=== PATIENT | female | born 1960 | race Caucasian/White ===

== ENCOUNTER 2025-02-04 07:51 | Emergency (ER) | payer MEDICARE, SELFPAY ==
[2025-02-04] VITALS (20 sets, daily range): BP systolic 82–173; BP diastolic 49–81; PULSE 70–73; TEMP 37.3; O2SAT 72–98; BMI 26.9
--- NOTE | 2025-02-04 08:18 | XR_ITS ---
The [address] [address] Patient Name: JESSE FAJARDO MRN: [id number] date: 1960 Sex: F Assigned Patient Location: ED.MAIN Current Patient Location: ER Accession/Order Number: [id number] Exam Date: 02/04/2025 08:48 Report Date: 02/04/2025 08:51 At the request of: RISA ONEILL MD Procedure: XR chest 1V XR chest 1V 02/04/2025 8:34 AM SIGNS AND SYMPTOMS: ^confusion , unresponsive PROTOCOL: Frontal radiograph of the chest COMPARISON: None FINDINGS: The trachea is midline. There is an ET tube present in satisfactory position. There is a dual lead pacer device. The heart and mediastinal structures are within normal limits. Patchy airspace opacities are noted, greatest at the right lung base with a suspected small right pleural effusion. The bony thorax is intact. XR/XR chest 1V IMPRESSION: Patchy airspace opacities are noted, greatest at the right lung base with a suspected small right pleural effusion. This may represent sequelae of volume overload. Impression dictated by: Maykel Macdonald M.D. 02/04/2025 8:51 AM Dictation Location: [place] [address] Electronically authenticated by: [id number] Y Date: 02/04/2025 08:51
--- NOTE | 2025-02-04 08:18 | CT_ITS ---
The [address] [address] Patient Name: JESSE FAJARDO MRN: [id number] date: 1960 Sex: F Assigned Patient Location: ED.MAIN Current Patient Location: Accession/Order Number: [id number] Exam Date: 02/04/2025 08:43 Report Date: 02/04/2025 08:48 At the request of: RISA ONEILL MD Procedure: CT head/brain wo con CT head/brain wo con 02/04/2025 8:36 AM SIGNS AND SYMPTOMS: ^change mental status, unresponsive TECHNIQUE:Multi-detector CT axial slices of the brain were obtained without IV contrast. CT was performed with one or more of the following dose reduction techniques: Automated exposure control, adjustment of the mA and/or kV according to patient size, or use of iterative reconstruction technique. COMPARISON: None. FINDINGS: There is no shift of the midline structures, acute intracranial bleeding, mass effects, or evidence of acute ischemia. Atherosclerotic noted in the intracranial segments of the internal carotid arteries and V4 segments of the vertebral arteries. The ventricular system is normal in size. The brainstem and the cerebellum are unremarkable. The visualized intraorbital contents, the visualized paranasal sinuses, and the infratemporal soft tissues show no acute abnormality. The osseous structures in the skull base and the calvarium show no abnormality. CT/CT head/brain wo con IMPRESSION: No acute intracranial pathology. Impression dictated by: Maykel Macdonald M.D. 02/04/2025 8:48 AM Dictation Location: [place] [address] Electronically authenticated by: [id number] Y Date: 02/04/2025 08:48
--- NOTE | 2025-02-04 08:20 | CT_ITS ---
The [address] [address] Patient Name: JESSE FAJARDO MRN: [id number] date: 1960 Sex: F Assigned Patient Location: ED.MAIN Current Patient Location: ED.MAIN Accession/Order Number: [id number] Exam Date: 02/04/2025 08:52 Report Date: 02/04/2025 09:04 At the request of: RISA ONEILL MD Procedure: CT abdomen pelvis w con CT chest w con, CT abdomen pelvis w con 02/04/2025 8:40 AM SIGN AND SYMPTOMS: Altered bowel status, unresponsive CONTRAST: 100 mL of intravenous Omnipaque 300 TECHNIQUE: Multidetector CT axial slices of the chest, abdomen and pelvis were obtainedwith IV contrast. Multiplanar reformats were performed and viewed on a separate workstation and reviewed to further define anatomy and possible pathology. CT was performed with one or more of the following dose reduction techniques: Automated exposure control, adjustment of the mA and/or kV according to patient size, or use of iterative reconstruction technique. COMPARISON: None. FINDINGS: Lower neck: Thyroid gland within normal limits, no supraclavicle adenopathy. Vessels: Atherosclerotic changes are noted thoracic aorta, origins of the great vessels, and coronary arteries there is no evidence of pulmonary embolism. Mediastinum and Khadijah: Within normal limits. ET tube extends through the esophagus into the gastric lumen. Heart: Normal size. No pericardial effusion. Airways: An ET tube is present in satisfactory position Lungs: Emphysematous changes are noted in the lung parenchyma. There is dependent atelectasis at the right lung base. There is scarring in the left upper lobe which is pleural-based. Pleura: Small bilateral pleural effusions are present right greater than left. Chest Wall: There is a pacer device on the left chest wall. Abdomen: Liver: within normal limits. Bile Ducts: Normal caliber. Gallbladder: No calcified gallstones. Normal caliber wall. Pancreas: within normal limits. Spleen: within normal limits. Adrenals: within normal limits. Kidneys: Simple cysts are noted in the left renal cortex requiring no further follow-up Pelvis: Reproductive Organs: No pelvic masses. Ureters: within normal limits. Bladder: There is a Burr catheter in the bladder. Bowel: Normal caliber. An enteric tube is in satisfactory position with the tip in the gastric lumen. Mesenteric Lymph Nodes: No enlarged mesenteric lymph nodes. Peritoneum: There is a small amount of free fluid pelvis. Vessels: Atherosclerotic changes are noted in the abdominal aorta.. Retroperitoneum: within normal limits. Abdominal Wall: There is diffuse anasarca. Bones: Degenerative changes are noted in the thoracolumbar spine, hips, and sacroiliac joints. Spinal cord stimulator. There is a levoconvex curvature of the thoracolumbar spine. CT/CT abdomen pelvis w con IMPRESSION: Emphysematous changes are noted throughout the lung parenchyma. Small bilateral pleural effusions are present right greater than left. There is a small amount of free fluid in the pelvis. This is nonspecific. There is diffuse anasarca. ET tube and enteric tube are in satisfactory position. No acute intra-abdominal pathology. Impression dictated by: Maykel Macdnoald M.D. 02/04/2025 9:04 AM Dictation Location: [employer] Electronically authenticated by: [id number] Y Date: 02/04/2025 09:04
--- NOTE | 2025-02-04 08:20 | CT_ITS ---
The [address] [address] Patient Name: JESSE FAJARDO MRN: [id number] date: 1960 Sex: F Assigned Patient Location: ED.MAIN Current Patient Location: ED.MAIN Accession/Order Number: [id number] Exam Date: 02/04/2025 08:52 Report Date: 02/04/2025 09:04 At the request of: RISA ONEILL MD Procedure: CT abdomen pelvis w con CT chest w con, CT abdomen pelvis w con 02/04/2025 8:40 AM SIGN AND SYMPTOMS: Altered bowel status, unresponsive CONTRAST: 100 mL of intravenous Omnipaque 300 TECHNIQUE: Multidetector CT axial slices of the chest, abdomen and pelvis were obtainedwith IV contrast. Multiplanar reformats were performed and viewed on a separate workstation and reviewed to further define anatomy and possible pathology. CT was performed with one or more of the following dose reduction techniques: Automated exposure control, adjustment of the mA and/or kV according to patient size, or use of iterative reconstruction technique. COMPARISON: None. FINDINGS: Lower neck: Thyroid gland within normal limits, no supraclavicle adenopathy. Vessels: Atherosclerotic changes are noted thoracic aorta, origins of the great vessels, and coronary arteries there is no evidence of pulmonary embolism. Mediastinum and Khadijah: Within normal limits. ET tube extends through the esophagus into the gastric lumen. Heart: Normal size. No pericardial effusion. Airways: An ET tube is present in satisfactory position Lungs: Emphysematous changes are noted in the lung parenchyma. There is dependent atelectasis at the right lung base. There is scarring in the left upper lobe which is pleural-based. Pleura: Small bilateral pleural effusions are present right greater than left. Chest Wall: There is a pacer device on the left chest wall. Abdomen: Liver: within normal limits. Bile Ducts: Normal caliber. Gallbladder: No calcified gallstones. Normal caliber wall. Pancreas: within normal limits. Spleen: within normal limits. Adrenals: within normal limits. Kidneys: Simple cysts are noted in the left renal cortex requiring no further follow-up Pelvis: Reproductive Organs: No pelvic masses. Ureters: within normal limits. Bladder: There is a Burr catheter in the bladder. Bowel: Normal caliber. An enteric tube is in satisfactory position with the tip in the gastric lumen. Mesenteric Lymph Nodes: No enlarged mesenteric lymph nodes. Peritoneum: There is a small amount of free fluid pelvis. Vessels: Atherosclerotic changes are noted in the abdominal aorta.. Retroperitoneum: within normal limits. Abdominal Wall: There is diffuse anasarca. Bones: Degenerative changes are noted in the thoracolumbar spine, hips, and sacroiliac joints. Spinal cord stimulator. There is a levoconvex curvature of the thoracolumbar spine. CT/CT chest w con IMPRESSION: Emphysematous changes are noted throughout the lung parenchyma. Small bilateral pleural effusions are present right greater than left. There is a small amount of free fluid in the pelvis. This is nonspecific. There is diffuse anasarca. ET tube and enteric tube are in satisfactory position. No acute intra-abdominal pathology. Impression dictated by: Maykel Macdonald M.D. 02/04/2025 9:04 AM Dictation Location: [employer] Electronically authenticated by: [id number] Y Date: 02/04/2025 09:04
[2025-02-04 08:26] LABS: pH VBG 7.432 (7.330-7.430)
[2025-02-04 08:27] LABS: PCO2 VBG 77.2 mmHg (40.0-52.0)
[2025-02-04 08:32] LABS: Bilirubin Urine NEGATIVE (NEGATIVE); Blood Urine SMALL (NEGATIVE); Clarity Urine CLEAR (CLEAR); Color Urine YELLOW (YELLOW); Glucose Urine UA NEGATIVE (NEGATIVE); Ketones Urine NEGATIVE (NEGATIVE); Leukocyte Esterase Urine NEGATIVE (NEGATIVE); Nitrite Urine NEGATIVE (NEGATIVE); Protein Urine 30 mg/dL (NEG/TRACE); Specific Gravity Urine 1.025 (1.005-1.025); Urobilinogen Urine 0.2 EU/dL (0.2-1.0)
[2025-02-04 08:34] LABS: Basophils Percent Auto 0.2 % (0.2-2.0); Eosinophils Absolute Auto 0.1 10^3/uL (0.0-0.7); Eosinophils Percent Auto 0.9 % (0.9-7.0); Hematocrit 32.8 % (36.0-48.0); Hemoglobin 9.3 g/dL (12.0-16.0); Immature Granulocytes Abs Auto 0.06 10^3/uL (0.00-0.03); Immature Granulocytes Pct Auto 0.5 % (0.0-0.5); Lymphocytes Absolute Auto 1.7 10^3/uL (1.2-3.8); Lymphocytes Percent Auto 13.1 % (20.5-60.0); Mean Corpuscular HGB Conc 28.4 g/dL (29.9-35.2); Mean Corpuscular Volume 102.2 fL (81.0-99.0); Mean Platelet Volume 10.7 fL (9.5-13.5); Monocytes Absolute Auto 1.1 10^3/uL (0.3-0.8); Monocytes Percent Auto 8.4 % (1.7-12.0); Neutrophils Absolute Auto 9.8 10^3/uL (1.4-6.5); Neutrophils Percent Auto 76.9 % (43.0-75.0); Platelet Count 299 10^3/uL (150-450); Red Cell Distribution Width 20.5 % (11.0-15.0); White Blood Count 12.8 10^3/uL (4.0-11.0)
[2025-02-04 08:39] LABS: Bacteria Urine NONE SEEN #/HPF (NONE SEEN); Mucus Urine MODERATE (NONE SEEN)
[2025-02-04 08:40] LABS: Cast Seen? SEEN #/LPF (NONE SEEN); Crystals Seen? None Seen #/HPF (None Seen); Hyaline Casts Urine FEW; Squamous Epithelial Cell Urine RARE #/LPF (NONE/RARE)
--- NOTE | 2025-02-04 08:44 | ED.GENADUL1 ---
HPI HPI - General Adult General Chief complaint: Cardiac Arrest/CPR Stated complaint: UNRESPONSIVE SOB Time Seen by Provider: 02/04/25 08:18 Mode of arrival: ambulance History of Present Illness HPI narrative: Patient is a 64-year-old female who is presenting to the ER with chief complaint of confusion, change in mental status, unresponsiveness. Patient is presenting from the [facility] facility. Patient was just discharged on Friday from the [facility] [place]. Patient report was very limited by EMS staff and nurse that was taking care of the patient this morning. Nurse have reported to Marisol ISAAC that she had only been taking care of the patient for a few days and have limited information on the patient. Patient is a full code. We do not know patient's medical history, what medications she is on. Unknown if patient is on blood thinners. EMS staff reported that patient blood sugar was above 200, they also reported that patient had a GCS of 10. When patient arrived, she had a GCS of 6, 4 for eyes, 1 for verbal, 1 for responsiveness and motor. Patient will actively be intubated secondary to GCS of 6. Patient is a full code. Patient is on albuterol nebulizers, statin, metoprolol, diabetic medication, warfarin. [id number], paperwork from [facility]. Patient has non-STEMI, chronic respiratory failure with hypoxia and hypercapnia, obstructive sleep apnea with BiPAP, hyperlipidemia, myoclonus. Patient was just recently in the hospital for 17 days. Patient was discharged on January 30. Patient has history of A-fib with ablation. Patient has history of COPD with chronic respiratory failure and wears home oxygen. Patient was last at [facility] for A-fib with RVR on a Cardizem drip, also on a lidocaine drip for wide-complex tachycardia. Patient did have a CTA on January 25 that showed no PE, right-sided pleural effusion, advanced emphysema, All systems are negative except as noted/marked. All systems reviewed and otherwise negative. Nurses note and vital signs reviewed and patient is not hypoxic. General: The patient appears in severe respiratory distress, guppy breathing, increased respiratory rate. Patient is alert and orient x 0, GCS of 6; 4 4 eyes open, 1 for verbal, 1 for motor. Skin: Warm, dry, no pallor noted. There is no rash noted. No petechiae, purpura. Patient has diffuse ecchymosis to the left breast, left side of her chest, left abdomen. states this is from previous ablations and procedures that were done at the [facility]. No new bruising that sees at bedside. She does have a pacemaker/defibrillator in the left upper chest. The area around this is clean, dry, intact. This is old ecchymosis, not new per . Head: Normocephalic, atraumatic; no new scalp hematoma. Eye: Normal conjunctiva, no drainage, EOMI. PERRL, pupils are 4 mm equal, bilateral, sluggish. Ears, Nose, Mouth, and Throat: oral mucosa is dry, patient has her own teeth. No signs of emesis. Nares patent. Mouth without vesicles. Cardiovascular: Regular Rate and Rhythm, no murmur, gallop, rub Respiratory: Patient is in severe distress secondary to short shallow guppy breathing, increased respiratory rate, equal breath sounds bilateral, slightly coarse breath sounds bilateral, right greater than left. GI: no tenderness to palpation, not distended, not rigid, no tympany, no pulsatile mass, no masses appreciated. No rigidity noted. No distention Musculoskeletal: Patient has no movement to bilateral upper or lower extremities. Neurological: A&O x0, GCS of 6. 4 for eyes open,1 for motor, 1 for verbal Psychiatric: Cooperative Related Data Allergies Allergy/AdvReac Type Severity Reaction Status Date / Time nickel Allergy Severe Unknown Verified 02/04/25 09:16 pregabalin (From Lyrica) Allergy Severe Unknown Verified 02/04/25 09:16 zonisamide Allergy Severe Unknown Verified 02/04/25 09:16 Exam Constitutional Vital Signs, click to edit/add: Last Vital Signs Temp 99.2 F 02/04/25 09:15 Pulse 70 02/04/25 09:51 Resp 18 02/04/25 09:51 BP 93/49 02/04/25 09:51 Pulse Ox 92 L 02/04/25 09:50 Course Vital Signs Vital signs: Vital Signs Pulse Rate 70 02/04/25 08:45 Respiratory Rate 21 H 02/04/25 08:45 Pulse Oximetry 95 02/04/25 08:45 Temperature 99.2 F 02/04/25 09:15 Pulse Rate 70 02/04/25 09:51 Respiratory Rate 18 02/04/25 09:51 Blood Pressure 93/49 02/04/25 09:51 Pulse Oximetry 92 L 02/04/25 09:50 Medical Decision Making MDM Narrative Medical decision making narrative: Patient seen and examined: Patient arrived in no acute respiratory distress, guppy breathing, rapid breathing, GCS of 6. Patient was electively intubated. Limited information from nurse from the [facility] [place], EMS staff, no paperwork was provided initially. Sepsis protocol has been initiated. Differential diagnosis includes but is not limited to: Respiratory failure, intracranial hemorrhage, sepsis, dehydration, AMI, ACS, Diagnostics and management: Patient will have laboratory studies Relevant laboratory interpretation: Patient has a troponin of 104, BNP of 1722, lactate 2.7. Patient pH is 7.43, CO2 77, this was a venous blood gas initially. White blood cell count of 12.8. Ammonia 43 Radiological studies: Please see the formal radiological report. Patient Name: JESSE FAJARDO MRN: [id number]:[id number] date: 1960 Sex: F Assigned Patient Location: ED.MAIN Current Patient Location: ED.MAIN Accession/Order Number: [id number] Exam Date: 02/04/2025 08:52 Report Date: 02/04/2025 09:04 At the request of: RISA ONEILL MD Procedure: CT abdomen pelvis w con CT chest w con, CT abdomen pelvis w con 02/04/2025 8:40 AM SIGN AND SYMPTOMS: Altered bowel status, unresponsive CONTRAST: 100 mL of intravenous Omnipaque 300 TECHNIQUE: Multidetector CT axial slices of the chest, abdomen and pelvis were obtainedwith IV contrast. Multiplanar reformats were performed and viewed on a separate workstation and reviewed to further define anatomy and possible pathology. CT was performed with one or more of the following dose reduction techniques: Automated exposure control, adjustment of the mA and/or kV according to patient size, or use of iterative reconstruction technique. COMPARISON: None. FINDINGS: Lower neck: Thyroid gland within normal limits, no supraclavicle adenopathy. Vessels: Atherosclerotic changes are noted thoracic aorta, origins of the great vessels, and coronary arteries there is no evidence of pulmonary embolism. Mediastinum and Khadijah: Within normal limits. ET tube extends through the esophagus into the gastric lumen. Heart: Normal size. No pericardial effusion. Airways: An ET tube is present in satisfactory position Lungs: Emphysematous changes are noted in the lung parenchyma. There is dependent atelectasis at the right lung base. There is scarring in the left upper lobe which is pleural-based. Pleura: Small bilateral pleural effusions are present right greater than left. Chest Wall: There is a pacer device on the left chest wall. Abdomen: Liver: within normal limits. Bile Ducts: Normal caliber. Gallbladder: No calcified gallstones. Normal caliber wall. Pancreas: within normal limits. Spleen: within normal limits. Adrenals: within normal limits. Kidneys: Simple cysts are noted in the left renal cortex requiring no further follow-up Pelvis: Reproductive Organs: No pelvic masses. Ureters: within normal limits. Bladder: There is a Burr catheter in the bladder. Bowel: Normal caliber. An enteric tube is in satisfactory position with the tip in the gastric lumen. Mesenteric Lymph Nodes: No enlarged mesenteric lymph nodes. Peritoneum: There is a small amount of free fluid pelvis. Vessels: Atherosclerotic changes are noted in the abdominal aorta.. Retroperitoneum: within normal limits. Abdominal Wall: There is diffuse anasarca. Bones: Degenerative changes are noted in the thoracolumbar spine, hips, and sacroiliac joints. Spinal cord stimulator. There is a levoconvex curvature of the thoracolumbar spine. CT/CT chest w con IMPRESSION: Emphysematous changes are noted throughout the lung parenchyma. Small bilateral pleural effusions are present right greater than left. There is a small amount of free fluid in the pelvis. This is nonspecific. There is diffuse anasarca. ET tube and enteric tube are in satisfactory position. No acute intra-abdominal pathology. Impression dictated by: Maykel Macdonald M.D. 02/04/2025 9:04 AM Reevaluation: Shared decision making: I discussed with the patient the necessary laboratory findings and radiological findings. Social barriers to healthcare: There are no food insecurities, there is no issue with transportation, there are no insurance barriers. Disposition: I discussed with the patient COMPARISON: None. FINDINGS: There is no shift of the midline structures, acute intracranial bleeding, mass effects, or evidence of acute ischemia. Atherosclerotic noted in the intracranial segments of the internal carotid arteries and V4 segments of the vertebral arteries. The ventricular system is normal in size. The brainstem and the cerebellum are unremarkable. The visualized intraorbital contents, the visualized paranasal sinuses, and the infratemporal soft tissues show no acute abnormality. The osseous structures in the skull base and the calvarium show no abnormality. CT/CT head/brain wo con IMPRESSION: No acute intracranial pathology. Impression dictated by: Maykel Macdonald M.D. 02/04/2025 8:48 AM COMPARISON: None FINDINGS: The trachea is midline. There is an ET tube present in satisfactory position. There is a dual lead pacer device. The heart and mediastinal structures are within normal limits. Patchy airspace opacities are noted, greatest at the right lung base with a suspected small right pleural effusion. The bony thorax is intact. XR/XR chest 1V IMPRESSION: Patchy airspace opacities are noted, greatest at the right lung base with a suspected small right pleural effusion. This may represent sequelae of volume overload. Impression dictated by: Maykel Macdonald M.D. 02/04/2025 8:51 AM GCS of 6. Procedure note, intubation, Procedure note. Procedure done by . intubation. patient was preoxygenated with [id number], patient maintain occupation in the high 90s% saturation. A 4-0 Mac blade was used initially. The vocal cords were somewhat visualized. ET tube was placed, however there was belly rise with [id number], the ET tube was removed. Patient continue with [id number] maintaining oxygen in the mid to high 90s. I then used a 3-0 glide scope. Good visualization of the cords. ET tube was seen passing the cords. Initially the ET tube was placed at 25 cm at the teeth. Patient had increased breath sounds on the right compared to left. This was pulled back to 23 at the teeth. Patient equal chest rise bilateral, good condensation, good yellow exchange on the capnometer, equal breath sounds bilateral.. Patient's dentition are intact. A 7.5 ET tube was used. The balloon was checked with 10 cc of air prior to used. There is no holes in the balloon. Vocal cords were visualized well with the glide scope. The ET tube was visualized passing through the vocal cords. Patient had good color change on capnometer. Patient had equal breath sounds bilateral, good condensation in the ET tube. The ET tube was secured at 25cm at the teeth initially and then 23 cm at the teeth. Patient tolerated the procedure well without difficulty, no trauma was induced. dentition remained intact. Postintubation chest x-ray was done, patient's ET tube is sitting above the diane. no emesis occurred. MDM: Patient initially arrived, she had a GCS of 6. Patient was electively intubated. OG was placed, Burr was placed, 2 IVs were established. Patient's extremities were cold, patient was started on the first liter of warmed fluids. We were then able to get a rectal temperature that measured 99.2. Patient's heart rate and blood pressure have been normal. Patient had chest x-ray that showed proper placement of ET tube and OG tube. Patient focal to the extremities, the first liter of IV fluids was warmed. Rectal temperature was 99. Second liter of IV fluids was normal temperature. Patient then started 100 cc after that, patient was given a 30 cc/kg bolus for possible sepsis. 0840 initial page is placed to [facility] the [facility], Dr Gunter 0900 I have spoken to Randell Bianchi back at the [facility]. Patient will be admitted to the scale assembly set up worker, Dr. Villalobos. Initial vent settings was tidal volume 400, PEEP 8, initially respiratory rate was 25 until we saw the VBG, then we decreased respiratory rate to 20. 100% oxygen. Patient started fighting the ventilator slightly, patient was given a 40 cc propofol bolus and started on a propofol drip. 0942 ABG pH 7.49, CO12 60, O2 100% ABG . Patient oxygen will be turned down to 70%, decreased rate to 18, maintain PEEP. 0945 Patient was still maintaining a MAP of greater than 65-70. Pressure was dropping slightly however she was maintaining a MAP. Levophed will be started at a low dose to help maintain MAP greater than 65 but also so that propofol may be increased if needed with sedation. Patient has 2 good working IVs of a 22 in the right hand and 820 in the left AC. CT of the head, chest abdomen pelvis showed no acute findings. CT of chest abdomen pelvis shows bilateral pleural effusions, small, right greater than left. Anasarca noted, COPD changes noted. I initially thought patient may have had a right middle lobe with some right lower lobe congestion, vancomycin and Zosyn were started prophylactically. Patient had white blood cell count of 12.8, lactic acid was 2.7. Troponin 104, BNP 1722. Patient has been given IV fluids. Patient was given vancomycin and Zosyn prophylactically. Patient is on Coumadin. INR 2.63 I have spoken to the multiple times, greater than 20 minutes total, updating him multiple times. He gave permission to go back to the [facility] [place], and this is just where patient's care was as well. 0950 [facility] by myself. The report was given, no questions at this time. They are currently speaking to nursing staff and getting ready to load the patient. Patient has had one-on-one care for most of the time that patient had arrived in the ER. She has been here for approximately 2 hours. Critical care time 85 minutes exclusive from separate billable procedures that were performed. The following was considered in the determination of critical care but not limited to the level of medical decision making, intensive cardiac and/or respiratory monitoring, frequent vital sign monitoring, evaluation of laboratory studies, evaluation of radiographic studies, oxygen monitoring, and constant monitoring and speaking to family at bedside Lab Data Lab results reviewed: Yes I reviewed the patient's lab results Labs: Lab Results 02/04/25 02/04/25 02/04/25 Range/Units 08:10 08:18 08:52 WBC 12.8 H (4.0-11.0) 10^3/uL RBC 3.21 L (4.20-5.40) 10^6/uL Hgb 9.3 L (12.0-16.0) g/dL Hct 32.8 L (36.0-48.0) % MCV 102.2 H (81.0-99.0) fL MCH 29.0 (26.7-34.0) pg MCHC 28.4 L (29.9-35.2) g/dL RDW 20.5 H (11.0-15.0) % Plt Count 299 (150-450) 10^3/uL MPV 10.7 (9.5-13.5) fL Neut % (Auto) 76.9 H (43.0-75.0) % Lymph % (Auto) 13.1 L (20.5-60.0) % Sequoyah % (Auto) 8.4 (1.7-12.0) % Eos % (Auto) 0.9 (0.9-7.0) % Baso % (Auto) 0.2 (0.2-2.0) % Neut # (Auto) 9.8 H (1.4-6.5) 10^3/uL Lymph # (Auto) 1.7 (1.2-3.8) 10^3/uL Sequoyah # (Auto) 1.1 H (0.3-0.8) 10^3/uL Eos # (Auto) 0.1 (0.0-0.7) 10^3/uL Baso # (Auto) 0.0 (0.0-0.1) 10^3/uL Abs Immat Gran (auto) 0.06 H (0.00-0.03) 10^3/uL Imm/Tot Granulo (auto) 0.5 (0.0-0.5) % PT 25.3 H (9.0-11.6) sec INR 2.63 APTT 23.6 (22.3-36.2) sec Puncture Site ABG pH (7.350-7.450) ABG pCO2 (35.0-45.0) mmHg ABG pO2 (80.0-100.0) mmHg ABG HCO3 (22.0-26.0) mmol/L ABG O2 Saturation % ABG Base Excess (-2.0-2.0) mmol/L Diego Test (POSITIVE) VBG pH 7.432 H (7.330-7.430) VBG pCO2 77.2 H* (40.0-52.0) mmHg Vent Mode FiO2 % Tidal Volume Sodium 145 (136-145) mmol/L Potassium 4.1 (3.5-5.1) mmol/L Chloride 97 L (98-107) mmol/L Carbon Dioxide 47.3 H (21.0-32.0) mmol/L Anion Gap 4.8 BUN 10.0 (7.0-18.0) mg/dL Creatinine 0.22 L (0.55-1.02) mg/dL Est GFR ( Amer) >60 (>=60 mL/min/1.73m^2) Est GFR (Non-Af Amer) >60 (>=60 mL/min/1.73m^2) BUN/Creatinine Ratio 45.5 Glucose 132 H (74-106) mg/dL Lactate 2.7 H* (0.4-2.0) mmol/L Calcium 8.7 (8.5-10.1) mg/dL Magnesium 1.9 (1.8-2.4) mg/dL Total Bilirubin 0.4 (0.2-1.0) mg/dL AST 45 H (15-37) U/L ALT 36 (14-59) U/L Alkaline Phosphatase 78 (46-116) U/L Ammonia 43 H* (11-32) umol/L Troponin I High Sens 104.8 H* (4.0-51.3) pg/mL NT-Pro-B Natriuret Pep 1722.0 H* (<=900.0) pg/mL Total Protein 5.8 L (6.4-8.2) g/dL Albumin 2.6 L (3.4-5.0) g/dL Globulin 3.2 g/dL Albumin/Globulin Ratio 0.8 Free T4 0.78 (0.76-1.46) ng/dL TSH & Free T4 Interp 0.164 L (0.358-3.740) uIU/mL Urine Color Yellow (YELLOW) Urine Clarity Clear (CLEAR) Urine pH 6.0 (5.0-9.0) Ur Specific Granite 1.025 (1.005-1.025) Urine Protein 30 A (NEG/TRACE) mg/dL Urine Glucose (UA) Negative (NEGATIVE) mg/dL Urine Ketones Negative (NEGATIVE) mg/dL Urine Occult Blood Small A (NEGATIVE) Urine Nitrite Negative (NEGATIVE) Urine Bilirubin Negative (NEGATIVE) Urine Urobilinogen 0.2 (0.2-1.0) EU/dL Ur Leukocyte Esterase Negative (NEGATIVE) Urine RBC 10-20 A (0-2) #/HPF Urine WBC 2-5 A (NONE SEEN) #/HPF Ur Squamous Epith Cells Rare (NONE/RARE) #/LPF Urine Crystals None seen (None Seen) #/HPF Urine Bacteria None seen (NONE SEEN) #/HPF Urine Casts Seen A (NONE SEEN) #/LPF Hyaline Casts Few Urine Mucus Moderate A (NONE SEEN) Urine Yeast Seen A (NONE SEEN) Blood Type A Positive Antibody Screen Negative 02/04/25 Range/Units 09:34 WBC (4.0-11.0) 10^3/uL RBC (4.20-5.40) 10^6/uL Hgb (12.0-16.0) g/dL Hct (36.0-48.0) % MCV (81.0-99.0) fL MCH (26.7-34.0) pg MCHC (29.9-35.2) g/dL RDW (11.0-15.0) % Plt Count (150-450) 10^3/uL MPV (9.5-13.5) fL Neut % (Auto) (43.0-75.0) % Lymph % (Auto) (20.5-60.0) % Sequoyah % (Auto) (1.7-12.0) % Eos % (Auto) (0.9-7.0) % Baso % (Auto) (0.2-2.0) % Neut # (Auto) (1.4-6.5) 10^3/uL Lymph # (Auto) (1.2-3.8) 10^3/uL Sequoyah # (Auto) (0.3-0.8) 10^3/uL Eos # (Auto) (0.0-0.7) 10^3/uL Baso # (Auto) (0.0-0.1) 10^3/uL Abs Immat Gran (auto) (0.00-0.03) 10^3/uL Imm/Tot Granulo (auto) (0.0-0.5) % PT (9.0-11.6) sec INR APTT (22.3-36.2) sec Puncture Site Lr ABG pH 7.499 H (7.350-7.450) ABG pCO2 60.2 H* (35.0-45.0) mmHg ABG pO2 260.0 H (80.0-100.0) mmHg ABG HCO3 46.8 H (22.0-26.0) mmol/L ABG O2 Saturation >100.0 % ABG Base Excess 23.6 H (-2.0-2.0) mmol/L Diego Test Positive (POSITIVE) VBG pH (7.330-7.430) VBG pCO2 (40.0-52.0) mmHg Vent Mode Ac FiO2 100 % Tidal Volume 400 Sodium (136-145) mmol/L Potassium (3.5-5.1) mmol/L Chloride (98-107) mmol/L Carbon Dioxide (21.0-32.0) mmol/L Anion Gap BUN (7.0-18.0) mg/dL Creatinine (0.55-1.02) mg/dL Est GFR ( Amer) (>=60 mL/min/1.73m^2) Est GFR (Non-Af Amer) (>=60 mL/min/1.73m^2) BUN/Creatinine Ratio Glucose (74-106) mg/dL Lactate (0.4-2.0) mmol/L Calcium (8.5-10.1) mg/dL Magnesium (1.8-2.4) mg/dL Total Bilirubin (0.2-1.0) mg/dL AST (15-37) U/L ALT (14-59) U/L Alkaline Phosphatase (46-116) U/L Ammonia (11-32) umol/L Troponin I High Sens (4.0-51.3) pg/mL NT-Pro-B Natriuret Pep (<=900.0) pg/mL Total Protein (6.4-8.2) g/dL Albumin (3.4-5.0) g/dL Globulin g/dL Albumin/Globulin Ratio Free T4 (0.76-1.46) ng/dL TSH & Free T4 Interp (0.358-3.740) uIU/mL Urine Color (YELLOW) Urine Clarity (CLEAR) Urine pH (5.0-9.0) Ur Specific Granite (1.005-1.025) Urine Protein (NEG/TRACE) mg/dL Urine Glucose (UA) (NEGATIVE) mg/dL Urine Ketones (NEGATIVE) mg/dL Urine Occult Blood (NEGATIVE) Urine Nitrite (NEGATIVE) Urine Bilirubin (NEGATIVE) Urine Urobilinogen (0.2-1.0) EU/dL Ur Leukocyte Esterase (NEGATIVE) Urine RBC (0-2) #/HPF Urine WBC (NONE SEEN) #/HPF Ur Squamous Epith Cells (NONE/RARE) #/LPF Urine Crystals (None Seen) #/HPF Urine Bacteria (NONE SEEN) #/HPF Urine Casts (NONE SEEN) #/LPF Hyaline Casts Urine Mucus (NONE SEEN) Urine Yeast (NONE SEEN) Blood Type Antibody Screen ECG Data Attestation: I personally reviewed and interpreted this ECG as follows: (EKG interpretation. Ventricular paced rhythm at 69 beats a minute. QTc of 508. A-flutter noted) Discharge Plan Discharge Chief Complaint: Cardiac Arrest/CPR Clinical Impression: Change in mental status, Acute respiratory failure with hypoxia and hypercarbia, Elevated troponin, Bilateral pleural effusion Patient Disposition: [facility] Time of Disposition Decision: 08:37 [facility] Condition: Critical
--- NOTE | 2025-02-04 08:44 | SWNOTE1 ---
SW called down to ED to provide support for pt's . SW met with , he provided SW with some history. Doctor spoke with pt's . Plan is likely transfer to higher level of care as pt is on ventilator. SW offered to call any other family. Pt's voiced he will do this. VALENTIN took pt's to pt's room.
[2025-02-04 08:46] LABS: Alanine Aminotransferase 36 U/L (14-59); Albumin Globulin Ratio 0.8; Albumin Level 2.6 g/dL (3.4-5.0); Alkaline Phosphatase 78 U/L (46-116); Anion Gap 4.8; Aspartate Amino Transferase 45 U/L (15-37); BUN Creatinine Ratio 45.5; Bilirubin Total 0.4 mg/dL (0.2-1.0); Calcium 8.7 mg/dL (8.5-10.1); Carbon Dioxide 47.3 mmol/L (21.0-32.0); Chloride 97 mmol/L (98-107); Estimated GFR (African America >60 (>=60 mL/min/1.73m^2); Estimated GFR (Non-African Ame >60 (>=60 mL/min/1.73m^2); Globulin 3.2 g/dL; Glucose 132 mg/dL (74-106); Potassium 4.1 mmol/L (3.5-5.1); Sodium 145 mmol/L (136-145); Total Protein 5.8 g/dL (6.4-8.2)
[2025-02-04 08:49] LABS: Red Blood Count 3.21 10^6/uL (4.20-5.40)
[2025-02-04 08:53] LABS: Magnesium 1.9 mg/dL (1.8-2.4); TSH W/ REFLEX FT4 0.164 uIU/mL (0.358-3.740)
[2025-02-04 09:00] LABS: Lactate/Lactic Acid 2.7 mmol/L (0.4-2.0); Troponin I High Sensitivity 104.8 pg/mL (4.0-51.3)
[2025-02-04] MEDS: 0.9 % SODIUM CHLORIDE 1,000 ML 999 ML IV (09:09)
[2025-02-04] MEDS: VANCOMYCIN HCL 1,000 MG in 0.9 % SODIUM CHLORIDE 250 ML 250 MG IV (09:10)
[2025-02-04] MEDS: PIPERACILLIN SODIUM/TAZOBACTAM 3.375 GM in 0.9 % SODIUM CHLORIDE 50 ML IV (09:10)
[2025-02-04] MEDS: 0.9 % SODIUM CHLORIDE 1,000 ML 1000 ML IV (09:11)
[2025-02-04 09:21] LABS: Free T4 0.78 ng/dL (0.76-1.46)
[2025-02-04 09:21] LABS: INR 2.63; Partial Thromboplastin Time 23.6 sec (22.3-36.2); Prothrombin Time 25.3 sec (9.0-11.6)
--- NOTE | 2025-02-04 09:32 | PC.NURSE ---
0920- pt is moving head side to side and slighlty responding to the pain -propofol 40mg ivp given as ordered per dr bowser verbally- zosyn completed at this time - propofolol drip initiated at5 mcg to rt hand after zosyn completed - ptbp 82/60 dr bowser notifgied 3rd bag of ns initiated to rt ac at 100ml/hr as verbally ordered pt bp cycling every 5 min bp at this time is 88/50 70/min pt begins to have jerking motiomnn so propofol increased to 7.5mcg/min at 70kg
[2025-02-04 09:40] LABS: Allen Test POSITIVE (POSITIVE); Base Excess ABG 23.6 mmol/L (-2.0-2.0); Fractionated Inspired Oxygen 100 %; HCO3 ABG 46.8 mmol/L (22.0-26.0); O2 Mode VENT; Oxygen Saturation ABG >100.0 %; Puncture Site LR; pH ABG 7.499 (7.350-7.450)
[2025-02-04 09:41] LABS: Rate 20; Tidal Volume 400; Vent Mode AC
[2025-02-04 09:42] LABS: ABG PCO2 60.2 mmHg (35.0-45.0)
--- NOTE | 2025-02-04 09:45 | PC.NURSE ---
0940- propofolol increased to 15mcg/min 20g to rt ac initiated due bp was 90/[address] bowser notified and resp at bedside at this time - [facility] arrives at this time dr bowser giving report to [facility] team
[2025-02-04 09:46] LABS: Ammonia 43 umol/L (11-32)
--- NOTE | 2025-02-04 09:52 | PC.NURSE ---
[facility] team arrives and dr bowser gives report to team
--- NOTE | 2025-02-04 10:01 | PC.NURSE ---
nurse intake 2500 out 650 ml of dark urine noted - [facility] initiated levophend and propoflol
[2025-02-04 12:53] LABS: Glucometer 181 mg/dL (74-106)
== END 2025-02-04 10:15 | disposition short-term general hospital (02) ==
PROVIDERS: Emergency Provider Emergency Medicine
DX: J96.21 Acute and chronic respiratory failure with hypoxia (principal); J96.22 Acute and chronic respiratory failure with hypercapnia; I25.2 Old myocardial infarction; Z99.81 Dependence on supplemental oxygen; G47.33 Obstructive sleep apnea (adult) (pediatric); E78.5 Hyperlipidemia, unspecified; G25.3 Myoclonus; I48.91 Unspecified atrial fibrillation; J43.9 Emphysema, unspecified; Z95.810 Presence of automatic (implantable) cardiac defibrillator; Z79.01 Long term (current) use of anticoagulants; R79.89 Other specified abnormal findings of blood chemistry; J90 Pleural effusion, not elsewhere classified; R41.82 Altered mental status, unspecified
CPT/HCPCS: 31500; 31720; 36415; 36600; 70450; 71045; 71260; 74177; 80053; 81001; 82140; 82800; 82805; 82948; 83605; 83735; 83880; 84439; 84443; 84484; 85025; 85610; 85730; 86850; 86900; 86901; 87040; 87086; 93005; 94002; 96365; 96368; 99291; 99292; J2543; J2704; J3370; Q9967

== ENCOUNTER 2025-02-15 10:12 | Emergency (ER) | payer MEDICARE, SELFPAY ==
--- OUTSIDE RECORDS SUMMARY | 2025-02-04 08:00 | XMS_ITS | Encounter Summary ---
Author Organization [employer] [facility] [employer] Address [id number] [address] [place] [address] Care Team Providers Care Electrical Sign Servicer Name Role Phone Char Luu MD Primary Care Provider + Encounter Details Date Type Department Care Team (Late st Contact Info) Description 02/04/2025 8:00 AM EDT Ancillary Procedure [facility] [address] [place] [phone] Pain Social History Tobacco Use Types Packs/Day Years Used Date Smoking Tobacco: Former Smokeless Tobacco: Never Alcohol Use Standard Drinks/Week Comments Not Currently 0 (1 standard drink = 0.6 oz pur e alcohol) [facility] Utilities Answer Date Recorded In the past 12 months has [employer] electric, gas, oil, or water company threatened to shut off services in your home? No 02/04/2025 Social Connection and Isolation Panel [NHANES] A nswer Date Recorded In a typical week, how many times do you talk on the phone with family, friends, or neighbors? Three times a week 06/25/2022 How often do you get togethe r with friends or relatives? Never 06/25/2022 How often do you attend chur ch or yazidism services? Never 06/25/2022 Do you belong to any clubs o r organizations such as buddhism groups, unions, fraternal or athletic groups, or school groups? No 06/25/2022 How often do you attend meet ings of the clubs or organizations you belong to? Never 06/25/2022 Are you , , di vorced, , never , or living with a partner? 06/25/2022 AUDIT-C Answer Date Recorded Q1: How often do you have a drink containing alcohol? Never 01/15/2025 Q2: How many drinks containi ng alcohol do you have on a typical day when you are drinking? Patient does not drink Q3: How often do you have si x or more drinks on one occasion? Never 01/15/2025 Overall Financial Resource Strain (CARDIA) Answe r Date Recorded How hard is it for you to pa y for the very basics like food, housing, medical care, and heating? Very hard 06/25/2022 PHQ-2 Answer Date Recorded Total Score 18 01/15/2025 [facility] - Occupational Stress Questionnaire Answer Date Recorded Do you feel stress - tense, restless, nervous, or anxious, or unable to sleep at night because your mind is troubled all the time - these days? To some extent 06/25/2022 Exercise Vital Sign Answer Date Recorde d On average, how many days pe r week do you engage in moderate to strenuous exercise (like a brisk walk)? 0 days 06/25/2022 On average, how many minutes do you engage in exercise at this level? 0 min 06/25/2022 PRAPARE - Transportation Answer Date Re corded In the past 12 months, has l ack of transportation kept you from medical appointments or from getting medications? No 01/14 In the past 12 months, has l ack of transportation kept you from meetings, work, or from getting things needed for daily living? No 02/04/2025 Housing Instability Answer Date Recorde d Are you worried or concerned that in the next two months you may not have stable housing that you own, rent or stay in as a part of a household? No 02/04/2025 Childcare Answer Date Recorded Do problems getting child ca re make it difficult for you to work or study? No 06/25/2022 Employment Answer Date Recorded Do you need help finding a [facility] career center and/or a training program? No 06/25/2022 Hunger Screening Answer Date Recorded Within the past 12 months we worried whether our food would run out before we got money to buy more. Never True 02/04/2025 Within the past 12 months th e food we bought just didn't last and we didn't have money to get more. Never True 02/04/2025 Purpose - Life Answer Date Recorded I have a purpose and direction in my life. Somew hat Disagree 06/25/2022 Comments No Sex and Gender Information Value Date Recorded Sex Assigned at Not on file Legal Sex Female 11:29 AM EDT Gender Identity Not on file Sexual Orientation Not on file documented as of this encounter Functional Status * Intimate Partner Violence Question Answer Date of Assessment Author Within the last year, have you been humiliated or emotionally abused in other ways by your partner or ex-partner? Patient unable to answer 02/04/2025 2:15 PM EDT Annalisa Celis RN Within the last year, have you been afraid of your partner or ex-partner? Patient unable to answer 02/04/2025 2:15 PM EDT Annalisa Celis RN Within the last year, have you been raped or forced to have any kind of sexual activity by your partner or ex-partner? Patient unable to answer 02/04/2025 2:15 PM EDT Annalisa Celis RN Within the last year, have you been kicked, hit, slapped, or otherwise physically hurt by your partner or ex-partner? Patient unable to answer 02/04/2025 2:15 PM EDT Annalisa Celis RN * Question Answer Date of Assessment Author Functional Status Minimum assistance 02/04/2025 2:19 P M EDT Annalisa Celis RN documented as of this encounter Plan of Treatment Upcoming Encounters Date Type Department Care Team (Late st Contact Info) Description 03/01/2025 2:00 PM EDT Clinical Support [facility] [address] [place] [phone] documented as of this encounter Procedures Procedure Name Priority Date/Time Associated Diagnosis Comments XR CHEST 1 VW Routine 02/04/2025 8:00 AM EDT Pain documented in this encounter Results * X-ray chest 1 view (02/04/2025 8:00 AM EDT) us Scanning Provider External IMG DIAGNOSTIC IMAGIN G ORDERABLES Final Result documented in this encounter Visit Diagnoses Diagnosis Pain Generalized pain documented in this encounter Additional Health Concerns Assessment Noted Time PHQ-9 Depression Total Score: 18 025 11:23 AM EDT documented as of this encounter Care Teams Electrical Sign Servicer Relationship Specialty Start Date End Date Char Luu MD [address] [place] [phone] PCP - General Pediatrics 12/02/24 documented as of this encounter
--- OUTSIDE RECORDS SUMMARY | 2025-02-04 08:35 | XMS_ITS | Encounter Summary ---
Author Organization [employer] Address [id number] [address] [place] [address] Care Team Providers Care Graduate Advisor Name Role Phone Char uLu MD Primary Care Provider + Encounter Details Date Type Department Care Team (Late st Contact Info) Description 02/04/2025 8:35 AM EDT Ancillary Procedure [facility] [address] [place] [phone] Pain Social History Tobacco Use Types Packs/Day Years Used Date Smoking Tobacco: Former Smokeless Tobacco: Never Alcohol Use Standard Drinks/Week Comments Not Currently 0 (1 standard drink = 0.6 oz pur e alcohol) [facility] Utilities Answer Date Recorded In the past 12 months has [employer] electric, gas, oil, or water company threatened [...] often do you attend chur ch or protestant services? Never 06/25/2022 Do you belong to any clubs o r organizations such as hinduism groups, unions, fraternal or athletic groups, or [...] Answer Date Recorded Total Score 18 01/15/2025 [facility] - Occupational Stress [...] Recorded Do you need help finding a [facility] career center and/or a training program? [...] [facility] [address] [place] [phone] documented as of this encounter Procedures Procedure Name Priority Date/Time Associated Diagnosis Comments CT BRAIN WO CONT Routine 02/04/2025 8:35 AM EDT Pain documented in this encounter Results * CT brain without contrast (02/04/2025 8:35 AM EDT) us Scanning Provider External IMG CT ORDERABLES Fin al Result documented in this encounter Visit Diagnoses Diagnosis Pain Generalized pain documented in this encounter Additional Health Concerns Assessment Noted Time PHQ-9 Depression Total Score: 18 025 11:23 AM EDT documented as of this encounter Care Teams Graduate Advisor Relationship Specialty Start Date End Date Char Luu MD [address] [place] [phone] PCP - General Pediatrics 12/02/24 documented as of this encounter
--- OUTSIDE RECORDS SUMMARY | 2025-02-04 08:40 | XMS_ITS | Encounter Summary ---
Author Organization [email or web address] [facility] [employer] Address [id number] [address] [place] [address] Care Team Providers Care Wash Plant Operator Name Role Phone Char Luu MD Primary Care Provider + Encounter Details Date Type Department Care Team (Late st Contact Info) Description 02/04/2025 8:40 AM EDT Ancillary Procedure [facility] [address] [place] [place] [phone] Pain Social History Tobacco Use Types Packs/Day Years Used Date Smoking Tobacco: Former Smokeless Tobacco: Never Alcohol Use Standard Drinks/Week Comments Not Currently 0 (1 standard drink = 0.6 oz pur e alcohol) [facility] Utilities Answer Date Recorded In the past 12 months has [employer] electric, gas, oil, or water company threatened [...] often do you attend chur ch or pentecostalism services? Never 06/25/2022 Do you belong to any clubs o r organizations such as christianity groups, unions, fraternal or athletic groups, or [...] Answer Date Recorded Total Score 18 01/15/2025 [facility]at ional Health - Occupational Stress [...] Recorded Do you need help finding a [facility] career center and/or a training program? [...] [facility] [address] [place] [phone] documented as of this encounter Procedures Procedure Name Priority Date/Time Associated Diagnosis Comments CT CHEST W CONT Routine 02/04/2025 8:40 AM EDT Pain documented in this encounter Results * CT chest with contrast (02/04/2025 8:40 AM EDT) us Scanning Provider External IMG CT ORDERABLES Fin al Result documented in this encounter Visit Diagnoses Diagnosis Pain Generalized pain documented in this encounter Additional Health Concerns Assessment Noted Time PHQ-9 Depression Total Score: 18 025 11:23 AM EDT documented as of this encounter Care Teams Wash Plant Operator Relationship Specialty Start Date End Date Char Luu MD [address] [place] [phone] PCP - General Pediatrics 12/02/24 documented as of this encounter
--- OUTSIDE RECORDS SUMMARY | 2025-02-04 08:45 | XMS_ITS | Encounter Summary ---
Author Organization [employer] [employer] [facility] Address [id number] [address] [place] [address] Care Team Providers Care Editor Magazine Name Role Phone Char Luu MD Primary Care Provider + Encounter Details Date Type Department Care Team (Late st Contact Info) Description 02/04/2025 8:45 AM EDT Ancillary Procedure [facility] [address] [place] [id number] Pain Social History Tobacco Use Types Packs/Day Years Used Date Smoking Tobacco: Former Smokeless Tobacco: Never Alcohol Use Standard Drinks/Week Comments Not Currently 0 (1 standard drink = 0.6 oz pur e alcohol) [facility] Utilities Answer Date Recorded In the past 12 months has [employer], gas, oil, or water company threatened [...] often do you attend chur ch or scientologist services? Never 06/25/2022 Do you belong to any clubs o r organizations such as rastafarian groups, unions, fraternal or athletic groups, or [...] Answer Date Recorded Total Score 18 01/15/2025 [facility] - Occupational Stress [...] Recorded Do you need help finding a [facility] career center and/or a training program? [...] Support [facility] [address] [place] [id number] documented as of this encounter Procedures Procedure Name Priority Date/Time Associated Diagnosis Comments CT ABDOMEN AND PELVIS W CONT Routine 02/04/2025 8:45 AM EDT Pain documented in this encounter Results * CT abdomen and pelvis with contrast (02/04/2025 8:45 AM EDT) us Scanning Provider External IMG CT ORDERABLES Fin al Result documented in this encounter Visit Diagnoses Diagnosis Pain Generalized pain documented in this encounter Additional Health Concerns Assessment Noted Time PHQ-9 Depression Total Score: 18 025 11:23 AM EDT documented as of this encounter Care Teams Editor Magazine Relationship Specialty Start Date End Date Char Luu MD [address] [place] [phone] PCP - General Pediatrics 12/02/24 documented as of this encounter
--- OUTSIDE RECORDS SUMMARY | 2025-02-04 10:58 | XMS_ITS | Encounter Summary ---
Author Organization [facility] centerKustomNote tem Address [id number] [address] [place] [address] Care Team Providers Care Creping Machine Operator Name Role Phone Houston Brown MD Primary Care Provider + Reason for Referral * Consultation (Routine) - Pending Review Specialty Diagnoses / Procedures Referred By Contac t Referred To Contact Medication Management Diagnoses senior living (current) use of anticoagulants Typical atrial flutter ([facility]) Khang Moreland MD [address] [place] [address], [address] [place] [id number] Phone: tel: fax: [facility] - Pharmacy Medication Management [address] [address] Phone: tel:[phone] fax: Referral ID Status Reason Start Date Expiration Date Visits Requested Visits Authorized [id number] Pending Review Specialty Services Required 02/12/2025 02/12/2026 1 1 * Misc (Routine) - Pending Review Specialty Diagnoses / Procedures Referred By Contac t Referred To Contact Procedures Discharge Follow-Up Khang Moreland MD [address] [facility], [address] [place] [id number] Phone: tel: fax: Referral ID Status Reason Start Date Expiration Date V isits Requested Visits Authorized [id number] Pending Review 02/12/2025 02/12/2026 1 1 * Misc (Routine) - Pending Review Specialty Diagnoses / Procedures Referred By Contac t Referred To Contact Diagnoses Coagulase negative Staphylococcus bacteremia manager terminal (current) use of anticoagulants Typical atrial flutter ([facility]) COPD, severe ([facility]) Chronic respiratory failure with hypoxia and hypercapnia ([facility]) WILIAN treated with BiPAP Procedures Follow-up with primary care provider Khang Moreland MD [address] [place] [address] Phone: tel: fax: Referral ID Status Reason Start Date Expiration Date V isits Requested Visits Authorized [id number] Pending Review 02/12/2025 02/12/2026 1 1 * Misc (Routine) - Pending Review Specialty Diagnoses / Procedures Referred By Contac t Referred To Contact Procedures Adult diet Khang Moreland MD [address] [place] [address], [address] [place] [address] Phone: tel: fax: Referral ID Status Reason Start Date Expiration Date V isits Requested Visits Authorized [id number] Pending Review 02/12/2025 02/12/2026 1 1 Reason for Visit * Auth/Cert Specialty Diagnoses / Procedures Referred By Contac t Referred To Contact Diagnoses Acute on Chronic Respiratory Failure [address] [address] Referral ID Status Reason Start Date Expiration Date Visits Re quested Visits Authorized [id number] 1 1 Encounter Details Date Type Department Care Team (Latest Contact Info) Description 02/04/2025 10:58 AM EDT - 02/12/2025 4:14 PM EDT Hospital Encounter [facility] - GEN 5 Acute [address] [place] [phone] Alejo Villalobos MD [address] [facility] [address] [facility] [place] [phone] Sha Garcia MD [address] [facility] [place] [address] Coagulase negative Staphylococcus bacteremia (Primary Dx); Chronic low back pain, unspecified back pain laterality, unspecified whether sciatica present; senior living (current) use of anticoagulants; Typical atrial flutter (CMS-HCC); COPD, severe (CMS-HCC); Chronic respiratory failure with hypoxia and hypercapnia (CMS-HCC); WILIAN treated with BiPAP Discharge Disposition: Alf Facility-Medicare Cert Social History Tobacco Use Types Packs/Day Years Used Date Smoking Tobacco: Former Smokeless Tobacco: Never Alcohol Use Standard Drinks/Week Comments Not Currently 0 (1 standard drink = 0.6 oz pur e alcohol) [facility] Utilities Answer Date Recorded In the past 12 months has [employer]), gas, oil, or water [employer] threatened to shut off services in your home? No 02/04/2025 Social Connection and Isolation Panel [NHANES] A nswer Date Recorded In a typical week, how many times do you talk on the phone with family, friends, or neighbors? Three times a week 06/25/2022 How often do you get togethe r with friends or relatives? Never 06/25/2022 How often do you attend [facility] or roman catholic services? Never 06/25/2022 Do you belong to any clubs o r organizations such as voodoo groups, unions, fraternal or athletic groups, or [...] Answer Date Recorded Total Score 18 01/15/2025 [facility] - Occupational [...] Recorded Do you need help finding a l al career center and/or a training program? No 06/25/2022 Hunger Screening Answer Date Recorded Within the past 12 months we worried whether our food would run out before we got money to buy more. Never True 02/07/2025 Within the past 12 months th e food we bought just didn't last and we didn't have money to get more. Never True 02/07/2025 Purpose - Life Answer Date Recorded I have a purpose and direction in my life. Somew hat Disagree 06/25/2022 Comments No Sex and Gender Information Value Date Recorded Sex Assigned at Not on file Legal Sex Female 11:29 AM EDT Gender Identity Not on file Sexual Orientation Not on file documented as of this encounter Last Filed Vital Signs Vital Sign Reading Time Taken Comments Blood Pressure 116/78 02/12/2025 12:03 PM EDT Pulse 70 02/12/2025 2:25 PM EDT Temperature 36.9 C (98.5 F) 02/12/2025 12:03 PM EDT Respiratory Rate 24 02/12/2025 2:25 PM EDT Oxygen Saturation 100% 02/12/2025 2:25 PM EDT Inhaled Oxygen Concentration - - Weight 60.4 kg (133 lb 2.5 oz) 02/12/2025 4:04 A M EDT Height 157.5 cm (5' 2.01 ) 02/06/2025 11:51 PM E DT Body Mass Index 24.35 02/06/2025 11:51 PM EDT documented in this encounter Functional Status * Question Answer Date of Assessment Author Functional Status Assistive device 02/07/2025 10:43 AM EDT Rajesh Paris RN * Intimate Partner Violence Question Answer Date [...] 02/04/2025 2:15 PM EDT Annalisa Celis RN documented as of this encounter Mental Status * Question Answer Entry Date Author Overall Cognitive Status X 02/12/2025 8:55 AM EDT Ethan Servin PTA documented in this encounter Discharge Summaries * Khang Moreland MD - 02/12/2025 11:30 AM EDT Images from the original note were not included. 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 Continue coumadin. COPD on 3L NC on Azithromycin 3 times weekly WILIAN on BiPAP nightly Iron-deficiency anemia on iron tablets every other day Hypothyroidism - unable to resume levothyroxine in due to duloxetine drug interaction Hyperlipidemia on Lipitor Chronic tremors - worked up by Neurology in previous admission. Likely drug- induced tremors (gabapentin, Cymbalta, beta agonist) and likely exacerbated by acute on chronic hypercapnia from COPD. Reduced gabapentin to 100 mg TID. Outpatient follow up in [facility], per PREVIOUS admission recommendation. Chronic back on on chronic opiate use Anxiety disorder, unspecified - on home Cymbalta, BuSpar, duloxetine, trazodone Discharge Disposition: Alf Facility-Medicare Cert Code Status: Full Code Active Issues Requiring Follow-up: Follow up with Primary Care Provider within 1-2 weeks (follow up on sepsis, bacteremia, pneumonia, pain control, weekly labs while on antibiotics, and repeat blood cultures results). Follow up with Pulmonology within 1-2 weeks (follow up on acute hypoxic respiratory failure likely in setting of sepsis, pneumonia, and COPD exacerbation) Follow up with Infectious disease within 1-2 weeks (follow up on staph bacteremia on IV vancomycin and repeat labs in IV vanco level, and repeat blood cultures at specific dates on the order requisition) Follow up with palliative care within 1-2 weeks (follow up on code status discussion and constipation on Dulcolax) Outpatient Follow-up: Future Appointments Date Time Provider Department Center 03/01/2025 2:00 PM [facility] Referrals and Follow-ups to Schedule Ambulatory referral to Anticoagulation Monitoring Home health agency or extended care facility: No Comment - SNF Bridging preference for procedure/surgery: No bridging is necessary Date warfarin started: 02/06/2025 Comment - Home med Warfarin tablet strength: 3 mg Current dosing instructions: Dose Coumadin based on INR and should be adjusted by anticoagulation clinic/PCP Basic Metabolic Panel (Once a week) Release to patient via MyChart?: Immediate Blood culture (2) Obtain repeat blood cultures on 03/04/2025 and 03/18/2025. Send the results to 1. HOUSTON BROWN MD, PHD [address] [facility] [phone] Isiah Felix [facility] [address] [facility] [address] [facility] Infectious Disease [facility] [phone] Release to patient via MyChart?: Immediate CBC auto differential (Once a week) Release to patient via MyChart?: Immediate Vancomycin, trough (Once a week) Release to patient via MyChart?: Immediate Test Results Pending at Discharge: DETAILS OF HOSPITAL STAY Presenting Problem: Tachycardia [R00.0] Acute on chronic respiratory failure ([facility]) [J96.20] Non-sustained ventricular tachycardia ([facility]) [I47.29] Consulting Services: Consults: Cardiology, Infectious Disease, Pulmonology, and Palliative Care Hospital Course: Minnie Cortez is a 64 y.o. female with a past medical history of chronic hypercarbic respiratory failure secondary to COPD on 3L O2 (baseline CO2: 60), WILIAN, and paroxysmal A-Fib on Warfarin s/p prior DCCV, CTI RFA ablation with dual-chamber pacemaker placement on previous admission one week ago. Patient was recently hospitalized at [facility] from 02/03 01/30 due to Afib with RVR, and situation was C/B intubation sedation in the ICU due to altered mentation and removing BiPAP machine from progressive unit. Patient was extubated after a couple of days, and had AV node RFA with dual chamber pacemaker placement by electrophysiology and recommended to continue flecainide and metoprolol if converted back to AFib with RVR. Patient was discharged on therapeutic range Coumadin INR 2.8, and was sent [place]S near [place]. Patient was found unresponsive at SNF, brought to the hospital, intubated, admitted to ICU for acute on chronic hypoxic hypercapnic respiratory failure. Patient was treated for COPD exacerbation with5 day course of prednisone along with DuoNeb and Breo Ellipta. Device interrogation of dual-chamberpacemaker resulted with no events in the past 24 hours (02/05/2025). Electrophysiology consulted and discontinued flecainide and metoprolol. EP recommended continuing anticoagulation with warfarin for thromboembolic prophylaxis. Patient was found to have staph hominis bacteremia likely source ppm. Id has evaluated the site of PPM There was some hematoma around the pacer site but no erythema or signs of cellulitis. It was minimally tender to palpation in no obvious pocket infection. Repeat bloodcultures are negative. Per ID, repeat CT chest from 02/04 and 3 do not appear significantly different. TTE negative for endocarditis. Id recommended IV Vanco x2 weeks of therapy (EOT 02/18/2025) followed by surveillance blood cultures at 2 and 4 weeks post antibiotic completion (03/04/2025 and 03/18/2025 respectively). Monitor CBC, BMP, and vanco levels weekly. Patient has a history of hypothyroidism but unable to resume home levothyroxine due to duloxetine drug interaction. Patient has chronic tremors in bilateral upper extremities which are notable this admission. It has been worked up by Neurology in previous admission. Likely drug induced tremors (gabapentin, Cymbalta, and beta agonist) in likely exacerbated by acute on chronic hypercapnia from COPD. Upper extremity tremors did slowly improve with improvement in her clinical status and respiratorystatus. Patient is supposed to follow up with Neurology as outpatient and [facility], per previous admission recommendation. On the day of discharge, patient appears comfortable on 3 L NC, her baseline. Patient is anxious togo to SNF. Patient denied fever, chills, nausea, and vomiting. Patient states her upper extremity tremor comes and goes. Patient is agreeable to discharge today. Today, 02/12/2025 , patient is AAOx3, in NAD, tolerating diet well, with no acute concerns or complaints. Aware and agreeable to plan for discharge to SNF. Patient is medically ready and cleared for discharge with appropriate follow ups in place. Physical Exam at Discharge: DISCHARGE CONDITION: Stable Pulse: 70 Resp: 22 BP: 116/78 Temp: 36.9 ??C (98.5 ??F) Weight: Weight: 60.4 kg (133 lb 2.5 oz) Physical Exam Vitals reviewed. Constitutional: General: She is not in acute distress. Appearance: She is ill-appearing. Eyes: General: No scleral icterus. Right eye: No discharge. Left eye: No discharge. Cardiovascular: Rate and Rhythm: Normal rate. Pulmonary: Effort: No respiratory distress. Breath sounds: No wheezing or rales. Comments: On 3L NC Abdominal: General: There is no distension. Tenderness: There is no abdominal tenderness. There is no guarding or rebound. Musculoskeletal: General: No swelling or tenderness. Skin: General: Skin is warm. Coloration: Skin is not jaundiced. Neurological: Mental Status: She is oriented to person, place, and time. Mental status is at baseline. Comments: Slight tremors in upper extremities (mild improvement from her baseline) Psychiatric: Mood and Affect: Mood normal. LABS Results from last 7 days Lab Units 02/12/2543702/11/2551802/10/25 0518 WBC x10E9/L 6.1 6.6 5.1 HEMOGLOBIN g/dL 9.5* 10.2* 9.6* HEMATOCRIT % 29.9* 31.9* 30.5* PLATELETS X10E9/L 179 159 129* Results from last 7 days Lab Units 02/12/25 0438 02/11/25 0519 02/10/25 0518 02/07/25 0217 02/06/25 0201 APTT sec -- -- -- -- 26 INR 2.0* 2.1* 1.8* < > 1.8* < > = values in this interval not displayed. Results from last 7 days Lab Units 02/12/25 0438 02/11/25 1503 02/11/2519 02/10/25 0518 SODIUM mmol/L 147* -- 146 145 POTASSIUM mmol/L 4.1 4.0 3.8 4.3 CHLORIDE mmol/L 94* -- 97* 98 CO2 mmol/L >45* -- >45* 45* BUN mg/dL 10 -- 12 10 CREATININE mg/dL 0.25* -- 0.28* 0.28* CALCIUM mg/dL 8.4* -- 8.3* 8.3* PHOSPHORUS mg/dL 2.7 -- 2.6 2.5 MAGNESIUM mg/dL 2.0 2.1 1.8 1.9 Results from last 7 days Lab Units 02/12/25 0438 02/11/25 0519 02/10/25 0518 ALBUMIN g/dL 3.2 3.4 3.2 PROTEIN TOTAL g/dL 4.8* 5.1* 4.9* ALT U/L 12 12 13 AST U/L 12 9 9 ALK PHOS U/L 48 49 46 Results from last 7 days Lab Units 02/12/25 0438 02/11/25 0519 02/10/25 0518 GLUCOSE mg/dL 91 194* 87 Lab Results Component Value Date HGBA1C 4.8 02/04/2025 Lab Results Component Value Date SPECIFICGRA 1.032 02/04/2025 LEUKOCYTE Negative 02/04/2025 UROBILINOGEN <1.1 eu/dL 02/04/2025 IMAGING X-ray chest 1 view Result Date: 02/05/2025 CLINICAL INFORMATION: Shortness of breath, difficulty breathing. TECHNIQUE: Chest radiograph, single AP view. COMPARISON: 02/04/2025. FINDINGS Endotracheal tube and right IJ catheter in similar position. Enteric tube sidehole projects over the stomach. Cardiomediastinal silhouette is unchanged. No pneumothorax. Small bilateral pleural effusions. Mild central pulmonary vascular congestion, similar to prior. IMPRESSION: * No significant interval change. Approved by Resident Mathieu Jones DO on 02/05/2025 7:12 AM Manuel Mclean have personally reviewed the image(s) and agree with and/or edited the report Finalized by Manuel Milligan on 02/05/2025 8:00 AM X-ray chest 1 view Result Date: 02/04/2025 Chest radiograph dated: 02/04/2025. Reason for study: new line cvc. Comparison studies: Chest x-ray from 01/28/2025. Technique: Portable upright chest view AP. Findings/impression: 1. Endotracheal tubedistal tip is approximately 3.5 cm from the diane. Right central venous catheter with the distal tip at the central right brachiocephalic vein. Enteric tube is seen coursing below the level of the diaphragm with the distal tip not seen. 2. Nonenlarged cardiomediastinal silhouette. Possible trace interstitial edema more pronounced on the right. 3. Small bilateral pleural effusions. Scant bibasilar airspace opacities which may relate to subsegmental atelectatic change versus developing pneumoniain the appropriate clinical setting. Minimally improved aeration of right lung base. 4. No definitive pneumothorax. Finalized by Aden Ellsworth MD on 02/04/2025 1:21 PM LAST ECHO Echo complete W/O contrast Result Date: 02/08/2025 Left Ventricle: Left ventricle appears normal in size. There is mild increased wall thickness/hypertrophy. Systolic function is normal with an ejection fraction of 65-70%. Unable to assess diastolic function due to atrial fibrillation/flutter. Tricuspid Valve: There is moderate regurgitation. RVSP c alculated at 50 mmHg. RVSP is based on RA pressure of 8 mmHg. Right Ventricle: Systolic function isnormal. Normal tricuspid annular plane systolic excursion. A pacer wire is present in the right ventricle. Aorta: The aortic root is normal in size. Pericardium: There is no pericardial effusion. Echo limited W/O contrast Result Date: 01/25/2025 Left Ventricle: Left ventricle is small. There is moderate increased wall thickness/hypertrophy. Systolic function is normal with an ejection fraction of 60-65%. Echo complete W/O contrast Result Date: 01/15/2025 Left Ventricle: Left ventricle appears normal in size. Systolic function is normal with an ejectionfraction of 55-60%. CULTURES Microbiology Results No results found for the last 168 hours. MEDICATION LIST Medication List START taking these medications Instructions Last Dose Given Next Dose Due ferrous sulfate 325 (65 FE) MG tablet Take 1 tablet (325 mg total) by mouth every other day for 60 days. * heparin lock flush (porcine) 10 unit/mL injection Infuse 1-5 mL (10-50 Units total) into a venous catheter as needed (line care per nursing agency protocol.). * heparin lock flush (porcine) injection 100 unit/mL solution Infuse 1-5 mL (100-500 Units total) into a venous catheter as needed (line care per nursing agency protocol.). HYDROcodone-acetaminophen 5-325 mg per tablet Commonly known as: NORCO Take 1 tablet by mouth every 6 (six) hours as needed for pain for up to 3 days. Max Daily Amount: 4tablets sodium chloride injection Infuse 10-20 mL into a venous catheter as needed for line care (line care per nursing agency protocol.). vancomycin 1,000 mg in sodium chloride 0.9 % 250 mL IVPB W/ADAPTER Infuse 1,000 mg into a venous catheter every 12 (twelve) hours for 8 days. End of therapy 02/18/2025 Weekly CBC, BMP and vanco trough while on vancomycin , fax results to [phone] * This list has 2 medication(s) that are the same as other medications prescribed for you. Read thedirections carefully, and ask your doctor or other care provider to review them with you. CHANGE how you take these medications Instructions Last Dose Given Next Dose Due warfarin 1 mg tablet Commonly known as: COUMADIN Start taking on: February 13, 2025 What changed: how much to take how to take this when to take this additional instructions Take 3 tablets (3 mg total) by mouth in the evening. CONTINUE taking these medications Instructions Last Dose Given Next Dose Due acetaminophen 325 mg tablet Commonly known as: TYLENOL Take 2 tablets (650 mg total) by mouth every 6 (six) hours as needed for pain. * albuterol 90 mcg/actuation inhaler Commonly known as: PROVENTIL HFA;VENTOLIN HFA Inhale 2 puffs every 6 (six) hours as needed for wheezing. * albuterol 0.63 mg/3 mL nebulizer solution Commonly known as: ACCUNEB Inhale 3 mL (0.63 mg total) by nebulization every 4 (four) hours as needed for wheezing or shortness of breath. atorvastatin 10 mg tablet Commonly known as: LIPITOR Take 1 tablet (10 mg total) by mouth in the morning. azithromycin 250 mg tablet Commonly known as: ZITHROMAX Take 1 tablet (250 mg total) by mouth 3 (three) times a week. Friday, , Friday busPIRone 5 mg tablet Commonly known as: BUSPAR Take 2 tablets (10 mg total) by mouth nightly. DULOXETINE ORAL Take 80 mg by mouth in the morning. rjyggtvgijj-sdcrpvcbq-brdecdux 100-62.5-25 mcg blister with device Commonly known as: TRELEGY ELLIPTA Inhale 1 puff in the morning. Lot Number: [id number] Expiration Date: 01/2026 Lot Number: [id number] Expiration Date: 02/2026. furosemide 20 mg tablet Commonly known as: LASIX Take 1 tablet (20 mg total) by mouth daily. gabapentin 300 mg capsule Commonly known as: NEURONTIN Take 1 capsule (300 mg total) by mouth 3 (three) times a day. hydrOXYzine 25 mg tablet Commonly known as: ATARAX Take 1 tablet (25 mg total) by mouth as needed in the morning and 1 tablet (25 mg total) as needed at noon and 1 tablet (25 mg total) as needed in the evening and 1 tablet (25 mg total) as needed before bedtime. ipratropium-albuteroL 0.5 mg-3 mg(2.5 mg base)/3 mL nebulizer Commonly known as: DUONEB Inhale 3 mL by nebulization in the morning and 3 mL at noon and 3 mL in the evening. liothyronine 25 MCG tablet Commonly known as: CYTOMEL Take 1 tablet (25 mcg total) by mouth in the morning. loratadine 10 mg tablet Commonly known as: CLARITIN Take 1 tablet (10 mg total) by mouth in the morning. MUCINEX 600 mg tablet extended release 12hr Generic drug: guaiFENesin Take 1 tablet (600 mg total) by mouth every 12 (twelve) hours. oxygen Inhale continuously. traZODone 50 mg tablet Commonly known as: DESYREL Take 0.5 tablets (25 mg total) by mouth nightly. * This list has 2 medication(s) that are the same as other medications prescribed for you. Read thedirections carefully, and ask your doctor or other care provider to review them with you. STOP taking these medications metoprolol succinate XL 50 mg 24 hr tablet Commonly known as: TOPROL XL Where to Get Your Medications These medications were sent to [address] [place] [address] [address] ferrous sulfate 325 (65 FE) MG tablet You can get these medications from any pharmacy Bring a paper prescription for each of these medications HYDROcodone-acetaminophen 5-325 mg per tablet vancomycin 1,000 mg in sodium chloride 0.9 % 250 mL IVPB W/ADAPTER Information about where to get these medications is not yet available Ask your nurse or doctor about these medications heparin lock flush (porcine) 10 unit/mL injection heparin lock flush (porcine) injection 100 unit/mL solution sodium chloride injection warfarin 1 mg tablet The patient is stable for discharge to SNF. Return precautions were discussed. We discussed the need for follow up with primary care, pulmonology cardiology/electrophysiology, Infectious Disease, andpalliative Care. The patient stated their understanding and has no further questions at this time. Khang Moreland MD Internal Medicine Resident 02/12/25 12:37 PM Cosigned by Sha Garcia MD at 02/12/2025 5:16 PM EDT Associated attestation - Sha Garcia MD - 02/12/2025 5:16 PM EDT I have seen and discussed the patient during rounds. I performed and participated in the critical/gamez portions of the service. I was directly involved in the management and treatment plan of the patient. I reviewed the resident's note and agree with the findings and plan. I have spent 40 minutes preparing this discharge Sha Garcia MD [facility] Clinical assistant professor of chemistry in the Department of Internal Medicine , [facility] documented in this encounter Discharge Instructions * Discharge Instructions* Khang Moreland MD - 02/12/2025 10:54 AM EDT INTERNAL MEDICINE DISCHARGE INSTRUCTIONS: - Meds - Start taking: Oral ferrous sulfate. IV vancomycin as prescribed. Stop taking: Metoprolol and flecainide, per electrophysiology Please continue taking your medications as prescribed - Diet & Activity - We recommend your diet be regular diet as tolerated Avoid intense physical activity until evaluated by your primary care provider. - Follow Ups - Please follow up with the following specialists when you leave: Follow up with Primary Care Provider within 1-2 weeks (follow up on sepsis, bacteremia, pneumonia, pain control, weekly labs while on antibiotics, and repeat blood cultures results). Follow up with Pulmonology within 1-2 weeks (follow up on acute hypoxic respiratory failure likely in setting of sepsis, pneumonia, and COPD exacerbation) Follow up with Infectious disease within 1-2 weeks (follow up on staph bacteremia on IV vancomycin and repeat labs in IV vanco level, and repeat blood cultures at specific dates on the order requisition) Follow up with palliative care within 1-2 weeks (follow up on code status discussion and constipation on Dulcolax) - Emergencies - If you experience new or worsening symptoms, including chest pain or shortness of breath, please call 911 or return to the emergency department immediately. documented in this encounter Medications at Time of Discharge acetaminophen (TYLENOL) 325 mg tablet Take 2 tablets (650 mg total) by mouth every 6 (six) hours as needed for pain. 30 tablet 01/25/2025 albuterol (ACCUNEB) 0.63 mg/3 mL nebulizer solution Inhale 3 mL (0.63 mg total) by nebulization every 4 (four) hours as needed for wheezing or shortness of breath. albuterol (PROVENTIL HFA;VENTOLIN HFA) 90 mcg/actuation inhaler Inhale 2 puffs every 6 (six) hours as needed for wheezing. atorvastatin (LIPITOR) 10 mg tablet Take 1 tablet (10 mg total) by mouth in the morning. azithromycin (ZITHROMAX) 250 mg tabletIndications :COPD, severe (CMS-HCC) Take 1 tablet (250 mg total) by mouth 3 (three) times a week. Friday, , Friday02/02/2025 6 busPIRone (BUSPAR) 5 mg tablet Take 2 tablets (10 mg total) by mouth nightly. duloxetine HCl (DULOXETINE ORAL) Take 80 mg by mouth in the morning. ferrous sulfate 325 (65 FE) MG tablet Take 1 tablet (325 mg total) by mouth every other day for 60 days. 30 tablet 02/12/2025 5 fluticasone-umecl idin-vilanter (TRELEGY ELLIPTA) 100-62.5-25 mcg blister with deviceIndications :COPD, severe ([facility]) Inhale 1 puff in the morning. Lot Number: [id number] Expiration Date: 01/2026 Lot Number: [id number] Expiration Date: 02/2026. 2 each 11/15/2024 furosemide (LASIX) 20 mg tablet Take 1 tablet (20 mg total) by mouth daily. 01/30/2025 gabapentin (NEURONTIN) 300 mg capsuleIndication s:Myoclonus Take 1 capsule (300 mg total) by mouth 3 (three) times a day. 01/30/2025 guaiFENesin (MUCINEX) 600 mg tablet extended release 12hr Take 1 tablet (600 mg total) by mouth every 12 (twelve) hours. heparin lock flush, porcine, 10 unit/mL injection Infuse 1-5 mL (10-50 Units total) into a venous catheter as needed (line care per nursing agency protocol.). 02/09/2025 heparin lock flush, porcine, injection 100 unit/mL solution Infuse 1-5 mL (100-500 Units total) into a venous catheter as needed (line care per nursing agency protocol.). 02/09/2025 HYDROcodone-aceta minophen (NORCO) 5-325 mg per tabletIndications :Chronic low back pain, unspecified back pain laterality, unspecified whether sciatica present Take 1 tablet by mouth every 6 (six) hours as needed for pain for up to 3 days. Max Daily Amount: 4 tablets 12 tablet 02/12/2025 5 hydrOXYzine (ATARAX) 25 mg tablet Take 1 tablet (25 mg total) by mouth as needed in the morning and 1 tablet (25 mg total) as needed at noon and 1 tablet (25 mg total) as needed in the evening and 1 tablet (25 mg total) as needed before bedtime. ipratropium-albut Fredy (DUONEB) 0.5 mg-3 mg(2.5 mg base)/3 mL nebulizerIndicati ons:COPD, severe ([facility]) Inhale 3 mL by nebulization in the morning and 3 mL at noon and 3 mL in the evening. 01/30/2025 liothyronine (CYTOMEL) 25 MCG tablet Take 1 tablet (25 mcg total) by mouth in the morning. 01/30/2025 loratadine (CLARITIN) 10 mg tablet Take 1 tablet (10 mg total) by mouth in the morning. oxygen Inhale continuously. sodium chloride injection Infuse 10-20 mL into a venous catheter as needed for line care (line care per nursing agency protocol.). 02/09/2025 traZODone (DESYREL) 50 mg tablet Take 0.5 tablets (25 mg total) by mouth nightly. vancomycin 1,000 mg in sodium chloride 0.9 % 250 mL IVPB W/ADAPTER Infuse 1,000 mg into a venous catheter every 12 (twelve) hours for 8 days. End of therapy 02/18/2025 Weekly CBC, BMP and vanco trough while on vancomycin , fax results to [phone] 1 each 02/10/2025 warfarin (COUMADIN) 1 mg tablet Take 3 tablets (3 mg total) by mouth in the evening. 02/13/2025 documented as of this encounter Progress Notes * Harish Grewal MD - 02/12/2025 2:34 PM EDT Images from the original note were not included. Academic Pulmonology Progress Note Patient - Minnie Cortez Age - 64 y.o. - 1960 Date of Admission - 02/04/2025 10:58 AM ICU Length of Stay: 5d 2h History of present illness: Minnie Cortez is a 64 y.o. female with a past medical history of chronic hypoxic, hypercapnic respiratory failure secondary to COPD on 3L O2 (baseline CO2: 60), WILIAN, and paroxysmal A-Fib on Warfarins/p prior DCCV, CTI RFA ablation with dual-chamber pacemaker placement. Patient was recently hospitalized at [facility] from 02/03 01/30 due to Afib with RVR, and situation was complicated by intubation in the ICU due to altered mentation. Patient was extubated after a couple ofdays, and had AV node RFA with dual chamber pacemaker placement by electrophysiology and recommended to continue flecainide and metoprolol if converted back to AFib with RVR. Patient was discharged on therapeutic range Coumadin INR 2.8, and was sent to [facility] near [place]. Patient was readmitted from [facility], after being found unresponsive at [facility] and had a GCS score of [address] to [address] hospital and decreased to 6 which required intubation for protection of airway. Patient was then transferred back to [facility] ICU. CT brain without contrast and CT chest abdomen and pelvis with contrast were done at [place], and only remarkable finding was pleural effusio n b/l with jdjpv-[id number]-smll-left, and some anasarca in the abdomen. Oliveros interrogation of AICD showed no event occurred any time during this morning or afternoon. Electrophysiology was consulted for evaluation as patient is telemetry showed concerns for NSVT. No further information was known, and patient was intubated and sedated upon arrival. Patient was extubated on 02/05. Subjective No new events overnight. Patient tolerated BiPAP overnight and was weaned to her baseline 3 L nasalcannula in the morning. Discharge planning for today is in progress. Objective Vitals Temp: [36.8 ??C (98.3 ??F)-37 ??C (98.6 ??F)] 36.9 ??C (98.5 ??F) Pulse: [70] 70 Resp: [14-24] 22 BP: (116-137)/(67-109) 116/78 SpO2: [95 %-100 %] 100 % O2 Device: Nasal cannula O2 Flow Rate (L/min): [3 L/min-4 L/min] 3 L/min Weight: Admission weight: 57.2 kg (126 lb 1.7 oz) Wt Readings from Last 3 Encounters: 02/12/25 60.4 kg (133 lb 2.5 oz) 01/30/25 57.2 kg (126 lb 1.7 oz) 01/14/25 59 kg (130 lb 1.1 oz) Input/Output: Intake/Output Summary (Last 24 hours) at 02/12/2025 1435 Last data filed at 02/12/2025 1207 Gross per 24 hour Intake 1010 ml Output 3200 ml Net -2190 ml Ventilator: Settings Vent Mode: S/T FiO2 (%): 40 % Resp Rate (Set): 8 Vt (Set, mL): 450 mL Avea Vt (Set, L): 0.45 Liter PEEP/CPAP (cm H2O): 8 cm H20 MAP: 7.7 I:E Ratio: 1:3:9 Insp Time (sec): 1 sec Insp Rise Time (%): 3 % Trigger Sensitivity Pressure (cm H2O): 1 cm H2O IPAP: 18 EPAP: 6 Humidification: Heat and moisture exchanger Physical Exam Constitutional: General: She is awake. She is not in acute distress. Appearance: Normal appearance. Interventions: Face mask in place. HENT: Head: Normocephalic and atraumatic. Eyes: General: No scleral icterus. Conjunctiva/sclera: Conjunctivae normal. Pupils: Pupils are equal, round, and reactive to light. Cardiovascular: Rate and Rhythm: Normal rate and regular rhythm. Pulses: Normal pulses. Heart sounds: Normal heart sounds. Pulmonary: Effort: Prolonged expiration present. No respiratory distress. Comments: Globally decreased breath sounds bilaterally. On nasal cannula Abdominal: General: Bowel sounds are normal. There is no distension. Tenderness: There is no abdominal tenderness. There is no guarding or rebound. Musculoskeletal: General: No swelling or tenderness. Cervical back: Normal range of motion and neck supple. Right lower leg: No edema. Left lower leg: No edema. Skin: Coloration: Skin is not jaundiced or pale. Neurological: General: No focal deficit present. Mental Status: She is alert. Mental status is at baseline. Cranial Nerves: No cranial nerve deficit. Motor: Tremor present. Psychiatric: Mood and Affect: Mood normal. Behavior: Behavior normal. Behavior is cooperative. Lab Results Results from last 7 days Lab Units 02/12/25 0438 02/11/25 0519 02/10/25 0518 WBC x10E9/L 6.1 6.6 5.1 HEMOGLOBIN g/dL 9.5* 10.2* 9.6* HEMATOCRIT % 29.9* 31.9* 30.5* PLATELETS X10E9/L 179 159 129* Results from last 7 days Lab Units 02/12/25 0438 02/11/25 0519 02/10/25 0518 02/07/25 0217 02/06/25 0201 APTT sec -- -- -- -- 26 INR 2.0* 2.1* 1.8* < > 1.8* < > = values in this interval not displayed. Results from last 7 days Lab Units 02/12/25 0438 02/11/25 1503 02/11/25 0519 02/10/25 0518 SODIUM mmol/L 147* -- 146 145 POTASSIUM mmol/L 4.1 4.0 3.8 4.3 CHLORIDE mmol/L 94* -- 97* 98 CO2 mmol/L >45* -- >45* 45* BUN mg/dL 10 -- 12 10 CREATININE mg/dL 0.25* -- 0.28* 0.28* CALCIUM mg/dL 8.4* -- 8.3* 8.3* PHOSPHORUS mg/dL 2.7 -- 2.6 2.5 MAGNESIUM mg/dL 2.0 2.1 1.8 1.9 Results from last 7 days Lab Units 02/12/2543702/11/25 0502/10/25 0518 ALBUMIN g/dL 3.2 3.4 3.2 PROTEIN TOTAL g/dL 4.8* 5.1* 4.9* ALT U/L 12 12 13 AST U/L 12 9 9 ALK PHOS U/L 48 49 46 Results from last 7 days Lab Units 02/12/25 04302/11/2551802/10/25 0518 GLUCOSE mg/dL 91 194* 87 Lab Results Component Value Date HGBA1C 4.8 02/04/2025 Lab Results Component Value Date SPECIFICGRA 1.032 02/04/2025 LEUKOCYTE Negative 02/04/2025 UROBILINOGEN <1.1 eu/dL 02/04/2025 Radiology Fluoroscopy swallow motility function Result Date: 02/11/2025 FL SWALLOW MOTILITY FUNCTION HISTORY: Oropharyngeal dysphagia COMPARISON: 02/07/2025 TECHNIQUE: Video fluoroscopic swallow study was performed in conjunction with speech pathologist. Barium contrast materials of varying consistencies administered. FINDINGS: Fluoroscopy time: 1.2 minutes Reference air kerma: 1.8 mGy Runs: 11 Thin: Intermittent penetration with both straw and cup, more significant with straw. Applesauce: No penetration or aspiration. Fruit: No penetration or aspiration. Cracker: No penetration or aspiration. IMPRESSION: 1. Intermittent penetration of thin liquids as detailed. 2.Please correlate with dedicated speech pathology report for additional details and recommendations.Approved by Jody Bradford MD on 02/11/2025 10:45 AM IFede MD have personally reviewedthe image(s) and agree with and/or edited the report Finalized by Fede Pepper MD on 02/11/2025 10:59 AM X-ray chest 1 view Result Date: 02/10/2025 XR CHEST 1 VW HISTORY: Hypoxia COMPARISON: 02/09/2025. CT chest 02/04/2025 FINDINGS: AP portable upright radiograph obtained. Right-sided PICC line terminates in the SVC. Stable appearance of cardiac pacing device and spinal cord stimulator leads. Emphysematous changes. Small right pleural effusion is mildly improved. Similar appearance of mildly prominent interstitial markings compatible with mildpulmonary edema or chronic interstitial lung disease. IMPRESSION: * Mildly improved small right pleural effusion. * Otherwise no significant interval change. Approved by Jody Mohamud DO on 02/10/2025 9:26 AM Manuel Mclean MD have personally reviewed the image(s) and agree with and/or edited the report Finalized by Manuel Fung MD on 02/10/2025 11:23 AM X-ray chest 1 view Result Date: 02/09/2025 PROCEDURE: Single AP view of the chest. INDICATION: PICC ADJUSTED, CONFIRM NEW PLACEMENT . COMPARISON: Serial chest radiographs most recently dated earlier today at 1:02 PM. FINDINGS: Support lines,tubes, devices, surgical hardware, material: Left chest wall AICD/pacemaker with leads overlying the right atrium and right ventricle. Spinal nerve stimulator. Interval repositioning of right- sided PICC with tip overlying the cavoatrial junction. Lungs and Pleura: See Impression. No pneumothorax. Small layering right pleural effusion. Trace left pleural effusion. Cardiovascular and Mediastinum: The cardiomediastinal silhouette appears grossly stable noting a calcified tortuous aorta. IMPRESSION: 1. Interval repositioning of right-sided PICC with tip overlying the cavoatrial junction. 2. Similar mild interstitial edema and small right pleural effusion. 3. Trace left pleural effusion. 4. Emphysema.. Finalized by Kaci Rodriguez MD on 02/09/2025 3:31 PM Cultures Microbiology Results No results found for the last 168 hours. Medications Scheduled: atorvastatin, 10 mg, oral, Daily azithromycin, 250 mg, oral, Once per day on Friday busPIRone, 10 mg, oral, Nightly DULoxetine, 80 mg, oral, Daily ferrous sulfate, 325 mg, oral, Q48H fluticasone furoate-vilanteroL, 1 puff, inhalation, Daily furosemide, 40 mg, oral, Daily gabapentin, 300 mg, oral, TID ipratropium-albuteroL, 3 mL, nebulization, TID liothyronine, 25 mcg, oral, Daily sennosides-docusate sodium, 2 tablet, oral, BID [COMPLETED] Consult PICC nurse - PICC, , , Once AND sodium chloride, 10 mL, intravenous, Q12H AND sodium chloride, 10 mL, intravenous, PRN AND sodium chloride, 20 mL, intravenous, PRN traZODone, 25 mg, oral, Nightly vancomycin, 1,000 mg, intravenous, Q12H warfarin, 3 mg, oral, Daily Infusions: sodium chloride 0.9 %, 20 mL/hr As Needed: acetaminophen albuterol bisacodyL calcium gluconate OR calcium gluconate OR calcium gluconate dextrose dextrose 50 % in water (D50W) glucagon (human recombinant) guaiFENesin hydrALAZINE HYDROcodone-acetaminophen hydrOXYzine ipratropium-albuteroL magnesium sulfate OR magnesium sulfate potassium chloride OR potassium chloride potassium chloride in water OR potassium chloride in water sodium phosphate IV OR sodium phosphate IV - central line OR sod phos di, mono-K phos mono [COMPLETED] Consult PICC nurse - PICC AND sodium chloride AND sodium chloride AND sodium chloride sodium chloride 0.9 % Assessment MDRO Staphylococcus Hominis Sepsis, likely dual-chamber pacemaker placement source BCx 2/ showed Staphylococcus hominis with multiple resistance genes collected on 02/04 Repeat BCx x2 collected 02/05 NGTD x2 days Acute on chronic hypoxic hypercarbic respiratory failure s/p Intubation and extubation 02/04-02/05 Baseline pCO2 approx 60-[address] chest w/ contrast (02/04) showed right greater than left b/l pleural effusions Paroxysmal atrial fibrillation/flutter with RVR s/p CTI RFA ablation 2021, AV node ablation and dual-chamber pacemaker placement 01/28/25 Oliveros interrogation of dual-chamber pacemaker resulted with no events in the past 24 hours - 02/05/25 EP consultation 02/04/25: discontinue flecanide, metoprolol, recommend anticoagulation with warfarin. COPD on 3L O2, on Azithromycin 3 times weekly Normocytic anemia Hypothyroidism WILIAN Plan Continue nasal cannula 3L NIV nightly and during the day while asleep Continue Lasix Continue Breo Ellipta Continue DuoNebs p.r.n. Continue azithromycin thrice weekly No objection to discharge from pulmonary standpoint. Recommend outpatient follow-up with primary poster Dr. Gunter Cosigned by Wolf Avina MD at 02/12/2025 9:30 PM EDT Associated attestation - Wolf Avina MD - 02/12/2025 9:30 PM EDT Wolf Avina MD [facility] Pulmonary/Critical Care Team Patient examined, chart reviewed, case discussed wit [facility] team, agree with Dr. Carmina Callejas and P. Agree that patient is ready for discharge from Pulmonary perspective. Will need repeat cultures per ID and primary service to ensure clearance in the setting of recentlyplaced pacemaker. 45 minutes spent * Shireen Del Cid APRN-RUBIN - 02/12/2025 1:35 PM EDT Images from the original note were not included. Infectious Diseases Academic Team - Progress Note - Please contact us via [employer]. After hours, call [phone] Patient name: Minnie Cortez Patient Today's Date and Time: 02/12/2025, 1:35 PM Admission Date: 02/04/2025 Primary Care Physician: HOUSTON BROWN MD Impression and Recommendations: CoNS Bacteremia, Staph hominis PAF with RVR, s/p PPM (01/28/2025) Pt recently had a dual chamber pacemaker placed 01/28/2025 for PAF with RVR Blood cultures 02/04/2025 with CoNS, identified as Staph hominis in 2/2 bottles TTE was negative for valve vegetations Blood cultures cleared rapidly as of 02/05/2025 We are recommending IV Vanco x2 weeks of therapy (EOT 02/18/2025) followed by surveillance blood cultures at 2 and 4 weeks post antibiotic completion (03/04/2025 and 03/18/2025 respectively) Follow up a week after discharge Monitor CBC, BMP, and vanco levels weekly - OPAT done and orders placed Prescription put in chart for Vancomycin. Pharmacy note reviewed, keep vanco dose the same at 1000 mg every 12 hours. Follow up in a week. Note she is also on warfarin. No drug interactions with vanco and warfarin. Acute/Chronic Hypoxic Respiratory Failure COPD, on 3L per NC at baseline Pt's O2 needs are near baseline On Azithromycin 3x weekly Subjective Interval History: Pt was seen and examined at bedside, chart/labs/diagnostics reviewed. Follow up for bacteremia on vancomycin. She says the vanco administration hurts a bit sometimes. She has new right forearem bruising. Objective Physical Examination : BP 116/78 Pulse 70 Temp 36.9 ??C (98.5 ??F) (Oral) Resp 22 Ht 157.5 cm (5' 2.01 ) Wt 60.4kg (133 lb 2.5 oz) SpO2 100% BMI 24.35 kg/m?? Temperature Range: Temp: 36.9 ??C (98.5 ??F) Temp Av.9 ??C (98.5 ??F) Min: 36.8 ??C (98.3 ??F)Max: 37 ??C (98.6 ??F) General Appearance: Awake, alert, and in no apparent distress. On NC oxygen at her baseline of 3-4LNC Pulmonary/Chest: Clear to auscultation, without wheezes, rales, or rhonchi Cardiovascular: Regular rate and rhythm without murmurs, rubs, or gallops. Abdomen: Soft, nontender, nondistended. Extremities: Upper extremity swelling. Right arm erythema/bruise ESPERANZA PICC Neurologic: Bulk and tone are normal. No atrophy is noted. Skin: No rash or lesions. Laboratory data: I have independently reviewed the following labs: Results from last 7 days Lab Units 02/12/25 0438 02/11/25 0519 02/10/25 0518 WBC x10E9/L 6.1 6.6 5.1 HEMOGLOBIN g/dL 9.5* 10.2* 9.6* HEMATOCRIT % 29.9* 31.9* 30.5* MCV fL 92 92 91 PLATELETS X10E9/L 179 159 129* NEUTROS ABS MAN 10*3/uL 4.8 5.5 3.6 EOS ABS MAN 10*3/uL -- -- 0.1 Results from last 7 days Lab Units 02/12/25 0438 02/11/25 1503 02/11/25 0519 02/10/25 0518 SODIUM mmol/L 147* -- 146 145 POTASSIUM mmol/L 4.1 4.0 3.8 4.3 CHLORIDE mmol/L 94* -- 97* 98 CO2 mmol/L >45* -- >45* 45* BUN mg/dL 10 -- 12 10 CREATININE mg/dL 0.25* -- 0.28* 0.28* CALCIUM mg/dL 8.4* -- 8.3* 8.3* ALBUMIN g/dL 3.2 -- 3.4 3.2 ALK PHOS U/L 48 -- 49 46 ALT U/L 12 -- 12 13 AST U/L 12 -- 9 9 Invalid input(s): BILIRUBINU , BILIRUBINNU Imaging Studies: Cultures: Microbiology Results No results found for the last 168 hours. Medications: atorvastatin, 10 mg, oral, Daily azithromycin, 250 mg, oral, Once per day on Friday busPIRone, 10 mg, oral, Nightly DULoxetine, 80 mg, oral, Daily ferrous sulfate, 325 mg, oral, Q48H fluticasone furoate-vilanteroL, 1 puff, inhalation, Daily furosemide, 40 mg, oral, Daily gabapentin, 300 mg, oral, TID ipratropium-albuteroL, 3 mL, nebulization, TID liothyronine, 25 mcg, oral, Daily sennosides-docusate sodium, 2 tablet, oral, BID [COMPLETED] Consult PICC nurse - PICC, , , Once AND sodium chloride, 10 mL, intravenous, Q12H AND sodium chloride, 10 mL, intravenous, PRN AND sodium chloride, 20 mL, intravenous, PRN traZODone, 25 mg, oral, Nightly vancomycin, 1,000 mg, intravenous, Q12H warfarin, 3 mg, oral, Daily Thank you for allowing us to participate in the care of this patient. Please call with questions. ANGELICA Dill CNP 02/12/25 1338 * Nilay Amador PharmD - 02/12/2025 11:18 AM EDT Pharmacokinetic Consult - Follow Up Warfarin Dosing Minnie Cortez is a 64 y.o. female for whom pharmacy has been consulted for warfarin dosing and monitoring. Subjective Indication for treatment: Anticoag Therapy Indication: Cardiac dysrhythmia Goal INR: Target INR: 2 - 3 Current inpatient warfarin regimen: See below Current Hematologic Labs Results from last 7 days Lab Units 02/12/25 0438 02/11/25 0519 02/10/25 0518 02/09/25 0117 02/08/25 0202 02/07/25 0217 02/06/25 0201 INR 2.0* 2.1* 1.8* 2.3* 2.3* 2.2* 1.8* Warfarin Administrations (last 168 hours) Date/Time Action Medication Dose 02/11/25 1642 Given warfarin (COUMADIN) tablet 3 mg 3 mg 02/10/25 1546 Given warfarin (COUMADIN) tablet 3 mg 3 mg 02/09/25 1804 Given warfarin (COUMADIN) tablet 2.5 mg 2.5 mg 02/08/25 1503 Given warfarin (COUMADIN) tablet 2.5 mg 2.5 mg 02/07/25 1631 Given warfarin (COUMADIN) tablet 2.5 mg 2.5 mg Assessment INR currently: therapeutic Drug-drug interactions: azithromycin, duloxetine, liothyronine Drug-disease state interactions: n/a Other pertinent information: discharge at ~12 pm today Plan RX Anticoag Warfarin dose plan: would recommend continuing current warfarin regimen of 3 mg daily at SNF. Nilay Amador PharmD * Ramya Paige, SHEAR GRINDER OPERATOR-MASTER PILOT - 02/11/2025 5:22 PM EDT Images from the original note were not included. [facility] PALLIATIVE CARE PROGRESS NOTE Date of Service: 02/11/2025 Patient Name: Minnie Cortez : 1960 Subjective SUBJECTIVE CC: Assistance w/ complex medical decision making; Constipation HPI: 64 y.o. female admitted with pneumonia, bacteremia, and acute on chronic resp failure in the setting of end stage COPD/emphysema. Follow up today at the advisement of my attending to reassess sxburden and revisitation of code status. Discussed with nursing. Pt was resting in bed comfortably watching TV. She admits to intermittent panic attacks associated with dyspnea. This is aborted with atarax. Pt states that her chronic pain is well controlled on her home norco regimen. SOB is controlled. Denies NVD. No BM in 7 days. Senna-s 2 tabs BID was started yesterday. Good appetite/intake. Pt voices no concerns. No family at bedside. Social History: Healthcare surrogate is DPOA-HC Jason. Code status remains a full code. ROS: See HPI Allergies: Lyrica [pregabalin], Zonisamide, and Nickel Inpatient Medications: Current Facility-Administered Medications: acetaminophen (TYLENOL EXTRA STRENGTH) tablet 1,000 mg, 1,000 mg, oral, Q6H PRN, Moath H Elhady, DO, 1,000 mg at 02/08/25 0915 albuterol (PROVENTIL HFA;VENTOLIN HFA) inhaler 2 puff, 2 puff, inhalation, Q4H PRN, Sandro Peters MD atorvastatin (LIPITOR) tablet 10 mg, 10 mg, oral, Daily, Uli Orlando MD, 10 mg at 02/11/25 0832 azithromycin (ZITHROMAX) tablet 250 mg, 250 mg, oral, Once per day on Friday, Eliud Ledesma MD, 250 mg at 02/10/25 1246 busPIRone (BUSPAR) tablet 10 mg, 10 mg, oral, Nightly, Vanessa Mccarthy MD, 10 mg at 02/10/25 2154 calcium gluconate IVPB 1000 mg/50 mL (20 mg/mL premix), 1,000 mg, intravenous, PRN OR calcium gluconate IVPB 2000 mg/100 mL (20 mg/mL premix), 2,000 mg, intravenous, PRN OR calcium gluconate 3,000 mg in sodium chloride 0.9 % 100 mL IVPB, 3,000 mg, intravenous, PRN, Vanessa Mccarthy MD dextrose (GLUTOSE) 40 % gel 15 g, 15 g, oral, PRN, Vanessa Mccarthy MD dextrose 50 % in water (D50W) 50% solution 25 mL, 25 mL, intravenous, PRN, Vanessa Mccarthy MD DULoxetine (CYMBALTA) DR capsule 80 mg, 80 mg, oral, Daily, Uli Orlando MD, 80 mg at 02/11/25 0832 ferrous sulfate tablet 325 mg, 325 mg, oral, Q48H, Khang Moreland MD, 325 mg at 02/10/25 1355 fluticasone furoate-vilanteroL (BREO ELLIPTA) 200-25 mcg/dose inhaler 1 puff, 1 puff, inhalation, Daily, Yumiko Childers MD, 1 puff at 02/11/25 0846 gabapentin (NEURONTIN) capsule 300 mg, 300 mg, oral, TID, Uli Orlando MD, 300 mg at 02/11/25 1323 glucagon HCL injection 1 mg, 1 mg, intramuscular, PRN, Vanessa Mccarthy MD guaiFENesin (MUCINEX) tablet 600 mg, 600 mg, oral, Q12H PRN, Khang Moreland MD hydrALAZINE (APRESOLINE) injection 10 mg, 10 mg, intravenous, Q6H PRN, Claus Felix MD, 10 mg at 02/06/25 0350 HYDROcodone-acetaminophen (NORCO) 5-325 mg per tablet 1 tablet, 1 tablet, oral, Q6H PRN, Moath H Elalexdy, DO, 1 tablet at 02/11/25 1648 hydrOXYzine (ATARAX) tablet 25 mg, 25 mg, oral, 4x Daily PRN, Vanessa Mccarthy MD, 25 mg at 02/11/25 1443 ipratropium-albuteroL (DUONEB) 0.5 mg-3 mg(2.5 mg base)/3 mL nebulizer solution 3 mL, 3 mL, nebulization, TID, Sandro Peters MD, 3 mL at 02/11/25 1445 ipratropium-albuteroL (DUONEB) 0.5 mg-3 mg(2.5 mg base)/3 mL nebulizer solution 3 mL, 3 mL, nebulization, Q4H PRN, Sandro Peters MD liothyronine (CYTOMEL) tablet 25 mcg, 25 mcg, oral, Daily, Uli Orlando MD, 25 mcg at 02/11/25 0831 magnesium sulfate IVPB 2000 mg/50 mL in iso-osmotic water (40 mg/mL premix), 2,000 mg, intravenous,PRN, Stopped at 02/11/25 1040 OR magnesium sulfate IVPB 4000 mg/100 mL in iso-osmotic water (40mg/mL premix), 4,000 mg, intravenous, PRN, Vanessa Mccarthy MD potassium chloride (K-TAB,KLOR-CON) CR tablet 20-50 mEq, 20-50 mEq, oral, PRN, 30 mEq at 02/11/25 1115 OR potassium chloride (KAYCIEL) 20 mEq/15 mL solution 20-50 mEq, 20-50 mEq, oral, PRN, Vanessa Mccarthy MD, 30 mEq at 02/05/25 0348 potassium chloride IVPB 10 mEq/50 mL in water (0.2 mEq/mL premix), 10 mEq, intravenous, PRN, Stopped at 02/08/25 1007 OR potassium chloride IVPB 10 mEq/100 mL in water (0.1 mEq/mL premix), 10 mEq, intravenous, PRN, Vanessa Mccarthy MD sennosides-docusate sodium (SENOKOT-S) 8.6-50 mg 2 tablet, 2 tablet, oral, BID, Alejo Villalobos MD, 2 tablet at 02/11/25 0832 sodium phosphate 20 mmol in sodium chloride 0.9 % 250 mL IVPB, 20 mmol, intravenous, PRN OR sodium phosphate 20 mmol in sodium chloride 0.9 % 100 mL IVPB, 20 mmol, intravenous, PRN OR sod phos di, mono-K phos mono (K-PHOS NEUTRAL) 250 mg tablet 2 tablet, 2 tablet, oral, PRN, Vanessa Mccarthy MD, 2 tablet at 02/04/25 2253 [COMPLETED] Consult PICC nurse - PICC, , , Once AND sodium chloride 0.9 % flush 10 mL, 10 mL, intravenous, Q12H, 10 mL at 02/11/25 0832 AND sodium chloride 0.9 % flush 10 mL, 10 mL, intravenous, PRN AND sodium chloride 0.9 % flush 20 mL, 20 mL, intravenous, PRN, Moath H Vishal, sodium chloride 0.9 % infusion, 20 mL/hr, intravenous, Continuous PRN, Claus Felix MD traZODone (DESYREL) tablet 25 mg, 25 mg, oral, Nightly, Vanessa Mccarthy MD, 25 mg at 02/10/25 2155 vancomycin (VANCOCIN) 1,000 mg in sodium chloride 0.9 % 250 mL IVPB W/ADAPTER, 1,000 mg, intravenous, Q12H, Moath H Elkaty, DO, Stopped at 02/11/25 0648 warfarin (COUMADIN) tablet 3 mg, 3 mg, oral, Daily, Alejo Villalobos MD, 3 mg at 02/11/25 1642 Objective OBJECTIVE BP (!) 130/94 Pulse 70 Temp 37 ??C (98.6 ??F) (Oral) Resp 22 Ht 157.5 cm (5' 2.01 ) Wt 60.5 kg (133 lb 6.1 oz) SpO2 96% BMI 24.39 kg/m?? Intake/Output Summary (Last 24 hours) at 02/11/2025 1722 Last data filed at 02/11/2025 1633 Gross per 24 hour Intake 1945 ml Output 3150 ml Net -1205 ml Constitutional: Mildly anxious lying in mechanical bed. Appearing chronically ill and older than stated age. Frail appearing. PPS: 50% EOL Score: 9 Eyes: Anicteric sclera, normal lids, no discharge ENMT: Mucous membranes pink and dry CV: RRR, generalized edema Respiratory: No increased work of breathing. NC 3L. No retractions. MS: Mild sarcopenia Skin: No rashes on visible skin. Discoloration of toes Neuro: Grossly non focal, moving all extremities Psych: Mildly anxious affect, AOx4, not responding to internal stimuli In preparation for, or response to, today's visit I Reviewed today's CBC/BMP, Reviewed recent CXR, Reviewed recent progress notes, Reviewed consult notes, Discussed and coordinated care with nursing,and Obtained independent hx from nurse PALLIATIVE CARE DISCUSSION Sx burden on fair control. Recommend continuing the senna-s as ordered for another day before escalating. Did add prn dulcolax supp in the event pt becomes uncomfortable. Anxiety seems to respond to her current regimen. Did follow up on code status as advised by my attending. Pt has not spoken to her DPOA-HC Jason regarding the matter. She indicates that the decision is very difficult and for now she wishes to remain a full code. She will continue to review with her when she feels appropriate. Noted ongoing discharge planning. Will sign off for now. ASSESSMENT Severe COPD Encounter for palliative care Septic shock Bacteremia Pneumonia Paroxysmal afib Acute on chronic resp failure WILIAN Chronic back pain Anxiety disorder Dyspnea Constipation PLAN Code status to remain a full code per pt. Continue current bowel and sx management regimen. Added prn ducolax supp in the event she becomes uncomfortable. We will sign off for now. Thank you for the opportunity to participate in the care of this patient. The palliative care team will continue to follow. Please contact us if we can be of additional assistance [phone]. Electronically signed by: ANGELICA ALMAZAN Plan Level of MDM Diagnosis (1 of the following) Data Risk Straightfwd []Self-limited or minor problem []Minimal or none []Minimal risk from test/treatment Low []2+ self-limited or minor problems []1 stable chronic illness []1 acute, uncomplicated illness or injury []1 stable acute illness []1 acute uncomplicated illness or injury requiring hospitalization 1 of the following []Tests and documents [] Review of external notes []Review of results of each unique test []Ordering of each unique test [x]Assessment requiring independent historian []Low risk of morbidity from additional diagnostic testing or tx Moderate [x]1+ chronic illnesses w/ exacerbation, progression, or treatment SE []2 or more stable chronic illnesses []1 undiagnosed new problem []1 acute illness w/ systemic sx []1 acute illness w/ complicated injury 1 of the following []Tests, documents, independent historian (Any 3) [] Review of external notes []Review of results of each unique test []Ordering of each unique test []Assessment requiring independent historian []Discussion of management or test interpretation w/ external physician/QHP [x]Moderate risk of morbidity from additional diagnostic testing or tx [x]Rx drug management []Decision regarding minor surgery []Decision regarding elective major surgery []Dx or tx significantly limited by social determinants of health High []1+ chronic illnesses w/ severe exacerbation, progression, or treatment SE []1 acute or chronic illness or injury that poses a threat to life or bodily function 2 of the following []Tests, documents, independent historian (Any 3) [] Review of external notes []Review of results of each unique test []Ordering of each unique test []Assessment requiring independent historian []Discussion of management or test interpretation w/ external physician/QHP []High risk of morbidity from additional diagnostic testing or tx []Drug therapy requiring intensive monitoring of toxicity []Decision regarding elective major surgery or emergency major surgery []Decision regarding hospitalization or escalation of hospital level of care []Decision not to resuscitate or to de-escalate care because of poor prognosis, []Parenteral controlled substances [id number] ANGELICA Almazan 02/11/25 4386 * ANGELICA Lucas - 02/11/2025 12:58 PM EDT Images from the original note were not included. Infectious Diseases Academic Team - Progress Note - Please contact us via [employer] chat. After hours, call [phone] Patient name: Minnie Cortez Patient Today's Date and Time: 02/11/2025, 12:58 PM Admission Date: 02/04/2025 Primary Care Physician: HOUSTON BROWN MD Impression and Recommendations: CoNS Bacteremia, Staph hominis PAF with RVR, s/p PPM (01/28/2025) Pt recently had a dual chamber pacemaker placed 01/28/2025 for PAF with RVR Blood cultures 02/04/2025 with CoNS, identified as Staph hominis in 2/2 bottles TTE was negative for valve vegetations Blood cultures cleared rapidly as of 02/05/2025 We are recommending IV Vanco x2 weeks of therapy (EOT 02/18/2025) followed by surveillance blood cultures at 2 and 4 weeks post antibiotic completion (03/04/2025 and 03/18/2025 respectively) Follow up a week after discharge Monitor CBC, BMP, and vanco levels weekly - OPAT done and orders placed Prescription put in chart for Vancomycin. Pharmacy note reviewed, keep vanco dose the same at 1000 mg every 12 hours. Acute/Chronic Hypoxic Respiratory Failure COPD, on 3L per NC at baseline Pt's O2 needs are near baseline On Azithromycin 3x weekly Subjective Interval History: Pt was seen and examined at bedside, chart/labs/diagnostics reviewed. Follow up for bacteremia on vancomycin. She had no issues overnight. Tolerating oral intake. Right IJ TLC removed. No vancomycin side effects. She is stable on vancomyicn 1000mg every 12 hours. Reviewed pharamcy note and need to change dosing. Objective Physical Examination : BP 134/90 Pulse 70 Temp 36.8 ??C (98.3 ??F) (Oral) Resp 22 Ht 157.5 cm (5' 2.01 ) Wt 60.5kg (133 lb 6.1 oz) SpO2 96% BMI 24.39 kg/m?? Temperature Range: Temp: 36.8 ??C (98.3 ??F) Temp Av.8 ??C (98.2 ??F) Min: 36.6 ??C (97.9 ??F)Max: 37.1 ??C (98.8 ??F) General Appearance: Awake, alert, and in no apparent distress. On NC oxygen at her baseline of 3-4LNC Pulmonary/Chest: Clear to auscultation, without wheezes, rales, or rhonchi Cardiovascular: Regular rate and rhythm without murmurs, rubs, or gallops. Abdomen: Soft, nontender, nondistended. Extremities: Upper extremity swelling. ESPERANZA PICC Neurologic: Bulk and tone are normal. No atrophy is noted. Skin: No rash or lesions. Laboratory data: I have independently reviewed the following labs: Results from last 7 days Lab Units 02/11/25 0502/10/25 0518 02/09/25 0117 WBC x10E9/L 6.6 5.1 5.1 HEMOGLOBIN g/dL 10.2* 9.6* 9.5* HEMATOCRIT % 31.9* 30.5* 29.8* MCV fL 92 91 90 PLATELETS X10E9/L 159 129* 129* NEUTROS ABS MAN 10*3/uL 5.5 3.6 4.4 EOS ABS MAN 10*3/uL -- 0.1 -- Results from last 7 days Lab Units 02/11/25 0519 02/10/25 0518 02/09/25 0117 SODIUM mmol/L 146 145 145 POTASSIUM mmol/L 3.8 4.3 4.3 CHLORIDE mmol/L 97* 98 100 CO2 mmol/L >45* 45* 42* BUN mg/dL 12 10 13 CREATININE mg/dL 0.28* 0.28* 0.39* CALCIUM mg/dL 8.3* 8.3* 8.3* ALBUMIN g/dL 3.4 3.2 3.5 ALK PHOS U/L 49 46 46 ALT U/L 12 13 14 AST U/L 9 9 12 Invalid input(s): BILIRUBINU , BILIRUBINNU Echo complete W/O contrast Result Date: 02/08/2025 Left Ventricle: Left ventricle appears normal in size. There is mild increased wall thickness/hypertrophy. Systolic function is normal with an ejection fraction of 65-70%. Unable to assess diastolic function due to atrial fibrillation/flutter. Tricuspid Valve: There is moderate regurgitation. RVSP c alculated at 50 mmHg. RVSP is based on RA pressure of 8 mmHg. Right Ventricle: Systolic function isnormal. Normal tricuspid annular plane systolic excursion. A pacer wire is present in the right ventricle. Aorta: The aortic root is normal in size. Pericardium: There is no pericardial effusion. Echo limited W/O contrast Result Date: 01/25/2025 Left Ventricle: Left ventricle is small. There is moderate increased wall thickness/hypertrophy. Systolic function is normal with an ejection fraction of 60-65%. Imaging Studies: Cultures: Microbiology Results Procedure Component Value Units Date/Time Blood culture #1 [[id number]] Collected: 02/05/25 1231 Specimen: Blood, Venous Updated: 02/10/25 1401 CULTURE RESULTS NO GROWTH 5 DAYS Blood culture #2 [[id number]] Collected: 02/05/25 1231 Specimen: Blood, Venous Updated: 02/10/25 1401 CULTURE RESULTS NO GROWTH 5 DAYS Blood culture #1 [[id number]] (Abnormal) (Susceptibility) Collected: 02/04/25 1335 Specimen: Blood, Venous Updated: 02/07/25 0749 CULTURE RESULTS Staphylococcus hominis GRAM STAIN Gram positive cocci in clusters Narrative: Suboptimal volume of blood collected, Results may be affected. Susceptibility Staphylococcus hominis Not Specified Cefazolin Resistant (deduced) Clindamycin >=4.0 Resistant Doxycycline 4.0 Susceptible Oxacillin >=4.0 Resistant Trimethoprim + Sulfamethoxazole 4.0 Resistant Vancomycin 2.0 Susceptible Blood culture #2 [[id number]] (Abnormal) (Susceptibility) Collected: 02/04/25 1335 Specimen: Blood, Venous Updated: 02/07/25 0750 CULTURE RESULTS Staphylococcus hominis GRAM STAIN Gram positive cocci in clusters Narrative: Suboptimal volume of blood collected, Results may be affected. Susceptibility Staphylococcus hominis Not Specified Cefazolin Resistant (deduced) Clindamycin >=4.0 Resistant Doxycycline 4.0 Susceptible Oxacillin >=4.0 Resistant Trimethoprim + Sulfamethoxazole 4.0 Resistant Vancomycin 2.0 Susceptible BLOOD CULTURE IDENTIFICATION PANEL [[id number]] (Abnormal) Collected: 02/04/25 1335 Specimen: Blood, Venous Updated: 02/05/25 1049 Staphylococcus species PCR Detected Medications: atorvastatin, 10 mg, oral, Daily azithromycin, 250 mg, oral, Once per day on Friday busPIRone, 10 mg, oral, Nightly DULoxetine, 80 mg, oral, Daily ferrous sulfate, 325 mg, oral, Q48H fluticasone furoate-vilanteroL, 1 puff, inhalation, Daily gabapentin, 300 mg, oral, TID ipratropium-albuteroL, 3 mL, nebulization, TID liothyronine, 25 mcg, oral, Daily sennosides-docusate sodium, 2 tablet, oral, BID [COMPLETED] Consult PICC nurse - PICC, , , Once AND sodium chloride, 10 mL, intravenous, Q12H AND sodium chloride, 10 mL, intravenous, PRN AND sodium chloride, 20 mL, intravenous, PRN traZODone, 25 mg, oral, Nightly vancomycin, 1,000 mg, intravenous, Q12H warfarin, 3 mg, oral, Daily Thank you for allowing us to participate in the care of this patient. Please call with questions. ANGELICA Dill CNP 02/11/25 1302 * Khang Moreland MD - 02/11/2025 10:53 AM EDT Images from the original note were not included. DAILY PROGRESS NOTE IMS-3 This is a progress note for Minnie Cortez, a 64 y.o. who has been admitted for 7 midnights DATE OF ADMISSION 02/04/2025 10:58 AM HPI/HOSPITAL COURSE: Subjective Minnie Cortez is a 64 y.o. female with a PMH significant for chronic hypercarbic respiratory failure secondary to COPD on 3L O2 (baseline CO2: 60), WILIAN, and paroxysmal A-Fib on Warfarin s/p prior DCCV, CTI RFA ablation with dual-chamber pacemaker placement on previous admission one week ago. Patient was recently hospitalized at [facility] from 02/03 01/30 due to Afib with RVR, and situation was C/B intubation sedation in the ICU due to altered mentation and removing BiPAP machine from progressive unit. Patient was extubated after a couple of days, and had AV node RFA with dual chamber pacemaker placement by electrophysiology and recommended to continue flecainide and metoprolol if converted back to AFib with RVR. Patient was discharged on therapeutic range Coumadin INR 2.8, and was sent toSNF near [place]. Very little information was received from handoff from [facility], however patient was found unresponsive at SNF and had a GCS score of [address] to [address] hospital and decreased to 6 which required intubation for protection of airway. Patient was then transferred back to [facility] ICU for concern of decompensation. CT brain without contrast and CT chest abdomen and pelvis with contrast weredone at [place], and only remarkable finding was pleural effusion b/l With [id number]-left, and some anasarca in the abdomen. [employer] interrogation of AICD showed no event occurred any time during this morning or afternoon. Electrophysiology was consulted for evaluation as patient is telemet ry showed concerns for NSVT. No further information was known, and patient was intubated and sedated upon arrival. Moving all 4 extremities spontaneously. 02/05/2025: Patient was extubated. Failed swallow bedside swallow test. Warfarin subtherapeutic; initiated on heparin. 02/07: BCx x2 Staphylococcus hominis, continue vancomycin and can discontinue Zosyn per ID. Weaning off Precedex and restarted all anti anxiolytic medications trazodone, Atarax, BuSpar. Started warfarin in the afternoon. 02/09: PICC line order placed, antibiotics for vancomycin IV 2 weeks per ID, we will require BCx x2 2 and 4 weeks after completion of antibiotic course. INTERVAL HISTORY: The patient was examined at bedside. Patient is at 3 L NC, her baseline. Patient denies shortness of breath, difficulty breathing, chest pain, and heart palpitation. Patient endorses improvement in upper extremity tremors and stated that it comes and goes. Patient is aware of discharge to SNF. Objective Vital Signs: Patient Vitals for the past 24 hrs: BP Temp Temp src Pulse Resp SpO2 Weight 02/11/25 0903 -- -- -- 70 22 100 % -- 02/11/25 0725 141/77 37.1 ??C (98.8 ??F) Oral 70 22 100 % -- 02/11/25 0548 (!) 140/91 36.6 ??C (97.9 ??F) Oral 70 20 98 % 60.5 kg (133 lb 6.1 oz) 02/10/25 2331 130/63 36.9 ??C (98.5 ??F) Oral 70 20 100 % -- 02/10/252123 -- -- -- 70 -- -- -- 02/10/252113 -- -- -- 70 -- 97 % -- 02/10/252104 -- -- -- 70 -- 97 % -- 02/10/25 1958 125/65 36.7 ??C (98.1 ??F) Oral 70 20 97 % -- 02/10/25 1833 -- -- -- 70 -- 97 % -- 02/10/25 1608 125/70 36.6 ??C (97.9 ??F) Oral 69 20 96 % -- 02/10/25 1427 -- -- -- 70 24 97 % -- 02/10/25 1418 -- -- -- 69 24 93 % -- 02/10/25 1320 110/86 -- -- -- -- -- -- 02/10/25 1300 (!) 132/101 36.7 ??C (98.1 ??F) Oral 70 18 96 % -- Weight: Admission weight: 57.2 kg (126 lb 1.7 oz) Wt Readings from Last 3 Encounters: 02/11/25 60.5 kg (133 lb 6.1 oz) 01/30/25 57.2 kg (126 lb 1.7 oz) 01/14/25 59 kg (130 lb 1.1 oz) Input/Output: Intake/Output Summary (Last 24 hours) at 02/11/2025 1053 Last data filed at 02/11/2025 1000 Gross per 24 hour Intake 1823.01 ml Output 2550 ml Net -726.99 ml Labs: Results from last 7 days Lab Units 02/11/25 0519 02/10/25 0518 02/09/25 0117 WBC x10E9/L 6.6 5.1 5.1 HEMOGLOBIN g/dL 10.2* 9.6* 9.5* HEMATOCRIT % 31.9* 30.5* 29.8* PLATELETS X10E9/L 159 129* 129* Results from last 7 days Lab Units 02/11/25 0502/10/25 0518 02/09/25 0117 02/07/25 0217 02/06/25 0201 APTT sec -- -- -- -- 26 INR 2.1* 1.8* 2.3* < > 1.8* < > = values in this interval not displayed. Results from last 7 days Lab Units 02/11/2551802/10/2551702/09/25 0117 SODIUM mmol/L 146 145 145 POTASSIUM mmol/L 3.8 4.3 4.3 CHLORIDE mmol/L 97* 98 100 CO2 mmol/L >45* 45* 42* BUN mg/dL 12 10 13 CREATININE mg/dL 0.28* 0.28* 0.39* CALCIUM mg/dL 8.3* 8.3* 8.3* PHOSPHORUS mg/dL 2.6 2.5 2.8 MAGNESIUM mg/dL 1.8 1.9 2.0 Results from last 7 days Lab Units 02/11/2551802/10/25 0518 02/09/25 0117 ALBUMIN g/dL 3.4 3.2 3.5 PROTEIN TOTAL g/dL 5.1* 4.9* 5.3* ALT U/L 12 13 14 AST U/L 9 9 12 ALK PHOS U/L 49 46 46 Results from last 7 days Lab Units 02/11/2551802/10/25 0518 02/09/25 0117 GLUCOSE mg/dL 194* 87 148* Lab Results Component Value Date HGBA1C 4.8 02/04/2025 Results from last 7 days Lab Units 02/05/25 1011 02/04/25 1755 02/04/25 1208 TROPONIN I HS ng/L -- 81* 96* BNP pg/mL 169* -- 302* Invalid input(s): ABGOXYGENSOUE Results from last 7 days Lab Units 02/04/25 1208 VITAMIN B 12 pg/mL 200 FOLATE ng/mL 12.0 FERRITIN ng/mL 90 IRON ug/dL 34* IRON BINDING CAPACITY ug/dL 301 IRON SATURATION % SATURATION 11* Lab Results Component Value Date SPECIFICGRA 1.032 02/04/2025 LEUKOCYTE Negative 02/04/2025 UROBILINOGEN <1.1 eu/dL 02/04/2025 Imaging: X-ray chest 1 view Result Date: 02/10/2025 XR CHEST 1 VW HISTORY: Hypoxia COMPARISON: 02/09/2025. CT chest 02/04/2025 FINDINGS: AP portable upright radiograph obtained. Right-sided PICC line terminates in the SVC. Stable appearance of cardiac pacing device and spinal cord stimulator leads. Emphysematous changes. Small right pleural effusion is mildly improved. Similar appearance of mildly prominent interstitial markings compatible with mildpulmonary edema or chronic interstitial lung disease. IMPRESSION: * Mildly improved small right pleural effusion. * Otherwise no significant interval change. Approved by Jody Mohamud DO on 02/10/2025 9:26 AM I, Manuel Fung MD have personally reviewed the image(s) and agree with and/or edited the report Finalized by Manuel Fung MD on 02/10/2025 11:23 AM X-ray chest 1 view Result Date: 02/09/2025 PROCEDURE: Single AP view of the chest. INDICATION: PICC ADJUSTED, CONFIRM NEW PLACEMENT . COMPARISON: Serial chest radiographs most recently dated earlier today at 1:02 PM. FINDINGS: Support lines,tubes, devices, surgical hardware, material: Left chest wall AICD/pacemaker with leads overlying the right atrium and right ventricle. Spinal nerve stimulator. Interval repositioning of right- sided PICC with tip overlying the cavoatrial junction. Lungs and Pleura: See Impression. No pneumothorax. Small layering right pleural effusion. Trace left pleural effusion. Cardiovascular and Mediastinum: The cardiomediastinal silhouette appears grossly stable noting a calcified tortuous aorta. IMPRESSION: 1. Interval repositioning of right-sided PICC with tip overlying the cavoatrial junction. 2. Similar mild interstitial edema and small right pleural effusion. 3. Trace left pleural effusion. 4. Emphysema.. Finalized by Kaci Rodriguez MD on 02/09/2025 3:31 PM X-ray chest 1 view Result Date: 02/09/2025 EXAM: XR CHEST 1 VW CLINICAL INFORMATION: picc placement. COMPARISON: 02/05/2025 FINDINGS: There is a right approach PICC. The tip terminates over the right apex in the right brachiocephalic vein. Stable mild interstitial edema with trace pleural effusions. There is mild right basilar atelectasis. Stable cardiomediastinal silhouette. The endotracheal tube, gastric tube, and right IJ central venouscatheter has been removed in the interval. Stable left chest wall pacemaker and leads. IMPRESSION: 1. Right approach PICC with the tip terminating over the right apex in the brachiocephalic vein. 2. Interval removal of the endotracheal tube, gastric tube, and right IJ central venous catheter. Thereis no evidence for a pneumothorax or shift of the mediastinal structures. 3. Mild interstitial edema with trace pleural effusions and mild right basilar atelectasis. Finalized byDaniel Moreland MD on 02/09/2025 1:21 PM Ultrasound chest left Result Date: 02/08/2025 CLINICAL INFORMATION: Pain and swelling. COMPARISON: None. Findings: Ultrasound scanning in the left chest performed. There is a complex fluid collection measuring 6.6 x 6.2 x 2.0 cm. No internal Doppler flow. The proximity of this abnormality to the patient's pacemaker is difficult to assess may be adjacent to this region. IMPRESSION: Complex fluid collection likely involuting hematoma, other etiologies could include abscess. Follow-up recommended to document resolution. Finalized by Jace Glover MD on 02/08/2025 2:39 PM Echo complete W/O contrast Result Date: 02/08/2025 Left Ventricle: Left ventricle appears normal in size. There is mild increased wall thickness/hypertrophy. Systolic function is normal with an ejection fraction of 65-70%. Unable to assess diastolic function due to atrial fibrillation/flutter. Tricuspid Valve: There is moderate regurgitation. RVSP c alculated at 50 mmHg. RVSP is based on RA pressure of 8 mmHg. Right Ventricle: Systolic function isnormal. Normal tricuspid annular plane systolic excursion. A pacer wire is present in the right ventricle. Aorta: The aortic root is normal in size. Pericardium: There is no pericardial effusion. Cultures: Microbiology Results Procedure Component Value Units Date/Time Blood culture #1 [[id number]] Collected: 02/05/25 1231 Specimen: Blood, Venous Updated: 02/10/25 1401 CULTURE RESULTS NO GROWTH 5 DAYS Blood culture #2 [[id number]] Collected: 02/05/25 1231 Specimen: Blood, Venous Updated: 02/10/25 1401 CULTURE RESULTS NO GROWTH 5 DAYS Blood culture #1 [[id number]] (Abnormal) (Susceptibility) Collected: 02/04/25 1335 Specimen: Blood, Venous Updated: 02/07/25 0749 CULTURE RESULTS Staphylococcus hominis GRAM STAIN Gram positive cocci in clusters Narrative: Suboptimal volume of blood collected, Results may be affected. Susceptibility Staphylococcus hominis Not Specified Cefazolin Resistant (deduced) Clindamycin >=4.0 Resistant Doxycycline 4.0 Susceptible Oxacillin >=4.0 Resistant Trimethoprim + Sulfamethoxazole 4.0 Resistant Vancomycin 2.0 Susceptible Blood culture #2 [[id number]] (Abnormal) (Susceptibility) Collected: 02/04/25 1335 Specimen: Blood, Venous Updated: 02/07/25 0750 CULTURE RESULTS Staphylococcus hominis GRAM STAIN Gram positive cocci in clusters Narrative: Suboptimal volume of blood collected, Results may be affected. Susceptibility Staphylococcus hominis Not Specified Cefazolin Resistant (deduced) Clindamycin >=4.0 Resistant Doxycycline 4.0 Susceptible Oxacillin >=4.0 Resistant Trimethoprim + Sulfamethoxazole 4.0 Resistant Vancomycin 2.0 Susceptible BLOOD CULTURE IDENTIFICATION PANEL [[id number]] (Abnormal) Collected: 02/04/25 1335 Specimen: Blood, Venous Updated: 02/05/25 1049 Staphylococcus species PCR Detected Lower resp/sputum culture inc gram stain: Patient acquired [[id number]] (Abnormal) Collected: 02/04/25 1147 Specimen: Aspirate from Bronchus Updated: 02/06/25 1355 CULTURE RESULTS Few Mackenzie albicans Rare Non-lactose fermenting gram negative bacilli GRAM STAIN >25 White Blood Cells/LPF 1 to 9 Squamous Epithelial Cells/LPF 0 Ciliated Epithelial Cells/LPF Moderate Gram positive cocci in pairs, chains and clusters Few Gram negative bacilli Few Yeast Narrative: Along with Many Normal Respiratory Teresita. Mrsa Pcr nasal swab [[id number]] (Normal) Collected: 02/04/25 1147 Specimen: Swab from Nostril Updated: 02/04/25 1318 MRSA PCR NASAL Negative Resp Pathogens Panel/SARS CoV-2 [[id number]] (Normal) Collected: 02/04/25 1147 Specimen: Swab from Nasopharynx Updated: 02/04/25 1256 SARS COV 2 BY PCR Not Detected ADENOVIRUS Not Detected CORONAVIRUS 229E Not Detected CORONAVIRUS HKU1 Not Detected CORONAVIRUS NL63 Not Detected CORONAVIRUS OC43 Not Detected HUMAN METAPNEUVIRUS Not Detected RHINO/ENTEROVIRUS Not Detected INFLUENZA A Not Detected INFLUENZA B Not Detected PARAINFLUENZA 1 Not Detected PARAINFLUENZA 2 Not Detected PARAINFLUENZA 3 Not Detected PARAINFLUENZA 4 Not Detected RESP SYNCYTIAL VIRUS Not Detected BORD PARAPERTUSSIS Not Detected BORDETELLA PERTUSSIS Not Detected CHLAM.PNEUMONIAE Not Detected MYCOPLASMA PNEUMONIAE Not Detected Narrative: The [employer] Respiratory Panel 2.1 (RP2.1) is a multiplexed nucleic acid test intended for the simultaneous qualitative detection and differentiation of nucleic acid from multiple viral and bacterial respiratory organisms, including nucleic acid from Severe Acute Respiratory Syndrome Coronavirus 2 (SARS-CoV-2), in nasopharyngeal swabs obtained from individuals suspected of COVID-19 by their healthcare provider. Testing is limited to laboratories certified under the Clinical Laboratory Improvement Amendments of 1988 (CLIA), to perform high complexity or moderate complexity tests. SARS-CoV-2 RNA and nucleic acids from the other respiratory viral and bacterial organisms identified by this test are generally detectable in nasopharyngeal swabs during the acute phase of infection.The detection and identification of specific viral and bacterial nucleic acids from individuals exhibiting signs and/or symptoms of respiratory infection is indicative of the presence of the identified microorganism and aids in the diagnosis of respiratory infection if used in conjunction with other clinical and epidemiological information. Positive results are indicative of the presence of the identified organism, but do not rule out co-infection with other pathogens. The agent(s) detected by the [employer] RP2.1 may not be the definite cause of disease and clinical correlation with patient history and other diagnostic information is necessary to determine patient infection status. Negative results in the setting of a respiratory illness may be due to infection with pathogens notdetected by this test, or lower respiratory tract infection that may not be detected by a nasopharyngeal specimen. Negative results do not preclude SARS-CoV-2 infection and should not be used as the sole basis for patient management decisions. Negative RADHA-CoV-2 results must be combined with clinical observations, patient history and epidemiological information. Negative results for other organisms identified by the test may require additional laboratory testing when evaluating a patient with possible respiratory tract infection. Urine Culture Urine, Indwelling Catheter [[id number]] (Abnormal) Collected: 02/04/25 1143 Specimen: Urine, Indwelling Catheter Updated: 02/06/25 1152 CULTURE RESULTS 10,000-50,000 CFU/mL Mackenzie albicans Hospital Medications: Scheduled: atorvastatin, 10 mg, oral, Daily azithromycin, 250 mg, oral, Once per day on Friday busPIRone, 10 mg, oral, Nightly DULoxetine, 80 mg, oral, Daily ferrous sulfate, 325 mg, oral, Q48H fluticasone furoate-vilanteroL, 1 puff, inhalation, Daily furosemide, 40 mg, intravenous, Once gabapentin, 300 mg, oral, TID ipratropium-albuteroL, 3 mL, nebulization, TID liothyronine, 25 mcg, oral, Daily sennosides-docusate sodium, 2 tablet, oral, BID [COMPLETED] Consult PICC nurse - PICC, , , Once AND sodium chloride, 10 mL, intravenous, Q12H AND sodium chloride, 10 mL, intravenous, PRN AND sodium chloride, 20 mL, intravenous, PRN traZODone, 25 mg, oral, Nightly vancomycin, 1,000 mg, intravenous, Q12H warfarin, 3 mg, oral, Daily Infusions: sodium chloride 0.9 %, 20 mL/hr As Needed: acetaminophen albuterol calcium gluconate OR calcium gluconate OR calcium gluconate dextrose dextrose 50 % in water (D50W) glucagon (human recombinant) guaiFENesin hydrALAZINE HYDROcodone-acetaminophen hydrOXYzine ipratropium-albuteroL magnesium sulfate OR magnesium sulfate potassium chloride OR potassium chloride potassium chloride in water OR potassium chloride in water sodium phosphate IV OR sodium phosphate IV - central line OR sod phos di, mono-K phos mono [COMPLETED] Consult PICC nurse - PICC AND sodium chloride AND sodium chloride AND sodium chloride sodium chloride 0.9 % Allergies: Allergies Allergen Reactions Lyrica [Pregabalin] Zonisamide Swelling Trouble breathing, tongue swells Nickel Rash Physical Exam Constitutional: General: She is not in acute distress. Appearance: She is ill-appearing. Eyes: General: Right eye: No discharge. Left eye: No discharge. Cardiovascular: Rate and Rhythm: Normal rate. Pulmonary: Effort: No respiratory distress. Breath sounds: No wheezing. Comments: On 3 L NC at baseline Abdominal: General: There is no distension. Tenderness: There is no abdominal tenderness. There is no guarding or rebound. Musculoskeletal: General: No tenderness. Right lower leg: No edema. Left lower leg: No edema. Skin: General: Skin is warm. Coloration: Skin is not jaundiced. Findings: Bruising (Around pacemaker site on left upper chest) present. Neurological: General: No focal deficit present. Mental Status: She is alert. Comments: Tremors in upper extremities, improving ASSESSMENT & PLAN: Minnie Cortez is a 64 y.o. female who presents with unresponsive at the SNF. 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 Repeat blood cultures NGTD. Continue IV vancomycin. EOT 02/18/2025. Discontinued Toprol and flecainide per EP. Resumed Coumadin with INR goal 2-3 DC plan: Id OP one-week upon DC. Weekly CBC, BNP, and vanco levels. Plan: Give additional IV Lasix and monitor electrolytes and oxygen requirement. Swallow studies and speech therapy recommendation Continue IV vancomycin EOT 02/18/2025 Continue BiPAP nightly Plan for DC to SNF once authorization approves Acute on chronic hypoxic respiratory failure, intubated, improved to 3 L NC at baseline Severe COPD on 3 L NC at baseline - in acute exacerbation, improved WILIAN on BiPAP nightly Continue home azithromycin 3 times weekly Completed 5 day course of steroids for COPD exacerbation Continue DuoNeb and Breo Ellipta Continue Lasix home dose 20 mg oral Give additional IV Lasix 40 mg. Continue BMP. Pulmonology consulted; appreciate recommendations Normocytic anemia, likely KRISTAN Continue ferrous sulfate tablets every other day Chronic Issues: Hypothyroidism - unable to resume levothyroxine in due to duloxetine drug interaction. Hyperlipidemia on Lipitor Chronic Tremors - worked up by Neurology in previous admission. Likely drug- induced tremors (gabapentin, Cymbalta, beta agonist) and likely exacerbated by acute on chronic hypercapnia from COPD. Gabapentin was reduced to 100 mg t.i.d. Recommended outpatient [facility] up in [facility]. Chronic back pain on chronic opiate use Anxiety disorder, unspecified - Continue home Cymbalta, BuSpar, duloxetine, trazodone, gabapentin DVT prophylaxis: Coumadin for atrial fibrillation Diet: Adult diet Regular Texture; Level 2 Mildly Thick Fluids: PO, prn Disposition: SNF Code Status: Full Code The patient was seen and discussed with attending Dr. Sha Garcia MD. See attending attestation for additional details. This note was created with the assistance of a speech-recognition program. Every effort was made toensure accuracy; however, inadvertent computerized dub room engineer errors may be present. Khang Moreland MD Internal Medicine Resident, [facility] 02/11/25 10:53 AM Cosigned by Sha Garcia MD at 02/11/2025 5:39 PM EDT Associated attestation - Sha Garcia MD - 02/11/2025 5:39 PM EDT I have seen and discussed the patient during rounds. I performed and participated in the critical/gamez portions of the service. I was directly involved in the management and treatment plan of the patient. I reviewed the resident's note and agree with the findings and plan. Sha Garcia MD [employer] Hospitalist Clinical assistant professor of chemistry in the Department of Internal Medicine , [facility] * Yessi Tripp, [facility] - 02/11/2025 9:01 AM EDT Images from the original note were not included. Pharmacokinetic Consult - Vancomycin Dosing Minnie Cortez is a 64 y.o. female for whom pharmacy has been consulted for vancomycin dosing for bacteremia. Today is day 8 of vancomycin therapy. Relevant clinical data and objective history reviewed: Allergies: Lyrica [pregabalin], Zonisamide, and Nickel Results from last 3 days Lab Units 02/11/25 0519 02/10/25 0518 02/09/25 0117 CREATININE mg/dL 0.28* 0.28* 0.39* BUN mg/dL 12 10 13 WBC x10E9/L 6.6 5.1 5.1 HEMOGLOBIN g/dL 10.2* 9.6* 9.5* HEMATOCRIT % 31.9* 30.5* 29.8* MCV fL 92 91 90 Temp Readings from Last 3 Encounters: 02/11/25 37.1 ??C (98.8 ??F) (Oral) 01/30/25 36.9 ??C (98.4 ??F) (Oral) 01/14/25 36.4 ??C (97.5 ??F) (Oral) Renal Parameters: I/O last 3 completed shifts: In: 1763 [P.O.:1265; IV Piggyback:498] Out: 3400 [Urine:3400] Calculated CrCl (TBW): 158.4 ml/min Culture Data: Microbiology Results Procedure Component Value Units Date/Time Blood culture #1 [[id number]] Collected: 02/05/25 1231 Specimen: Blood, Venous Updated: 02/10/25 1401 CULTURE RESULTS NO GROWTH 5 DAYS Blood culture #2 [[id number]] Collected: 02/05/25 1231 Specimen: Blood, Venous Updated: 02/10/25 1401 CULTURE RESULTS NO GROWTH 5 DAYS Blood culture #1 [[id number]] (Abnormal) (Susceptibility) Collected: 02/04/25 1335 Specimen: Blood, Venous Updated: 02/07/25 0749 CULTURE RESULTS Staphylococcus hominis GRAM STAIN Gram positive cocci in clusters Narrative: Suboptimal volume of blood collected, Results may be affected. Susceptibility Staphylococcus hominis Not Specified Cefazolin Resistant (deduced) Clindamycin >=4.0 Resistant Doxycycline 4.0 Susceptible Oxacillin >=4.0 Resistant Trimethoprim + Sulfamethoxazole 4.0 Resistant Vancomycin 2.0 Susceptible Blood culture #2 [[id number]] (Abnormal) (Susceptibility) Collected: 02/04/25 1335 Specimen: Blood, Venous Updated: 02/07/25 0750 CULTURE RESULTS Staphylococcus hominis GRAM STAIN Gram positive cocci in clusters Narrative: Suboptimal volume of blood collected, Results may be affected. Susceptibility Staphylococcus hominis Not Specified Cefazolin Resistant (deduced) Clindamycin >=4.0 Resistant Doxycycline 4.0 Susceptible Oxacillin >=4.0 Resistant Trimethoprim + Sulfamethoxazole 4.0 Resistant Vancomycin 2.0 Susceptible BLOOD CULTURE IDENTIFICATION PANEL [[id number]] (Abnormal) Collected: 02/04/25 1335 Specimen: Blood, Venous Updated: 02/05/25 1049 Staphylococcus species PCR Detected Lower resp/sputum culture inc gram stain: Patient acquired [[id number]] (Abnormal) Collected: 02/04/25 1147 Specimen: Aspirate from Bronchus Updated: 02/06/25 1355 CULTURE RESULTS Few Mackenzie albicans Rare Non-lactose fermenting gram negative bacilli GRAM STAIN >25 White Blood Cells/LPF 1 to 9 Squamous Epithelial Cells/LPF 0 Ciliated Epithelial Cells/LPF Moderate Gram positive cocci in pairs, chains and clusters Few Gram negative bacilli Few Yeast Narrative: Along with Many Normal Respiratory Teresita. Mrsa Pcr nasal swab [[id number]] (Normal) Collected: 02/04/25 1147 Specimen: Swab from Nostril Updated: 02/04/25 1318 MRSA PCR NASAL Negative Resp Pathogens Panel/SARS CoV-2 [[id number]] (Normal) Collected: 02/04/25 1147 Specimen: Swab from Nasopharynx Updated: 02/04/25 1256 SARS COV 2 BY PCR Not Detected ADENOVIRUS Not Detected CORONAVIRUS 229E Not Detected CORONAVIRUS HKU1 Not Detected CORONAVIRUS NL63 Not Detected CORONAVIRUS OC43 Not Detected HUMAN METAPNEUVIRUS Not Detected RHINO/ENTEROVIRUS Not Detected INFLUENZA A Not Detected INFLUENZA B Not Detected PARAINFLUENZA 1 Not Detected PARAINFLUENZA 2 Not Detected PARAINFLUENZA 3 Not Detected PARAINFLUENZA 4 Not Detected RESP SYNCYTIAL VIRUS Not Detected BORD PARAPERTUSSIS Not Detected BORDETELLA PERTUSSIS Not Detected CHLAM.PNEUMONIAE Not Detected MYCOPLASMA PNEUMONIAE Not Detected Narrative: The [employer] Respiratory Panel 2.1 (RP2.1) is a multiplexed nucleic acid test intended for the simultaneous qualitative detection and differentiation of nucleic acid from multiple viral and bacterial respiratory organisms, including nucleic acid from Severe Acute Respiratory Syndrome Coronavirus 2 (SARS-CoV-2), in nasopharyngeal swabs obtained from individuals suspected of COVID-19 by their healthcare provider. Testing is limited to laboratories certified under the Clinical Laboratory Improvement Amendments of 1988 (CLIA), to perform high complexity or moderate complexity tests. SARS-CoV-2 RNA and nucleic acids from the other respiratory viral and bacterial organisms identified by this test are generally detectable in nasopharyngeal swabs during the acute phase of infection.The detection and identification of specific viral and bacterial nucleic acids from individuals exhibiting signs and/or symptoms of respiratory infection is indicative of the presence of the identified microorganism and aids in the diagnosis of respiratory infection if used in conjunction with other clinical and epidemiological information. Positive results are indicative of the presence of the identified organism, but do not rule out co-infection with other pathogens. The agent(s) detected by the [employer] RP2.1 may not be the definite cause of disease and clinical correlation with patient history and other diagnostic information is necessary to determine patient infection status. Negative results in the setting of a respiratory illness may be due to infection with pathogens notdetected by this test, or lower respiratory tract infection that may not be detected by a nasopharyngeal specimen. Negative results do not preclude SARS-CoV-2 infection and should not be used as the sole basis for patient management decisions. Negative RADHA-CoV-2 results must be combined with clinical observations, patient history and epidemiological information. Negative results for other organisms identified by the test may require additional laboratory testing when evaluating a patient with possible respiratory tract infection. Urine Culture Urine, Indwelling Catheter [[id number]] (Abnormal) Collected: 02/04/25 1143 Specimen: Urine, Indwelling Catheter Updated: 02/06/25 1152 CULTURE RESULTS 10,000-50,000 CFU/mL Mackenzie albicans Concurrent Antibiotics: Anti-infectives (From admission, onward) Start Dose/Rate Route Frequency Ordered Stop 02/10/25 1105 azithromycin (ZITHROMAX) tablet 250 mg 250 mg oral Once per day on Friday02/10/25 1106 02/10/25 0000 vancomycin 1,000 mg in sodium chloride 0.9 % 250 mL IVPB W/ADAPTER 1,000 mg intravenous Every 12 hours 02/10/25 1036 02/18/25 2359 02/09/25 1400 vancomycin (VANCOCIN) 1,000 mg in sodium chloride 0.9 % 250 mL IVPB W/ADAPTER 1,000 mg 250 mL/hr over 60 Minutes intravenous Every 12 hours 02/09/25 0725 Recent Vancomycin Serum Concentrations: Results from last 7 days Lab Units 02/11/25 0758 02/11/25 0519 02/09/25 0505 02/09/25 0117 02/07/25 1633 02/07/25 1142 VANCOMYCIN PEAK ug/mL 24.3* -- 20.3* -- 17.8* -- VANCOMYCIN TROUGH ug/mL -- 10.8 -- 9.8 -- 5.4 Indication: bacteremia Goal Vancomycin Range: AUC 400-600 mcg*hr/mL Assessment . Patient is currently ordered vancomycin 1000 mg IV with a dosing interval of every 12 hours. Today is day 8 of therapy. ?? Renal function assessment: Stable ?? The calculated vancomycin AUC for this dosing regimen is 419.6 mcg*hr/mL. This is a Therapeutic AUC. ?? Patient-specific risk-factors for nephrotoxicity include: concomitant nephrotoxic medications and advanced age. Plan ?? Continue current vancomycin regimen ?? The next vancomycin trough and peak for AUC monitoring will be ordered for 02/15, unless clinically indicated sooner ?? Please see electronic record for orders Pharmacy Dosing Service to follow serum concentrations and adjust as needed based on the patient's clinical status. Thank you for consulting. Yessi Almaguer RPH * Yessi Almaguer RPH - 02/11/2025 7:19 AM EDT Pharmacokinetic Consult - Follow Up Warfarin Dosing Minnie Cortez is a 64 y.o. female for whom pharmacy has been consulted for warfarin dosing and monitoring. Subjective Anticoag Therapy Indication: Cardiac dysrhythmia Target INR: 2 - 3 Current inpatient warfarin regimen: see admin Current Hematologic Labs Results from last 7 days Lab Units 02/11/25 0519 02/10/25 0518 02/09/25 0117 02/08/25 0202 02/07/25 0217 02/06/25 0201 02/05/25 0252 02/04/25 1208 INR 2.1* 1.8* 2.3* 2.3* 2.2* 1.8* 2.8* 3.2* Warfarin Administrations (last 168 hours) Date/Time Action Medication Dose 02/10/25 1546 Given warfarin (COUMADIN) tablet 3 mg 3 mg 02/09/25 1804 Given warfarin (COUMADIN) tablet 2.5 mg 2.5 mg 02/08/25 1503 Given warfarin (COUMADIN) tablet 2.5 mg 2.5 mg 02/07/25 1631 Given warfarin (COUMADIN) tablet 2.5 mg 2.5 mg Assessment INR currently: therapeutic Drug-drug interactions: duloxetine, liothyronine Drug-disease state interactions: CHF, bacteremia Plan RX Anticoag Warfarin IP dose plan: Continue current warfarin regimen of 3 mg daily. Pharmacist will continue to follow patient's clinical progress daily. Yessi Almagure RPH Ext [phone] * Kaylin Payne RN - 02/10/2025 10:16 PM EDT Images from the original note were not included. FOLLOW-UP: Post-Intensive Care Rounding Note Patient: Minnie Cortez DOB: 1960 Age: 64 y.o. Length of Stay: 6 days Admission Diagnosis: Tachycardia [R00.0] Acute on chronic respiratory failure (CMS-HCC) [J96.20] Non-sustained ventricular tachycardia (CMS-HCC) [I47.29] Reviewing patient due to her recent transfer out from Intensive Care. Recorded vital signs are stable and the patient is not noted to be in any apparent distress. Telemetry and monitoring noted. Staff may call with any issues or concerns regarding her clinical presentation or stability. Thank you, Kaylin Payne RN Rapid Response: [facility] * Lena Martinez RN - 02/10/2025 3:05 PM EDT Images from the original note were not included. FOLLOW-UP: Post-Intensive Care Rounding Note Patient: Minnie Cortez DOB: 1960 Age: 64 y.o. Length of Stay: 6 days Admission Diagnosis: Tachycardia [R00.0] Acute on chronic respiratory failure (CMS-HCC) [J96.20] Non-sustained ventricular tachycardia (CMS-HCC) [I47.29] Reviewing patient due to her recent transfer out from Intensive Care. Recorded vital signs are stable and the patient is not noted to be in any apparent distress. Telemetry and monitoring noted. Staff may call with any issues or concerns regarding her clinical presentation or stability. Thank you, LENA MARTINEZ RN Rapid Response: [facility] * Shireen DooleyDAMASO sullivan-MASTER PILOT - 02/10/2025 10:36 AM EDT Images from the original note were not included. Infectious Diseases Academic Team - Progress Note - Please contact us via [employer] chat. After hours, call [phone] Patient name: Minnie Cortez Patient Today's Date and Time: 02/10/2025, 10:36 AM Admission Date: 02/04/2025 Primary Care Physician: HOUSTON BROWN MD Impression and Recommendations: CoNS Bacteremia, Staph hominis PAF with RVR, s/p PPM (01/28/2025) Pt recently had a dual chamber pacemaker placed 01/28/2025 for PAF with RVR Blood cultures 02/04/2025 with CoNS, identified as Staph hominis in 2/2 bottles TTE was negative for valve vegetations Blood cultures cleared rapidly as of 02/05/2025 We are recommending IV Vanco x2 weeks of therapy (EOT 02/18/2025) followed by surveillance blood cultures at 2 and 4 weeks post antibiotic completion (03/04/2025 and 03/18/2025 respectively) Follow up a week after discharge Monitor CBC, BMP, and vanco levels weekly - OPAT done and orders placed Prescription put in chart for Vancomycin. Acute/Chronic Hypoxic Respiratory Failure COPD, on 3L per NC at baseline Pt's O2 needs are near baseline On Azithromycin 3x weekly Subjective Interval History: Pt was seen and examined at bedside, chart/labs/diagnostics reviewed. She had her PICC line placed.She is maintained on vancomycin and tolerating. Monitoring creatinine while on vancomycin Cr 0.28 Objective Physical Examination : BP 123/80 Pulse 70 Temp 36.8 ??C (98.2 ??F) (Oral) Resp 15 Ht 157.5 cm (5' 2.01 ) Wt 60 kg (132 lb 4.4 oz) SpO2 99% BMI 24.19 kg/m?? Temperature Range: Temp: 36.8 ??C (98.2 ??F) Temp Av.9 ??C (98.5 ??F) Min: 36.8 ??C (98.2 ??F)Max: 37.1 ??C (98.8 ??F) General Appearance: Awake, alert, and in no apparent distress. On NC oxygen at her baseline of 3-4LNC Pulmonary/Chest: Clear to auscultation, without wheezes, rales, or rhonchi Cardiovascular: Regular rate and rhythm without murmurs, rubs, or gallops. Abdomen: Soft, nontender, nondistended. Extremities: Upper extremity swelling. ESPERANZA PICC Neurologic: Bulk and tone are normal. No atrophy is noted. Skin: No rash or lesions. Laboratory data: I have independently reviewed the following labs: Results from last 7 days Lab Units 02/10/2551702/09/257 02/08/25 0202 WBC x10E9/L 5.1 5.1 6.0 HEMOGLOBIN g/dL 9.6* 9.5* 9.0* HEMATOCRIT % 30.5* 29.8* 27.7* MCV fL 91 90 89 PLATELETS X10E9/L 129* 129* 137* NEUTROS ABS MAN 10*3/uL 3.6 4.4 5.0 EOS ABS MAN 10*3/uL 0.1 -- -- Results from last 7 days Lab Units 02/10/2551702/09/25 0117 02/08/25 1229 02/08/25 0202 SODIUM mmol/L 145 145 -- 145 POTASSIUM mmol/L 4.3 4.3 4.8 3.8 CHLORIDE mmol/L 98 100 -- 100 CO2 mmol/L 45* 42* -- 41* BUN mg/dL 10 13 -- 17 CREATININE mg/dL 0.28* 0.39* -- 0.40 CALCIUM mg/dL 8.3* 8.3* -- 8.1* ALBUMIN g/dL 3.2 3.5 -- 3.3 ALK PHOS U/L 46 46 -- 42 ALT U/L 13 14 -- 14 AST U/L 9 12 -- 10 Results from last 7 days Lab Units 02/04/25 1208 HEMOGLOBIN A1C % 4.8 Results from last 7 days Lab Units 02/04/25 1143 COLOR UA Yellow TURBIDITY Clear SPECIFIC GRAVITY, URINE 1.032 NITRITE UA Negative PH URINE 8.0 LEUKOCYTE ESTERASE Negative PROTEIN Negative KETONES (URINE) Negative UROBILINOGEN <1.1 eu/dL BLOOD Negative Echo complete W/O contrast Result Date: 02/08/2025 Left Ventricle: Left ventricle appears normal in size. There is mild increased wall thickness/hypertrophy. Systolic function is normal with an ejection fraction of 65-70%. Unable to assess diastolic function due to atrial fibrillation/flutter. Tricuspid Valve: There is moderate regurgitation. RVSP c alculated at 50 mmHg. RVSP is based on RA pressure of 8 mmHg. Right Ventricle: Systolic function isnormal. Normal tricuspid annular plane systolic excursion. A pacer wire is present in the right ventricle. Aorta: The aortic root is normal in size. Pericardium: There is no pericardial effusion. Echo limited W/O contrast Result Date: 01/25/2025 Left Ventricle: Left ventricle is small. There is moderate increased wall thickness/hypertrophy. Systolic function is normal with an ejection fraction of 60-65%. Echo complete W/O contrast Result Date: 01/15/2025 Left Ventricle: Left ventricle appears normal in size. Systolic function is normal with an ejectionfraction of 55-60%. Imaging Studies: Cultures: Microbiology Results Procedure Component Value Units Date/Time Blood culture #1 [[id number]] Collected: 02/05/25 1231 Specimen: Blood, Venous Updated: 02/09/25 1402 CULTURE RESULTS NO GROWTH 4 DAYS Blood culture #2 [[id number]] Collected: 02/05/25 1231 Specimen: Blood, Venous Updated: 02/09/25 1402 CULTURE RESULTS NO GROWTH 4 DAYS Blood culture #1 [[id number]] (Abnormal) (Susceptibility) Collected: 02/04/25 1335 Specimen: Blood, Venous Updated: 02/07/25 0749 CULTURE RESULTS Staphylococcus hominis GRAM STAIN Gram positive cocci in clusters Narrative: Suboptimal volume of blood collected, Results may be affected. Susceptibility Staphylococcus hominis Not Specified Cefazolin Resistant (deduced) Clindamycin >=4.0 Resistant Doxycycline 4.0 Susceptible Oxacillin >=4.0 Resistant Trimethoprim + Sulfamethoxazole 4.0 Resistant Vancomycin 2.0 Susceptible Blood culture #2 [[id number]] (Abnormal) (Susceptibility) Collected: 02/04/25 1335 Specimen: Blood, Venous Updated: 02/07/25 0750 CULTURE RESULTS Staphylococcus hominis GRAM STAIN Gram positive cocci in clusters Narrative: Suboptimal volume of blood collected, Results may be affected. Susceptibility Staphylococcus hominis Not Specified Cefazolin Resistant (deduced) Clindamycin >=4.0 Resistant Doxycycline 4.0 Susceptible Oxacillin >=4.0 Resistant Trimethoprim + Sulfamethoxazole 4.0 Resistant Vancomycin 2.0 Susceptible BLOOD CULTURE IDENTIFICATION PANEL [[id number]] (Abnormal) Collected: 02/04/25 1335 Specimen: Blood, Venous Updated: 02/05/25 1049 Staphylococcus species PCR Detected Lower resp/sputum culture inc gram stain: Patient acquired [[id number]] (Abnormal) Collected: 02/04/25 1147 Specimen: Aspirate from Bronchus Updated: 02/06/25 1355 CULTURE RESULTS Few Mackenzie albicans Rare Non-lactose fermenting gram negative bacilli GRAM STAIN >25 White Blood Cells/LPF 1 to 9 Squamous Epithelial Cells/LPF 0 Ciliated Epithelial Cells/LPF Moderate Gram positive cocci in pairs, chains and clusters Few Gram negative bacilli Few Yeast Narrative: Along with Many Normal Respiratory Teresita. Mrsa Pcr nasal swab [[id number]] (Normal) Collected: 02/04/25 1147 Specimen: Swab from Nostril Updated: 02/04/25 1318 MRSA PCR NASAL Negative Resp Pathogens Panel/SARS CoV-2 [[id number]] (Normal) Collected: 02/04/25 1147 Specimen: Swab from Nasopharynx Updated: 02/04/25 1256 SARS COV 2 BY PCR Not Detected ADENOVIRUS Not Detected CORONAVIRUS 229E Not Detected CORONAVIRUS HKU1 Not Detected CORONAVIRUS NL63 Not Detected CORONAVIRUS OC43 Not Detected HUMAN METAPNEUVIRUS Not Detected RHINO/ENTEROVIRUS Not Detected INFLUENZA A Not Detected INFLUENZA B Not Detected PARAINFLUENZA 1 Not Detected PARAINFLUENZA 2 Not Detected PARAINFLUENZA 3 Not Detected PARAINFLUENZA 4 Not Detected RESP SYNCYTIAL VIRUS Not Detected BORD PARAPERTUSSIS Not Detected BORDETELLA PERTUSSIS Not Detected CHLAM.PNEUMONIAE Not Detected MYCOPLASMA PNEUMONIAE Not Detected Narrative: The [employer] Respiratory Panel 2.1 (RP2.1) is a multiplexed nucleic acid test intended for the simultaneous qualitative detection and differentiation of nucleic acid from multiple viral and bacterial respiratory organisms, including nucleic acid from Severe Acute Respiratory Syndrome Coronavirus 2 (SARS-CoV-2), in nasopharyngeal swabs obtained from individuals suspected of COVID-19 by their healthcare provider. Testing is limited to laboratories certified under the Clinical Laboratory Improvement Amendments of 1988 (CLIA), to perform high complexity or moderate complexity tests. SARS-CoV-2 RNA and nucleic acids from the other respiratory viral and bacterial organisms identified by this test are generally detectable in nasopharyngeal swabs during the acute phase of infection.The detection and identification of specific viral and bacterial nucleic acids from individuals exhibiting signs and/or symptoms of respiratory infection is indicative of the presence of the identified microorganism and aids in the diagnosis of respiratory infection if used in conjunction with other clinical and epidemiological information. Positive results are indicative of the presence of the identified organism, but do not rule out co-infection with other pathogens. The agent(s) detected by the [employer] RP2.1 may not be the definite cause of disease and clinical correlation with patient history and other diagnostic information is necessary to determine patient infection status. Negative results in the setting of a respiratory illness may be due to infection with pathogens notdetected by this test, or lower respiratory tract infection that may not be detected by a nasopharyngeal specimen. Negative results do not preclude SARS-CoV-2 infection and should not be used as the sole basis for patient management decisions. Negative RADHA-CoV-2 results must be combined with clinical observations, patient history and epidemiological information. Negative results for other organisms identified by the test may require additional laboratory testing when evaluating a patient with possible respiratory tract infection. Urine Culture Urine, Indwelling Catheter [[id number]] (Abnormal) Collected: 02/04/25 1143 Specimen: Urine, Indwelling Catheter Updated: 02/06/25 1152 CULTURE RESULTS 10,000-50,000 CFU/mL Mackenzie albicans Medications: atorvastatin, 10 mg, oral, Daily busPIRone, 10 mg, oral, Nightly DULoxetine, 80 mg, oral, Daily fluticasone furoate-vilanteroL, 1 puff, inhalation, Daily furosemide, 20 mg, oral, Daily gabapentin, 300 mg, oral, TID ipratropium-albuteroL, 3 mL, nebulization, Q6H liothyronine, 25 mcg, oral, Daily predniSONE, 40 mg, oral, Daily with breakfast [COMPLETED] Consult PICC nurse - PICC, , , Once AND sodium chloride, 10 mL, intravenous, Q12H AND sodium chloride, 10 mL, intravenous, PRN AND sodium chloride, 20 mL, intravenous, PRN sodium chloride, 30 mL, intravenous, Q8H AND sodium chloride, 30 mL, intravenous, PRN AND sodium chloride, 60 mL, intravenous, PRN traZODone, 25 mg, oral, Nightly vancomycin, 1,000 mg, intravenous, Q12H warfarin, 3 mg, oral, Daily Thank you for allowing us to participate in the care of this patient. Please call with questions. ANGELICA Dill CNP 02/10/25 1040 * Yusef Morales MD - 02/10/2025 10:18 AM EDT Images from the original note were not included. Adult ICU Progress Note [facility] - [facility] 64 [facility] 1960 [id number] Date of Admission - 02/04/2025 10:58 AM ICU Length of Stay: 5d 2h Interval History Minnie Cortez is a 64 y.o. female with a past medical history of chronic hypercarbic respiratory failure secondary to COPD on 3L O2 (baseline CO2: 60), WILIAN, and paroxysmal A-Fib on Warfarin s/p prior DCCV, CTI RFA ablation with dual-chamber pacemaker placement on previous admission one week ago. Patient was recently hospitalized at [facility] from 02/03 01/30 due to Afib with RVR, and situation was C/B intubation sedation in the ICU due to altered mentation and removing BiPAP machine from progressive unit. Patient was extubated after a couple of days, and had AV node RFA with dual chamber pacemaker placement by electrophysiology and recommended to continue flecainide and metoprolol if converted back to AFib with RVR. Patient was discharged on therapeutic range Coumadin INR 2.8, and was sent toS near [place]. Very little information was received from handoff from [facility], however patient was found unresponsive at [facility] and had a GCS score of [address] to the hospital and decreased to 6 which required intubation for protection of airway. Patient was then transferred back to [facility] ICU for concern of decompensation. CT brain without contrast and CT chest abdomen and pelvis with contrast weredone at [place], and only remarkable finding was pleural effusion b/l With [id number], and some anasarca in the abdomen. Oliveros interrogation of AICD showed no event occurred any time during this morning or afternoon. Electrophysiology was consulted for evaluation as patient is telemet ry showed concerns for NSVT. No further information was known, and patient was intubated and sedated upon arrival. Moving all 4 extremities spontaneously. 02/05/2025: Patient was extubated. Failed swallow bedside swallow test. Warfarin subtherapeutic; initiated on heparin. 02/07: BCx x2 Staphylococcus hominis, continue vancomycin and can discontinue Zosyn per ID. Weaningoff Precedex and restarted all anti anxiolytic medications trazodone, Atarax, BuSpar. Subjective Patient seen and evaluated at bedside, overnight patient's Burr was removed, and PVR showed retention of 390 cc, so patient was straight cathed. We will assess if patient requires Burr throughout the day, and start planning for transfer/discharge at this time. Patient doing well this encounter, and states that she feels much better after PT evaluation yesterday. We will require 2 weeks of vancomycin IV treatment for coagulase-negative Staph hominis bacterial culture with EOT 02/18/2025. TTE negative for vegetation, however ID recommending 2 weeks and 4 weeksafter antibiotics course is complete to recheck blood cultures. PICC line ordered Patient will require prior authorization to [facility] prior to discharge. Interval history 02/10/2025 Patient was transferred out of the ICU yesterday and has been doing well on the floor. We will continue to wear overnight BiPAP. Objective Vitals Temp: [36.8 ??C (98.2 ??F)-37.1 ??C (98.8 ??F)] 36.8 ??C (98.2 ??F) Pulse: [70-81] 70 Resp: [14-21] 15 BP: (112-156)/(49-85) 123/80 FiO2 (%): [40 %] 40 % SpO2: [90 %-100 %] 99 % O2 Device: Nasal cannula O2 Flow Rate (L/min): [4 L/min-5 L/min] 4 L/min Weight: Admission weight: 57.2 kg (126 lb 1.7 oz) Wt Readings from Last 3 Encounters: 02/10/25 60 kg (132 lb 4.4 oz) 01/30/25 57.2 kg (126 lb 1.7 oz) 01/14/25 59 kg (130 lb 1.1 oz) Input/Output: Intake/Output Summary (Last 24 hours) at 02/10/2025 1019 Last data filed at 02/10/2025 0452 Gross per 24 hour Intake 360 ml Output 900 ml Net -540 ml Ventilator: Settings Vent Mode: S/T FiO2 (%): 40 % Resp Rate (Set): 8 Vt (Set, mL): 450 mL Avea Vt (Set, L): 0.45 Liter PEEP/CPAP (cm H2O): 8 cm H20 MAP: 7.7 I:E Ratio: 1:3:9 Insp Time (sec): 1 sec Insp Rise Time (%): 3 % Trigger Sensitivity Pressure (cm H2O): 1 cm H2O IPAP: 18 EPAP: 6 Humidification: Heat and moisture exchanger Physical Exam Constitutional: General: She is awake. She is not in acute distress. Appearance: Normal appearance. Interventions: Face mask in place. HENT: Head: Normocephalic and atraumatic. Eyes: General: No scleral icterus. Conjunctiva/sclera: Conjunctivae normal. Pupils: Pupils are equal, round, and reactive to light. Cardiovascular: Rate and Rhythm: Normal rate and regular rhythm. Pulses: Normal pulses. Heart sounds: Normal heart sounds. Pulmonary: Effort: Prolonged expiration present. No respiratory distress. Comments: Globally decreased breath sounds bilaterally. On BiPAP Abdominal: General: Bowel sounds are normal. There is no distension. Tenderness: There is no abdominal tenderness. There is no guarding or rebound. Musculoskeletal: General: No swelling or tenderness. Cervical back: Normal range of motion and neck supple. Right lower leg: No edema. Left lower leg: No edema. Skin: Coloration: Skin is not jaundiced or pale. Neurological: General: No focal deficit present. Mental Status: She is alert. Mental status is at baseline. She is disoriented. Cranial Nerves: No cranial nerve deficit. Motor: Tremor present. Comments: Precedex on. Following commands. Psychiatric: Mood and Affect: Mood normal. Behavior: Behavior normal. Behavior is cooperative. Lab Results Results from last 7 days Lab Units 02/10/2551702/09/2511602/08/25 020 WBC x10E9/L 5.1 5.1 6.0 HEMOGLOBIN g/dL 9.6* 9.5* 9.0* HEMATOCRIT % 30.5* 29.8* 27.7* PLATELETS X10E9/L 129* 129* 137* Results from last 7 days Lab Units 02/10/2551702/09/25 01102/08/25 0202 02/07/25 0217 02/06/25 0201 APTT sec -- -- -- -- 26 INR 1.8* 2.3* 2.3* < > 1.8* < > = values in this interval not displayed. Results from last 7 days Lab Units 02/10/2551702/09/2511602/08/25 1229 02/08/25 0202 SODIUM mmol/L 145 145 -- 145 POTASSIUM mmol/L 4.3 4.3 4.8 3.8 CHLORIDE mmol/L 98 100 -- 100 CO2 mmol/L 45* 42* -- 41* BUN mg/dL 10 13 -- 17 CREATININE mg/dL 0.28* 0.39* -- 0.40 CALCIUM mg/dL 8.3* 8.3* -- 8.1* PHOSPHORUS mg/dL 2.5 2.8 -- 3.2 MAGNESIUM mg/dL 1.9 2.0 -- 1.9 Results from last 7 days Lab Units 02/10/2551702/09/2511602/08/25 020 ALBUMIN g/dL 3.2 3.5 3.3 PROTEIN TOTAL g/dL 4.9* 5.3* 5.0* ALT U/L 13 14 14 AST U/L 9 12 10 ALK PHOS U/L 46 46 42 Results from last 7 days Lab Units 02/10/2551702/09/25 01102/08/25 020 GLUCOSE mg/dL 87 148* 88 Lab Results Component Value Date HGBA1C 4.8 02/04/2025 Results from last 7 days Lab Units 02/05/25 1011 02/04/25 1755 02/04/25 1208 TROPONIN I HS ng/L -- 81* 96* BNP pg/mL 169* -- 302* Results from last 7 days Lab Units 02/04/25 1208 VITAMIN B 12 pg/mL 200 FOLATE ng/mL 12.0 FERRITIN ng/mL 90 IRON ug/dL 34* IRON BINDING CAPACITY ug/dL 301 IRON SATURATION % SATURATION 11* Lab Results Component Value Date SPECIFICGRA 1.032 02/04/2025 LEUKOCYTE Negative 02/04/2025 UROBILINOGEN <1.1 eu/dL 02/04/2025 Radiology X-ray chest 1 view Result Date: 02/09/2025 PROCEDURE: Single AP view of the chest. INDICATION: PICC ADJUSTED, CONFIRM NEW PLACEMENT . COMPARISON: Serial chest radiographs most recently dated earlier today at 1:02 PM. FINDINGS: Support lines,tubes, devices, surgical hardware, material: Left chest wall AICD/pacemaker with leads overlying the right atrium and right ventricle. Spinal nerve stimulator. Interval repositioning of right- sided PICC with tip overlying the cavoatrial junction. Lungs and Pleura: See Impression. No pneumothorax. Small layering right pleural effusion. Trace left pleural effusion. Cardiovascular and Mediastinum: The cardiomediastinal silhouette appears grossly stable noting a calcified tortuous aorta. IMPRESSION: 1. Interval repositioning of right-sided PICC with tip overlying the cavoatrial junction. 2. Similar mild interstitial edema and small right pleural effusion. 3. Trace left pleural effusion. 4. Emphysema.. Finalized by Kaci Rodriguez MD on 02/09/2025 3:31 PM X-ray chest 1 view Result Date: 02/09/2025 EXAM: XR CHEST 1 VW CLINICAL INFORMATION: picc placement. COMPARISON: 02/05/2025 FINDINGS: There is a right approach PICC. The tip terminates over the right apex in the right brachiocephalic vein. Stable mild interstitial edema with trace pleural effusions. There is mild right basilar atelectasis. Stable cardiomediastinal silhouette. The endotracheal tube, gastric tube, and right IJ central venouscatheter has been removed in the interval. Stable left chest wall pacemaker and leads. IMPRESSION: 1. Right approach PICC with the tip terminating over the right apex in the brachiocephalic vein. 2. Interval removal of the endotracheal tube, gastric tube, and right IJ central venous catheter. Thereis no evidence for a pneumothorax or shift of the mediastinal structures. 3. Mild interstitial edema with trace pleural effusions and mild right basilar atelectasis. Finalized byDaniel Moreland MD on 02/09/2025 1:21 PM Ultrasound chest left Result Date: 02/08/2025 CLINICAL INFORMATION: Pain and swelling. COMPARISON: None. Findings: Ultrasound scanning in the left chest performed. There is a complex fluid collection measuring 6.6 x 6.2 x 2.0 cm. No internal Doppler flow. The proximity of this abnormality to the patient's pacemaker is difficult to assess may be adjacent to this region. IMPRESSION: Complex fluid collection likely involuting hematoma, other etiologies could include abscess. Follow-up recommended to document resolution. Finalized by Jace Glover MD on 02/08/2025 2:39 PM Echo complete W/O contrast Result Date: 02/08/2025 Left Ventricle: Left ventricle appears normal in size. There is mild increased wall thickness/hypertrophy. Systolic function is normal with an ejection fraction of 65-70%. Unable to assess diastolic function due to atrial fibrillation/flutter. Tricuspid Valve: There is moderate regurgitation. RVSP c alculated at 50 mmHg. RVSP is based on RA pressure of 8 mmHg. Right Ventricle: Systolic function isnormal. Normal tricuspid annular plane systolic excursion. A pacer wire is present in the right ventricle. Aorta: The aortic root is normal in size. Pericardium: There is no pericardial effusion. Cultures Microbiology Results Procedure Component Value Units Date/Time Blood culture #1 [[id number]] Collected: 02/05/25 1231 Specimen: Blood, Venous Updated: 02/09/25 1402 CULTURE RESULTS NO GROWTH 4 DAYS Blood culture #2 [[id number]] Collected: 02/05/25 1231 Specimen: Blood, Venous Updated: 02/09/25 1402 CULTURE RESULTS NO GROWTH 4 DAYS Blood culture #1 [[id number]] (Abnormal) (Susceptibility) Collected: 02/04/25 1335 Specimen: Blood, Venous Updated: 02/07/25 0749 CULTURE RESULTS Staphylococcus hominis GRAM STAIN Gram positive cocci in clusters Narrative: Suboptimal volume of blood collected, Results may be affected. Susceptibility Staphylococcus hominis Not Specified Cefazolin Resistant (deduced) Clindamycin >=4.0 Resistant Doxycycline 4.0 Susceptible Oxacillin >=4.0 Resistant Trimethoprim + Sulfamethoxazole 4.0 Resistant Vancomycin 2.0 Susceptible Blood culture #2 [[id number]] (Abnormal) (Susceptibility) Collected: 02/04/25 1335 Specimen: Blood, Venous Updated: 02/07/25 0750 CULTURE RESULTS Staphylococcus hominis GRAM STAIN Gram positive cocci in clusters Narrative: Suboptimal volume of blood collected, Results may be affected. Susceptibility Staphylococcus hominis Not Specified Cefazolin Resistant (deduced) Clindamycin >=4.0 Resistant Doxycycline 4.0 Susceptible Oxacillin >=4.0 Resistant Trimethoprim + Sulfamethoxazole 4.0 Resistant Vancomycin 2.0 Susceptible BLOOD CULTURE IDENTIFICATION PANEL [[id number]] (Abnormal) Collected: 02/04/25 1335 Specimen: Blood, Venous Updated: 02/05/25 1049 Staphylococcus species PCR Detected Lower resp/sputum culture inc gram stain: Patient acquired [[id number]] (Abnormal) Collected: 02/04/25 1147 Specimen: Aspirate from Bronchus Updated: 02/06/25 1355 CULTURE RESULTS Few Mackenzie albicans Rare Non-lactose fermenting gram negative bacilli GRAM STAIN >25 White Blood Cells/LPF 1 to 9 Squamous Epithelial Cells/LPF 0 Ciliated Epithelial Cells/LPF Moderate Gram positive cocci in pairs, chains and clusters Few Gram negative bacilli Few Yeast Narrative: Along with Many Normal Respiratory Teresita. Mrsa Pcr nasal swab [[id number]] (Normal) Collected: 02/04/25 1147 Specimen: Swab from Nostril Updated: 02/04/25 1318 MRSA PCR NASAL Negative Resp Pathogens Panel/SARS CoV-2 [[id number]] (Normal) Collected: 02/04/25 1147 Specimen: Swab from Nasopharynx Updated: 02/04/25 1256 SARS COV 2 BY PCR Not Detected ADENOVIRUS Not Detected CORONAVIRUS 229E Not Detected CORONAVIRUS HKU1 Not Detected CORONAVIRUS NL63 Not Detected CORONAVIRUS OC43 Not Detected HUMAN METAPNEUVIRUS Not Detected RHINO/ENTEROVIRUS Not Detected INFLUENZA A Not Detected INFLUENZA B Not Detected PARAINFLUENZA 1 Not Detected PARAINFLUENZA 2 Not Detected PARAINFLUENZA 3 Not Detected PARAINFLUENZA 4 Not Detected RESP SYNCYTIAL VIRUS Not Detected BORD PARAPERTUSSIS Not Detected BORDETELLA PERTUSSIS Not Detected CHLAM.PNEUMONIAE Not Detected MYCOPLASMA PNEUMONIAE Not Detected Narrative: The [employer] Respiratory Panel 2.1 (RP2.1) is a multiplexed nucleic acid test intended for the simultaneous qualitative detection and differentiation of nucleic acid from multiple viral and bacterial respiratory organisms, including nucleic acid from Severe Acute Respiratory Syndrome Coronavirus 2 (SARS-CoV-2), in nasopharyngeal swabs obtained from individuals suspected of COVID-19 by their healthcare provider. Testing is limited to laboratories certified under the Clinical Laboratory Improvement Amendments of 1988 (CLIA), to perform high complexity or moderate complexity tests. SARS-CoV-2 RNA and nucleic acids from the other respiratory viral and bacterial organisms identified by this test are generally detectable in nasopharyngeal swabs during the acute phase of infection.The detection and identification of specific viral and bacterial nucleic acids from individuals exhibiting signs and/or symptoms of respiratory infection is indicative of the presence of the identified microorganism and aids in the diagnosis of respiratory infection if used in conjunction with other clinical and epidemiological information. Positive results are indicative of the presence of the identified organism, but do not rule out co-infection with other pathogens. The agent(s) detected by the [employer] RP2.1 may not be the definite cause of disease and clinical correlation with patient history and other diagnostic information is necessary to determine patient infection status. Negative results in the setting of a respiratory illness may be due to infection with pathogens notdetected by this test, or lower respiratory tract infection that may not be detected by a nasopharyngeal specimen. Negative results do not preclude SARS-CoV-2 infection and should not be used as the sole basis for patient management decisions. Negative RADHA-CoV-2 results must be combined with clinical observations, patient history and epidemiological information. Negative results for other organisms identified by the test may require additional laboratory testing when evaluating a patient with possible respiratory tract infection. Urine Culture Urine, Indwelling Catheter [[id number]] (Abnormal) Collected: 02/04/25 1143 Specimen: Urine, Indwelling Catheter Updated: 02/06/25 1152 CULTURE RESULTS 10,000-50,000 CFU/mL Mackenzie albicans Medications Scheduled: atorvastatin, 10 mg, oral, Daily busPIRone, 10 mg, oral, Nightly DULoxetine, 80 mg, oral, Daily fluticasone furoate-vilanteroL, 1 puff, inhalation, Daily furosemide, 20 mg, oral, Daily gabapentin, 300 mg, oral, TID ipratropium-albuteroL, 3 mL, nebulization, Q6H liothyronine, 25 mcg, oral, Daily predniSONE, 40 mg, oral, Daily with breakfast [COMPLETED] Consult PICC nurse - PICC, , , Once AND sodium chloride, 10 mL, intravenous, Q12H AND sodium chloride, 10 mL, intravenous, PRN AND sodium chloride, 20 mL, intravenous, PRN sodium chloride, 30 mL, intravenous, Q8H AND sodium chloride, 30 mL, intravenous, PRN AND sodium chloride, 60 mL, intravenous, PRN traZODone, 25 mg, oral, Nightly vancomycin, 1,000 mg, intravenous, Q12H warfarin, 3 mg, oral, Daily Infusions: sodium chloride 0.9 %, 10 mL/hr sodium chloride 0.9 %, 10 mL/hr sodium chloride 0.9 %, 10 mL/hr sodium chloride 0.9 %, 20 mL/hr As Needed: acetaminophen albuterol calcium gluconate OR calcium gluconate OR calcium gluconate dextrose dextrose 50 % in water (D50W) glucagon (human recombinant) guaiFENesin hydrALAZINE HYDROcodone-acetaminophen hydrOXYzine magnesium sulfate OR magnesium sulfate potassium chloride OR potassium chloride potassium chloride in water OR potassium chloride in water sodium phosphate IV OR sodium phosphate IV - central line OR sod phos di, mono-K phos mono [COMPLETED] Consult PICC nurse - PICC AND sodium chloride AND sodium chloride AND sodium chloride sodium chloride AND sodium chloride AND sodium chloride sodium chloride 0.9 % sodium chloride 0.9 % sodium chloride 0.9 % sodium chloride 0.9 % Assessment MDRO Staphylococcus Hominis Sepsis, likely dual-chamber pacemaker placement source BCx 10/17 showing Staphylococcus hominis with multiple resistance genes collected on 02/04 Repeat BCx x2 collected 02/05 NGTD x2 days Acute on chronic hypoxic hypercarbic respiratory failure s/p Intubation 02/04- 02/05, improving Baseline pCO2 approx 60-[address] chest w/ contrast (02/04) showed right greater than left b/l pleural effusions Paroxysmal atrial fibrillation/flutter with RVR s/p CTI RFA ablation 2021, AV node ablation and dual-chamber pacemaker placement 01/28/25 Oliveros interrogation of dual-chamber pacemaker resulted with no events in the past 24 hours - 02/05/25 EP consultation 02/04/25: discontinue flecanide, metoprolol, recommend anticoagulation with warfarin. COPD on 3L O2, on Azithromycin 3 times weekly Normocytic anemia Hypothyroidism WILIAN Plan Pending echocardiogram, and likely JUAN FRANCISCO soon after Continue nasal cannula when appropriate NIV overnight and during the day while asleep Continue Lasix home dose 20 mg oral Continue DuoNebs Continue prednisone 40 mg daily EOT 02/11/2025 Continue heparin infusion and warfarin to maintain INR of 2-3 Consider infectious disease consultation pending blood culture speciation Continue Vancomycin for now Remove indwelling catheters Continue monitoring and replete electrolytes per ICU protocol Continue home medications as appropriate (BuSpar 10 mg nightly, gabapentin 300 mg TID, trazodone 25mg nightly, Cymbalta 80 mg daily) 10:19 AM 02/10/25 Cosigned by Alejo Villalobos MD at 02/11/2025 9:45 AM EDT Associated attestation - Alejo Villalobos MD - 02/11/2025 9:45 AM EDT I personally saw this patient on the day of the encounter, performed the gamez portion(s) of the service and participated in the management and confirm the resident/fellow???s documentation. Please note there may be additional personal documentation from me Events overnight, continue to require oxygen 4-5 liters/minute and BiPAP at night. IV vancomycin per ID until February 18, TTE came back negative Alejo Villalobos MD Pulmonary and critical care [facility] * Yessi Almaguer [facility] - 02/10/2025 10:14 AM EDT Pharmacokinetic Consult - Follow Up Warfarin Dosing Minnie Cortez is a 64 y.o. female for whom pharmacy has been consulted for warfarin dosing and monitoring. Subjective Anticoag Therapy Indication: Cardiac dysrhythmia Target INR: 2 - 3 Current inpatient warfarin regimen: 2.5 mg daily Current Hematologic Labs Results from last 7 days Lab Units 02/10/25 0518 02/09/25 0117 02/08/25 0202 02/07/25 0217 02/06/25 0201 02/05/25 0252 02/04/25 1208 INR 1.8* 2.3* 2.3* 2.2* 1.8* 2.8* 3.2* Warfarin Administrations (last 168 hours) Date/Time Action Medication Dose 02/09/25 1804 Given warfarin (COUMADIN) tablet 2.5 mg 2.5 mg 02/08/25 1503 Given warfarin (COUMADIN) tablet 2.5 mg 2.5 mg 02/07/25 1631 Given warfarin (COUMADIN) tablet 2.5 mg 2.5 mg Assessment INR currently: subtherapeutic Drug-drug interactions: duloxetine, liothyronine Drug-disease state interactions: CHF Other pertinent information: INR trending down on 2.5 mg daily, will increase dose to 3 mg daily Plan RX Anticoag Warfarin IP dose plan: Change warfarin dose to 3 mg daily. Pharmacist will continue to follow patient's clinical progress daily. Yessi Almaguer RPH Ext [phone] * Khang Moreland MD - 02/10/2025 8:48 AM EDT Images from the original note were not included. DAILY PROGRESS NOTE IMS-3 This is a progress note for Minnie Cortez, a 64 y.o. who has been admitted for 6 midnights DATE OF ADMISSION 02/04/2025 10:58 AM HPI/HOSPITAL COURSE: Subjective Minnie Cortez is a 64 y.o. female with a PMH significant for chronic hypercarbic respiratory failure secondary to COPD on 3L O2 (baseline CO2: 60), WILIAN, and paroxysmal A-Fib on Warfarin s/p prior DCCV, CTI RFA ablation with dual-chamber pacemaker placement on previous admission one week ago. Patient was recently hospitalized at [facility] from 02/03 01/30 due to Afib with RVR, and situation was C/B intubation sedation in the ICU due to altered mentation and removing BiPAP machine from progressive unit. Patient was extubated after a couple of days, and had AV node RFA with dual chamber pacemaker placement by electrophysiology and recommended to continue flecainide and metoprolol if converted back to AFib with RVR. Patient was discharged on therapeutic range Coumadin INR 2.8, and was sent toSNF near [place]. Very little information was received from handoff from [facility], however patient was found unresponsive at SNF and had a GCS score of [address] to the hospital and decreased to 6 which required intubation for protection of airway. Patient was then transferred back to [facility] ICU for concern of decompensation. CT brain without contrast and CT chest abdomen and pelvis with contrast weredone at [place], and only remarkable finding was pleural effusion b/l With [id number]-[id number]-left, and some anasarca in the abdomen. Oliveros interrogation of AICD showed no event occurred any time during this morning or afternoon. Electrophysiology was consulted for evaluation as patient is telemet ry showed concerns for NSVT. No further information was known, and patient was intubated and sedated upon arrival. Moving all 4 extremities spontaneously. 02/05/2025: Patient was extubated. Failed swallow bedside swallow test. Warfarin subtherapeutic; initiated on heparin. 02/07: BCx x2 Staphylococcus hominis, continue vancomycin and can discontinue Zosyn per ID. Weaning off Precedex and restarted all anti anxiolytic medications trazodone, Atarax, BuSpar. Started warfarin in the afternoon. 02/09: PICC line order placed, antibiotics for vancomycin IV 2 weeks per ID, we will require BCx x2 2 and 4 weeks after completion of antibiotic course. INTERVAL HISTORY: The patient was examined at bedside. Patient denied fever, chills, nausea and vomiting. Patient denied shortness of breath, chest pain, or difficulty breathing. Objective Vital Signs: Patient Vitals for the past 24 hrs: BP Temp Temp src Pulse Resp SpO2 Weight 02/10/25 0940 -- -- -- 70 -- 99 % -- 02/10/25 0739 123/80 36.8 ??C (98.2 ??F) Oral 70 15 96 % -- 02/10/25 0452 -- -- -- -- -- -- 60 kg (132 lb 4.4 oz) 02/10/25 0451 112/85 36.8 ??C (98.3 ??F) Oral 70 18 94 % -- 02/10/25206 -- -- -- -- 21 100 % -- 02/09/25 2332 133/74 36.8 ??C (98.2 ??F) Oral 70 16 100 % -- 02/09/252021 -- -- -- -- 16 95 % -- 02/09/25 1928 156/49 37.1 ??C (98.8 ??F) Oral 70 14 95 % -- 02/09/25 1508 132/77 36.9 ??C (98.4 ??F) Oral 78 16 100 % -- 02/09/25 1332 116/81 37.1 ??C (98.8 ??F) Oral 77 -- 100 % -- 02/09/25 1200 151/75 37.1 ??C (98.8 ??F) Oral 81 15 90 % -- Weight: Admission weight: 57.2 kg (126 lb 1.7 oz) Wt Readings from Last 3 Encounters: 02/10/25 60 kg (132 lb 4.4 oz) 01/30/25 57.2 kg (126 lb 1.7 oz) 01/14/25 59 kg (130 lb 1.1 oz) Input/Output: Intake/Output Summary (Last 24 hours) at 02/10/2025 1153 Last data filed at 02/10/2025 0452 Gross per 24 hour Intake 360 ml Output 900 ml Net -540 ml Labs: Results from last 7 days Lab Units 02/10/2551702/09/25 0117 02/08/25 0202 WBC x10E9/L 5.1 5.1 6.0 HEMOGLOBIN g/dL 9.6* 9.5* 9.0* HEMATOCRIT % 30.5* 29.8* 27.7* PLATELETS X10E9/L 129* 129* 137* Results from last 7 days Lab Units 02/10/2551702/09/25 0117 02/08/25 0202 02/07/25 0217 02/06/25 0201 APTT sec -- -- -- -- 26 INR 1.8* 2.3* 2.3* < > 1.8* < > = values in this interval not displayed. Results from last 7 days Lab Units 02/10/25 0502/09/25 0117 02/08/25 1229 02/08/25 0202 SODIUM mmol/L 145 145 -- 145 POTASSIUM mmol/L 4.3 4.3 4.8 3.8 CHLORIDE mmol/L 98 100 -- 100 CO2 mmol/L 45* 42* -- 41* BUN mg/dL 10 13 -- 17 CREATININE mg/dL 0.28* 0.39* -- 0.40 CALCIUM mg/dL 8.3* 8.3* -- 8.1* PHOSPHORUS mg/dL 2.5 2.8 -- 3.2 MAGNESIUM mg/dL 1.9 2.0 -- 1.9 Results from last 7 days Lab Units 02/10/25 0502/09/25 0117 02/08/25 0202 ALBUMIN g/dL 3.2 3.5 3.3 PROTEIN TOTAL g/dL 4.9* 5.3* 5.0* ALT U/L 13 14 14 AST U/L 9 12 10 ALK PHOS U/L 46 46 42 Results from last 7 days Lab Units 02/10/25 0502/09/25 0117 02/08/25 0202 GLUCOSE mg/dL 87 148* 88 Lab Results Component Value Date HGBA1C 4.8 02/04/2025 Results from last 7 days Lab Units 02/05/25 1011 02/04/25 1755 02/04/25 1208 TROPONIN I HS ng/L -- 81* 96* BNP pg/mL 169* -- 302* Invalid input(s): ABGOXYGENSOUE Results from last 7 days Lab Units 02/04/25 1208 VITAMIN B 12 pg/mL 200 FOLATE ng/mL 12.0 FERRITIN ng/mL 90 IRON ug/dL 34* IRON BINDING CAPACITY ug/dL 301 IRON SATURATION % SATURATION 11* Lab Results Component Value Date SPECIFICGRA 1.032 02/04/2025 LEUKOCYTE Negative 02/04/2025 UROBILINOGEN <1.1 eu/dL 02/04/2025 Imaging: X-ray chest 1 view Result Date: 02/10/2025 XR CHEST 1 VW HISTORY: Hypoxia COMPARISON: 02/09/2025. CT chest 02/04/2025 FINDINGS: AP portable upright radiograph obtained. Right-sided PICC line terminates in the SVC. Stable appearance of cardiac pacing device and spinal cord stimulator leads. Emphysematous changes. Small right pleural effusion is mildly improved. Similar appearance of mildly prominent interstitial markings compatible with mildpulmonary edema or chronic interstitial lung disease. IMPRESSION: * Mildly improved small right pleural effusion. * Otherwise no significant interval change. Approved by Jody Mohamud DO on 02/10/2025 9:26 AM I, Manuel Fung MD have personally reviewed the image(s) and agree with and/or edited the report Finalized by Manuel Fung MD on 02/10/2025 11:23 AM X-ray chest 1 view Result Date: 02/09/2025 PROCEDURE: Single AP view of the chest. INDICATION: PICC ADJUSTED, CONFIRM NEW PLACEMENT . COMPARISON: Serial chest radiographs most recently dated earlier today at 1:02 PM. FINDINGS: Support lines,tubes, devices, surgical hardware, material: Left chest wall AICD/pacemaker with leads overlying the right atrium and right ventricle. Spinal nerve stimulator. Interval repositioning of right- sided PICC with tip overlying the cavoatrial junction. Lungs and Pleura: See Impression. No pneumothorax. Small layering right pleural effusion. Trace left pleural effusion. Cardiovascular and Mediastinum: The cardiomediastinal silhouette appears grossly stable noting a calcified tortuous aorta. IMPRESSION: 1. Interval repositioning of right-sided PICC with tip overlying the cavoatrial junction. 2. Similar mild interstitial edema and small right pleural effusion. 3. Trace left pleural effusion. 4. Emphysema.. Finalized by Kaci Rodriguez MD on 02/09/2025 3:31 PM X-ray chest 1 view Result Date: 02/09/2025 EXAM: XR CHEST 1 VW CLINICAL INFORMATION: picc placement. COMPARISON: 02/05/2025 FINDINGS: There is a right approach PICC. The tip terminates over the right apex in the right brachiocephalic vein. Stable mild interstitial edema with trace pleural effusions. There is mild right basilar atelectasis. Stable cardiomediastinal silhouette. The endotracheal tube, gastric tube, and right IJ central venouscatheter has been removed in the interval. Stable left chest wall pacemaker and leads. IMPRESSION: 1. Right approach PICC with the tip terminating over the right apex in the brachiocephalic vein. 2. Interval removal of the endotracheal tube, gastric tube, and right IJ central venous catheter. Thereis no evidence for a pneumothorax or shift of the mediastinal structures. 3. Mild interstitial edema with trace pleural effusions and mild right basilar atelectasis. Finalized byDaniel Moreland MD on 02/09/2025 1:21 PM Ultrasound chest left Result Date: 02/08/2025 CLINICAL INFORMATION: Pain and swelling. COMPARISON: None. Findings: Ultrasound scanning in the left chest performed. There is a complex fluid collection measuring 6.6 x 6.2 x 2.0 cm. No internal Doppler flow. The proximity of this abnormality to the patient's pacemaker is difficult to assess may be adjacent to this region. IMPRESSION: Complex fluid collection likely involuting hematoma, other etiologies could include abscess. Follow-up recommended to document resolution. Finalized by Jace Glover MD on 02/08/2025 2:39 PM Echo complete W/O contrast Result Date: 02/08/2025 Left Ventricle: Left ventricle appears normal in size. There is mild increased wall thickness/hypertrophy. Systolic function is normal with an ejection fraction of 65-70%. Unable to assess diastolic function due to atrial fibrillation/flutter. Tricuspid Valve: There is moderate regurgitation. RVSP c alculated at 50 mmHg. RVSP is based on RA pressure of 8 mmHg. Right Ventricle: Systolic function isnormal. Normal tricuspid annular plane systolic excursion. A pacer wire is present in the right ventricle. Aorta: The aortic root is normal in size. Pericardium: There is no pericardial effusion. Cultures: Microbiology Results Procedure Component Value Units Date/Time Blood culture #1 [[id number]] Collected: 02/05/25 1231 Specimen: Blood, Venous Updated: 02/09/25 1402 CULTURE RESULTS NO GROWTH 4 DAYS Blood culture #2 [[id number]] Collected: 02/05/25 1231 Specimen: Blood, Venous Updated: 02/09/25 1402 CULTURE RESULTS NO GROWTH 4 DAYS Blood culture #1 [[id number]] (Abnormal) (Susceptibility) Collected: 02/04/25 1335 Specimen: Blood, Venous Updated: 02/07/25 0749 CULTURE RESULTS Staphylococcus hominis GRAM STAIN Gram positive cocci in clusters Narrative: Suboptimal volume of blood collected, Results may be affected. Susceptibility Staphylococcus hominis Not Specified Cefazolin Resistant (deduced) Clindamycin >=4.0 Resistant Doxycycline 4.0 Susceptible Oxacillin >=4.0 Resistant Trimethoprim + Sulfamethoxazole 4.0 Resistant Vancomycin 2.0 Susceptible Blood culture #2 [[id number]] (Abnormal) (Susceptibility) Collected: 02/04/25 1335 Specimen: Blood, Venous Updated: 02/07/25 0750 CULTURE RESULTS Staphylococcus hominis GRAM STAIN Gram positive cocci in clusters Narrative: Suboptimal volume of blood collected, Results may be affected. Susceptibility Staphylococcus hominis Not Specified Cefazolin Resistant (deduced) Clindamycin >=4.0 Resistant Doxycycline 4.0 Susceptible Oxacillin >=4.0 Resistant Trimethoprim + Sulfamethoxazole 4.0 Resistant Vancomycin 2.0 Susceptible BLOOD CULTURE IDENTIFICATION PANEL [[id number]] (Abnormal) Collected: 02/04/25 1335 Specimen: Blood, Venous Updated: 02/05/25 1049 Staphylococcus species PCR Detected Lower resp/sputum culture inc gram stain: Patient acquired [[id number]] (Abnormal) Collected: 02/04/25 1147 Specimen: Aspirate from Bronchus Updated: 02/06/25 1355 CULTURE RESULTS Few Mackenzie albicans Rare Non-lactose fermenting gram negative bacilli GRAM STAIN >25 White Blood Cells/LPF 1 to 9 Squamous Epithelial Cells/LPF 0 Ciliated Epithelial Cells/LPF Moderate Gram positive cocci in pairs, chains and clusters Few Gram negative bacilli Few Yeast Narrative: Along with Many Normal Respiratory Teresita. Mrsa Pcr nasal swab [[id number]] (Normal) Collected: 02/04/25 1147 Specimen: Swab from Nostril Updated: 02/04/25 1318 MRSA PCR NASAL Negative Resp Pathogens Panel/SARS CoV-2 [[id number]] (Normal) Collected: 02/04/25 1147 Specimen: Swab from Nasopharynx Updated: 02/04/25 1256 SARS COV 2 BY PCR Not Detected ADENOVIRUS Not Detected CORONAVIRUS 229E Not Detected CORONAVIRUS HKU1 Not Detected CORONAVIRUS NL63 Not Detected CORONAVIRUS OC43 Not Detected HUMAN METAPNEUVIRUS Not Detected RHINO/ENTEROVIRUS Not Detected INFLUENZA A Not Detected INFLUENZA B Not Detected PARAINFLUENZA 1 Not Detected PARAINFLUENZA 2 Not Detected PARAINFLUENZA 3 Not Detected PARAINFLUENZA 4 Not Detected RESP SYNCYTIAL VIRUS Not Detected BORD PARAPERTUSSIS Not Detected BORDETELLA PERTUSSIS Not Detected CHLAM.PNEUMONIAE Not Detected MYCOPLASMA PNEUMONIAE Not Detected Narrative: The [employer] Respiratory Panel 2.1 (RP2.1) is a multiplexed nucleic acid test intended for the simultaneous qualitative detection and differentiation of nucleic acid from multiple viral and bacterial respiratory organisms, including nucleic acid from Severe Acute Respiratory Syndrome Coronavirus 2 (SARS-CoV-2), in nasopharyngeal swabs obtained from individuals suspected of COVID-19 by their healthcare provider. Testing is limited to laboratories certified under the Clinical Laboratory Improvement Amendments of 1988 (CLIA), to perform high complexity or moderate complexity tests. SARS-CoV-2 RNA and nucleic acids from the other respiratory viral and bacterial organisms identified by this test are generally detectable in nasopharyngeal swabs during the acute phase of infection.The detection and identification of specific viral and bacterial nucleic acids from individuals exhibiting signs and/or symptoms of respiratory infection is indicative of the presence of the identified microorganism and aids in the diagnosis of respiratory infection if used in conjunction with other clinical and epidemiological information. Positive results are indicative of the presence of the identified organism, but do not rule out co-infection with other pathogens. The agent(s) detected by the [employer] RP2.1 may not be the definite cause of disease and clinical correlation with patient history and other diagnostic information is necessary to determine patient infection status. Negative results in the setting of a respiratory illness may be due to infection with pathogens notdetected by this test, or lower respiratory tract infection that may not be detected by a nasopharyngeal specimen. Negative results do not preclude SARS-CoV-2 infection and should not be used as the sole basis for patient management decisions. Negative RADHA-CoV-2 results must be combined with clinical observations, patient history and epidemiological information. Negative results for other organisms identified by the test may require additional laboratory testing when evaluating a patient with possible respiratory tract infection. Urine Culture Urine, Indwelling Catheter [[id number]] (Abnormal) Collected: 02/04/25 1143 Specimen: Urine, Indwelling Catheter Updated: 02/06/25 1152 CULTURE RESULTS 10,000-50,000 CFU/mL Mackenzie albicans Hospital Medications: Scheduled: atorvastatin, 10 mg, oral, Daily azithromycin, 250 mg, oral, Once per day on Friday busPIRone, 10 mg, oral, Nightly DULoxetine, 80 mg, oral, Daily ferrous sulfate, 325 mg, oral, Q48H fluticasone furoate-vilanteroL, 1 puff, inhalation, Daily furosemide, 20 mg, oral, Daily gabapentin, 300 mg, oral, TID ipratropium-albuteroL, 3 mL, nebulization, Q6H liothyronine, 25 mcg, oral, Daily predniSONE, 40 mg, oral, Daily with breakfast [COMPLETED] Consult PICC nurse - PICC, , , Once AND sodium chloride, 10 mL, intravenous, Q12H AND sodium chloride, 10 mL, intravenous, PRN AND sodium chloride, 20 mL, intravenous, PRN sodium chloride, 30 mL, intravenous, Q8H AND sodium chloride, 30 mL, intravenous, PRN AND sodium chloride, 60 mL, intravenous, PRN traZODone, 25 mg, oral, Nightly vancomycin, 1,000 mg, intravenous, Q12H warfarin, 3 mg, oral, Daily Infusions: sodium chloride 0.9 %, 10 mL/hr sodium chloride 0.9 %, 10 mL/hr sodium chloride 0.9 %, 10 mL/hr sodium chloride 0.9 %, 20 mL/hr As Needed: acetaminophen albuterol calcium gluconate OR calcium gluconate OR calcium gluconate dextrose dextrose 50 % in water (D50W) glucagon (human recombinant) guaiFENesin hydrALAZINE HYDROcodone-acetaminophen hydrOXYzine magnesium sulfate OR magnesium sulfate potassium chloride OR potassium chloride potassium chloride in water OR potassium chloride in water sodium phosphate IV OR sodium phosphate IV - central line OR sod phos di, mono-K phos mono [COMPLETED] Consult PICC nurse - PICC AND sodium chloride AND sodium chloride AND sodium chloride sodium chloride AND sodium chloride AND sodium chloride sodium chloride 0.9 % sodium chloride 0.9 % sodium chloride 0.9 % sodium chloride 0.9 % Allergies: Allergies Allergen Reactions Lyrica [Pregabalin] Zonisamide Swelling Trouble breathing, tongue swells Nickel Rash Physical Exam Constitutional: General: She is not in acute distress. Appearance: She is ill-appearing. Eyes: General: Right eye: No discharge. Left eye: No discharge. Cardiovascular: Rate and Rhythm: Normal rate. Pulmonary: Effort: No respiratory distress. Breath sounds: No wheezing. Comments: On 4 L NC Abdominal: General: There is no distension. Tenderness: There is no abdominal tenderness. There is no guarding or rebound. Musculoskeletal: General: No tenderness. Right lower leg: No edema. Left lower leg: No edema. Skin: General: Skin is warm. Coloration: Skin is not jaundiced. Findings: Bruising (Around pacemaker site on left upper chest) present. Neurological: General: No focal deficit present. Mental Status: She is alert. Comments: Tremors in upper extremities. ASSESSMENT & PLAN: Minnie Cortez is a 64 y.o. female who presents with unresponsive at the SNF. 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 Repeat blood cultures NGTD. Continue IV vancomycin. EOT 02/18/2025. Discontinued Toprol and flecainide per EP. Resumed Coumadin with INR goal 2-3 DC plan: Id OP one-week upon DC. Weekly CBC, BNP, and vanco levels. Acute on chronic hypoxic respiratory failure, intubated, now requiring 5 L NC Severe COPD on 3 L NC at baseline - in acute exacerbation WILIAN on BiPAP nightly Continue home azithromycin 3 times weekly Completed 5 day course of steroids for COPD exacerbation Continue DuoNeb and Breo Ellipta Continue Lasix home dose 20 mg oral Wean off oxygen as tolerated. Repeat CXR today Pulmonology consulted; appreciate recommendations Normocytic anemia, likely KRISTAN Folate and B12 WNL. Low iron and iron saturation. Start ferrous sulfate tablets every other day Chronic Issues: Hypothyroidism - unable to resume levothyroxine in due to duloxetine drug interaction. Hyperlipidemia on Lipitor Chronic Tremors - worked up by Neurology in previous admission. Likely drug- induced tremors (gabapentin, Cymbalta, beta agonist) and likely exacerbated by acute on chronic hypercapnia from COPD. Gabapentin was reduced to 100 mg t.i.d. Recommended outpatient follow up in [facility]. Chronic back pain on chronic opiate use Anxiety disorder, unspecified - Continue home Cymbalta, BuSpar, duloxetine, trazodone, gabapentin DVT prophylaxis: Coumadin for atrial fibrillation Diet: Adult diet Regular Texture; Level 2 Mildly Thick Fluids: PO, prn Disposition: SNF Code Status: Full Code The patient was seen and discussed with attending Dr. Alejo Villalobos MD. See attending attestation for additional details. This note was created with the assistance of a speech-recognition program. Every effort was made toensure accuracy; however, inadvertent computerized dub room engineer errors may be present. Khang Moreland MD Internal Medicine Resident, [facility] 02/10/25 11:53 AM Cosigned by Sha Garcia MD at 02/10/2025 1:26 PM EDT Associated attestation - Sha Garcia MD - 02/10/2025 1:26 PM EDT I have seen and discussed the patient during rounds. I performed and participated in the critical/gamez portions of the service. I was directly involved in the management and treatment plan of the patient. I reviewed the resident's note and agree with the findings and plan. Sha Garcia MD [employer] Clinical assistant professor of chemistry in the Department of Internal Medicine , [facility] * Kaleb Urrutia RN - 02/09/2025 11:34 PM EDT Images from the original note were not included. FOLLOW-UP: Post-Intensive Care Rounding Note Patient: Minnie Cortez : 1960 Age: 64 y.o. Length of Stay: 5 days Admission Diagnosis: Tachycardia [R00.0] Acute on chronic respiratory failure (CMS-HCC) [J96.20] Non-sustained ventricular tachycardia (CMS-HCC) [I47.29] Reviewing patient due to her recent transfer out from Intensive Care. Recorded vital signs are stable and the patient is not noted to be in any apparent distress. Telemetry and monitoring noted. Staff may call with any issues or concerns regarding her clinical presentation or stability. Thank you, Kaleb Urrutia RN Rapid Response: [facility] * Eve Uribe PharmD - 02/09/2025 11:10 AM EDT Pharmacokinetic Consult - Follow Up Warfarin Dosing Minnie Cortez is a 64 y.o. female for whom pharmacy has been consulted for warfarin dosing and monitoring. Subjective Anticoag Therapy Indication: Cardiac dysrhythmia Target INR: 2 - 3 Current inpatient warfarin regimen: 2.5 mg daily Current Hematologic Labs Results from last 7 days Lab Units 02/09/25 0117 02/08/25 0202 02/07/25 0217 02/06/25 0201 02/05/25 0252 02/04/25 1208 INR 2.3* 2.3* 2.2* 1.8* 2.8* 3.2* Warfarin Administrations (last 168 hours) Date/Time Action Medication Dose 02/08/25 1503 Given warfarin (COUMADIN) tablet 2.5 mg 2.5 mg 02/07/25 1631 Given warfarin (COUMADIN) tablet 2.5 mg 2.5 mg Assessment INR currently: therapeutic Drug-drug interactions: prednisone Drug-disease state interactions: none Plan RX Anticoag Warfarin IP dose plan: Continue current warfarin regimen of 2.5 mg daily. Pharmacist will continue to follow patient's clinical progress daily. Eve Uribe PharmD Ext [phone] * Heather Samuel APRN-MASTER PILOT - 02/09/2025 10:39 AM EDT Images from the original note were not included. Infectious Diseases Academic Team - Progress Note - Please contact us via [employer] chat. After hours, call [phone] Patient name: Minnie Cortez Patient Today's Date and Time: 02/09/2025, 7:53 AM Admission Date: 02/04/2025 Primary Care Physician: HOUSTON BROWN MD Impression and Recommendations: CoNS Bacteremia, Staph hominis PAF with RVR, s/p PPM (01/28/2025) Pt recently had a dual chamber pacemaker placed 01/28/2025 for PAF with RVR Blood cultures 02/04/2025 with CoNS, identified as Staph hominis in 2/2 bottles TTE was negative for valve vegetations Blood cultures cleared rapidly as of 02/05/2025 We are recommending IV Vanco x2 weeks of therapy (EOT 02/18/2025) followed by surveillance blood cultures at 2 and 4 weeks post antibiotic completion (03/04/2025 and 03/18/2025 respectively) Monitor CBC, BMP, and vanco levels weekly - OPAT done and orders placed No objection to PICC line placement at this time Acute/Chronic Hypoxic Respiratory Failure COPD, on 3L per NC at baseline Pt's O2 needs are near baseline On Azithromycin 3x weekly Subjective Interval History: Pt was seen and examined at bedside, chart/labs/diagnostics reviewed. No acute events overnight. Nofever. No leukocytosis and sCr is stable on IV Vanco. No new culture growth. Denies worsening SOB, cough, chest pain, abd pain, n/v/d. Objective Physical Examination : BP 145/87 Pulse 78 Temp 36.5 ??C (97.7 ??F) (Oral) Resp 16 Ht 157.5 cm (5' 2.01 ) Wt 55.5kg (122 lb 5.7 oz) SpO2 100% BMI 22.37 kg/m?? Temperature Range: Temp: 36.5 ??C (97.7 ??F) Temp Av.8 ??C (98.2 ??F) Min: 36.5 ??C (97.7 ??F)Max: 36.9 ??C (98.5 ??F) General Appearance: Awake, alert, and in no apparent distress Pulmonary/Chest: Clear to auscultation, without wheezes, rales, or rhonchi Cardiovascular: Regular rate and rhythm without murmurs, rubs, or gallops. Abdomen: Soft, nontender, nondistended. Extremities: No cyanosis, clubbing, edema, or effusions. Neurologic: Bulk and tone are normal. No atrophy is noted. Skin: No rash or lesions. Laboratory data: I have independently reviewed the following labs: Results from last 7 days Lab Units 02/09/25 0117 02/08/25 0202 02/07/25 0911 02/07/25 0217 WBC x10E9/L 5.1 6.0 -- 4.0 HEMOGLOBIN g/dL 9.5* 9.0* 8.5* 6.8* HEMATOCRIT % 29.8* 27.7* 26.5* 21.4* MCV fL 90 89 -- 92 PLATELETS X10E9/L 129* 137* -- 144* NEUTROS ABS MAN 10*3/uL 4.4 5.0 -- 3.3 Results from last 7 days Lab Units 02/09/25 0117 02/08/25 1229 02/08/25 0202 02/07/25 0902/07/25 0217 SODIUM mmol/L 145 -- 145 -- 147* POTASSIUM mmol/L 4.3 4.8 3.8 < > 3.6 CHLORIDE mmol/L 100 -- 100 -- 99 CO2 mmol/L 42* -- 41* -- 41* BUN mg/dL 13 -- 17 -- 23 CREATININE mg/dL 0.39* -- 0.40 -- 0.39* CALCIUM mg/dL 8.3* -- 8.1* -- 8.6 ALBUMIN g/dL 3.5 -- 3.3 -- 3.2 ALK PHOS U/L 46 -- 42 -- 46 ALT U/L 14 -- 14 -- 15 AST U/L 12 -- 10 -- 10 < > = values in this interval not displayed. Results from last 7 days Lab Units 02/04/25 1208 HEMOGLOBIN A1C % 4.8 Results from last 7 days Lab Units 02/04/25 1143 COLOR UA Yellow TURBIDITY Clear SPECIFIC GRAVITY, URINE 1.032 NITRITE UA Negative PH URINE 8.0 LEUKOCYTE ESTERASE Negative PROTEIN Negative KETONES (URINE) Negative UROBILINOGEN <1.1 eu/dL BLOOD Negative Echo complete W/O contrast Result Date: 02/08/2025 Left Ventricle: Left ventricle appears normal in size. There is mild increased wall thickness/hypertrophy. Systolic function is normal with an ejection fraction of 65-70%. Unable to assess diastolic function due to atrial fibrillation/flutter. Tricuspid Valve: There is moderate regurgitation. RVSP c alculated at 50 mmHg. RVSP is based on RA pressure of 8 mmHg. Right Ventricle: Systolic function isnormal. Normal tricuspid annular plane systolic excursion. A pacer wire is present in the right ventricle. Aorta: The aortic root is normal in size. Pericardium: There is no pericardial effusion. Echo limited W/O contrast Result Date: 01/25/2025 Left Ventricle: Left ventricle is small. There is moderate increased wall thickness/hypertrophy. Systolic function is normal with an ejection fraction of 60-65%. Echo complete W/O contrast Result Date: 01/15/2025 Left Ventricle: Left ventricle appears normal in size. Systolic function is normal with an ejectionfraction of 55-60%. Imaging Studies: I have personally reviewed the study. Cultures: Microbiology Results Procedure Component Value Units Date/Time Blood culture #1 [[id number]] Collected: 02/05/25 1231 Specimen: Blood, Venous Updated: 02/08/25 1401 CULTURE RESULTS NO GROWTH 3 DAYS Blood culture #2 [[id number]] Collected: 02/05/25 1231 Specimen: Blood, Venous Updated: 02/08/25 1401 CULTURE RESULTS NO GROWTH 3 DAYS Blood culture #1 [[id number]] (Abnormal) (Susceptibility) Collected: 02/04/25 1335 Specimen: Blood, Venous Updated: 02/07/25 0749 CULTURE RESULTS Staphylococcus hominis GRAM STAIN Gram positive cocci in clusters Narrative: Suboptimal volume of blood collected, Results may be affected. Susceptibility Staphylococcus hominis Not Specified Cefazolin Resistant (deduced) Clindamycin >=4.0 Resistant Doxycycline 4.0 Susceptible Oxacillin >=4.0 Resistant Trimethoprim + Sulfamethoxazole 4.0 Resistant Vancomycin 2.0 Susceptible Blood culture #2 [[id number]] (Abnormal) (Susceptibility) Collected: 02/04/25 1335 Specimen: Blood, Venous Updated: 02/07/25 0750 CULTURE RESULTS Staphylococcus hominis GRAM STAIN Gram positive cocci in clusters Narrative: Suboptimal volume of blood collected, Results may be affected. Susceptibility Staphylococcus hominis Not Specified Cefazolin Resistant (deduced) Clindamycin >=4.0 Resistant Doxycycline 4.0 Susceptible Oxacillin >=4.0 Resistant Trimethoprim + Sulfamethoxazole 4.0 Resistant Vancomycin 2.0 Susceptible BLOOD CULTURE IDENTIFICATION PANEL [[id number]] (Abnormal) Collected: 02/04/25 1335 Specimen: Blood, Venous Updated: 02/05/25 1049 Staphylococcus species PCR Detected Lower resp/sputum culture inc gram stain: Patient acquired [[id number]] (Abnormal) Collected: 02/04/25 1147 Specimen: Aspirate from Bronchus Updated: 02/06/25 1355 CULTURE RESULTS Few Mackenzie albicans Rare Non-lactose fermenting gram negative bacilli GRAM STAIN >25 White Blood Cells/LPF 1 to 9 Squamous Epithelial Cells/LPF 0 Ciliated Epithelial Cells/LPF Moderate Gram positive cocci in pairs, chains and clusters Few Gram negative bacilli Few Yeast Narrative: Along with Many Normal Respiratory Teresita. Mrsa Pcr nasal swab [[id number]] (Normal) Collected: 02/04/25 1147 Specimen: Swab from Nostril Updated: 02/04/25 1318 MRSA PCR NASAL Negative Resp Pathogens Panel/SARS CoV-2 [[id number]] (Normal) Collected: 02/04/25 1147 Specimen: Swab from Nasopharynx Updated: 02/04/25 1256 SARS COV 2 BY PCR Not Detected ADENOVIRUS Not Detected CORONAVIRUS 229E Not Detected CORONAVIRUS HKU1 Not Detected CORONAVIRUS NL63 Not Detected CORONAVIRUS OC43 Not Detected HUMAN METAPNEUVIRUS Not Detected RHINO/ENTEROVIRUS Not Detected INFLUENZA A Not Detected INFLUENZA B Not Detected PARAINFLUENZA 1 Not Detected PARAINFLUENZA 2 Not Detected PARAINFLUENZA 3 Not Detected PARAINFLUENZA 4 Not Detected RESP SYNCYTIAL VIRUS Not Detected BORD PARAPERTUSSIS Not Detected BORDETELLA PERTUSSIS Not Detected CHLAM.PNEUMONIAE Not Detected MYCOPLASMA PNEUMONIAE Not Detected Narrative: The [employer] Respiratory Panel 2.1 (RP2.1) is a multiplexed nucleic acid test intended for the simultaneous qualitative detection and differentiation of nucleic acid from multiple viral and bacterial respiratory organisms, including nucleic acid from Severe Acute Respiratory Syndrome Coronavirus 2 (SARS-CoV-2), in nasopharyngeal swabs obtained from individuals suspected of COVID-19 by their healthcare provider. Testing is limited to laboratories certified under the Clinical Laboratory Improvement Amendments of 1988 (CLIA), to perform high complexity or moderate complexity tests. SARS-CoV-2 RNA and nucleic acids from the other respiratory viral and bacterial organisms identified by this test are generally detectable in nasopharyngeal swabs during the acute phase of infection.The detection and identification of specific viral and bacterial nucleic acids from individuals exhibiting signs and/or symptoms of respiratory infection is indicative of the presence of the identified microorganism and aids in the diagnosis of respiratory infection if used in conjunction with other clinical and epidemiological information. Positive results are indicative of the presence of the identified organism, but do not rule out co-infection with other pathogens. The agent(s) detected by the [employer] RP2.1 may not be the definite cause of disease and clinical correlation with patient history and other diagnostic information is necessary to determine patient infection status. Negative results in the setting of a respiratory illness may be due to infection with pathogens notdetected by this test, or lower respiratory tract infection that may not be detected by a nasopharyngeal specimen. Negative results do not preclude SARS-CoV-2 infection and should not be used as the sole basis for patient management decisions. Negative RADHA-CoV-2 results must be combined with clinical observations, patient history and epidemiological information. Negative results for other organisms identified by the test may require additional laboratory testing when evaluating a patient with possible respiratory tract infection. Urine Culture Urine, Indwelling Catheter [[id number]] (Abnormal) Collected: 02/04/25 1143 Specimen: Urine, Indwelling Catheter Updated: 02/06/25 1152 CULTURE RESULTS 10,000-50,000 CFU/mL Mackenzie albicans Medications: atorvastatin, 10 mg, oral, Daily busPIRone, 10 mg, oral, Nightly DULoxetine, 80 mg, oral, Daily fluticasone furoate-vilanteroL, 1 puff, inhalation, Daily furosemide, 20 mg, oral, Daily gabapentin, 300 mg, oral, TID ipratropium-albuteroL, 3 mL, nebulization, Q6H liothyronine, 25 mcg, oral, Daily metoprolol succinate XL, 50 mg, oral, Daily predniSONE, 40 mg, oral, Daily with breakfast sodium chloride, 30 mL, intravenous, Q8H AND sodium chloride, 30 mL, intravenous, PRN AND sodium chloride, 60 mL, intravenous, PRN traZODone, 25 mg, oral, Nightly vancomycin, 1,000 mg, intravenous, Q12H warfarin, 2.5 mg, oral, Daily Thank you for allowing us to participate in the care of this patient. Please call with questions. ANGELICA Macias 02/09/25 7:53 AM ANGELICA Macias 02/09/25 1808 * Yazmin Rodgers DO - 02/09/2025 8:47 AM EDT Images from the original note were not included. Adult ICU Progress Note Patient - Minn[facility] Cortez [facility] 64 [facility] 1960 [id number] Date of Admission - 02/04/2025 10:58 AM ICU Length of Stay: 4d 21h Interval History Minnie Cortez is a 64 y.o. female with a past medical history of chronic hypercarbic respiratory failure secondary to COPD on 3L O2 (baseline CO2: 60), WILIAN, and paroxysmal A-Fib on Warfarin s/p prior DCCV, CTI RFA ablation with dual-chamber pacemaker placement on previous admission one week ago. Patient was recently hospitalized at [facility] from 02/03 01/30 due to Afib with RVR, and situation was C/B intubation sedation in the ICU due to altered mentation and removing BiPAP machine from progressive unit. Patient was extubated after a couple of days, and had AV node RFA with dual chamber pacemaker placement by electrophysiology and recommended to continue flecainide and metoprolol if converted back to AFib with RVR. Patient was discharged on therapeutic range Coumadin INR 2.8, and [place]. Very little information was received from handoff from [facility], however patient was found unresponsive at SNF and had a GCS score of [address] to [address] hospital and decreased to 6 which required intubation for protection of airway. Patient was then transferred back to [facility] ICU for concern of decompensation. CT brain without contrast and CT chest abdomen and pelvis with contrast weredone at [place], and only remarkable finding was pleural effusion b/l With [id number]-left, and some anasarca in the abdomen. Oliveros interrogation of AICD showed no event occurred any time during this morning or afternoon. Electrophysiology was consulted for evaluation as patient is telemet ry showed concerns for NSVT. No further information was known, and patient was intubated and sedated upon arrival. Moving all 4 extremities spontaneously. 02/05/2025: Patient was extubated. Failed swallow bedside swallow test. Warfarin subtherapeutic; initiated on heparin. 02/07: BCx x2 Staphylococcus hominis, continue vancomycin and can discontinue Zosyn per ID. Weaning off Precedex and restarted all anti anxiolytic medications trazodone, Atarax, BuSpar. Subjective Patient seen and evaluated at bedside, overnight patient's Burr was removed, and PVR showed retention of 390 cc, so patient was straight cathed. We will assess if patient requires Burr throughout the day, and start planning for transfer/discharge at this time. Patient doing well this encounter, and states that she feels much better after PT evaluation yesterday. We will require 2 weeks of vancomycin IV treatment for coagulase-negative Staph hominis bacterial culture with EOT 02/18/2025. TTE negative for vegetation, however ID recommending 2 weeks and 4 weeksafter antibiotics course is complete to recheck blood cultures. PICC line ordered Patient will require prior authorization to [facility] prior to discharge. Objective Vitals Temp: [36.5 ??C (97.7 ??F)-36.9 ??C (98.5 ??F)] 36.5 ??C (97.7 ??F) Pulse: [64-81] 78 Resp: [14-26] 16 BP: (94-169)/(57-121) 145/87 FiO2 (%): [36 %-40 %] 40 % SpO2: [95 %-100 %] 100 % O2 Device: Nasal cannula O2 Flow Rate (L/min): [4 L/min] 4 L/min Weight: Admission weight: 57.2 kg (126 lb 1.7 oz) Wt Readings from Last 3 Encounters: 02/09/25 55.5 kg (122 lb 5.7 oz) 01/30/25 57.2 kg (126 lb 1.7 oz) 01/14/25 59 kg (130 lb 1.1 oz) Input/Output: Intake/Output Summary (Last 24 hours) at 02/09/2025 0847 Last data filed at 02/09/2025 0600 Gross per 24 hour Intake 552.53 ml Output 1535 ml Net -982.47 ml Ventilator: Settings Vent Mode: S/T FiO2 (%): 40 % Resp Rate (Set): 8 Vt (Set, mL): 450 mL Avea Vt (Set, L): 0.45 Liter PEEP/CPAP (cm H2O): 8 cm H20 MAP: 7.7 I:E Ratio: 1:3:9 Insp Time (sec): 1 sec Insp Rise Time (%): 3 % Trigger Sensitivity Pressure (cm H2O): 1 cm H2O IPAP: 12 EPAP: 6 Humidification: Heat and moisture exchanger Physical Exam Constitutional: General: She is awake. She is not in acute distress. Appearance: Normal appearance. Interventions: Face mask in place. HENT: Head: Normocephalic and atraumatic. Eyes: General: No scleral icterus. Conjunctiva/sclera: Conjunctivae normal. Pupils: Pupils are equal, round, and reactive to light. Cardiovascular: Rate and Rhythm: Normal rate and regular rhythm. Pulses: Normal pulses. Heart sounds: Normal heart sounds. Pulmonary: Effort: Prolonged expiration present. No respiratory distress. Comments: Globally decreased breath sounds bilaterally. On BiPAP Abdominal: General: Bowel sounds are normal. There is no distension. Tenderness: There is no abdominal tenderness. There is no guarding or rebound. Musculoskeletal: General: No swelling or tenderness. Cervical back: Normal range of motion and neck supple. Right lower leg: No edema. Left lower leg: No edema. Skin: Coloration: Skin is not jaundiced or pale. Neurological: General: No focal deficit present. Mental Status: She is alert. Mental status is at baseline. She is disoriented. Cranial Nerves: No cranial nerve deficit. Motor: Tremor present. Comments: Precedex on. Following commands. Psychiatric: Mood and Affect: Mood normal. Behavior: Behavior normal. Behavior is cooperative. Lab Results Results from last 7 days Lab Units 02/09/25 0117 02/08/25 0202 02/07/25 0911 02/07/25 0217 WBC x10E9/L 5.1 6.0 -- 4.0 HEMOGLOBIN g/dL 9.5* 9.0* 8.5* 6.8* HEMATOCRIT % 29.8* 27.7* 26.5* 21.4* PLATELETS X10E9/L 129* 137* -- 144* Results from last 7 days Lab Units 02/09/25 0117 02/08/25 0202 02/07/25 0217 02/06/25 0201 APTT sec -- -- -- 26 INR 2.3* 2.3* 2.2* 1.8* Results from last 7 days Lab Units 02/09/25 0117 02/08/25 1229 02/08/25 0202 02/07/25 0911 02/07/25 0217 SODIUM mmol/L 145 -- 145 -- 147* POTASSIUM mmol/L 4.3 4.8 3.8 < > 3.6 CHLORIDE mmol/L 100 -- 100 -- 99 CO2 mmol/L 42* -- 41* -- 41* BUN mg/dL 13 -- 17 -- 23 CREATININE mg/dL 0.39* -- 0.40 -- 0.39* CALCIUM mg/dL 8.3* -- 8.1* -- 8.6 PHOSPHORUS mg/dL 2.8 -- 3.2 -- 3.3 MAGNESIUM mg/dL 2.0 -- 1.9 -- 2.0 < > = values in this interval not displayed. Results from last 7 days Lab Units 02/09/25 0117 02/08/25 0202 02/07/25 0217 ALBUMIN g/dL 3.5 3.3 3.2 PROTEIN TOTAL g/dL 5.3* 5.0* 4.9* ALT U/L 14 14 15 AST U/L 12 10 10 ALK PHOS U/L 46 42 46 Results from last 7 days Lab Units 02/09/25 0117 02/08/25 0202 02/07/25 0217 GLUCOSE mg/dL 148* 88 98 Lab Results Component Value Date HGBA1C 4.8 02/04/2025 Results from last 7 days Lab Units 02/05/25 1011 02/04/25 1755 02/04/25 1208 TROPONIN I HS ng/L -- 81* 96* BNP pg/mL 169* -- 302* Results from last 7 days Lab Units 02/04/25 1208 VITAMIN B 12 pg/mL 200 FOLATE ng/mL 12.0 FERRITIN ng/mL 90 IRON ug/dL 34* IRON BINDING CAPACITY ug/dL 301 IRON SATURATION % SATURATION 11* Lab Results Component Value Date SPECIFICGRA 1.032 02/04/2025 LEUKOCYTE Negative 02/04/2025 UROBILINOGEN <1.1 eu/dL 02/04/2025 Radiology Ultrasound chest left Result Date: 02/08/2025 CLINICAL INFORMATION: Pain and swelling. COMPARISON: None. Findings: Ultrasound scanning in the left chest performed. There is a complex fluid collection measuring 6.6 x 6.2 x 2.0 cm. No internal Doppler flow. The proximity of this abnormality to the patient's pacemaker is difficult to assess may be adjacent to this region. IMPRESSION: Complex fluid collection likely involuting hematoma, other etiologies could include abscess. Follow-up recommended to document resolution. Finalized by Jace Glover MD on 02/08/2025 2:39 PM Echo complete W/O contrast Result Date: 02/08/2025 Left Ventricle: Left ventricle appears normal in size. There is mild increased wall thickness/hypertrophy. Systolic function is normal with an ejection fraction of 65-70%. Unable to assess diastolic function due to atrial fibrillation/flutter. Tricuspid Valve: There is moderate regurgitation. RVSP c alculated at 50 mmHg. RVSP is based on RA pressure of 8 mmHg. Right Ventricle: Systolic function isnormal. Normal tricuspid annular plane systolic excursion. A pacer wire is present in the right ventricle. Aorta: The aortic root is normal in size. Pericardium: There is no pericardial effusion. Fluoroscopy swallow motility function Result Date: 02/07/2025 CLINICAL INFORMATION: Oropharyngeal dysphagia. TECHNIQUE: Lateral videofluoroscopy during oral administration of one or more radiopaque diet consistencies. Reference air kerma: 1.2 mGy. COMPARISON: 01/26/2025. FINDINGS: Drinks Thin: Penetration. Mildly thick: No aspiration or penetration. Food Applesauce: No aspiration or penetration. Fruit: No aspiration or penetration. Cracker: No aspiration or penetration. IMPRESSION: * Penetration of thin liquid consistency. * Exam completed in conjunction with speech pathology. See speech pathology report in [facility] progress notes for details and recommendations. Approved by Resident Mathieu Jones DO on 02/07/2025 8:58 AM Manuel Mclean MD have personallyreviewed the image(s) and agree with and/or edited the report Finalized by Manuel Fung MD on 02/07/2025 8:58 AM Cultures Microbiology Results Procedure Component Value Units Date/Time Blood culture #1 [[id number]] Collected: 02/05/25 1231 Specimen: Blood, Venous Updated: 02/08/25 1401 CULTURE RESULTS NO GROWTH 3 DAYS Blood culture #2 [[id number]] Collected: 02/05/25 1231 Specimen: Blood, Venous Updated: 02/08/25 1401 CULTURE RESULTS NO GROWTH 3 DAYS Blood culture #1 [[id number]] (Abnormal) (Susceptibility) Collected: 02/04/25 1335 Specimen: Blood, Venous Updated: 02/07/25 0749 CULTURE RESULTS Staphylococcus hominis GRAM STAIN Gram positive cocci in clusters Narrative: Suboptimal volume of blood collected, Results may be affected. Susceptibility Staphylococcus hominis Not Specified Cefazolin Resistant (deduced) Clindamycin >=4.0 Resistant Doxycycline 4.0 Susceptible Oxacillin >=4.0 Resistant Trimethoprim + Sulfamethoxazole 4.0 Resistant Vancomycin 2.0 Susceptible Blood culture #2 [[id number]] (Abnormal) (Susceptibility) Collected: 02/04/25 1335 Specimen: Blood, Venous Updated: 02/07/25 0750 CULTURE RESULTS Staphylococcus hominis GRAM STAIN Gram positive cocci in clusters Narrative: Suboptimal volume of blood collected, Results may be affected. Susceptibility Staphylococcus hominis Not Specified Cefazolin Resistant (deduced) Clindamycin >=4.0 Resistant Doxycycline 4.0 Susceptible Oxacillin >=4.0 Resistant Trimethoprim + Sulfamethoxazole 4.0 Resistant Vancomycin 2.0 Susceptible BLOOD CULTURE IDENTIFICATION PANEL [[id number]] (Abnormal) Collected: 02/04/25 1335 Specimen: Blood, Venous Updated: 02/05/25 1049 Staphylococcus species PCR Detected Lower resp/sputum culture inc gram stain: Patient acquired [[id number]] (Abnormal) Collected: 02/04/25 1147 Specimen: Aspirate from Bronchus Updated: 02/06/25 1355 CULTURE RESULTS Few Mackenzie albicans Rare Non-lactose fermenting gram negative bacilli GRAM STAIN >25 White Blood Cells/LPF 1 to 9 Squamous Epithelial Cells/LPF 0 Ciliated Epithelial Cells/LPF Moderate Gram positive cocci in pairs, chains and clusters Few Gram negative bacilli Few Yeast Narrative: Along with Many Normal Respiratory Teresita. Mrsa Pcr nasal swab [[id number]] (Normal) Collected: 02/04/25 1147 Specimen: Swab from Nostril Updated: 02/04/25 1318 MRSA PCR NASAL Negative Resp Pathogens Panel/SARS CoV-2 [[id number]] (Normal) Collected: 02/04/25 1147 Specimen: Swab from Nasopharynx Updated: 02/04/25 1256 SARS COV 2 BY PCR Not Detected ADENOVIRUS Not Detected CORONAVIRUS 229E Not Detected CORONAVIRUS HKU1 Not Detected CORONAVIRUS NL63 Not Detected CORONAVIRUS OC43 Not Detected HUMAN METAPNEUVIRUS Not Detected RHINO/ENTEROVIRUS Not Detected INFLUENZA A Not Detected INFLUENZA B Not Detected PARAINFLUENZA 1 Not Detected PARAINFLUENZA 2 Not Detected PARAINFLUENZA 3 Not Detected PARAINFLUENZA 4 Not Detected RESP SYNCYTIAL VIRUS Not Detected BORD PARAPERTUSSIS Not Detected BORDETELLA PERTUSSIS Not Detected CHLAM.PNEUMONIAE Not Detected MYCOPLASMA PNEUMONIAE Not Detected Narrative: The [employer] Respiratory Panel 2.1 (RP2.1) is a multiplexed nucleic acid test intended for the simultaneous qualitative detection and differentiation of nucleic acid from multiple viral and bacterial respiratory organisms, including nucleic acid from Severe Acute Respiratory Syndrome Coronavirus 2 (SARS-CoV-2), in nasopharyngeal swabs obtained from individuals suspected of COVID-19 by their healthcare provider. Testing is limited to laboratories certified under the Clinical Laboratory Improvement Amendments of 1988 (CLIA), to perform high complexity or moderate complexity tests. SARS-CoV-2 RNA and nucleic acids from the other respiratory viral and bacterial organisms identified by this test are generally detectable in nasopharyngeal swabs during the acute phase of infection.The detection and identification of specific viral and bacterial nucleic acids from individuals exhibiting signs and/or symptoms of respiratory infection is indicative of the presence of the identified microorganism and aids in the diagnosis of respiratory infection if used in conjunction with other clinical and epidemiological information. Positive results are indicative of the presence of the identified organism, but do not rule out co-infection with other pathogens. The agent(s) detected by the [employer] RP2.1 may not be the definite cause of disease and clinical correlation with patient history and other diagnostic information is necessary to determine patient infection status. Negative results in the setting of a respiratory illness may be due to infection with pathogens notdetected by this test, or lower respiratory tract infection that may not be detected by a nasopharyngeal specimen. Negative results do not preclude SARS-CoV-2 infection and should not be used as the sole basis for patient management decisions. Negative RADHA-CoV-2 results must be combined with clinical observations, patient history and epidemiological information. Negative results for other organisms identified by the test may require additional laboratory testing when evaluating a patient with possible respiratory tract infection. Urine Culture Urine, Indwelling Catheter [[id number]] (Abnormal) Collected: 02/04/25 1143 Specimen: Urine, Indwelling Catheter Updated: 02/06/25 1152 CULTURE RESULTS 10,000-50,000 CFU/mL Mackenzie albicans Medications Scheduled: atorvastatin, 10 mg, oral, Daily busPIRone, 10 mg, oral, Nightly DULoxetine, 80 mg, oral, Daily fluticasone furoate-vilanteroL, 1 puff, inhalation, Daily furosemide, 20 mg, oral, Daily gabapentin, 300 mg, oral, TID ipratropium-albuteroL, 3 mL, nebulization, Q6H liothyronine, 25 mcg, oral, Daily metoprolol succinate XL, 50 mg, oral, Daily predniSONE, 40 mg, oral, Daily with breakfast sodium chloride, 30 mL, intravenous, Q8H AND sodium chloride, 30 mL, intravenous, PRN AND sodium chloride, 60 mL, intravenous, PRN traZODone, 25 mg, oral, Nightly vancomycin, 1,000 mg, intravenous, Q12H warfarin, 2.5 mg, oral, Daily Infusions: sodium chloride 0.9 %, 10 mL/hr sodium chloride 0.9 %, 10 mL/hr sodium chloride 0.9 %, 10 mL/hr sodium chloride 0.9 %, 20 mL/hr As Needed: acetaminophen albuterol calcium gluconate OR calcium gluconate OR calcium gluconate dextrose dextrose 50 % in water (D50W) glucagon (human recombinant) guaiFENesin hydrALAZINE HYDROcodone-acetaminophen hydrOXYzine magnesium sulfate OR magnesium sulfate potassium chloride OR potassium chloride potassium chloride in water OR potassium chloride in water sodium phosphate IV OR sodium phosphate IV - central line OR sod phos di, mono-K phos mono sodium chloride AND sodium chloride AND sodium chloride sodium chloride 0.9 % sodium chloride 0.9 % sodium chloride 0.9 % sodium chloride 0.9 % Assessment MDRO Staphylococcus Hominis Sepsis, likely dual-chamber pacemaker placement source BCx 10/17 showing Staphylococcus hominis with multiple resistance genes collected on 02/04 Repeat BCx x2 collected 02/05 NGTD x2 days Acute septic encephalopathy, resolved GCS of 6 requiring intubation for airway protection Acute on chronic hypoxic hypercarbic respiratory failure s/p Intubation 02/04- 02/05, improving Baseline pCO2 approx 60-[address] chest w/ contrast (02/04) showed right greater than left b/l pleural effusions Paroxysmal atrial fibrillation/flutter with RVR s/p CTI RFA ablation 2021, AV node ablation and dual-chamber pacemaker placement 01/28/25 Oliveros interrogation of dual-chamber pacemaker resulted with no events in the past 24 hours - 02/05/25 EP consultation 02/04/25: discontinue flecanide, metoprolol, recommend anticoagulation with warfarin Shock, most likely septic in setting of pneumonia and bacteremia, resolved Vasopressors off as of 02/06/25 COPD on 3L O2, on Azithromycin 3 times weekly Normocytic anemia Hypothyroidism WILIAN Plan Pending echocardiogram, and likely JUAN FRANCISCO soon after Continue nasal cannula when appropriate Follow-up daily ABG Continue Lasix home dose 20 mg oral Continue DuoNebs Continue prednisone 40 mg daily Continue heparin infusion and warfarin to maintain INR of 2-3 Consider infectious disease consultation pending blood culture speciation Continue Vancomycin for now Remove indwelling catheters Continue monitoring and replete electrolytes per ICU protocol Continue home medications as appropriate (BuSpar 10 mg nightly, gabapentin 300 mg TID, trazodone 25mg nightly, Cymbalta 80 mg daily) Vent Settings: Settings Vent Mode: S/T FiO2 (%): 40 % Resp Rate (Set): 8 Vt (Set, mL): 450 mL Avea Vt (Set, L): 0.45 Liter PEEP/CPAP (cm H2O): 8 cm H20 MAP: 7.7 I:E Ratio: 1:3:9 Insp Time (sec): 1 sec Insp Rise Time (%): 3 % Trigger Sensitivity Pressure (cm H2O): 1 cm H2O IPAP: 12 EPAP: 6 Humidification: Heat and moisture exchanger Last AB.47/60.1/100/44.1 on 02/06 Fluids: None Pressor support: none Lines (location & placement): left pIV Burr/PEG/Drains: None DVT prophylaxis: On Coumadin 2.5 mg daily GI prophylaxis: Pantoprazole 40 mg IV daily Wounds: Left chest from dual-chamber pacemaker placement Diet: Limited diet Code Status: Full code This progress note was completed using a voice dub room engineer system. Every effort was made to ensure accuracy. However, inadvertent computerized dub room engineer errors may be present. -------- Yazmin Rodgers DO Internal Medicine Resident 8:47 AM 02/09/25 Cosigned by Alejo Villalobos MD at 02/09/2025 3:49 PM EDT Associated attestation - Alejo Villalobos MD - 02/09/2025 3:49 PM EDT I personally saw this patient on the day of the encounter, performed the gamez portion(s) of the service and participated in the management and confirm the resident/fellow???s documentation. Please note there may be additional personal documentation from me Patient was extubated to nasal cannula. Blood culture came back positive for Staphylococcus hominis. Continue vancomycin through February 18. PICC line was placed. Precedex weaned off. H&H has been stable, continue anticoagulation with Coumadin and monitor INR Alejo Villalobos MD Pulmonary and critical care [facility] * Nilay Amador, PharmD - 02/09/2025 7:24 AM EDT Images from the original note were not included. Pharmacokinetic Consult - Vancomycin Dosing Minnie Cortez is a 64 y.o. female for whom pharmacy has been consulted for vancomycin dosing for bacteremia. Today is day 6 of vancomycin therapy. Relevant clinical data and objective history reviewed: Allergies: Lyrica [pregabalin], Zonisamide, and Nickel Results from last 3 days Lab Units 02/09/25 0117 02/08/25 0202 02/07/25 0911 02/07/25 0217 CREATININE mg/dL 0.39* 0.40 -- 0.39* BUN mg/dL 13 17 -- 23 WBC x10E9/L 5.1 6.0 -- 4.0 HEMOGLOBIN g/dL 9.5* 9.0* 8.5* 6.8* HEMATOCRIT % 29.8* 27.7* 26.5* 21.4* MCV fL 90 89 -- 92 Temp Readings from Last 3 Encounters: 02/09/25 36.5 ??C (97.7 ??F) (Oral) 01/30/25 36.9 ??C (98.4 ??F) (Oral) 01/14/25 36.4 ??C (97.5 ??F) (Oral) Renal Parameters: I/O last 3 completed shifts: In: 1134.3 [I.V.:311.7; IV Piggyback:822.6] Out: 2410 [Urine:2410] Calculated CrCl (IBW): 114 mL/min Culture Data: Microbiology Results Procedure Component Value Units Date/Time Blood culture #1 [[id number]] Collected: 02/05/25 1231 Specimen: Blood, Venous Updated: 02/08/25 1401 CULTURE RESULTS NO GROWTH 3 DAYS Blood culture #2 [[id number]] Collected: 02/05/25 1231 Specimen: Blood, Venous Updated: 02/08/25 1401 CULTURE RESULTS NO GROWTH 3 DAYS Blood culture #1 [[id number]] (Abnormal) (Susceptibility) Collected: 02/04/25 1335 Specimen: Blood, Venous Updated: 02/07/25 0749 CULTURE RESULTS Staphylococcus hominis GRAM STAIN Gram positive cocci in clusters Narrative: Suboptimal volume of blood collected, Results may be affected. Susceptibility Staphylococcus hominis Not Specified Cefazolin Resistant (deduced) Clindamycin >=4.0 Resistant Doxycycline 4.0 Susceptible Oxacillin >=4.0 Resistant Trimethoprim + Sulfamethoxazole 4.0 Resistant Vancomycin 2.0 Susceptible Blood culture #2 [[id number]] (Abnormal) (Susceptibility) Collected: 02/04/25 1335 Specimen: Blood, Venous Updated: 02/07/25 0750 CULTURE RESULTS Staphylococcus hominis GRAM STAIN Gram positive cocci in clusters Narrative: Suboptimal volume of blood collected, Results may be affected. Susceptibility Staphylococcus hominis Not Specified Cefazolin Resistant (deduced) Clindamycin >=4.0 Resistant Doxycycline 4.0 Susceptible Oxacillin >=4.0 Resistant Trimethoprim + Sulfamethoxazole 4.0 Resistant Vancomycin 2.0 Susceptible BLOOD CULTURE IDENTIFICATION PANEL [[id number]] (Abnormal) Collected: 02/04/25 1335 Specimen: Blood, Venous Updated: 02/05/25 1049 Staphylococcus species PCR Detected Lower resp/sputum culture inc gram stain: Patient acquired [[id number]] (Abnormal) Collected: 02/04/25 1147 Specimen: Aspirate from Bronchus Updated: 02/06/25 1355 CULTURE RESULTS Few Mackenzie albicans Rare Non-lactose fermenting gram negative bacilli GRAM STAIN >25 White Blood Cells/LPF 1 to 9 Squamous Epithelial Cells/LPF 0 Ciliated Epithelial Cells/LPF Moderate Gram positive cocci in pairs, chains and clusters Few Gram negative bacilli Few Yeast Narrative: Along with Many Normal Respiratory Teresita. Mrsa Pcr nasal swab [[id number]] (Normal) Collected: 02/04/25 1147 Specimen: Swab from Nostril Updated: 02/04/25 1318 MRSA PCR NASAL Negative Resp Pathogens Panel/SARS CoV-2 [[id number]] (Normal) Collected: 02/04/25 1147 Specimen: Swab from Nasopharynx Updated: 02/04/25 1256 SARS COV 2 BY PCR Not Detected ADENOVIRUS Not Detected CORONAVIRUS 229E Not Detected CORONAVIRUS HKU1 Not Detected CORONAVIRUS NL63 Not Detected CORONAVIRUS OC43 Not Detected HUMAN METAPNEUVIRUS Not Detected RHINO/ENTEROVIRUS Not Detected INFLUENZA A Not Detected INFLUENZA B Not Detected PARAINFLUENZA 1 Not Detected PARAINFLUENZA 2 Not Detected PARAINFLUENZA 3 Not Detected PARAINFLUENZA 4 Not Detected RESP SYNCYTIAL VIRUS Not Detected BORD PARAPERTUSSIS Not Detected BORDETELLA PERTUSSIS Not Detected CHLAM.PNEUMONIAE Not Detected MYCOPLASMA PNEUMONIAE Not Detected Narrative: The [employer] Respiratory Panel 2.1 (RP2.1) is a multiplexed nucleic acid test intended for the simultaneous qualitative detection and differentiation of nucleic acid from multiple viral and bacterial respiratory organisms, including nucleic acid from Severe Acute Respiratory Syndrome Coronavirus 2 (SARS-CoV-2), in nasopharyngeal swabs obtained from individuals suspected of COVID-19 by their healthcare provider. Testing is limited to laboratories certified under the Clinical Laboratory Improvement Amendments of 1988 (CLIA), to perform high complexity or moderate complexity tests. SARS-CoV-2 RNA and nucleic acids from the other respiratory viral and bacterial organisms identified by this test are generally detectable in nasopharyngeal swabs during the acute phase of infection.The detection and identification of specific viral and bacterial nucleic acids from individuals exhibiting signs and/or symptoms of respiratory infection is indicative of the presence of the identified microorganism and aids in the diagnosis of respiratory infection if used in conjunction with other clinical and epidemiological information. Positive results are indicative of the presence of the identified organism, but do not rule out co-infection with other pathogens. The agent(s) detected by the BioFire RP2.1 may not be the definite cause of disease and clinical correlation with patient history and other diagnostic information is necessary to determine patient infection status. Negative results in the setting of a respiratory illness may be due to infection with pathogens notdetected by this test, or lower respiratory tract infection that may not be detected by a nasopharyngeal specimen. Negative results do not preclude SARS-CoV-2 infection and should not be used as the sole basis for patient management decisions. Negative RADHA-CoV-2 results must be combined with clinical observations, patient history and epidemiological information. Negative results for other organisms identified by the test may require additional laboratory testing when evaluating a patient with possible respiratory tract infection. Urine Culture Urine, Indwelling Catheter [[id number]] (Abnormal) Collected: 02/04/25 1143 Specimen: Urine, Indwelling Catheter Updated: 02/06/25 1152 CULTURE RESULTS 10,000-50,000 CFU/mL Mackenzie albicans Concurrent Antibiotics: Anti-infectives (From admission, onward) Start Dose/Rate Route Frequency Ordered Stop 02/08/25 0200 vancomycin (VANCOCIN) 750 mg in sodium chloride 0.9 % 250 mL IVPB W/ADAPTER 750 mg 250 mL/hr over 60 Minutes intravenous Every 12 hours 02/07/25 1740 Recent Vancomycin Serum Concentrations: Results from last 7 days Lab Units 02/09/25 0505 02/09/25 0117 02/07/25 1633 02/07/25 1142 VANCOMYCIN PEAK ug/mL 20.3* -- 17.8* -- VANCOMYCIN TROUGH ug/mL -- 9.8 -- 5.4 Indication: Bacteremia Goal Vancomycin Range: AUC 400-600 mcg*hr/mL Assessment Patient is currently ordered vancomycin 750 mg IV with a dosing interval of q12h. Today is day 6 oftherapy. Renal function assessment: Stable The most recent vancomycin trough was 9.8 mcg/mL collected at 0115 on 02/09. This is a 10.25 hour level on the 6 day of therapy. The most recent vancomycin peak was 20.3 mcg/mL collected at 0500 on 02/09, 3 hours following the end of the vancomycin infusion. The calculated vancomycin AUC for this dosing regimen is 364 mcg*hr/mL. This is a subtherapeutic AUC. Patient-specific risk-factors for nephrotoxicity include: pre-existing renal impairment and advanced age. Plan Will increase vancomycin to 1000 mg IV with a dosing interval of q12h. The next vancomycin trough and peak for AUC monitoring will be ordered for around the 4th total dose of the new regimen, unless clinically indicated sooner. Please see electronic record for orders. Pharmacy Dosing Service to follow serum concentrations and adjust as needed based on the patient's clinical status. Thank you for consulting. Nilay Amador PharmD * Isiah Felix DO - 02/08/2025 3:10 PM EDT Images from the original note were not included. Division of Infectious Diseases Progress note Academic Team Our team prefers to use [employer] for communication during business hours (8 AM - 5 PM). We make every effort to keep the Treatment Team in [employer] updated. If I do not respond within 30 minutes, please call the answering service. From 5 PM - 8 AM, please call our answering service at [phone] to speak to the on-call physician. Patient name: Minnie Cortez Patient Today's Date and Time: 02/08/2025, 3:10 PM Admission Date: 02/04/2025 Impression : Staph hominis bacteremia Acute encephalopathy-improving Acute on chronic hypoxic hypercarbic respiratory failure s/p intubation 02/04 Extubated 02/05, now on 4L NC Paroxysmal atrial fibrillation/flutter with RVR S/P dual-chamber pacemaker 01/28/2025 Hx of CTI RFA ablation 2021 COPD on 3L O2, On azithromycin 3 times weekly TTE grossly no vegetations noted. Study somewhat limited by inability to lay in the left lateral position. Rapid clearance of blood cultures. At this time would continue her on IV vancomycin for two weeks and have her follow up with surveillance blood cultures as an outpatient. Recommendations: Continue IV vancomycin, complete two weeks from negative culture Follow up blood cultures after completing course, would check at two weeks and 4 weeks after coursehas been completed. Ok to place PICC line Subjective Interval History: No overnight events, remains on 4L during the day Objective Physical Examination : BP 155/89 Pulse 67 Temp 36.7 ??C (98 ??F) (Oral) Resp 18 Ht 157.5 cm (5' 2.01 ) Wt 55.5 kg (122 lb 5.7 oz) SpO2 98% BMI 22.37 kg/m?? Temperature Range: Temp: 36.7 ??C (98 ??F) Temp Av.8 ??C (98.3 ??F) Min: 36.7 ??C (98 ??F) Max: 37 ??C (98.6 ??F) General Appearance: Awake, alert, and in no apparent distress Pulmonary/Chest: Clear to auscultation, without wheezes, rales, or rhonchi Cardiovascular: Regular rate and rhythm without murmurs Abdomen: soft, non-tender, without masses or organomegaly; normal bowel sounds Extremities: No cyanosis, clubbing, edema, or effusions. Neurologic: Alert and oriented x 3, Skin: No rash or lesions. No pallor Laboratory data: I have independently reviewed the following labs: Results from last 7 days Lab Units 02/08/25 0202 02/07/25 0911 02/07/25 0217 02/06/25 0201 WBC x10E9/L 6.0 -- 4.0 4.1 HEMOGLOBIN g/dL 9.0* 8.5* 6.8* 7.8* HEMATOCRIT % 27.7* 26.5* 21.4* 24.3* MCV fL 89 -- 92 91 PLATELETS X10E9/L 137* -- 144* 161 NEUTROS ABS MAN 10*3/uL 5.0 -- 3.3 3.8 Results from last 7 days Lab Units 02/08/25 1229 02/08/25 0202 02/07/25 0911 02/07/25 0217 02/06/25 0707 02/06/25 0201 SODIUM mmol/L -- 145 -- 147* -- 148* POTASSIUM mmol/L 4.8 3.8 3.8 3.6 < > 3.4* CHLORIDE mmol/L -- 100 -- 99 -- 96* CO2 mmol/L -- 41* -- 41* -- 44* BUN mg/dL -- 17 -- 23 -- 21 CREATININE mg/dL -- 0.40 -- 0.39* -- 0.50 CALCIUM mg/dL -- 8.1* -- 8.6 -- 8.5 ALK PHOS U/L -- 42 -- 46 -- 53 ALT U/L -- 14 -- 15 -- 19 AST U/L -- 10 -- 10 -- 12 < > = values in this interval not displayed. Results from last 7 days Lab Units 02/04/25 1208 HEMOGLOBIN A1C % 4.8 Results from last 7 days Lab Units 02/04/25 1143 COLOR UA Yellow TURBIDITY Clear SPECIFIC GRAVITY, URINE 1.032 NITRITE UA Negative PH URINE 8.0 LEUKOCYTE ESTERASE Negative PROTEIN Negative KETONES (URINE) Negative UROBILINOGEN <1.1 eu/dL BLOOD Negative Imaging Studies: TTE reviewed Cultures: Microbiology Results Procedure Component Value Units Date/Time Blood culture #1 [[id number]] Collected: 02/05/25 123 Specimen: Blood, Venous Updated: 02/08/251400 CULTURE RESULTS NO GROWTH 3 DAYS Blood culture #2 [[id number]] Collected: 02/05/25 123 Specimen: Blood, Venous Updated: 02/08/251400 CULTURE RESULTS NO GROWTH 3 DAYS Blood culture #1 [[id number]] (Abnormal) (Susceptibility) Collected: 02/04/25 1335 Specimen: Blood, Venous Updated: 02/07/25 0749 CULTURE RESULTS Staphylococcus hominis GRAM STAIN Gram positive cocci in clusters Narrative: Suboptimal volume of blood collected, Results may be affected. Susceptibility Staphylococcus hominis Not Specified Cefazolin Resistant (deduced) Clindamycin >=4.0 Resistant Doxycycline 4.0 Susceptible Oxacillin >=4.0 Resistant Trimethoprim + Sulfamethoxazole 4.0 Resistant Vancomycin 2.0 Susceptible Blood culture #2 [[id number]] (Abnormal) (Susceptibility) Collected: 02/04/25 1335 Specimen: Blood, Venous Updated: 02/07/25 0750 CULTURE RESULTS Staphylococcus hominis GRAM STAIN Gram positive cocci in clusters Narrative: Suboptimal volume of blood collected, Results may be affected. Susceptibility Staphylococcus hominis Not Specified Cefazolin Resistant (deduced) Clindamycin >=4.0 Resistant Doxycycline 4.0 Susceptible Oxacillin >=4.0 Resistant Trimethoprim + Sulfamethoxazole 4.0 Resistant Vancomycin 2.0 Susceptible BLOOD CULTURE IDENTIFICATION PANEL [[id number]] (Abnormal) Collected: 02/04/25 1335 Specimen: Blood, Venous Updated: 02/05/25 1049 Staphylococcus species PCR Detected Lower resp/sputum culture inc gram stain: Patient acquired [[id number]] (Abnormal) Collected: 02/04/25 1147 Specimen: Aspirate from Bronchus Updated: 02/06/25 1355 CULTURE RESULTS Few Mackenzie albicans Rare Non-lactose fermenting gram negative bacilli GRAM STAIN >25 White Blood Cells/LPF 1 to 9 Squamous Epithelial Cells/LPF 0 Ciliated Epithelial Cells/LPF Moderate Gram positive cocci in pairs, chains and clusters Few Gram negative bacilli Few Yeast Narrative: Along with Many Normal Respiratory Teresita. Mrsa Pcr nasal swab [[id number]] (Normal) Collected: 02/04/25 1147 Specimen: Swab from Nostril Updated: 02/04/25 1318 MRSA PCR NASAL Negative Resp Pathogens Panel/SARS CoV-2 [[id number]] (Normal) Collected: 02/04/25 1147 Specimen: Swab from Nasopharynx Updated: 02/04/25 1256 SARS COV 2 BY PCR Not Detected ADENOVIRUS Not Detected CORONAVIRUS 229E Not Detected CORONAVIRUS HKU1 Not Detected CORONAVIRUS NL63 Not Detected CORONAVIRUS OC43 Not Detected HUMAN METAPNEUVIRUS Not Detected RHINO/ENTEROVIRUS Not Detected INFLUENZA A Not Detected INFLUENZA B Not Detected PARAINFLUENZA 1 Not Detected PARAINFLUENZA 2 Not Detected PARAINFLUENZA 3 Not Detected PARAINFLUENZA 4 Not Detected RESP SYNCYTIAL VIRUS Not Detected BORD PARAPERTUSSIS Not Detected BORDETELLA PERTUSSIS Not Detected CHLAM.PNEUMONIAE Not Detected MYCOPLASMA PNEUMONIAE Not Detected Narrative: The [employer] Respiratory Panel 2.1 (RP2.1) is a multiplexed nucleic acid test intended for the simultaneous qualitative detection and differentiation of nucleic acid from multiple viral and bacterial respiratory organisms, including nucleic acid from Severe Acute Respiratory Syndrome Coronavirus 2 (SARS-CoV-2), in nasopharyngeal swabs obtained from individuals suspected of COVID-19 by their healthcare provider. Testing is limited to laboratories certified under the Clinical Laboratory Improvement Amendments of 1988 (CLIA), to perform high complexity or moderate complexity tests. SARS-CoV-2 RNA and nucleic acids from the other respiratory viral and bacterial organisms identified by this test are generally detectable in nasopharyngeal swabs during the acute phase of infection.The detection and identification of specific viral and bacterial nucleic acids from individuals exhibiting signs and/or symptoms of respiratory infection is indicative of the presence of the identified microorganism and aids in the diagnosis of respiratory infection if used in conjunction with other clinical and epidemiological information. Positive results are indicative of the presence of the identified organism, but do not rule out co-infection with other pathogens. The agent(s) detected by the [employer]Fire RP2.1 may not be the definite cause of disease and clinical correlation with patient history and other diagnostic information is necessary to determine patient infection status. Negative results in the setting of a respiratory illness may be due to infection with pathogens notdetected by this test, or lower respiratory tract infection that may not be detected by a nasopharyngeal specimen. Negative results do not preclude SARS-CoV-2 infection and should not be used as the sole basis for patient management decisions. Negative RADHA-CoV-2 results must be combined with clinical observations, patient history and epidemiological information. Negative results for other organisms identified by the test may require additional laboratory testing when evaluating a patient with possible respiratory tract infection. Urine Culture Urine, Indwelling Catheter [[id number]] (Abnormal) Collected: 02/04/25 1143 Specimen: Urine, Indwelling Catheter Updated: 02/06/25 1152 CULTURE RESULTS 10,000-50,000 CFU/mL Mackenzie albicans Medications: atorvastatin, 10 mg, oral, Daily busPIRone, 10 mg, oral, Nightly DULoxetine, 80 mg, oral, Daily fluticasone furoate-vilanteroL, 1 puff, inhalation, Daily furosemide, 20 mg, oral, Daily gabapentin, 300 mg, oral, TID ipratropium-albuteroL, 3 mL, nebulization, Q6H liothyronine, 25 mcg, oral, Daily metoprolol succinate XL, 50 mg, oral, Daily predniSONE, 40 mg, oral, Daily with breakfast sodium chloride, 30 mL, intravenous, Q8H AND sodium chloride, 30 mL, intravenous, PRN AND sodium chloride, 60 mL, intravenous, PRN traZODone, 25 mg, oral, Nightly vancomycin, 750 mg, intravenous, Q12H warfarin, 2.5 mg, oral, Daily This progress note was completed using a voice dub room engineer system. Every effort was made to ensure accuracy; however, inadvertent computerized dub room engineer errors may be present. Thank you for allowing us to participate in the care of this patient. Isiah Felix DO ID Infectious Diseases Pager: I prefer to be contacted via [employer] for non-urgent matters. After hours, please call [phone] to have the on-call physician contacted. * Eve Uribe PharmD - 02/08/2025 1:33 PM EDT Pharmacokinetic Consult - Follow Up Warfarin Dosing Minnie Cortez is a 64 y.o. female for whom pharmacy has been consulted for warfarin dosing and monitoring. Subjective Anticoag Therapy Indication: Cardiac dysrhythmia Target INR: 2 - 3 Current inpatient warfarin regimen: 2.5 mg daily Current Hematologic Labs Results from last 7 days Lab Units 02/08/25 0202 02/07/25 0217 02/06/25 0201 02/05/25 0252 02/04/25 1208 INR 2.3* 2.2* 1.8* 2.8* 3.2* Warfarin Administrations (last 168 hours) Date/Time Action Medication Dose 02/07/25 1631 Given warfarin (COUMADIN) tablet 2.5 mg 2.5 mg Assessment INR currently: therapeutic Drug-drug interactions: prednisone Drug-disease state interactions: none Plan RX Anticoag Warfarin IP dose plan: Continue current warfarin regimen of 2.5 mg daily. Pharmacist will continue to follow patient's clinical progress daily. Eve Uribe PharmD Ext [phone] * Yazmin Rodgers DO - 02/08/2025 7:37 AM EDT Images from the original note were not included. Adult ICU Progress Note [facility] - [facility] Cort[facility] 64 [facility] 1960 [id number] Date of Admission - 02/04/2025 10:58 AM ICU Length of Stay: 3d 20h Interval History Minnie Cortez is a 64 y.o. female with a past medical history of chronic hypercarbic respiratory failure secondary to COPD on 3L O2 (baseline CO2: 60), WILIAN, and paroxysmal A-Fib on Warfarin s/p prior DCCV, CTI RFA ablation with dual-chamber pacemaker placement on previous admission one week ago. Patient was recently hospitalized at [facility] from 02/03 01/30 due to Afib with RVR, and situation was C/B intubation sedation in the ICU due to altered mentation and removing BiPAP machine from progressive unit. Patient was extubated after a couple of days, and had AV node RFA with dual chamber pacemaker placement by electrophysiology and recommended to continue flecainide and metoprolol if converted back to AFib with RVR. Patient was discharged on therapeutic range Coumadin INR 2.8, and was sent toS near [place]. Very little information was received from handoff from [facility], however patient was found unresponsive at SNF and had a GCS score of [address] to the hospital and decreased to 6 which required intubation for protection of airway. Patient was then transferred back to [facility] ICU for concern of decompensation. CT brain without contrast and CT chest abdomen and pelvis with contrast weredone at [place], and only remarkable finding was pleural effusion b/l With ndugo-ogowpas-rnph-left, and some anasarca in the abdomen. Oliveros interrogation of AICD showed no event occurred any time during this morning or afternoon. Electrophysiology was consulted for evaluation as patient is telemet ry showed concerns for NSVT. No further information was known, and patient was intubated and sedated upon arrival. Moving all 4 extremities spontaneously. 02/05/2025: Patient was extubated. Failed swallow bedside swallow test. Warfarin subtherapeutic; initiated on heparin. 02/07: BCx x2 Staphylococcus hominis, continue vancomycin and can discontinue Zosyn per ID. Weaning off Precedex and restarted all anti anxiolytic medications trazodone, Atarax, BuSpar. Subjective Patient seen and evaluated at bedside, overnight patient required 1 unit of packed red blood cell transfusion, and vital signs are stable. Patient had 2/2 BCx Homans, recommendations for ID to get TTE followed by [facility], we will communicate with Cardiology. Concerning for endocarditis. Continue vancomycin Objective Vitals Temp: [36.7 ??C (98.1 ??F)-37 ??C (98.6 ??F)] 36.8 ??C (98.2 ??F) Pulse: [60-75] 60 Resp: [14-25] 15 BP: (110-184)/(66-98) 157/80 FiO2 (%): [36 %-40 %] 40 % SpO2: [98 %-100 %] 100 % O2 Device: Nasal cannula O2 Flow Rate (L/min): [4 L/min-6 L/min] 4 L/min Weight: Admission weight: 57.2 kg (126 lb 1.7 oz) Wt Readings from Last 3 Encounters: 02/08/25 55.5 kg (122 lb 5.7 oz) 01/30/25 57.2 kg (126 lb 1.7 oz) 01/14/25 59 kg (130 lb 1.1 oz) Input/Output: Intake/Output Summary (Last 24 hours) at 02/08/2025 0735 Last data filed at 02/08/2025 0631 Gross per 24 hour Intake 1332.49 ml Output 1310 ml Net 22.49 ml Ventilator: Settings Vent Mode: S/T FiO2 (%): 40 % Resp Rate (Set): 8 Vt (Set, mL): 450 mL Avea Vt (Set, L): 0.45 Liter PEEP/CPAP (cm H2O): 8 cm H20 MAP: 7.5 I:E Ratio: 1:3:9 Insp Time (sec): 1 sec Insp Rise Time (%): 3 % Trigger Sensitivity Pressure (cm H2O): 1 cm H2O IPAP: 12 EPAP: 6 Humidification: Heat and moisture exchanger Physical Exam Constitutional: General: She is awake. She is not in acute distress. Appearance: Normal appearance. Interventions: Face mask in place. HENT: Head: Normocephalic and atraumatic. Eyes: General: No scleral icterus. Conjunctiva/sclera: Conjunctivae normal. Pupils: Pupils are equal, round, and reactive to light. Cardiovascular: Rate and Rhythm: Normal rate and regular rhythm. Pulses: Normal pulses. Heart sounds: Normal heart sounds. Pulmonary: Effort: Prolonged expiration present. No respiratory distress. Comments: Globally decreased breath sounds bilaterally. On BiPAP Abdominal: General: Bowel sounds are normal. There is no distension. Tenderness: There is no abdominal tenderness. There is no guarding or rebound. Musculoskeletal: General: No swelling or tenderness. Cervical back: Normal range of motion and neck supple. Right lower leg: No edema. Left lower leg: No edema. Skin: Coloration: Skin is not jaundiced or pale. Neurological: General: No focal deficit present. Mental Status: She is alert. Mental status is at baseline. She is disoriented. Cranial Nerves: No cranial nerve deficit. Motor: Tremor present. Comments: Precedex on. Following commands. Psychiatric: Mood and Affect: Mood normal. Behavior: Behavior normal. Behavior is cooperative. Lab Results Results from last 7 days Lab Units 02/08/25 0202 02/07/25 0911 02/07/25 0217 02/06/25 0201 WBC x10E9/L 6.0 -- 4.0 4.1 HEMOGLOBIN g/dL 9.0* 8.5* 6.8* 7.8* HEMATOCRIT % 27.7* 26.5* 21.4* 24.3* PLATELETS X10E9/L 137* -- 144* 161 Results from last 7 days Lab Units 02/08/25 0202 02/07/25 0217 02/06/25 0201 APTT sec -- -- INR 2.3* 2.2* 1.8* Results from last 7 days Lab Units 02/08/25 0202 02/07/25 0911 02/07/25 0217 02/06/25 0707 02/06/25 0201 SODIUM mmol/L 145 -- 147* -- 148* POTASSIUM mmol/L 3.8 3.8 3.6 < > 3.4* CHLORIDE mmol/L 100 -- 99 -- 96* CO2 mmol/L 41* -- 41* -- 44* BUN mg/dL 17 -- 23 -- 21 CREATININE mg/dL 0.40 -- 0.39* -- 0.50 CALCIUM mg/dL 8.1* -- 8.6 -- 8.5 PHOSPHORUS mg/dL 3.2 -- 3.3 -- 4.6 MAGNESIUM mg/dL 1.9 -- 2.0 -- 2.0 < > = values in this interval not displayed. Results from last 7 days Lab Units 02/08/25 0202 02/07/25 0217 02/06/25 0201 ALBUMIN g/dL 3.3 3.2 3.3 PROTEIN TOTAL g/dL 5.0* 4.9* 5.4* ALT U/L 14 15 19 AST U/L 10 10 12 ALK PHOS U/L 42 46 53 Results from last 7 days Lab Units 02/08/25 0202 02/07/25 0217 02/06/25 0201 GLUCOSE mg/dL 88 98 152* Lab Results Component Value Date HGBA1C 4.8 02/04/2025 Results from last 7 days Lab Units 02/05/25 1011 02/04/25 1755 02/04/25 1208 TROPONIN I HS ng/L -- 81* 96* BNP pg/mL 169* -- 302* Results from last 7 days Lab Units 02/04/25 1208 VITAMIN B 12 pg/mL 200 FOLATE ng/mL 12.0 FERRITIN ng/mL 90 IRON ug/dL 34* IRON BINDING CAPACITY ug/dL 301 IRON SATURATION % SATURATION 11* Lab Results Component Value Date SPECIFICGRA 1.032 02/04/2025 LEUKOCYTE Negative 02/04/2025 UROBILINOGEN <1.1 eu/dL 02/04/2025 Radiology Fluoroscopy swallow motility function Result Date: 02/07/2025 CLINICAL INFORMATION: Oropharyngeal dysphagia. TECHNIQUE: Lateral videofluoroscopy during oral administration of one or more radiopaque diet consistencies. Reference air kerma: 1.2 mGy. COMPARISON: 01/26/2025. FINDINGS: Drinks Thin: Penetration. Mildly thick: No aspiration or penetration. Food Applesauce: No aspiration or penetration. Fruit: No aspiration or penetration. Cracker: No aspiration or penetration. IMPRESSION: * Penetration of thin liquid consistency. * Exam completed in conjunction with speech pathology. See speech pathology report in [facility] progress notes for details and recommendations. Approved by Resident Mathieu Jones DO on 02/07/2025 8:58 AM Manuel Mclean MD have personallyreviewed the image(s) and agree with and/or edited the report Finalized by Manuel Fung MD on 02/07/2025 8:58 AM Cultures Microbiology Results Procedure Component Value Units Date/Time Blood culture #1 [[id number]] Collected: 02/05/25 1231 Specimen: Blood, Venous Updated: 02/07/25 1401 CULTURE RESULTS NO GROWTH 2 DAYS Blood culture #2 [[id number]] Collected: 02/05/25 1231 Specimen: Blood, Venous Updated: 02/07/25 1401 CULTURE RESULTS NO GROWTH 2 DAYS Blood culture #1 [[id number]] (Abnormal) (Susceptibility) Collected: 02/04/25 1335 Specimen: Blood, Venous Updated: 02/07/25 0749 CULTURE RESULTS Staphylococcus hominis GRAM STAIN Gram positive cocci in clusters Narrative: Suboptimal volume of blood collected, Results may be affected. Susceptibility Staphylococcus hominis Not Specified Cefazolin Resistant (deduced) Clindamycin >=4.0 Resistant Doxycycline 4.0 Susceptible Oxacillin >=4.0 Resistant Trimethoprim + Sulfamethoxazole 4.0 Resistant Vancomycin 2.0 Susceptible Blood culture #2 [[id number]] (Abnormal) (Susceptibility) Collected: 02/04/25 1335 Specimen: Blood, Venous Updated: 02/07/25 0750 CULTURE RESULTS Staphylococcus hominis GRAM STAIN Gram positive cocci in clusters Narrative: Suboptimal volume of blood collected, Results may be affected. Susceptibility Staphylococcus hominis Not Specified Cefazolin Resistant (deduced) Clindamycin >=4.0 Resistant Doxycycline 4.0 Susceptible Oxacillin >=4.0 Resistant Trimethoprim + Sulfamethoxazole 4.0 Resistant Vancomycin 2.0 Susceptible BLOOD CULTURE IDENTIFICATION PANEL [[id number]] (Abnormal) Collected: 02/04/25 1335 Specimen: Blood, Venous Updated: 02/05/25 1049 Staphylococcus species PCR Detected Lower resp/sputum culture inc gram stain: Patient acquired [[id number]] (Abnormal) Collected: 02/04/25 1147 Specimen: Aspirate from Bronchus Updated: 02/06/25 1355 CULTURE RESULTS Few Mackenzie albicans Rare Non-lactose fermenting gram negative bacilli GRAM STAIN >25 White Blood Cells/LPF 1 to 9 Squamous Epithelial Cells/LPF 0 Ciliated Epithelial Cells/LPF Moderate Gram positive cocci in pairs, chains and clusters Few Gram negative bacilli Few Yeast Narrative: Along with Many Normal Respiratory Teresita. Mrsa Pcr nasal swab [[id number]] (Normal) Collected: 02/04/25 1147 Specimen: Swab from Nostril Updated: 02/04/25 1318 MRSA PCR NASAL Negative Resp Pathogens Panel/SARS CoV-2 [[id number]] (Normal) Collected: 02/04/25 1147 Specimen: Swab from Nasopharynx Updated: 02/04/25 1256 SARS COV 2 BY PCR Not Detected ADENOVIRUS Not Detected CORONAVIRUS 229E Not Detected CORONAVIRUS HKU1 Not Detected CORONAVIRUS NL63 Not Detected CORONAVIRUS OC43 Not Detected HUMAN METAPNEUVIRUS Not Detected RHINO/ENTEROVIRUS Not Detected INFLUENZA A Not Detected INFLUENZA B Not Detected PARAINFLUENZA 1 Not Detected PARAINFLUENZA 2 Not Detected PARAINFLUENZA 3 Not Detected PARAINFLUENZA 4 Not Detected RESP SYNCYTIAL VIRUS Not Detected BORD PARAPERTUSSIS Not Detected BORDETELLA PERTUSSIS Not Detected CHLAM.PNEUMONIAE Not Detected MYCOPLASMA PNEUMONIAE Not Detected Narrative: The [employer] Respiratory Panel 2.1 (RP2.1) is a multiplexed nucleic acid test intended for the simultaneous qualitative detection and differentiation of nucleic acid from multiple viral and bacterial respiratory organisms, including nucleic acid from Severe Acute Respiratory Syndrome Coronavirus 2 (SARS-CoV-2), in nasopharyngeal swabs obtained from individuals suspected of COVID-19 by their healthcare provider. Testing is limited to laboratories certified under the Clinical Laboratory Improvement Amendments of 1988 (CLIA), to perform high complexity or moderate complexity tests. SARS-CoV-2 RNA and nucleic acids from the other respiratory viral and bacterial organisms identified by this test are generally detectable in nasopharyngeal swabs during the acute phase of infection.The detection and identification of specific viral and bacterial nucleic acids from individuals exhibiting signs and/or symptoms of respiratory infection is indicative of the presence of the identified microorganism and aids in the diagnosis of respiratory infection if used in conjunction with other clinical and epidemiological information. Positive results are indicative of the presence of the identified organism, but do not rule out co-infection with other pathogens. The agent(s) detected by the [employer] RP2.1 may not be the definite cause of disease and clinical correlation with patient history and other diagnostic information is necessary to determine patient infection status. Negative results in the setting of a respiratory illness may be due to infection with pathogens notdetected by this test, or lower respiratory tract infection that may not be detected by a nasopharyngeal specimen. Negative results do not preclude SARS-CoV-2 infection and should not be used as the sole basis for patient management decisions. Negative RADHA-CoV-2 results must be combined with clinical observations, patient history and epidemiological information. Negative results for other organisms identified by the test may require additional laboratory testing when evaluating a patient with possible respiratory tract infection. Urine Culture Urine, Indwelling Catheter [[id number]] (Abnormal) Collected: 02/04/25 1143 Specimen: Urine, Indwelling Catheter Updated: 02/06/25 1152 CULTURE RESULTS 10,000-50,000 CFU/mL Mackenzie albicans Medications Scheduled: atorvastatin, 10 mg, oral, Daily busPIRone, 10 mg, oral, Nightly DULoxetine, 80 mg, oral, Daily furosemide, 20 mg, oral, Daily gabapentin, 300 mg, oral, TID ipratropium-albuteroL, 3 mL, nebulization, Q6H liothyronine, 25 mcg, oral, Daily metoprolol succinate XL, 50 mg, oral, Daily pantoprazole, 40 mg, intravenous, QAM AC predniSONE, 40 mg, oral, Daily with breakfast sodium chloride, 30 mL, intravenous, Q8H AND sodium chloride, 30 mL, intravenous, PRN AND sodium chloride, 60 mL, intravenous, PRN traZODone, 25 mg, oral, Nightly vancomycin, 750 mg, intravenous, Q12H warfarin, 2.5 mg, oral, Daily Infusions: dexmedeTOMIDine, 0.2-1 mcg/kg/hr, Last Rate: Stopped (02/07/25 1251) heparin, 300-3,500 Units/hr, Last Rate: 1,050 Units/hr (02/08/25 0631) sodium chloride 0.9 %, 10 mL/hr sodium chloride 0.9 %, 10 mL/hr sodium chloride 0.9 %, 10 mL/hr sodium chloride 0.9 %, 20 mL/hr As Needed: acetaminophen albuterol calcium gluconate OR calcium gluconate OR calcium gluconate dextrose dextrose 50 % in water (D50W) glucagon (human recombinant) guaiFENesin heparin (porcine) hydrALAZINE hydrOXYzine magnesium sulfate OR magnesium sulfate potassium chloride OR potassium chloride potassium chloride in water OR potassium chloride in water sodium phosphate IV OR sodium phosphate IV - central line OR sod phos di, mono-K phos mono sodium chloride AND sodium chloride AND sodium chloride sodium chloride 0.9 % sodium chloride 0.9 % sodium chloride 0.9 % sodium chloride 0.9 % Assessment MDRO Staphylococcus Hominis Sepsis, likely dual-chamber pacemaker placement source BCx 10/17 showing Staphylococcus hominis with multiple resistance genes collected on 02/04 Repeat BCx x2 collected 02/05 NGTD x2 days Acute septic encephalopathy, resolved GCS of 6 requiring intubation for airway protection Acute on chronic hypoxic hypercarbic respiratory failure s/p Intubation 02/04- 02/05, improving Baseline pCO2 approx 60-[address] chest w/ contrast (02/04) showed right greater than left b/l pleural effusions Paroxysmal atrial fibrillation/flutter with RVR s/p CTI RFA ablation 2021, AV node ablation and dual-chamber pacemaker placement 01/28/25 Oliveros interrogation of dual-chamber pacemaker resulted with no events in the past 24 hours - 02/05/25 EP consultation 02/04/25: discontinue flecanide, metoprolol, recommend anticoagulation with warfarin Shock, most likely septic in setting of pneumonia and bacteremia, resolved Vasopressors off as of 02/06/25 COPD on 3L O2, on Azithromycin 3 times weekly Normocytic anemia Hypothyroidism WILIAN Plan Pending echocardiogram, and likely [facility]CO soon after Continue nasal cannula when appropriate Follow-up daily ABG Continue Lasix home dose 20 mg oral Continue DuoNebs Continue prednisone 40 mg daily Continue heparin infusion and warfarin to maintain INR of 2-3 Consider infectious disease consultation pending blood culture speciation Continue Vancomycin for now Remove indwelling catheters Continue monitoring and replete electrolytes per ICU protocol Continue home medications as appropriate (BuSpar 10 mg nightly, gabapentin 300 mg TID, trazodone 25mg nightly, Cymbalta 80 mg daily) Vent Settings: Settings Vent Mode: S/T FiO2 (%): 40 % Resp Rate (Set): 8 Vt (Set, mL): 450 mL Avea Vt (Set, L): 0.45 Liter PEEP/CPAP (cm H2O): 8 cm H20 MAP: 7.5 I:E Ratio: 1:3:9 Insp Time (sec): 1 sec Insp Rise Time (%): 3 % Trigger Sensitivity Pressure (cm H2O): 1 cm H2O IPAP: 12 EPAP: 6 Humidification: Heat and moisture exchanger Last AB.47/60.1/100/44.1 on 02/06 Fluids: None Pressor support: none Lines (location & placement): Right brachial arterial line, right IJ CVC, left pIV Burr/PEG/Drains: urinary catheter DVT prophylaxis: Heparin infusion GI prophylaxis: Pantoprazole 40 mg IV daily Wounds: Left chest from dual-chamber pacemaker placement Diet: NPO Code Status: Full code This progress note was completed using a voice dub room engineer system. Every effort was made to ensure accuracy. However, inadvertent computerized dub room engineer errors may be present. -------- Yazmin Rodgers DO Internal Medicine Resident 7:37 AM 02/08/25 Cosigned by Alejo Villalobos MD at 02/09/2025 3:47 PM EDT Associated attestation - Alejo Villalobos MD - 02/09/2025 3:47 PM EDT I discussed the patient with the resident team on the day of the encounter and agree with documentation as above. Please note there may be additional personal documentation from me 64 year old female with past medical history of COPD, WILIAN and Afib on coumadin presented due to altered mental status. She required intubation and MV. CT chest showed bilateral pleural effusion. ABG showed metabolic alkalosis. Se was started on empiric antibiotics and steroids. Cardiology consultedfor concerns for Non sustained VT and device interrogation. Central line and A line were placed. Patient was not extubated nasal cannula. She was continued on Zosyn and vancomycin, Infectious Diseasewas consulted. IV methylprednisone was deescalated to oral prednisone. Alejo Villalobos MD Pulmonary and critical care [facility] * Arash Kelsey, [facility] - 02/07/2025 5:45 PM EDT Images from the original note were not included. Pharmacokinetic Consult - Vancomycin Dosing Minnie Cortez is a 64 y.o. female for whom pharmacy has been consulted for vancomycin dosing for bacteremia. Today is day 4 of vancomycin therapy. Relevant clinical data and objective history reviewed: Allergies: Lyrica [pregabalin], Zonisamide, and Nickel Results from last 3 days Lab Units 02/07/25 0911 02/07/25 0217 02/06/25 0201 02/05/25 0252 CREATININE mg/dL -- 0.39* 0.50 0.55 BUN mg/dL -- 23 21 17 WBC x10E9/L -- 4.0 4.1 11.3* HEMOGLOBIN g/dL 8.5* 6.8* 7.8* 7.6* HEMATOCRIT % 26.5* 21.4* 24.3* 24.0* MCV fL -- 92 91 91 Temp Readings from Last 3 Encounters: 02/07/25 36.7 ??C (98.1 ??F) (Oral) 01/30/25 36.9 ??C (98.4 ??F) (Oral) 01/14/25 36.4 ??C (97.5 ??F) (Oral) Renal Parameters: I/O last 3 completed shifts: In: 1922.8 [I.V.:920.8; IV Piggyback:1002] Out: 2345 [Urine:2345] Calculated CrCl (IBW): 114 mL/min Culture Data: Microbiology Results Procedure Component Value Units Date/Time Blood culture #1 [[id number]] Collected: 02/05/25 1231 Specimen: Blood, Venous Updated: 02/07/25 1401 CULTURE RESULTS NO GROWTH 2 DAYS Blood culture #2 [[id number]] Collected: 02/05/25 1231 Specimen: Blood, Venous Updated: 02/07/25 1401 CULTURE RESULTS NO GROWTH 2 DAYS Blood culture #1 [[id number]] (Abnormal) (Susceptibility) Collected: 02/04/25 1335 Specimen: Blood, Venous Updated: 02/07/25 0749 CULTURE RESULTS Staphylococcus hominis GRAM STAIN Gram positive cocci in clusters Narrative: Suboptimal volume of blood collected, Results may be affected. Susceptibility Staphylococcus hominis Not Specified Cefazolin Resistant (deduced) Clindamycin >=4.0 Resistant Doxycycline 4.0 Susceptible Oxacillin >=4.0 Resistant Trimethoprim + Sulfamethoxazole 4.0 Resistant Vancomycin 2.0 Susceptible Blood culture #2 [[id number]] (Abnormal) (Susceptibility) Collected: 02/04/25 1335 Specimen: Blood, Venous Updated: 02/07/25 0750 CULTURE RESULTS Staphylococcus hominis GRAM STAIN Gram positive cocci in clusters Narrative: Suboptimal volume of blood collected, Results may be affected. Susceptibility Staphylococcus hominis Not Specified Cefazolin Resistant (deduced) Clindamycin >=4.0 Resistant Doxycycline 4.0 Susceptible Oxacillin >=4.0 Resistant Trimethoprim + Sulfamethoxazole 4.0 Resistant Vancomycin 2.0 Susceptible BLOOD CULTURE IDENTIFICATION PANEL [[id number]] (Abnormal) Collected: 02/04/25 1335 Specimen: Blood, Venous Updated: 02/05/25 1049 Staphylococcus species PCR Detected Lower resp/sputum culture inc gram stain: Patient acquired [[id number]] (Abnormal) Collected: 02/04/25 1147 Specimen: Aspirate from Bronchus Updated: 02/06/25 1355 CULTURE RESULTS Few Mackenzie albicans Rare Non-lactose fermenting gram negative bacilli GRAM STAIN >25 White Blood Cells/LPF 1 to 9 Squamous Epithelial Cells/LPF 0 Ciliated Epithelial Cells/LPF Moderate Gram positive cocci in pairs, chains and clusters Few Gram negative bacilli Few Yeast Narrative: Along with Many Normal Respiratory Teresita. Mrsa Pcr nasal swab [[id number]] (Normal) Collected: 02/04/25 1147 Specimen: Swab from Nostril Updated: 02/04/25 1318 MRSA PCR NASAL Negative Resp Pathogens Panel/SARS CoV-2 [[id number]] (Normal) Collected: 02/04/25 1147 Specimen: Swab from Nasopharynx Updated: 02/04/25 1256 SARS COV 2 BY PCR Not Detected ADENOVIRUS Not Detected CORONAVIRUS 229E Not Detected CORONAVIRUS HKU1 Not Detected CORONAVIRUS NL63 Not Detected CORONAVIRUS OC43 Not Detected HUMAN METAPNEUVIRUS Not Detected RHINO/ENTEROVIRUS Not Detected INFLUENZA A Not Detected INFLUENZA B Not Detected PARAINFLUENZA 1 Not Detected PARAINFLUENZA 2 Not Detected PARAINFLUENZA 3 Not Detected PARAINFLUENZA 4 Not Detected RESP SYNCYTIAL VIRUS Not Detected BORD PARAPERTUSSIS Not Detected BORDETELLA PERTUSSIS Not Detected CHLAM.PNEUMONIAE Not Detected MYCOPLASMA PNEUMONIAE Not Detected Narrative: The [employer] Respiratory Panel 2.1 (RP2.1) is a multiplexed nucleic acid test intended for the simultaneous qualitative detection and differentiation of nucleic acid from multiple viral and bacterial respiratory organisms, including nucleic acid from Severe Acute Respiratory Syndrome Coronavirus 2 (SARS-CoV-2), in nasopharyngeal swabs obtained from individuals suspected of COVID-19 by their healthcare provider. Testing is limited to laboratories certified under the Clinical Laboratory Improvement Amendments of 1988 (CLIA), to perform high complexity or moderate complexity tests. SARS-CoV-2 RNA and nucleic acids from the other respiratory viral and bacterial organisms identified by this test are generally detectable in nasopharyngeal swabs during the acute phase of infection.The detection and identification of specific viral and bacterial nucleic acids from individuals exhibiting signs and/or symptoms of respiratory infection is indicative of the presence of the identified microorganism and aids in the diagnosis of respiratory infection if used in conjunction with other clinical and epidemiological information. Positive results are indicative of the presence of the identified organism, but do not rule out co-infection with other pathogens. The agent(s) detected by the BioFire RP2.1 may not be the definite cause of disease and clinical correlation with patient history and other diagnostic information is necessary to determine patient infection status. Negative results in the setting of a respiratory illness may be due to infection with pathogens notdetected by this test, or lower respiratory tract infection that may not be detected by a nasopharyngeal specimen. Negative results do not preclude SARS-CoV-2 infection and should not be used as the sole basis for patient management decisions. Negative RADHA-CoV-2 results must be combined with clinical observations, patient history and epidemiological information. Negative results for other organisms identified by the test may require additional laboratory testing when evaluating a patient with possible respiratory tract infection. Urine Culture Urine, Indwelling Catheter [[id number]] (Abnormal) Collected: 02/04/25 1143 Specimen: Urine, Indwelling Catheter Updated: 02/06/25 1152 CULTURE RESULTS 10,000-50,000 CFU/mL Mackenzie albicans Concurrent Antibiotics: Anti-infectives (From admission, onward) Start Dose/Rate Route Frequency Ordered Stop 02/08/25 0200 vancomycin (VANCOCIN) 750 mg in sodium chloride 0.9 % 250 mL IVPB W/ADAPTER 750 mg 250 mL/hr over 60 Minutes intravenous Every 12 hours 02/07/25 1740 Recent Vancomycin Serum Concentrations: Results from last 7 days Lab Units 02/07/25 1633 02/07/25 1142 VANCOMYCIN PEAK ug/mL 17.8* -- VANCOMYCIN TROUGH ug/mL -- 5.4 Indication: bacteremia Goal Vancomycin Range: AUC 400-600 mcg*hr/mL Assessment . Patient is currently ordered vancomycin 750 mg IV with a dosing interval of every 24 hours. Todayis day 4th of therapy. ?? Renal function assessment: Stable ?? The most recent vancomycin trough was 5.4 mcg/mL collected at 1142 . This is a 23 hour level on the 4th day of therapy. This represents a true trough, The most recent vancomycin peak was 17.8 mcg/mL collected at 1633 on 02/07, 2.5 hours following the end of the vancomycin infusion. Of note, the peak was collected appropriately, and The calculated vancomycin AUC for this dosing regimen is 258 mcg*hr/mL. This is a Subtherapeutic AUC. ?? Patient-specific risk-factors for nephrotoxicity include: advanced age. Plan ?? Will increase vancomycin to 750 mg IV with a dosing interval of every 12 hours ?? The next vancomycin trough and peak for AUC monitoring will be ordered for 02/09, unless clinically indicated sooner ?? Please see electronic record for orders Pharmacy Dosing Service to follow serum concentrations and adjust as needed based on the patient's clinical status. Thank you for consulting. Arash Kelsey PharmD, [facility] * Raj Wilkes PharmD - 02/07/2025 2:25 PM EDT Pharmacokinetic Consult - Follow Up Warfarin Dosing Minnie Cortez is a 64 y.o. female for whom pharmacy has been consulted for warfarin dosing and monitoring. Subjective Indication for treatment:afib Goal INR: 2-3 Current inpatient warfarin regimen: none, being held 2/2 NPO status. Current Hematologic Labs Results from last 7 days Lab Units 02/07/25 0217 02/06/25 0201 02/05/25 0252 02/04/25 1208 INR 2.2* 1.8* 2.8* 3.2* Warfarin Administrations (last 168 hours) None Assessment INR currently: therapeutic but has not been given any warfarin since admission. Heparin gtt startedyesterday for subtherapeutic INR. Drug-drug interactions: zosyn Other pertinent information: heparin bridge Plan Patient passed video swallow and was started on level 2 midly thick liquids + reg diet. Warfarin held yesterday. INR uptrending (unclear reason) today despite warfarin being held due to NPO status. Therefore, will start with smaller dose. Give warfarin 2.5 mg. Pharmacist will continue to follow patient's clinical progress daily. Raj Wilkes PharmD Ext [phone] * Yazmin Rodgers DO - 02/07/2025 8:28 AM EDT Images from the original note were not included. Adult ICU Progress Note Patient - Minnie Cortez Age - 64 y.o. - 1960 [facility] # - [id number] Date of Admission - 02/04/2025 10:58 AM ICU Length of Stay: 2d 21h Interval History Minnie Cortez is a 64 y.o. female with a past medical history of chronic hypercarbic respiratory failure secondary to COPD on 3L O2 (baseline CO2: 60), WILIAN, and paroxysmal A-Fib on Warfarin s/p prior DCCV, CTI RFA ablation with dual-chamber pacemaker placement on previous admission one week ago. Patient was recently hospitalized at [facility] from 02/03 01/30 due to Afib with RVR, and situation was C/B intubation sedation in the ICU due to altered mentation and removing BiPAP machine from progressive unit. Patient was extubated after a couple of days, and had AV node RFA with dual chamber pacemaker placement by electrophysiology and recommended to continue flecainide and metoprolol if converted back to AFib with RVR. Patient was discharged on therapeutic range Coumadin INR 2.8, and was sent toS near [place]. Very little information was received from handoff from [facility], however patient was found unresponsive at SNF and had a GCS score of [address] to the hospital and decreased to 6 which required intubation for protection of airway. Patient was then transferred back to [facility] ICU for concern of decompensation. CT brain without contrast and CT chest abdomen and pelvis with contrast weredone at [place], and only remarkable finding was pleural effusion b/l With [id number]-[id number]-left, and some anasarca in the abdomen. Oliveros interrogation of AICD showed no event occurred any time during this morning or afternoon. Electrophysiology was consulted for evaluation as patient is telemet ry showed concerns for NSVT. No further information was known, and patient was intubated and sedated upon arrival. Moving all 4 extremities spontaneously. 02/05/2025: Patient was extubated. Failed swallow bedside swallow test. Warfarin subtherapeutic; initiated on heparin. 02/07: BCx x2 Staphylococcus hominis, continue vancomycin and can discontinue Zosyn per ID. Weaning off Precedex and restarted all anti anxiolytic medications trazodone, Atarax, BuSpar. Subjective Patient seen and evaluated at bedside, overnight patient required 1 unit of packed red blood cell transfusion, and vital signs are stable. Patient had 2/2 BCx Homans, recommendations for ID to get TTE followed by JUAN FRANCISCO, we will communicate with Cardiology. Concerning for endocarditis. Continue vancomycin Objective Vitals Temp: [36.2 ??C (97.2 ??F)-37.1 ??C (98.7 ??F)] 36.7 ??C (98.1 ??F) Pulse: [70-93] 75 Resp: [12-] 22 BP: (121-162)/(47-97) 141/66 Arterial Line BP: (158-172)/(70-74) 172/74 FiO2 (%): [40 %] 40 % SpO2: [89 %-100 %] 100 % O2 Device: Nasal cannula O2 Flow Rate (L/min): [6 L/min] 6 L/min Weight: Admission weight: 57.2 kg (126 lb 1.7 oz) Wt Readings from Last 3 Encounters: 02/06/25 55 kg (121 lb 4.1 oz) 01/30/25 57.2 kg (126 lb 1.7 oz) 01/14/25 59 kg (130 lb 1.1 oz) Input/Output: Intake/Output Summary (Last 24 hours) at 02/07/2025 0829 Last data filed at 02/07/2025 0714 Gross per 24 hour Intake 1712.95 ml Output 688 ml Net 1024.95 ml Ventilator: Settings Vent Mode: S/T FiO2 (%): 40 % Resp Rate (Set): 8 Vt (Set, mL): 450 mL Avea Vt (Set, L): 0.45 Liter PEEP/CPAP (cm H2O): 8 cm H20 Insp Time (sec): 1 sec Insp Rise Time (%): 3 % Trigger Sensitivity Pressure (cm H2O): 1 cm H2O IPAP: 12 EPAP: 8 Humidification: Heat and moisture exchanger Physical Exam Constitutional: General: She is awake. She is not in acute distress. Appearance: Normal appearance. Interventions: Face mask in place. HENT: Head: Normocephalic and atraumatic. Eyes: General: No scleral icterus. Conjunctiva/sclera: Conjunctivae normal. Pupils: Pupils are equal, round, and reactive to light. Cardiovascular: Rate and Rhythm: Normal rate and regular rhythm. Pulses: Normal pulses. Heart sounds: Normal heart sounds. Pulmonary: Effort: Prolonged expiration present. No respiratory distress. Comments: Globally decreased breath sounds bilaterally. On BiPAP Abdominal: General: Bowel sounds are normal. There is no distension. Tenderness: There is no abdominal tenderness. There is no guarding or rebound. Musculoskeletal: General: No swelling or tenderness. Cervical back: Normal range of motion and neck supple. Right lower leg: No edema. Left lower leg: No edema. Skin: Coloration: Skin is not jaundiced or pale. Neurological: General: No focal deficit present. Mental Status: She is alert. Mental status is at baseline. She is disoriented. Cranial Nerves: No cranial nerve deficit. Motor: Tremor present. Comments: Precedex on. Following commands. Psychiatric: Mood and Affect: Mood normal. Behavior: Behavior normal. Behavior is cooperative. Lab Results Results from last 7 days Lab Units 02/07/25 02102/06/25 02002/05/25 0252 WBC x10E9/L 4.0 4.1 11.3* HEMOGLOBIN g/dL 6.8* 7.8* 7.6* HEMATOCRIT % 21.4* 24.3* 24.0* PLATELETS X10E9/L 144* 161 251 Results from last 7 days Lab Units 02/07/25 02102/06/25 0201 02/05/25 0252 APTT sec -- -- INR 2.2* 1.8* 2.8* Results from last 7 days Lab Units 02/07/25 0217 02/06/25 1115 02/06/25 0707 02/06/25 0201 02/05/25 0801 02/05/25 0252 SODIUM mmol/L 147* -- -- 148* -- 145 POTASSIUM mmol/L 3.6 4.0 3.6 3.4* < > 3.6 CHLORIDE mmol/L 99 -- -- 96* -- 94* CO2 mmol/L 41* -- -- 44* -- 43* BUN mg/dL 23 -- -- 21 -- 17 CREATININE mg/dL 0.39* -- -- 0.50 -- 0.55 CALCIUM mg/dL 8.6 -- -- 8.5 -- 8.6 PHOSPHORUS mg/dL 3.3 -- -- 4.6 -- 3.4 MAGNESIUM mg/dL 2.0 -- -- 2.0 -- 2.6 < > = values in this interval not displayed. Results from last 7 days Lab Units 02/07/25 0217 02/06/25 0201 02/05/25 0252 ALBUMIN g/dL 3.2 3.3 3.2 PROTEIN TOTAL g/dL 4.9* 5.4* 5.1* ALT U/L 15 19 23 AST U/L 10 12 15 ALK PHOS U/L 46 53 55 Results from last 7 days Lab Units 02/07/25 0217 02/06/25 0201 02/05/25 0252 GLUCOSE mg/dL 98 152* 135* Lab Results Component Value Date HGBA1C 4.8 02/04/2025 Results from last 7 days Lab Units 02/05/25 1011 02/04/25 1755 02/04/25 1208 TROPONIN I HS ng/L -- 81* 96* BNP pg/mL 169* -- 302* Results from last 7 days Lab Units 02/04/25 1208 VITAMIN B 12 pg/mL 200 FOLATE ng/mL 12.0 FERRITIN ng/mL 90 IRON ug/dL 34* IRON BINDING CAPACITY ug/dL 301 IRON SATURATION % SATURATION 11* Lab Results Component Value Date SPECIFICGRA 1.032 02/04/2025 LEUKOCYTE Negative 02/04/2025 UROBILINOGEN <1.1 eu/dL 02/04/2025 Radiology X-ray chest 1 view Result Date: 02/05/2025 CLINICAL INFORMATION: Shortness of breath, difficulty breathing. TECHNIQUE: Chest radiograph, single AP view. COMPARISON: 02/04/2025. FINDINGS Endotracheal tube and right IJ catheter in similar position. Enteric tube sidehole projects over the stomach. Cardiomediastinal silhouette is unchanged. No pneumothorax. Small bilateral pleural effusions. Mild central pulmonary vascular congestion, similar to prior. IMPRESSION: * No significant interval change. Approved by Resident Mathieu Jones DO on 02/05/2025 7:12 AM Manuel Mclean have personally reviewed the image(s) and agree with and/or edited the report Finalized by Manuel Milligan on 02/05/2025 8:00 AM X-ray chest 1 view Result Date: 02/04/2025 Chest radiograph dated: 02/04/2025. Reason for study: new line cvc. Comparison studies: Chest x-ray from 01/28/2025. Technique: Portable upright chest view AP. Findings/impression: 1. Endotracheal tubedistal tip is approximately 3.5 cm from the diane. Right central venous catheter with the distal tip at the central right brachiocephalic vein. Enteric tube is seen coursing below the level of the diaphragm with the distal tip not seen. 2. Nonenlarged cardiomediastinal silhouette. Possible trace interstitial edema more pronounced on the right. 3. Small bilateral pleural effusions. Scant bibasilar airspace opacities which may relate to subsegmental atelectatic change versus developing pneumoniain the appropriate clinical setting. Minimally improved aeration of right lung base. 4. No definitive pneumothorax. Finalized by Aden Ellsworth MD on 02/04/2025 1:21 PM Cultures Microbiology Results Procedure Component Value Units Date/Time Blood culture #1 [[id number]] Collected: 02/05/25 1231 Specimen: Blood, Venous Updated: 02/07/25 0201 CULTURE RESULTS NO GROWTH AT 36 HOURS Blood culture #2 [[id number]] Collected: 02/05/25 1231 Specimen: Blood, Venous Updated: 02/07/25 0201 CULTURE RESULTS NO GROWTH AT 36 HOURS Blood culture #1 [[id number]] (Abnormal) (Susceptibility) Collected: 02/04/25 1335 Specimen: Blood, Venous Updated: 02/07/25 0749 CULTURE RESULTS Staphylococcus hominis GRAM STAIN Gram positive cocci in clusters Narrative: Suboptimal volume of blood collected, Results may be affected. Susceptibility Staphylococcus hominis Not Specified Cefazolin Resistant (deduced) Clindamycin >=4.0 Resistant Doxycycline 4.0 Susceptible Oxacillin >=4.0 Resistant Trimethoprim + Sulfamethoxazole 4.0 Resistant Vancomycin 2.0 Susceptible Blood culture #2 [[id number]] (Abnormal) (Susceptibility) Collected: 02/04/25 1335 Specimen: Blood, Venous Updated: 02/07/25 0750 CULTURE RESULTS Staphylococcus hominis GRAM STAIN Gram positive cocci in clusters Narrative: Suboptimal volume of blood collected, Results may be affected. Susceptibility Staphylococcus hominis Not Specified Cefazolin Resistant (deduced) Clindamycin >=4.0 Resistant Doxycycline 4.0 Susceptible Oxacillin >=4.0 Resistant Trimethoprim + Sulfamethoxazole 4.0 Resistant Vancomycin 2.0 Susceptible BLOOD CULTURE IDENTIFICATION PANEL [[id number]] (Abnormal) Collected: 02/04/25 1335 Specimen: Blood, Venous Updated: 02/05/25 1049 Staphylococcus species PCR Detected Lower resp/sputum culture inc gram stain: Patient acquired [[id number]] (Abnormal) Collected: 02/04/25 1147 Specimen: Aspirate from Bronchus Updated: 02/06/25 1355 CULTURE RESULTS Few Mackenzie albicans Rare Non-lactose fermenting gram negative bacilli GRAM STAIN >25 White Blood Cells/LPF 1 to 9 Squamous Epithelial Cells/LPF 0 Ciliated Epithelial Cells/LPF Moderate Gram positive cocci in pairs, chains and clusters Few Gram negative bacilli Few Yeast Narrative: Along with Many Normal Respiratory Teresita. Mrsa Pcr nasal swab [[id number]] (Normal) Collected: 02/04/25 1147 Specimen: Swab from Nostril Updated: 02/04/25 1318 MRSA PCR NASAL Negative Resp Pathogens Panel/SARS CoV-2 [[id number]] (Normal) Collected: 02/04/25 1147 Specimen: Swab from Nasopharynx Updated: 02/04/25 1256 SARS COV 2 BY PCR Not Detected ADENOVIRUS Not Detected CORONAVIRUS 229E Not Detected CORONAVIRUS HKU1 Not Detected CORONAVIRUS NL63 Not Detected CORONAVIRUS OC43 Not Detected HUMAN METAPNEUVIRUS Not Detected RHINO/ENTEROVIRUS Not Detected INFLUENZA A Not Detected INFLUENZA B Not Detected PARAINFLUENZA 1 Not Detected PARAINFLUENZA 2 Not Detected PARAINFLUENZA 3 Not Detected PARAINFLUENZA 4 Not Detected RESP SYNCYTIAL VIRUS Not Detected BORD PARAPERTUSSIS Not Detected BORDETELLA PERTUSSIS Not Detected CHLAM.PNEUMONIAE Not Detected MYCOPLASMA PNEUMONIAE Not Detected Narrative: The BioFire Respiratory Panel 2.1 (RP2.1) is a multiplexed nucleic acid test intended for the simultaneous qualitative detection and differentiation of nucleic acid from multiple viral and bacterial respiratory organisms, including nucleic acid from Severe Acute Respiratory Syndrome Coronavirus 2 (SARS-CoV-2), in nasopharyngeal swabs obtained from individuals suspected of COVID-19 by their healthcare provider. Testing is limited to laboratories certified under the Clinical Laboratory Improvement Amendments of 1988 (CLIA), to perform high complexity or moderate complexity tests. SARS-CoV-2 RNA and nucleic acids from the other respiratory viral and bacterial organisms identified by this test are generally detectable in nasopharyngeal swabs during the acute phase of infection.The detection and identification of specific viral and bacterial nucleic acids from individuals exhibiting signs and/or symptoms of respiratory infection is indicative of the presence of the identified microorganism and aids in the diagnosis of respiratory infection if used in conjunction with other clinical and epidemiological information. Positive results are indicative of the presence of the identified organism, but do not rule out co-infection with other pathogens. The agent(s) detected by the [employer]iaFire RP2.1 may not be the definite cause of disease and clinical correlation with patient history and other diagnostic information is necessary to determine patient infection status. Negative results in the setting of a respiratory illness may be due to infection with pathogens notdetected by this test, or lower respiratory tract infection that may not be detected by a nasopharyngeal specimen. Negative results do not preclude SARS-CoV-2 infection and should not be used as the sole basis for patient management decisions. Negative RADHA-CoV-2 results must be combined with clinical observations, patient history and epidemiological information. Negative results for other organisms identified by the test may require additional laboratory testing when evaluating a patient with possible respiratory tract infection. Urine Culture Urine, Indwelling Catheter [[id number]] (Abnormal) Collected: 02/04/25 1143 Specimen: Urine, Indwelling Catheter Updated: 02/06/25 1152 CULTURE RESULTS 10,000-50,000 CFU/mL Mackenzie albicans Medications Scheduled: ipratropium-albuteroL, 3 mL, nebulization, TID iron sucrose, 100 mg, intravenous, Once [COMPLETED] methylPREDNISolone sodium succinate, 125 mg, intravenous, Once FOLLOWED BY methylPREDNISolone sodium succinate, 40 mg, intravenous, Q24H PRECIOUS pantoprazole, 40 mg, intravenous, QAM AC [COMPLETED] piperacillin-tazobactam (ZOSYN) IV, 4.5 g, intravenous, Once FOLLOWED BY piperacillin-tazobactam (ZOSYN) IV, 3.375 g, intravenous, Q8H sodium chloride, 30 mL, intravenous, Q8H AND sodium chloride, 30 mL, intravenous, PRN AND sodium chloride, 60 mL, intravenous, PRN vancomycin, 15 mg/kg, intravenous, Q24H warfarin, 4 mg, oral, Daily Infusions: dexmedeTOMIDine, 0.2-1 mcg/kg/hr, Last Rate: 0.8 mcg/kg/hr (02/07/25 07) dextrose 5 % in water, 100 mL/hr heparin, 300-3,500 Units/hr, Last Rate: 950 Units/hr (02/07/25 07) sodium chloride 0.9 %, 10 mL/hr sodium chloride 0.9 %, 10 mL/hr sodium chloride 0.9 %, 10 mL/hr sodium chloride 0.9 %, 20 mL/hr As Needed: calcium gluconate OR calcium gluconate OR calcium gluconate dextrose dextrose 50 % in water (D50W) glucagon (human recombinant) heparin (porcine) hydrALAZINE magnesium sulfate OR magnesium sulfate potassium chloride OR potassium chloride potassium chloride in water OR potassium chloride in water sodium phosphate IV OR sodium phosphate IV - central line OR sod phos di, mono-K phos mono sodium chloride AND sodium chloride AND sodium chloride sodium chloride 0.9 % sodium chloride 0.9 % sodium chloride 0.9 % sodium chloride 0.9 % Assessment Acute encephalopathy, improving GCS of 6 requiring intubation for airway protection Acute on chronic hypoxic hypercarbic respiratory failure s/p Intubation on 02/04 unknown etiology, improving Baseline pCO2 approx 60-80 CT chest w/ contrast (02/04) showed right greater than left b/l pleural effusions Healthcare acquired pneumonia BCx 10/17 showing Gram-positive cocci in clusters, pending susceptibility and speciation Due to HAP vs colonized indwelling lines vs contaminant Paroxysmal atrial fibrillation/flutter with RVR s/p CTI RFA ablation 2021, AV node ablation and dual-chamber pacemaker placement 01/28/25 Oliveros interrogation of AICD resulted with no events in the past 24 hours - 02/05/25 EP consultation 02/04/25: discontinue flecanide, metoprolol, recommend anticoagulation with warfarin Shock, most likely septic in setting of pneumonia and bacteremia Vasopressors off as of 02/06/25 COPD on 3L O2, on Azithromycin 3 times weekly Normocytic anemia Hypothyroidism WILIAN Plan Continue nasal cannula when appropriate Follow-up daily ABG Continue DuoNebs Continue IV methylprednisolone > de-escalate to once daily starting tomorrow Consider infectious disease consultation pending blood culture speciation Continue Vancomycin and Zosyn for now Remove indwelling catheters Obtain fluoroscopic swallow study Pending results, resume patient's home medications Continue monitoring and replete electrolytes per ICU protocol Continue home medications as appropriate Vent Settings: Settings Vent Mode: S/T FiO2 (%): 40 % Resp Rate (Set): 8 Vt (Set, mL): 450 mL Avea Vt (Set, L): 0.45 Liter PEEP/CPAP (cm H2O): 8 cm H20 Insp Time (sec): 1 sec Insp Rise Time (%): 3 % Trigger Sensitivity Pressure (cm H2O): 1 cm H2O IPAP: 12 EPAP: 8 Humidification: Heat and moisture exchanger Last AB.47/60.1/100/44.1 on 02/06 Fluids: None Pressor support: none Lines (location & placement): Right brachial arterial line, right IJ CVC, left pIV Burr/PEG/Drains: urinary catheter DVT prophylaxis: Heparin infusion GI prophylaxis: Pantoprazole 40 mg IV daily Wounds: Diet: NPO Code Status: Full code This progress note was completed using a voice dub room engineer system. Every effort was made to ensure accuracy. However, inadvertent computerized dub room engineer errors may be present. -------- Yazmin Rodgers DO Internal Medicine Resident 8:30 AM 02/07/25 Cosigned by Alejo Villalobos MD at 02/14/2025 12:01 PM EDT Associated attestation - Alejo Villalobos MD - 02/14/2025 12:01 PM EDT I personally saw this patient on the day of the encounter, performed the gamez portion(s) of the service and participated in the management and confirm the resident/fellow???s documentation. Please note there may be additional personal documentation from de Alejo Villalobos MD Pulmonary and critical care [facility] * Raj Wilkes PharmD - 02/06/2025 12:02 PM EDT Pharmacokinetic Consult - Follow Up Warfarin Dosing Minnie Cortez is a 64 y.o. female for whom pharmacy has been consulted for warfarin dosing and monitoring. Subjective Indication for treatment: afib Goal INR: 2-3 Current inpatient warfarin regimen: None Current Hematologic Labs Results from last 7 days Lab Units 02/06/25 0201 02/05/25 0252 02/04/25 1208 INR 1.8* 2.8* 3.2* Warfarin Administrations (last 168 hours) None Assessment INR currently: subtherapeutic Drug-drug interactions: zosyn Drug-disease state interactions: age, recent NSTEMI Other pertinent information: failed bedside swallow study yesterday. Did not received warfarin dose. Plan RX Anticoag Warfarin IP dose plan: Spoke with ICU resident, plan for video swallow study today. Will re-dose warfarin for tonight and if patient unable to receive due to enteral access barrier, nursewill hold. Patient remains on heparin infusion. Give warfarin 4 mg. Pt/INR daily. Pharmacist will continue to follow patient's clinical progress daily. Raj Wilkes PharmD Ext [phone] * Khang Andino MD - 02/06/2025 7:17 AM EDT Images from the original note were not included. Adult ICU Progress Note Patient - Minn[facility] Cortez [facility] 64 [facility] 1960 [id number] Date of Admission - 02/04/2025 10:58 AM ICU Length of Stay: 1d 20h Interval History Minnie Cortez is a 64 y.o. female with a past medical history of chronic hypercarbic respiratory failure secondary to COPD on 3L O2 (baseline CO2: 60), WILIAN, and paroxysmal A-Fib on Warfarin s/p prior DCCV, CTI RFA ablation with dual-chamber pacemaker placement on previous admission one week ago. Patient was recently hospitalized at [facility] from 02/03 01/30 due to Afib with RVR, and situation was C/B intubation sedation in the ICU due to altered mentation and removing BiPAP machine from progressive unit. Patient was extubated after a couple of days, and had AV node RFA with dual chamber pacemaker placement by electrophysiology and recommended to continue flecainide and metoprolol if converted back to AFib with RVR. Patient was discharged on therapeutic range Coumadin INR 2.8, and was sent toSNF near [place]. Very little information was received from handoff from [facility], however patient was found unresponsive at SNF and had a GCS score of [address] to the hospital and decreased to 6 which required intubation for protection of airway. Patient was then transferred back to [facility] ICU for concern of decompensation. CT brain without contrast and CT chest abdomen and pelvis with contrast weredone at [place], and only remarkable finding was pleural effusion b/l With urqih-sdvrnty-ynnx-left, and some anasarca in the abdomen. Oliveros interrogation of AICD showed no event occurred any time during this morning or afternoon. Electrophysiology was consulted for evaluation as patient is telemet ry showed concerns for NSVT. No further information was known, and patient was intubated and sedated upon arrival. Moving all 4 extremities spontaneously. 02/05/2025: Patient was extubated. Failed swallow bedside swallow test. Warfarin subtherapeutic; initiated on heparin. Subjective Patient seen and evaluated at bedside this morning. Vitals reviewed: Afebrile, heart rate 84, respiratory rate 15, blood pressure per artline 124/54, SpO2 98% on BiPAP. Upon my assessment, I find thepatient to be awake, alert, however not oriented. She is profoundly anxious and tremulous. Following commands. Underwent potassium repletion overnight. Patient remains on intravenous Zosyn, vanco, hep juanita, and steroids. 2/2 blood cultures positive for staph species growing in clusters. Plan for fluoroscopic swallow study today. Objective Vitals Temp: [36.7 ??C (98 ??F)-37.2 ??C (99 ??F)] 37 ??C (98.6 ??F) Pulse: [60-109] 84 Resp: [11-31] 15 BP: (188)/(80) 188/80 Arterial Line BP: (110-184)/(44-88) 124/54 FiO2 (%): [40 %] 40 % SpO2: [94 %-100 %] 98 % O2 Device: Nasal cannula O2 Flow Rate (L/min): [6 L/min] 6 L/min Weight: Admission weight: 57.2 kg (126 lb 1.7 oz) Wt Readings from Last 3 Encounters: 02/06/25 55 kg (121 lb 4.1 oz) 01/30/25 57.2 kg (126 lb 1.7 oz) 01/14/25 59 kg (130 lb 1.1 oz) Input/Output: Intake/Output Summary (Last 24 hours) at 02/06/2025 0717 Last data filed at 02/06/2025 0700 Gross per 24 hour Intake 1422.51 ml Output 2292 ml Net -869.49 ml Ventilator: Settings Vent Mode: S/T FiO2 (%): 40 % Resp Rate (Set): 8 Vt (Set, mL): 450 mL Avea Vt (Set, L): 0.45 Liter PEEP/CPAP (cm H2O): 8 cm H20 Insp Time (sec): 1 sec Insp Rise Time (%): 3 % Trigger Sensitivity Pressure (cm H2O): 1 cm H2O IPAP: 14 EPAP: 8 Humidification: Heat and moisture exchanger Physical Exam Constitutional: General: She is awake. She is not in acute distress. Appearance: Normal appearance. Interventions: Face mask in place. HENT: Head: Normocephalic and atraumatic. Eyes: General: No scleral icterus. Conjunctiva/sclera: Conjunctivae normal. Pupils: Pupils are equal, round, and reactive to light. Cardiovascular: Rate and Rhythm: Normal rate and regular rhythm. Pulses: Normal pulses. Heart sounds: Normal heart sounds. Pulmonary: Effort: Prolonged expiration present. No respiratory distress. Comments: Globally decreased breath sounds bilaterally. On BiPAP Abdominal: General: Bowel sounds are normal. There is no distension. Tenderness: There is no abdominal tenderness. There is no guarding or rebound. Musculoskeletal: General: No swelling or tenderness. Cervical back: Normal range of motion and neck supple. Right lower leg: No edema. Left lower leg: No edema. Skin: Coloration: Skin is not jaundiced or pale. Neurological: General: No focal deficit present. Mental Status: She is alert. Mental status is at baseline. She is disoriented. Cranial Nerves: No cranial nerve deficit. Motor: Tremor present. Comments: Precedex on. Following commands. Psychiatric: Mood and Affect: Mood normal. Behavior: Behavior normal. Behavior is cooperative. Lab Results Results from last 7 days Lab Units 02/06/25 0201 02/05/25 0252 02/04/25 1208 WBC x10E9/L 4.1 11.3* 11.9* HEMOGLOBIN g/dL 7.8* 7.6* 7.9* HEMATOCRIT % 24.3* 24.0* 25.6* PLATELETS X10E9/L 161 251 236 Results from last 7 days Lab Units 02/06/25 0201 02/05/25 0252 02/04/25 1208 APTT sec 26 -- -- INR 1.8* 2.8* 3.2* Results from last 7 days Lab Units 02/06/25 0201 02/05/25 1251 02/05/25 0801 02/05/25 0252 02/04/25 2002 02/04/25 1755 02/04/25 1208 SODIUM mmol/L 148* -- -- 145 -- -- 145 POTASSIUM mmol/L 3.4* 4.5 3.7 3.6 -- < > 3.7 CHLORIDE mmol/L 96* -- -- 94* -- -- 91* CO2 mmol/L 44* -- -- 43* -- -- >45* BUN mg/dL 21 -- -- 17 -- -- 12 CREATININE mg/dL 0.50 -- -- 0.55 -- -- 0.39* CALCIUM mg/dL 8.5 -- -- 8.6 -- -- 8.2* PHOSPHORUS mg/dL 4.6 -- -- 3.4 2.0* -- 2.1* MAGNESIUM mg/dL 2.0 -- -- 2.6 -- -- 1.6* < > = values in this interval not displayed. Results from last 7 days Lab Units 02/06/25 0201 02/05/25 0252 02/04/25 1208 ALBUMIN g/dL 3.3 3.2 3.2 PROTEIN TOTAL g/dL 5.4* 5.1* 5.1* ALT U/L 19 23 26 AST U/L 12 15 26 ALK PHOS U/L 53 55 65 Results from last 7 days Lab Units 02/06/25 0201 02/05/25 0252 02/04/25 1208 GLUCOSE mg/dL 152* 135* 108* Lab Results Component Value Date HGBA1C 4.8 02/04/2025 Results from last 7 days Lab Units 02/05/25 1011 02/04/25 1755 02/04/25 1208 TROPONIN I HS ng/L -- 81* 96* BNP pg/mL 169* -- 302* Results from last 7 days Lab Units 02/04/25 1208 VITAMIN B 12 pg/mL 200 FOLATE ng/mL 12.0 FERRITIN ng/mL 90 IRON ug/dL 34* IRON BINDING CAPACITY ug/dL 301 IRON SATURATION % SATURATION 11* Lab Results Component Value Date SPECIFICGRA 1.032 02/04/2025 LEUKOCYTE Negative 02/04/2025 UROBILINOGEN <1.1 eu/dL 02/04/2025 Radiology X-ray chest 1 view Result Date: 02/05/2025 CLINICAL INFORMATION: Shortness of breath, difficulty breathing. TECHNIQUE: Chest radiograph, single AP view. COMPARISON: 02/04/2025. FINDINGS Endotracheal tube and right IJ catheter in similar position. Enteric tube sidehole projects over the stomach. Cardiomediastinal silhouette is unchanged. No pneumothorax. Small bilateral pleural effusions. Mild central pulmonary vascular congestion, similar to prior. IMPRESSION: * No significant interval change. Approved by Resident Mathieu Jones DO on 02/05/2025 7:12 AM I, Manuel Milligan have personally reviewed the image(s) and agree with and/or edited the report Finalized by Manuel Milligan on 02/05/2025 8:00 AM X-ray chest 1 view Result Date: 02/04/2025 Chest radiograph dated: 02/04/2025. Reason for study: new line cvc. Comparison studies: Chest x-ray from 01/28/2025. Technique: Portable upright chest view AP. Findings/impression: 1. Endotracheal tubedistal tip is approximately 3.5 cm from the diane. Right central venous catheter with the distal tip at the central right brachiocephalic vein. Enteric tube is seen coursing below the level of the diaphragm with the distal tip not seen. 2. Nonenlarged cardiomediastinal silhouette. Possible trace interstitial edema more pronounced on the right. 3. Small bilateral pleural effusions. Scant bibasilar airspace opacities which may relate to subsegmental atelectatic change versus developing pneumoniain the appropriate clinical setting. Minimally improved aeration of right lung base. 4. No definitive pneumothorax. Finalized by Aden Ellsworth MD on 02/04/2025 1:21 PM Cultures Microbiology Results Procedure Component Value Units Date/Time Blood culture #1 [[id number]] Collected: 02/05/25 1231 Specimen: Blood, Venous Updated: 02/06/25 0202 CULTURE RESULTS NO GROWTH <24 HRS Blood culture #2 [[id number]] Collected: 02/05/25 1231 Specimen: Blood, Venous Updated: 02/06/25 0202 CULTURE RESULTS NO GROWTH <24 HRS Blood culture #1 [[id number]] (Abnormal) Collected: 02/04/25 1335 Specimen: Blood, Venous Updated: 02/05/25 1411 CULTURE RESULTS Culture in progress GRAM STAIN Gram positive cocci in clusters Narrative: Suboptimal volume of blood collected, Results may be affected. Blood culture #2 [[id number]] (Abnormal) Collected: 02/04/25 1335 Specimen: Blood, Venous Updated: 02/05/25 1117 CULTURE RESULTS Culture in progress GRAM STAIN Gram positive cocci in clusters Narrative: Suboptimal volume of blood collected, Results may be affected. BLOOD CULTURE IDENTIFICATION PANEL [[id number]] (Abnormal) Collected: 02/04/25 1335 Specimen: Blood, Venous Updated: 02/05/25 1049 Staphylococcus species PCR Detected Lower resp/sputum culture inc gram stain: Patient acquired [[id number]] (Abnormal) Collected: 02/04/25 1147 Specimen: Aspirate from Bronchus Updated: 02/05/25 1257 CULTURE RESULTS Culture in progress Few Mackenzie albicans GRAM STAIN >25 White Blood Cells/LPF 1 to 9 Squamous Epithelial Cells/LPF 0 Ciliated Epithelial Cells/LPF Moderate Gram positive cocci in pairs, chains and clusters Few Gram negative bacilli Few Yeast Mrsa Pcr nasal swab [[id number]] (Normal) Collected: 02/04/25 1147 Specimen: Swab from Nostril Updated: 02/04/25 1318 MRSA PCR NASAL Negative Resp Pathogens Panel/SARS CoV-2 [[id number]] (Normal) Collected: 02/04/25 1147 Specimen: Swab from Nasopharynx Updated: 02/04/25 1256 SARS COV 2 BY PCR Not Detected ADENOVIRUS Not Detected CORONAVIRUS 229E Not Detected CORONAVIRUS HKU1 Not Detected CORONAVIRUS NL63 Not Detected CORONAVIRUS OC43 Not Detected HUMAN METAPNEUVIRUS Not Detected RHINO/ENTEROVIRUS Not Detected INFLUENZA A Not Detected INFLUENZA B Not Detected PARAINFLUENZA 1 Not Detected PARAINFLUENZA 2 Not Detected PARAINFLUENZA 3 Not Detected PARAINFLUENZA 4 Not Detected RESP SYNCYTIAL VIRUS Not Detected BORD PARAPERTUSSIS Not Detected BORDETELLA PERTUSSIS Not Detected CHLAM.PNEUMONIAE Not Detected MYCOPLASMA PNEUMONIAE Not Detected Narrative: The [employer] Respiratory Panel 2.1 (RP2.1) is a multiplexed nucleic acid test intended for the simultaneous qualitative detection and differentiation of nucleic acid from multiple viral and bacterial respiratory organisms, including nucleic acid from Severe Acute Respiratory Syndrome Coronavirus 2 (SARS-CoV-2), in nasopharyngeal swabs obtained from individuals suspected of COVID-19 by their healthcare provider. Testing is limited to laboratories certified under the Clinical Laboratory Improvement Amendments of 1988 (CLIA), to perform high complexity or moderate complexity tests. SARS-CoV-2 RNA and nucleic acids from the other respiratory viral and bacterial organisms identified by this test are generally detectable in nasopharyngeal swabs during the acute phase of infection.The detection and identification of specific viral and bacterial nucleic acids from individuals exhibiting signs and/or symptoms of respiratory infection is indicative of the presence of the identified microorganism and aids in the diagnosis of respiratory infection if used in conjunction with other clinical and epidemiological information. Positive results are indicative of the presence of the identified organism, but do not rule out co-infection with other pathogens. The agent(s) detected by the [employer] RP2.1 may not be the definite cause of disease and clinical correlation with patient history and other diagnostic information is necessary to determine patient infection status. Negative results in the setting of a respiratory illness may be due to infection with pathogens notdetected by this test, or lower respiratory tract infection that may not be detected by a nasopharyngeal specimen. Negative results do not preclude SARS-CoV-2 infection and should not be used as the sole basis for patient management decisions. Negative RADHA-CoV-2 results must be combined with clinical observations, patient history and epidemiological information. Negative results for other organisms identified by the test may require additional laboratory testing when evaluating a patient with possible respiratory tract infection. Urine Culture Urine, Indwelling Catheter [[id number]] Collected: 02/04/25 1143 Specimen: Urine, Indwelling Catheter Updated: 02/04/254 Medications Scheduled: ipratropium-albuteroL, 3 mL, nebulization, TID [COMPLETED] methylPREDNISolone sodium succinate, 125 mg, intravenous, Once FOLLOWED BY methylPREDNISolone sodium succinate, 40 mg, intravenous, Q12H PRECIOUS pantoprazole, 40 mg, intravenous, QAM AC [COMPLETED] piperacillin-tazobactam (ZOSYN) IV, 4.5 g, intravenous, Once FOLLOWED BY piperacillin-tazobactam (ZOSYN) IV, 3.375 g, intravenous, Q8H sodium chloride, 30 mL, intravenous, Q8H AND sodium chloride, 30 mL, intravenous, PRN AND sodium chloride, 60 mL, intravenous, PRN vancomycin, 15 mg/kg, intravenous, Q24H warfarin, 2.5 mg, oral, Daily Infusions: dexmedeTOMIDine, 0.2-0.7 mcg/kg/hr, Last Rate: 0.7 mcg/kg/hr (02/06/25647) heparin, 300-3,500 Units/hr, Last Rate: 650 Units/hr (02/06/25647) sodium chloride 0.9 %, 3 mL/hr, Last Rate: 3 mL/hr (02/06/25 0648) sodium chloride 0.9 %, 10 mL/hr sodium chloride 0.9 %, 10 mL/hr sodium chloride 0.9 %, 10 mL/hr, Last Rate: 10 mL/hr (02/06/25 0648) As Needed: acetaminophen calcium gluconate OR calcium gluconate OR calcium gluconate dextrose dextrose 50 % in water (D50W) glucagon (human recombinant) heparin (porcine) hydrALAZINE magnesium sulfate OR magnesium sulfate potassium chloride OR potassium chloride potassium chloride in water OR potassium chloride in water sodium phosphate IV OR sodium phosphate IV - central line OR sod phos di, mono-K phos mono sodium chloride AND sodium chloride AND sodium chloride sodium chloride 0.9 % sodium chloride 0.9 % sodium chloride 0.9 % Assessment Acute encephalopathy, improving GCS of 6 requiring intubation for airway protection Acute on chronic hypoxic hypercarbic respiratory failure s/p Intubation on 02/04 unknown etiology, improving Baseline pCO2 approx 60-80 CT chest w/ contrast (02/04) showed right greater than left b/l pleural effusions Healthcare acquired pneumonia BCx 10/17 showing Gram-positive cocci in clusters, pending susceptibility and speciation Due to HAP vs colonized indwelling lines vs contaminant Paroxysmal atrial fibrillation/flutter with RVR s/p CTI RFA ablation 2021, AV node ablation and dual-chamber pacemaker placement 01/28/25 Oliveros interrogation of AICD resulted with no events in the past 24 hours - 02/05/25 EP consultation 02/04/25: discontinue flecanide, metoprolol, recommend anticoagulation with warfarin Shock, most likely septic in setting of pneumonia and bacteremia Vasopressors off as of 02/06/25 COPD on 3L O2, on Azithromycin 3 times weekly Normocytic anemia Hypothyroidism WILIAN Plan Continue BiPAP; weaned to nasal cannula when appropriate Follow-up ABG Continue DuoNebs Continue IV methylprednisolone > de-escalate to once daily starting tomorrow Consider infectious disease consultation pending blood culture speciation Continue Vancomycin and Zosyn for now Remove indwelling catheters Obtain fluoroscopic swallow study Pending results, resume patient's home medications Continue monitoring and replete electrolytes per ICU protocol Continue home medications as appropriate Vent Settings: Settings Vent Mode: S/T FiO2 (%): 40 % Resp Rate (Set): 8 Vt (Set, mL): 450 mL Avea Vt (Set, L): 0.45 Liter PEEP/CPAP (cm H2O): 8 cm H20 Insp Time (sec): 1 sec Insp Rise Time (%): 3 % Trigger Sensitivity Pressure (cm H2O): 1 cm H2O IPAP: 14 EPAP: 8 Humidification: Heat and moisture exchanger Last AB.47/60.1/100/44.1 on 02/06 Fluids: None Pressor support: none Lines (location & placement): Right brachial arterial line, right IJ CVC, left pIV Burr/PEG/Drains: urinary catheter DVT prophylaxis: Heparin infusion GI prophylaxis: Pantoprazole 40 mg IV daily Wounds: Diet: NPO Code Status: Full code This progress note was completed using a voice dub room engineer system. Every effort was made to ensure accuracy. However, inadvertent computerized dub room engineer errors may be present. -- Khang Andino MD residential designer, PGY-1 [facility] 7:17 AM 02/06/25 Cosigned by Alejo Villalobos MD at 02/07/2025 9:44 AM EDT Associated attestation - Alejo Villalobos MD - 02/07/2025 9:44 AM EDT I personally saw this patient on the day of the encounter, performed the gamez portion(s) of the service and participated in the management and confirm the resident/fellow???s documentation. Please note there may be additional personal documentation from me 64 year old female with past medical history of COPD, WILIAN and Afib on coumadin presented due to altered mental status. She required intubation and MV. CT chest showed bilateral pleural effusion. ABG showed metabolic alkalosis. Se was started on empiric antibiotics and steroids. Cardiology consultedfor concerns for Non sustained VT and device interrogation. Central line and A line were placed. CTchest was obtained and showed severe emphysema and right-sided pleural effusion. Patient was extubated to nasal cannula. She will need noninvasive ventilation HS and during naps. Continue antibioticsand steroids. We will consider thoracentesis if this mellitus status is worsening. Currently on Prec edex drip. Continue anticoagulation with warfarin. CCT 35 mins Alejo Villalobos MD Pulmonary and critical care [facility] * Oliva Smyth, [facility] - 02/05/2025 7:55 PM EDT Pharmacokinetic Consult - Anticoagulation Dosing Minnie Cortez is a 64 y.o. female for whom pharmacy has been consulted for warfarin dosing and monitoring. Indication for treatment: atrial fibrillation Current Hematologic Labs Lab Results Component Value Date Inr 2.8 (H) 12/02/2024 Inr 1.8 (H) 09/05/2022 Inr 1.6 (H) 09/04/2022 INR 2.8 (H) 02/05/2025 INR 3.2 (H) 02/04/2025 INR 2.8 (H) 01/30/2025 Lab Results Component Value Date ALT 23 02/05/2025 Warfarin Administrations (last 168 hours) None Subjective Anticoag Therapy Indication: Cardiac dysrhythmia Target INR: 2 - 3 Warfarin Prior to Admission?: Yes Most Recent Warfarin Regimen: 4 mg daily Assessment Bleeding Risks: Age > 65 y;Drug-drug interactions;Recent myocardial infarction Interacting Medication(s): zosyn, solu-medrol Plan Holding Warfarin Dose?: Not holding Bridging Agent in Conjunction With Warfarin? : No Follow-Up Labs: Daily INR per protocol Patient Education (with patient/family): On OFFICE SPEC - not needed Will begin warfarin 2.5 mg daily given supratherapeutic INR at admission and starting of steroids and antibiotics. Will continue to follow patient's clinical progress daily. Oliva Smyth PharmD, [facility] * Cirilo Garland RCP - 02/05/2025 1:20 PM EDT Extubation Time-Out Process Date of Time-Out Process: 02/05/2025 Time-Out Process Check List: Verified patient identification Time-Out Comments: Reason Reason: No perceived need for further ventilatory support Technical Description Pre-extubation status: meets required criteria Pre-extubation assessment Rapid breathing index: <85 Negative inspiratory force (NIF): 20-40 Gag reflex: Weak T-piece trial: Tolerated for >= 120 mins without problem Vital Capacity: 10-15ml/kg Cuff test: Able to breathe around deflated cuff Preparation:placed in sitting position and placed on supplemental oxygen Evaluation Air movement: satisfactory Oxygenation: satisfactory Hemodynamics: hemodynamically stable throughout Outcome: placed on supplemental oxygen Miscellaneous Information Procedure Information This procedure was performed independently of the time included in today's admission/progress note(s) * Yazmin Rodgers DO - 02/05/2025 7:56 AM EDT Images from the original note were not included. Adult ICU Progress Note Patient - Minnie Cortez Age - 64 y.o. - 1960 Date of Admission - 02/04/2025 10:58 AM ICU Length of Stay: 21h Interval History Minnie Cortez is a 64 y.o. female with a past medical history of chronic hypercarbic respiratory failure secondary to COPD on 3L O2 (baseline CO2: 60), WILIAN, and paroxysmal A-Fib on Warfarin s/p prior DCCV, CTI RFA ablation with dual-chamber pacemaker placement on previous admission one week ago. Patient was recently hospitalized at [facility] from 02/03 01/30 due to Afib with RVR, and situation was C/B intubation sedation in the ICU due to altered mentation and removing BiPAP machine from progressive unit. Patient was extubated after a couple of days, and had AV node RFA with dual chamber pacemaker placement by electrophysiology and recommended to continue flecainide and metoprolol if converted back to AFib with RVR. Patient was discharged on therapeutic range Coumadin INR 2.8, and was sent [place]NF near [place]. Very little information was received from handoff from [facility], however patient was found unresponsive at SNF and had a GSC score of [address] to the hospital and decreased to 6 which required intubation for protection of airway. Patient was then transferred back to [facility] ICU for concern of decompensation. CT brain without contrast and CT chest abdomen and pelvis with contrast weredone at [place], and only remarkable finding was pleural effusion b/l With ywwzu-swysotv-vyrl-left, and some anasarca in the abdomen. Oliveros interrogation of AICD showed no event occurred any time during this morning or afternoon. Electrophysiology was consulted for evaluation as patient is telemet ry showed concerns for NSVT. No further information was known, and patient was intubated and sedated upon arrival. Moving all 4 extremities spontaneously. Subjective Patient was seen and examined at bedside, no acute events overnight, vital signs are stable, patient is off of all pressors this morning and with appropriate BP 114/49, and we will attempt CPAP trialdue to patient being on PRVC peep of 8 and FiO2 of 40 satting appropriately. Weaning patient off ofpropofol entirely, and Precedex will be maintained until patient is extubated. Patient does have a chronic history of severe anxiety, and is doing well as of now. Objective Vitals Temp: [36.7 ??C (98 ??F)-37.3 ??C (99.2 ??F)] 37.3 ??C (99.1 ??F) Pulse: [69-187] 70 Resp: [14-25] 16 BP: (66-171)/(39-136) 102/54 Arterial Line BP: (92-134)/(39-57) 131/51 FiO2 (%): [40 %-50 %] 40 % SpO2: [87 %-99 %] 97 % O2 Device: Endotracheal tube Weight: Admission weight: 57.2 kg (126 lb 1.7 oz) Wt Readings from Last 3 Encounters: 02/05/25 57.5 kg (126 lb 12.2 oz) 01/30/25 57.2 kg (126 lb 1.7 oz) 01/14/25 59 kg (130 lb 1.1 oz) Input/Output: Intake/Output Summary (Last 24 hours) at 02/05/2025 0758 Last data filed at 02/05/2025 0651 Gross per 24 hour Intake 1601.59 ml Output 1015 ml Net 586.59 ml Ventilator: Settings Vent Mode: PRVC-AC FiO2 (%): 40 % Resp Rate (Set): 16 Avea Vt (Set, L): 0.45 Liter PEEP/CPAP (cm H2O): 8 cm H20 Insp Time (sec): 1 sec Trigger Sensitivity Pressure (cm H2O): 1 cm H2O Humidification: Heat and moisture exchanger Physical Exam Constitutional: General: She is not in acute distress. Appearance: Normal appearance. HENT: Head: Normocephalic and atraumatic. Mouth/Throat: Mouth: Mucous membranes are moist. Eyes: General: No scleral icterus. Conjunctiva/sclera: Conjunctivae normal. Cardiovascular: Rate and Rhythm: Normal rate and regular rhythm. Pulses: Normal pulses. Heart sounds: Normal heart sounds. Pulmonary: Effort: Pulmonary effort is normal. No respiratory distress. Breath sounds: Normal breath sounds. No rales. Abdominal: General: Bowel sounds are normal. There is no distension. Tenderness: There is no abdominal tenderness. There is no guarding or rebound. Musculoskeletal: General: No swelling or tenderness. Right lower leg: No edema. Left lower leg: No edema. Skin: Coloration: Skin is not jaundiced or pale. Neurological: General: No focal deficit present. Mental Status: She is alert. Mental status is at baseline. She is disoriented. Cranial Nerves: No cranial nerve deficit. Comments: Still on propofol and Precedex, however responsive and follows commands appropriately Psychiatric: Mood and Affect: Mood normal. Behavior: Behavior normal. Thought Content: Thought content normal. Judgment: Judgment normal. Lab Results Results from last 7 days Lab Units 02/05/2525102/04/25120701/30/25 0520 WBC x10E9/L 11.3* 11.9* 9.5 HEMOGLOBIN g/dL 7.6* 7.9* 8.8* HEMATOCRIT % 24.0* 25.6* 28.0* PLATELETS X10E9/L 251 236 233 Results from last 7 days Lab Units 02/05/2525102/04/25120701/30/25 0520 INR 2.8* 3.2* 2.8* Results from last 7 days Lab Units 02/05/2525102/04/25200102/04/25175402/04/25120701/30/25 0520 SODIUM mmol/L 145 -- -- 145 143 POTASSIUM mmol/L 3.6 -- 4.2 3.7 4.6 CHLORIDE mmol/L 94* -- -- 91* 92* CO2 mmol/L 43* -- -- >45* >45* BUN mg/dL 17 -- -- 12 15 CREATININE mg/dL 0.55 -- -- 0.39* 0.31* CALCIUM mg/dL 8.6 -- -- 8.2* 8.6 PHOSPHORUS mg/dL 3.4 2.0* -- 2.1* -- MAGNESIUM mg/dL 2.6 -- -- 1.6* 1.9 Results from last 7 days Lab Units 02/05/2525102/04/25120701/30/25 0520 ALBUMIN g/dL 3.2 3.2 3.3 PROTEIN TOTAL g/dL 5.1* 5.1* 5.1* ALT U/L 23 26 11 AST U/L 15 26 16 ALK PHOS U/L 55 65 37* Results from last 7 days Lab Units 02/05/2525102/04/25120702/04/25 1124 BEDSIDE GLUCOSE mg/dL -- -- 83 GLUCOSE mg/dL 135* 108* -- Lab Results Component Value Date HGBA1C 5.6 05/30/2022 Results from last 7 days Lab Units 02/04/25175402/04/25 120 TROPONIN I HS ng/L 81* 96* BNP pg/mL -- 302* Results from last 7 days Lab Units 02/04/25 1208 VITAMIN B 12 pg/mL 200 FOLATE ng/mL 12.0 FERRITIN ng/mL 90 IRON ug/dL 34* IRON BINDING CAPACITY ug/dL 301 IRON SATURATION % SATURATION 11* Lab Results Component Value Date SPECIFICGRA 1.032 02/04/2025 LEUKOCYTE Negative 02/04/2025 UROBILINOGEN <1.1 eu/dL 02/04/2025 Radiology X-ray chest 1 view Result Date: 02/05/2025 CLINICAL INFORMATION: Shortness of breath, difficulty breathing. TECHNIQUE: Chest radiograph, single AP view. COMPARISON: 02/04/2025. FINDINGS Endotracheal tube and right IJ catheter in similar position. Enteric tube sidehole projects over the stomach. Cardiomediastinal silhouette is unchanged. No pneumothorax. Small bilateral pleural effusions. Mild central pulmonary vascular congestion, similar to prior. IMPRESSION: * No significant interval change. Approved by Resident Mathieu Jones DO on 02/05/2025 7:12 AM X-ray chest 1 view Result Date: 02/04/2025 Chest radiograph dated: 02/04/2025. Reason for study: new line cvc. Comparison studies: Chest x-ray from 01/28/2025. Technique: Portable upright chest view AP. Findings/impression: 1. Endotracheal tubedistal tip is approximately 3.5 cm from the diane. Right central venous catheter with the distal tip at the central right brachiocephalic vein. Enteric tube is seen coursing below the level of the diaphragm with the distal tip not seen. 2. Nonenlarged cardiomediastinal silhouette. Possible trace interstitial edema more pronounced on the right. 3. Small bilateral pleural effusions. Scant bibasilar airspace opacities which may relate to subsegmental atelectatic change versus developing pneumoniain the appropriate clinical setting. Minimally improved aeration of right lung base. 4. No definitive pneumothorax. Finalized by Aden Ellsworth MD on 02/04/2025 1:21 PM Cultures Microbiology Results Procedure Component Value Units Date/Time Blood culture #1 [[id number]] Collected: 02/04/25 1335 Specimen: Blood, Venous Updated: 02/05/25 0501 CULTURE RESULTS NO GROWTH <24 HRS Narrative: Suboptimal volume of blood collected, Results may be affected. Blood culture #2 [[id number]] Collected: 02/04/25 1335 Specimen: Blood, Venous Updated: 02/05/25 0501 CULTURE RESULTS NO GROWTH <24 HRS Narrative: Suboptimal volume of blood collected, Results may be affected. Lower resp/sputum culture inc gram stain: Patient acquired [[id number]] (Abnormal) Collected: 02/04/25 1147 Specimen: Aspirate from Bronchus Updated: 02/04/25 2259 GRAM STAIN >25 White Blood Cells/LPF 1 to 9 Squamous Epithelial Cells/LPF 0 Ciliated Epithelial Cells/LPF Moderate Gram positive cocci in pairs, chains and clusters Few Gram negative bacilli Few Yeast Mrsa Pcr nasal swab [[id number]] (Normal) Collected: 02/04/25 1147 Specimen: Swab from Nostril Updated: 02/04/25 1318 MRSA PCR NASAL Negative Resp Pathogens Panel/SARS CoV-2 [[id number]] (Normal) Collected: 02/04/25 1147 Specimen: Swab from Nasopharynx Updated: 02/04/25 1256 SARS COV 2 BY PCR Not Detected ADENOVIRUS Not Detected CORONAVIRUS 229E Not Detected CORONAVIRUS HKU1 Not Detected CORONAVIRUS NL63 Not Detected CORONAVIRUS OC43 Not Detected HUMAN METAPNEUVIRUS Not Detected RHINO/ENTEROVIRUS Not Detected INFLUENZA A Not Detected INFLUENZA B Not Detected PARAINFLUENZA 1 Not Detected PARAINFLUENZA 2 Not Detected PARAINFLUENZA 3 Not Detected PARAINFLUENZA 4 Not Detected RESP SYNCYTIAL VIRUS Not Detected BORD PARAPERTUSSIS Not Detected BORDETELLA PERTUSSIS Not Detected CHLAM.PNEUMONIAE Not Detected MYCOPLASMA PNEUMONIAE Not Detected Narrative: The [employer] Respiratory Panel 2.1 (RP2.1) is a multiplexed nucleic acid test intended for the simultaneous qualitative detection and differentiation of nucleic acid from multiple viral and bacterial respiratory organisms, including nucleic acid from Severe Acute Respiratory Syndrome Coronavirus 2 (SARS-CoV-2), in nasopharyngeal swabs obtained from individuals suspected of COVID-19 by their healthcare provider. Testing is limited to laboratories certified under the Clinical Laboratory Improvement Amendments of 1988 (CLIA), to perform high complexity or moderate complexity tests. SARS-CoV-2 RNA and nucleic acids from the other respiratory viral and bacterial organisms identified by this test are generally detectable in nasopharyngeal swabs during the acute phase of infection.The detection and identification of specific viral and bacterial nucleic acids from individuals exhibiting signs and/or symptoms of respiratory infection is indicative of the presence of the identified microorganism and aids in the diagnosis of respiratory infection if used in conjunction with other clinical and epidemiological information. Positive results are indicative of the presence of the identified organism, but do not rule out co-infection with other pathogens. The agent(s) detected by the [employer] RP2.1 may not be the definite cause of disease and clinical correlation with patient history and other diagnostic information is necessary to determine patient infection status. Negative results in the setting of a respiratory illness may be due to infection with pathogens notdetected by this test, or lower respiratory tract infection that may not be detected by a nasopharyngeal specimen. Negative results do not preclude SARS-CoV-2 infection and should not be used as the sole basis for patient management decisions. Negative RADHA-CoV-2 results must be combined with clinical observations, patient history and epidemiological information. Negative results for other organisms identified by the test may require additional laboratory testing when evaluating a patient with possible respiratory tract infection. Urine Culture Urine, Indwelling Catheter [[id number]] Collected: 02/04/25 1143 Specimen: Urine, Indwelling Catheter Updated: 02/04/258 Medications Scheduled: chlorhexidine, 15 mL, mouth/throat, BID hydrocortisone sodium succinate, 50 mg, intravenous, Q6H ipratropium-albuteroL, 3 mL, nebulization, Q6H pantoprazole, 40 mg, intravenous, QAM AC [COMPLETED] piperacillin-tazobactam (ZOSYN) IV, 4.5 g, intravenous, Once FOLLOWED BY piperacillin-tazobactam (ZOSYN) IV, 3.375 g, intravenous, Q8H [COMPLETED] vancomycin, 20 mg/kg, intravenous, Once FOLLOWED BY vancomycin, 15 mg/kg, intravenous, Q24H Infusions: dextrose 5 % in water, 100 mL/hr phenylephrine, 0.5-2.5 mcg/kg/min, Last Rate: 0.3 mcg/kg/min (02/05/25650) propofoL, 5-50 mcg/kg/min, Last Rate: 35 mcg/kg/min (02/05/25650) sodium chloride 0.9 %, 10 mL/hr sodium chloride 0.9 %, 10 mL/hr, Last Rate: 10 mL/hr (02/05/25650) sodium chloride 0.9 %, 10 mL/hr, Last Rate: 10 mL/hr (02/05/25650) sodium chloride 0.9 %, 3 mL/hr, Last Rate: 3 mL/hr (02/05/25650) vasopressin (PITRESSIN) 40 Units in sodium chloride 0.9 % 40 mL (1 Units/mL) infusion, 0.04 Units/min As Needed: calcium gluconate OR calcium gluconate OR calcium gluconate dextrose dextrose 5 % in water dextrose 50 % in water (D50W) glucagon (human recombinant) magnesium sulfate OR magnesium sulfate potassium chloride OR potassium chloride potassium chloride in water OR potassium chloride in water sodium phosphate IV OR sodium phosphate IV - central line OR sod phos di, mono-K phos mono sodium chloride 0.9 % sodium chloride 0.9 % sodium chloride 0.9 % Assessment Acute encephalopathy, improving GCS of 6 requiring intubation for airway protection Acute on chronic hypoxic hypercarbic respiratory failure s/p Intubation on 02/04 unknown etiology, improving baseline pCO2 approx 60 CT chest w/ contrast (02/04) showed right greater than left b/l pleural effusions Healthcare acquired pneumonia Paroxysmal atrial fibrillation/flutter with RVR s/p CTI RFA ablation 2021, AV node ablation and dual-chamber pacemaker placement 01/28/25 COPD on 3L O2, on Azithromycin 3 times weekly Normocytic anemia Hypothyroidism WILIAN Plan Improving mentation, attempt CPAP trial and possible extubation today RPP negative DuoNebs ordered for wheezing Oliveros interrogation of AICD resulted with no events in the past 24 hours Pending radiology imaging push from [facility] to [facility] BCx 10/17 showing Gram-positive cocci in clusters, pending susceptibility and speciation Continue Vancomycin and Zosyn for now Discontinue metoprolol and flecainide for arrhythmia control Off of pressor support as of this morning Weaning off propofol, and starting Precedex for preparation of extubation today Electrophysiology consulted, recommendations appreciated Continue monitoring and replete electrolytes per ICU protocol Continue home medications as appropriate Vent Settings: Settings Vent Mode: PRVC-AC FiO2 (%): 40 % Resp Rate (Set): 16 Avea Vt (Set, L): 0.45 Liter PEEP/CPAP (cm H2O): 8 cm H20 Insp Time (sec): 1 sec Trigger Sensitivity Pressure (cm H2O): 1 cm H2O Humidification: Heat and moisture exchanger Last AB.516/54.1/84/43.8 on 02/05 Fluids: None Pressor support: none Lines (location & placement): Right brachial arterial line, right IJ CVC, left pIV, Burr/PEG/Drains: ETT, OG tube, urinary catheter DVT prophylaxis: None GI prophylaxis: Pantoprazole 40 mg IV daily Wounds: With greenish Diet: NPO Code Status: Full code The patient was seen and discussed with attending Dr. Ventura. This progress note was completed using a voice dub room engineer system. Every effort was made to ensure accuracy. However, inadvertent computerized dub room engineer errors may be present. Yazmin Rodgers DO Internal Medicine Resident 7:58 AM 02/05/25 Cosigned by Shari Ventura MD at 02/05/2025 1:30 PM EDT Associated attestation - Shari Ventura MD - 02/05/2025 1:30 PM EDT I have seen and examined the patient on rounds with the resident/fellow. I repeated the gamez components of the exam. I confirm the note and agree with the assessment and plan. Patient respiratory status improving. She has baseline hypercapnia. Decrease the respiratory rate. Will extubate as long as mental status allows. Shari Ventura MD [facility] Pulmonary interventional and Critical Care Medicine * Marisol Monk, [facility] - 02/04/2025 12:48 PM EDT Pharmacokinetic Consult - Vancomycin Dosing Minnie Cortez is a 64 y.o. female for whom pharmacy has been consulted for vancomycin dosing for pneumonia. Today is day 1 of vancomycin therapy. Relevant clinical data and objective history reviewed: Allergies: Lyrica [pregabalin], Zonisamide, and Nickel No data from last 3 days. Temp Readings from Last 3 Encounters: 02/04/25 36.7 ??C (98 ??F) (Oral) 01/30/25 36.9 ??C (98.4 ??F) (Oral) 01/14/25 36.4 ??C (97.5 ??F) (Oral) Renal Parameters: No intake/output data recorded. Calculated CrCl (IBW): 143.1 ml/min Culture Data: Microbiology Results Procedure Component Value Units Date/Time Mrsa Pcr nasal swab [[id number]] Collected: 02/04/25 1147 Specimen: Swab from Nostril Updated: 02/04/25 1159 Resp Pathogens Panel/SARS CoV-2 [[id number]] Collected: 02/04/25 1147 Specimen: Swab from Nasopharynx Updated: 02/04/25 1159 Concurrent Antibiotics: Anti-infectives (From admission, onward) Start Dose/Rate Route Frequency Ordered Stop 02/05/25 1300 vancomycin (VANCOCIN) 750 mg in sodium chloride 0.9 % 250 mL IVPB W/ADAPTER Placed in Followed by Linked Group 15 mg/kg ?? 56.9 kg 250 mL/hr over 60 Minutes intravenous Every 24 hours 02/04/25 1245 02/04/25 1700 piperacillin-tazobactam (ZOSYN) 3.375 g in sodium chloride 0.9 % 50 mL IVPB W/ADAPTER Placed in Followed by Linked Group 3.375 g 12.5 mL/hr over 4 Hours intravenous Every 8 hours 02/04/25 1208 02/04/25 1300 piperacillin-tazobactam (ZOSYN) 4.5 g in sodium chloride 0.9 % 50 mL IVPB W/ADAPTER Placed in Followed by Linked Group 4.5 g 100 mL/hr over 30 Minutes intravenous Once 02/04/25 1208 02/04/25 1300 vancomycin (VANCOCIN) 1,250 mg in sodium chloride 0.9 % 250 mL IVPB W/ADAPTER Placed in Followed by Linked Group 20 mg/kg ?? 56.9 kg 167 mL/hr over 90 Minutes intravenous Once 02/04/25 1245 Recent Vancomycin Serum Concentrations: Indication: pneumonia Goal Vancomycin Range: AUC 400-600 mcg*hr/mL Assessment . Patient is being initiated on vancomycin therapy ?? Renal function assessment: Stable ?? No vancomycin level as been collected for this patient ?? Patient-specific risk-factors for nephrotoxicity include: concomitant nephrotoxic medications. Plan ?? Will initiate vancomycin loading dose of 1250 mg IV x 1 dose, followed by a maintenance dose of vancomycin 750 mg IV with a dosing interval of every 24 hours ?? Will obtain peak and trough at steady state ?? Please see electronic record for orders Pharmacy Dosing Service to follow serum concentrations and adjust as needed based on the patient's clinical status. Thank you for consulting. Marisol Monk RPH * Babita Estrella PharmD - 02/04/2025 12:09 PM EDT [facility] Department of Pharmacy Pharmacist to Physician Communication The dose of piperacillin/tazobactam for pneumonia (facility acquired) has been changed to 4.5 gramsas a loading dose to be given over 30 minutes followed by 3.375 grams every 8 hours to be given over 4 hours per the [facility] approved extended-infusion beta-lactam policy, based on an estimated creatinine clearance is 143.1 mL/min (A) (by C-G formula based on SCr of 0.31 mg/dL (L)). Thank you, Babita Estrella PharmD documented in this encounter H&P Notes * Yazmin Rodgers, DO - 02/04/2025 2:01 PM EDT Images from the original note were not included. Adult ICU History & Physical Patient - Minnie Cortez Age - 64 y.o. - 1960 Date of Admission - 02/04/2025 10:58 AM Chief Complaint Altered mental status, GCS 6 requiring intubation History of Present Illness Minnie Cortez is a 64 y.o. female with a past medical history of chronic hypercarbic respiratory failure secondary to COPD on 3L O2 (baseline CO2: 60), WILIAN, and paroxysmal A-Fib on Warfarin s/p prior DCCV, CTI RFA ablation with dual-chamber pacemaker placement on previous admission one week ago. Patient was recently hospitalized at [facility] from 02/03 01/30 due to Afib with RVR, and situation was C/B intubation sedation in the ICU due to altered mentation and removing BiPAP machine from progressive unit. Patient was extubated after a couple of days, and had AV node RFA with dual chamber pacemaker placement by electrophysiology and recommended to continue flecainide and metoprolol if converted back to AFib with RVR. Patient was discharged on therapeutic range Coumadin INR 2.8, and was sent toS near [place]. Very little information was received from handoff from [facility], however patient was found unresponsive at SNF and had a GSC score of [address] to the hospital and decreased to 6 which required intubation for protection of airway. Patient was then transferred back to [facility] ICU for concern of decompensation. CT brain without contrast and CT chest abdomen and pelvis with contrast weredone at [place], and only remarkable finding was pleural effusion b/l With beifl-vveqcyh-zlct-left, and some anasarca in the abdomen. Oliveros interrogation of AICD showed no event occurred any time during this morning or afternoon. Electrophysiology was consulted for evaluation as patient is telemet ry showed concerns for NSVT. No further information was known, and patient was intubated and sedated upon arrival. Moving all 4 extremities spontaneously. Past Medical History: Past Medical History: Diagnosis Date Acute respiratory failure ([facility]) 09/02/2022 ARF (acute respiratory failure) ([facility]) 09/02/2022 Chronic pain Emphysema ([facility]) Hypertension Sleep apnea Past Surgical History: Past Surgical History: Procedure Laterality Date CENTRAL LINE 01/25/2025 EP - Ablation. flutter carto N/A 06/19/2022 Performed by Ivonne Manzanares MD at [facility] (EP) EP Invasive Oliveros single-chamber pacemaker/AV node ablation N/A 01/28/2025 Performed by Ivonne Manzanares MD at [facility] (EP) Home Medications: Prior to Admission medications Medication Sig Start Date End Date Taking? Authorizing Provider acetaminophen (TYLENOL) 325 mg tablet Take 2 tablets (650 mg total) by mouth every 6 (six) hours asneeded for pain. 01/25/25 Steve Manzanares MD albuterol (ACCUNEB) 0.63 mg/3 mL nebulizer solution USE 1 VIAL IN NEBULIZER MACHINE EVERY 4 HOURS NEEDED FOR WHEEZING FOR UP TO 30 DAYS. 06/27/22 Tammy Baca MD albuterol (PROVENTIL HFA;VENTOLIN HFA) 90 mcg/actuation inhaler Inhale 2 puffs every 6 (six) hours as needed for wheezing. Patient prefers Ventolin 09/26/22 Viki Gunter DO albuterol (PROVENTIL,VENTOLIN) 2.5 mg /3 mL (0.083 %) nebulizer solution Inhale 3 mL (2.5 mg total)by nebulization 4 (four) times a day as needed for wheezing. 09/30/24 Viki Gunter DO azithromycin (ZITHROMAX) 250 mg tablet Take 1 tablet (250 mg total) by mouth 3 (three) times a week. Friday, , Friday02/02/25 02/02/26 Noehlia Edwards APRN-RUBIN busPIRone (BUSPAR) 5 mg tablet Take 2 tablets (10 mg total) by mouth nightly. Not In System Ref Prov duloxetine HCl (DULOXETINE ORAL) Take 80 mg by mouth in the morning. Not In System Ref Prov flecainide (TAMBOCOR) 50 mg tablet Take 1 tablet (50 mg total) by mouth every 12 (twelve) hours. 01/30/25 ANGELICA Jasso zwzwznhwxvu-bkxdrcwce-nycimowj (TRELEGY ELLIPTA) 100-62.5-25 mcg blister with device Inhale 1 puff in the morning. Lot Number: [id number] Expiration Date: 01/2026 Lot Number: [id number] Expiration Date: 02/2026. 11/15/24 Viki Gunter DO furosemide (LASIX) 20 mg tablet Take 1 tablet (20 mg total) by mouth daily. 01/30/25 ANGELICA Jasso gabapentin (NEURONTIN) 300 mg capsule Take 1 capsule (300 mg total) by mouth 3 (three) times a day.01/30/25 ANGELICA Jasso guaiFENesin (MUCINEX) 600 mg tablet extended release 12hr Take 1 tablet (600 mg total) by mouth every 12 (twelve) hours. Not In System Ref Prov hydrOXYzine (ATARAX) 25 mg tablet Take 1 tablet (25 mg total) by mouth as needed in the morning and1 tablet (25 mg total) as needed at noon and 1 tablet (25 mg total) as needed in the evening and 1 tablet (25 mg total) as needed before bedtime. Not In System Ref Prov ipratropium-albuteroL (DUONEB) 0.5 mg-3 mg(2.5 mg base)/3 mL nebulizer Inhale 3 mL by nebulization in the morning and 3 mL at noon and 3 mL in the evening. 01/30/25 ANGELICA Jasso liothyronine (CYTOMEL) 25 MCG tablet Take 1 tablet (25 mcg total) by mouth in the morning. 01/30/25 ANGELICA Jasso loratadine (CLARITIN) 10 mg tablet Take 1 tablet (10 mg total) by mouth in the morning. Not In System Ref Prov metoprolol succinate XL (TOPROL XL) 50 mg 24 hr tablet Take 1 tablet (50 mg total) by mouth in the morning. 01/30/25 ANGELICA Jasso oxygen Inhale continuously. Not In System Ref Prov pravastatin (PRAVACHOL) 10 mg tablet TAKE 1 TABLET BY MOUTH IN THE EVENING. Must complete fasting labs for further fills 12/07/24 Iva ANGELICA Walker traZODone (DESYREL) 50 mg tablet Take 0.5 tablets (25 mg total) by mouth nightly. Not In System RefProv warfarin (COUMADIN) 1 mg tablet 1mg on 01/30 then 2.5mg qd starting 01/31/2025 01/30/25 ANGELICA Jasso Allergies: Lyrica [pregabalin], Zonisamide, and Nickel Social History: reports that she has quit smoking. She has never used smokeless tobacco. She reports that she does not currently use alcohol. She reports that she does not use drugs. Family History: Family History Problem Relation Age of Onset Cancer Mother throat Cancer Father Parkinsonism Sister Alcohol abuse Brother Alcohol abuse Brother Review of Systems: Review of Systems Unable to perform ROS Physical Exam BP 117/63 Pulse 70 Temp 36.7 ??C (98 ??F) (Oral) Resp 17 Ht 157.5 cm (5' 2 ) Wt 56.9 kg (125 lb 7.1 oz) SpO2 91% BMI 22.94 kg/m?? Intake/Output Summary (Last 24 hours) at 02/04/2025 1401 Last data filed at 02/04/2025 1110 Gross per 24 hour Intake -- Output 200 ml Net -200 ml Respiratory Source: O2 Device: Endotracheal tube Admission weight: 57.2 kg (126 lb 1.7 oz) Physical Exam Constitutional: Appearance: She is ill-appearing. HENT: Mouth/Throat: Mouth: Mucous membranes are dry. Cardiovascular: Rate and Rhythm: Normal rate. Rhythm irregular. Pulmonary: Breath sounds: Wheezing present. No rhonchi or rales. Comments: Intubated and sedated Abdominal: Tenderness: There is no abdominal tenderness. There is no guarding or rebound. Neurological: Mental Status: She is disoriented. Comments: sedated Labs/Imaging Recent Results (from the past 24 hours) Mrsa Pcr nasal swab Collection Time: 02/04/25 11:47 AM Specimen: Nostril; Swab Result Value Ref Range MRSA PCR NASAL Negative Negative Resp Pathogens Panel/SARS CoV-2 Collection Time: 02/04/25 11:47 AM Result Value Ref Range SARS COV 2 BY PCR Not Detected Not Detected ADENOVIRUS Not Detected Not Detected CORONAVIRUS 229E Not Detected Not Detected CORONAVIRUS HKU1 Not Detected Not Detected CORONAVIRUS NL63 Not Detected Not Detected CORONAVIRUS OC43 Not Detected Not Detected HUMAN METAPNEUVIRUS Not Detected Not Detected RHINO/ENTEROVIRUS Not Detected Not Detected INFLUENZA A Not Detected Not Detected INFLUENZA B Not Detected Not Detected PARAINFLUENZA 1 Not Detected Not Detected PARAINFLUENZA 2 Not Detected Not Detected PARAINFLUENZA 3 Not Detected Not Detected PARAINFLUENZA 4 Not Detected Not Detected RESP SYNCYTIAL VIRUS Not Detected Not Detected BORD PARAPERTUSSIS Not Detected Not Detected BORDETELLA PERTUSSIS Not Detected Not Detected CHLAM.PNEUMONIAE Not Detected Not Detected MYCOPLASMA PNEUMONIAE Not Detected Not Detected Narrative The [employer] Respiratory Panel 2.1 (RP2.1) is a multiplexed nucleic acid test intended for the simultaneous qualitative detection and differentiation of nucleic acid from multiple viral and bacterial respiratory organisms, including nucleic acid from Severe Acute Respiratory Syndrome Coronavirus 2 (SARS-CoV-2), in nasopharyngeal swabs obtained from individuals suspected of COVID-19 by their healthcare provider. Testing is limited to laboratories certified under the Clinical Laboratory Improvement Amendments of 1988 (CLIA), to perform high complexity or moderate complexity tests. SARS-CoV-2 RNA and nucleic acids from the other respiratory viral and bacterial organisms identified by this test are generally detectable in nasopharyngeal swabs during the acute phase of infection.The detection and identification of specific viral and bacterial nucleic acids from individuals exhibiting signs and/or symptoms of respiratory infection is indicative of the presence of the identified microorganism and aids in the diagnosis of respiratory infection if used in conjunction with other clinical and epidemiological information. Positive results are indicative of the presence of the identified organism, but do not rule out co-infection with other pathogens. The agent(s) detected by the [employer] RP2.1 may not be the definite cause of disease and clinical correlation with patient history and other diagnostic information is necessary to determine patient infection status. Negative results in the setting of a respiratory illness may be due to infection with pathogens notdetected by this test, or lower respiratory tract infection that may not be detected by a nasopharyngeal specimen. Negative results do not preclude SARS-CoV-2 infection and should not be used as the sole basis for patient management decisions. Negative RADHA-CoV-2 results must be combined with clinical observations, patient history and epidemiological information. Negative results for other organisms identified by the test may require additional laboratory testing when evaluating a patient with possible respiratory tract infection. Troponin I, High Sensitivity Collection Time: 02/04/25 12:08 PM Narrative The following orders were created for panel order Troponin I, High Sensitivity. Procedure Abnormality Status --------- ------ Troponin I, High Sensiti...[[id number]] In process Troponin I, High Sensiti...[[id number]] Please view results for these tests on the individual orders. Protime & INR Collection Time: 02/04/25 12:08 PM Result Value Ref Range PROTIME 36.4 (H) 9.8 - 13.2 sec INR 3.2 (H) 0.9 - 1.2 CBC auto differential Collection Time: 02/04/25 12:08 PM Result Value Ref Range WBC 11.9 (H) 4 - 11 x10E9/L RBC Count 2.80 (L) 3.8 - 5.2 X10E12/L Hemoglobin 7.9 (L) 11.7 - 15.5 g/dL Hematocrit 25.6 (L) 35 - 47 % MCV 92 80 - 100 fL MCH 28.3 27 - 34 pg MCHC 30.9 (L) 32 - 36 g/dL RDW 23.3 (H) 11.5 - 15 % Platelet Count 236 150 - 450 X10E9/L MPV 7.9 7 - 12 fL Lactate w/ Reflex Collection Time: 02/04/25 12:08 PM Result Value Ref Range LACTATE W/REFLEX 1.6 0.4 - 2.0 mmol/L Narrative Result did not trigger repeat Lactate, re-order if needed. Blood Gas, Arterial Collection Time: 02/04/25 12:13 PM Result Value Ref Range Sample type ARTERIAL pH, Arterial 7.555 (H) 7.350 - 7.450 pCO2, Arterial 55.5 (H) 35.0 - 45.0 mmHg PO2, Arterial 161 (H) 80 - 100 mmHg Base, Excess 24.0 (H) 0.0 - 2.0 mmol/L HCO3, Arterial 49.1 (H) 22.0 - 26.0 mmol/L %O2 Saturation, Arterial 100.0 >90.0 % Diego's test Pass SPO2 161 % Sample site R Brach Insp. O2 conc. 50 % Source Of Oxygen Vent X-ray chest 1 view Result Date: 02/04/2025 Chest radiograph dated: 02/04/2025. Reason for study: new line cvc. Comparison studies: Chest x-ray from 01/28/2025. Technique: Portable upright chest view AP. Findings/impression: 1. Endotracheal tubedistal tip is approximately 3.5 cm from the diane. Right central venous catheter with the distal tip at the central right brachiocephalic vein. Enteric tube is seen coursing below the level of the diaphragm with the distal tip not seen. 2. Nonenlarged cardiomediastinal silhouette. Possible trace interstitial edema more pronounced on the right. 3. Small bilateral pleural effusions. Scant bibasilar airspace opacities which may relate to subsegmental atelectatic change versus developing pneumoniain the appropriate clinical setting. Minimally improved aeration of right lung base. 4. No definitive pneumothorax. Finalized by Aden Ellsworth MD on 02/04/2025 1:21 PM Microbiology Results Procedure Component Value Units Date/Time Mrsa Pcr nasal swab [[id number]] (Normal) Collected: 02/04/25 1147 Specimen: Swab from Nostril Updated: 02/04/25 1318 MRSA PCR NASAL Negative Resp Pathogens Panel/SARS CoV-2 [[id number]] (Normal) Collected: 02/04/25 1147 Specimen: Swab from Nasopharynx Updated: 02/04/25 1256 SARS COV 2 BY PCR Not Detected ADENOVIRUS Not Detected CORONAVIRUS 229E Not Detected CORONAVIRUS HKU1 Not Detected CORONAVIRUS NL63 Not Detected CORONAVIRUS OC43 Not Detected HUMAN METAPNEUVIRUS Not Detected RHINO/ENTEROVIRUS Not Detected INFLUENZA A Not Detected INFLUENZA B Not Detected PARAINFLUENZA 1 Not Detected PARAINFLUENZA 2 Not Detected PARAINFLUENZA 3 Not Detected PARAINFLUENZA 4 Not Detected RESP SYNCYTIAL VIRUS Not Detected BORD PARAPERTUSSIS Not Detected BORDETELLA PERTUSSIS Not Detected CHLAM.PNEUMONIAE Not Detected MYCOPLASMA PNEUMONIAE Not Detected Narrative: The [employer] Respiratory Panel 2.1 (RP2.1) is a multiplexed nucleic acid test intended for the simultaneous qualitative detection and differentiation of nucleic acid from multiple viral and bacterial respiratory organisms, including nucleic acid from Severe Acute Respiratory Syndrome Coronavirus 2 (SARS-CoV-2), in nasopharyngeal swabs obtained from individuals suspected of COVID-19 by their healthcare provider. Testing is limited to laboratories certified under the Clinical Laboratory Improvement Amendments of 1988 (CLIA), to perform high complexity or moderate complexity tests. SARS-CoV-2 RNA and nucleic acids from the other respiratory viral and bacterial organisms identified by this test are generally detectable in nasopharyngeal swabs during the acute phase of infection.The detection and identification of specific viral and bacterial nucleic acids from individuals exhibiting signs and/or symptoms of respiratory infection is indicative of the presence of the identified microorganism and aids in the diagnosis of respiratory infection if used in conjunction with other clinical and epidemiological information. Positive results are indicative of the presence of the identified organism, but do not rule out co-infection with other pathogens. The agent(s) detected by the [employer] RP2.1 may not be the definite cause of disease and clinical correlation with patient history and other diagnostic information is necessary to determine patient infection status. Negative results in the setting of a respiratory illness may be due to infection with pathogens notdetected by this test, or lower respiratory tract infection that may not be detected by a nasopharyngeal specimen. Negative results do not preclude SARS-CoV-2 infection and should not be used as the sole basis for patient management decisions. Negative RADHA-CoV-2 results must be combined with clinical observations, patient history and epidemiological information. Negative results for other organisms identified by the test may require additional laboratory testing when evaluating a patient with possible respiratory tract infection. ASSESSMENT Acute encephalopathy GCS of 6 requiring intubation for airway protection Acute on chronic hypoxic hypercarbic respiratory failure s/p Intubation on 02/04 unknown etiology baseline pCO2 approx 60 CT chest w/ contrast (02/04) showed right greater than left b/l pleural effusions Healthcare acquired pneumonia Paroxysmal atrial fibrillation/flutter with RVR s/p CTI RFA ablation 2021, AV node ablation and dual-chamber pacemaker placement 01/28/25 COPD on 3L O2, on Azithromycin 3 times weekly Normocytic anemia Hypothyroidism WILIAN PLAN Admit to ICU for monitoring ABG 7.555/55.5/161/49.1 on 02/04 RPP negative DuoNebs ordered for wheezing Oliveros interrogation of AICD resulted with no events in the past 24 hours Pending radiology imaging push from [facility] to [facility] Pending sepsis workup Continue Vancomycin and Zosyn Restarted on metoprolol and flecainide for arrhythmia control Requiring phenylephrine pressor support Discontinue Levophed On propofol 45 mcg/kg/min for sedation Electrophysiology consulted, recommendations appreciated Continue monitoring and replete electrolytes per ICU protocol Continue home medications as appropriate This progress note was completed using a voice dub room engineer system. Every effort was made to ensure accuracy. However, inadvertent computerized dub room engineer errors may be present. Yazmin Rodgers DO Internal Medicine Resident 2:01 PM 02/04/25 Cosigned by Alejo Villalobos MD at 02/05/2025 9:12 AM EDT Associated attestation - Alejo Villalobos MD - 02/05/2025 9:12 AM EDT I discussed the patient with the resident team on the day of the encounter and agree with documentation as above. Please note there may be additional personal documentation from me 64 year old female with past medical history of COPD, WILIAN and Afib on coumadin presented due to altered mental status. She required intubation and MV. CT chest showed bilateral pleural effusion. ABG showed metabolic alkalosis. Se was started on empiric antibiotics and steroids. Cardiology consultedfor concerns for Non sustained VT and device interrogation. Central line and A line were placed. Alejo Villalobos MD Pulmonary and critical care [facility] documented in this encounter Procedure Notes * Derrek Robles RN - 02/09/2025 1:11 PM EDT PICC line placement note: Dynamic acls nurse: Derrek Robles RN Prescribed IV therapy: 2 weeks vanco History / Labs / Allergies were reviewed prior to insertion Bedside time out performed with nurse MARLIN Traore utilizing two identifiers Consent completed by patient and is located in the chart. PICC: Product type: 4 fr SL Bard PowerPICC inserted into the right brachial vein Ref: [id number] Lot: [id number] Exp: 12/13/2025 Trimmed at 38 cm with 0 cm external Number of attempts: 2 (FIRST ATTEMPT SHOWED SHORT ON XRAY IMAGE SO OVERWIRE EXCHANGE COMPLETED AND LENGTH ADDED TO LINE.) Dressed per protocol with statlock and CHG tegaderm Lidocaine used during procedure: intradermal administration conc 1% approximately 1mL Lot #: [id number] Exp: 12-14-2026 MARLIN Traore aware CXR is needed prior to PICC use. CXR ordered and awaiting report. RN aware new IVtubing is required. * Yazmin Rodgers DO - 02/04/2025 5:04 PM EDT Arterial Line Insertion Procedure Performed by: Yazmin Rodgers Attending Physician: Dr. Villalobos Pre-procedure Diagnosis: shock Post-procedure Diagnosis: shock Indication: arterial blood gases and shock Procedure: A time out was performed prior to the procedure. The skin over the right brachial arterywas prepped with Chlorhexidine and draped in a sterile fashion. Local anesthesia was performed . A arterial line kit 20 gauge catheter was then inserted into the vessel. The transducer set was then attached and securely fastened to the skin with sutures. Waveforms on the monitor were observed and found to be good waveform. The patient had good distal perfusion after the procedure. The site was then dressed in a sterile fashion. Complications: none. Condition: The patient tolerated the procedure well. Yazmin Rodgers DO Internal Medicine Resident 5:06 PM 02/04/25 Cosigned by Alejo Villalobos MD at 02/05/2025 9:22 AM EDT Associated attestation - Alejo Villalobos MD - 02/05/2025 9:22 AM EDT I wss not present for the procedure but assume responsibility * Yazmin Rodgers DO - 02/04/2025 5:00 PM EDT CENTRAL LINE PROCEDURE NOTE ATTENDING: Dr. Villalobos PREFORMED BY: Yazmin Rodgers PROCEDURE: Central Line placement PREOPERATIVE DIAGNOSES: shock POSTOPERATIVE DIAGNOSIS: Same INDICATION: requiring pressors SEDATION: As noted in EMR. LOCAL ANESTHESIA: Lidocaine CONSENT: Consent was obtained from [id number] (POA) after explaining risks, benefits, alternatives, side effects and complications in detail. Have mentioned to patient/family that the complications could include but not limited to hemorrhage, arterial injury, hematoma, bacteremia, sepsis, infections,and . Patient/family state that she/he understands the same and would like to proceed with the procedure. TIME-OUT: Performed & correct patient and site were identified. PROCEDURE IN DETAIL: The procedure was performed under complete sterile conditions.The patient was placed in Trendelenburg position. The right side of the neck was prepped using chlorhexidine scrub & draped with 3/4 sheath drape. The right internal jugular vein was identified using the ultrasound. Anesthesia was achieved using 1% lidocaine. Using real-time USG guidance, the introducer needle was inserted into the right internal jugular vein . Venous blood was withdrawn. The syringe was removed and a guidewire was advanced into the introducer needle. The guidewire was visualized in the vein by ultrasound. A small incision was made at the skin surface with a scalpel and the introducer needle was exchanged for a dilator over the guidewire. After appropriate dilation was obtained, the dilator was exchanged over the wire for a central venous catheter. The wire was removed and all ports of the catheter aspirated and flushed properly following which catheter was sutured in place . A sterile dressing was placed over the catheter at the insertion site. The patient tolerated the procedurewithout any hemodynamic compromise. At time of procedure completion, all ports aspirated and flushed properly. COMPLICATIONS: No acute immediate complications noted. ESTIMATED BLOOD LOSS: 5 cc Yazmin Rodgers DO Internal Medicine Resident 5:01 PM 02/04/25 Cosigned by Alejo Villalobos MD at 02/05/2025 9:22 AM EDT Associated attestation - Alejo Villalobos MD - 02/05/2025 9:22 AM EDT I was not present for the procedure but assume responsibility documented in this encounter Consult Notes * Yusef Morales MD - 02/11/2025 9:47 AM EDT Images from the original note were not included. Adult ICU progress Note Patient - [facility] Cort[facility] 64 [facility] 1960 [id number] Date of Admission - 02/04/2025 10:58 AM ICU Length of Stay: 5d 2h Interval History Minnie Cortez is a 64 y.o. female with a past medical history of chronic hypercarbic respiratory failure secondary to COPD on 3L O2 (baseline CO2: 60), WILIAN, and paroxysmal A-Fib on Warfarin s/p prior DCCV, CTI RFA ablation with dual-chamber pacemaker placement on previous admission one week ago. Patient was recently hospitalized at [facility] from 02/03 01/30 due to Afib with RVR, and situation was C/B intubation sedation in the ICU due to altered mentation and removing BiPAP machine from progressive unit. Patient was extubated after a couple of days, and had AV node RFA with dual chamber pacemaker placement by electrophysiology and recommended to continue flecainide and metoprolol if converted back to AFib with RVR. Patient was discharged on therapeutic range Coumadin INR 2.8, and [place]. Very little information was received from handoff from [facility], however patient was found unresponsive at SNF and had a GCS score of [address] to the hospital and decreased to 6 which required intubation for protection of airway. Patient was then transferred back to [facility] ICU for concern of decompensation. CT brain without contrast and CT chest abdomen and pelvis with contrast weredone at [place], and only remarkable finding was pleural effusion b/l With [id number]-mahmlow-tjun-left, and some anasarca in the abdomen. Oliveros interrogation of AICD showed no event occurred any time during this morning or afternoon. Electrophysiology was consulted for evaluation as patient is telemet ry showed concerns for NSVT. No further information was known, and patient was intubated and sedated upon arrival. Moving all 4 extremities spontaneously. 02/05/2025: Patient was extubated. Failed swallow bedside swallow test. Warfarin subtherapeutic; initiated on heparin. 02/07: BCx x2 Staphylococcus hominis, continue vancomycin and can discontinue Zosyn per ID. Weaning off Precedex and restarted all anti anxiolytic medications trazodone, Atarax, BuSpar. Subjective Patient seen and evaluated at bedside, overnight patient's Burr was removed, and PVR showed retention of 390 cc, so patient was straight cathed. We will assess if patient requires Burr throughout the day, and start planning for transfer/discharge at this time. Patient doing well this encounter, and states that she feels much better after PT evaluation yesterday. We will require 2 weeks of vancomycin IV treatment for coagulase-negative Staph hominis bacterial culture with EOT 02/18/2025. TTE negative for vegetation, however ID recommending 2 weeks and 4 weeksafter antibiotics course is complete to recheck blood cultures. PICC line ordered Patient will require prior authorization to [facility] prior to discharge. Interval history 02/11/2025 Seen and examined at bedside and has been doing well on the floor. We will continue to wear overnight BiPAP. Objective Vitals Temp: [36.6 ??C (97.9 ??F)-37.1 ??C (98.8 ??F)] 37.1 ??C (98.8 ??F) Pulse: [69-70] 70 Resp: [18-24] 22 BP: (110-141)/(63-101) 141/77 SpO2: [93 %-100 %] 100 % O2 Device: Nasal cannula O2 Flow Rate (L/min): [3 L/min-4 L/min] 3 L/min Weight: Admission weight: 57.2 kg (126 lb 1.7 oz) Wt Readings from Last 3 Encounters: 02/11/25 60.5 kg (133 lb 6.1 oz) 01/30/25 57.2 kg (126 lb 1.7 oz) 01/14/25 59 kg (130 lb 1.1 oz) Input/Output: Intake/Output Summary (Last 24 hours) at 02/11/2025 0974 Last data filed at 02/11/2025 0725 Gross per 24 hour Intake 1403.01 ml Output 2550 ml Net -1146.99 ml Ventilator: Settings Vent Mode: S/T FiO2 (%): 40 % Resp Rate (Set): 8 Vt (Set, mL): 450 mL Avea Vt (Set, L): 0.45 Liter PEEP/CPAP (cm H2O): 8 cm H20 MAP: 7.7 I:E Ratio: 1:3:9 Insp Time (sec): 1 sec Insp Rise Time (%): 3 % Trigger Sensitivity Pressure (cm H2O): 1 cm H2O IPAP: 18 EPAP: 6 Humidification: Heat and moisture exchanger Physical Exam Constitutional: General: She is awake. She is not in acute distress. Appearance: Normal appearance. Interventions: Face mask in place. HENT: Head: Normocephalic and atraumatic. Eyes: General: No scleral icterus. Conjunctiva/sclera: Conjunctivae normal. Pupils: Pupils are equal, round, and reactive to light. Cardiovascular: Rate and Rhythm: Normal rate and regular rhythm. Pulses: Normal pulses. Heart sounds: Normal heart sounds. Pulmonary: Effort: Prolonged expiration present. No respiratory distress. Comments: Globally decreased breath sounds bilaterally. On BiPAP Abdominal: General: Bowel sounds are normal. There is no distension. Tenderness: There is no abdominal tenderness. There is no guarding or rebound. Musculoskeletal: General: No swelling or tenderness. Cervical back: Normal range of motion and neck supple. Right lower leg: No edema. Left lower leg: No edema. Skin: Coloration: Skin is not jaundiced or pale. Neurological: General: No focal deficit present. Mental Status: She is alert. Mental status is at baseline. She is disoriented. Cranial Nerves: No cranial nerve deficit. Motor: Tremor present. Comments: Precedex on. Following commands. Psychiatric: Mood and Affect: Mood normal. Behavior: Behavior normal. Behavior is cooperative. Lab Results Results from last 7 days Lab Units 02/11/25 0519 02/10/25 0502/09/25 0117 WBC x10E9/L 6.6 5.1 5.1 HEMOGLOBIN g/dL 10.2* 9.6* 9.5* HEMATOCRIT % 31.9* 30.5* 29.8* PLATELETS X10E9/L 159 129* 129* Results from last 7 days Lab Units 02/11/25 0519 02/10/25 0518 02/09/25 0117 02/07/25 0217 02/06/25 0201 APTT sec -- -- -- -- 26 INR 2.1* 1.8* 2.3* < > 1.8* < > = values in this interval not displayed. Results from last 7 days Lab Units 02/11/25 0502/10/25 0518 02/09/25 0117 SODIUM mmol/L 146 145 145 POTASSIUM mmol/L 3.8 4.3 4.3 CHLORIDE mmol/L 97* 98 100 CO2 mmol/L >45* 45* 42* BUN mg/dL 12 10 13 CREATININE mg/dL 0.28* 0.28* 0.39* CALCIUM mg/dL 8.3* 8.3* 8.3* PHOSPHORUS mg/dL 2.6 2.5 2.8 MAGNESIUM mg/dL 1.8 1.9 2.0 Results from last 7 days Lab Units 02/11/25 0502/10/25 0518 02/09/25 0117 ALBUMIN g/dL 3.4 3.2 3.5 PROTEIN TOTAL g/dL 5.1* 4.9* 5.3* ALT U/L 12 13 14 AST U/L 9 9 12 ALK PHOS U/L 49 46 46 Results from last 7 days Lab Units 02/11/25 0502/10/25 0518 02/09/25 0117 GLUCOSE mg/dL 194* 87 148* Lab Results Component Value Date HGBA1C 4.8 02/04/2025 Results from last 7 days Lab Units 02/05/25 1011 02/04/25 1755 02/04/25 1208 TROPONIN I HS ng/L -- 81* 96* BNP pg/mL 169* -- 302* Results from last 7 days Lab Units 02/04/25 1208 VITAMIN B 12 pg/mL 200 FOLATE ng/mL 12.0 FERRITIN ng/mL 90 IRON ug/dL 34* IRON BINDING CAPACITY ug/dL 301 IRON SATURATION % SATURATION 11* Lab Results Component Value Date SPECIFICGRA 1.032 02/04/2025 LEUKOCYTE Negative 02/04/2025 UROBILINOGEN <1.1 eu/dL 02/04/2025 Radiology X-ray chest 1 view Result Date: 02/10/2025 XR CHEST 1 VW HISTORY: Hypoxia COMPARISON: 02/09/2025. CT chest 02/04/2025 FINDINGS: AP portable upright radiograph obtained. Right-sided PICC line terminates in the SVC. Stable appearance of cardiac pacing device and spinal cord stimulator leads. Emphysematous changes. Small right pleural effusion is mildly improved. Similar appearance of mildly prominent interstitial markings compatible with mildpulmonary edema or chronic interstitial lung disease. IMPRESSION: * Mildly improved small right pleural effusion. * Otherwise no significant interval change. Approved by Jody Mohamud DO on 02/10/2025 9:26 AM I, Manuel Fung MD have personally reviewed the image(s) and agree with and/or edited the report Finalized by Manuel Fung MD on 02/10/2025 11:23 AM X-ray chest 1 view Result Date: 02/09/2025 PROCEDURE: Single AP view of the chest. INDICATION: PICC ADJUSTED, CONFIRM NEW PLACEMENT . COMPARISON: Serial chest radiographs most recently dated earlier today at 1:02 PM. FINDINGS: Support lines,tubes, devices, surgical hardware, material: Left chest wall AICD/pacemaker with leads overlying the right atrium and right ventricle. Spinal nerve stimulator. Interval repositioning of right- sided PICC with tip overlying the cavoatrial junction. Lungs and Pleura: See Impression. No pneumothorax. Small layering right pleural effusion. Trace left pleural effusion. Cardiovascular and Mediastinum: The cardiomediastinal silhouette appears grossly stable noting a calcified tortuous aorta. IMPRESSION: 1. Interval repositioning of right-sided PICC with tip overlying the cavoatrial junction. 2. Similar mild interstitial edema and small right pleural effusion. 3. Trace left pleural effusion. 4. Emphysema.. Finalized by Kaci Rodriguez MD on 02/09/2025 3:31 PM X-ray chest 1 view Result Date: 02/09/2025 EXAM: XR CHEST 1 VW CLINICAL INFORMATION: picc placement. COMPARISON: 02/05/2025 FINDINGS: There is a right approach PICC. The tip terminates over the right apex in the right brachiocephalic vein. Stable mild interstitial edema with trace pleural effusions. There is mild right basilar atelectasis. Stable cardiomediastinal silhouette. The endotracheal tube, gastric tube, and right IJ central venouscatheter has been removed in the interval. Stable left chest wall pacemaker and leads. IMPRESSION: 1. Right approach PICC with the tip terminating over the right apex in the brachiocephalic vein. 2. Interval removal of the endotracheal tube, gastric tube, and right IJ central venous catheter. Thereis no evidence for a pneumothorax or shift of the mediastinal structures. 3. Mild interstitial edema with trace pleural effusions and mild right basilar atelectasis. Finalized byDaniel Moreland MD on 02/09/2025 1:21 PM Ultrasound chest left Result Date: 02/08/2025 CLINICAL INFORMATION: Pain and swelling. COMPARISON: None. Findings: Ultrasound scanning in the left chest performed. There is a complex fluid collection measuring 6.6 x 6.2 x 2.0 cm. No internal Doppler flow. The proximity of this abnormality to the patient's pacemaker is difficult to assess may be adjacent to this region. IMPRESSION: Complex fluid collection likely involuting hematoma, other etiologies could include abscess. Follow-up recommended to document resolution. Finalized by Jace Glover MD on 02/08/2025 2:39 PM Echo complete W/O contrast Result Date: 02/08/2025 Left Ventricle: Left ventricle appears normal in size. There is mild increased wall thickness/hypertrophy. Systolic function is normal with an ejection fraction of 65-70%. Unable to assess diastolic function due to atrial fibrillation/flutter. Tricuspid Valve: There is moderate regurgitation. RVSP c alculated at 50 mmHg. RVSP is based on RA pressure of 8 mmHg. Right Ventricle: Systolic function isnormal. Normal tricuspid annular plane systolic excursion. A pacer wire is present in the right ventricle. Aorta: The aortic root is normal in size. Pericardium: There is no pericardial effusion. Cultures Microbiology Results Procedure Component Value Units Date/Time Blood culture #1 [[id number]] Collected: 02/05/25 1231 Specimen: Blood, Venous Updated: 02/10/25 1401 CULTURE RESULTS NO GROWTH 5 DAYS Blood culture #2 [[id number]] Collected: 02/05/25 1231 Specimen: Blood, Venous Updated: 02/10/25 1401 CULTURE RESULTS NO GROWTH 5 DAYS Blood culture #1 [[id number]] (Abnormal) (Susceptibility) Collected: 02/04/25 1335 Specimen: Blood, Venous Updated: 02/07/25 0749 CULTURE RESULTS Staphylococcus hominis GRAM STAIN Gram positive cocci in clusters Narrative: Suboptimal volume of blood collected, Results may be affected. Susceptibility Staphylococcus hominis Not Specified Cefazolin Resistant (deduced) Clindamycin >=4.0 Resistant Doxycycline 4.0 Susceptible Oxacillin >=4.0 Resistant Trimethoprim + Sulfamethoxazole 4.0 Resistant Vancomycin 2.0 Susceptible Blood culture #2 [[id number]] (Abnormal) (Susceptibility) Collected: 02/04/25 1335 Specimen: Blood, Venous Updated: 02/07/25 0750 CULTURE RESULTS Staphylococcus hominis GRAM STAIN Gram positive cocci in clusters Narrative: Suboptimal volume of blood collected, Results may be affected. Susceptibility Staphylococcus hominis Not Specified Cefazolin Resistant (deduced) Clindamycin >=4.0 Resistant Doxycycline 4.0 Susceptible Oxacillin >=4.0 Resistant Trimethoprim + Sulfamethoxazole 4.0 Resistant Vancomycin 2.0 Susceptible BLOOD CULTURE IDENTIFICATION PANEL [[id number]] (Abnormal) Collected: 02/04/25 1335 Specimen: Blood, Venous Updated: 02/05/25 1049 Staphylococcus species PCR Detected Lower resp/sputum culture inc gram stain: Patient acquired [[id number]] (Abnormal) Collected: 02/04/25 1147 Specimen: Aspirate from Bronchus Updated: 02/06/25 1355 CULTURE RESULTS Few Mackenzie albicans Rare Non-lactose fermenting gram negative bacilli GRAM STAIN >25 White Blood Cells/LPF 1 to 9 Squamous Epithelial Cells/LPF 0 Ciliated Epithelial Cells/LPF Moderate Gram positive cocci in pairs, chains and clusters Few Gram negative bacilli Few Yeast Narrative: Along with Many Normal Respiratory Teresita. Mrsa Pcr nasal swab [[id number]] (Normal) Collected: 02/04/25 1147 Specimen: Swab from Nostril Updated: 02/04/25 1318 MRSA PCR NASAL Negative Resp Pathogens Panel/SARS CoV-2 [[id number]] (Normal) Collected: 02/04/25 1147 Specimen: Swab from Nasopharynx Updated: 02/04/25 1256 SARS COV 2 BY PCR Not Detected ADENOVIRUS Not Detected CORONAVIRUS 229E Not Detected CORONAVIRUS HKU1 Not Detected CORONAVIRUS NL63 Not Detected CORONAVIRUS OC43 Not Detected HUMAN METAPNEUVIRUS Not Detected RHINO/ENTEROVIRUS Not Detected INFLUENZA A Not Detected INFLUENZA B Not Detected PARAINFLUENZA 1 Not Detected PARAINFLUENZA 2 Not Detected PARAINFLUENZA 3 Not Detected PARAINFLUENZA 4 Not Detected RESP SYNCYTIAL VIRUS Not Detected BORD PARAPERTUSSIS Not Detected BORDETELLA PERTUSSIS Not Detected CHLAM.PNEUMONIAE Not Detected MYCOPLASMA PNEUMONIAE Not Detected Narrative: The [employer] Respiratory Panel 2.1 (RP2.1) is a multiplexed nucleic acid test intended for the simultaneous qualitative detection and differentiation of nucleic acid from multiple viral and bacterial respiratory organisms, including nucleic acid from Severe Acute Respiratory Syndrome Coronavirus 2 (SARS-CoV-2), in nasopharyngeal swabs obtained from individuals suspected of COVID-19 by their healthcare provider. Testing is limited to laboratories certified under the Clinical Laboratory Improvement Amendments of 1988 (CLIA), to perform high complexity or moderate complexity tests. SARS-CoV-2 RNA and nucleic acids from the other respiratory viral and bacterial organisms identified by this test are generally detectable in nasopharyngeal swabs during the acute phase of infection.The detection and identification of specific viral and bacterial nucleic acids from individuals exhibiting signs and/or symptoms of respiratory infection is indicative of the presence of the identified microorganism and aids in the diagnosis of respiratory infection if used in conjunction with other clinical and epidemiological information. Positive results are indicative of the presence of the identified organism, but do not rule out co-infection with other pathogens. The agent(s) detected by the [employer] RP2.1 may not be the definite cause of disease and clinical correlation with patient history and other diagnostic information is necessary to determine patient infection status. Negative results in the setting of a respiratory illness may be due to infection with pathogens notdetected by this test, or lower respiratory tract infection that may not be detected by a nasopharyngeal specimen. Negative results do not preclude SARS-CoV-2 infection and should not be used as the sole basis for patient management decisions. Negative RADHA-CoV-2 results must be combined with clinical observations, patient history and epidemiological information. Negative results for other organisms identified by the test may require additional laboratory testing when evaluating a patient with possible respiratory tract infection. Urine Culture Urine, Indwelling Catheter [[id number]] (Abnormal) Collected: 02/04/25 1143 Specimen: Urine, Indwelling Catheter Updated: 02/06/25 1152 CULTURE RESULTS 10,000-50,000 CFU/mL Mackenzie albicans Medications Scheduled: atorvastatin, 10 mg, oral, Daily azithromycin, 250 mg, oral, Once per day on Friday busPIRone, 10 mg, oral, Nightly DULoxetine, 80 mg, oral, Daily ferrous sulfate, 325 mg, oral, Q48H fluticasone furoate-vilanteroL, 1 puff, inhalation, Daily furosemide, 40 mg, intravenous, Once gabapentin, 300 mg, oral, TID ipratropium-albuteroL, 3 mL, nebulization, TID liothyronine, 25 mcg, oral, Daily sennosides-docusate sodium, 2 tablet, oral, BID [COMPLETED] Consult PICC nurse - PICC, , , Once AND sodium chloride, 10 mL, intravenous, Q12H AND sodium chloride, 10 mL, intravenous, PRN AND sodium chloride, 20 mL, intravenous, PRN traZODone, 25 mg, oral, Nightly vancomycin, 1,000 mg, intravenous, Q12H warfarin, 3 mg, oral, Daily Infusions: sodium chloride 0.9 %, 20 mL/hr As Needed: acetaminophen albuterol calcium gluconate OR calcium gluconate OR calcium gluconate dextrose dextrose 50 % in water (D50W) glucagon (human recombinant) guaiFENesin hydrALAZINE HYDROcodone-acetaminophen hydrOXYzine ipratropium-albuteroL magnesium sulfate OR magnesium sulfate potassium chloride OR potassium chloride potassium chloride in water OR potassium chloride in water sodium phosphate IV OR sodium phosphate IV - central line OR sod phos di, mono-K phos mono [COMPLETED] Consult PICC nurse - PICC AND sodium chloride AND sodium chloride AND sodium chloride sodium chloride 0.9 % Assessment MDRO Staphylococcus Hominis Sepsis, likely dual-chamber pacemaker placement source BCx 10/17 showing Staphylococcus hominis with multiple resistance genes collected on 02/04 Repeat BCx x2 collected 02/05 NGTD x2 days Acute on chronic hypoxic hypercarbic respiratory failure s/p Intubation 02/04- 02/05, improving Baseline pCO2 approx 60-[address] chest w/ contrast (02/04) showed right greater than left b/l pleural effusions Paroxysmal atrial fibrillation/flutter with RVR s/p CTI RFA ablation 2021, AV node ablation and dual-chamber pacemaker placement 01/28/25 Oliveros interrogation of dual-chamber pacemaker resulted with no events in the past 24 hours - 02/05/25 EP consultation 02/04/25: discontinue flecanide, metoprolol, recommend anticoagulation with warfarin. COPD on 3L O2, on Azithromycin 3 times weekly Normocytic anemia Hypothyroidism WILIAN Plan Pending echocardiogram, and likely JUAN FRANCISCO soon after Continue nasal cannula when appropriate NIV overnight and during the day while asleep Continue Lasix home dose 20 mg oral Continue DuoNebs Continue prednisone 40 mg daily EOT 02/11/2025 Continue heparin infusion and warfarin to maintain INR of 2-3 Consider infectious disease consultation pending blood culture speciation Continue Vancomycin for now Remove indwelling catheters Continue monitoring and replete electrolytes per ICU protocol Continue home medications as appropriate (BuSpar 10 mg nightly, gabapentin 300 mg TID, trazodone 25mg nightly, Cymbalta 80 mg daily) Can be discharged from a pulmonary standpoint. Will need detention NIV nocturnally and while napping during the day. 9:47 AM 02/11/25 Cosigned by Alejo Villalobos MD at 02/14/2025 12:07 PM EDT Associated attestation - Alejo Villalobos MD - 02/14/2025 12:07 PM EDT I personally saw this patient on the day of the encounter, performed the gamez portion(s) of the service and participated in the management and confirm the resident/fellow???s documentation. Please note there may be additional personal documentation from de Alejo Villalobos MD Pulmonary and critical care [facility] * Hansa Galan MD - 02/09/2025 3:00 PM EDT Images from the original note were not included. [facility] PALLIATIVE CARE CONSULTATION Date of Service: 02/09/2025 Patient Name: Minnie Cortez : 1960 Reason for Consultation: Goals of care in a patient with end-stage emphysema CC: Presented with altered mental status requiring intubation Subjective SUBJECTIVE HPI: 64 y.o. female who has been on oxygen for at least 5 years, she has chronic hypoxic hypercapnic respiratory failure secondary to COPD. She also has obstructive sleep apnea and does not always use her mask. In addition she has paroxysmal atrial fib and has received ablation with dual-chamber pacemaker placement. Patient came to [facility] from an outside hospital and prior to that she was at a [facility] facility. She was recently admitted and had atrial fib with a rapid ventricular rate. That is when she received her ablation and pacemaker placement. Scans done at [facility] showed pleural effusion other than that it was normal. In addition patient does have an AICD and from what I can tell she has not had any recent episodes of defibrillation. Patient was extubated on the . She had a failed swallow study but it was a bedside swallow study. She has had 2 blood cultures that were positive for Staph coccus hominis and she is on vancomycin. When I saw the patient today she was sitting up in bed and she was alert and oriented, she says shedoes have chronic pain it is mainly in her hips and her low back. At home she takes a [place] as needed. It takes who from a pain of 7 down to 6/10. Patient has trouble sleeping in her own bed and finds that the recliner is better. In addition she is able to get up more easily in the recliner. She lives with her and her granddaughter. The granddaughter is 18. They have a dog that they rescued and a few cats. 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 We did have a palliative care discussion as below. Past Medical History: Diagnosis Date Acute respiratory failure ([facility]) 09/02/2022 ARF (acute respiratory failure) ([facility]) 09/02/2022 Chronic pain Emphysema ([facility]) Hypertension Sleep apnea Past Surgical History: Procedure Laterality Date CENTRAL LINE 01/25/2025 EP - Ablation. flutter carto N/A 06/19/2022 Performed by Ivonne Manzanares MD at [facility] (EP) EP Invasive Oliveros single-chamber pacemaker/AV node ablation N/A 01/28/2025 Performed by Ivonne Manzanares MD at [facility] (EP) Allergies: Lyrica [pregabalin], Zonisamide, and Nickel Family History Problem Relation Age of Onset Cancer Mother throat Cancer Father Parkinsonism Sister Alcohol abuse Brother Alcohol abuse Brother Social History Tobacco Use Smoking status: Former Smokeless tobacco: Never Vaping Use Vaping status: Never Used Substance Use Topics Alcohol use: Not Currently Drug use: Never Objective OBJECTIVE BP 133/74 Pulse 70 Temp 36.8 ??C (98.2 ??F) (Oral) Resp 16 Ht 157.5 cm (5' 2.01 ) Wt 55.5kg (122 lb 5.7 oz) SpO2 100% BMI 22.37 kg/m?? Intake/Output Summary (Last 24 hours) at 02/10/2025 0123 Last data filed at 02/09/2025 2333 Gross per 24 hour Intake 610 ml Output 1100 ml Net -490 ml EXAM: Patient is sitting up in bed, she is pale, she is wearing her oxygen. She does appear to havemild to moderate shortness of breath with conversation. Her mood is pleasant her affect appropriateand her judgment seems good. She is aware and understands her medical condition. PALLIATIVE CARE DISCUSSION Patient understands that she has advanced lung disease. I did tell her that she meets criteria for terminal illness due to her advanced lung disease. In fact I told her she met criteria for home hospice care. Her goal right now is to go to [facility] facility so she can gain some strength before she goes home. She will consider whether or not she wants hospice once she goes home. In addition we discussed advanced care planning, she and her both have advanced care planning paperworkcompleted. There is a copy of the healthcare [id number] in the chart. We did discuss code status and she said she would like to follow-up with her to discuss further. ASSESSMENT Advanced end-stage lung disease. Hypoxic and hypercapnic. Appears to be more consistent with emphysema. Status post intubation Prognosis-patient's prognosis is consistent with terminal illness. She meets Medicare hospice benefit criteria. Positive blood cultures from staff with coccus hominis, likely secondary to dual chamber pacemaker placement source Shock, likely septic shock with pneumonia and bacteremia. Resolved Obstructive sleep apnea-educated patient on importance of wearing mask. Advanced care planning-completed Next of kin- DPOA- , followed by [id number]-zd-fzc Code [id number]-wpzsq to talk with her about it Goals-to go to [facility] in get stronger and then go home Pain-low back and hips-not well controlled but in light of her respiratory status would continue [place] as is. Encounter for palliative care PLAN Continue full zwqt-hgolox-ou with patient in a couple days Would not escalate pain medicine, only give short-acting Plans to go to nursing facility to complete antibiotic treatment and gain strength to go home Patient understands that she is terminally ill and does meet criteria for home hospice which would be added support at home when she completes her skilled facility time if the goals aligned. Thank you for the opportunity to participate in the care of this patient. The palliative care team will continue to follow. Please contact us if we can be of additional assistance [phone]. In preparation for, or response to, today's visit I Reviewed today's CBC/BMP, Reviewed recent progress notes, Reviewed consult notes, and Reviewed digital advance directives Advance Care Planning A separately identifiable advance care planning discussion was performed on 02/09/2025. Discussion was held with Minnie. Consent to perform ACP services was obtained and patient/family engaged in conversation voluntarily. See Palliative Care Discussion above in regards to the content of discussion. I spent 20 minutes providing advance care planning services to the patient/family today, separate from today's symptom management visit. [phone] [id number] * Isiah Felix DO - 02/07/2025 9:13 AM EDTAssociated Order(s): IP CONSULT TO INFECTIOUS DISEASES Images from the original note were not included. Division of Infectious Diseases Initial Consult note Academic Team Our team prefers to use [employer] for communication during business hours (8 AM - 5 PM). We make every effort to keep the Treatment Team in [employer] updated. If I do not respond within 30 minutes, please call the answering service. From 5 PM - 8 AM, please call our answering service at [phone] to speak to the on-call physician.. Patient name: Minnie Cortez Patient Today's Date and Time: 02/07/2025, 9:13 AM Admission Date: 02/04/2025 Impression: Staph hominis bacteremia Acute encephalopathy-improving Acute on chronic hypoxic hypercarbic respiratory failure s/p intubation 02/04 Extubated 02/05, now on 4L NC Paroxysmal atrial fibrillation/flutter with RVR S/P dual-chamber pacemaker 01/28/2025 Hx of CTI RFA ablation 2021 COPD on 3L O2, On azithromycin 3 times weekly Some hematoma around pacer site though no erythema or signs of cellulitis. Minimal tenderness to palpation. No obvious pocket infection. Repeat blood cultures are negative, initial with Staph hominis 2/2 with same susceptibility pattern. Can stop pip-tazo, CT chest reviewed from 02/04 and 01/25 do not appear significantly different Recommendations: Would recommend at least TTE Will discuss need for JUAN FRANCISCO, though with rapid clearance may not be required Continue Vancomycin Ok to discontinue pip-tazo. Subjective Reason for consultation / Chief complaint: Staph hominis bacteremia Our consultation addresses :complex antimicrobial therapy counseling and treatment History of Present Illness Minnie Cortez is a 64 y.o.-year-old female who was initially admitted on 02/04/2025. Past medical history significant for chronic hypercarbic respiratory failure secondary to COPD on 3 L O2 at baseline, baseline CO2 around 60. WILIAN, paroxysmal AFib on warfarin status post prior cardioversion, CTI space RFA ablation with dual-chamber pacemaker placement approximately 1 week ago. Recently hospitalized on 01/2022 due to AFib with RVR in course was complicated by intubation sedation in the ICU due to altered mentation and removing BiPAP machine in the progressive unit. Patient was extubated after a couple of days and had AV node RFA with dual-chamber placement by electrophysiology recommended tocontinue flecainide and metoprolol if she went back into AFib with RVR. Patient was discharged on therapeutic Coumadin INR 2.8 and was transferred to a SNF near [place]. It appears patient has been transferred from [facility] to [facility] for concerns for nonsustained VT. There was concern for septic shock patient was intubated and sedated requiring pressors and started on vancomycin and piperacillin. Electrophysiology has been consulted device has been interrogated no sustained ventricular arrhythmias were noted. Blood cultures have grown methicillin-resistant Staph hominis Past Medical History: Past Medical History: Diagnosis Date Acute respiratory failure ([facility]) 09/02/2022 ARF (acute respiratory failure) ([facility]) 09/02/2022 Chronic pain Emphysema ([facility]) Hypertension Sleep apnea Past Surgical History: Past Surgical History: Procedure Laterality Date CENTRAL LINE 01/25/2025 EP - Ablation. flutter carto N/A 06/19/2022 Performed by Ivonne Manzanares MD at [facility] (EP) EP Invasive Oliveros single-chamber pacemaker/AV node ablation N/A 01/28/2025 Performed by Ivonne Manzanares MD at [facility] (EP) Medications: busPIRone, 10 mg, oral, Nightly ipratropium-albuteroL, 3 mL, nebulization, TID iron sucrose, 100 mg, intravenous, Once pantoprazole, 40 mg, intravenous, QAM AC [COMPLETED] piperacillin-tazobactam (ZOSYN) IV, 4.5 g, intravenous, Once FOLLOWED BY piperacillin-tazobactam (ZOSYN) IV, 3.375 g, intravenous, Q8H [START ON 02/08/2025] predniSONE, 40 mg, oral, Daily with breakfast sodium chloride, 30 mL, intravenous, Q8H AND sodium chloride, 30 mL, intravenous, PRN AND sodium chloride, 60 mL, intravenous, PRN traZODone, 25 mg, oral, Nightly vancomycin, 15 mg/kg, intravenous, Q24H warfarin, 4 mg, oral, Daily Social History: Social History Socioeconomic History Marital status: Tobacco Use Smoking status: Former Smokeless tobacco: Never Vaping Use Vaping status: Never Used Substance and Sexual Activity Alcohol use: Not Currently Drug use: Never Sexual activity: Defer Other Topics Concern Caffeine Use Yes Social Drivers of Health Financial Resource Strain: High Risk (06/25/2022) Overall Financial Resource Strain (CARDIA) Difficulty of Paying Living Expenses: Very hard Food Insecurity: No Food Insecurity (02/04/2025) Hunger Screening Food Insecurity - Worry: Never True Food Insecurity - Inability: Never True Transportation Needs: No Transportation Needs (02/04/2025) PRAPARE - Transportation Lack of Transportation (Medical): No Lack of Transportation (Non-Medical): No Physical Activity: Inactive (06/25/2022) Exercise Vital Sign Days of Exercise per Week: 0 days Minutes of Exercise per Session: 0 min Stress: Stress Concern Present (06/25/2022) [employer] - Occupational Stress Questionnaire Feeling of Stress : To some extent Social Connections: Moderately Isolated (06/25/2022) Social Connection and Isolation Panel [NHANES] Frequency of Communication with Friends and Family: Three times a week Frequency of Social Gatherings with Friends and Family: Never Attends [employer] Services: Never Active Member of Clubs or Organizations: No Attends Club or Organization Meetings: Never Marital Status: Interpersonal Safety: Patient Unable To Answer (02/04/2025) Humiliation, Afraid, Rape, and Kick questionnaire Fear of Current or Ex-Partner: Patient unable to answer Emotionally Abused: Patient unable to answer Physically Abused: Patient unable to answer Sexually Abused: Patient unable to answer Housing Instability: Low Risk (02/04/2025) Housing Instability Housing Instability: No Family History: Family History Problem Relation Age of Onset Cancer Mother throat Cancer Father Parkinsonism Sister Alcohol abuse Brother Alcohol abuse Brother Immunization History: Immunization History Administered Date(s) Administered COVID-19, mRNA, LNP-S, PF, 100mcg/0.5mL Dose 12/12/2020, 01/09/2021 Influenza, Injectable, Quadrivalent 06/16/2019 Influenza, Injectable, quadrivalent (PF) 07/23/2013, 10/06/2017, 06/10/2018 Allergies: Allergies Allergen Reactions Lyrica [Pregabalin] Zonisamide Swelling Trouble breathing, tongue swells Nickel Rash Review of Systems: Review of systems reviewed and otherwise negative unless listed in HPI or above ROS portion. Objective Physical Examination: BP 141/66 Pulse 70 Temp 36.7 ??C (98.1 ??F) (Oral) Resp 14 Ht 157.5 cm (5' 2.01 ) Wt 55 kg (121 lb 4.1 oz) SpO2 100% BMI 22.17 kg/m?? Temperature Range: Temp: 36.7 ??C (98.1 ??F) Temp Av.6 ??C (97.9 ??F) Min: 36.2 ??C (97.2 ??F)Max: 37.1 ??C (98.7 ??F) General Appearance: Awake, alert, and in no apparent distress appears anxious Head: Normocephalic, without obvious abnormality, atraumatic Eyes: Pupils equal, round, reactive, to light and accommodation; extraocular movements intact; sclera anicteric; conjunctivae pink ENT: Oropharynx clear, without erythema, exudate, or thrush. Neck: Supple, without lymphadenopathy. Pulmonary/Chest: Clear to auscultation, without wheezes, rales, or rhonchi Left chest, pacer site minimal tenderness to palpation, some ecchymoses no erythema or clinical signs of pocket infection. Cardiovascular: Tachycardic, irregular Abdomen: Soft, nontender, nondistended. Extremities: No cyanosis, clubbing, edema, or effusions. Neurologic: Bulk and tone are normal. No atrophy is noted. Skin: No rash or lesions. Labs: Results from last 7 days Lab Units 02/07/25 0217 02/06/25 0201 02/05/25 0252 WBC x10E9/L 4.0 4.1 11.3* HEMOGLOBIN g/dL 6.8* 7.8* 7.6* HEMATOCRIT % 21.4* 24.3* 24.0* MCV fL 92 91 91 PLATELETS X10E9/L 144* 161 251 NEUTROS ABS MAN 10*3/uL 3.3 3.8 10.6* Results from last 7 days Lab Units 02/07/25 0217 02/06/25 1115 02/06/25 0707 02/06/25 0201 02/05/25 0801 02/05/25 0252 SODIUM mmol/L 147* -- -- 148* -- 145 POTASSIUM mmol/L 3.6 4.0 3.6 3.4* < > 3.6 CHLORIDE mmol/L 99 -- -- 96* -- 94* CO2 mmol/L 41* -- -- 44* -- 43* BUN mg/dL 23 -- -- 21 -- 17 CREATININE mg/dL 0.39* -- -- 0.50 -- 0.55 GLUCOSE mg/dL 98 -- -- 152* -- 135* CALCIUM mg/dL 8.6 -- -- 8.5 -- 8.6 ALK PHOS U/L 46 -- -- 53 -- 55 ALT U/L 15 -- -- 19 -- 23 AST U/L 10 -- -- 12 -- 15 < > = values in this interval not displayed. Results from last 7 days Lab Units 02/04/25 1208 HEMOGLOBIN A1C % 4.8 Results from last 7 days Lab Units 02/04/25 1143 COLOR UA Yellow TURBIDITY Clear SPECIFIC GRAVITY, URINE 1.032 NITRITE UA Negative PH URINE 8.0 LEUKOCYTE ESTERASE Negative PROTEIN Negative KETONES (URINE) Negative UROBILINOGEN <1.1 eu/dL BLOOD Negative Imaging Studies: CT chest reviewed, she does have a right-sided small pleural effusion. No gross lobar consolidations. Does not have significant ground-glass opacities does have notable underlying severe emphysema. I have personally reviewed the relevant imaging studies. Cultures: Microbiology Results Procedure Component Value Units Date/Time Blood culture #1 [[id number]] Collected: 02/05/25 1231 Specimen: Blood, Venous Updated: 02/07/25 0201 CULTURE RESULTS NO GROWTH AT 36 HOURS Blood culture #2 [[id number]] Collected: 02/05/25 1231 Specimen: Blood, Venous Updated: 02/07/25 0201 CULTURE RESULTS NO GROWTH AT 36 HOURS Blood culture #1 [[id number]] (Abnormal) (Susceptibility) Collected: 02/04/25 1335 Specimen: Blood, Venous Updated: 02/07/25 0749 CULTURE RESULTS Staphylococcus hominis GRAM STAIN Gram positive cocci in clusters Narrative: Suboptimal volume of blood collected, Results may be affected. Susceptibility Staphylococcus hominis Not Specified Cefazolin Resistant (deduced) Clindamycin >=4.0 Resistant Doxycycline 4.0 Susceptible Oxacillin >=4.0 Resistant Trimethoprim + Sulfamethoxazole 4.0 Resistant Vancomycin 2.0 Susceptible Blood culture #2 [[id number]] (Abnormal) (Susceptibility) Collected: 02/04/25 1335 Specimen: Blood, Venous Updated: 02/07/25 0750 CULTURE RESULTS Staphylococcus hominis GRAM STAIN Gram positive cocci in clusters Narrative: Suboptimal volume of blood collected, Results may be affected. Susceptibility Staphylococcus hominis Not Specified Cefazolin Resistant (deduced) Clindamycin >=4.0 Resistant Doxycycline 4.0 Susceptible Oxacillin >=4.0 Resistant Trimethoprim + Sulfamethoxazole 4.0 Resistant Vancomycin 2.0 Susceptible BLOOD CULTURE IDENTIFICATION PANEL [[id number]] (Abnormal) Collected: 02/04/25 1335 Specimen: Blood, Venous Updated: 02/05/25 1049 Staphylococcus species PCR Detected Lower resp/sputum culture inc gram stain: Patient acquired [[id number]] (Abnormal) Collected: 02/04/25 1147 Specimen: Aspirate from Bronchus Updated: 02/06/25 1355 CULTURE RESULTS Few Mackenzie albicans Rare Non-lactose fermenting gram negative bacilli GRAM STAIN >25 White Blood Cells/LPF 1 to 9 Squamous Epithelial Cells/LPF 0 Ciliated Epithelial Cells/LPF Moderate Gram positive cocci in pairs, chains and clusters Few Gram negative bacilli Few Yeast Narrative: Along with Many Normal Respiratory Teresita. Mrsa Pcr nasal swab [[id number]] (Normal) Collected: 02/04/25 1147 Specimen: Swab from Nostril Updated: 02/04/25 1318 MRSA PCR NASAL Negative Resp Pathogens Panel/SARS CoV-2 [[id number]] (Normal) Collected: 02/04/25 1147 Specimen: Swab from Nasopharynx Updated: 02/04/25 1256 SARS COV 2 BY PCR Not Detected ADENOVIRUS Not Detected CORONAVIRUS 229E Not Detected CORONAVIRUS HKU1 Not Detected CORONAVIRUS NL63 Not Detected CORONAVIRUS OC43 Not Detected HUMAN METAPNEUVIRUS Not Detected RHINO/ENTEROVIRUS Not Detected INFLUENZA A Not Detected INFLUENZA B Not Detected PARAINFLUENZA 1 Not Detected PARAINFLUENZA 2 Not Detected PARAINFLUENZA 3 Not Detected PARAINFLUENZA 4 Not Detected RESP SYNCYTIAL VIRUS Not Detected BORD PARAPERTUSSIS Not Detected BORDETELLA PERTUSSIS Not Detected CHLAM.PNEUMONIAE Not Detected MYCOPLASMA PNEUMONIAE Not Detected Narrative: The [employer] Respiratory Panel 2.1 (RP2.1) is a multiplexed nucleic acid test intended for the simultaneous qualitative detection and differentiation of nucleic acid from multiple viral and bacterial respiratory organisms, including nucleic acid from Severe Acute Respiratory Syndrome Coronavirus 2 (SARS-CoV-2), in nasopharyngeal swabs obtained from individuals suspected of COVID-19 by their healthcare provider. Testing is limited to laboratories certified under the Clinical Laboratory Improvement Amendments of 1988 (CLIA), to perform high complexity or moderate complexity tests. SARS-CoV-2 RNA and nucleic acids from the other respiratory viral and bacterial organisms identified by this test are generally detectable in nasopharyngeal swabs during the acute phase of infection.The detection and identification of specific viral and bacterial nucleic acids from individuals exhibiting signs and/or symptoms of respiratory infection is indicative of the presence of the identified microorganism and aids in the diagnosis of respiratory infection if used in conjunction with other clinical and epidemiological information. Positive results are indicative of the presence of the identified organism, but do not rule out co-infection with other pathogens. The agent(s) detected by the [employer] RP2.1 may not be the definite cause of disease and clinical correlation with patient history and other diagnostic information is necessary to determine patient infection status. Negative results in the setting of a respiratory illness may be due to infection with pathogens notdetected by this test, or lower respiratory tract infection that may not be detected by a nasopharyngeal specimen. Negative results do not preclude SARS-CoV-2 infection and should not be used as the sole basis for patient management decisions. Negative RADHA-CoV-2 results must be combined with clinical observations, patient history and epidemiological information. Negative results for other organisms identified by the test may require additional laboratory testing when evaluating a patient with possible respiratory tract infection. Urine Culture Urine, Indwelling Catheter [[id number]] (Abnormal) Collected: 02/04/25 1143 Specimen: Urine, Indwelling Catheter Updated: 02/06/25 1152 CULTURE RESULTS 10,000-50,000 CFU/mL Mackenzie albicans Thank you for allowing us to participate in the care of this patient. Isiah Felix DO ID Infectious Diseases Pager: I prefer to be contacted via [employer] for non-urgent matters. After hours, please call [phone] to have the on-call physician contacted. * Felix Moe MD - 02/04/2025 7:36 PM EDTAssociated Order(s): IP CONSULT TO ELECTROPHYSIOLOGY Summary: Cardiac electrophysiology consultation note. Images from the original note were not included. [facility] - Electrophysiology [address] [place], [place] [id number] CONSULTATION PATIENT NAME: Mninie Cortez : 1960 AGE: 64 y.o. Date of Admission: 02/04/2025 Date of Consultation: 02/04/2025 SUBJECTIVE Reason for consultation: Nonsustained VT. History of Present Illness Minnie Cortez is a 64 y.o. female with a past medical history of - Persistent atrial flutter status post AV node ablation and dual-chamber pacemaker implant. - COPD. - Chronic hypercarbic respiratory failure. Patient recently underwent AV node ablation and dual-chamber pacemaker implant Patient was at [facility] facility. As per report, patient was found to be unresponsive. Patient was intubated. Transferred to [facility]. EP service was consulted for concerns of nonsustained VT. As mentioned earlier, currently the patient is intubated and sedated. Requiring pressors. Concern from septic shock. Patient is on broad-spectrum antibiotics. Telemetry showed atrial flutter with RV pacing. Device interrogated. Stable lead parameters. No sustained ventricular arrhythmias present. PAST MEDICAL HISTORY Past Medical History: Diagnosis Date Acute respiratory failure ([facility]) 09/02/2022 ARF (acute respiratory failure) ([facility]) 09/02/2022 Chronic pain Emphysema ([facility]) Hypertension Sleep apnea SURGICAL HISTORY has a past surgical history that includes Cardiac electrophysiology procedure (N/A, 06/19/2022); Central Line (01/25/2025); and Cardiac electrophysiology procedure (N/A, 01/28/2025). SOCIAL HISTORY Social History Socioeconomic History Marital status: Spouse name: Not on file Number of children: Not on file Years of education: Not on file Highest education level: Not on file Occupational History Not on file Tobacco Use Smoking status: Former Smokeless tobacco: Never Vaping Use Vaping status: Never Used Substance and Sexual Activity Alcohol use: Not Currently Drug use: Never Sexual activity: Defer Other Topics Concern Caffeine Use Yes Social History Narrative Not on file Social Drivers of Health Financial Resource Strain: High Risk (06/25/2022) Overall Financial Resource Strain (CARDIA) Difficulty of Paying Living Expenses: Very hard Food Insecurity: No Food Insecurity (02/04/2025) Hunger Screening Food Insecurity - Worry: Never True Food Insecurity - Inability: Never True Transportation Needs: No Transportation Needs (02/04/2025) PRAPARE - Transportation Lack of Transportation (Medical): No Lack of Transportation (Non-Medical): No Physical Activity: Inactive (06/25/2022) Exercise Vital Sign Days of Exercise per Week: 0 days Minutes of Exercise per Session: 0 min Stress: Stress Concern Present (06/25/2022) [employer] - Occupational Stress Questionnaire Feeling of Stress : To some extent Social Connections: Moderately Isolated (06/25/2022) Social Connection and Isolation Panel [NHANES] Frequency of Communication with Friends and Family: Three times a week Frequency of Social Gatherings with Friends and Family: Never Attends Pentec[employer] Services: Never Active Member of Clubs or Organizations: No Attends Club or Organization Meetings: Never Marital Status: Interpersonal Safety: Patient Unable To Answer (02/04/2025) Humiliation, Afraid, Rape, and Kick questionnaire Fear of Current or Ex-Partner: Patient unable to answer Emotionally Abused: Patient unable to answer Physically Abused: Patient unable to answer Sexually Abused: Patient unable to answer Housing Instability: Low Risk (02/04/2025) Housing Instability Housing Instability: No FAMILY HISTORY family history includes Alcohol abuse in her brother and brother; Cancer in her father and mother; Parkinsonism in her sister. MEDICATIONS Prior to Admission medications Medication Sig Start Date End Date Taking? Authorizing Provider acetaminophen (TYLENOL) 325 mg tablet Take 2 tablets (650 mg total) by mouth every 6 (six) hours asneeded for pain. 01/25/25 Yes Steve Manzanares MD albuterol (ACCUNEB) 0.63 mg/3 mL nebulizer solution Inhale 3 mL (0.63 mg total) by nebulization every 4 (four) hours as needed for wheezing or shortness of breath. Yes Not In System Ref Prov albuterol (PROVENTIL HFA;VENTOLIN HFA) 90 mcg/actuation inhaler Inhale 2 puffs every 6 (six) hours as needed for wheezing. Yes Not In System Ref Prov atorvastatin (LIPITOR) 10 mg tablet Take 1 tablet (10 mg total) by mouth in the morning. Yes Not InSystem Ref Prov busPIRone (BUSPAR) 5 mg tablet Take 2 tablets (10 mg total) by mouth nightly. Yes Not In System RefProv duloxetine HCl (DULOXETINE ORAL) Take 80 mg by mouth in the morning. Yes Not In System Ref Prov vqeiivwiktr-qlwtstmhv-encinwiu (TRELEGY ELLIPTA) 100-62.5-25 mcg blister with device Inhale 1 puff in the morning. Lot Number: [id number] Expiration Date: 01/2026 Lot Number: [id number] Expiration Date: 02/2026. 11/15/24 Yes Viki Gunter DO furosemide (LASIX) 20 mg tablet Take 1 tablet (20 mg total) by mouth daily. 01/30/25 Yes ANGELICA Jasso gabapentin (NEURONTIN) 300 mg capsule Take 1 capsule (300 mg total) by mouth 3 (three) times a day.01/30/25 Yes ANGELICA Jasso guaiFENesin (MUCINEX) 600 mg tablet extended release 12hr Take 1 tablet (600 mg total) by mouth every 12 (twelve) hours. Yes Not In System Ref Prov hydrOXYzine (ATARAX) 25 mg tablet Take 1 tablet (25 mg total) by mouth as needed in the morning and1 tablet (25 mg total) as needed at noon and 1 tablet (25 mg total) as needed in the evening and 1 tablet (25 mg total) as needed before bedtime. Yes Not In System Ref Prov ipratropium-albuteroL (DUONEB) 0.5 mg-3 mg(2.5 mg base)/3 mL nebulizer Inhale 3 mL by nebulization in the morning and 3 mL at noon and 3 mL in the evening. 01/30/25 Yes ANGELICA Jasso liothyronine (CYTOMEL) 25 MCG tablet Take 1 tablet (25 mcg total) by mouth in the morning. 01/30/25 Yes ANGELICA Jasso loratadine (CLARITIN) 10 mg tablet Take 1 tablet (10 mg total) by mouth in the morning. Yes Not In System Ref Prov metoprolol succinate XL (TOPROL XL) 50 mg 24 hr tablet Take 1 tablet (50 mg total) by mouth in the morning. 01/30/25 Yes ANGELICA Jasso oxygen Inhale continuously. Yes Not In System Ref Prov traZODone (DESYREL) 50 mg tablet Take 0.5 tablets (25 mg total) by mouth nightly. Yes Not In SystemRef Prov warfarin (COUMADIN) 1 mg tablet 1mg on 01/30 then 2.5mg qd starting 01/31/2025 Patient taking differently: Take 4 tablets (4 mg total) by mouth in the evening. 01/30/25 Yes ANGELICA Bowling azithromycin (ZITHROMAX) 250 mg tablet Take 1 tablet (250 mg total) by mouth 3 (three) times a week. Friday, , Friday02/02/25 02/02/26 Nohelia WinneconneANGELICA kennedy ALLERGIES Lyrica [pregabalin], Zonisamide, and Nickel REVIEW OF SYSTEMS Constitutional: No fevers or chills, no recent weight gain or weight loss or fatigue Eyes: No visual changes or diplopia ENT: No headaches, hearing loss or vertigo Cardiovascular: Per HPI Respiratory: No cough or wheezing, no sputum production, no hematemesis Gastrointestinal: No abdominal pain, no nausea, vomiting, constipation, diarrhea Genitourinary: No dysuria, or hematuria Musculoskeletal: No gait disturbance, weakness or joint complaints Integumentary: No rash or pruritis Neurological: No headache, no prior CVA/TIA Psychiatric: No anxiety, or depression Endocrine: No temperature intolerance Hematologic/Lymphatic: No abnormal bruising or bleeding OBJECTIVE VITAL SIGNS: BP 102/54 Pulse 93 Temp 36.7 ??C (98 ??F) (Oral) Resp 16 Ht 157.5 cm (5' 2 ) Wt 56.9 kg (125 lb 7.1 oz) SpO2 99% BMI 22.94 kg/m?? ADMIT WEIGHT: 57.2 kg (126 lb 1.7 oz) BMI: Body mass index is 22.94 kg/m??. Admission Weight: 57.2 kg (126 lb 1.7 oz) PHYSICAL EXAM General appearance: Intubated and sedated. Skin: Warm and dry to touch. Head: Normocephalic, without obvious abnormality, atraumatic. Ears, Nose, Mouth, Throat: Throat clear without erythema or exudate. Dentition intact. Eyes: Conjunctivae unremarkable, EOM intact. Neck: No JVD, No carotid bruit. Neck supple, trachea midline. Respiratory: Decreased breath sounds bilaterally Cardiovascular: RRR with normal S1 and S2 with no murmurs. Gastrointestinal: Soft, non-tender. Bowel sounds normal. Musculoskeletal: No peripheral edema. CBC: Results from last 7 days Lab Units 02/04/25 1208 01/30/25 0520 01/29/25 0627 WBC x10E9/L 11.9* 9.5 10.2 HEMOGLOBIN g/dL 7.9* 8.8* 9.1* HEMATOCRIT % 25.6* 28.0* 29.7* MCV fL 92 90 91 PLATELETS X10E9/L 236 233 253 BMP: Results from last 7 days Lab Units 02/04/25 1755 02/04/25 1208 01/30/25 0520 01/29/25 0627 SODIUM mmol/L -- 145 143 146 POTASSIUM mmol/L 4.2 3.7 4.6 4.5 CHLORIDE mmol/L -- 91* 92* 98 CO2 mmol/L -- >45* >45* 45* BUN mg/dL -- 12 15 19 CREATININE mg/dL -- 0.39* 0.31* 0.38* CALCIUM mg/dL -- 8.2* 8.6 8.6 PHOSPHORUS mg/dL -- 2.1* -- -- MAGNESIUM mg/dL -- 1.6* 1.9 2.0 PT/INR: Results from last 7 days Lab Units 02/04/25 1208 01/30/25 0520 01/29/25 0627 PROTIME sec 36.4* 31.8* 19.2* INR 3.2* 2.8* 1.7* APTT: MAG: Results from last 7 days Lab Units 02/04/25 1208 01/30/25 0520 01/29/25 0627 MAGNESIUM mg/dL 1.6* 1.9 2.0 D Dimer: Troponin I ProBNP Results from last 7 days Lab Units 02/04/25 1208 BNP pg/mL 302* Lipid Panel: No results found for: CHOL , TRIG , HDL , CHOLHDLR CURRENT MEDICATIONS: chlorhexidine, 15 mL, mouth/throat, BID hydrocortisone sodium succinate, 50 mg, intravenous, Q6H ipratropium-albuteroL, 3 mL, nebulization, Q6H metoprolol tartrate, 25 mg, per OG tube, BID pantoprazole, 40 mg, intravenous, QAM AC [COMPLETED] piperacillin-tazobactam (ZOSYN) IV, 4.5 g, intravenous, Once FOLLOWED BY piperacillin-tazobactam (ZOSYN) IV, 3.375 g, intravenous, Q8H [COMPLETED] vancomycin, 20 mg/kg, intravenous, Once FOLLOWED BY [START ON 02/05/2025] vancomycin, 15 mg/kg, intravenous, Q24H CONTINUOUS INFUSIONS: dextrose 5 % in water, 100 mL/hr phenylephrine, 0.5-2.5 mcg/kg/min, Last Rate: 0.25 mcg/kg/min (02/04/251633) propofoL, 5-50 mcg/kg/min, Last Rate: 35 mcg/kg/min (02/04/251633) sodium chloride 0.9 %, 10 mL/hr sodium chloride 0.9 %, 10 mL/hr, Last Rate: 10 mL/hr (02/04/251633) sodium chloride 0.9 %, 10 mL/hr, Last Rate: 10 mL/hr (02/04/251633) sodium chloride 0.9 %, 3 mL/hr, Last Rate: 3 mL/hr (02/04/251919) vasopressin (PITRESSIN) 40 Units in sodium chloride 0.9 % 40 mL (1 Units/mL) infusion, 0.04 Units/min Assessment: 1. Acute encephalopathy. 2. Acute on chronic hypoxic hypercarbic respiratory failure. 3. Hospital-acquired pneumonia. 4. Persistent atrial flutter status post AV node ablation and dual-chamber pacemaker implant. 5. COPD. Plan: - Device interrogated. - Stable lead parameters. - No significant or sustained ventricular arrhythmias noted. - Recommend to discontinue flecainide and metoprolol - patient is on Coumadin for thromboembolic prophylaxis. INR is therapeutic today. - once INR is subtherapeutic, might require heparin for thromboembolic prophylaxis until able to take Coumadin again. No other EP intervention required. EP service will sign off. Please call us with any questions. Felix Moe MD. Felix Moe MD Cardiac Electrophysiology [facility] This note was completed using a voice dub room engineer system. Every effort was made to ensure accuracy. However, inadvertent computerized dub room engineer errors may be present. documented in this encounter Nursing Notes * Michelle Oliver RN - 02/11/2025 10:28 AM EDT Patient arrived safely to [facility] and denies any needs at this time documented in this encounter Miscellaneous Notes * Discharge Planning Note - Jen Strong RN - 02/12/2025 11:42 AM EDT DISCHARGE PLANNING NOTE Case discussed in daily transition rounds and chart reviewed by CN. Barriers to discharge include no medical barriers at this time. Discharge Plan remains: CN notified that auth was received to [facility]. CN tasked transportation and confirmed with [facility] for 1200 today. CN notified patient, RN, MD and SNF. CN confirmed with SNF that [facility] is not needed, as patient is returning. Discharge packet complete, CRF sent to SNF. Transport cert faxed to [facility]. RN given number to call report. CN will continue to follow and is available should any further needs arise. - Jen Strong RN 02/12/25 11:42 AM CN notified by Vernell at [facility] that they are not able to find the patient's BiPAP at this time. She states that she has escalated situation to her supervisor [employer] and will call CN back when it is found. CN spoke with Tess at [facility] and moved transportation back to 1500 today. - Jen Strong RN 02/12/25 12:29 PM CN confirmed with Vernell at [facility] that they have the BiPAP that is capable of providing appropriate settings for patient currently at the SNF. RN notified. - Jen Strong RN 02/12/25 2:02 PM * Plan of Care - Dedra Jean RN - 02/12/2025 9:49 AM EDT Problem: Pain Goal: Patient goal is pain score less than 4, able to rest, and participant in treatment plan as appropriate Description: INTERVENTIONS: 1. Encourage patient or legal solar manufacturer's representative to report early pain and ask for pain medicine when needed 2. Assess pain using appropriate pain scale and include the scale used when documenting 3. Administer analgesics based on type and severity of pain and evaluate response within appropriate time frame 4. Implement non-pharmacological measures as appropriate and evaluate response 5. Consider cultural and social influences on pain and pain management 6. Notify LIP if interventions ineffective or patient reports new pain 7. Monitor vital signs including pulse ox, end-tidal CO2 based on pain intervention 8. Reassess pain per policy 9. Teach patient or legal solar manufacturer's representative interventions for comforting Outcome: Progressing Note: Evaluation of progress towards goal: Pt frequently assessed for pain. PRN medications administered as ordered when needed. Problem: Safety Goal: Patient will be injury free during hospitalization Description: INTERVENTIONS: 1. Assess patient's risk for falls and implement fall prevention plan of care per policy 2. Provide and maintain a safe environment 3. Proper use of double Identifiers 4. Medication administration using the 5 rights 5. Hand hygiene 6. Specimens are labeled at the bedside 7. Instruct patient/ patient solar manufacturer's representative about use of safety devices 8. Include patient/ patient solar manufacturer's representative in decisions related to safety Outcome: Progressing Note: Evaluation of progress towards goal: Hand hygiene performed. Double identifiers used. All medications checked in MAR. Problem: Infection Goal: Absence of infection during hospitalization Description: INTERVENTIONS 1. Assess and monitor for signs and symptoms of infection. 2. Monitor lab/diagnostic results. 3. Monitor all insertion sites i.e., indwelling lines, tubes and drains. 4. Monitor endotracheal (as able) and nasal secretions for changes in amount and color. 5. Administer medications as ordered. 6. Instruct and encourage patient and family to use good hand hygiene technique. 7. Identify and instruct patient/patient solar manufacturer's representative in use of appropriate isolation precautionsfor identified infection/symptoms. 8. Provide and discuss with patient/patient solar manufacturer's representative on educational MDRO sheet. 9. Encourage and monitor nutritional status daily and consult army ranger if indicated. 10. Implement neutropenic guidelines as needed. Outcome: Progressing Note: Evaluation of progress towards goal: Hand hygiene performed. Standard precautions used. Sterility maintained when appropriate. Problem: Knowledge Deficit Goal: Patient/patient solar manufacturer's representative demonstrates understanding of disease process, treatment plan,medications, and discharge instructions Description: INTERVENTIONS 1. Complete learning assessment and assess knowledge base 2. Provide teaching at level of understanding 3. Provide teaching via preferred learning method(s) Outcome: Progressing Note: Evaluation of progress towards goal: Daily plan of care reviewed with patient. Medications reviewed before administration. Pt understands at this time. Problem: Discharge Planning Goal: Discharge to post-acute care, other facility, or home with appropriate resources Description: Patient's goal is: INTERVENTIONS 1. Conduct assessment to determine patient/family and health care team treatment goals, and need for post-acute services based on payer coverage, community resources, and patient preferences, and barriers to discharge 2. Coordinate with Social work, Care Navigation, and Utilization Review to arrange appropriate level of services according to patient's needs based on patient preference and payer coverage in collaboration with the physician and health care team 3. Address psychosocial, clinical, and financial barriers to discharge as identified in assessment in conjunction with the patient/family and health care team 4. Consult appropriate ancillary services (i.e.. PT/OT/ST, etc) as needed 5. Communicate with and update the patient/family, physician, and health care team regarding progress on the discharge plan 6. Identify discharge learning needs (meds, wound care, etc). 7. Arrange for needed discharge transportation as appropriate Outcome: Progressing Note: Evaluation of progress towards goal: SNF today Problem: Moderate - High Risk Fall Score Description: Castillo Fall Score of =/> 25 or indicated by [facility] Assessment Goal: Patient should be free from fall Description: Interventions: 1. Lund to environment 2. Hourly rounds addressing the 4 P's (Pain, Positioning, Possessions, Potty) 3. Clear area of hazards (spills, clutter, electrical cords, unnecessary equipment) 4. Place equipment (bed & TV controls, call light, phone, urinal) within reach 5. Encourage patient to wear glasses and hearing aides as appropriate 6. Maintain bed in lowest position 7. Lock wheels on bed/wheelchair 8. Provide adequate lighting, including night light 9. Assess need for additional bedding, food/fluids, pain med's prior to sleep/routinely 10. Provide gripper slippers or personal non-skid footwear 11. Teach patient and patient solar manufacturer's representative to maintain environment for safety and engage in all aspects of fall prevention program 12. Remind patient to call for help before getting out of bed 13. Initiate bed/chair/exit alarms supportive devices as appropriate, (chair wedge, no-skid floor mat, raised edge mattress, hip protectors) 14. Locate patient bed assignment for optimal visualization 15. Evaluate and identify Safe Patient Handling Equipment needs 16. Provide supervision when out of bed or chair 17. Utilize gait belt as needed to assist with ambulation 18. Place adaptive equipment (cane, walker) within reach 19. Request patient solar manufacturer's representative bring adaptive equipment/mobility aids from home or obtain and provide as needed 20. Consult pharmacy regarding effects of med's affecting mobility, cognition, and alternatives 21. Obtain physician order for PT if risk factors associated with mobility are present 22. Obtain physician order for OT as appropriate 23. Utilize diversional activities 24. Educate patient and patient solar manufacturer's representative how to maintain a safe environment during visitationtimes (notify nurse prior to leaving bedside) 25. Consider appropriateness of medical or non-medical office asst 26. Set up voiding schedule as appropriate (every 2 hours) Outcome: Progressing Note: Evaluation of progress towards goal: Bed locked and in lowest position. Side rails up x2. Call light and personal items within reach. Pt educated on calling before getting out of bed. Assistivedevices within reach. Problem: Potential for Compromised Skin Integrity Goal: Skin integrity is maintained or improved Description: Patient's goal is: INTERVENTIONS 1. Perform initial skin assessment on admission and as needed 2. Turn patient every 2 hours and PRN 3. Relieve pressure to bony prominences 4. Avoid shearing 5. Keep skin clean and dry 6. Alternate a full bath with partial baths for elderly 7. Apply lotion/moisturizer on skin 8. Monitor patient's hygiene practices 9. Float heels 10. Collaborate with interdisciplinary team and initiate plans and interventions as needed Outcome: Progressing Note: Evaluation of progress towards goal: Skin kept clean and dry - skin integrity maintained Goal: Patient's nutritional intake is adequate Description: Patient's goal is: INTERVENTIONS 1. Assess and monitor food intake and supplements, patient food preferences, nausea, vomiting, labs, oral cavity (gums, teeth, tongue, mucosa), proper denture fit, and cultural beliefs 2. Monitor for signs of hypoglycemia and hyperglycemia 3. Collaborate with interdisciplinary team and initiate plan and interventions as ordered 4. Monitor patient's weight 5. Assist patient with meals/food selection 6. Assist patient with eating 7. Allow adequate time for meals 8. Provide pleasant environment during mealtime 9. Increase social contact during mealtimes 10. Plan activities to conserve energy 11. Encourage/perform oral hygiene as appropriate 12. Encourage patient to take dietary supplement as ordered 13. Collaborate with clinical army ranger 14. Include patient/ patient's solar manufacturer's representative in decisions related to nutrition Outcome: Progressing Note: Evaluation of progress towards goal: Regular diet Problem: Urinary Incontinence Goal: Perineal skin integrity is maintained or improved Description: INTERVENTIONS 1. Assess genitourinary system, perineal skin, labs (urinalysis), and history of incontinence to include past management, aggravating, and alleviating factors 2. Keep skin clean and dry 3. Apply skin protectant 4. Develop skin care regimen 5. Provide privacy when changing patients incontinence device to maintain their dignity 6. Consider placing an indwelling catheter 7. Collaborate with interdisciplinary team and initiate plans and interventions as needed Outcome: Progressing Note: Evaluation of progress towards goal: Delfina care performed - skin clean and intact Problem: Inadequate Breathing Pattern Goal: Patient will maintain effective ventilation Description: Patient's goal is: INTERVENTIONS 1. Assess and monitor vital signs, respiratory status (to include respiratory rate, depth, effort, and breath sounds), oxygen saturation, oral mucosa, tongue, pain, and labs (ABGs). 2. Collaborate with interdisciplinary team and initiate plans and interventions as needed 3. Oxygen therapy as indicated 4. Position patient for maximum ventilatory efficiency 5. Instruct patient to turn, cough, and deep breathe; encourage incentive spirometer if indicated 6. Plan activities to conserve energy 7. Encourage ambulation/activity per patient's tolerance 8. Collaborate with patient/RT to administer medications/treatments 9. Monitor lab/diagnostic results Outcome: Progressing Note: Evaluation of progress towards goal: Patient oxygen saturation above 92 Problem: Respiratory - Adult Goal: Achieves optimal ventilation and oxygenation Description: Patient's goal is: INTERVENTIONS: 1. Assess for changes in respiratory status 2. Assess for changes in mentation and behavior 3. Position to facilitate oxygenation and minimize respiratory effort 4. Oxygen supplementation based on oxygen saturation or ABGs as ordered 5. Consult smoking cessation as indicated 6. Encourage broncho-pulmonary hygiene including cough, deep breathe, Incentive Spirometry, keep HOB elevated as tolerated, and encourage ambulation, as ordered 7. Assess the need for suctioning and obtain order to maintain clear airway 8. Assess and instruct patient to report SOB or any respiratory difficulty 9. Assess the need for Respiratory Therapy support if not already ordered 10. Initiate emergency measures for respiratory failure Outcome: Progressing Note: Evaluation of progress towards goal: Patient oxygen sats above 92 * Discharge Planning Note - Sia Gonsalez - 02/12/2025 9:28 AM EDT DISCHARGE PLANNING NOTE BLS to [facility] [place] via PTN at 12 PM. Confirmed in [facility]. * Discharge Planning Note - Vandana Castro - 02/12/2025 9:06 AM EDT DISCHARGE PLANNING NOTE Prior Auth approved for admission to : [facility] (P# [phone] ; F# ) Approval # [id number] Valid for Dates: 02/11/2025-02/17/2025 * PT/OT/TRAINING DESIGNER - INGA Shine - 02/12/2025 8:56 AM EDT Occupational Therapy Treatment Discharge Recommendations for Safe Patient Transition Discharge Recommendations: Post acute - moderate Post Acute Moderate Rehab Needs: Recommend moderate intensity rehab, Tolerate 1- 2 hrs of therapy 3-5 days/wk, Subacute or chronic functional impairment Bench Assembly Inspector Support for-: Mobility Deficits, ADL Deficits 6 Clicks: Daily Activity Putting on and taking off regular lower body clothing?: A lot Bathing (including washing, rinsing, drying)?: A lot Toileting, which includes using toilet, bedpan or urinal?: Total Putting on and taking off regular upper body clothing?: A lot Taking care of personal grooming such as brushing teeth?: A little Eating meals?: None Scoring Daily Activity Raw Score: 14 CMS G Code Modifier: CK OT Treatment/Interventions: ADL retraining, Functional transfer training, UE strengthening/ROM, Endurance training, Patient/family training, Cognitive reorientation, Equipment eval/education, Balance, Bed mobility, Compensatory technique education, Functional activities OT Frequency: 5-6days/week OT Duration: LOS Assessment Patient Assessment Therapy Problem List: Decreased ADL status, Decreased balance, Decreased endurance, Decreased mobility, Decreased UE strength, Decreased LE strength, Decreased high-level ADLs, Decreased safe judgement during ADL, Decreased self- care trans, Decreased sensation, Decreased UE ROM Patient Response to Treatment: Slow progress, decreased activity tolerance Mood/Affect: Appropriate for circumstances Rehab Prognosis: Good, With continued OT status post acute discharge Visit RN Communication: Yes Medical Record Reviewed: Yes OT Type of Visit: Treatment Precautions Activity: Early mobility pass, ok per RN Equipment: IV pole, gait belt, RW, repositioning sling, external cath, O2 Telemetry/Supervisor Multifocal Lens: Yes Oxygen Used: 3L O2 Other: Fall risk, high anxiety (medicate prior to therapy session), UE tremors, LUE edema Pain Assessment Pain Assessment: 0-10 Pain Score: 6 Pain Location: Back, Leg, Foot Pain Orientation: Lower, Right, Left Pain Descriptors: Aching Pain Intervention(s): Rest Response to Interventions: Quiet, No grimacing ADL / IADL Hand Dominance: Right Where Assessed: Supine, bed, Chair Grooming Assistance: Min assist Grooming Deficit: Wash/dry hands, Wash/dry face, Oral hygiene, Brushing hair Bathing/Showering Assistance: Mod assist, Verbal cues Bathing/Showering Deficit: Right arm, Left arm Toilet/Commode Assistance: Total assist Toilet/Commode Deficit: Increased time to complete, Verbal cueing, Perineal hygiene (incontinent with urine) UE Dressing Assistance: Mod assist, Verbal cues UE Dressing Deficit: Thread RUE, Thread LUE, Pull around back Other: Pt incontinent with urine required brief change in supine position with total assist, pt completed ADLS sitting on the recliner chair with SBA for safety with increased time and effort to complete d/t fatigue, weakness and SOB. Home Management - IADL Other: Pt incontinent with urine required brief change in supine position with total assist, pt completed ADLS sitting on the recliner chair with SBA for safety with increased time and effort to complete d/t fatigue, weakness and SOB. Hearing / Speech / Vision Hearing: Within Functional Limits Speech: Within Functional Limits Current Vision: Wears glasses all the time Cognition Arousal/Alertness: Appropriate responses to stimuli Attention Span: Attends with cues to redirect Memory: Appears intact Orientation Level: Oriented X4 Following Commands: Follows one step commands with increased time, Follows one step commands with repetition Safety Judgment: Decreased awareness of need for safety Awareness of Errors: Decreased awareness of errors, Assistance required to identify errors made, Assistance required to correct errors made Insight of Deficits: Decreased awareness of deficits Other: Pt pleasant and cooperative agreed to OOB up in chair this date, required cues to sequence task throughout ADLS to self initiate with fair carryover, pt limited by fatigue, weakness and SOB. Bed Mobility Rolling: Right, Left, Stand by assist, Verbal cues Supine to Sit: Stand by assist, Verbal cues Sit to Supine: Stand by assist, Verbal cues Other: Pt in supine position upon arrival to room with HOB elevated, upon sitting to the EOB discovered patient incontinent with urine and required to return to supine position for clean up with SBA for safety. Pt SBA for bed rolling to the R<->L bed rail during brief change, delfina care and bottom, pt required cues for hand placement to the L bed rail with SBA during supine to sit at the EOB, pt left in recliner chair at end of session, call light in reach and RN aware. Transfers Sit to Stand: Contact guard assist, Verbal cues Stand to Sit: Contact guard assist, Verbal cues Other: Pt required cues for hand placement with CGA for safety during sit <- >stand tranfers, pt denied any dizziness upon positional change. Gait Gait Assistance: Contact guard assist, Verbal cues Assistive Device: Rolling walker Gait Distance: 5ft Limiting Factors to Gait: Fatigue, Weakness, Decreased safety, Pain (SOB) Other: B UE support on RW with CGA for safety during functional mobility for short distance from b/s to recliner chair, cues for RW proximity for safety awareness, no LOB noted. Balance Sitting Balance: Static: Good Sitting Balance: Dynamic: Fair (+) Standing Balance: Static: Fair Standing Balance: Dynamic: Fair (-) Other: Pt sat unsupported on EOB and recliner chair approx 15 min total with intermittent rest breaks with SBA for safety. B UE support with CGA for safety during functional mobility for short distance in room, no LOB noted. Activity Tolerance Endurance: Tolerates >30 minutes activity with rest breaks Pre-Activity SpO2: 94 % Post-Activity SpO2: 93 % Other: Pt required increased time and effort with exceeded rest breaks d/t fatigue, weakness and SOB SPO2 between 93-94%. 02/12/25 0856 UE ROM UE ROM exercises performed? No (NT patient addressed ADLS and balance this date.) Plan Occupational Therapy Care Plan Occupational Therapy Care Plan (Active) Template: OT - Occupational Therapy Problem: Activity Tolerance Dates: Start: 02/08/25 Disciplines: OT Goal: Tolerate > 30 minutes of activity WITH rest breaks Dates: Start: 02/08/25 Expected End: 03/01/25 Description: Goal Description: Disciplines: OT Outcomes Date/Time User Outcome 02/12/25 1212 Ness Rojas, ALONZO/L Progressing 02/10/25 1713 Randee Bowie ALONZO/L Progressing 02/09/25 1552 Aye Rodriguez ALONZO/L Not Progressing Goal Note filed on 02/12/25 1212 by Ness Rojas ALONZO/Jean Claude Evaluation of progress towards goal: Problem: Bed Mobility Dates: Start: 02/08/25 Disciplines: OT Goal: Patient will perform bed mobility with Stand By Assist Dates: Start: 02/08/25 Expected End: 03/01/25 Description: Goal Description: Disciplines: OT Outcomes Date/Time User Outcome 02/12/25 1212 Ness Rojas ALONZO/L Progressing 02/10/25 1713 Randee Bowie ALONZO/L Progressing 02/09/25 1552 Aye Rodriguez ALONZO/L Progressing Goal Note filed on 02/12/25 1212 by NATALIE ShineA/Jean Claude Evaluation of progress towards goal: Problem: Functional Mobility Dates: Start: 02/08/25 Disciplines: OT Goal: Patient will perform functional mobility with Contact Guard Dates: Start: 02/08/25 Expected End: 03/01/25 Description: Goal Description: Disciplines: OT Outcomes Date/Time User Outcome 02/12/25 1212 Ness Rojas ALONZO/L Progressing 02/10/25 1713 Randee Bowie ALONZO/L Progressing Goal Note filed on 02/12/25 1212 by NATALIE ShineA/Jean Claude Evaluation of progress towards goal: Problem: Other (Customize) Dates: Start: 02/08/25 Disciplines: OT Goal: Improve Dates: Start: 02/08/25 Expected End: 03/01/25 Description: Pt will participate in BADL routine at SBA level, using AD, AE and/or compensatory strategies as needed. Disciplines: OT Problem: Sitting Balance Dates: Start: 02/08/25 Disciplines: OT Goal: Improve balance to good Dates: Start: 02/08/25 Expected End: 03/01/25 Description: Static Dynamic Disciplines: OT Outcomes Date/Time User Outcome 02/12/25 1212 Ness Rojas ALONZO/L Progressing 02/10/25 1713 NATALIE MoralesA/L Progressing 02/09/25 1552 Aye Rodriguez ALONZO/L Progressing Goal Note filed on 02/12/25 1212 by NATALIE ShineA/Jean Claude Evaluation of progress towards goal: Problem: Standing Balance Dates: Start: 02/08/25 Disciplines: OT Goal: Improve balance to good Dates: Start: 02/08/25 Expected End: 03/01/25 Description: Static Dynamic Disciplines: OT Outcomes Date/Time User Outcome 02/12/25 1212 Ness Rojas ALONZO/L Progressing 02/10/25 1713 Randee Bowie ALONZO/L Progressing Goal Note filed on 02/12/25 1212 by NATALIE ShineA/Jean Claude Evaluation of progress towards goal: Problem: Strength Dates: Start: 02/08/25 Disciplines: OT Goal: Improve strength Dates: Start: 02/08/25 Expected End: 03/01/25 Description: Of extremity/ location: BUE AROM/strengthening in all available planes x 15 reps To facilitate: increased overall strength and activity tolerance for ADL/mobility Disciplines: OT Outcomes Date/Time User Outcome 02/10/25 1713 CLINTON Morales/Jean Claude Progressing Problem: Toilet Transfers Dates: Start: 02/08/25 Disciplines: OT Goal: Patient will perform toilet transfers with Stand By Assist Dates: Start: 02/08/25 Expected End: 03/01/25 Description: Goal Description: Disciplines: OT Problem: Transfers Dates: Start: 02/08/25 Disciplines: OT Goal: Patient will perform transfers with Stand By Assist Dates: Start: 02/08/25 Expected End: 03/01/25 Description: Goal Description: Disciplines: OT Outcomes Date/Time User Outcome 02/12/25 1212 Ness Rojas ALONZO/Jean Claude Progressing 02/10/25 1713 NATALIE MoralesA/Jean Claude Progressing Goal Note filed on 02/12/25 1212 by INGA Shine Evaluation of progress towards goal: Occupational Therapy Care Plan (Resolved) There are no resolved problems. Principal Problem: Acute on chronic respiratory failure ([facility]) Cosigned by MARCOS Williamson at 02/12/2025 2:25 PM EDT Associated attestation - Lianne Castillo OTR/L - 02/12/2025 2:25 PM EDT I have reviewed and agree with this note and education documentation for this visit. * PT/OT/TRAINING DESIGNER - Ethan Servin PTA - 02/12/2025 8:55 AM EDT Physical Therapy Treatment Discharge Recommendations for Safe Patient Transition Discharge Recommendations: Post acute - moderate Post Acute Moderate Rehab Needs: Recommend moderate intensity rehab, Tolerate 1- 2 hrs of therapy 3-5 days/wk, Subacute or chronic functional impairment 6 Clicks: Basic Mobility Turning from your back to your side while in a flat bed without using bed rails?: A little Moving from lying on your back to sitting on side of flat bed without using bed rails?: A little Moving to and from bed to a chair (including w/c)?: A little Standing up from a chair using your arms (e.g. w/c or bedside chair)?: A little To walk in hospital room?: A lot Climbing 3-5 steps with a railing?: Total Scoring 6 Clicks: Basic Mobility Raw Score: 15 [facility] G Code Modifier: CK PT Treatment/Interventions: Functional transfer training, UE strengthening/ROM, LE strengthening/ROM, Endurance training, Equipment eval/education, Balance, Bed mobility, Gait training, Functional activities PT Frequency: 5-6days/week PT Duration: LOS Assessment Patient Assessment Therapy Problem List: Decreased ADL status, Decreased balance, Decreased endurance, Decreased mobility, Decreased UE strength, Decreased LE strength, Decreased high-level ADLs, Decreased safe judgement during ADL, Decreased self- care trans, Decreased sensation, Decreased UE ROM Patient Response to Treatment: Slow progress, decreased activity tolerance Mood/Affect: Appropriate for circumstances Rehab Prognosis: Good, With continued PT status post acute discharge Visit RN Communication: Yes Medical Record Reviewed: Yes PT Type of Visit: Treatment Precautions Activity: early mobility pass, okay per RN Equipment: IV pole, gait belt, RW, external catheter, O2 Telemetry/Supervisor Multifocal Lens: Yes Oxygen Used: 3L O2 via NC Other: Fall risk, high anxiety (medicate prior to therapy session), UE tremors, LUE edema Pain Assessment Pain Assessment: 0-10 Pain Score: 6 Observed Behavior: Calm Pain Location: Back, Leg, Foot Pain Orientation: Lower, Right, Left Pain Intervention(s): Repositioned, Ambulation/increased activity Response to Interventions: Pain improved, Quiet Pain 2 Observed Behavior: Calm Cognition Overall Cognitive Status: Exceptions to Within Functional Limits Arousal/Alertness: Appropriate responses to stimuli Attention Span: Attends with cues to redirect Memory: Appears intact Following Commands: Follows one step commands with increased time, Follows one step commands with repetition Safety Judgment: Decreased awareness of need for safety Awareness of Errors: Decreased awareness of errors, Assistance required to identify errors made, Assistance required to correct errors made Insight of Deficits: Decreased awareness of deficits Problem Solving: Reduced Interfering Components: Attention - sustained, Attention to detail, Processing speed Other: Willing to participate after encourgament. Anxious at times. Bed Mobility Rolling: Stand by assist, Verbal cues, Left, Right Supine to Sit: Stand by assist, Verbal cues, Left Sit to Supine: Stand by assist, Verbal cues, Right Other: Completed supine<->sit and rolling with SBA. HOB minimally raised and pt used bed railfor assist Cues needed for technique with fair to good understanding. Transfers Sit to Stand: Contact guard assist, Verbal cues Stand to Sit: Contact guard assist, Verbal cues Other: Completed sit/stand from EOB with CGA. Cues for hand placement with fair to good understanding. Gait Base of Support: Narrow Pattern: Decreased elizabeth, R Decreased foot clearance, L Decreased foot clearance, Forward trunk Gait Assistance: Contact guard assist, Verbal cues Assistive Device: Rolling walker Gait Distance: 5 feet x 1 Limiting Factors to Gait: Fatigue, Weakness, Other (comment) (DILLON) 2 Turns: (1 turn) Other: Completed amb with RW for BUE support and CGA. Limited with distance d/t weakness, fatigue, and SOB. Cues needed for posture, safety wih AD, and correct step length. Fair understanding of cues. Balance Balance Evaluation: Exceptions to Functional Limits Sitting Balance: Static: Good Sitting Balance: Dynamic: Fair (+) Standing Balance: Static: Fair Standing Balance: Dynamic: Fair (-) Other: Amb with RW for BUE support and CGA for safety. Intermittant unsupported sitting throughout treament for ~15 min and CGA/SBA for safety. 02/12/25 0855 LE Seated LE seated exercises performed? Yes Ankle pumps 15 Long arc quads 15 Seated marching 15 Other Exercises completed AROM with cues for technique. Activity Tolerance Endurance: Tolerates >30 minutes activity with rest breaks Other: Rest breaks as needed during treatment d/t fatigue, pain, and SOB. SPO2 93-94% wiht pt on 3LO2. Plan Physical Therapy Care Plan Physical Therapy Care Plan (Active) Template: PT - Physical Therapy Problem: Activity Tolerance Dates: Start: 02/08/25 Disciplines: PT Goal: Tolerate > 30 minutes of activity WITH rest breaks Dates: Start: 02/08/25 Expected End: 03/01/25 Description: Patient to perform functional range/strengthening exercises to improve functional strength and endurance for improved independence and safe mobility. Disciplines: PT Outcomes Date/Time User Outcome 02/12/25 1352 Etahn Servin, OFFICE SPEC Progressing 02/10/25 1601 Trell Montoya PTA Progressing 02/09/25 1617 Brittney Reeder PTA Progressing Goal Note filed on 02/10/25 1601 by Trell Montoya PTA Evaluation of progress towards goal: Problem: Bed Mobility Dates: Start: 02/08/25 Disciplines: PT Goal: Patient will perform bed mobility with Stand By Assist Dates: Start: 02/08/25 Expected End: 03/01/25 Description: Pt will perform supine<>sit demonstrating safe technique. Disciplines: PT Outcomes Date/Time User Outcome 02/12/25 1352 Ethan Servin, OFFICE SPEC Progressing 02/10/25 1601 Trell Montoya PTA Progressing 02/09/25 1617 Brittney Reeder PTA Progressing Goal Note filed on 02/10/25 1601 by Trell Montoya PTA Evaluation of progress towards goal: Problem: Gait Dates: Start: 02/08/25 Disciplines: PT Goal: Patient will perform gait with Minimum Assist Dates: Start: 02/08/25 Expected End: 03/01/25 Description: Patient will ambulate 30 ft with RW demonstrating safe gait pattern. Disciplines: PT Outcomes Date/Time User Outcome 02/12/25 1352 Ethan Servin, OFFICE SPEC Progressing 02/10/25 1601 Trell Montoya PTA Progressing Goal Note filed on 02/10/25 1601 by Trell Montoya PTA Evaluation of progress towards goal: Problem: Standing Balance Dates: Start: 02/08/25 Disciplines: PT Goal: Improve balance to fair Dates: Start: 02/08/25 Expected End: 03/01/25 Description: Pt will demonstrate Fair+ balance with RW during transfers and ambulation to decrease fall risk. Disciplines: PT Outcomes Date/Time User Outcome 02/12/25 1352 Ethan Servin, OFFICE SPEC Progressing 02/10/25 1601 Trell Montoya PTA Progressing Goal Note filed on 02/10/25 1601 by Trell Montoya PTA Evaluation of progress towards goal: Problem: Transfers Dates: Start: 02/08/25 Disciplines: PT Goal: Patient will perform transfers with Contact Guard Dates: Start: 02/08/25 Expected End: 03/01/25 Description: Pt will perform sit<>stand transfers with RW consistently demonstrating safe technique. Disciplines: PT Outcomes Date/Time User Outcome 02/12/25 1352 Ethan Servin PTA Progressing 02/10/25 1601 Trell Montoya PTA Progressing 02/09/25 1617 Brittney Reeder PTA Not Progressing Goal Note filed on 02/10/25 1601 by Trell Montoya PTA Evaluation of progress towards goal: Physical Therapy Care Plan (Resolved) There are no resolved problems. Principal Problem: Acute on chronic respiratory failure (CMS-HCC) Cosigned by Rosa Gold PT at 02/12/2025 2:43 PM EDT Associated attestation - Rosa Gold PT - 02/12/2025 2:43 PM EDT I have reviewed and agree with this note and education documentation for this visit. * Plan of Care - Samra Moss RN - 02/12/2025 2:59 AM EDT Problem: Pain Goal: Patient goal is pain score less than 4, able to rest, and participant in treatment plan as appropriate Description: INTERVENTIONS: 1. Encourage patient or legal solar manufacturer's representative to report early pain and ask for pain medicine when needed 2. Assess pain using appropriate pain scale and include the scale used when documenting 3. Administer analgesics based on type and severity of pain and evaluate response within appropriate time frame 4. Implement non-pharmacological measures as appropriate and evaluate response 5. Consider cultural and social influences on pain and pain management 6. Notify LIP if interventions ineffective or patient reports new pain 7. Monitor vital signs including pulse ox, end-tidal CO2 based on pain intervention 8. Reassess pain per policy 9. Teach patient or legal solar manufacturer's representative interventions for comforting Outcome: Progressing Note: Evaluation of progress towards goal: Pt pain is appropriately assessed and treated with medications and comfort measures. Pt reports 0/10 pain throughout shift and is able to rest. Problem: Safety Goal: Patient will be injury free during hospitalization Description: INTERVENTIONS: 1. Assess patient's risk for falls and implement fall prevention plan of care per policy 2. Provide and maintain a safe environment 3. Proper use of double Identifiers 4. Medication administration using the 5 rights 5. Hand hygiene 6. Specimens are labeled at the bedside 7. Instruct patient/ patient solar manufacturer's representative about use of safety devices 8. Include patient/ patient solar manufacturer's representative in decisions related to safety Outcome: Progressing Note: Evaluation of progress towards goal: Pt remains injury free during hospital stay. Will continue to assess throughout shift. Problem: Infection Goal: Absence of infection during hospitalization Description: INTERVENTIONS 1. Assess and monitor for signs and symptoms of infection. 2. Monitor lab/diagnostic results. 3. Monitor all insertion sites i.e., indwelling lines, tubes and drains. 4. Monitor endotracheal (as able) and nasal secretions for changes in amount and color. 5. Administer medications as ordered. 6. Instruct and encourage patient and family to use good hand hygiene technique. 7. Identify and instruct patient/patient solar manufacturer's representative in use of appropriate isolation precautionsfor identified infection/symptoms. 8. Provide and discuss with patient/patient solar manufacturer's representative on educational MDRO sheet. 9. Encourage and monitor nutritional status daily and consult army ranger if indicated. 10. Implement neutropenic guidelines as needed. Outcome: Progressing Note: Evaluation of progress towards goal: Pt remains afebrile throughout shift. Will continue to monitor pt. Problem: Knowledge Deficit Goal: Patient/patient solar manufacturer's representative demonstrates understanding of disease process, treatment plan,medications, and discharge instructions Description: INTERVENTIONS 1. Complete learning assessment and assess knowledge base 2. Provide teaching at level of understanding 3. Provide teaching via preferred learning method(s) Outcome: Progressing Note: Evaluation of progress towards goal: POC discussed with pt. Pt has no further questions at this time. Problem: Moderate - High Risk Fall Score Description: Castillo Fall Score of =/> 25 or indicated by [facility] Assessment Goal: Patient should be free from fall Description: Interventions: 1. [place] to environment 2. Hourly rounds addressing the 4 P's (Pain, Positioning, Possessions, Potty) 3. Clear area of hazards (spills, clutter, electrical cords, unnecessary equipment) 4. Place equipment (bed & TV controls, call light, phone, urinal) within reach 5. Encourage patient to wear glasses and hearing aides as appropriate 6. Maintain bed in lowest position 7. Lock wheels on bed/wheelchair 8. Provide adequate lighting, including night light 9. Assess need for additional bedding, food/fluids, pain med's prior to sleep/routinely 10. Provide gripper slippers or personal non-skid footwear 11. Teach patient and patient solar manufacturer's representative to maintain environment for safety and engage in all aspects of fall prevention program 12. Remind patient to call for help before getting out of bed 13. Initiate bed/chair/exit alarms supportive devices as appropriate, (chair wedge, no-skid floor mat, raised edge mattress, hip protectors) 14. Locate patient bed assignment for optimal visualization 15. Evaluate and identify Safe Patient Handling Equipment needs 16. Provide supervision when out of bed or chair 17. Utilize gait belt as needed to assist with ambulation 18. Place adaptive equipment (cane, walker) within reach 19. Request patient solar manufacturer's representative bring adaptive equipment/mobility aids from home or obtain and provide as needed 20. Consult pharmacy regarding effects of med's affecting mobility, cognition, and alternatives 21. Obtain physician order for PT if risk factors associated with mobility are present 22. Obtain physician order for OT as appropriate 23. Utilize diversional activities 24. Educate patient and patient solar manufacturer's representative how to maintain a safe environment during visitationtimes (notify nurse prior to leaving bedside) 25. Consider appropriateness of medical or non-medical office asst 26. Set up voiding schedule as appropriate (every 2 hours) Outcome: Progressing Note: Evaluation of progress towards goal: Pt remains free from fall during hospital stay. Appropriate precautions are assessed and implemented based on pt need and status. Pt calls out appropriately. Problem: Respiratory - Adult Goal: Achieves optimal ventilation and oxygenation Description: Patient's goal is: INTERVENTIONS: 1. Assess for changes in respiratory status 2. Assess for changes in mentation and behavior 3. Position to facilitate oxygenation and minimize respiratory effort 4. Oxygen supplementation based on oxygen saturation or ABGs as ordered 5. Consult smoking cessation as indicated 6. Encourage broncho-pulmonary hygiene including cough, deep breathe, Incentive Spirometry, keep HOB elevated as tolerated, and encourage ambulation, as ordered 7. Assess the need for suctioning and obtain order to maintain clear airway 8. Assess and instruct patient to report SOB or any respiratory difficulty 9. Assess the need for Respiratory Therapy support if not already ordered 10. Initiate emergency measures for respiratory failure Outcome: Progressing Note: Evaluation of progress towards goal: Pt remains adequately oxygenated on nasal canula and CPAP and tolerates activity well. Pt O2 stats remain above 90%. * Plan of Care - Jeanna Molina RCP - 02/11/2025 8:59 PM EDT Problem: Inadequate Breathing Pattern Goal: Patient will maintain effective ventilation Description: Patient's goal is: INTERVENTIONS 1. Assess and monitor vital signs, respiratory status (to include respiratory rate, depth, effort, and breath sounds), oxygen saturation, oral mucosa, tongue, pain, and labs (ABGs). 2. Collaborate with interdisciplinary team and initiate plans and interventions as needed 3. Oxygen therapy as indicated 4. Position patient for maximum ventilatory efficiency 5. Instruct patient to turn, cough, and deep breathe; encourage incentive spirometer if indicated 6. Plan activities to conserve energy 7. Encourage ambulation/activity per patient's tolerance 8. Collaborate with patient/RT to administer medications/treatments 9. Monitor lab/diagnostic results Outcome: Progressing Note: Evaluation of progress towards goal: pt remains on NC. NIV at bedside. Cont to wean as tolerated and monitor. * Plan of Care - Lisa Irving RN - 02/11/2025 7:22 PM EDT Problem: Pain Goal: Patient goal is pain score less than 4, able to rest, and participant in treatment plan as appropriate Description: INTERVENTIONS: 1. Encourage patient or legal solar manufacturer's representative to report early pain and ask for pain medicine when needed 2. Assess pain using appropriate pain scale and include the scale used when documenting 3. Administer analgesics based on type and severity of pain and evaluate response within appropriate time frame 4. Implement non-pharmacological measures as appropriate and evaluate response 5. Consider cultural and social influences on pain and pain management 6. Notify LIP if interventions ineffective or patient reports new pain 7. Monitor vital signs including pulse ox, end-tidal CO2 based on pain intervention 8. Reassess pain per policy 9. Teach patient or legal solar manufacturer's representative interventions for comforting Outcome: Progressing Note: Evaluation of progress towards goal: chronic pain continues, continue to medicate Problem: Safety Goal: Patient will be injury free during hospitalization Description: INTERVENTIONS: 1. Assess patient's risk for falls and implement fall prevention plan of care per policy 2. Provide and maintain a safe environment 3. Proper use of double Identifiers 4. Medication administration using the 5 rights 5. Hand hygiene 6. Specimens are labeled at the bedside 7. Instruct patient/ patient solar manufacturer's representative about use of safety devices 8. Include patient/ patient solar manufacturer's representative in decisions related to safety Outcome: Progressing Note: Evaluation of progress towards goal: remains free from injury Problem: Discharge Planning Goal: Discharge to post-acute care, other facility, or home with appropriate resources Description: Patient's goal is: INTERVENTIONS 1. Conduct assessment to determine patient/family and health care team treatment goals, and need for post-acute services based on payer coverage, community resources, and patient preferences, and barriers to discharge 2. Coordinate with Social work, Care Navigation, and Utilization Review to arrange appropriate level of services according to patient's needs based on patient preference and payer coverage in collaboration with the physician and health care team 3. Address psychosocial, clinical, and financial barriers to discharge as identified in assessment in conjunction with the patient/family and health care team 4. Consult appropriate ancillary services (i.e.. PT/OT/ST, etc) as needed 5. Communicate with and update the patient/family, physician, and health care team regarding progress on the discharge plan 6. Identify discharge learning needs (meds, wound care, etc). 7. Arrange for needed discharge transportation as appropriate Outcome: Progressing Note: Evaluation of progress towards goal: pending ins auth Problem: Inadequate Breathing Pattern Goal: Patient will maintain effective ventilation Description: Patient's goal is: INTERVENTIONS 1. Assess and monitor vital signs, respiratory status (to include respiratory rate, depth, effort, and breath sounds), oxygen saturation, oral mucosa, tongue, pain, and labs (ABGs). 2. Collaborate with interdisciplinary team and initiate plans and interventions as needed 3. Oxygen therapy as indicated 4. Position patient for maximum ventilatory efficiency 5. Instruct patient to turn, cough, and deep breathe; encourage incentive spirometer if indicated 6. Plan activities to conserve energy 7. Encourage ambulation/activity per patient's tolerance 8. Collaborate with patient/RT to administer medications/treatments 9. Monitor lab/diagnostic results Outcome: Progressing Note: Evaluation of progress towards goal: o2 aat, bipap when sleeping * Plan of Care - Lisa Irving RN - 02/11/2025 6:40 PM EDT Problem: Pain Goal: Patient goal is pain score less than 4, able to rest, and participant in treatment plan as appropriate Description: INTERVENTIONS: 1. Encourage patient or legal solar manufacturer's representative to report early pain and ask for pain medicine when needed 2. Assess pain using appropriate pain scale and include the scale used when documenting 3. Administer analgesics based on type and severity of pain and evaluate response within appropriate time frame 4. Implement non-pharmacological measures as appropriate and evaluate response 5. Consider cultural and social influences on pain and pain management 6. Notify LIP if interventions ineffective or patient reports new pain 7. Monitor vital signs including pulse ox, end-tidal CO2 based on pain intervention 8. Reassess pain per policy 9. Teach patient or legal solar manufacturer's representative interventions for comforting Outcome: Progressing Note: Evaluation of progress towards goal: chronic pain continues, continue to medicate Problem: Safety Goal: Patient will be injury free during hospitalization Description: INTERVENTIONS: 1. Assess patient's risk for falls and implement fall prevention plan of care per policy 2. Provide and maintain a safe environment 3. Proper use of double Identifiers 4. Medication administration using the 5 rights 5. Hand hygiene 6. Specimens are labeled at the bedside 7. Instruct patient/ patient solar manufacturer's representative about use of safety devices 8. Include patient/ patient solar manufacturer's representative in decisions related to safety Outcome: Progressing Note: Evaluation of progress towards goal: remains free from injury Problem: Infection Goal: Absence of infection during hospitalization Description: INTERVENTIONS 1. Assess and monitor for signs and symptoms of infection. 2. Monitor lab/diagnostic results. 3. Monitor all insertion sites i.e., indwelling lines, tubes and drains. 4. Monitor endotracheal (as able) and nasal secretions for changes in amount and color. 5. Administer medications as ordered. 6. Instruct and encourage patient and family to use good hand hygiene technique. 7. Identify and instruct patient/patient solar manufacturer's representative in use of appropriate isolation precautionsfor identified infection/symptoms. 8. Provide and discuss with patient/patient solar manufacturer's representative on educational MDRO sheet. 9. Encourage and monitor nutritional status daily and consult army ranger if indicated. 10. Implement neutropenic guidelines as needed. Outcome: Progressing Note: Evaluation of progress towards goal: continues on rosemary Problem: Discharge Planning Goal: Discharge to post-acute care, other facility, or home with appropriate resources Description: Patient's goal is: INTERVENTIONS 1. Conduct assessment to determine patient/family and health care team treatment goals, and need for post-acute services based on payer coverage, community resources, and patient preferences, and barriers to discharge 2. Coordinate with Social work, Care Navigation, and Utilization Review to arrange appropriate level of services according to patient's needs based on patient preference and payer coverage in collaboration with the physician and health care team 3. Address psychosocial, clinical, and financial barriers to discharge as identified in assessment in conjunction with the patient/family and health care team 4. Consult appropriate ancillary services (i.e.. PT/OT/ST, etc) as needed 5. Communicate with and update the patient/family, physician, and health care team regarding progress on the discharge plan 6. Identify discharge learning needs (meds, wound care, etc). 7. Arrange for needed discharge transportation as appropriate Outcome: Progressing Note: Evaluation of progress towards goal: pending ins auth Problem: Inadequate Breathing Pattern Goal: Patient will maintain effective ventilation Description: Patient's goal is: INTERVENTIONS 1. Assess and monitor vital signs, respiratory status (to include respiratory rate, depth, effort, and breath sounds), oxygen saturation, oral mucosa, tongue, pain, and labs (ABGs). 2. Collaborate with interdisciplinary team and initiate plans and interventions as needed 3. Oxygen therapy as indicated 4. Position patient for maximum ventilatory efficiency 5. Instruct patient to turn, cough, and deep breathe; encourage incentive spirometer if indicated 6. Plan activities to conserve energy 7. Encourage ambulation/activity per patient's tolerance 8. Collaborate with patient/RT to administer medications/treatments 9. Monitor lab/diagnostic results Outcome: Progressing Note: Evaluation of progress towards goal: o2 aat, bipap when sleeping * Discharge Planning Note - Vernell Koenig - 02/11/2025 12:42 PM EDT DISCHARGE PLANNING NOTE Clinical Updates sent to [facility] (P# ; F# ) * PT/OT/TRAINING DESIGNER - Amee Bazan [facility]-TRAINING DESIGNER - 02/11/2025 10:29 AM EDT Speech Therapy Videofluoroscopic Swallow Study Evaluation and Treatment Note Discharge Recommendations for Safe Patient Transition TRAINING DESIGNER Post Discharge Therapy Recommendations: Continue ST services Current Impairments Informing Therapy Recommendation: Swallowing Recommendations Diet Level: Regular Liquid Level: Level 0 Thin (NO STRAWS) Compensatory Strategies: Small sips/bites, One sip/bite at a time, Follow aspiration precautions, No straws Supervision/Positioning: Patient at 90 degress for all PO intake (including medication), Patient toremain upright 15 minutes after meals Medications: In applesauce/puree Referrals: Dysphagia therapy, Urology Physician Impressions Oral Phase: Mild Pharyngeal Phase: Mild Functional Oral Intake Scale: Total PO no special prep- must avoid specific items Plan Frequency: 2-3days/week Duration: until discharge Treatments/Modalities: Safety strategies, Oral motor treatment plan, Pharyngeal strengthening Need for skilled Speech Language Pathology Services to address deficits in feeding/swallowing due to a status decline resulting from acute on chronic respiratory failure. Pt educated on purpose of exam, contrast administration, and procedural techniques prior to initiation of exam. Pt educated on diet recommendations, plan of care, and encouraged to use safety strategies in order to maintain safe PO intake following exam. Okay for Regular diet with Thin liquids per cup- no straws! Small sips. Continue medications in puree. Prognosis Services: Skilled TRAINING DESIGNER services to address above deficits Prognosis/Potential: Good Considerations: Age, Cognition, Previous level of function, Severity of impairments Assessment Baseline Assessment Allergies Marked As Reviewed: Complete Consistencies Tested Views: Lateral position Level 0 Thin: Spoon, Straw, Cup Level 4 Pureed: Spoon Level 6 Soft & Bite-Sized: Spoon Regular Tested: Bite Modified Barium Swallow Impairment Profile (MBSImP) Oral Impairment: Yes Component 1: Lip Closure: no labial escape Component 2: Tongue Control During Bolus Hold: escape to lateral buccal cavity/floor of mouth Component 3: Bolus Preparation/Mastication: slow prolonged chewing/mashing with complete re-collection Component 4: Bolus Transport/Lingual Motion: slowed tongue motion Component 5: Oral Residue: residue collection on oral structures Component 6: Initiation of Pharyngeal Swallow: bolus head at posterior laryngeal surface of epiglottis Pharyngeal Impairment: Yes Component 7: Soft Palate Elevation: no bolus between soft palate/posterior pharyngeal wall Component 8: Laryngeal Elevation: partial superior movement of thyroid cartilage/partial approximation of arytenoids to epiglottic petiole Component 9: Anterior Hyoid Excursion: partial anterior movement Component 10: Epiglottic Movement: partial inversion Component 11: Laryngeal Vestibular Closure - Height of the Swallow: incomplete, narrow column of contrast/air in laryngeal vestibule Component 12: Pharyngeal Stripping Wave: present - diminished Component 13: Pharyngeal Contraction (A/P view only): could not be determined due to logistical reasons not related to physiologic impairment Component 14: Pharyngoesophageal Segment Opening: partial distension/partial duration, partial obstruction of flow Component 15: Tongue Base Retraction: trace column of contrast/air between tongue base and posterior pharyngeal wall Component 16: Pharyngeal Residue: collection of residue within or on pharyngeal structures MBSImP Overall Impression Scores Oral Impairment Total: 8 Pharyngeal Impairment Total: 9 Penetration/Aspiration Scale Penetration/Aspiration Scale Performed: Yes Level 0 Thin: Contrast did not enter the airway, Contrast entered the airway, remained above the vocal folds, and was ejected from the airway, Contrast entered the airway, remained above the vocal folds, and was not ejected from the airway (3 per straw; 1/2 per cup) Level 4 Pureed: Contrast did not enter the airway Level 6 Soft & Bite-Sized: Contrast did not enter the airway Regular: Contrast did not enter the airway Trialed Compensatory Strategies Strategies Utilized: Small sips/bites, Double swallow, Controlled bolus Effective: Yes Pain Assessment Pain Assessment: No/denies pain Plan Diagnosis Code Swallowing: R13.12 Dysphagia, oropharyngeal phase Speech Therapy Care Plan Speech Therapy Care Plan (Active) Template: - Dysphagia Problem: Swallowing Dates: Start: 02/06/25 Disciplines: TRAINING DESIGNER Goal: LTG: Patient will maintain adequate nutrition/ hydration with optimum safety and efficiency of swallowing function of oral intake without overt signs/symptoms of aspiration for the highest appropriate diet level Dates: Start: 02/06/25 Expected End: 03/13/25 Disciplines: TRAINING DESIGNER Outcomes Date/Time User Outcome 02/11/25 1042 PAVAN Landeros Progressing Goal: STG: Patient will tolerate therapeutic feeding trials of advanced textures with 90% accuracy with minimal cueing Dates: Start: 02/06/25 Expected End: 03/13/25 Disciplines: TRAINING DESIGNER Outcomes Date/Time User Outcome 02/11/25 1042 PAVAN Landeros Progressing Speech Therapy Care Plan (Resolved) There are no resolved problems. Principal Problem: Acute on chronic respiratory failure ([facility]) * Plan of Care - Katia Williamson RCP - 02/11/2025 9:24 AM EDT Problem: Inadequate Breathing Pattern Goal: Patient will maintain effective ventilation Description: Patient's goal is: INTERVENTIONS 1. Assess and monitor vital signs, respiratory status (to include respiratory rate, depth, effort, and breath sounds), oxygen saturation, oral mucosa, tongue, pain, and labs (ABGs). 2. Collaborate with interdisciplinary team and initiate plans and interventions as needed 3. Oxygen therapy as indicated 4. Position patient for maximum ventilatory efficiency 5. Instruct patient to turn, cough, and deep breathe; encourage incentive spirometer if indicated 6. Plan activities to conserve energy 7. Encourage ambulation/activity per patient's tolerance 8. Collaborate with patient/RT to administer medications/treatments 9. Monitor lab/diagnostic results Outcome: Progressing Note: Evaluation of progress towards goal: baseline * Plan of Care - Huey Meade RN - 02/11/2025 2:59 AM EDT Problem: Pain Goal: Patient goal is pain score less than 4, able to rest, and participant in treatment plan as appropriate Description: INTERVENTIONS: 1. Encourage patient or legal solar manufacturer's representative to report early pain and ask for pain medicine when needed 2. Assess pain using appropriate pain scale and include the scale used when documenting 3. Administer analgesics based on type and severity of pain and evaluate response within appropriate time frame 4. Implement non-pharmacological measures as appropriate and evaluate response 5. Consider cultural and social influences on pain and pain management 6. Notify LIP if interventions ineffective or patient reports new pain 7. Monitor vital signs including pulse ox, end-tidal CO2 based on pain intervention 8. Reassess pain per policy 9. Teach patient or legal solar manufacturer's representative interventions for comforting Outcome: Progressing Note: Evaluation of progress towards goal: Patient's occasional back pain is being managed using PRN pain meds. Problem: Safety Goal: Patient will be injury free during hospitalization Description: INTERVENTIONS: 1. Assess patient's risk for falls and implement fall prevention plan of care per policy 2. Provide and maintain a safe environment 3. Proper use of double Identifiers 4. Medication administration using the 5 rights 5. Hand hygiene 6. Specimens are labeled at the bedside 7. Instruct patient/ patient solar manufacturer's representative about use of safety devices 8. Include patient/ patient solar manufacturer's representative in decisions related to safety Outcome: Progressing Note: Evaluation of progress towards goal: Patient has not sustained additional injuries since being admitted. Problem: Infection Goal: Absence of infection during hospitalization Description: INTERVENTIONS 1. Assess and monitor for signs and symptoms of infection. 2. Monitor lab/diagnostic results. 3. Monitor all insertion sites i.e., indwelling lines, tubes and drains. 4. Monitor endotracheal (as able) and nasal secretions for changes in amount and color. 5. Administer medications as ordered. 6. Instruct and encourage patient and family to use good hand hygiene technique. 7. Identify and instruct patient/patient solar manufacturer's representative in use of appropriate isolation precautionsfor identified infection/symptoms. 8. Provide and discuss with patient/patient solar manufacturer's representative on educational MDRO sheet. 9. Encourage and monitor nutritional status daily and consult army ranger if indicated. 10. Implement neutropenic guidelines as needed. Outcome: Progressing Note: Evaluation of progress towards goal: Patient's infection is being managed using IV vancomycin. Problem: Knowledge Deficit Goal: Patient/patient solar manufacturer's representative demonstrates understanding of disease process, treatment plan,medications, and discharge instructions Description: INTERVENTIONS 1. Complete learning assessment and assess knowledge base 2. Provide teaching at level of understanding 3. Provide teaching via preferred learning method(s) Outcome: Progressing Note: Evaluation of progress towards goal: Patient understands current treatment plan focused on respiratory care optimization. Problem: Discharge Planning Goal: Discharge to post-acute care, other facility, or home with appropriate resources Description: Patient's goal is: INTERVENTIONS 1. Conduct assessment to determine patient/family and health care team treatment goals, and need for post-acute services based on payer coverage, community resources, and patient preferences, and barriers to discharge 2. Coordinate with Social work, Care Navigation, and Utilization Review to arrange appropriate level of services according to patient's needs based on patient preference and payer coverage in collaboration with the physician and health care team 3. Address psychosocial, clinical, and financial barriers to discharge as identified in assessment in conjunction with the patient/family and health care team 4. Consult appropriate ancillary services (i.e.. PT/OT/ST, etc) as needed 5. Communicate with and update the patient/family, physician, and health care team regarding progress on the discharge plan 6. Identify discharge learning needs (meds, wound care, etc). 7. Arrange for needed discharge transportation as appropriate Outcome: Progressing Note: Evaluation of progress towards goal: Patient will be sent to their prior SNF following discharge. Problem: Moderate - High Risk Fall Score Description: Castillo Fall Score of =/> 25 or indicated by [facility] Assessment Goal: Patient should be free from fall Description: Interventions: 1. Lund to environment 2. Hourly rounds addressing the 4 P's (Pain, Positioning, Possessions, Potty) 3. Clear area of hazards (spills, clutter, electrical cords, unnecessary equipment) 4. Place equipment (bed & TV controls, call light, phone, urinal) within reach 5. Encourage patient to wear glasses and hearing aides as appropriate 6. Maintain bed in lowest position 7. Lock wheels on bed/wheelchair 8. Provide adequate lighting, including night light 9. Assess need for additional bedding, food/fluids, pain med's prior to sleep/routinely 10. Provide gripper slippers or personal non-skid footwear 11. Teach patient and patient solar manufacturer's representative to maintain environment for safety and engage in all aspects of fall prevention program 12. Remind patient to call for help before getting out of bed 13. Initiate bed/chair/exit alarms supportive devices as appropriate, (chair wedge, no-skid floor mat, raised edge mattress, hip protectors) 14. Locate patient bed assignment for optimal visualization 15. Evaluate and identify Safe Patient Handling Equipment needs 16. Provide supervision when out of bed or chair 17. Utilize gait belt as needed to assist with ambulation 18. Place adaptive equipment (cane, walker) within reach 19. Request patient solar manufacturer's representative bring adaptive equipment/mobility aids from home or obtain and provide as needed 20. Consult pharmacy regarding effects of med's affecting mobility, cognition, and alternatives 21. Obtain physician order for PT if risk factors associated with mobility are present 22. Obtain physician order for OT as appropriate 23. Utilize diversional activities 24. Educate patient and patient solar manufacturer's representative how to maintain a safe environment during visitationtimes (notify nurse prior to leaving bedside) 25. Consider appropriateness of medical or non-medical office asst 26. Set up voiding schedule as appropriate (every 2 hours) Outcome: Progressing Note: Evaluation of progress towards goal: ;Patient has not fallen during current admission. Problem: Potential for Compromised Skin Integrity Goal: Skin integrity is maintained or improved Description: Patient's goal is: INTERVENTIONS 1. Perform initial skin assessment on admission and as needed 2. Turn patient every 2 hours and PRN 3. Relieve pressure to bony prominences 4. Avoid shearing 5. Keep skin clean and dry 6. Alternate a full bath with partial baths for elderly 7. Apply lotion/moisturizer on skin 8. Monitor patient's hygiene practices 9. Float heels 10. Collaborate with interdisciplinary team and initiate plans and interventions as needed Outcome: Progressing Note: Evaluation of progress towards goal: Patient's skin remains intact with the assistance of pillow support and independent turns. Problem: Urinary Incontinence Goal: Perineal skin integrity is maintained or improved Description: INTERVENTIONS 1. Assess genitourinary system, perineal skin, labs (urinalysis), and history of incontinence to include past management, aggravating, and alleviating factors 2. Keep skin clean and dry 3. Apply skin protectant 4. Develop skin care regimen 5. Provide privacy when changing patients incontinence device to maintain their dignity 6. Consider placing an indwelling catheter 7. Collaborate with interdisciplinary team and initiate plans and interventions as needed Outcome: Progressing Note: Evaluation of progress towards goal: Patient's perineal skin remains intact with the assistance of an external cath. Problem: Inadequate Breathing Pattern Goal: Patient will maintain effective ventilation Description: Patient's goal is: INTERVENTIONS 1. Assess and monitor vital signs, respiratory status (to include respiratory rate, depth, effort, and breath sounds), oxygen saturation, oral mucosa, tongue, pain, and labs (ABGs). 2. Collaborate with interdisciplinary team and initiate plans and interventions as needed 3. Oxygen therapy as indicated 4. Position patient for maximum ventilatory efficiency 5. Instruct patient to turn, cough, and deep breathe; encourage incentive spirometer if indicated 6. Plan activities to conserve energy 7. Encourage ambulation/activity per patient's tolerance 8. Collaborate with patient/RT to administer medications/treatments 9. Monitor lab/diagnostic results Outcome: Progressing Note: Evaluation of progress towards goal: Patient is breathing independently with baseline supportfrom supplemental oxygen. * Plan of Care - Yuliet Horvath [facility] - 02/10/2025 9:17 PM EDT Problem: Inadequate Breathing Pattern Goal: Patient will maintain effective ventilation Description: Patient's goal is: INTERVENTIONS 1. Assess and monitor vital signs, respiratory status (to include respiratory rate, depth, effort, and breath sounds), oxygen saturation, oral mucosa, tongue, pain, and labs (ABGs). 2. Collaborate with interdisciplinary team and initiate plans and interventions as needed 3. Oxygen therapy as indicated 4. Position patient for maximum ventilatory efficiency 5. Instruct patient to turn, cough, and deep breathe; encourage incentive spirometer if indicated 6. Plan activities to conserve energy 7. Encourage ambulation/activity per patient's tolerance 8. Collaborate with patient/RT to administer medications/treatments 9. Monitor lab/diagnostic results Outcome: Progressing Note: Evaluation of progress towards goal: Respiratory Therapy Clinical Practice Guidelines Consult Clinical Practice Guidelines Ordered Consult Assessment: Consult, Oxygen, Bronchodilator Oxygen Indications: Home oxygen use Bronchodilator Indications: Bronchospasm/wheezing, Home regimen Bronchodilator Total: 2 Vital Signs Pulse: 70 SpO2: 97 % O2 Device: Nasal cannula O2 Flow Rate (L/min): 3 L/min Respiratory Assessment Assessment Type: Pre-treatment Level of Consciousness: Alert Respiratory Pattern: Regular, Dyspnea with exertion Chest Assessment: Chest expansion symmetrical Bilateral Breath Sounds: Diminished Suctioning Suction: Oral, ET Tube Oral Suctioning/Secretions Oral Suction Type: Oral Oral Suction Device: Soft tip Oral Secretion Amount: Small Oral Secretion Color: Dubois Oral Secretion Consistency: Thick Oral Suction Tolerance: Tolerated well Oral Suctioning Adverse Effects: None Airway Suctioning/Secretions Airway Suction Type: Endotracheal tube Airway Suction Device : Inline Airway Secretion Amount: Moderate Airway Secretion Color: Dubois, White Airway Secretion Consistency: Thick Airway Suction Tolerance: Tolerated well Airway Suctioning Adverse Effects: None Patient Active Problem List Diagnosis manager terminal (current) use of anticoagulants Typical atrial flutter ([facility]) Primary hypertension Seasonal allergies Pulmonary nodule less than 6 mm determined by computed tomography of lung Anxiety COPD, severe ([facility]) Chronic respiratory failure with hypoxia and hypercapnia ([facility]) WILIAN treated with BiPAP Mixed hyperlipidemia Myoclonus Acute on chronic respiratory failure ([facility]) Presence of permanent cardiac pacemaker Oliveros RV lead at [facility] 01/28/25 Dr Jamir Manzanares Paroxysmal atrial fibrillation ([facility]) Last Chest XRAY: Reviewed Pulmonary History: copd RT Reassessment Due In: 24 hours Bronchodilator Respiratory Rate Level 3: 20-25 Dyspnea Level 2: Periodic SOB Breath Sounds Level 2: Diminished and/or faint wheezes Respiratory History Level 2: Positive risk factors including but not limited to: History of smoking; History of pulmonary complications ; Smoke inhalation, physical/chemical trauma to the lung or upper airway Oxygen to Keep SpO2 Greater Than Or Equal To 92% Home Therapy: Patient Baseline and Level 2: 1-3 LPM 25%-35% or NIV 41 - 50% Peak Flow ([facility] Only) Patients Current Level & Intervention: 2 Three times daily and Q4 PRN for wheezing * Plan of Care - Lisa Irving RN - 02/10/2025 6:50 PM EDT Problem: Safety Goal: Patient will be injury free during hospitalization Description: INTERVENTIONS: 1. Assess patient's risk for falls and implement fall prevention plan of care per policy 2. Provide and maintain a safe environment 3. Proper use of double Identifiers 4. Medication administration using the 5 rights 5. Hand hygiene 6. Specimens are labeled at the bedside 7. Instruct patient/ patient solar manufacturer's representative about use of safety devices 8. Include patient/ patient solar manufacturer's representative in decisions related to safety Outcome: Progressing Note: Evaluation of progress towards goal: patient remains free from injury Problem: Knowledge Deficit Goal: Patient/patient solar manufacturer's representative demonstrates understanding of disease process, treatment plan,medications, and discharge instructions Description: INTERVENTIONS 1. Complete learning assessment and assess knowledge base 2. Provide teaching at level of understanding 3. Provide teaching via preferred learning method(s) Outcome: Progressing Note: Evaluation of progress towards goal: poc and orders reviewed Problem: Moderate - High Risk Fall Score Description: Castillo Fall Score of =/> 25 or indicated by [facility] Assessment Goal: Patient should be free from fall Description: Interventions: 1. Lund to environment 2. Hourly rounds addressing the 4 P's (Pain, Positioning, Possessions, Potty) 3. Clear area of hazards (spills, clutter, electrical cords, unnecessary equipment) 4. Place equipment (bed & TV controls, call light, phone, urinal) within reach 5. Encourage patient to wear glasses and hearing aides as appropriate 6. Maintain bed in lowest position 7. Lock wheels on bed/wheelchair 8. Provide adequate lighting, including night light 9. Assess need for additional bedding, food/fluids, pain med's prior to sleep/routinely 10. Provide gripper slippers or personal non-skid footwear 11. Teach patient and patient solar manufacturer's representative to maintain environment for safety and engage in all aspects of fall prevention program 12. Remind patient to call for help before getting out of bed 13. Initiate bed/chair/exit alarms supportive devices as appropriate, (chair wedge, no-skid floor mat, raised edge mattress, hip protectors) 14. Locate patient bed assignment for optimal visualization 15. Evaluate and identify Safe Patient Handling Equipment needs 16. Provide supervision when out of bed or chair 17. Utilize gait belt as needed to assist with ambulation 18. Place adaptive equipment (cane, walker) within reach 19. Request patient solar manufacturer's representative bring adaptive equipment/mobility aids from home or obtain and provide as needed 20. Consult pharmacy regarding effects of med's affecting mobility, cognition, and alternatives 21. Obtain physician order for PT if risk factors associated with mobility are present 22. Obtain physician order for OT as appropriate 23. Utilize diversional activities 24. Educate patient and patient solar manufacturer's representative how to maintain a safe environment during visitationtimes (notify nurse prior to leaving bedside) 25. Consider appropriateness of medical or non-medical office asst 26. Set up voiding schedule as appropriate (every 2 hours) Outcome: Progressing Note: Evaluation of progress towards goal: Pt is free from falls, fall risk band on, needs assessed, bed low/locked, call light and belongings within reach, will continue to assess Problem: Infection Goal: Absence of infection during hospitalization Description: INTERVENTIONS 1. Assess and monitor for signs and symptoms of infection. 2. Monitor lab/diagnostic results. 3. Monitor all insertion sites i.e., indwelling lines, tubes and drains. 4. Monitor endotracheal (as able) and nasal secretions for changes in amount and color. 5. Administer medications as ordered. 6. Instruct and encourage patient and family to use good hand hygiene technique. 7. Identify and instruct patient/patient solar manufacturer's representative in use of appropriate isolation precautionsfor identified infection/symptoms. 8. Provide and discuss with patient/patient solar manufacturer's representative on educational MDRO sheet. 9. Encourage and monitor nutritional status daily and consult army ranger if indicated. 10. Implement neutropenic guidelines as needed. Note: Evaluation of progress towards goal: continues on rosemary Problem: Discharge Planning Goal: Discharge to post-acute care, other facility, or home with appropriate resources Description: Patient's goal is: INTERVENTIONS 1. Conduct assessment to determine patient/family and health care team treatment goals, and need for post-acute services based on payer coverage, community resources, and patient preferences, and barriers to discharge 2. Coordinate with Social work, Care Navigation, and Utilization Review to arrange appropriate level of services according to patient's needs based on patient preference and payer coverage in collaboration with the physician and health care team 3. Address psychosocial, clinical, and financial barriers to discharge as identified in assessment in conjunction with the patient/family and health care team 4. Consult appropriate ancillary services (i.e.. PT/OT/ST, etc) as needed 5. Communicate with and update the patient/family, physician, and health care team regarding progress on the discharge plan 6. Identify discharge learning needs (meds, wound care, etc). 7. Arrange for needed discharge transportation as appropriate Note: Evaluation of progress towards goal: awaiting ins auth * PT/OT/TRAINING DESIGNER - INGA Morales - 02/10/2025 5:21 PM EDT Occupational Therapy Treatment Discharge Recommendations for Safe Patient Transition Post Acute Moderate Rehab Needs: Recommend moderate intensity rehab, Tolerate 1- 2 hrs of therapy 3-5 days/wk, Subacute or chronic functional impairment Current Impairments Informing Therapy Recommendation: Ambulation status/safety, Fall risk, ADL status, Endurance level 6 Clicks: Daily Activity Putting on and taking off regular lower body clothing?: A lot Bathing (including washing, rinsing, drying)?: A lot Toileting, which includes using toilet, bedpan or urinal?: Total Putting on and taking off regular upper body clothing?: A lot Taking care of personal grooming such as brushing teeth?: A little Eating meals?: None Scoring Daily Activity Raw Score: 14 CMS G Code Modifier: CK OT Treatment/Interventions: ADL retraining, Functional transfer training, UE strengthening/ROM, Endurance training, Patient/family training, Cognitive reorientation, Equipment eval/education, Balance, Bed mobility, Compensatory technique education, Functional activities OT Frequency: 5-6days/week OT Duration: LOS Assessment Patient Assessment Therapy Problem List: Decreased ADL status, Decreased balance, Decreased endurance, Decreased mobility, Decreased UE strength, Decreased LE strength, Decreased high-level ADLs, Decreased safe judgement during ADL, Decreased self- care trans, Decreased sensation, Decreased UE ROM Patient Response to Treatment: Slow progress, decreased activity tolerance Mood/Affect: Appropriate for circumstances Rehab Prognosis: Good, With continued OT status post acute discharge Visit RN Communication: Yes Medical Record Reviewed: Yes OT Type of Visit: Treatment Precautions Activity: Okay to see per RN Equipment: gait belt, RW Pacemaker/ICD: Pacemaker Telemetry/Supervisor Multifocal Lens: Yes Oxygen Used: 3L Other: Fall risk, high anxiety (medicate prior to therapy session), UE tremors, LUE edema Pain Assessment Pain Assessment: 0-10 Pain Score: 6 Pain Location: Head, Generalized Pain Intervention(s): Repositioned, Ambulation/increased activity Response to Interventions: Quiet, No grimacing ADL / IADL Other: Pt declined ADLs this date. Home Management - IADL Other: Pt declined ADLs this date. Hearing / Speech / Vision Hearing: Within Functional Limits Speech: Within Functional Limits Current Vision: Wears glasses all the time Cognition Orientation Level: Oriented X4 Bed Mobility Supine to Sit: Min assist Other: HOB elevated, cues for sequencing and tech. Pt required A to scoot hips to EOB. Pt seated inchair at exit with call light within reach, RN aware. Transfers Sit to Stand: Min assist Stand to Sit: Min assist Other: Cues for proper hand placement with good carryover. RW utilized for support, no LOB noted. Gait Gait Assistance: Min assist Assistive Device: Rolling walker Gait Distance: 3' Limiting Factors to Gait: Fatigue, Weakness Other: Pt completed functional mobility to chair with BUE support on RW. Cues for breathing, posture, and RW management. Further ambulation deferred 2/2 anxiety this date. Balance Sitting Balance: Static: Good Sitting Balance: Dynamic: Fair (+) Standing Balance: Static: Fair Standing Balance: Dynamic: Fair (-) Other: Pt mildly unsteady with standing/ambulation with no overt LOB or buckling noted. BUE supporton RW throughout. Activity Tolerance Endurance: Tolerates <30 minutes activity WITHOUT vital sign changes Other: Pt limited by fatigue and anxiety. Rest breaks taken as needed. 02/10/25 1514 UE ROM Scapular retraction x Shoulder horizontal abduction/adduction x Elbow flexion/extension x Other BUE AROM Repetitions x12-15 Plan Occupational Therapy Care Plan Occupational Therapy Care Plan (Active) Template: OT - Occupational Therapy Problem: Activity Tolerance Dates: Start: 02/08/25 Disciplines: OT Goal: Tolerate > 30 minutes of activity WITH rest breaks Dates: Start: 02/08/25 Expected End: 03/01/25 Description: Goal Description: Disciplines: OT Outcomes Date/Time User Outcome 02/10/25 1713 INGA Morales Progressing 02/09/25 1552 INGA Lei Not Progressing Goal Note filed on 02/09/25 1552 by INGA Lei Evaluation of progress towards goal: Problem: Bed Mobility Dates: Start: 02/08/25 Disciplines: OT Goal: Patient will perform bed mobility with Stand By Assist Dates: Start: 02/08/25 Expected End: 03/01/25 Description: Goal Description: Disciplines: OT Outcomes Date/Time User Outcome 02/10/25 1713 INGA Morales Progressing 02/09/25 1552 INGA Lei Progressing Goal Note filed on 02/09/25 155 by INGA Lei Evaluation of progress towards goal: Problem: Functional Mobility Dates: Start: 02/08/25 Disciplines: OT Goal: Patient will perform functional mobility with Contact Guard Dates: Start: 02/08/25 Expected End: 03/01/25 Description: Goal Description: Disciplines: OT Outcomes Date/Time User Outcome 02/10/25 INGA Lowe Progressing Problem: Other (Customize) Dates: Start: 02/08/25 Disciplines: OT Goal: Improve Dates: Start: 02/08/25 Expected End: 03/01/25 Description: Pt will participate in BADL routine at SBA level, using AD, AE and/or compensatory strategies as needed. Disciplines: OT Problem: Sitting Balance Dates: Start: 02/08/25 Disciplines: OT Goal: Improve balance to good Dates: Start: 02/08/25 Expected End: 03/01/25 Description: Static Dynamic Disciplines: OT Outcomes Date/Time User Outcome 02/10/25INGA Redmond Progressing 02/09/25 1552 INGA Lei Progressing Goal Note filed on 02/09/25 1552 by INGA Lei Evaluation of progress towards goal: Problem: Standing Balance Dates: Start: 02/08/25 Disciplines: OT Goal: Improve balance to good Dates: Start: 02/08/25 Expected End: 03/01/25 Description: Static Dynamic Disciplines: OT Outcomes Date/Time User Outcome 02/10/25 [id number] Redmond Progressing Problem: Strength Dates: Start: 02/08/25 Disciplines: OT Goal: Improve strength Dates: Start: 02/08/25 Expected End: 03/01/25 Description: Of extremity/ location: BUE AROM/strengthening in all available planes x 15 reps To facilitate: increased overall strength and activity tolerance for ADL/mobility Disciplines: OT Outcomes Date/Time User Outcome 02/10/25 1713 INGA Morales Progressing Problem: Toilet Transfers Dates: Start: 02/08/25 Disciplines: OT Goal: Patient will perform toilet transfers with Stand By Assist Dates: Start: 02/08/25 Expected End: 03/01/25 Description: Goal Description: Disciplines: OT Problem: Transfers Dates: Start: 02/08/25 Disciplines: OT Goal: Patient will perform transfers with Stand By Assist Dates: Start: 02/08/25 Expected End: 03/01/25 Description: Goal Description: Disciplines: OT Outcomes Date/Time User Outcome 02/10/25 1713 INGA Morales Progressing Occupational Therapy Care Plan (Resolved) There are no resolved problems. Principal Problem: Acute on chronic respiratory failure ([facility]) Cosigned by LUIS DANIEL Rizvi at 02/11/2025 6:58 AM EDT Associated attestation - Dinorah Martin OT/L - 02/11/2025 6:58 AM EDT I have reviewed and agree with this note and education documentation for this visit. * PT/OT/TRAINING DESIGNER - Trell Montoya PTA - 02/10/2025 4:08 PM EDT Physical Therapy Treatment Discharge Recommendations for Safe Patient Transition Post Acute Moderate Rehab Needs: Recommend moderate intensity rehab, Tolerate 1- 2 hrs of therapy 3-5 days/wk, Subacute or chronic functional impairment Current Impairments Informing Therapy Recommendation: Ambulation status/safety, Fall risk, Endurance level 6 Clicks: Basic Mobility Turning from your back to your side while in a flat bed without using bed rails?: A little Moving from lying on your back to sitting on side of flat bed without using bed rails?: A little Moving to and from bed to a chair (including w/c)?: A little Standing up from a chair using your arms (e.g. w/c or bedside chair)?: A little To walk in hospital room?: A lot Climbing 3-5 steps with a railing?: Total Scoring 6 Clicks: Basic Mobility Raw Score: 15 CMS G Code Modifier: CK Therapy Plan PT Treatment/Interventions: Functional transfer training, UE strengthening/ROM, LE strengthening/ROM, Endurance training, Equipment eval/education, Balance, Bed mobility, Gait training, Functional activities PT Frequency: 5-6days/week PT Duration: LOS Assessment Patient Assessment Therapy Problem List: Decreased ADL status, Decreased balance, Decreased endurance, Decreased mobility, Decreased UE strength, Decreased LE strength, Decreased high-level ADLs, Decreased safe judgement during ADL, Decreased self- care trans, Decreased sensation, Decreased UE ROM Patient Response to Treatment: Slow progress, decreased activity tolerance Mood/Affect: Appropriate for circumstances Rehab Prognosis: Good, With continued PT status post acute discharge Visit RN Communication: Yes Medical Record Reviewed: Yes PT Type of Visit: Treatment Precautions Activity: Okay to see per RN Equipment: gait belt, RW Pacemaker/ICD: Pacemaker Telemetry/Supervisor Multifocal Lens: Yes Oxygen Used: 3L via NC Other: Fall risk, high anxiety (medicate prior to therapy session), UE tremors, LUE edema Pain Assessment Pain Assessment: 0-10 Pain Score: 6 Observed Behavior: Calm Pain Location: Head, Generalized Pain Intervention(s): Ambulation/increased activity (RN notified) Pain 2 Observed Behavior: Calm Bed Mobility Supine to Sit: Min assist Sit to Supine: Unable to assess Other: w/ HOB elevated pt sat EOB>L requiring Min A to bring trunk off bed and hips to EOB w/ cues given for technique and pacing. Pt seated in chair at end of tx w/ BLE elevated, call light in reach, and all needs met Transfers Sit to Stand: Min assist Stand to Sit: Min assist Other: Min A required to complete stand from EOB w/ cues given for hand placement and technique - good return Gait Base of Support: Narrow Pattern: Decreased elizabeth, R Decreased foot clearance, L Decreased foot clearance, Forward trunk Gait Assistance: Min assist Assistive Device: Rolling walker Gait Distance: 3' Limiting Factors to Gait: Fatigue, Weakness, Decreased safety 2 Turns: Yes Other: Pt ambulated 3' from EOB>chair w/ slow, shuffling elizabeth. Min A for balance and safety w/ cues given for posture, breathing, and to improve TKE during stance phase to prevent buckling. Deferred further ambulation d/t fatigue and anxiety Balance Sitting Balance: Static: Good Sitting Balance: Dynamic: Fair (+) Standing Balance: Static: Fair Standing Balance: Dynamic: Fair (-) Other: Pt fairly steady when sitting unupported at EOB. Pt unsteady when standing and ambulating tochair but no LOB or buckling Activity Tolerance Endurance: Tolerates <30 minutes activity with vital sign changes Other: Fair tolerance, limited by weakness, fatigue, and SpO2 which decreased to upper 80s-low 90s when ambulating and performing UE ther-ex, improving w/ seated break and cues for pursed-lip breathing. Rest breaks taken as needed 02/10/25 1513 LE Seated LE seated exercises performed? Yes Ankle pumps x Long arc quads x Seated marching x Other BLE AROM performed while seated in chair to improve strength and function. Cues given for technique and pacing Repetitions 10 Plan Physical Therapy Care Plan Physical Therapy Care Plan (Active) Template: PT - Physical Therapy Problem: Activity Tolerance Dates: Start: 02/08/25 Disciplines: PT Goal: Tolerate > 30 minutes of activity WITH rest breaks Dates: Start: 02/08/25 Expected End: 03/01/25 Description: Patient to perform functional range/strengthening exercises to improve functional strength and endurance for improved independence and safe mobility. Disciplines: PT Outcomes Date/Time User Outcome 02/10/25 1601 Trell Montoya PTA Progressing 02/09/25 1617 Brittney Reeder PTA Progressing Goal Note filed on 02/10/25 1601 by Trell Montoya PTA Evaluation of progress towards goal: Problem: Bed Mobility Dates: Start: 02/08/25 Disciplines: PT Goal: Patient will perform bed mobility with Stand By Assist Dates: Start: 02/08/25 Expected End: 03/01/25 Description: Pt will perform supine<>sit demonstrating safe technique. Disciplines: PT Outcomes Date/Time User Outcome 02/10/25 1601 Trell Montoya PTA Progressing 02/09/25 1617 Brittney Reeder PTA Progressing Goal Note filed on 02/10/25 1601 by Trell Montoya PTA Evaluation of progress towards goal: Problem: Gait Dates: Start: 02/08/25 Disciplines: PT Goal: Patient will perform gait with Minimum Assist Dates: Start: 02/08/25 Expected End: 03/01/25 Description: Patient will ambulate 30 ft with RW demonstrating safe gait pattern. Disciplines: PT Outcomes Date/Time User Outcome 02/10/25 1601 Trell Montoya PTA Progressing Goal Note filed on 02/10/25 1601 by Trell Montoya PTA Evaluation of progress towards goal: Problem: Standing Balance Dates: Start: 02/08/25 Disciplines: PT Goal: Improve balance to fair Dates: Start: 02/08/25 Expected End: 03/01/25 Description: Pt will demonstrate Fair+ balance with RW during transfers and ambulation to decrease fall risk. Disciplines: PT Outcomes Date/Time User Outcome 02/10/25 1601 Trell Montoya PTA Progressing Goal Note filed on 02/10/25 1601 by Trell Montoya PTA Evaluation of progress towards goal: Problem: Transfers Dates: Start: 02/08/25 Disciplines: PT Goal: Patient will perform transfers with Contact Guard Dates: Start: 02/08/25 Expected End: 03/01/25 Description: Pt will perform sit<>stand transfers with RW consistently demonstrating safe technique. Disciplines: PT Outcomes Date/Time User Outcome 02/10/25 1601 Trell Montoya PTA Progressing 02/09/25 1617 Brittney Reeder PTA Not Progressing Goal Note filed on 02/10/25 1601 by Trell Montoya PTA Evaluation of progress towards goal: Physical Therapy Care Plan (Resolved) There are no resolved problems. Principal Problem: Acute on chronic respiratory failure ([facility]) Cosigned by Trixie Soliz PT at 02/11/2025 1:56 PM EDT Associated attestation - Trixie Soliz PT - 02/11/2025 1:56 PM EDT I have reviewed and agree with this note and education documentation for this visit. * Discharge Planning Note - EDSON Jin - 02/10/2025 11:47 AM EDT Ongoing Assessment for Discharge Needs Reviewed discharge milestones and patient needs related to discharge plan. Current estimated discharge date of February 11, 2025 has been reviewed by treatment team. Ongoing Assessment for Discharge Needs Flowsheet Row Most Recent Value Services Requested Patient expects to be discharged to: [facility] Does the patient wish to have family/friend/caregiver involved in their discharge planning? Yes Does the patient plan to return home to a community setting? Yes Has the family/friend/caregiver been assessed to determine their readiness, skills, capacities, andresources to provide post hospital care? Yes, Caregiver Assessment Completed Discharge Disposition Skilled Return Skilled Return Name [facility] Skilled Return Does the patient need discharge transportation arranged? Yes Transportation Arranged Ambulance DC Planning Complete Discharge Milestones Yes Pt discussed in transition rounds. SUPERVISOR RESPIRATORY met with pt's Jason at the bedside. Pt is sleeping. Jason confirmed plan is for pt to return to [facility]. Task to prior auth team to submitinsurance approval for return. Plan discharge to [facility] when insurance approves. - EDSON Jin 02/10/25 11:49 AM * Discharge Planning Note - Lynn Sellers - 02/10/2025 11:37 AM EDT DISCHARGE PLANNING NOTE Prior auth submitted to: Alexandra Smith Via: [employer] On behalf of : [facility] (P# ; F# ) Ref# [id number] * PT/OT/TRAINING DESIGNER - Amee Bazan CCC-TRAINING DESIGNER - 02/10/2025 10:30 AM EDT Speech Therapy TRAINING DESIGNER Type of Visit: Medical deferral Reasons for Medical Deferral: Respiratory status Pt requiring BiPAP at this time d/t ABG. Will try back as appropriate. * Plan of Care - Katia Williamson RCP - 02/10/2025 10:15 AM EDT Problem: Inadequate Breathing Pattern Goal: Patient will maintain effective ventilation Description: Patient's goal is: INTERVENTIONS 1. Assess and monitor vital signs, respiratory status (to include respiratory rate, depth, effort, and breath sounds), oxygen saturation, oral mucosa, tongue, pain, and labs (ABGs). 2. Collaborate with interdisciplinary team and initiate plans and interventions as needed 3. Oxygen therapy as indicated 4. Position patient for maximum ventilatory efficiency 5. Instruct patient to turn, cough, and deep breathe; encourage incentive spirometer if indicated 6. Plan activities to conserve energy 7. Encourage ambulation/activity per patient's tolerance 8. Collaborate with patient/RT to administer medications/treatments 9. Monitor lab/diagnostic results Outcome: Not Progressing Note: Evaluation of progress towards goal: baseline Respiratory Therapy Clinical Practice Guidelines Consult Clinical Practice Guidelines Ordered Consult Assessment: Consult, Oxygen, Bronchodilator Oxygen Indications: Home oxygen use Bronchodilator Indications: Bronchospasm/wheezing, Home regimen Vital Signs Pulse: 70 Heart Rate Source: Monitor, Pulse Ox SpO2: 99 % O2 Device: Nasal cannula O2 Flow Rate (L/min): 4 L/min Respiratory Assessment Assessment Type: Subsequent assessment, Pre-treatment Level of Consciousness: Alert Respiratory Pattern: Regular, Dyspnea with exertion Chest Assessment: Chest expansion symmetrical Bilateral Breath Sounds: Diminished Readings Vt (observed, mL): 502 mL Minute Ventilation (L/min): 9.1 L/min PIP Observed (cm H2O): 10 cm H2O Total Rate : 29 Leakage: 19 Patient Active Problem List Diagnosis manager terminal (current) use of anticoagulants Typical atrial flutter (CMS-HCC) Primary hypertension Seasonal allergies Pulmonary nodule less than 6 mm determined by computed tomography of lung Anxiety COPD, severe (CMS-HCC) Chronic respiratory failure with hypoxia and hypercapnia (CMS-HCC) WILIAN treated with BiPAP Mixed hyperlipidemia Myoclonus Acute on chronic respiratory failure (CMS-HCC) Presence of permanent cardiac pacemaker Oliveros RV lead at [facility] 01/28/25 Dr Jamir Manzanares Paroxysmal atrial fibrillation ([facility]) Last Chest XRAY: Reviewed Pulmonary History: copd RT Reassessment Due In: 24 hours Bronchodilator Respiratory Rate Level 3: 20-25 Dyspnea Level 2: Periodic SOB Breath Sounds Level 2: Diminished and/or faint wheezes Respiratory History Level 2: Positive risk factors including but not limited to: History of smoking; History of pulmonary complications ; Smoke inhalation, physical/chemical trauma to the lung or upper airway Oxygen to Keep SpO2 Greater Than Or Equal To 92% Home Therapy: Patient Baseline and Level 2: 1-3 LPM 25%-35% or NIV 41 - 50% Peak Flow ([employer] Only) Patients Current Level & Intervention: 2 Three times daily and Q4 PRN for wheezing * Plan of Care - Huey Meade RN - 02/10/2025 2:38 AM EDT Problem: Pain Goal: Patient goal is pain score less than 4, able to rest, and participant in treatment plan as appropriate Description: INTERVENTIONS: 1. Encourage patient or legal solar manufacturer's representative to report early pain and ask for pain medicine when needed 2. Assess pain using appropriate pain scale and include the scale used when documenting 3. Administer analgesics based on type and severity of pain and evaluate response within appropriate time frame 4. Implement non-pharmacological measures as appropriate and evaluate response 5. Consider cultural and social influences on pain and pain management 6. Notify LIP if interventions ineffective or patient reports new pain 7. Monitor vital signs including pulse ox, end-tidal CO2 based on pain intervention 8. Reassess pain per policy 9. Teach patient or legal solar manufacturer's representative interventions for comforting Outcome: Progressing Note: Evaluation of progress towards goal: Patient's pain is being managed using PRN pain meds. Problem: Safety Goal: Patient will be injury free during hospitalization Description: INTERVENTIONS: 1. Assess patient's risk for falls and implement fall prevention plan of care per policy 2. Provide and maintain a safe environment 3. Proper use of double Identifiers 4. Medication administration using the 5 rights 5. Hand hygiene 6. Specimens are labeled at the bedside 7. Instruct patient/ patient solar manufacturer's representative about use of safety devices 8. Include patient/ patient solar manufacturer's representative in decisions related to safety Outcome: Progressing Note: Evaluation of progress towards goal: Patient has not sustained additional injuries since being admitted. Problem: Infection Goal: Absence of infection during hospitalization Description: INTERVENTIONS 1. Assess and monitor for signs and symptoms of infection. 2. Monitor lab/diagnostic results. 3. Monitor all insertion sites i.e., indwelling lines, tubes and drains. 4. Monitor endotracheal (as able) and nasal secretions for changes in amount and color. 5. Administer medications as ordered. 6. Instruct and encourage patient and family to use good hand hygiene technique. 7. Identify and instruct patient/patient solar manufacturer's representative in use of appropriate isolation precautionsfor identified infection/symptoms. 8. Provide and discuss with patient/patient solar manufacturer's representative on educational MDRO sheet. 9. Encourage and monitor nutritional status daily and consult army ranger if indicated. 10. Implement neutropenic guidelines as needed. Outcome: Progressing Note: Evaluation of progress towards goal: Patient's infection is being managed using IV antibiotics. Problem: Knowledge Deficit Goal: Patient/patient solar manufacturer's representative demonstrates understanding of disease process, treatment plan,medications, and discharge instructions Description: INTERVENTIONS 1. Complete learning assessment and assess knowledge base 2. Provide teaching at level of understanding 3. Provide teaching via preferred learning method(s) Outcome: Progressing Note: Evaluation of progress towards goal: Patient understands current treatment plan focused on respiratory care optimization. Problem: Discharge Planning Goal: Discharge to post-acute care, other facility, or home with appropriate resources Description: Patient's goal is: INTERVENTIONS 1. Conduct assessment to determine patient/family and health care team treatment goals, and need for post-acute services based on payer coverage, community resources, and patient preferences, and barriers to discharge 2. Coordinate with Social work, Care Navigation, and Utilization Review to arrange appropriate level of services according to patient's needs based on patient preference and payer coverage in collaboration with the physician and health care team 3. Address psychosocial, clinical, and financial barriers to discharge as identified in assessment in conjunction with the patient/family and health care team 4. Consult appropriate ancillary services (i.e.. PT/OT/ST, etc) as needed 5. Communicate with and update the patient/family, physician, and health care team regarding progress on the discharge plan 6. Identify discharge learning needs (meds, wound care, etc). 7. Arrange for needed discharge transportation as appropriate Outcome: Progressing Note: Evaluation of progress towards goal: Patient will return to prior facility upon discharge. Problem: Moderate - High Risk Fall Score Description: Castillo Fall Score of =/> 25 or indicated by [facility] Assessment Goal: Patient should be free from fall Description: Interventions: 1. [place] to environment 2. Hourly rounds addressing the 4 P's (Pain, Positioning, Possessions, Potty) 3. Clear area of hazards (spills, clutter, electrical cords, unnecessary equipment) 4. Place equipment (bed & TV controls, call light, phone, urinal) within reach 5. Encourage patient to wear glasses and hearing aides as appropriate 6. Maintain bed in lowest position 7. Lock wheels on bed/wheelchair 8. Provide adequate lighting, including night light 9. Assess need for additional bedding, food/fluids, pain med's prior to sleep/routinely 10. Provide gripper slippers or personal non-skid footwear 11. Teach patient and patient solar manufacturer's representative to maintain environment for safety and engage in all aspects of fall prevention program 12. Remind patient to call for help before getting out of bed 13. Initiate bed/chair/exit alarms supportive devices as appropriate, (chair wedge, no-skid floor mat, raised edge mattress, hip protectors) 14. Locate patient bed assignment for optimal visualization 15. Evaluate and identify Safe Patient Handling Equipment needs 16. Provide supervision when out of bed or chair 17. Utilize gait belt as needed to assist with ambulation 18. Place adaptive equipment (cane, walker) within reach 19. Request patient solar manufacturer's representative bring adaptive equipment/mobility aids from home or obtain and provide as needed 20. Consult pharmacy regarding effects of med's affecting mobility, cognition, and alternatives 21. Obtain physician order for PT if risk factors associated with mobility are present 22. Obtain physician order for OT as appropriate 23. Utilize diversional activities 24. Educate patient and patient solar manufacturer's representative how to maintain a safe environment during visitationtimes (notify nurse prior to leaving bedside) 25. Consider appropriateness of medical or non-medical office asst 26. Set up voiding schedule as appropriate (every 2 hours) Outcome: Progressing Note: Evaluation of progress towards goal: Patient has not fallen during current admission. Problem: Potential for Compromised Skin Integrity Goal: Skin integrity is maintained or improved Description: Patient's goal is: INTERVENTIONS 1. Perform initial skin assessment on admission and as needed 2. Turn patient every 2 hours and PRN 3. Relieve pressure to bony prominences 4. Avoid shearing 5. Keep skin clean and dry 6. Alternate a full bath with partial baths for elderly 7. Apply lotion/moisturizer on skin 8. Monitor patient's hygiene practices 9. Float heels 10. Collaborate with interdisciplinary team and initiate plans and interventions as needed Outcome: Progressing Note: Evaluation of progress towards goal: Patient's skin remains intact with the assistance of pillow support and independent turns. Problem: Urinary Incontinence Goal: Perineal skin integrity is maintained or improved Description: INTERVENTIONS 1. Assess genitourinary system, perineal skin, labs (urinalysis), and history of incontinence to include past management, aggravating, and alleviating factors 2. Keep skin clean and dry 3. Apply skin protectant 4. Develop skin care regimen 5. Provide privacy when changing patients incontinence device to maintain their dignity 6. Consider placing an indwelling catheter 7. Collaborate with interdisciplinary team and initiate plans and interventions as needed Outcome: Progressing Note: Evaluation of progress towards goal: Patient's perineal skin remains intact with the assistance of an external cath. Problem: Inadequate Breathing Pattern Goal: Patient will maintain effective ventilation Description: Patient's goal is: INTERVENTIONS 1. Assess and monitor vital signs, respiratory status (to include respiratory rate, depth, effort, and breath sounds), oxygen saturation, oral mucosa, tongue, pain, and labs (ABGs). 2. Collaborate with interdisciplinary team and initiate plans and interventions as needed 3. Oxygen therapy as indicated 4. Position patient for maximum ventilatory efficiency 5. Instruct patient to turn, cough, and deep breathe; encourage incentive spirometer if indicated 6. Plan activities to conserve energy 7. Encourage ambulation/activity per patient's tolerance 8. Collaborate with patient/RT to administer medications/treatments 9. Monitor lab/diagnostic results Outcome: Progressing Note: Evaluation of progress towards goal: Patient is breathing independently with baseline assistance from supplemental oxygen. * Plan of Care - Aye Kern RN - 02/09/2025 3:53 PM EDT Problem: Pain Goal: Patient goal is pain score less than 4, able to rest, and participant in treatment plan as appropriate Description: INTERVENTIONS: 1. Encourage patient or legal solar manufacturer's representative to report early pain and ask for pain medicine when needed 2. Assess pain using appropriate pain scale and include the scale used when documenting 3. Administer analgesics based on type and severity of pain and evaluate response within appropriate time frame 4. Implement non-pharmacological measures as appropriate and evaluate response 5. Consider cultural and social influences on pain and pain management 6. Notify LIP if interventions ineffective or patient reports new pain 7. Monitor vital signs including pulse ox, end-tidal CO2 based on pain intervention 8. Reassess pain per policy 9. Teach patient or legal solar manufacturer's representative interventions for comforting Outcome: Progressing Note: Evaluation of progress towards goal: Discussed with the patient about means of using pharmacologic and nonpharmacologic methods to manage pain, education was completed. Patient has no further questions at time. Problem: Safety Goal: Patient will be injury free during hospitalization Description: INTERVENTIONS: 1. Assess patient's risk for falls and implement fall prevention plan of care per policy 2. Provide and maintain a safe environment 3. Proper use of double Identifiers 4. Medication administration using the 5 rights 5. Hand hygiene 6. Specimens are labeled at the bedside 7. Instruct patient/ patient solar manufacturer's representative about use of safety devices 8. Include patient/ patient solar manufacturer's representative in decisions related to safety Outcome: Progressing Note: Evaluation of progress towards goal: Patient remains injury free at this time. Problem: Infection Goal: Absence of infection during hospitalization Description: INTERVENTIONS 1. Assess and monitor for signs and symptoms of infection. 2. Monitor lab/diagnostic results. 3. Monitor all insertion sites i.e., indwelling lines, tubes and drains. 4. Monitor endotracheal (as able) and nasal secretions for changes in amount and color. 5. Administer medications as ordered. 6. Instruct and encourage patient and family to use good hand hygiene technique. 7. Identify and instruct patient/patient solar manufacturer's representative in use of appropriate isolation precautionsfor identified infection/symptoms. 8. Provide and discuss with patient/patient solar manufacturer's representative on educational MDRO sheet. 9. Encourage and monitor nutritional status daily and consult army ranger if indicated. 10. Implement neutropenic guidelines as needed. Outcome: Progressing Note: Evaluation of progress towards goal: Patient remains afebrile. ATB administered per orders. Problem: Knowledge Deficit Goal: Patient/patient solar manufacturer's representative demonstrates understanding of disease process, treatment plan,medications, and discharge instructions Description: INTERVENTIONS 1. Complete learning assessment and assess knowledge base 2. Provide teaching at level of understanding 3. Provide teaching via preferred learning method(s) Outcome: Progressing Note: Evaluation of progress towards goal: Catalina verbalizes complinace and understanding with current plan of care. Problem: Moderate - High Risk Fall Score Description: Castillo Fall Score of =/> 25 or indicated by [facility] Assessment Goal: Patient should be free from fall Description: Interventions: 1. [place] to environment 2. Hourly rounds addressing the 4 P's (Pain, Positioning, Possessions, Potty) 3. Clear area of hazards (spills, clutter, electrical cords, unnecessary equipment) 4. Place equipment (bed & TV controls, call light, phone, urinal) within reach 5. Encourage patient to wear glasses and hearing aides as appropriate 6. Maintain bed in lowest position 7. Lock wheels on bed/wheelchair 8. Provide adequate lighting, including night light 9. Assess need for additional bedding, food/fluids, pain med's prior to sleep/routinely 10. Provide gripper slippers or personal non-skid footwear 11. Teach patient and patient solar manufacturer's representative to maintain environment for safety and engage in all aspects of fall prevention program 12. Remind patient to call for help before getting out of bed 13. Initiate bed/chair/exit alarms supportive devices as appropriate, (chair wedge, no-skid floor mat, raised edge mattress, hip protectors) 14. Locate patient bed assignment for optimal visualization 15. Evaluate and identify Safe Patient Handling Equipment needs 16. Provide supervision when out of bed or chair 17. Utilize gait belt as needed to assist with ambulation 18. Place adaptive equipment (cane, walker) within reach 19. Request patient solar manufacturer's representative bring adaptive equipment/mobility aids from home or obtain and provide as needed 20. Consult pharmacy regarding effects of med's affecting mobility, cognition, and alternatives 21. Obtain physician order for PT if risk factors associated with mobility are present 22. Obtain physician order for OT as appropriate 23. Utilize diversional activities 24. Educate patient and patient solar manufacturer's representative how to maintain a safe environment during visitationtimes (notify nurse prior to leaving bedside) 25. Consider appropriateness of medical or non-medical office asst 26. Set up voiding schedule as appropriate (every 2 hours) Outcome: Progressing Note: Evaluation of progress towards goal: Catalina barber fall free at this time. Problem: Respiratory - Adult Goal: Achieves optimal ventilation and oxygenation Description: Patient's goal is: INTERVENTIONS: 1. Assess for changes in respiratory status 2. Assess for changes in mentation and behavior 3. Position to facilitate oxygenation and minimize respiratory effort 4. Oxygen supplementation based on oxygen saturation or ABGs as ordered 5. Consult smoking cessation as indicated 6. Encourage broncho-pulmonary hygiene including cough, deep breathe, Incentive Spirometry, keep HOB elevated as tolerated, and encourage ambulation, as ordered 7. Assess the need for suctioning and obtain order to maintain clear airway 8. Assess and instruct patient to report SOB or any respiratory difficulty 9. Assess the need for Respiratory Therapy support if not already ordered 10. Initiate emergency measures for respiratory failure Outcome: Progressing Note: Evaluation of progress towards goal: Patient down to her baseline 5L NC, SPO2 remains above 90% at this time. * PT/OT/TRAINING DESIGNER - CLINTON Lei/Jean Claude - 02/09/2025 2:27 PM EDT Occupational Therapy Treatment Discharge Recommendations for Safe Patient Transition Post Acute Moderate Rehab Needs: Recommend moderate intensity rehab, Tolerate 1- 2 hrs of therapy 3-5 days/wk, Subacute or chronic functional impairment Current Impairments Informing Therapy Recommendation: Ambulation status/safety, Fall risk, ADL status, Endurance level 6 Clicks: Daily Activity Putting on and taking off regular lower body clothing?: Total Bathing (including washing, rinsing, drying)?: A lot Toileting, which includes using toilet, bedpan or urinal?: Total Putting on and taking off regular upper body clothing?: A lot Taking care of personal grooming such as brushing teeth?: A little Eating meals?: None Scoring Daily Activity Raw Score: 13 CMS G Code Modifier: CL OT Treatment/Interventions: ADL retraining, Functional transfer training, UE strengthening/ROM, Endurance training, Patient/family training, Cognitive reorientation, Equipment eval/education, Balance, Bed mobility, Compensatory technique education, Functional activities OT Frequency: 5-6days/week Assessment Patient Assessment Patient Response to Treatment: Slow progress, multiple tests/procedures Visit RN Communication: Yes Medical Record Reviewed: Yes OT Type of Visit: Treatment Precautions Activity: early mobility: pass, ok to see per RN Equipment: Gait belt, Patti Stedy, O2, external catheter Pacemaker/ICD: Pacemaker Telemetry/Supervisor Multifocal Lens: Yes Oxygen Used: 5L O2 Other: Fall risk, high anxiety (medicate prior to therapy session), level 2 mildly thick liquids, UE tremors, LUE edema Pain Assessment Pain Assessment: 0-10 Pain Score: 7 Pain Location: Head Pain Descriptors: Headache Pain Intervention(s): Repositioned Response to Interventions: Quiet Hearing / Speech / Vision Hearing: Within Functional Limits Speech: Within Functional Limits Current Vision: Wears glasses all the time Cognition Orientation Level: Oriented X4 Other: pt. pleasant and agreeable to therapy session. Bed Mobility Supine to Sit: Min assist Sit to Supine: Min assist Other: with HOB elevated - pt. able to get OOB with min A for trunk. Cues to scoot hips forward to EOB - mild c/o dizziness noted. Pt. returned to bed at end of tx. session - HOB flat and min A to complete for BLE. Total A for boosting to HOB. Pt. left supine in bed with call light in reach and PICC line RN in room. Transfers Other: ELIZABETH this date d/t medical staff specialist arriving for PICC line adjustment. Gait Other: ELIZABETH Balance Sitting Balance: Static: Good Sitting Balance: Dynamic: Fair (+) Other: Pt. tolerated sitting EOB approx. 5 minutes with UE support on bed working on sitting balance/endurance. Activity Tolerance Endurance: Tolerates <30 minutes activity WITHOUT vital sign changes Other: rest breaks taken as needed - SpO2 monitored throughout tx. session and remained above 90%. Tx. session cut short this date d/t RN arriving for PICC line adjustment. Plan Occupational Therapy Care Plan Occupational Therapy Care Plan (Active) Template: OT - Occupational Therapy Problem: Activity Tolerance Dates: Start: 02/08/25 Disciplines: OT Goal: Tolerate > 30 minutes of activity WITH rest breaks Dates: Start: 02/08/25 Expected End: 03/01/25 Description: Goal Description: Disciplines: OT Outcomes Date/Time User Outcome 02/09/25 1552 INGA Lei Not Progressing Goal Note filed on 02/09/25 155 by INGA Lei Evaluation of progress towards goal: Problem: Bed Mobility Dates: Start: 02/08/25 Disciplines: OT Goal: Patient will perform bed mobility with Stand By Assist Dates: Start: 02/08/25 Expected End: 03/01/25 Description: Goal Description: Disciplines: OT Outcomes Date/Time User Outcome 02/09/25 1552 INGA Lei Progressing Goal Note filed on 02/09/25 155 by INGA Lei Evaluation of progress towards goal: Problem: Functional Mobility Dates: Start: 02/08/25 Disciplines: OT Goal: Patient will perform functional mobility with Contact Guard Dates: Start: 02/08/25 Expected End: 03/01/25 Description: Goal Description: Disciplines: OT Problem: Other (Customize) Dates: Start: 02/08/25 Disciplines: OT Goal: Improve Dates: Start: 02/08/25 Expected End: 03/01/25 Description: Pt will participate in BADL routine at SBA level, using AD, AE and/or compensatory strategies as needed. Disciplines: OT Problem: Sitting Balance Dates: Start: 02/08/25 Disciplines: OT Goal: Improve balance to good Dates: Start: 02/08/25 Expected End: 03/01/25 Description: Static Dynamic Disciplines: OT Outcomes Date/Time User Outcome 02/09/25 1552 INGA Lei Progressing Goal Note filed on 02/09/25 155 by INGA Lei Evaluation of progress towards goal: Problem: Standing Balance Dates: Start: 02/08/25 Disciplines: OT Goal: Improve balance to good Dates: Start: 02/08/25 Expected End: 03/01/25 Description: Static Dynamic Disciplines: OT Problem: Strength Dates: Start: 02/08/25 Disciplines: OT Goal: Improve strength Dates: Start: 02/08/25 Expected End: 03/01/25 Description: Of extremity/ location: BUE AROM/strengthening in all available planes x 15 reps To facilitate: increased overall strength and activity tolerance for ADL/mobility Disciplines: OT Problem: Toilet Transfers Dates: Start: 02/08/25 Disciplines: OT Goal: Patient will perform toilet transfers with Stand By Assist Dates: Start: 02/08/25 Expected End: 03/01/25 Description: Goal Description: Disciplines: OT Problem: Transfers Dates: Start: 02/08/25 Disciplines: OT Goal: Patient will perform transfers with Stand By Assist Dates: Start: 02/08/25 Expected End: 03/01/25 Description: Goal Description: Disciplines: OT Occupational Therapy Care Plan (Resolved) There are no resolved problems. Principal Problem: Acute on chronic respiratory failure ([facility]-H[facility]) Cosigned by Dinorah Martin OT/L at 02/10/2025 9:48 AM EDT Associated attestation - Dinorah Martin OT/Jean Claude - 02/10/2025 9:48 AM EDT I have reviewed and agree with this note and education documentation for this visit. * PT/OT/TRAINING DESIGNER - Brittney Reeder PTA - 02/09/2025 2:26 PM EDT Physical Therapy Treatment Discharge Recommendations for Safe Patient Transition Post Acute Moderate Rehab Needs: Recommend moderate intensity rehab, Tolerate 1- 2 hrs of therapy 3-5 days/wk, Subacute or chronic functional impairment Current Impairments Informing Therapy Recommendation: Ambulation status/safety, Fall risk, ADL status, Endurance level, Caregiver needs/level of support 6 Clicks: Basic Mobility Turning from your back to your side while in a flat bed without using bed rails?: A little Moving from lying on your back to sitting on side of flat bed without using bed rails?: A little Moving to and from bed to a chair (including w/c)?: A lot Standing up from a chair using your arms (e.g. w/c or bedside chair)?: A little To walk in hospital room?: Total Climbing 3-5 steps with a railing?: Total Scoring 6 Clicks: Basic Mobility Raw Score: 13 [facility] G Code Modifier: CK Therapy Plan PT Treatment/Interventions: Functional transfer training, UE strengthening/ROM, LE strengthening/ROM, Endurance training, Equipment eval/education, Balance, Bed mobility, Gait training, Functional activities PT Frequency: 5-6days/week PT Duration: LOS Assessment Patient Assessment Therapy Problem List: Decreased ADL status, Decreased balance, Decreased endurance, Decreased mobility, Decreased UE strength, Decreased LE strength, Decreased high-level ADLs, Decreased safe judgement during ADL, Decreased self- care trans, Decreased sensation, Decreased UE ROM Patient Response to Treatment: Slow progress, multiple tests/procedures Mood/Affect: Appropriate for circumstances Rehab Prognosis: Good, With continued PT status post acute discharge Visit RN Communication: Yes Medical Record Reviewed: Yes PT Type of Visit: Treatment Precautions Activity: ok to tx per RN Equipment: Gait belt, Patti Stedy, O2, external catheter Pacemaker/ICD: Pacemaker Telemetry/Supervisor Multifocal Lens: Yes Oxygen Used: 5L Other: Fall risk, high anxiety (medicate prior to therapy session), level 2 mildly thick liquids, UE tremors, LUE edema Pain Assessment Pain Assessment: 0-10 Pain Score: 7 Pain Location: Head Pain Descriptors: Headache Pain Intervention(s): Repositioned Response to Interventions: Quiet Hearing / Speech / Vision Hearing: Within Functional Limits Speech: Within Functional Limits Current Vision: Wears glasses all the time Cognition Orientation Level: Oriented X4 Other: Pt is pleasant and participative during tx session Bed Mobility Supine to Sit: Min assist Sit to Supine: Min assist Other: Pt completed supine>sit with HOB elevated and MIN A for trunk support. Education providedon scooting forward to position LEs on the floor for inc stability. Pt reporting minor dizziness with positional change. BP assessed and WFL. PICC line RN in room during session requesting for pt to return to supine- assisted back to supine with MIN A for trunk and BLE support and HOB flattened. TOTAL A required to boost into higher position in bed. Ended tx session with call light in reach, all needs met, RN aware. Transfers Other: Unable to assess- RN arrived to room during tx for PICC line adjustment. Pt assisted back tosupine. Gait Other: NT Balance Sitting Balance: Static: Good Sitting Balance: Dynamic: Fair (+) Other: Pt completed unsupported sitting tasks and transfer prep at EOB for approx 5' with intermittent UE support for stability. Minor unsteadiness noted, however no overt LOB present. Unable to assess standing balance at this time. Activity Tolerance Endurance: Tolerates <30 minutes activity WITHOUT vital sign changes Other: Pt required intermittent rest breaks during tx session secondary to fatigue, weakness, and decreased endurance. Session limited by staff arriving for PICC line adjustment. Plan Physical Therapy Care Plan Physical Therapy Care Plan (Active) Template: PT - Physical Therapy Problem: Activity Tolerance Dates: Start: 02/08/25 Disciplines: PT Goal: Tolerate > 30 minutes of activity WITH rest breaks Dates: Start: 02/08/25 Expected End: 03/01/25 Description: Patient to perform functional range/strengthening exercises to improve functional strength and endurance for improved independence and safe mobility. Disciplines: PT Outcomes Date/Time User Outcome 02/09/251616 Brittney Reeder PTA Progressing Goal Note filed on 02/09/251616 by Brittney Reeder PTA Evaluation of progress towards goal: Problem: Bed Mobility Dates: Start: 02/08/25 Disciplines: PT Goal: Patient will perform bed mobility with Stand By Assist Dates: Start: 02/08/25 Expected End: 03/01/25 Description: Pt will perform supine<>sit demonstrating safe technique. Disciplines: PT Outcomes Date/Time User Outcome 02/09/251616 Brittney Reeder PTA Progressing Goal Note filed on 02/09/251616 by Brittney Reeder PTA Evaluation of progress towards goal: Problem: Gait Dates: Start: 02/08/25 Disciplines: PT Goal: Patient will perform gait with Minimum Assist Dates: Start: 02/08/25 Expected End: 03/01/25 Description: Patient will ambulate 30 ft with RW demonstrating safe gait pattern. Disciplines: PT Problem: Standing Balance Dates: Start: 02/08/25 Disciplines: PT Goal: Improve balance to fair Dates: Start: 02/08/25 Expected End: 03/01/25 Description: Pt will demonstrate Fair+ balance with RW during transfers and ambulation to decrease fall risk. Disciplines: PT Problem: Transfers Dates: Start: 02/08/25 Disciplines: PT Goal: Patient will perform transfers with Contact Guard Dates: Start: 02/08/25 Expected End: 03/01/25 Description: Pt will perform sit<>stand transfers with RW consistently demonstrating safe technique. Disciplines: PT Outcomes Date/Time User Outcome 02/09/251616 Brittney Reeder PTA Not Progressing Goal Note filed on 02/09/251616 by Brittney Reeder PTA Evaluation of progress towards goal: Physical Therapy Care Plan (Resolved) There are no resolved problems. Principal Problem: Acute on chronic respiratory failure (CMS-HCC) Cosigned by Rudy Noonan PT at 02/09/2025 4:38 PM EDT Associated attestation - Rudy Noonan, PT - 02/09/2025 4:38 PM EDT I have reviewed and agree with this note and education documentation for this visit. * Plan of Care - Yazmin Rodgers DO - 02/09/2025 1:28 PM EDT ICU TRANSFER NOTE Date of Admission: 02/04/2025 ICU Length of Stay: 5d 2h Primary Diagnosis: MDRO Staphylococcus Hominis Sepsis, likely dual-chamber pacemaker placement source BCx 10/17 showing Staphylococcus hominis with multiple resistance genes collected on 02/04 Repeat BCx x2 collected 02/05 NGTD x2 days Other Problems: Acute septic encephalopathy, resolved GCS of 6 requiring intubation for airway protection Acute on chronic hypoxic hypercarbic respiratory failure s/p Intubation 02/04- 02/05, improving Baseline pCO2 approx 60-[address] chest w/ contrast (02/04) showed right greater than left b/l pleural effusions Paroxysmal atrial fibrillation/flutter with RVR s/p CTI RFA ablation 2021, AV node ablation and dual-chamber pacemaker placement 01/28/25 Oliveros interrogation of dual-chamber pacemaker resulted with no events in the past 24 hours - 02/05/25 EP consultation 02/04/25: discontinue flecanide, metoprolol, recommend anticoagulation with warfarin Left chest hematoma s/p dual-chamber pacemaker placement on 01/28 Shock, most likely septic in setting of pneumonia and bacteremia, resolved Vasopressors off as of 02/06/25 COPD on 3L O2, on Azithromycin 3 times weekly Normocytic anemia Hypothyroidism WILIAN Brief ICU Course Minnie Cortez is a 64 y.o. female Minnie Cortez is a 64 y.o. female with a past medical history of chronic hypercarbic respiratory failure secondary to COPD on 3L O2 (baseline CO2: 60), WILIAN, and paroxysmal A-Fib on Warfarin s/p prior DCCV, CTI RFA ablation with dual-chamber pacemaker placement onprevious admission one week ago. Patient was recently hospitalized at [facility] from 02/03 01/30 due to Afib with RVR, and situation was C/B intubation sedation in the ICU due to altered mentation and removing BiPAP machine from progressive unit. Patient was extubated after a couple of days, and had AV node RFA with dual chamber pacemaker placement by electrophysiology and recommended to continue flecainide and metoprolol if converted back to AFib with RVR. Patient was discharged on therapeutic range Coumadin INR 2.8, and [place]. Very little information was received from handoff from [facility], however patient was found unresponsive at [facility] and had a GCS score of [address] to [address] hospital and decreased to 6 which required intubation for protection of airway. Patient was then transferred back to [facility] ICU for concern of decompensation. CT brain without contrast and CT chest abdomen and pelvis with contrast weredone at [place], and only remarkable finding was pleural effusion b/l With [id number], and some anasarca in the abdomen. Oliveros interrogation of AICD showed no event occurred any time during this morning or afternoon. Electrophysiology was consulted for evaluation as patient is telemet ry showed concerns for NSVT. No further information was known, and patient was intubated and sedated upon arrival. Moving all 4 extremities spontaneously. 02/05/2025: Patient was extubated. Failed swallow bedside swallow test. Warfarin subtherapeutic; initiated on heparin. 02/07: BCx x2 Staphylococcus hominis, continue vancomycin and can discontinue Zosyn per ID. Weaning off Precedex and restarted all anti anxiolytic medications trazodone, Atarax, BuSpar. Started warfarin in the afternoon. 02/09: PICC line order placed, antibiotics for vancomycin IV 2 weeks per ID, we will require BCx x2 2 and 4 weeks after completion of antibiotic course. Things to Follow: Follow up with PICC line placement, vancomycin for 2 weeks planned, and blood cultures after 2 and 4 weeks post completion of antibiotics course Prior authorization for [facility] placement Follow up on anxiolytics as patient is severely anxious Maintain PT/OT sessions Yazmin Rodgers DO Internal Medicine Resident 1:27 PM 02/09/25 Cosigned by Alejo Villalobos MD at 02/09/2025 3:50 PM EDT Associated attestation - Alejo Villalobos MD - 02/09/2025 3:50 PM EDT Agree with above I personally saw this patient on the day of the encounter, performed the gamez portion(s) of the service and participated in the management and confirm the resident/fellow???s documentation. Please note there may be additional personal documentation from me Patient was extubated to nasal cannula 3 days ago, Blood culture came back positive for Staphylococcus hominis. Continue vancomycin through February 18. PICC line was placed. Precedex weaned off. H&H has been stable, continue anticoagulation with Coumadin and monitor INR Alejo Villalobos MD Pulmonary and critical care [facility] * Discharge Planning Note - Alexandra Dumont RN - 02/09/2025 11:50 AM EDT DISCHARGE PLANNING NOTE Case discussed in daily transition rounds and chart reviewed by CN. Barriers to discharge include 3L NC Bi-Pap at , Palliative consulted, order for PICC line will need Vanco for 2 weeks per ID's note. Discharge Plan remains: return to [facility] [place] to complete therapy. In for transfer to Progressive floor transfer. CN will continue to follow and is available should any further needs arise. - Alexandra Dumont RN 02/09/25 11:50 AM * Significant Event - Heather Samuel APRN-MASTER PILOT - 02/09/2025 8:03 AM EDT Images from the original note were not included. Patient name: Minnie Cortez Date of : 1960 Admission date: 02/04/2025 ANTIBIOTIC ORDERS Infectious Diseases Diagnosis for antibiotic management: CoNS Bacteremia in the setting of recent dual chamber PPM Name/dosing/frequency of antibiotic: Vancomycin Continue antibiotics through: 02/18/2025 Pharmacy to dose LABORATORY ORDERS: Draw WEEKLY the following labs: CBC Basic metabolic panel >>>FAX RESULTS TO [phone] <<< Discontinue laboratory orders when antibiotics have completed Call Infectious Diseases with critical lab values. CONTACT NUMBERS For all questions call: [phone] or [phone] IV ACCESS: PICC line OK to draw blood from IV access device: yes Leave intravenous access in place until patient's follow up appointment. IV ACCESS FLUSHING ORDERS PER INFUSION COMPANY PROTOCOL ID PHYSICIAN WHO WILL BE OVERSEEING OUTPATIENT IV ANTIMICROBIAL THERAPY: Heather Samuel CNP PRIMARY CARE PROVIDER: HOUSTON BROWN MD ALLERGIES: Allergies Allergen Reactions Lyrica [Pregabalin] Zonisamide Swelling Trouble breathing, tongue swells Nickel Rash WEIGHT: Wt Readings from Last 1 Encounters: 02/09/25 55.5 kg (122 lb 5.7 oz) HEIGHT: Ht Readings from Last 1 Encounters: 02/06/25 157.5 cm (5' 2.01 ) RECENT LABS: Results from last 7 days Lab Units 02/09/25 0117 SODIUM mmol/L 145 POTASSIUM mmol/L 4.3 CHLORIDE mmol/L 100 CO2 mmol/L 42* BUN mg/dL 13 CREATININE mg/dL 0.39* GLUCOSE mg/dL 148* CALCIUM mg/dL 8.3* Results from last 7 days Lab Units 02/09/25 0117 WBC x10E9/L 5.1 HEMOGLOBIN g/dL 9.5* HEMATOCRIT % 29.8* PLATELETS X10E9/L 129* LYMPHO PCT MAN % 7 MONO PCT MAN % 7 Significant Hospital Summary: CoNS Bacteremia, Staph hominis PAF with RVR, s/p PPM (01/28/2025) Pt recently had a dual chamber pacemaker placed 01/28/2025 for PAF with RVR Blood cultures 02/04/2025 with CoNS, identified as Staph hominis in 2/2 bottles TTE was negative for valve vegetations Blood cultures cleared rapidly as of 02/05/2025 We are recommending IV Vanco x2 weeks of therapy (EOT 02/18/2025) followed by surveillance blood cultures at 2 and 4 weeks post antibiotic completion (03/04/2025 and 03/18/2025 respectively) No objection to PICC line placement at this time Acute/Chronic Hypoxic Respiratory Failure COPD, on 3L per NC at baseline Pt's O2 needs are near baseline On Azithromycin 3x weekly MICROBIOLOGY: see above DISPOSITION: stable Follow-up: Patient needs to follow up in 2 weeks. Please call patient to schedule appointment. ANGELICA Macias 02/09/25 0804 * Plan of Care - Grady GranadosLANCE - 02/09/2025 7:45 AM EDT Problem: Inadequate Breathing Pattern Goal: Patient will maintain effective ventilation Description: Patient's goal is: INTERVENTIONS 1. Assess and monitor vital signs, respiratory status (to include respiratory rate, depth, effort, and breath sounds), oxygen saturation, oral mucosa, tongue, pain, and labs (ABGs). 2. Collaborate with interdisciplinary team and initiate plans and interventions as needed 3. Oxygen therapy as indicated 4. Position patient for maximum ventilatory efficiency 5. Instruct patient to turn, cough, and deep breathe; encourage incentive spirometer if indicated 6. Plan activities to conserve energy 7. Encourage ambulation/activity per patient's tolerance 8. Collaborate with patient/RT to administer medications/treatments 9. Monitor lab/diagnostic results Outcome: Progressing Note: Evaluation of progress towards goal: no current CXR Respiratory Therapy Clinical Practice Guidelines Consult Clinical Practice Guidelines Ordered Consult Assessment: Consult, NIV CPAP, Bronchodilator Bronchodilator Indications: Bronchospasm/wheezing Bronchodilator Total: 2 Vital Signs Pulse: 78 Resp: 16 SpO2: 100 % Respiratory Assessment Assessment Type: Post-treatment Level of Consciousness: Alert Respiratory Pattern: Regular, Dyspnea with exertion Chest Assessment: Chest expansion symmetrical Bilateral Breath Sounds: Diminished Patient Active Problem List Diagnosis senior living (current) use of anticoagulants Typical atrial flutter ([facility]) Primary hypertension Seasonal allergies Pulmonary nodule less than 6 mm determined by computed tomography of lung Anxiety COPD, severe ([facility]) Chronic respiratory failure with hypoxia and hypercapnia ([facility]) WILIAN treated with BiPAP Mixed hyperlipidemia NSTEMI (non-ST elevated myocardial infarction) ([facility]) Myoclonus Acute on chronic respiratory failure ([facility]) Last Chest XRAY: Reviewed Pulmonary History: COPD WILIAN RT Reassessment Due In: 12 hours Bronchodilator Respiratory Rate Level 1: Less than 20 Dyspnea Level 2: Periodic SOB Breath Sounds Level 2: Diminished and/or faint wheezes Respiratory History Level 4: Diagnosis of pulmonary disease such as: Asthma/reactive airway disease; Bronchitis/Emphysema (COPD) ; Cystic Fibrosis ; Severe Laryngitis/Tracheitis/Bronchiectasis ; Microbial infection ; Anesthesia related bronchospasms Oxygen to Keep SpO2 Greater Than Or Equal To 92% Level 2: 1-3 LPM 25%-35% or NIV 41 - 50% Peak Flow ([employer] Only) Home Therapy: Not Applicable Patients Current Level & Intervention: TID 02/04 CXR right side atelectasis left clear, wears BiPAP overnight * Plan of Care - Eugenie Monroy RN - 02/09/2025 7:30 AM EDT Problem: Pain Goal: Patient goal is pain score less than 4, able to rest, and participant in treatment plan as appropriate Description: INTERVENTIONS: 1. Encourage patient or legal solar manufacturer's representative to report early pain and ask for pain medicine when needed 2. Assess pain using appropriate pain scale and include the scale used when documenting 3. Administer analgesics based on type and severity of pain and evaluate response within appropriate time frame 4. Implement non-pharmacological measures as appropriate and evaluate response 5. Consider cultural and social influences on pain and pain management 6. Notify LIP if interventions ineffective or patient reports new pain 7. Monitor vital signs including pulse ox, end-tidal CO2 based on pain intervention 8. Reassess pain per policy 9. Teach patient or legal solar manufacturer's representative interventions for comforting Outcome: Progressing Note: Evaluation of progress towards goal: Pain scales done q4h, vital signs monitored Problem: Safety Goal: Patient will be injury free during hospitalization Description: INTERVENTIONS: 1. Assess patient's risk for falls and implement fall prevention plan of care per policy 2. Provide and maintain a safe environment 3. Proper use of double Identifiers 4. Medication administration using the 5 rights 5. Hand hygiene 6. Specimens are labeled at the bedside 7. Instruct patient/ patient solar manufacturer's representative about use of safety devices 8. Include patient/ patient solar manufacturer's representative in decisions related to safety Outcome: Progressing Note: Evaluation of progress towards goal: patient remains free of injury during hospitalization Problem: Infection Goal: Absence of infection during hospitalization Description: INTERVENTIONS 1. Assess and monitor for signs and symptoms of infection. 2. Monitor lab/diagnostic results. 3. Monitor all insertion sites i.e., indwelling lines, tubes and drains. 4. Monitor endotracheal (as able) and nasal secretions for changes in amount and color. 5. Administer medications as ordered. 6. Instruct and encourage patient and family to use good hand hygiene technique. 7. Identify and instruct patient/patient solar manufacturer's representative in use of appropriate isolation precautionsfor identified infection/symptoms. 8. Provide and discuss with patient/patient solar manufacturer's representative on educational MDRO sheet. 9. Encourage and monitor nutritional status daily and consult army ranger if indicated. 10. Implement neutropenic guidelines as needed. Outcome: Progressing Note: Evaluation of progress towards goal: Patient labs drawn and monitored, sites assessed and reassessed for signs and symptoms of infection. Problem: Knowledge Deficit Goal: Patient/patient solar manufacturer's representative demonstrates understanding of disease process, treatment plan,medications, and discharge instructions Description: INTERVENTIONS 1. Complete learning assessment and assess knowledge base 2. Provide teaching at level of understanding 3. Provide teaching via preferred learning method(s) Outcome: Progressing Note: Evaluation of progress towards goal: Goals of care reviewed, plan of care continued. Palliative Care consulted ofr goals of care discussion Problem: Discharge Planning Goal: Discharge to post-acute care, other facility, or home with appropriate resources Description: Patient's goal is: INTERVENTIONS 1. Conduct assessment to determine patient/family and health care team treatment goals, and need for post-acute services based on payer coverage, community resources, and patient preferences, and barriers to discharge 2. Coordinate with Social work, Care Navigation, and Utilization Review to arrange appropriate level of services according to patient's needs based on patient preference and payer coverage in collaboration with the physician and health care team 3. Address psychosocial, clinical, and financial barriers to discharge as identified in assessment in conjunction with the patient/family and health care team 4. Consult appropriate ancillary services (i.e.. PT/OT/ST, etc) as needed 5. Communicate with and update the patient/family, physician, and health care team regarding progress on the discharge plan 6. Identify discharge learning needs (meds, wound care, etc). 7. Arrange for needed discharge transportation as appropriate Outcome: Progressing Note: Evaluation of progress towards goal: Patient not appropriate for discharge at this time. Problem: Moderate - High Risk Fall Score Description: Castillo Fall Score of =/> 25 or indicated by [facility] Assessment Goal: Patient should be free from fall Description: Interventions: 1. Lund to environment 2. Hourly rounds addressing the 4 P's (Pain, Positioning, Possessions, Potty) 3. Clear area of hazards (spills, clutter, electrical cords, unnecessary equipment) 4. Place equipment (bed & TV controls, call light, phone, urinal) within reach 5. Encourage patient to wear glasses and hearing aides as appropriate 6. Maintain bed in lowest position 7. Lock wheels on bed/wheelchair 8. Provide adequate lighting, including night light 9. Assess need for additional bedding, food/fluids, pain med's prior to sleep/routinely 10. Provide gripper slippers or personal non-skid footwear 11. Teach patient and patient solar manufacturer's representative to maintain environment for safety and engage in all aspects of fall prevention program 12. Remind patient to call for help before getting out of bed 13. Initiate bed/chair/exit alarms supportive devices as appropriate, (chair wedge, no-skid floor mat, raised edge mattress, hip protectors) 14. Locate patient bed assignment for optimal visualization 15. Evaluate and identify Safe Patient Handling Equipment needs 16. Provide supervision when out of bed or chair 17. Utilize gait belt as needed to assist with ambulation 18. Place adaptive equipment (cane, walker) within reach 19. Request patient solar manufacturer's representative bring adaptive equipment/mobility aids from home or obtain and provide as needed 20. Consult pharmacy regarding effects of med's affecting mobility, cognition, and alternatives 21. Obtain physician order for PT if risk factors associated with mobility are present 22. Obtain physician order for OT as appropriate 23. Utilize diversional activities 24. Educate patient and patient solar manufacturer's representative how to maintain a safe environment during visitationtimes (notify nurse prior to leaving bedside) 25. Consider appropriateness of medical or non-medical office asst 26. Set up voiding schedule as appropriate (every 2 hours) Outcome: Progressing Note: Evaluation of progress towards goal: Bed locked and low, hourly rounding performed, patient SPH needs assessed and reassessed PRN and per policy. Problem: Potential for Compromised Skin Integrity Goal: Skin integrity is maintained or improved Description: Patient's goal is: INTERVENTIONS 1. Perform initial skin assessment on admission and as needed 2. Turn patient every 2 hours and PRN 3. Relieve pressure to bony prominences 4. Avoid shearing 5. Keep skin clean and dry 6. Alternate a full bath with partial baths for elderly 7. Apply lotion/moisturizer on skin 8. Monitor patient's hygiene practices 9. Float heels 10. Collaborate with interdisciplinary team and initiate plans and interventions as needed Outcome: Progressing Note: Evaluation of progress towards goal: Patient repositioned at least Q2 hours. Heels floated, skin care provided. Goal: Patient's nutritional intake is adequate Description: Patient's goal is: INTERVENTIONS 1. Assess and monitor food intake and supplements, patient food preferences, nausea, vomiting, labs, oral cavity (gums, teeth, tongue, mucosa), proper denture fit, and cultural beliefs 2. Monitor for signs of hypoglycemia and hyperglycemia 3. Collaborate with interdisciplinary team and initiate plan and interventions as ordered 4. Monitor patient's weight 5. Assist patient with meals/food selection 6. Assist patient with eating 7. Allow adequate time for meals 8. Provide pleasant environment during mealtime 9. Increase social contact during mealtimes 10. Plan activities to conserve energy 11. Encourage/perform oral hygiene as appropriate 12. Encourage patient to take dietary supplement as ordered 13. Collaborate with clinical army ranger 14. Include patient/ patient's solar manufacturer's representative in decisions related to nutrition Outcome: Progressing Note: Evaluation of progress towards goal: Patient appropriate for room service and eats independently. Nutritional status assessed and reassessed per policy. Problem: Urinary Incontinence Goal: Perineal skin integrity is maintained or improved Description: INTERVENTIONS 1. Assess genitourinary system, perineal skin, labs (urinalysis), and history of incontinence to include past management, aggravating, and alleviating factors 2. Keep skin clean and dry 3. Apply skin protectant 4. Develop skin care regimen 5. Provide privacy when changing patients incontinence device to maintain their dignity 6. Consider placing an indwelling catheter 7. Collaborate with interdisciplinary team and initiate plans and interventions as needed Outcome: Progressing Note: Evaluation of progress towards goal: Delfina/ burr care done PRN and per policy. Problem: Inadequate Breathing Pattern Goal: Patient will maintain effective ventilation Description: Patient's goal is: INTERVENTIONS 1. Assess and monitor vital signs, respiratory status (to include respiratory rate, depth, effort, and breath sounds), oxygen saturation, oral mucosa, tongue, pain, and labs (ABGs). 2. Collaborate with interdisciplinary team and initiate plans and interventions as needed 3. Oxygen therapy as indicated 4. Position patient for maximum ventilatory efficiency 5. Instruct patient to turn, cough, and deep breathe; encourage incentive spirometer if indicated 6. Plan activities to conserve energy 7. Encourage ambulation/activity per patient's tolerance 8. Collaborate with patient/RT to administer medications/treatments 9. Monitor lab/diagnostic results Outcome: Progressing Note: Evaluation of progress towards goal: Pt frequently requiring bipap * Plan of Care - Lila Choudhary RCP - 02/09/2025 5:27 AM EDT Problem: Inadequate Breathing Pattern Goal: Patient will maintain effective ventilation Description: Patient's goal is: INTERVENTIONS 1. Assess and monitor vital signs, respiratory status (to include respiratory rate, depth, effort, and breath sounds), oxygen saturation, oral mucosa, tongue, pain, and labs (ABGs). 2. Collaborate with interdisciplinary team and initiate plans and interventions as needed 3. Oxygen therapy as indicated 4. Position patient for maximum ventilatory efficiency 5. Instruct patient to turn, cough, and deep breathe; encourage incentive spirometer if indicated 6. Plan activities to conserve energy 7. Encourage ambulation/activity per patient's tolerance 8. Collaborate with patient/RT to administer medications/treatments 9. Monitor lab/diagnostic results Outcome: Progressing Note: Evaluation of progress towards goal: reviewed and continued Respiratory Therapy Clinical Practice Guidelines Consult Clinical Practice Guidelines Ordered Consult Assessment: Consult, NIV CPAP, Bronchodilator Bronchodilator Indications: Bronchospasm/wheezing Bronchodilator Total: 2 Vital Signs BP: 154/64 Pulse: 64 Heart Rate Source: Monitor Resp: 17 SpO2: 99 % O2 Device: Bi-PAP O2 Flow Rate (L/min): 4 L/min FiO2 (%): 40 % Respiratory Assessment Assessment Type: Post-treatment Level of Consciousness: Alert Respiratory Pattern: Regular, Dyspnea with exertion Chest Assessment: Chest expansion symmetrical Bilateral Breath Sounds: Diminished Readings Vt (observed, mL): 408 mL Minute Ventilation (L/min): 5.6 L/min PIP Observed (cm H2O): 12 cm H2O Total Rate : 14 Leakage: 17 Patient Active Problem List Diagnosis manager terminal (current) use of anticoagulants Typical atrial flutter (CMS-HCC) Primary hypertension Seasonal allergies Pulmonary nodule less than 6 mm determined by computed tomography of lung Anxiety COPD, severe ([facility]) Chronic respiratory failure with hypoxia and hypercapnia ([facility]) WILIAN treated with BiPAP Mixed hyperlipidemia NSTEMI (non-ST elevated myocardial infarction) ([facility]) Myoclonus Acute on chronic respiratory failure ([facility]) Last Chest XRAY: Reviewed Pulmonary History: COPD RT Reassessment Due In: 12 hours Bronchodilator Respiratory Rate Level 2: Less than 20 Dyspnea Level 2: Periodic SOB Breath Sounds Level 2: Diminished and/or faint wheezes Respiratory History Level 3: Suspected pulmonary disease such as: Asthma/reactive airway disease ; Bronchitis/Emphysema (COPD) ; Cystic Fibrosis ; Severe Laryngitis/Tracheitis/Bronchiectasis ; Microbial infection ; Anesthesia related bronchospasms AND/ OR Positive risk factors including but not limited to: History of smoking ; History of pulmonary complications ; Smoke inhalation, physical/chemical trauma to the lung or upper airway Oxygen to Keep SpO2 Greater Than Or Equal To 92% Level 2: 1-3 LPM 25%-35% or NIV 41 - 50% Peak Flow ([facility] Only) Home Therapy: Not Applicable Patients Current Level & Intervention: 2 Three times daily and Q4 PRN for wheezing * Plan of Care - Elisa De Anda RN - 02/08/2025 7:15 PM EDT Problem: Pain Goal: Patient goal is pain score less than 4, able to rest, and participant in treatment plan as appropriate Description: INTERVENTIONS: 1. Encourage patient or legal solar manufacturer's representative to report early pain and ask for pain medicine when needed 2. Assess pain using appropriate pain scale and include the scale used when documenting 3. Administer analgesics based on type and severity of pain and evaluate response within appropriate time frame 4. Implement non-pharmacological measures as appropriate and evaluate response 5. Consider cultural and social influences on pain and pain management 6. Notify LIP if interventions ineffective or patient reports new pain 7. Monitor vital signs including pulse ox, end-tidal CO2 based on pain intervention 8. Reassess pain per policy 9. Teach patient or legal solar manufacturer's representative interventions for comforting Outcome: Progressing Note: Evaluation of progress towards goal: Pain assessed per unit protocol and prn using appropriate scale. Pain medications given per order. Problem: Safety Goal: Patient will be injury free during hospitalization Description: INTERVENTIONS: 1. Assess patient's risk for falls and implement fall prevention plan of care per policy 2. Provide and maintain a safe environment 3. Proper use of double Identifiers 4. Medication administration using the 5 rights 5. Hand hygiene 6. Specimens are labeled at the bedside 7. Instruct patient/ patient solar manufacturer's representative about use of safety devices 8. Include patient/ patient solar manufacturer's representative in decisions related to safety Outcome: Progressing Note: Evaluation of progress towards goal: pt free from falls and injury, safe environment maintained. Hourly rounding performed. Problem: Infection Goal: Absence of infection during hospitalization Description: INTERVENTIONS 1. Assess and monitor for signs and symptoms of infection. 2. Monitor lab/diagnostic results. 3. Monitor all insertion sites i.e., indwelling lines, tubes and drains. 4. Monitor endotracheal (as able) and nasal secretions for changes in amount and color. 5. Administer medications as ordered. 6. Instruct and encourage patient and family to use good hand hygiene technique. 7. Identify and instruct patient/patient solar manufacturer's representative in use of appropriate isolation precautionsfor identified infection/symptoms. 8. Provide and discuss with patient/patient solar manufacturer's representative on educational MDRO sheet. 9. Encourage and monitor nutritional status daily and consult army ranger if indicated. 10. Implement neutropenic guidelines as needed. Outcome: Progressing Note: Evaluation of progress towards goal: VSS. WBC noted. Lab results monitored. Antibiotics givenas ordered. Problem: Knowledge Deficit Goal: Patient/patient solar manufacturer's representative demonstrates understanding of disease process, treatment plan,medications, and discharge instructions Description: INTERVENTIONS 1. Complete learning assessment and assess knowledge base 2. Provide teaching at level of understanding 3. Provide teaching via preferred learning method(s) Outcome: Progressing Note: Evaluation of progress towards goal: Patient educated at bedside about plan of care, agreeable. Asks appropriate questions, denies needs at this time. Problem: Discharge Planning Goal: Discharge to post-acute care, other facility, or home with appropriate resources Description: Patient's goal is: INTERVENTIONS 1. Conduct assessment to determine patient/family and health care team treatment goals, and need for post-acute services based on payer coverage, community resources, and patient preferences, and barriers to discharge 2. Coordinate with Social work, Care Navigation, and Utilization Review to arrange appropriate level of services according to patient's needs based on patient preference and payer coverage in collaboration with the physician and health care team 3. Address psychosocial, clinical, and financial barriers to discharge as identified in assessment in conjunction with the patient/family and health care team 4. Consult appropriate ancillary services (i.e.. PT/OT/ST, etc) as needed 5. Communicate with and update the patient/family, physician, and health care team regarding progress on the discharge plan 6. Identify discharge learning needs (meds, wound care, etc). 7. Arrange for needed discharge transportation as appropriate Outcome: Progressing Note: Evaluation of progress towards goal: Not appropriate for DC. Problem: Moderate - High Risk Fall Score Description: Castillo Fall Score of =/> 25 or indicated by [facility] Assessment Goal: Patient should be free from fall Description: Interventions: 1. Lund to environment 2. Hourly rounds addressing the 4 P's (Pain, Positioning, Possessions, Potty) 3. Clear area of hazards (spills, clutter, electrical cords, unnecessary equipment) 4. Place equipment (bed & TV controls, call light, phone, urinal) within reach 5. Encourage patient to wear glasses and hearing aides as appropriate 6. Maintain bed in lowest position 7. Lock wheels on bed/wheelchair 8. Provide adequate lighting, including night light 9. Assess need for additional bedding, food/fluids, pain med's prior to sleep/routinely 10. Provide gripper slippers or personal non-skid footwear 11. Teach patient and patient solar manufacturer's representative to maintain environment for safety and engage in all aspects of fall prevention program 12. Remind patient to call for help before getting out of bed 13. Initiate bed/chair/exit alarms supportive devices as appropriate, (chair wedge, no-skid floor mat, raised edge mattress, hip protectors) 14. Locate patient bed assignment for optimal visualization 15. Evaluate and identify Safe Patient Handling Equipment needs 16. Provide supervision when out of bed or chair 17. Utilize gait belt as needed to assist with ambulation 18. Place adaptive equipment (cane, walker) within reach 19. Request patient solar manufacturer's representative bring adaptive equipment/mobility aids from home or obtain and provide as needed 20. Consult pharmacy regarding effects of med's affecting mobility, cognition, and alternatives 21. Obtain physician order for PT if risk factors associated with mobility are present 22. Obtain physician order for OT as appropriate 23. Utilize diversional activities 24. Educate patient and patient solar manufacturer's representative how to maintain a safe environment during visitationtimes (notify nurse prior to leaving bedside) 25. Consider appropriateness of medical or non-medical office asst 26. Set up voiding schedule as appropriate (every 2 hours) Outcome: Progressing Note: Evaluation of progress towards goal: Patient remains free from fall, bed in lowest position, bed wheels locked, call light in reach, hourly rounding performed. Problem: Potential for Compromised Skin Integrity Goal: Skin integrity is maintained or improved Description: Patient's goal is: INTERVENTIONS 1. Perform initial skin assessment on admission and as needed 2. Turn patient every 2 hours and PRN 3. Relieve pressure to bony prominences 4. Avoid shearing 5. Keep skin clean and dry 6. Alternate a full bath with partial baths for elderly 7. Apply lotion/moisturizer on skin 8. Monitor patient's hygiene practices 9. Float heels 10. Collaborate with interdisciplinary team and initiate plans and interventions as needed Outcome: Progressing Note: Evaluation of progress towards goal: No new signs of skin breakdown. Turning performed every 2 hours and PRN. Skin care performed. Goal: Patient's nutritional intake is adequate Description: Patient's goal is: INTERVENTIONS 1. Assess and monitor food intake and supplements, patient food preferences, nausea, vomiting, labs, oral cavity (gums, teeth, tongue, mucosa), proper denture fit, and cultural beliefs 2. Monitor for signs of hypoglycemia and hyperglycemia 3. Collaborate with interdisciplinary team and initiate plan and interventions as ordered 4. Monitor patient's weight 5. Assist patient with meals/food selection 6. Assist patient with eating 7. Allow adequate time for meals 8. Provide pleasant environment during mealtime 9. Increase social contact during mealtimes 10. Plan activities to conserve energy 11. Encourage/perform oral hygiene as appropriate 12. Encourage patient to take dietary supplement as ordered 13. Collaborate with clinical army ranger 14. Include patient/ patient's solar manufacturer's representative in decisions related to nutrition Outcome: Progressing Note: Evaluation of progress towards goal: Regular diet w/ L2 thickened liquids. Problem: Urinary Incontinence Goal: Perineal skin integrity is maintained or improved Description: INTERVENTIONS 1. Assess genitourinary system, perineal skin, labs (urinalysis), and history of incontinence to include past management, aggravating, and alleviating factors 2. Keep skin clean and dry 3. Apply skin protectant 4. Develop skin care regimen 5. Provide privacy when changing patients incontinence device to maintain their dignity 6. Consider placing an indwelling catheter 7. Collaborate with interdisciplinary team and initiate plans and interventions as needed Outcome: Progressing Note: Evaluation of progress towards goal: Burr catheter in place. Burr and perineal care performed. Linen changed PRN. Problem: Inadequate Breathing Pattern Goal: Patient will maintain effective ventilation Description: Patient's goal is: INTERVENTIONS 1. Assess and monitor vital signs, respiratory status (to include respiratory rate, depth, effort, and breath sounds), oxygen saturation, oral mucosa, tongue, pain, and labs (ABGs). 2. Collaborate with interdisciplinary team and initiate plans and interventions as needed 3. Oxygen therapy as indicated 4. Position patient for maximum ventilatory efficiency 5. Instruct patient to turn, cough, and deep breathe; encourage incentive spirometer if indicated 6. Plan activities to conserve energy 7. Encourage ambulation/activity per patient's tolerance 8. Collaborate with patient/RT to administer medications/treatments 9. Monitor lab/diagnostic results Outcome: Progressing Note: Evaluation of progress towards goal: Stable and monitored. * PT/OT/TRAINING DESIGNER - Linh Munoz, PT - 02/08/2025 3:42 PM EDT Physical Therapy Evaluation Discharge Recommendations for Safe Patient Transition Post Acute Moderate Rehab Needs: Recommend moderate intensity rehab, Tolerate 1- 2 hrs of therapy 3-5 days/wk, Subacute or chronic functional impairment Current Impairments Informing Therapy Recommendation: Ambulation status/safety, Fall risk, ADL status, Endurance level, Caregiver needs/level of support Bench Assembly Inspector Support for-: Mobility Deficits, ADL Deficits 6 Clicks: Basic Mobility Turning from your back to your side while in a flat bed without using bed rails?: A little Moving from lying on your back to sitting on side of flat bed without using bed rails?: A little Moving to and from bed to a chair (including w/c)?: A lot Standing up from a chair using your arms (e.g. w/c or bedside chair)?: A little To walk in hospital room?: Total Climbing 3-5 steps with a railing?: Total Scoring 6 Clicks: Basic Mobility Raw Score: 13 CMS G Code Modifier: CK Therapy Plan Need for skilled Physical Therapy to address deficits in functional mobility due to a status decline resulting from acute on chronic respiratory failure. Pt is a 64 yr old female recently admitted 01/14/25-01/30/25 for NSTEMI and discharged to SNF. PMH of chronic chronic hypercarbic respiratory failure secondary to COPD on 3L O2 (baseline CO2: 60), WILIAN, and paroxysmal A-Fib on Warfarin s/p prior DCCV, CTI RFA ablation with dual-chamber pacemaker placement on previous admission. Pt was found unresponsive at SNF. Intubated and sedated upon arrival. Dx: acute encephalopathy, acute on chronic hypoxic respiratory failure, HAP, AFib/flutter with RVR,COPD, normocytic anemia. H/o severe anxiety. 02/07: required 1u PRBC. Concern for endocarditis. Palliative consulted. Past Medical History: Diagnosis Date Acute respiratory failure ([facility]) 09/02/2022 ARF (acute respiratory failure) ([facility]) 09/02/2022 Chronic pain Emphysema ([facility]) Hypertension Sleep apnea Past Surgical History: Procedure Laterality Date CENTRAL LINE 01/25/2025 EP - Ablation. flutter carto N/A 06/19/2022 Performed by Ivonne Manzanares MD at [facility] (EP) EP Invasive Oliveros single-chamber pacemaker/AV node ablation N/A 01/28/2025 Performed by Ivonne Manzanares MD at [facility] (EP) PT Treatment/Interventions: Functional transfer training, UE strengthening/ROM, LE strengthening/ROM, Endurance training, Equipment eval/education, Balance, Bed mobility, Gait training, Functional activities PT Frequency: 5-6days/week PT Duration: LOS Assessment Patient Assessment Therapy Problem List: Decreased ADL status, Decreased balance, Decreased endurance, Decreased mobility, Decreased UE strength, Decreased LE strength Patient Response to Treatment: Tolerated evaluation without adverse reaction Mood/Affect: Anxious Rehab Prognosis: Good, With continued PT status post acute discharge Visit RN Communication: Yes Medical Record Reviewed: Yes PT Type of Visit: Evaluation Precautions Activity: early mobility pass - OK to see per RN Equipment: gait belt, Patti Stedy, O2, Burr Pacemaker/ICD: Pacemaker Telemetry/Supervisor Multifocal Lens: Yes Oxygen Used: 4L via NC Other: Fall risk, high anxiety (medicate prior to therapy session) Pain Assessment Pain Assessment: 0-10 Pain Score: 7 Observed Behavior: Resting Pain Location: Head, Back Pain Intervention(s): Repositioned, Ambulation/increased activity, Distraction, Emotional support Response to Interventions: Pain unchanged, Quiet Pain 2 Observed Behavior: Resting Home Living Type of Home: House Home Layout: Two level, Able to live on main level with bedroom/bathroom Stairs to Enter: 2 Hand Rails: Bilateral (unable to reach both sides at same time) Stairs in Home: Pt stays on main level Bathroom Shower/Tub: Walk-in shower Bathroom Toilet: Standard Bathroom Equipment: Grab bars in shower, Shower chair, Hand-held shower Home Equipment: Rolling walker, 4 Wheeled walker, Cane, Wheelchair-manual, Home oxygen (3-5L Home O2) Prior Function Lives With: Spouse, Family (18 yr old granddaughter) Receives Help From: Family Level of Mobility: Independent with ADLs and functional transfers or gait (Prior to initial hospitalization on 01/14 pt was mod I with furniture/cane/RW/4WW depending on how she felt that day. Used RWin home and 4WW in community for access to seat.) Homemaking Assistance: Needs assistance Other: Pt reports that performed most housekeeping tasks but that she was able to perform some tasks depending on the day . Pt did minimal driving. Denies recent falls. Other: Pt was discharged to SNF on 01/30 and reqadmitted on 02/04. Pt states that she did not really have an opportunity to do any PT or get out of bed. Pt not likley out of bed for approx 2 weeks. ADL / IADL Hand Dominance: Right Hearing / Speech / Vision Hearing: Within Functional Limits Speech: Within Functional Limits Current Vision: Wears glasses all the time Cognition Overall Cognitive Status: Exceptions to Within Functional Limits Arousal/Alertness: Appropriate responses to stimuli Attention Span: Attends with cues to redirect Memory: Appears intact Orientation Level: Oriented X4 Following Commands: Follows one step commands with increased time, Follows one step commands with repetition Awareness of Errors: Decreased awareness of errors, Assistance required to identify errors made, Assistance required to correct errors made Problem Solving: Reduced Interfering Components: Attention - sustained, Attention to detail, Processing speed Other: Pt very anxious with tremors at rest. Requesting anxiety medication prior to getting up to chair. Required extended time to be ready to transfer to chair with Patti Stedy once seated EOB. Sensation Overall Sensation Status: Consistent with premorbid status (Numbness bilat feet and to a lesser extent hands) Bed Mobility Supine to Sit: Min assist (HOB partially elevated with min A for safety. Pt performed most of activity without assistance. C/o mild lightheadedness upon sitting that improved with time. Tremors notedthroughout session not dependent on position.) Sit to Supine: (Not assessed. Pt up in chair at end of session with call light and needs in reach. RN updated.) Transfers Sit to Stand: Min assist Stand to Sit: Min assist Other: Assist with left hand placment on Patti Stedy d/t decreased shoulder mobility. VC's to maintain hand placement. Min A provided for safety d/t generalized weakness, tremors and anxiety. Gait Other: Not assessed this date d/t safety concerns. Pt has not been OOB for approx 2 weeks. Balance Sitting Balance: Static: Good (-) Sitting Balance: Dynamic: Fair Standing Balance: Static: Fair Other: Standing balance in Patti Stedy with BUE support. Pt sat EOB ~ 10 min in preparation for use of Patti Stedy. Pt very anxious and requring extra time to be ready to stand. RUE Assessment: (see OT eval) LUE Assessment: (see OT eval) RLE Assessment: (grossly 4-/5) LLE Assessment: (grossly 4-/5) Activity Tolerance Endurance: Tolerates <30 minutes activity WITHOUT vital sign changes Other: Pt on 4L O2 sith SpO2 in low to mid 90's throughout session. Actity limited by high level ofanxiety, generalized weakness and decreased endurance. Plan Physical Therapy Care Plan Physical Therapy Care Plan (Active) Template: PT - Physical Therapy Problem: Activity Tolerance Dates: Start: 02/08/25 Disciplines: PT Goal: Tolerate > 30 minutes of activity WITH rest breaks Dates: Start: 02/08/25 Expected End: 03/01/25 Description: Patient to perform functional range/strengthening exercises to improve functional strength and endurance for improved independence and safe mobility. Disciplines: PT Problem: Bed Mobility Dates: Start: 02/08/25 Disciplines: PT Goal: Patient will perform bed mobility with Stand By Assist Dates: Start: 02/08/25 Expected End: 03/01/25 Description: Pt will perform supine<>sit demonstrating safe technique. Disciplines: PT Problem: Gait Dates: Start: 02/08/25 Disciplines: PT Goal: Patient will perform gait with Minimum Assist Dates: Start: 02/08/25 Expected End: 03/01/25 Description: Patient will ambulate 30 ft with RW demonstrating safe gait pattern. Disciplines: PT Problem: Standing Balance Dates: Start: 02/08/25 Disciplines: PT Goal: Improve balance to fair Dates: Start: 02/08/25 Expected End: 03/01/25 Description: Pt will demonstrate Fair+ balance with RW during transfers and ambulation to decrease fall risk. Disciplines: PT Problem: Transfers Dates: Start: 02/08/25 Disciplines: PT Goal: Patient will perform transfers with Contact Guard Dates: Start: 02/08/25 Expected End: 03/01/25 Description: Pt will perform sit<>stand transfers with RW consistently demonstrating safe technique. Disciplines: PT Physical Therapy Care Plan (Resolved) There are no resolved problems. Principal Problem: Acute on chronic respiratory failure ([facility]) * PT/OT/TRAINING DESIGNER - Lisa Hernandez OT/L - 02/08/2025 2:25 PM EDT Occupational Therapy Evaluation Discharge Recommendations for Safe Patient Transition Post Acute Moderate Rehab Needs: Recommend moderate intensity rehab, Tolerate 1- 2 hrs of therapy 3-5 days/wk, Subacute or chronic functional impairment Current Impairments Informing Therapy Recommendation: Ambulation status/safety, Cognition, Fall risk, ADL status, Swallowing, Endurance level, Caregiver needs/level of support (High anxiety) Bench Assembly Inspector Support for-: Mobility Deficits, ADL Deficits 6 Clicks: Daily Activity Putting on and taking off regular lower body clothing?: Total Bathing (including washing, rinsing, drying)?: A lot Toileting, which includes using toilet, bedpan or urinal?: Total (Burr) Putting on and taking off regular upper body clothing?: A lot Taking care of personal grooming such as brushing teeth?: A little Eating meals?: None Scoring Daily Activity Raw Score: 13 CMS G Code Modifier: CL Therapy Plan Need for skilled Occupational Therapy to address deficits in ADL independence and functional mobility due to a status decline resulting from acute on chronic respiratory failure. Pt is a 64 yr old female recently admitted 01/14/25-01/30/25 for NSTEMI and discharged to SNF. PMH of chronic chronic hypercarbic respiratory failure secondary to COPD on 3L O2 (baseline CO2: 60), WILIAN, and paroxysmal A-Fib on Warfarin s/p prior DCCV, CTI RFA ablation with dual-chamber pacemaker placement on previous admission. Pt was found unresponsive at SNF. Intubated and sedated upon arrival. Dx: acute encephalopathy, acute on chronic hypoxic respiratory failure, HAP, AFib/flutter with RVR,COPD, normocytic anemia. h/o severe anxiety. 02/07 Pt required 1u PRBC; concern for endocarditis. Palliative consulted. Past Medical History: Diagnosis Date Acute respiratory failure ([facility]) 09/02/2022 ARF (acute respiratory failure) ([facility]) 09/02/2022 Chronic pain Emphysema ([facility]) Hypertension Sleep apnea Past Surgical History: Procedure Laterality Date CENTRAL LINE 01/25/2025 EP - Ablation. flutter carto N/A 06/19/2022 Performed by Ivonne Manzanares MD at [facility] (EP) EP Invasive Oliveros single-chamber pacemaker/AV node ablation N/A 01/28/2025 Performed by Ivonne Manzanares MD at [facility] (EP) OT Treatment/Interventions: ADL retraining, Functional transfer training, UE strengthening/ROM, Endurance training, Patient/family training, Cognitive reorientation, Equipment eval/education, Balance, Bed mobility, Compensatory technique education, Functional activities OT Frequency: 5-6days/week OT Duration: LOS Assessment Patient Assessment Therapy Problem List: Decreased ADL status, Decreased balance, Decreased endurance, Decreased mobility, Decreased UE strength, Decreased LE strength, Decreased high-level ADLs, Decreased safe judgement during ADL, Decreased self- care trans, Decreased sensation, Decreased UE ROM Patient Response to Treatment: Tolerated evaluation without adverse reaction Mood/Affect: Anxious Rehab Prognosis: Good, With continued OT status post acute discharge Visit RN Communication: Yes Medical Record Reviewed: Yes OT Type of Visit: Evaluation Precautions Activity: Early mobility: pass; okay to see per RN Equipment: Gait belt, Patti Stedy, O2, Burr Pacemaker/ICD: Pacemaker Telemetry/Supervisor Multifocal Lens: Yes Oxygen Used: 4L O2/NC Other: Fall risk, high anxiety (medicate prior to therapy session), level 2 mildly thick liquids, UE tremors, LUE edema Pain Assessment Pain Assessment: 0-10 Pain Score: 7 Pain Location: Head, Back Pain Intervention(s): Repositioned, Ambulation/increased activity Response to Interventions: Pain unchanged Home Living Type of Home: House Home Layout: Two level, Able to live on main level with bedroom/bathroom Stairs to Enter: 2 Hand Rails: Bilateral (Wide) Stairs in Home: Pt able to stay on main level. Bathroom Shower/Tub: Walk-in shower Bathroom Toilet: Standard Bathroom Equipment: Grab bars in shower, Shower chair, Hand-held shower Home Equipment: Rolling walker, 4 Wheeled walker, Cane, Wheelchair-manual, Home oxygen (3-5L home O2) Other : Prior to recent hospitalization, pt was using RW/4WW for mobility. Pt denies any recent falls. Prior Function Lives With: Spouse, Family (18 yr old granddaughter) Receives Help From: Family Level of Mobility: Independent with ADLs and functional transfers or gait (Prior to initial hospitalization on 01/14/25, pt was Mod I with mobility using furniture/cane/RW/4WW, depending on how she felt that day. Used RW in home and 4WW in community for access to seat. Increased time with BADL tasks.) Homemaking Assistance: Needs assistance Other: manages majority of IADLs; pt would participate in light household tasks depending of how she was feeling. Minimal driving. Other: Pt was discharged to SNF 01/30/25 up until this admission on 02/04; pt reports due to short stay, she did not have the opportunity to do much therapy at SNF. ADL / IADL Hand Dominance: Right Where Assessed: Edge of bed, Chair Eating Assistance: Setup (Mildly thick liquids) Grooming Assistance: Min assist (Seated.) Bathing/Showering Assistance: Max assist Toilet/Commode Assistance: Total assist (Burr) UE Dressing Assistance: Max assist LE Dressing Assistance: Total assist Footwear Assistance: Total assist Footwear Deficit: R sock, L sock Other: Pt participated in grooming/oral care while seated EOB and in chair with increased time and frequent rest breaks; SBA to Min A provided for incidental help as needed. Significant assist required with BADL at this time due to decreased strength/balance/activity tolerance. Home Management - IADL Other: Pt participated in grooming/oral care while seated EOB and in chair with increased time and frequent rest breaks; SBA to Min A provided for incidental help as needed. Significant assist required with BADL at this time due to decreased strength/balance/activity tolerance. Hearing / Speech / Vision Hearing: Within Functional Limits Speech: Within Functional Limits Current Vision: Wears glasses all the time Cognition Overall Cognitive Status: Exceptions to Within Functional Limits Arousal/Alertness: Appropriate responses to stimuli Attention Span: Attends with cues to redirect Memory: Appears intact Orientation Level: Oriented X4 Following Commands: Follows one step commands with increased time, Follows one step commands with repetition Safety Judgment: Decreased awareness of need for safety Awareness of Errors: Decreased awareness of errors, Assistance required to identify errors made, Assistance required to correct errors made Insight of Deficits: Decreased awareness of deficits Problem Solving: Reduced Interfering Components: Attention - sustained, Attention to detail, Processing speed Other: Pt very anxious throughout session; pt requesting anxiety medication prior to getting up to chair. Pt requiring significant time and rest breaks thorughout activity, including time to get self ready for transfer. Sensation Overall Sensation Status: Consistent with premorbid status (Numbness bilateral feet and mild in hands.) Bed Mobility Supine to Sit: Min assist Sit to Supine: (NT; pt up in chair at end of session with call light in place and needs met. RN updated.) Other: HOB slightly elevated; use of bedrail as needed. Min A required for incidental help; pt ableto do majority of task herself. Pt reporting slight dizziness upon sitting. Transfers Sit to Stand: Min assist Stand to Sit: Min assist Bed to Chair: Total assist (Patti Stedy) Other: Verbal/visual/tactile cues for left hand and bilateral foot placement on Patti Stedy; some assist to slide hips forward toward EOB. Min A to stand for safety and stability due to weakness, tremors and overall anxiety. Gait Other: NT due to safety concerns this date; increased weakness/anxiety. Balance Balance Evaluation: Exceptions to Functional Limits Sitting Balance: Static: Good (-) Sitting Balance: Dynamic: Fair Standing Balance: Static: Fair Other: BUE support on Patti Dillondy during stance. Tolerated sitting EOB with SBA x approx 10 min to prepare and be ready for transfer. RUE Assessment: Exceptions to WFL RUE Strength RUE Overall Strength: (Generalized weakness and mild edema throughout; AROM grossly WFL. Tremors noted.) LUE Assessment: Exceptions to WFL LUE Strength LUE Overall Strength: Due to pain (Generalized weakness and moderate edema throughout; tremors noted. AAROM to reach full range.) RLE Assessment: (grossly 4-/5) LLE Assessment: (grossly 4-/5) Activity Tolerance Endurance: Tolerates <30 minutes activity WITHOUT vital sign changes Other: Pt on 4L O2/NC throughout session with SpO2 in 90s. Activity limited by high anxiety, weakness and fatigue. Plan Occupational Therapy Care Plan Occupational Therapy Care Plan (Active) Template: OT - Occupational Therapy Problem: Activity Tolerance Dates: Start: 02/08/25 Disciplines: OT Goal: Tolerate > 30 minutes of activity WITH rest breaks Dates: Start: 02/08/25 Expected End: 03/01/25 Description: Goal Description: Disciplines: OT Problem: Bed Mobility Dates: Start: 02/08/25 Disciplines: OT Goal: Patient will perform bed mobility with Stand By Assist Dates: Start: 02/08/25 Expected End: 03/01/25 Description: Goal Description: Disciplines: OT Problem: Functional Mobility Dates: Start: 02/08/25 Disciplines: OT Goal: Patient will perform functional mobility with Contact Guard Dates: Start: 02/08/25 Expected End: 03/01/25 Description: Goal Description: Disciplines: OT Problem: Other (Customize) Dates: Start: 02/08/25 Disciplines: OT Goal: Improve Dates: Start: 02/08/25 Expected End: 03/01/25 Description: Pt will participate in BADL routine at SBA level, using AD, AE and/or compensatory strategies as needed. Disciplines: OT Problem: Sitting Balance Dates: Start: 02/08/25 Disciplines: OT Goal: Improve balance to good Dates: Start: 02/08/25 Expected End: 03/01/25 Description: Static Dynamic Disciplines: OT Problem: Standing Balance Dates: Start: 02/08/25 Disciplines: OT Goal: Improve balance to good Dates: Start: 02/08/25 Expected End: 03/01/25 Description: Static Dynamic Disciplines: OT Problem: Strength Dates: Start: 02/08/25 Disciplines: OT Goal: Improve strength Dates: Start: 02/08/25 Expected End: 03/01/25 Description: Of extremity/ location: BUE AROM/strengthening in all available planes x 15 reps To facilitate: increased overall strength and activity tolerance for ADL/mobility Disciplines: OT Problem: Toilet Transfers Dates: Start: 02/08/25 Disciplines: OT Goal: Patient will perform toilet transfers with Stand By Assist Dates: Start: 02/08/25 Expected End: 03/01/25 Description: Goal Description: Disciplines: OT Problem: Transfers Dates: Start: 02/08/25 Disciplines: OT Goal: Patient will perform transfers with Stand By Assist Dates: Start: 02/08/25 Expected End: 03/01/25 Description: Goal Description: Disciplines: OT Occupational Therapy Care Plan (Resolved) There are no resolved problems. Principal Problem: Acute on chronic respiratory failure ([facility]) * Plan of Care - Ric Stokes RCP - 02/08/2025 11:44 AM EDT Problem: Inadequate Breathing Pattern Goal: Patient will maintain effective ventilation Description: Patient's goal is: INTERVENTIONS 1. Assess and monitor vital signs, respiratory status (to include respiratory rate, depth, effort, and breath sounds), oxygen saturation, oral mucosa, tongue, pain, and labs (ABGs). 2. Collaborate with interdisciplinary team and initiate plans and interventions as needed 3. Oxygen therapy as indicated 4. Position patient for maximum ventilatory efficiency 5. Instruct patient to turn, cough, and deep breathe; encourage incentive spirometer if indicated 6. Plan activities to conserve energy 7. Encourage ambulation/activity per patient's tolerance 8. Collaborate with patient/RT to administer medications/treatments 9. Monitor lab/diagnostic results Note: Respiratory Therapy Clinical Practice Guidelines Consult Clinical Practice Guidelines Ordered Consult Assessment: Consult, NIV CPAP, Bronchodilator Bronchodilator Indications: Bronchospasm/wheezing Bronchodilator Total: 2 Vital Signs O2 Device: Nasal cannula O2 Flow Rate (L/min): 4 L/min Respiratory Assessment Assessment Type: Post-treatment Level of Consciousness: Alert Respiratory Pattern: Regular Chest Assessment: Chest expansion symmetrical Bilateral Breath Sounds: Diminished Patient Active Problem List Diagnosis senior living (current) use of anticoagulants Typical atrial flutter ([facility] [facility]) Primary hypertension Seasonal allergies Pulmonary nodule less than 6 mm determined by computed tomography of lung Anxiety COPD, severe ([facility]) Chronic respiratory failure with hypoxia and hypercapnia ([facility]) WILIAN treated with BiPAP Mixed hyperlipidemia NSTEMI (non-ST elevated myocardial infarction) ([facility]) Myoclonus Acute on chronic respiratory failure ([facility] Last Chest XRAY: Reviewed Pulmonary History: reviewed RT Reassessment Due In: 12 hours Bronchodilator Respiratory Rate Home Therapy: Patient baseline Dyspnea Home Therapy: Patient Baseline Breath Sounds Home Therapy: Patient Baseline Respiratory History Home Therapy: Requires home therapy Oxygen to Keep SpO2 Greater Than Or Equal To 92% Home Therapy: Patient Baseline Peak Flow ([facility] Only) Home Therapy: Not Applicable Patients Current Level & Intervention: Home Therapy As at home, reconcile orders with home medsif pulmonary status is stable * Plan of Care - Kendall June RN - 02/08/2025 10:59 AM EDT Problem: Pain Goal: Patient goal is pain score less than 4, able to rest, and participant in treatment plan as appropriate Description: INTERVENTIONS: 1. Encourage patient or legal solar manufacturer's representative to report early pain and ask for pain medicine when needed 2. Assess pain using appropriate pain scale and include the scale used when documenting 3. Administer analgesics based on type and severity of pain and evaluate response within appropriate time frame 4. Implement non-pharmacological measures as appropriate and evaluate response 5. Consider cultural and social influences on pain and pain management 6. Notify LIP if interventions ineffective or patient reports new pain 7. Monitor vital signs including pulse ox, end-tidal CO2 based on pain intervention 8. Reassess pain per policy 9. Teach patient or legal solar manufacturer's representative interventions for comforting Outcome: Progressing Note: Evaluation of progress towards goal: Patient resting comfortably at this time, VSS, tylenol on board for PRN pain management. Plan of care ongoing. Problem: Safety Goal: Patient will be injury free during hospitalization Description: INTERVENTIONS: 1. Assess patient's risk for falls and implement fall prevention plan of care per policy 2. Provide and maintain a safe environment 3. Proper use of double Identifiers 4. Medication administration using the 5 rights 5. Hand hygiene 6. Specimens are labeled at the bedside 7. Instruct patient/ patient solar manufacturer's representative about use of safety devices 8. Include patient/ patient solar manufacturer's representative in decisions related to safety Outcome: Progressing Note: Evaluation of progress towards goal: Pt free from falls and injury, safe environment maintained. Problem: Infection Goal: Absence of infection during hospitalization Description: INTERVENTIONS 1. Assess and monitor for signs and symptoms of infection. 2. Monitor lab/diagnostic results. 3. Monitor all insertion sites i.e., indwelling lines, tubes and drains. 4. Monitor endotracheal (as able) and nasal secretions for changes in amount and color. 5. Administer medications as ordered. 6. Instruct and encourage patient and family to use good hand hygiene technique. 7. Identify and instruct patient/patient solar manufacturer's representative in use of appropriate isolation precautionsfor identified infection/symptoms. 8. Provide and discuss with patient/patient solar manufacturer's representative on educational MDRO sheet. 9. Encourage and monitor nutritional status daily and consult army ranger if indicated. 10. Implement neutropenic guidelines as needed. Outcome: Progressing Note: Evaluation of progress towards goal: Pt is afebrile at this time. CBC being monitored Problem: Knowledge Deficit Goal: Patient/patient solar manufacturer's representative demonstrates understanding of disease process, treatment plan,medications, and discharge instructions Description: INTERVENTIONS 1. Complete learning assessment and assess knowledge base 2. Provide teaching at level of understanding 3. Provide teaching via preferred learning method(s) Outcome: Progressing Note: Evaluation of progress towards goal: Pt educated on treatment plan. All meds discussed prior to administration. Problem: Discharge Planning Goal: Discharge to post-acute care, other facility, or home with appropriate resources Description: Patient's goal is: INTERVENTIONS 1. Conduct assessment to determine patient/family and health care team treatment goals, and need for post-acute services based on payer coverage, community resources, and patient preferences, and barriers to discharge 2. Coordinate with Social work, Care Navigation, and Utilization Review to arrange appropriate level of services according to patient's needs based on patient preference and payer coverage in collaboration with the physician and health care team 3. Address psychosocial, clinical, and financial barriers to discharge as identified in assessment in conjunction with the patient/family and health care team 4. Consult appropriate ancillary services (i.e.. PT/OT/ST, etc) as needed 5. Communicate with and update the patient/family, physician, and health care team regarding progress on the discharge plan 6. Identify discharge learning needs (meds, wound care, etc). 7. Arrange for needed discharge transportation as appropriate Outcome: Progressing Note: Evaluation of progress towards goal: Patient currently in AICU, will continue to communicate with health care team regarding discharge plans Problem: Moderate - High Risk Fall Score Description: Castillo Fall Score of =/> 25 or indicated by [facility] Assessment Goal: Patient should be free from fall Description: Interventions: 1. Lund to environment 2. Hourly rounds addressing the 4 P's (Pain, Positioning, Possessions, Potty) 3. Clear area of hazards (spills, clutter, electrical cords, unnecessary equipment) 4. Place equipment (bed & TV controls, call light, phone, urinal) within reach 5. Encourage patient to wear glasses and hearing aides as appropriate 6. Maintain bed in lowest position 7. Lock wheels on bed/wheelchair 8. Provide adequate lighting, including night light 9. Assess need for additional bedding, food/fluids, pain med's prior to sleep/routinely 10. Provide gripper slippers or personal non-skid footwear 11. Teach patient and patient solar manufacturer's representative to maintain environment for safety and engage in all aspects of fall prevention program 12. Remind patient to call for help before getting out of bed 13. Initiate bed/chair/exit alarms supportive devices as appropriate, (chair wedge, no-skid floor mat, raised edge mattress, hip protectors) 14. Locate patient bed assignment for optimal visualization 15. Evaluate and identify Safe Patient Handling Equipment needs 16. Provide supervision when out of bed or chair 17. Utilize gait belt as needed to assist with ambulation 18. Place adaptive equipment (cane, walker) within reach 19. Request patient solar manufacturer's representative bring adaptive equipment/mobility aids from home or obtain and provide as needed 20. Consult pharmacy regarding effects of med's affecting mobility, cognition, and alternatives 21. Obtain physician order for PT if risk factors associated with mobility are present 22. Obtain physician order for OT as appropriate 23. Utilize diversional activities 24. Educate patient and patient solar manufacturer's representative how to maintain a safe environment during visitationtimes (notify nurse prior to leaving bedside) 25. Consider appropriateness of medical or non-medical office asst 26. Set up voiding schedule as appropriate (every 2 hours) Outcome: Progressing Note: Evaluation of progress towards goal: Patient remains free from fall, bed in lowest position, bed wheels locked, call light in reach, hourly rounding Problem: Potential for Compromised Skin Integrity Goal: Skin integrity is maintained or improved Description: Patient's goal is: INTERVENTIONS 1. Perform initial skin assessment on admission and as needed 2. Turn patient every 2 hours and PRN 3. Relieve pressure to bony prominences 4. Avoid shearing 5. Keep skin clean and dry 6. Alternate a full bath with partial baths for elderly 7. Apply lotion/moisturizer on skin 8. Monitor patient's hygiene practices 9. Float heels 10. Collaborate with interdisciplinary team and initiate plans and interventions as needed Outcome: Progressing Note: Evaluation of progress towards goal: Patient refusing every 2 hour turns at this time, skin kept clean and dry. Plan of care ongoing. Goal: Patient's nutritional intake is adequate Description: Patient's goal is: INTERVENTIONS 1. Assess and monitor food intake and supplements, patient food preferences, nausea, vomiting, labs, oral cavity (gums, teeth, tongue, mucosa), proper denture fit, and cultural beliefs 2. Monitor for signs of hypoglycemia and hyperglycemia 3. Collaborate with interdisciplinary team and initiate plan and interventions as ordered 4. Monitor patient's weight 5. Assist patient with meals/food selection 6. Assist patient with eating 7. Allow adequate time for meals 8. Provide pleasant environment during mealtime 9. Increase social contact during mealtimes 10. Plan activities to conserve energy 11. Encourage/perform oral hygiene as appropriate 12. Encourage patient to take dietary supplement as ordered 13. Collaborate with clinical army ranger 14. Include patient/ patient's solar manufacturer's representative in decisions related to nutrition Outcome: Progressing Note: Evaluation of progress towards goal: Pt remains on regular diet/level 2 mildly thick liquids,tolerating well. Will continue to encourage PO intake. Problem: Urinary Incontinence Goal: Perineal skin integrity is maintained or improved Description: INTERVENTIONS 1. Assess genitourinary system, perineal skin, labs (urinalysis), and history of incontinence to include past management, aggravating, and alleviating factors 2. Keep skin clean and dry 3. Apply skin protectant 4. Develop skin care regimen 5. Provide privacy when changing patients incontinence device to maintain their dignity 6. Consider placing an indwelling catheter 7. Collaborate with interdisciplinary team and initiate plans and interventions as needed Outcome: Progressing Note: Evaluation of progress towards goal: Delfina/ burr care done PRN and per policy. Problem: Inadequate Breathing Pattern Goal: Patient will maintain effective ventilation Description: Patient's goal is: INTERVENTIONS 1. Assess and monitor vital signs, respiratory status (to include respiratory rate, depth, effort, and breath sounds), oxygen saturation, oral mucosa, tongue, pain, and labs (ABGs). 2. Collaborate with interdisciplinary team and initiate plans and interventions as needed 3. Oxygen therapy as indicated 4. Position patient for maximum ventilatory efficiency 5. Instruct patient to turn, cough, and deep breathe; encourage incentive spirometer if indicated 6. Plan activities to conserve energy 7. Encourage ambulation/activity per patient's tolerance 8. Collaborate with patient/RT to administer medications/treatments 9. Monitor lab/diagnostic results Outcome: Progressing Note: Evaluation of progress towards goal: Respiratory status remains stable at this time on 5 L NC. Plan of care ongoing. * Discharge Planning Note - Alexandra Dumont RN - 02/08/2025 10:09 AM EDT DISCHARGE PLANNING NOTE Case discussed in daily transition rounds and chart reviewed by CN. Barriers to discharge include 4L NC, IV antibiotics, Bi-PAP at , PT/OT eval, Palliative consulted Discharge Plan remains: return to [facility] [place] to complete short term rehab. CN will continue to follow and is available should any further needs arise. - Alexandra Dumont RN 02/08/25 10:10 AM [facility] [place] will need a new auth prior to her discharge from the hospital. Waiting PT/OT eval. - Alexandra Dumont RN 02/08/25 12:13 PM * Query Response - Yazmin Rodgers DO - 02/08/2025 7:38 AM EDT Query Response Note CDI QUERY TEXT: Clinical Validity [id number] Disclaimer: By submitting this query, we are merely seeking further clarification of documentation to accurately reflect all conditions that you are monitoring, evaluating, treating or that extend the hospitalization or utilize additional resources of care. Please utilize your independent clinical judgment when addressing the question(s) below. Please provide additional clinical indicators supportive of your documented diagnosis of Pneumonia - Condition exists and additional clinical indicators documented in the medical record (please document in your next progress note) - Condition does not exist and amended documentation provided in the medical record (please provideamended documentation in your next progress note) - Other, please specify: Clinical Indicators: 02/07 ID Consult: CT chest reviewed, she does have a right-sided small pleural effusion. No gross lobar consolidations. Does not have significant ground-glass opacities does have notable underlying severe emphysema....Can stop pip-tazo, CT chest reviewed from 02/04 and 01/25 do not appear significantly different . The patient's Clinical Indicators include: As above Thank you, Ness Deng RN, NIYA CDI RESPONSE TEXT: Treated for HAP empirically prior to finding an infective source, but likely the dual chamber pacemaker placement after careful consideration Query created by: Ness Deng on 02/08/2025 6:39 AM [facility] QUERY TEXT: Encephalopathy Type [facility] Disclaimer: By submitting this query, we are merely seeking further clarification of documentation to accurately reflect all conditions that you are monitoring, evaluating, treating or that extend the hospitalization or utilize additional resources of care. Please utilize your independent clinical judgment when addressing the question(s) below. Encephalopathy is documented in the medical record. Please specify type such as: - Metabolic - Septic - Toxic, Toxic metabolic - Other, specify: H&P and daily PN's 'Acute encephalopathy, GCS of 6 requiring intubation for airway protection'. 02/05 PN 'improving mentation' 02/08 (0400) deburring machine operator: Alert, oriented X 4. Follows commands The patient's Clinical Indicators include: As above Thank you, Ness Deng Rn, NIYA CDI RESPONSE TEXT: Septic encephalopathy Query created by: Ness Deng on 02/08/2025 6:43 AM Electronically signed by: Yazmin Rodgers DO 02/08/2025 7:36 AM * Plan of Care - Lila Choudhary [facility] - 02/08/2025 12:52 AM EDT Problem: Inadequate Breathing Pattern Goal: Patient will maintain effective ventilation Description: Patient's goal is: INTERVENTIONS 1. Assess and monitor vital signs, respiratory status (to include respiratory rate, depth, effort, and breath sounds), oxygen saturation, oral mucosa, tongue, pain, and labs (ABGs). 2. Collaborate with interdisciplinary team and initiate plans and interventions as needed 3. Oxygen therapy as indicated 4. Position patient for maximum ventilatory efficiency 5. Instruct patient to turn, cough, and deep breathe; encourage incentive spirometer if indicated 6. Plan activities to conserve energy 7. Encourage ambulation/activity per patient's tolerance 8. Collaborate with patient/RT to administer medications/treatments 9. Monitor lab/diagnostic results Outcome: Progressing Note: Evaluation of progress towards goal: reviewed and continued Respiratory Therapy Clinical Practice Guidelines Consult Clinical Practice Guidelines Ordered Consult Assessment: Consult, NIV CPAP, Bronchodilator Bronchodilator Indications: Bronchospasm/wheezing Bronchodilator Total: 2 Vital Signs Pulse: 70 Heart Rate Source: Monitor Resp: 23 SpO2: 100 % O2 Device: Bi-PAP O2 Flow Rate (L/min): 4 L/min FiO2 (%): 40 % Respiratory Assessment Assessment Type: Post-treatment Level of Consciousness: Alert Respiratory Pattern: Regular Chest Assessment: Chest expansion symmetrical Bilateral Breath Sounds: Clear, Diminished Readings Vt (observed, mL): 402 mL Minute Ventilation (L/min): 5.4 L/min PIP Observed (cm H2O): 11 cm H2O Total Rate : 16 Leakage: 0 Patient Active Problem List Diagnosis senior living (current) use of anticoagulants Typical atrial flutter (CMS-HCC) Primary hypertension Seasonal allergies Pulmonary nodule less than 6 mm determined by computed tomography of lung Anxiety COPD, severe (CMS-HCC) Chronic respiratory failure with hypoxia and hypercapnia (CMS-HCC) WILIAN treated with BiPAP Mixed hyperlipidemia NSTEMI (non-ST elevated myocardial infarction) ([facility]) Myoclonus Acute on chronic respiratory failure ([facility]) Last Chest XRAY: Reviewed Pulmonary History: COPD RT Reassessment Due In: 12 hours Bronchodilator Respiratory Rate Level 2: Less than 20 Dyspnea Level 2: Periodic SOB Breath Sounds Level 1: Clear Respiratory History Level 4: Diagnosis of pulmonary disease such as: Asthma/reactive airway disease; Bronchitis/Emphysema (COPD) ; Cystic Fibrosis ; Severe Laryngitis/Tracheitis/Bronchiectasis ; Microbial infection ; Anesthesia related bronchospasms Oxygen to Keep SpO2 Greater Than Or Equal To 92% Level 2: 1-3 LPM 25%-35% or NIV 41 - 50% Peak Flow ([facility] Only) Home Therapy: Not Applicable Patients Current Level & Intervention: 2 Three times daily and Q4 PRN for wheezing * Discharge Planning Note - Rajesh Paris RN - 02/07/2025 10:48 AM EDT Images from the original note were not included. DISCHARGE PLANNING NOTE Toolmaker Grade Three met with patient, introduced self, and explained role. Patient educated on safe discharge plan. Pt admitted 02/04/2025 with Tachycardia [R00.0] Acute on chronic respiratory failure ([facility]) [J96.20] Non-sustained ventricular tachycardia ([facility]) [I47.29] per chart review. Spoke with pt and then called her . Pt is here from [facility] the plan at this time is for her to return there when medically ready Past Medical History: Diagnosis Date Acute respiratory failure ([facility]) 09/02/2022 ARF (acute respiratory failure) ([facility]) 09/02/2022 Chronic pain Emphysema ([facility]) Hypertension Sleep apnea Prior to admission patient was SNF and partial assistance. Medical equipment patient used prior to admission includes: Cane, CPAP, Home Oxygen, Walker - Standard, and Wheelchair. Patient denies need for transportation/ food/ prescription medication assistance resources. PCP: HOUSTON BROWN MD [facility] and [facility] confirmed with patient. CN offered to assist with follow up appointment arrangements; patient declines - states will self-schedule follow up appointments. HOUSTON BROWN MD added to Follow Up Providers for Summary of Care communication. Per patient self-report: Drug use: denies Smoking: denies ETOH Use: denies Current discharge plan is: SNF Services Requested: Services Requested Patient expects to be discharged to:: [facility] Does the patient wish to have family/friend/caregiver involved in their discharge planning?: Yes Does the patient plan to return home to a community setting?: Yes Has the family/friend/caregiver been assessed to determine their readiness, skills, capacities, andresources to provide post hospital care?: Yes, Caregiver Assessment Completed Discharge Disposition: Skilled Return Skilled Return Name: [facility] Skilled Return Does the patient need discharge transportation arranged?: Yes Transportation Arranged: Ambulance Goals: Goals SNF (pt-stated) Evaluation of progress towards goal: Progress to a safe discharge Will continue to follow as plan of care develops. CN discussed benefits and importance of medication compliance and follow ups. Please feel free to reach out for any discharge planning questions. - RAJESH PARIS RN 02/07/25 10:48 AM * PT/OT/TRAINING DESIGNER - Marisol Nunez CCC-TRAINING DESIGNER - 02/07/2025 8:54 AM EDT Speech Therapy Videofluoroscopic Swallow Study Evaluation Discharge Recommendations for Safe Patient Transition Post Discharge Therapy Recommendations: (Continued ST services) Recommendations Diet Level: Regular Liquid Level: Level 2 Mildly Thick Compensatory Strategies: Small sips/bites, One sip/bite at a time, Follow aspiration precautions Supervision/Positioning: Patient at 90 degress for all PO intake (including medication), Patient toremain upright 15 minutes after meals Medications: In applesauce/puree Referrals: Dysphagia therapy Impressions Oral Phase: Mild Pharyngeal Phase: Mild Functional Oral Intake Scale: Total PO with multiple consistencies requiring special prep Plan Frequency: 2-3days/week Duration: until discharge Treatments/Modalities: Safety strategies, Pharyngeal strengthening, Miles maneuver, Maeve maneuver Need for skilled Speech Language Pathology Services to address deficits in feeding/swallowing due to a status decline resulting from acute on chronic respiratory failure. Pt educated on purpose of exam, contrast administration, and procedural techniques prior to initiation of exam. Pt educated on diet recommendations, plan of care, and encouraged to use safety strategies in order to maintain safe PO intake following exam. Prognosis Services: Skilled TRAINING DESIGNER services to address above deficits Prognosis/Potential: Good Considerations: Previous level of function Assessment Baseline Assessment Allergies Marked As Reviewed: Complete Consistencies Tested Views: Lateral position Level 0 Thin: Spoon, Straw, Cup Level 2 Mildly Thick: Cup, Straw Level 4 Pureed: Spoon Level 6 Soft & Bite-Sized: Spoon Regular Tested: Bite Modified Barium Swallow Impairment Profile (MBSImP) Oral Impairment: Yes Component 1: Lip Closure: no labial escape Component 2: Tongue Control During Bolus Hold: escape to lateral buccal cavity/floor of mouth Component 3: Bolus Preparation/Mastication: slow prolonged chewing/mashing with complete re-collection Component 4: Bolus Transport/Lingual Motion: slowed tongue motion Component 5: Oral Residue: residue collection on oral structures Component 6: Initiation of Pharyngeal Swallow: bolus head in pyriforms Pharyngeal Impairment: Yes Component 7: Soft Palate Elevation: no bolus between soft palate/posterior pharyngeal wall Component 8: Laryngeal Elevation: partial superior movement of thyroid cartilage/partial approximation of arytenoids to epiglottic petiole Component 9: Anterior Hyoid Excursion: partial anterior movement Component 10: Epiglottic Movement: partial inversion Component 11: Laryngeal Vestibular Closure - Height of the Swallow: incomplete, narrow column of contrast/air in laryngeal vestibule Component 12: Pharyngeal Stripping Wave: present - diminished Component 13: Pharyngeal Contraction (A/P view only): could not be determined due to logistical reasons not related to physiologic impairment Component 14: Pharyngoesophageal Segment Opening: minimal distension/minimal duration, marked obstruction of flow Component 15: Tongue Base Retraction: narrow column of contrast/air between tongue base and posterior pharyngeal wall Component 16: Pharyngeal Residue: collection of residue within or on pharyngeal structures MBSImP Overall Impression Scores Oral Impairment Total: 9 Pharyngeal Impairment Total: 11 Penetration/Aspiration Scale Penetration/Aspiration Scale Performed: Yes Level 0 Thin: Contrast entered the airway, remained above the vocal folds, and was not ejected fromthe airway Level 2 Mildly Thick: Contrast did not enter the airway Level 4 Pureed: Contrast did not enter the airway Level 6 Soft & Bite-Sized: Contrast did not enter the airway Regular: Contrast did not enter the airway Trialed Compensatory Strategies Strategies Utilized: Small sips/bites Effective: Yes Pain Assessment Pain Assessment: No/denies pain Plan Diagnosis Code Swallowing: R13.12 Dysphagia, oropharyngeal phase Speech Therapy Care Plan Speech Therapy Care Plan (Active) Template: ST - Dysphagia Problem: Swallowing Dates: Start: 02/06/25 Disciplines: TRAINING DESIGNER Goal: LTG: Patient will maintain adequate nutrition/ hydration with optimum safety and efficiency of swallowing function of oral intake without overt signs/symptoms of aspiration for the highest appropriate diet level Dates: Start: 02/06/25 Expected End: 03/13/25 Disciplines: TRAINING DESIGNER Goal: STG: Patient will tolerate therapeutic feeding trials of advanced textures with 90% accuracy with minimal cueing Dates: Start: 02/06/25 Expected End: 03/13/25 Disciplines: TRAINING DESIGNER Speech Therapy Care Plan (Resolved) There are no resolved problems. Principal Problem: Acute on chronic respiratory failure ([facility]) * Plan of Care - Cirilo Garland RCP - 02/07/2025 7:27 AM EDT Problem: Inadequate Breathing Pattern Goal: Patient will maintain effective ventilation Description: Patient's goal is: INTERVENTIONS 1. Assess and monitor vital signs, respiratory status (to include respiratory rate, depth, effort, and breath sounds), oxygen saturation, oral mucosa, tongue, pain, and labs (ABGs). 2. Collaborate with interdisciplinary team and initiate plans and interventions as needed 3. Oxygen therapy as indicated 4. Position patient for maximum ventilatory efficiency 5. Instruct patient to turn, cough, and deep breathe; encourage incentive spirometer if indicated 6. Plan activities to conserve energy 7. Encourage ambulation/activity per patient's tolerance 8. Collaborate with patient/RT to administer medications/treatments 9. Monitor lab/diagnostic results Outcome: Progressing Note: Respiratory Therapy Clinical Practice Guidelines Consult Clinical Practice Guidelines Ordered Consult Assessment: Consult Bronchodilator Indications: Bronchospasm/wheezing Bronchodilator Total: 2 Vital Signs FiO2 (%): 40 % Respiratory Assessment Assessment Type: Subsequent assessment Level of Consciousness: Responds to Voice Respiratory Pattern: Regular Chest Assessment: Chest expansion symmetrical Bilateral Breath Sounds: Clear, Diminished Readings Vt Spontaneous (mL): 556 mL Minute Ventilation (L/min): 6 L/min PIP Observed (cm H2O): 12 cm H2O Total Rate : 14 Leakage: 27 Patient Active Problem List Diagnosis senior living (current) use of anticoagulants Typical atrial flutter ([facility]) Primary hypertension Seasonal allergies Pulmonary nodule less than 6 mm determined by computed tomography of lung Anxiety COPD, severe ([facility]) Chronic respiratory failure with hypoxia and hypercapnia ([facility]) WILIAN treated with BiPAP Mixed hyperlipidemia NSTEMI (non-ST elevated myocardial infarction) ([facility]) Myoclonus Acute on chronic respiratory failure ([facility]) Last Chest XRAY: Reviewed Pulmonary History: RT Reassessment Due In: 12 hours Mechanical Ventilator Broncho-Pulmonary Hygiene Breath Sounds Level 1: Slightly Diminished or clear Chest X-Ray Level 1: Possible signs of consolidation and/or atelectasis or clear Sputum Production Level 1: None or small amount of thin or watery secretions with suctioning History & Physical Level 1: None New onset of bronchitis or existing chronic pulmonary condition. * (not in an exacerbation) Patients Current Level & Intervention: Level 1: No BP hygiene indicated. Continue suctioning every 4 hours Intervention Mode Selected: Mechanical Ventilator Bronchodilator Breath Sounds Home Therapy: Patient Baseline Respiratory History Home Therapy: Requires home therapy Peak Pressures Home Therapy: Patient Baseline Peak Minus Plateau Pressure Home Therapy: NA Other Considerations for adventitious breath sounds, elevated peak pressures and peak/plateau difference. Endotracheal tube too small, tube kinked/Foreign body in the lumen Partial cuff herniation Secretions and/or mucus plugging Tracheal malacia or stenosis Patients Current Level & Intervention: Home Therapy As at home, reconcile orders with home medsif pulmonary status is stable Evaluation of progress towards goal: Reviewed * Plan of Care - Mague Ren RN - 02/07/2025 7:23 AM EDT Problem: Pain Goal: Patient goal is pain score less than 4, able to rest, and participant in treatment plan as appropriate Description: INTERVENTIONS: 1. Encourage patient or legal solar manufacturer's representative to report early pain and ask for pain medicine when needed 2. Assess pain using appropriate pain scale and include the scale used when documenting 3. Administer analgesics based on type and severity of pain and evaluate response within appropriate time frame 4. Implement non-pharmacological measures as appropriate and evaluate response 5. Consider cultural and social influences on pain and pain management 6. Notify LIP if interventions ineffective or patient reports new pain 7. Monitor vital signs including pulse ox, end-tidal CO2 based on pain intervention 8. Reassess pain per policy 9. Teach patient or legal solar manufacturer's representative interventions for comforting Outcome: Progressing Note: Evaluation of progress towards goal: Patient is assessed every 4 hours for pain. Patients vitals are monitored and nonverbals are assessed. Problem: Safety Goal: Patient will be injury free during hospitalization Description: INTERVENTIONS: 1. Assess patient's risk for falls and implement fall prevention plan of care per policy 2. Provide and maintain a safe environment 3. Proper use of double Identifiers 4. Medication administration using the 5 rights 5. Hand hygiene 6. Specimens are labeled at the bedside 7. Instruct patient/ patient solar manufacturer's representative about use of safety devices 8. Include patient/ patient solar manufacturer's representative in decisions related to safety Outcome: Progressing Note: Evaluation of progress towards goal: Patient is free of injury at present time. Bed brakes locked and lowered. Call light in reach and frequent rounding to ensure safety. Problem: Infection Goal: Absence of infection during hospitalization Description: INTERVENTIONS 1. Assess and monitor for signs and symptoms of infection. 2. Monitor lab/diagnostic results. 3. Monitor all insertion sites i.e., indwelling lines, tubes and drains. 4. Monitor endotracheal (as able) and nasal secretions for changes in amount and color. 5. Administer medications as ordered. 6. Instruct and encourage patient and family to use good hand hygiene technique. 7. Identify and instruct patient/patient solar manufacturer's representative in use of appropriate isolation precautionsfor identified infection/symptoms. 8. Provide and discuss with patient/patient solar manufacturer's representative on educational MDRO sheet. 9. Encourage and monitor nutritional status daily and consult army ranger if indicated. 10. Implement neutropenic guidelines as needed. Outcome: Progressing Note: Evaluation of progress towards goal: Patient is afebrile at present time. Will monitor labs and vital signs. Problem: Knowledge Deficit Goal: Patient/patient solar manufacturer's representative demonstrates understanding of disease process, treatment plan,medications, and discharge instructions Description: INTERVENTIONS 1. Complete learning assessment and assess knowledge base 2. Provide teaching at level of understanding 3. Provide teaching via preferred learning method(s) Outcome: Progressing Note: Evaluation of progress towards goal: Patient is updated on treatments and medications. Will continue to educate. Problem: Moderate - High Risk Fall Score Description: Castillo Fall Score of =/> 25 or indicated by [facility] Assessment Goal: Patient should be free from fall Description: Interventions: 1. Lund to environment 2. Hourly rounds addressing the 4 P's (Pain, Positioning, Possessions, Potty) 3. Clear area of hazards (spills, clutter, electrical cords, unnecessary equipment) 4. Place equipment (bed & TV controls, call light, phone, urinal) within reach 5. Encourage patient to wear glasses and hearing aides as appropriate 6. Maintain bed in lowest position 7. Lock wheels on bed/wheelchair 8. Provide adequate lighting, including night light 9. Assess need for additional bedding, food/fluids, pain med's prior to sleep/routinely 10. Provide gripper slippers or personal non-skid footwear 11. Teach patient and patient solar manufacturer's representative to maintain environment for safety and engage in all aspects of fall prevention program 12. Remind patient to call for help before getting out of bed 13. Initiate bed/chair/exit alarms supportive devices as appropriate, (chair wedge, no-skid floor mat, raised edge mattress, hip protectors) 14. Locate patient bed assignment for optimal visualization 15. Evaluate and identify Safe Patient Handling Equipment needs 16. Provide supervision when out of bed or chair 17. Utilize gait belt as needed to assist with ambulation 18. Place adaptive equipment (cane, walker) within reach 19. Request patient solar manufacturer's representative bring adaptive equipment/mobility aids from home or obtain and provide as needed 20. Consult pharmacy regarding effects of med's affecting mobility, cognition, and alternatives 21. Obtain physician order for PT if risk factors associated with mobility are present 22. Obtain physician order for OT as appropriate 23. Utilize diversional activities 24. Educate patient and patient solar manufacturer's representative how to maintain a safe environment during visitationtimes (notify nurse prior to leaving bedside) 25. Consider appropriateness of medical or non-medical office asst 26. Set up voiding schedule as appropriate (every 2 hours) Outcome: Progressing Note: Evaluation of progress towards goal: Pt is free from falls at present time. Bed locked and lowered at current time. Call light in reach. Problem: Potential for Compromised Skin Integrity Goal: Skin integrity is maintained or improved Description: Patient's goal is: INTERVENTIONS 1. Perform initial skin assessment on admission and as needed 2. Turn patient every 2 hours and PRN 3. Relieve pressure to bony prominences 4. Avoid shearing 5. Keep skin clean and dry 6. Alternate a full bath with partial baths for elderly 7. Apply lotion/moisturizer on skin 8. Monitor patient's hygiene practices 9. Float heels 10. Collaborate with interdisciplinary team and initiate plans and interventions as needed Outcome: Progressing Note: Evaluation of progress towards goal: Patient has indwelling catheter to help with skin integrity. Will continue to monitor. Patient turned every 2 hours with pillow support. * Plan of Care - Amari Dhaliwalcorky [facility] - 02/06/2025 11:29 PM EDT Problem: Inadequate Breathing Pattern Goal: Patient will maintain effective ventilation Description: Patient's goal is: INTERVENTIONS 1. Assess and monitor vital signs, respiratory status (to include respiratory rate, depth, effort, and breath sounds), oxygen saturation, oral mucosa, tongue, pain, and labs (ABGs). 2. Collaborate with interdisciplinary team and initiate plans and interventions as needed 3. Oxygen therapy as indicated 4. Position patient for maximum ventilatory efficiency 5. Instruct patient to turn, cough, and deep breathe; encourage incentive spirometer if indicated 6. Plan activities to conserve energy 7. Encourage ambulation/activity per patient's tolerance 8. Collaborate with patient/RT to administer medications/treatments 9. Monitor lab/diagnostic results Outcome: Progressing Note: Evaluation of progress towards goal: ProgressingRespiratory Therapy Clinical Practice Guidelines Consult Clinical Practice Guidelines Ordered Consult Assessment: Consult, Bronchodilator, NIV CPAP Bronchodilator Indications: Diseases requiring aerosolized medication Bronchodilator Total: 2 Vital Signs Pulse: 70 Heart Rate Source: Monitor Resp: 19 SpO2: 100 % O2 Device: Nasal cannula O2 Flow Rate (L/min): 6 L/min Patient Position: Semi-fowlers Respiratory Assessment Assessment Type: Post-treatment Level of Consciousness: Alert Respiratory Pattern: Accessory muscle use, Regular Chest Assessment: Chest expansion symmetrical Bilateral Breath Sounds: Clear, Diminished Patient Active Problem List Diagnosis senior living (current) use of anticoagulants Typical atrial flutter ([facility]) Primary hypertension Seasonal allergies Pulmonary nodule less than 6 mm determined by computed tomography of lung Anxiety COPD, severe ([facility]) Chronic respiratory failure with hypoxia and hypercapnia ([facility]) WILIAN treated with BiPAP Mixed hyperlipidemia NSTEMI (non-ST elevated myocardial infarction) ([facility]) Myoclonus Acute on chronic respiratory failure ([facility]) Last Chest XRAY: Reviewed Pulmonary History: COPD, WILIAN, Former smoker, Pulmonary nodules RT Reassessment Due In: 12 hours Bronchodilator Respiratory Rate Home Therapy: Patient baseline Dyspnea Home Therapy: Patient Baseline Breath Sounds Home Therapy: Patient Baseline Respiratory History Home Therapy: Requires home therapy Oxygen to Keep SpO2 Greater Than Or Equal To 92% Home Therapy: Patient Baseline Peak Flow ([facility] Only) Home Therapy: Not Applicable Patients Current Level & Intervention: Home Therapy As at home, reconcile orders with home medsif pulmonary status is stable * Plan of Care - Maye Chau RN - 02/06/2025 7:31 PM EDT Problem: Pain Goal: Patient goal is pain score less than 4, able to rest, and participant in treatment plan as appropriate Description: INTERVENTIONS: 1. Encourage patient or legal solar manufacturer's representative to report early pain and ask for pain medicine when needed 2. Assess pain using appropriate pain scale and include the scale used when documenting 3. Administer analgesics based on type and severity of pain and evaluate response within appropriate time frame 4. Implement non-pharmacological measures as appropriate and evaluate response 5. Consider cultural and social influences on pain and pain management 6. Notify LIP if interventions ineffective or patient reports new pain 7. Monitor vital signs including pulse ox, end-tidal CO2 based on pain intervention 8. Reassess pain per policy 9. Teach patient or legal solar manufacturer's representative interventions for comforting Outcome: Progressing Note: Evaluation of progress towards goal: Pain being assessed using appropriate pain scale for patient. Pain scale used and documented while charting. Pain re- assessed per policy. Problem: Safety Goal: Patient will be injury free during hospitalization Description: INTERVENTIONS: 1. Assess patient's risk for falls and implement fall prevention plan of care per policy 2. Provide and maintain a safe environment 3. Proper use of double Identifiers 4. Medication administration using the 5 rights 5. Hand hygiene 6. Specimens are labeled at the bedside 7. Instruct patient/ patient solar manufacturer's representative about use of safety devices 8. Include patient/ patient solar manufacturer's representative in decisions related to safety Outcome: Progressing Note: Evaluation of progress towards goal: Area free from hazards. Safe environment being maintained. Will continue to monitor. Problem: Infection Goal: Absence of infection during hospitalization Description: INTERVENTIONS 1. Assess and monitor for signs and symptoms of infection. 2. Monitor lab/diagnostic results. 3. Monitor all insertion sites i.e., indwelling lines, tubes and drains. 4. Monitor endotracheal (as able) and nasal secretions for changes in amount and color. 5. Administer medications as ordered. 6. Instruct and encourage patient and family to use good hand hygiene technique. 7. Identify and instruct patient/patient solar manufacturer's representative in use of appropriate isolation precautionsfor identified infection/symptoms. 8. Provide and discuss with patient/patient solar manufacturer's representative on educational MDRO sheet. 9. Encourage and monitor nutritional status daily and consult army ranger if indicated. 10. Implement neutropenic guidelines as needed. Outcome: Progressing Note: Evaluation of progress towards goal: Continually monitor for signs and symptoms of infection.Monitoring all insertion sites of indwelling lines tubes and drains for signs of infection. Problem: Knowledge Deficit Goal: Patient/patient solar manufacturer's representative demonstrates understanding of disease process, treatment plan,medications, and discharge instructions Description: INTERVENTIONS 1. Complete learning assessment and assess knowledge base 2. Provide teaching at level of understanding 3. Provide teaching via preferred learning method(s) Outcome: Progressing Note: Evaluation of progress towards goal: Learning assessment being done and knowledge based beingassessed. Will continue to reinforce education. Problem: Moderate - High Risk Fall Score Description: Castillo Fall Score of =/> 25 or indicated by [facility] Assessment Goal: Patient should be free from fall Description: Interventions: 1. Lund to environment 2. Hourly rounds addressing the 4 P's (Pain, Positioning, Possessions, Potty) 3. Clear area of hazards (spills, clutter, electrical cords, unnecessary equipment) 4. Place equipment (bed & TV controls, call light, phone, urinal) within reach 5. Encourage patient to wear glasses and hearing aides as appropriate 6. Maintain bed in lowest position 7. Lock wheels on bed/wheelchair 8. Provide adequate lighting, including night light 9. Assess need for additional bedding, food/fluids, pain med's prior to sleep/routinely 10. Provide gripper slippers or personal non-skid footwear 11. Teach patient and patient solar manufacturer's representative to maintain environment for safety and engage in all aspects of fall prevention program 12. Remind patient to call for help before getting out of bed 13. Initiate bed/chair/exit alarms supportive devices as appropriate, (chair wedge, no-skid floor mat, raised edge mattress, hip protectors) 14. Locate patient bed assignment for optimal visualization 15. Evaluate and identify Safe Patient Handling Equipment needs 16. Provide supervision when out of bed or chair 17. Utilize gait belt as needed to assist with ambulation 18. Place adaptive equipment (cane, walker) within reach 19. Request patient solar manufacturer's representative bring adaptive equipment/mobility aids from home or obtain and provide as needed 20. Consult pharmacy regarding effects of med's affecting mobility, cognition, and alternatives 21. Obtain physician order for PT if risk factors associated with mobility are present 22. Obtain physician order for OT as appropriate 23. Utilize diversional activities 24. Educate patient and patient solar manufacturer's representative how to maintain a safe environment during visitationtimes (notify nurse prior to leaving bedside) 25. Consider appropriateness of medical or non-medical office asst 26. Set up voiding schedule as appropriate (every 2 hours) Outcome: Progressing Note: Evaluation of progress towards goal: Bed in lowest position with wheels locked. Hourly rounding to assess patient needs is being completed. Area is free of hazards. Problem: Potential for Compromised Skin Integrity Goal: Skin integrity is maintained or improved Description: Patient's goal is: INTERVENTIONS 1. Perform initial skin assessment on admission and as needed 2. Turn patient every 2 hours and PRN 3. Relieve pressure to bony prominences 4. Avoid shearing 5. Keep skin clean and dry 6. Alternate a full bath with partial baths for elderly 7. Apply lotion/moisturizer on skin 8. Monitor patient's hygiene practices 9. Float heels 10. Collaborate with interdisciplinary team and initiate plans and interventions as needed Outcome: Progressing Note: Evaluation of progress towards goal: Patient being turned Q2 hours prn. Hygiene completed Qshift and as needed. Maintain clean dry skin. Goal: Patient's nutritional intake is adequate Description: Patient's goal is: INTERVENTIONS 1. Assess and monitor food intake and supplements, patient food preferences, nausea, vomiting, labs, oral cavity (gums, teeth, tongue, mucosa), proper denture fit, and cultural beliefs 2. Monitor for signs of hypoglycemia and hyperglycemia 3. Collaborate with interdisciplinary team and initiate plan and interventions as ordered 4. Monitor patient's weight 5. Assist patient with meals/food selection 6. Assist patient with eating 7. Allow adequate time for meals 8. Provide pleasant environment during mealtime 9. Increase social contact during mealtimes 10. Plan activities to conserve energy 11. Encourage/perform oral hygiene as appropriate 12. Encourage patient to take dietary supplement as ordered 13. Collaborate with clinical army ranger 14. Include patient/ patient's solar manufacturer's representative in decisions related to nutrition Outcome: Progressing Note: Evaluation of progress towards goal: Patient being turned Q2 hours prn. Hygiene completed Qshift and as needed. Maintain clean dry skin. Problem: Urinary Incontinence Goal: Perineal skin integrity is maintained or improved Description: INTERVENTIONS 1. Assess genitourinary system, perineal skin, labs (urinalysis), and history of incontinence to include past management, aggravating, and alleviating factors 2. Keep skin clean and dry 3. Apply skin protectant 4. Develop skin care regimen 5. Provide privacy when changing patients incontinence device to maintain their dignity 6. Consider placing an indwelling catheter 7. Collaborate with interdisciplinary team and initiate plans and interventions as needed Outcome: Progressing Note: Evaluation of progress towards goal: burr in place Problem: Inadequate Breathing Pattern Goal: Patient will maintain effective ventilation Description: Patient's goal is: INTERVENTIONS 1. Assess and monitor vital signs, respiratory status (to include respiratory rate, depth, effort, and breath sounds), oxygen saturation, oral mucosa, tongue, pain, and labs (ABGs). 2. Collaborate with interdisciplinary team and initiate plans and interventions as needed 3. Oxygen therapy as indicated 4. Position patient for maximum ventilatory efficiency 5. Instruct patient to turn, cough, and deep breathe; encourage incentive spirometer if indicated 6. Plan activities to conserve energy 7. Encourage ambulation/activity per patient's tolerance 8. Collaborate with patient/RT to administer medications/treatments 9. Monitor lab/diagnostic results Outcome: Progressing Note: Evaluation of progress towards goal: bipap * PT/OT/TRAINING DESIGNER - Tess Burns CCC-TRAINING DESIGNER - 02/06/2025 3:15 PM EDT Speech Therapy Bedside Swallow/ Feeding Evaluation Discharge Recommendations for Safe Patient Transition Post Discharge Therapy Recommendations: (ongoing ST services) Current Impairments Informing Therapy Recommendation: Swallowing Will plan for video swallow prior to diet initiation. Recommendations Diet Level: NPO Liquid Level: No liquids Referrals: [facility], Dysphagia therapy Impressions Oral Dysphagia: Mild Pharyngeal Dysphagia Suspected: Yes Plan Frequency: 2-3days/week Duration: until discharge Need for skilled Speech Language Pathology Services to address deficits in feeding/swallowing due to a status decline resulting from recent extubation, h/o dysphagia. Pt is a 64yo female with h/o atrial fibrillation s/p ablation currently on Coumadin, COPD with chronic respiratory failure on home O2, with recent admission for NSTEMI and COPD exacerbation with pacer placement who initially presented to OSH 02/03 after being found unresponsive at SNF. Pt was intubated and transferred to [facility] for higher level of care. Encephalopathy with unclear etiology. Pt extubated 02/05. Speech consulted to assess swallow function prior to diet initiation. Pt known to speech services from previous admission where she underwent 2 VFSS. Most recent VFSS recommended 6 Soft & Bite-Sized (SB6) Diet with Moderately Thick Liquids (MO3) on 01/26. Prognosis Services: Skilled TRAINING DESIGNER services to address above deficits Prognosis/Potential: Good Considerations: Age, Previous level of function Assessment Baseline Assessment Prior BSSE/VFSS: 01/26 sb6/mo3 Additional Testing Results: Chest X-Ray, Computed Tomography Setting Prior to Admission: group home facility Associated Problems: Shortness of breath, Recent extubation Respiratory Status: O2 via nasal cannula History of Intubation: Yes Behavior/Cognition: Alert, Cooperative Dentition: Poor denta/oral hygiene Patient Positioning: Upright in bed Ability to Control Secretions: Yes Allergies Marked As Reviewed: Complete Oral/Motor Overall Oral/Motor Status: Exceptions to Within Functional Limits Labial ROM: Reduced Labial Strength: Reduced Labial Coordination: Reduced Lingual ROM: Reduced Lingual Strength: Reduced Lingual Coordination: Reduced Mandible: Impaired Facial Strength: Reduced Facial Coordination: Reduced Vocal Quality: Exceptions to WFL Breathy: Moderate Hoarse: Moderate Weak: Moderate Vocal Intensity: Moderately decreased Intelligibility: Intelligible Breath Support: Inadequate for speech Dentition: Poor denta/oral hygiene Xerostomia: Yes Consistencies Assessed: Yes Level 0 Thin Presentation: Straw Oral: Suspect premature spillage Pharyngeal: Delayed swallow initiation, Decreased laryngeal elevation, Cough- delayed Level 4 Pureed Presentation: Spoon Oral: Suspect premature spillage Pharyngeal: (multiple swallows noted) Cranial Nerve Screening CN V (trigeminal): Reduced mandibular movements CN VII (facial): Other (Comment) CN X (vagus): Other (Comment) CN XII (hypoglossal): Reduced tongue movements Pain Assessment Pain Assessment: No/denies pain Plan Diagnosis Code Swallowing: R13.12 Dysphagia, oropharyngeal phase Speech Therapy Care Plan Speech Therapy Care Plan (Active) Template: - Dysphagia Problem: Swallowing Dates: Start: 02/06/25 Disciplines: TRAINING DESIGNER Goal: LTG: Patient will maintain adequate nutrition/ hydration with optimum safety and efficiency of swallowing function of oral intake without overt signs/symptoms of aspiration for the highest appropriate diet level Dates: Start: 02/06/25 Expected End: 03/13/25 Disciplines: TRAINING DESIGNER Goal: STG: Patient will tolerate therapeutic feeding trials of advanced textures with 90% accuracy with minimal cueing Dates: Start: 02/06/25 Expected End: 03/13/25 Disciplines: TRAINING DESIGNER Speech Therapy Care Plan (Resolved) There are no resolved problems. Principal Problem: Acute on chronic respiratory failure (CMS-HCC) * Plan of Care - Rosa Rasmussen RN - 02/06/2025 3:13 PM EDT Problem: Pain Goal: Patient goal is pain score less than 4, able to rest, and participant in treatment plan as appropriate Description: INTERVENTIONS: 1. Encourage patient or legal solar manufacturer's representative to report early pain and ask for pain medicine when needed 2. Assess pain using appropriate pain scale and include the scale used when documenting 3. Administer analgesics based on type and severity of pain and evaluate response within appropriate time frame 4. Implement non-pharmacological measures as appropriate and evaluate response 5. Consider cultural and social influences on pain and pain management 6. Notify LIP if interventions ineffective or patient reports new pain 7. Monitor vital signs including pulse ox, end-tidal CO2 based on pain intervention 8. Reassess pain per policy 9. Teach patient or legal solar manufacturer's representative interventions for comforting Outcome: Progressing Note: Evaluation of progress towards goal: Patient resting comfortably at this time, will continue to monitor and assess Problem: Safety Goal: Patient will be injury free during hospitalization Description: INTERVENTIONS: 1. Assess patient's risk for falls and implement fall prevention plan of care per policy 2. Provide and maintain a safe environment 3. Proper use of double Identifiers 4. Medication administration using the 5 rights 5. Hand hygiene 6. Specimens are labeled at the bedside 7. Instruct patient/ patient solar manufacturer's representative about use of safety devices 8. Include patient/ patient solar manufacturer's representative in decisions related to safety Outcome: Progressing Note: Evaluation of progress towards goal: Patient remains free from injury at this time, will continue to provide and maintain a safe environment Problem: Infection Goal: Absence of infection during hospitalization Description: INTERVENTIONS 1. Assess and monitor for signs and symptoms of infection. 2. Monitor lab/diagnostic results. 3. Monitor all insertion sites i.e., indwelling lines, tubes and drains. 4. Monitor endotracheal (as able) and nasal secretions for changes in amount and color. 5. Administer medications as ordered. 6. Instruct and encourage patient and family to use good hand hygiene technique. 7. Identify and instruct patient/patient solar manufacturer's representative in use of appropriate isolation precautionsfor identified infection/symptoms. 8. Provide and discuss with patient/patient solar manufacturer's representative on educational MDRO sheet. 9. Encourage and monitor nutritional status daily and consult army ranger if indicated. 10. Implement neutropenic guidelines as needed. Outcome: Progressing Note: Evaluation of progress towards goal: Pt is afebrile at this time. CBC being monitored Problem: Knowledge Deficit Goal: Patient/patient solar manufacturer's representative demonstrates understanding of disease process, treatment plan,medications, and discharge instructions Description: INTERVENTIONS 1. Complete learning assessment and assess knowledge base 2. Provide teaching at level of understanding 3. Provide teaching via preferred learning method(s) Outcome: Progressing Note: Evaluation of progress towards goal: Will continue to educated pt of process, plan, and medications. Problem: Discharge Planning Goal: Discharge to post-acute care, other facility, or home with appropriate resources Description: Patient's goal is: INTERVENTIONS 1. Conduct assessment to determine patient/family and health care team treatment goals, and need for post-acute services based on payer coverage, community resources, and patient preferences, and barriers to discharge 2. Coordinate with Social work, Care Navigation, and Utilization Review to arrange appropriate level of services according to patient's needs based on patient preference and payer coverage in collaboration with the physician and health care team 3. Address psychosocial, clinical, and financial barriers to discharge as identified in assessment in conjunction with the patient/family and health care team 4. Consult appropriate ancillary services (i.e.. PT/OT/ST, etc) as needed 5. Communicate with and update the patient/family, physician, and health care team regarding progress on the discharge plan 6. Identify discharge learning needs (meds, wound care, etc). 7. Arrange for needed discharge transportation as appropriate Outcome: Progressing Note: Evaluation of progress towards goal: patient currently in AICU, will continue to communicate with health care providers regarding discharge Problem: Moderate - High Risk Fall Score Description: Castillo Fall Score of =/> 25 or indicated by [facility] Assessment Goal: Patient should be free from fall Description: Interventions: 1. Lund to environment 2. Hourly rounds addressing the 4 P's (Pain, Positioning, Possessions, Potty) 3. Clear area of hazards (spills, clutter, electrical cords, unnecessary equipment) 4. Place equipment (bed & TV controls, call light, phone, urinal) within reach 5. Encourage patient to wear glasses and hearing aides as appropriate 6. Maintain bed in lowest position 7. Lock wheels on bed/wheelchair 8. Provide adequate lighting, including night light 9. Assess need for additional bedding, food/fluids, pain med's prior to sleep/routinely 10. Provide gripper slippers or personal non-skid footwear 11. Teach patient and patient solar manufacturer's representative to maintain environment for safety and engage in all aspects of fall prevention program 12. Remind patient to call for help before getting out of bed 13. Initiate bed/chair/exit alarms supportive devices as appropriate, (chair wedge, no-skid floor mat, raised edge mattress, hip protectors) 14. Locate patient bed assignment for optimal visualization 15. Evaluate and identify Safe Patient Handling Equipment needs 16. Provide supervision when out of bed or chair 17. Utilize gait belt as needed to assist with ambulation 18. Place adaptive equipment (cane, walker) within reach 19. Request patient solar manufacturer's representative bring adaptive equipment/mobility aids from home or obtain and provide as needed 20. Consult pharmacy regarding effects of med's affecting mobility, cognition, and alternatives 21. Obtain physician order for PT if risk factors associated with mobility are present 22. Obtain physician order for OT as appropriate 23. Utilize diversional activities 24. Educate patient and patient solar manufacturer's representative how to maintain a safe environment during visitationtimes (notify nurse prior to leaving bedside) 25. Consider appropriateness of medical or non-medical office asst 26. Set up voiding schedule as appropriate (every 2 hours) Outcome: Progressing Note: Evaluation of progress towards goal: Patient remains free from fall, bed in lowest position, bed wheels locked, call light in reach, hourly rounding Problem: Potential for Compromised Skin Integrity Goal: Skin integrity is maintained or improved Description: Patient's goal is: INTERVENTIONS 1. Perform initial skin assessment on admission and as needed 2. Turn patient every 2 hours and PRN 3. Relieve pressure to bony prominences 4. Avoid shearing 5. Keep skin clean and dry 6. Alternate a full bath with partial baths for elderly 7. Apply lotion/moisturizer on skin 8. Monitor patient's hygiene practices 9. Float heels 10. Collaborate with interdisciplinary team and initiate plans and interventions as needed Outcome: Progressing Note: Evaluation of progress towards goal: Patient turned every 2 hours, skin kept clean and dry, will continue to monitor and assess Goal: Patient's nutritional intake is adequate Description: Patient's goal is: INTERVENTIONS 1. Assess and monitor food intake and supplements, patient food preferences, nausea, vomiting, labs, oral cavity (gums, teeth, tongue, mucosa), proper denture fit, and cultural beliefs 2. Monitor for signs of hypoglycemia and hyperglycemia 3. Collaborate with interdisciplinary team and initiate plan and interventions as ordered 4. Monitor patient's weight 5. Assist patient with meals/food selection 6. Assist patient with eating 7. Allow adequate time for meals 8. Provide pleasant environment during mealtime 9. Increase social contact during mealtimes 10. Plan activities to conserve energy 11. Encourage/perform oral hygiene as appropriate 12. Encourage patient to take dietary supplement as ordered 13. Collaborate with clinical army ranger 14. Include patient/ patient's solar manufacturer's representative in decisions related to nutrition Outcome: Progressing Note: Evaluation of progress towards goal: NPO at this time Problem: Urinary Incontinence Goal: Perineal skin integrity is maintained or improved Description: INTERVENTIONS 1. Assess genitourinary system, perineal skin, labs (urinalysis), and history of incontinence to include past management, aggravating, and alleviating factors 2. Keep skin clean and dry 3. Apply skin protectant 4. Develop skin care regimen 5. Provide privacy when changing patients incontinence device to maintain their dignity 6. Consider placing an indwelling catheter 7. Collaborate with interdisciplinary team and initiate plans and interventions as needed Outcome: Progressing Note: Evaluation of progress towards goal: Burr in place, burr care provided, skin kept clean anddry Problem: Inadequate Breathing Pattern Goal: Patient will maintain effective ventilation Description: Patient's goal is: INTERVENTIONS 1. Assess and monitor vital signs, respiratory status (to include respiratory rate, depth, effort, and breath sounds), oxygen saturation, oral mucosa, tongue, pain, and labs (ABGs). 2. Collaborate with interdisciplinary team and initiate plans and interventions as needed 3. Oxygen therapy as indicated 4. Position patient for maximum ventilatory efficiency 5. Instruct patient to turn, cough, and deep breathe; encourage incentive spirometer if indicated 6. Plan activities to conserve energy 7. Encourage ambulation/activity per patient's tolerance 8. Collaborate with patient/RT to administer medications/treatments 9. Monitor lab/diagnostic results Outcome: Progressing Note: Evaluation of progress towards goal: pt on Bipap and NC * Query Response - Khang Andino MD - 02/06/2025 11:43 AM EDT Query Response Note AUTOMATED QUERY TEXT: Type of Pneumonia: The diagnosis of pneumonia has been documented. Please provide additional specificity, if known, regarding etiology or causative organism. Clinical indicators include: o2, intubation, bipap, ct, pleural effusion, intubated, cpap, fio2, satting, temp, spo2, respiratory distress, rales, wbc, saturation, chest 1 view, shortness of breath, difficulty breathing, pleural effusions, congestion, chest x-ray, opacities, cultures, blood culture, culture, sputum culture, gram stain, aspirate, gram positive cocci, gram negative, mrsa, influenza, pneumoniae, piperacillin, zosyn, vancomycin, ypoxic, pleural effusions, pneumonia, azithromycin, wheezing, gram-positive cocci, abg, hypercapnia, respiratory rate, osyn, vanco, blood cultures, staph, nasal cannula o2, gram stain gram positive cocci, staphylococcus, mackenzie albicans, nasal cannula, shortness of breath, oxygen, zithromax, chills, cough, sputum, temperature, resp 16, hospital-acquired pneumonia Options provided: -- Other - I will add my own diagnosis -- Dismiss - Not applicable / Not valid AUTOMATED QUERY RESPONSE TEXT: Healthcare associated pneumonia. Speciation data not available. Electronically signed by: Khang Andino MD 02/06/2025 11:41 AM * PT/OT/TRAINING DESIGNER - PAVAN Landeros - 02/06/2025 9:30 AM EDT Speech Therapy TRAINING DESIGNER Type of Visit: Medical deferral Reasons for Medical Deferral: ST services deferred by medical team, Respiratory status Hold d/t medical status at this time per RN. Will try back as appropriate. * Plan of Care - Cirilo Garland RCP - 02/06/2025 7:38 AM EDT Problem: Inadequate Breathing Pattern Goal: Patient will maintain effective ventilation Description: Patient's goal is: INTERVENTIONS 1. Assess and monitor vital signs, respiratory status (to include respiratory rate, depth, effort, and breath sounds), oxygen saturation, oral mucosa, tongue, pain, and labs (ABGs). 2. Collaborate with interdisciplinary team and initiate plans and interventions as needed 3. Oxygen therapy as indicated 4. Position patient for maximum ventilatory efficiency 5. Instruct patient to turn, cough, and deep breathe; encourage incentive spirometer if indicated 6. Plan activities to conserve energy 7. Encourage ambulation/activity per patient's tolerance 8. Collaborate with patient/RT to administer medications/treatments 9. Monitor lab/diagnostic results Outcome: Progressing Note: Respiratory Therapy Clinical Practice Guidelines Consult Clinical Practice Guidelines Ordered Consult Assessment: Consult, Bronchodilator Bronchodilator Indications: Diseases requiring aerosolized medication Bronchodilator Total: 2 Vital Signs FiO2 (%): 40 % Respiratory Assessment Assessment Type: Post-treatment Level of Consciousness: Alert Respiratory Pattern: Regular Chest Assessment: Chest expansion symmetrical Bilateral Breath Sounds: Clear, Diminished Readings Vt Spontaneous (mL): 358 mL Minute Ventilation (L/min): 6 L/min PIP Observed (cm H2O): 12 cm H2O Total Rate : 17 Leakage: 25 Patient Active Problem List Diagnosis senior living (current) use of anticoagulants Typical atrial flutter ([facility]) Primary hypertension Seasonal allergies Pulmonary nodule less than 6 mm determined by computed tomography of lung Anxiety COPD, severe ([facility]) Chronic respiratory failure with hypoxia and hypercapnia ([facility]) WILIAN treated with BiPAP Mixed hyperlipidemia NSTEMI (non-ST elevated myocardial infarction) ([facility]) Myoclonus Acute on chronic respiratory failure ([facility]) Last Chest XRAY: Reviewed Pulmonary History: RT Reassessment Due In: 12 hours Bronchodilator Respiratory Rate Home Therapy: Patient baseline Dyspnea Home Therapy: Patient Baseline Breath Sounds Home Therapy: Patient Baseline Respiratory History Home Therapy: Requires home therapy Oxygen to Keep SpO2 Greater Than Or Equal To 92% Home Therapy: Patient Baseline Peak Flow ([facility] Only) Home Therapy: Not Applicable Patients Current Level & Intervention: Home Therapy As at home, reconcile orders with home medsif pulmonary status is stable Evaluation of progress towards goal: Reviewed * Plan of Care - Maye Chau RN - 02/05/2025 10:23 PM EDT Problem: Pain Goal: Patient goal is pain score less than 4, able to rest, and participant in treatment plan as appropriate Description: INTERVENTIONS: 1. Encourage patient or legal solar manufacturer's representative to report early pain and ask for pain medicine when needed 2. Assess pain using appropriate pain scale and include the scale used when documenting 3. Administer analgesics based on type and severity of pain and evaluate response within appropriate time frame 4. Implement non-pharmacological measures as appropriate and evaluate response 5. Consider cultural and social influences on pain and pain management 6. Notify LIP if interventions ineffective or patient reports new pain 7. Monitor vital signs including pulse ox, end-tidal CO2 based on pain intervention 8. Reassess pain per policy 9. Teach patient or legal solar manufacturer's representative interventions for comforting Outcome: Progressing Note: Evaluation of progress towards goal: Pain being assessed using appropriate pain scale for patient. Pain scale used and documented while charting. Pain re- assessed per policy. Problem: Safety Goal: Patient will be injury free during hospitalization Description: INTERVENTIONS: 1. Assess patient's risk for falls and implement fall prevention plan of care per policy 2. Provide and maintain a safe environment 3. Proper use of double Identifiers 4. Medication administration using the 5 rights 5. Hand hygiene 6. Specimens are labeled at the bedside 7. Instruct patient/ patient solar manufacturer's representative about use of safety devices 8. Include patient/ patient solar manufacturer's representative in decisions related to safety Outcome: Progressing Note: Evaluation of progress towards goal: Area free from hazards. Safe environment being maintained. Will continue to monitor. Problem: Infection Goal: Absence of infection during hospitalization Description: INTERVENTIONS 1. Assess and monitor for signs and symptoms of infection. 2. Monitor lab/diagnostic results. 3. Monitor all insertion sites i.e., indwelling lines, tubes and drains. 4. Monitor endotracheal (as able) and nasal secretions for changes in amount and color. 5. Administer medications as ordered. 6. Instruct and encourage patient and family to use good hand hygiene technique. 7. Identify and instruct patient/patient solar manufacturer's representative in use of appropriate isolation precautionsfor identified infection/symptoms. 8. Provide and discuss with patient/patient solar manufacturer's representative on educational MDRO sheet. 9. Encourage and monitor nutritional status daily and consult army ranger if indicated. 10. Implement neutropenic guidelines as needed. Outcome: Progressing Note: Evaluation of progress towards goal: Continually monitor for signs and symptoms of infection.Monitoring all insertion sites of indwelling lines tubes and drains for signs of infection. Problem: Knowledge Deficit Goal: Patient/patient solar manufacturer's representative demonstrates understanding of disease process, treatment plan,medications, and discharge instructions Description: INTERVENTIONS 1. Complete learning assessment and assess knowledge base 2. Provide teaching at level of understanding 3. Provide teaching via preferred learning method(s) Outcome: Progressing Note: Evaluation of progress towards goal: Learning assessment being done and knowledge based beingassessed. Will continue to reinforce education. Problem: Moderate - High Risk Fall Score Description: Castillo Fall Score of =/> 25 or indicated by [facility] Assessment Goal: Patient should be free from fall Description: Interventions: 1. Lund to environment 2. Hourly rounds addressing the 4 P's (Pain, Positioning, Possessions, Potty) 3. Clear area of hazards (spills, clutter, electrical cords, unnecessary equipment) 4. Place equipment (bed & TV controls, call light, phone, urinal) within reach 5. Encourage patient to wear glasses and hearing aides as appropriate 6. Maintain bed in lowest position 7. Lock wheels on bed/wheelchair 8. Provide adequate lighting, including night light 9. Assess need for additional bedding, food/fluids, pain med's prior to sleep/routinely 10. Provide gripper slippers or personal non-skid footwear 11. Teach patient and patient solar manufacturer's representative to maintain environment for safety and engage in all aspects of fall prevention program 12. Remind patient to call for help before getting out of bed 13. Initiate bed/chair/exit alarms supportive devices as appropriate, (chair wedge, no-skid floor mat, raised edge mattress, hip protectors) 14. Locate patient bed assignment for optimal visualization 15. Evaluate and identify Safe Patient Handling Equipment needs 16. Provide supervision when out of bed or chair 17. Utilize gait belt as needed to assist with ambulation 18. Place adaptive equipment (cane, walker) within reach 19. Request patient solar manufacturer's representative bring adaptive equipment/mobility aids from home or obtain and provide as needed 20. Consult pharmacy regarding effects of med's affecting mobility, cognition, and alternatives 21. Obtain physician order for PT if risk factors associated with mobility are present 22. Obtain physician order for OT as appropriate 23. Utilize diversional activities 24. Educate patient and patient solar manufacturer's representative how to maintain a safe environment during visitationtimes (notify nurse prior to leaving bedside) 25. Consider appropriateness of medical or non-medical office asst 26. Set up voiding schedule as appropriate (every 2 hours) Outcome: Progressing Note: Evaluation of progress towards goal: Bed in lowest position with wheels locked. Hourly rounding to assess patient needs is being completed. Area is free of hazards. Problem: Potential for Compromised Skin Integrity Goal: Skin integrity is maintained or improved Description: Patient's goal is: INTERVENTIONS 1. Perform initial skin assessment on admission and as needed 2. Turn patient every 2 hours and PRN 3. Relieve pressure to bony prominences 4. Avoid shearing 5. Keep skin clean and dry 6. Alternate a full bath with partial baths for elderly 7. Apply lotion/moisturizer on skin 8. Monitor patient's hygiene practices 9. Float heels 10. Collaborate with interdisciplinary team and initiate plans and interventions as needed Outcome: Progressing Note: Evaluation of progress towards goal: Patient being turned Q2 hours prn. Hygiene completed Qshift and as needed. Maintain clean dry skin. Goal: Patient's nutritional intake is adequate Description: Patient's goal is: INTERVENTIONS 1. Assess and monitor food intake and supplements, patient food preferences, nausea, vomiting, labs, oral cavity (gums, teeth, tongue, mucosa), proper denture fit, and cultural beliefs 2. Monitor for signs of hypoglycemia and hyperglycemia 3. Collaborate with interdisciplinary team and initiate plan and interventions as ordered 4. Monitor patient's weight 5. Assist patient with meals/food selection 6. Assist patient with eating 7. Allow adequate time for meals 8. Provide pleasant environment during mealtime 9. Increase social contact during mealtimes 10. Plan activities to conserve energy 11. Encourage/perform oral hygiene as appropriate 12. Encourage patient to take dietary supplement as ordered 13. Collaborate with clinical army ranger 14. Include patient/ patient's solar manufacturer's representative in decisions related to nutrition Outcome: Progressing Note: Evaluation of progress towards goal: NPO Problem: Urinary Incontinence Goal: Perineal skin integrity is maintained or improved Description: INTERVENTIONS 1. Assess genitourinary system, perineal skin, labs (urinalysis), and history of incontinence to include past management, aggravating, and alleviating factors 2. Keep skin clean and dry 3. Apply skin protectant 4. Develop skin care regimen 5. Provide privacy when changing patients incontinence device to maintain their dignity 6. Consider placing an indwelling catheter 7. Collaborate with interdisciplinary team and initiate plans and interventions as needed Outcome: Progressing Note: Evaluation of progress towards goal: burr in place Problem: Inadequate Breathing Pattern Goal: Patient will maintain effective ventilation Description: Patient's goal is: INTERVENTIONS 1. Assess and monitor vital signs, respiratory status (to include respiratory rate, depth, effort, and breath sounds), oxygen saturation, oral mucosa, tongue, pain, and labs (ABGs). 2. Collaborate with interdisciplinary team and initiate plans and interventions as needed 3. Oxygen therapy as indicated 4. Position patient for maximum ventilatory efficiency 5. Instruct patient to turn, cough, and deep breathe; encourage incentive spirometer if indicated 6. Plan activities to conserve energy 7. Encourage ambulation/activity per patient's tolerance 8. Collaborate with patient/RT to administer medications/treatments 9. Monitor lab/diagnostic results Outcome: Progressing Note: Evaluation of progress towards goal: bipap in place * Plan of Care - Amari Galvan RCP - 02/05/2025 10:12 PM EDT Problem: Inadequate Breathing Pattern Goal: Patient will maintain effective ventilation Description: Patient's goal is: INTERVENTIONS 1. Assess and monitor vital signs, respiratory status (to include respiratory rate, depth, effort, and breath sounds), oxygen saturation, oral mucosa, tongue, pain, and labs (ABGs). 2. Collaborate with interdisciplinary team and initiate plans and interventions as needed 3. Oxygen therapy as indicated 4. Position patient for maximum ventilatory efficiency 5. Instruct patient to turn, cough, and deep breathe; encourage incentive spirometer if indicated 6. Plan activities to conserve energy 7. Encourage ambulation/activity per patient's tolerance 8. Collaborate with patient/RT to administer medications/treatments 9. Monitor lab/diagnostic results Outcome: Progressing Note: Evaluation of progress towards goal: ProgressingRespiratory Therapy Clinical Practice Guidelines Consult Clinical Practice Guidelines Ordered Consult Assessment: Consult, Bronchodilator, NIV CPAP Bronchodilator Indications: Bronchospasm/wheezing Bronchodilator Total: 2 Vital Signs Pulse: 66 Heart Rate Source: Monitor Resp: 15 SpO2: 99 % O2 Device: Bi-PAP FiO2 (%): 40 % Patient Position: Semi-fowlers Respiratory Assessment Assessment Type: Post-treatment Level of Consciousness: Alert Respiratory Pattern: Regular Chest Assessment: Chest expansion symmetrical Bilateral Breath Sounds: Diminished Readings Vt Spontaneous (mL): 320 mL Minute Ventilation (L/min): 8 L/min PIP Observed (cm H2O): 12 cm H2O Total Rate : 22 Leakage: 28 Patient Active Problem List Diagnosis senior living (current) use of anticoagulants Typical atrial flutter ([facility]) Primary hypertension Seasonal allergies Pulmonary nodule less than 6 mm determined by computed tomography of lung Anxiety COPD, severe ([facility]) Chronic respiratory failure with hypoxia and hypercapnia ([facility]) WILIAN treated with BiPAP Mixed hyperlipidemia NSTEMI (non-ST elevated myocardial infarction) ([facility]) Myoclonus Acute on chronic respiratory failure ([facility]) Last Chest XRAY: Reviewed Pulmonary History: COPD, WILIAN, Former smoker, Pulmonary nodules RT Reassessment Due In: 12 hours Bronchodilator Respiratory Rate Level 2: Less than 20 Dyspnea Level 1: No SOB Breath Sounds Level 2: Diminished and/or faint wheezes Respiratory History Level 3: Suspected pulmonary disease such as: Asthma/reactive airway disease ; Bronchitis/Emphysema (COPD) ; Cystic Fibrosis ; Severe Laryngitis/Tracheitis/Bronchiectasis ; Microbial infection ; Anesthesia related bronchospasms AND/ OR Positive risk factors including but not limited to: History of smoking ; History of pulmonary complications ; Smoke inhalation, physical/chemical trauma to the lung or upper airway Oxygen to Keep SpO2 Greater Than Or Equal To 92% Home Therapy: Patient Baseline Peak Flow ([facility] Only) Home Therapy: Not Applicable Patients Current Level & Intervention: 2 Three times daily and Q4 PRN for wheezing * Plan of Care - Rosa Rasmussen RN - 02/05/2025 1:37 PM EDT Problem: Pain Goal: Patient goal is pain score less than 4, able to rest, and participant in treatment plan as appropriate Description: INTERVENTIONS: 1. Encourage patient or legal solar manufacturer's representative to report early pain and ask for pain medicine when needed 2. Assess pain using appropriate pain scale and include the scale used when documenting 3. Administer analgesics based on type and severity of pain and evaluate response within appropriate time frame 4. Implement non-pharmacological measures as appropriate and evaluate response 5. Consider cultural and social influences on pain and pain management 6. Notify LIP if interventions ineffective or patient reports new pain 7. Monitor vital signs including pulse ox, end-tidal CO2 based on pain intervention 8. Reassess pain per policy 9. Teach patient or legal solar manufacturer's representative interventions for comforting Outcome: Progressing Note: Evaluation of progress towards goal: Patient resting comfortably at this time, will continue to monitor and assess Problem: Safety Goal: Patient will be injury free during hospitalization Description: INTERVENTIONS: 1. Assess patient's risk for falls and implement fall prevention plan of care per policy 2. Provide and maintain a safe environment 3. Proper use of double Identifiers 4. Medication administration using the 5 rights 5. Hand hygiene 6. Specimens are labeled at the bedside 7. Instruct patient/ patient solar manufacturer's representative about use of safety devices 8. Include patient/ patient solar manufacturer's representative in decisions related to safety Outcome: Progressing Note: Evaluation of progress towards goal: Patient remains free from injury at this time, will continue to provide and maintain a safe environment Problem: Infection Goal: Absence of infection during hospitalization Description: INTERVENTIONS 1. Assess and monitor for signs and symptoms of infection. 2. Monitor lab/diagnostic results. 3. Monitor all insertion sites i.e., indwelling lines, tubes and drains. 4. Monitor endotracheal (as able) and nasal secretions for changes in amount and color. 5. Administer medications as ordered. 6. Instruct and encourage patient and family to use good hand hygiene technique. 7. Identify and instruct patient/patient solar manufacturer's representative in use of appropriate isolation precautionsfor identified infection/symptoms. 8. Provide and discuss with patient/patient solar manufacturer's representative on educational MDRO sheet. 9. Encourage and monitor nutritional status daily and consult army ranger if indicated. 10. Implement neutropenic guidelines as needed. Outcome: Progressing Note: Evaluation of progress towards goal: Pt is afebrile at this time. CBC being monitored Problem: Knowledge Deficit Goal: Patient/patient solar manufacturer's representative demonstrates understanding of disease process, treatment plan,medications, and discharge instructions Description: INTERVENTIONS 1. Complete learning assessment and assess knowledge base 2. Provide teaching at level of understanding 3. Provide teaching via preferred learning method(s) Outcome: Progressing Note: Evaluation of progress towards goal: pt intubated, not able to verbalize understanding of education provided Problem: Discharge Planning Goal: Discharge to post-acute care, other facility, or home with appropriate resources Description: Patient's goal is: INTERVENTIONS 1. Conduct assessment to determine patient/family and health care team treatment goals, and need for post-acute services based on payer coverage, community resources, and patient preferences, and barriers to discharge 2. Coordinate with Social work, Care Navigation, and Utilization Review to arrange appropriate level of services according to patient's needs based on patient preference and payer coverage in collaboration with the physician and health care team 3. Address psychosocial, clinical, and financial barriers to discharge as identified in assessment in conjunction with the patient/family and health care team 4. Consult appropriate ancillary services (i.e.. PT/OT/ST, etc) as needed 5. Communicate with and update the patient/family, physician, and health care team regarding progress on the discharge plan 6. Identify discharge learning needs (meds, wound care, etc). 7. Arrange for needed discharge transportation as appropriate Outcome: Progressing Note: Evaluation of progress towards goal: pt in ICU Problem: Moderate - High Risk Fall Score Description: Castillo Fall Score of =/> 25 or indicated by [facility] Assessment Goal: Patient should be free from fall Description: Interventions: 1. [place] to environment 2. Hourly rounds addressing the 4 P's (Pain, Positioning, Possessions, Potty) 3. Clear area of hazards (spills, clutter, electrical cords, unnecessary equipment) 4. Place equipment (bed & TV controls, call light, phone, urinal) within reach 5. Encourage patient to wear glasses and hearing aides as appropriate 6. Maintain bed in lowest position 7. Lock wheels on bed/wheelchair 8. Provide adequate lighting, including night light 9. Assess need for additional bedding, food/fluids, pain med's prior to sleep/routinely 10. Provide gripper slippers or personal non-skid footwear 11. Teach patient and patient solar manufacturer's representative to maintain environment for safety and engage in all aspects of fall prevention program 12. Remind patient to call for help before getting out of bed 13. Initiate bed/chair/exit alarms supportive devices as appropriate, (chair wedge, no-skid floor mat, raised edge mattress, hip protectors) 14. Locate patient bed assignment for optimal visualization 15. Evaluate and identify Safe Patient Handling Equipment needs 16. Provide supervision when out of bed or chair 17. Utilize gait belt as needed to assist with ambulation 18. Place adaptive equipment (cane, walker) within reach 19. Request patient solar manufacturer's representative bring adaptive equipment/mobility aids from home or obtain and provide as needed 20. Consult pharmacy regarding effects of med's affecting mobility, cognition, and alternatives 21. Obtain physician order for PT if risk factors associated with mobility are present 22. Obtain physician order for OT as appropriate 23. Utilize diversional activities 24. Educate patient and patient solar manufacturer's representative how to maintain a safe environment during visitationtimes (notify nurse prior to leaving bedside) 25. Consider appropriateness of medical or non-medical office asst 26. Set up voiding schedule as appropriate (every 2 hours) Outcome: Progressing Note: Evaluation of progress towards goal: pt remains free from falls Problem: Potential for Compromised Skin Integrity Goal: Skin integrity is maintained or improved Description: Patient's goal is: INTERVENTIONS 1. Perform initial skin assessment on admission and as needed 2. Turn patient every 2 hours and PRN 3. Relieve pressure to bony prominences 4. Avoid shearing 5. Keep skin clean and dry 6. Alternate a full bath with partial baths for elderly 7. Apply lotion/moisturizer on skin 8. Monitor patient's hygiene practices 9. Float heels 10. Collaborate with interdisciplinary team and initiate plans and interventions as needed Outcome: Progressing Note: Evaluation of progress towards goal: pt turned every 2 hours, skin kept clean and dry, heels elevated off bed Goal: Patient's nutritional intake is adequate Description: Patient's goal is: INTERVENTIONS 1. Assess and monitor food intake and supplements, patient food preferences, nausea, vomiting, labs, oral cavity (gums, teeth, tongue, mucosa), proper denture fit, and cultural beliefs 2. Monitor for signs of hypoglycemia and hyperglycemia 3. Collaborate with interdisciplinary team and initiate plan and interventions as ordered 4. Monitor patient's weight 5. Assist patient with meals/food selection 6. Assist patient with eating 7. Allow adequate time for meals 8. Provide pleasant environment during mealtime 9. Increase social contact during mealtimes 10. Plan activities to conserve energy 11. Encourage/perform oral hygiene as appropriate 12. Encourage patient to take dietary supplement as ordered 13. Collaborate with clinical army ranger 14. Include patient/ patient's solar manufacturer's representative in decisions related to nutrition Outcome: Progressing Note: Evaluation of progress towards goal: NPO at this time Problem: Urinary Incontinence Goal: Perineal skin integrity is maintained or improved Description: INTERVENTIONS 1. Assess genitourinary system, perineal skin, labs (urinalysis), and history of incontinence to include past management, aggravating, and alleviating factors 2. Keep skin clean and dry 3. Apply skin protectant 4. Develop skin care regimen 5. Provide privacy when changing patients incontinence device to maintain their dignity 6. Consider placing an indwelling catheter 7. Collaborate with interdisciplinary team and initiate plans and interventions as needed Outcome: Progressing Note: Evaluation of progress towards goal: burr in place * Plan of Care - Cirilo Garland RCP - 02/05/2025 1:09 PM EDT Problem: Inadequate Breathing Pattern Goal: Patient will achieve/maintain normal respiratory rate/effort Description: Patient's goal is: INTERVENTIONS 1. Assess and monitor respiratory rate, effort, breathing pattern, and oxygenation 2. Monitor patient for restlessness, anxiety, air hunger 3. Assess physical activity tolerance 4. Assess tobacco history; ask, advise, and refer as appropriate 5. Collaborate with interdisciplinary team and initiate plans/interventions as needed 02/05/2025 [id number] by LANCE Kerr Outcome: Completed Note: Evaluation of progress towards goal: 02/05/2025 0924 by LANCE Kerr Outcome: Progressing Note: Respiratory Therapy Clinical Practice Guidelines Consult Clinical Practice Guidelines Ordered Consult Assessment: Consult, Bronchodilator Bronchodilator Indications: Bronchospasm/wheezing Bronchodilator Total: 1 Respiratory Assessment Assessment Type: Subsequent assessment Level of Consciousness: Responds to Voice Respiratory Pattern: Regular Chest Assessment: Chest expansion symmetrical Bilateral Breath Sounds: Clear, Diminished Readings Vt Spontaneous (mL): 370 mL Minute Ventilation (L/min): 4.6 L/min PIP Observed (cm H2O): 23 cm H2O Total Rate : 12 Patient Active Problem List Diagnosis senior living (current) use of anticoagulants Typical atrial flutter ([facility]) Primary hypertension Seasonal allergies Pulmonary nodule less than 6 mm determined by computed tomography of lung Anxiety COPD, severe ([facility]) Chronic respiratory failure with hypoxia and hypercapnia ([facility]) WILIAN treated with BiPAP Mixed hyperlipidemia NSTEMI (non-ST elevated myocardial infarction) ([facility]) Myoclonus Acute on chronic respiratory failure ([facility]) Last Chest XRAY: Reviewed Pulmonary History: RT Reassessment Due In: 12 hours Mechanical Ventilator Broncho-Pulmonary Hygiene Breath Sounds Level 1: Slightly Diminished or clear Chest X-Ray Level 1: Possible signs of consolidation and/or atelectasis or clear Sputum Production Level 1: None or small amount of thin or watery secretions with suctioning History & Physical Level 1: None New onset of bronchitis or existing chronic pulmonary condition. * (not in an exacerbation) Patients Current Level & Intervention: Level 1: No BP hygiene indicated. Continue suctioning every 4 hours Intervention Mode Selected: Mechanical Ventilator Bronchodilator Breath Sounds Level 1: Clear or occasional minimal wheezing Respiratory History Level 1: None Peak Pressures Level 1: Less than 25 cm H2O Peak Minus Plateau Pressure Level 1: 3 cm H2O or less Other Considerations for adventitious breath sounds, elevated peak pressures and peak/plateau difference. Endotracheal tube too small, tube kinked/Foreign body in the lumen Partial cuff herniation Secretions and/or mucus plugging Tracheal malacia or stenosis Patients Current Level & Intervention: 1 Every 4 hours PRN for wheezing Evaluation of progress towards goal: Reviewed * Plan of Care - Cirilo Garland RCP - 02/05/2025 9:25 AM EDT Problem: Inadequate Breathing Pattern Goal: Patient will achieve/maintain normal respiratory rate/effort Description: Patient's goal is: INTERVENTIONS 1. Assess and monitor respiratory rate, effort, breathing pattern, and oxygenation 2. Monitor patient for restlessness, anxiety, air hunger 3. Assess physical activity tolerance 4. Assess tobacco history; ask, advise, and refer as appropriate 5. Collaborate with interdisciplinary team and initiate plans/interventions as needed Outcome: Progressing Note: Respiratory Therapy Clinical Practice Guidelines Consult Clinical Practice Guidelines Ordered Consult Assessment: Consult, Bronchodilator Bronchodilator Indications: Bronchospasm/wheezing Bronchodilator Total: 1 Respiratory Assessment Assessment Type: Subsequent assessment Level of Consciousness: Responds to Voice Respiratory Pattern: Regular Chest Assessment: Chest expansion symmetrical Bilateral Breath Sounds: Clear, Diminished Readings Vt Spontaneous (mL): 370 mL Minute Ventilation (L/min): 4.6 L/min PIP Observed (cm H2O): 23 cm H2O Total Rate : 12 Patient Active Problem List Diagnosis manager terminal (current) use of anticoagulants Typical atrial flutter ([facility]) Primary hypertension Seasonal allergies Pulmonary nodule less than 6 mm determined by computed tomography of lung Anxiety COPD, severe ([facility]) Chronic respiratory failure with hypoxia and hypercapnia ([facility]) WILIAN treated with BiPAP Mixed hyperlipidemia NSTEMI (non-ST elevated myocardial infarction) ([facility]) Myoclonus Acute on chronic respiratory failure ([facility]) Last Chest XRAY: Reviewed Pulmonary History: RT Reassessment Due In: 12 hours Mechanical Ventilator Broncho-Pulmonary Hygiene Breath Sounds Level 1: Slightly Diminished or clear Chest X-Ray Level 1: Possible signs of consolidation and/or atelectasis or clear Sputum Production Level 1: None or small amount of thin or watery secretions with suctioning History & Physical Level 1: None New onset of bronchitis or existing chronic pulmonary condition. * (not in an exacerbation) Patients Current Level & Intervention: Level 1: No BP hygiene indicated. Continue suctioning every 4 hours Intervention Mode Selected: Mechanical Ventilator Bronchodilator Breath Sounds Level 1: Clear or occasional minimal wheezing Respiratory History Level 1: None Peak Pressures Level 1: Less than 25 cm H2O Peak Minus Plateau Pressure Level 1: 3 cm H2O or less Other Considerations for adventitious breath sounds, elevated peak pressures and peak/plateau difference. Endotracheal tube too small, tube kinked/Foreign body in the lumen Partial cuff herniation Secretions and/or mucus plugging Tracheal malacia or stenosis Patients Current Level & Intervention: 1 Every 4 hours PRN for wheezing Evaluation of progress towards goal: Reviewed * Plan of Care - Rosa Rasmussen RN - 02/05/2025 7:17 AM EDT Problem: Pain Goal: Patient goal is pain score less than 4, able to rest, and participant in treatment plan as appropriate Description: INTERVENTIONS: 1. Encourage patient or legal solar manufacturer's representative to report early pain and ask for pain medicine when needed 2. Assess pain using appropriate pain scale and include the scale used when documenting 3. Administer analgesics based on type and severity of pain and evaluate response within appropriate time frame 4. Implement non-pharmacological measures as appropriate and evaluate response 5. Consider cultural and social influences on pain and pain management 6. Notify LIP if interventions ineffective or patient reports new pain 7. Monitor vital signs including pulse ox, end-tidal CO2 based on pain intervention 8. Reassess pain per policy 9. Teach patient or legal solar manufacturer's representative interventions for comforting Outcome: Progressing Note: Evaluation of progress towards goal: Patient resting comfortably at this time, will continue to monitor and assess Problem: Safety Goal: Patient will be injury free during hospitalization Description: INTERVENTIONS: 1. Assess patient's risk for falls and implement fall prevention plan of care per policy 2. Provide and maintain a safe environment 3. Proper use of double Identifiers 4. Medication administration using the 5 rights 5. Hand hygiene 6. Specimens are labeled at the bedside 7. Instruct patient/ patient solar manufacturer's representative about use of safety devices 8. Include patient/ patient solar manufacturer's representative in decisions related to safety Outcome: Progressing Note: Evaluation of progress towards goal: Patient remains free from injury at this time, will continue to provide and maintain a safe environment Problem: Infection Goal: Absence of infection during hospitalization Description: INTERVENTIONS 1. Assess and monitor for signs and symptoms of infection. 2. Monitor lab/diagnostic results. 3. Monitor all insertion sites i.e., indwelling lines, tubes and drains. 4. Monitor endotracheal (as able) and nasal secretions for changes in amount and color. 5. Administer medications as ordered. 6. Instruct and encourage patient and family to use good hand hygiene technique. 7. Identify and instruct patient/patient solar manufacturer's representative in use of appropriate isolation precautionsfor identified infection/symptoms. 8. Provide and discuss with patient/patient solar manufacturer's representative on educational MDRO sheet. 9. Encourage and monitor nutritional status daily and consult army ranger if indicated. 10. Implement neutropenic guidelines as needed. Outcome: Progressing Note: Evaluation of progress towards goal: Pt is afebrile at this time. CBC being monitored Problem: Knowledge Deficit Goal: Patient/patient solar manufacturer's representative demonstrates understanding of disease process, treatment plan,medications, and discharge instructions Description: INTERVENTIONS 1. Complete learning assessment and assess knowledge base 2. Provide teaching at level of understanding 3. Provide teaching via preferred learning method(s) Outcome: Progressing Note: Evaluation of progress towards goal: pt intubated, not able to verbalize understanding of education provided Problem: Discharge Planning Goal: Discharge to post-acute care, other facility, or home with appropriate resources Description: Patient's goal is: INTERVENTIONS 1. Conduct assessment to determine patient/family and health care team treatment goals, and need for post-acute services based on payer coverage, community resources, and patient preferences, and barriers to discharge 2. Coordinate with Social work, Care Navigation, and Utilization Review to arrange appropriate level of services according to patient's needs based on patient preference and payer coverage in collaboration with the physician and health care team 3. Address psychosocial, clinical, and financial barriers to discharge as identified in assessment in conjunction with the patient/family and health care team 4. Consult appropriate ancillary services (i.e.. PT/OT/ST, etc) as needed 5. Communicate with and update the patient/family, physician, and health care team regarding progress on the discharge plan 6. Identify discharge learning needs (meds, wound care, etc). 7. Arrange for needed discharge transportation as appropriate Outcome: Progressing Note: Evaluation of progress towards goal: pt in ICU Problem: Moderate - High Risk Fall Score Description: Castillo Fall Score of =/> 25 or indicated by [facility] Assessment Goal: Patient should be free from fall Description: Interventions: 1. [place] to environment 2. Hourly rounds addressing the 4 P's (Pain, Positioning, Possessions, Potty) 3. Clear area of hazards (spills, clutter, electrical cords, unnecessary equipment) 4. Place equipment (bed & TV controls, call light, phone, urinal) within reach 5. Encourage patient to wear glasses and hearing aides as appropriate 6. Maintain bed in lowest position 7. Lock wheels on bed/wheelchair 8. Provide adequate lighting, including night light 9. Assess need for additional bedding, food/fluids, pain med's prior to sleep/routinely 10. Provide gripper slippers or personal non-skid footwear 11. Teach patient and patient solar manufacturer's representative to maintain environment for safety and engage in all aspects of fall prevention program 12. Remind patient to call for help before getting out of bed 13. Initiate bed/chair/exit alarms supportive devices as appropriate, (chair wedge, no-skid floor mat, raised edge mattress, hip protectors) 14. Locate patient bed assignment for optimal visualization 15. Evaluate and identify Safe Patient Handling Equipment needs 16. Provide supervision when out of bed or chair 17. Utilize gait belt as needed to assist with ambulation 18. Place adaptive equipment (cane, walker) within reach 19. Request patient solar manufacturer's representative bring adaptive equipment/mobility aids from home or obtain and provide as needed 20. Consult pharmacy regarding effects of med's affecting mobility, cognition, and alternatives 21. Obtain physician order for PT if risk factors associated with mobility are present 22. Obtain physician order for OT as appropriate 23. Utilize diversional activities 24. Educate patient and patient solar manufacturer's representative how to maintain a safe environment during visitationtimes (notify nurse prior to leaving bedside) 25. Consider appropriateness of medical or non-medical office asst 26. Set up voiding schedule as appropriate (every 2 hours) Outcome: Progressing Note: Evaluation of progress towards goal: pt remains free from falls Problem: Safety - Medical Restraint Goal: Remains free of injury from restraints (Restraint for Interference with Manager Dialysis) Description: INTERVENTIONS: 1. Determine that other, less restrictive measures have been tried or would not be effective beforeapplying the restraint 2. Evaluate the patient's condition at the time of restraint application 3. Inform patient/family regarding the reason for restraint 4. Q2H: Monitor safety, Vital signs, psychosocial status, signs of injury, skin integrity, circulation, neurovascular status in affected extremities, respiratory status, comfort, nutrition and hydration, hygiene, ROM, elimination needs 5. Doctor will be notified of restraint 6. RN properly applies restraints per physician order Outcome: Progressing Note: Evaluation of progress towards goal: pt remains free of injury from restraints. Q2h safety checks continue. Goal: Free from restraint(s) (Restraint for Interference with Manager Dialysis) Description: INTERVENTIONS: 1. ONCE/SHIFT or MINIMUM Q12H: Assess and document the continuing need for restraints 2. Order is valid for the duration of the episode of care 3. Discontinue at the earliest possible time once the reason for restraints no longer exists 4. Identify and implement measures to help patient regain control 5. Food, fluids, and toilet offered at a minimum of every 2 hours 6. RN modifies the patient's plan of care by entering a problem statement related to safety; individualizes the safety outcome Outcome: Progressing Note: Evaluation of progress towards goal: Patient remains free from injury, will continue to monitor at least every 2 hours Problem: Potential for Compromised Skin Integrity Goal: Skin integrity is maintained or improved Description: Patient's goal is: INTERVENTIONS 1. Perform initial skin assessment on admission and as needed 2. Turn patient every 2 hours and PRN 3. Relieve pressure to bony prominences 4. Avoid shearing 5. Keep skin clean and dry 6. Alternate a full bath with partial baths for elderly 7. Apply lotion/moisturizer on skin 8. Monitor patient's hygiene practices 9. Float heels 10. Collaborate with interdisciplinary team and initiate plans and interventions as needed Outcome: Progressing Note: Evaluation of progress towards goal: pt turned every 2 hours, skin kept clean and dry, heels elevated off bed Goal: Patient's nutritional intake is adequate Description: Patient's goal is: INTERVENTIONS 1. Assess and monitor food intake and supplements, patient food preferences, nausea, vomiting, labs, oral cavity (gums, teeth, tongue, mucosa), proper denture fit, and cultural beliefs 2. Monitor for signs of hypoglycemia and hyperglycemia 3. Collaborate with interdisciplinary team and initiate plan and interventions as ordered 4. Monitor patient's weight 5. Assist patient with meals/food selection 6. Assist patient with eating 7. Allow adequate time for meals 8. Provide pleasant environment during mealtime 9. Increase social contact during mealtimes 10. Plan activities to conserve energy 11. Encourage/perform oral hygiene as appropriate 12. Encourage patient to take dietary supplement as ordered 13. Collaborate with clinical army ranger 14. Include patient/ patient's solar manufacturer's representative in decisions related to nutrition Outcome: Progressing Note: Evaluation of progress towards goal: NPO at this time Problem: Urinary Incontinence Goal: Perineal skin integrity is maintained or improved Description: INTERVENTIONS 1. Assess genitourinary system, perineal skin, labs (urinalysis), and history of incontinence to include past management, aggravating, and alleviating factors 2. Keep skin clean and dry 3. Apply skin protectant 4. Develop skin care regimen 5. Provide privacy when changing patients incontinence device to maintain their dignity 6. Consider placing an indwelling catheter 7. Collaborate with interdisciplinary team and initiate plans and interventions as needed Outcome: Progressing Note: Evaluation of progress towards goal: burr in place * Significant Event - Diego Mars APRN-MASTER PILOT - 02/04/2025 3:59 PM EDT Images from the original note were not included. [facility] - Electrophysiology [address] [place] [address] SIGNIFICANT EVENT Brief EP cardiology note EP was consulted for concerns of nonsustained VT. Has a Oliveros dual-chamber pacemaker with left bundle branch area RV lead placement along with AV node ablation for uncontrolled AFib/flutter RVR completed 01/28/2025. Preserved EF on surface echo 01/25/2025 Due to paroxysmal nature though RVR episodes, continued on flecainide and beta- david with long-term goal of sinus rhythm. Patient presented from nursing facility found unresponsive which included intubation for respiratory protection and life flighted [facility]. EP consulted due to concernsof VT though careful review of telemetry since admission and presenting EKGs shows no ventricular tachycardia. Appropriate ventricular paced 80-90 beats per minute with underlying atrial flutter. Patient's left infraclavicular device site does have some mild ecchymosis also noted laterally and inferior to pocket site. No concerns of active bleeding and likely residual after device implant. The incision line is well approximated. There is no signs of infection Will have device interrogation completed this afternoon. If no ventricular disturbances, no changesfrom EP Cardiology standpoint. Discussed with attending I will have contacted the [employer] pacer rep regarding interrogation Discussed with nursing Continue flecainide/beta-david ANGELICA ESQUIVLE [facility] - Electrophysiology Addendum. Device interrogation does not show any tachycardic episodes, appropriate ventricular pacing and ongoing atrial flutter. Lead parameters stable ANGELICA Esquivel 02/04/25 1609 ANGELICA Esquivel 02/04/25 1637 documented in this encounter Plan of Treatment Upcoming Encounters Date Type Department Care Team (Late st Contact Info) Description 03/01/2025 2:00 PM EDT Clinical Support [facility] [address] [place] [address] Scheduled Orders Name Type Priority Associated Diagnoses Orde r Schedule CBC auto differential Lab Routine Coagulase negative Staphylococcus bacteremia Once a week for 2 Occurrences starting 02/09/2025 until 02/09/2026 Basic Metabolic Panel Lab Routine Coagulase negative Staphylococcus bacteremia Once a week for 2 Occurrences starting 02/09/2025 until 02/09/2026 Vancomycin, trough Lab Routine Coagulase negative Staphylococcus bacteremia Once a week for 2 Occurrences starting 02/09/2025 until 02/09/2026 Blood culture Microbiology Routine Coagulase negative Staphylococcus bacteremia 2 for 2 Occurrences starting 02/12/2025 until 02/12/2026 Scheduled Referrals Name Type Priority Associated Diagnoses Order Schedule Ambulatory referral to Anticoagulation Monitoring Outpatient Referral Routine manager terminal (current) use of anticoagulants Typical atrial flutter (CMS-HCC) 1 Occurrences starting 02/12/2025 until 02/12/2026 documented as of this encounter Goals Goal Patient Goal Type Associated Problems Recent Progress Patient-Stated? Author SNF General Yes Rajesh Paris, RN Note: Evaluation of progress towards goal: Progress to a safe discharge documented as of this encounter Procedures Procedure Name Priority Date/Time Associated Diagnosis Comments BLOOD GAS, ARTERIAL Routine 02/12/2025 1 0:03 AM EDT CBC WITH AUTO DIFFERENTIAL Routine 02/12/2025 4:38 AM EDT PROTIME & INR Routine 02/12/2025 4:38 AM EDT PHOSPHORUS Routine 02/12/2025 4:38 AM EDT MAGNESIUM Routine 02/12/2025 4:38 AM EDT COMPREHENSIVE METABOLIC PANEL Routine 02/12/2025 4:38 AM EDT POTASSIUM Routine 02/11/2025 3:03 PM EDT MAGNESIUM Routine 02/11/2025 3:03 PM EDT BLOOD GAS, ARTERIAL Routine 02/11/2025 1 1:20 AM EDT FL SWALLOW MOTILITY FUNCTION Routine 02/11/2025 10:37 AM EDT BIPAP/CPAP/AUTOPAP Routine 02/11/2025 8: 00 AM EDT VANCOMYCIN, PEAK Routine 02/11/2025 7:58 AM EDT CBC WITH AUTO DIFFERENTIAL Routine 02/11/2025 5:19 AM EDT PROTIME & INR Routine 02/11/2025 5:19 AM EDT PHOSPHORUS Routine 02/11/2025 5:19 AM EDT MAGNESIUM Routine 02/11/2025 5:19 AM EDT VANCOMYCIN, TROUGH Routine 02/11/2025 5: 19 AM EDT COMPREHENSIVE METABOLIC PANEL Routine 02/11/2025 5:19 AM EDT BIPAP/CPAP/AUTOPAP Routine 02/10/2025 8: 00 PM EDT BLOOD GAS, ARTERIAL Routine 02/10/2025 9 :38 AM EDT XR CHEST 1 VW Routine 02/10/2025 9:12 AM EDT BIPAP/CPAP/AUTOPAP Routine 02/10/2025 8: 00 AM EDT CBC WITH AUTO DIFFERENTIAL Routine 02/10/2025 5:18 AM EDT PROTIME & INR Routine 02/10/2025 5:18 AM EDT PHOSPHORUS Routine 02/10/2025 5:18 AM EDT MAGNESIUM Routine 02/10/2025 5:18 AM EDT COMPREHENSIVE METABOLIC PANEL Routine 02/10/2025 5:18 AM EDT BIPAP/CPAP/AUTOPAP Routine 02/09/2025 8: 00 PM EDT BIPAP/CPAP/AUTOPAP Routine 02/09/2025 6: 09 PM EDT BIPAP/CPAP/AUTOPAP Routine 02/09/2025 6: 09 PM EDT XR CHEST 1 VW STAT 02/09/2025 3:15 PM EDT XR CHEST 1 VW STAT 02/09/2025 1:04 PM EDT VANCOMYCIN, PEAK Routine 02/09/2025 5:05 AM EDT CBC WITH AUTO DIFFERENTIAL Routine 02/09/2025 1:17 AM EDT PROTIME & INR Routine 02/09/2025 1:17 AM EDT HEPARIN ANTI XA, UNFRACTIONATED Routine 02/09/2025 1:17 AM EDT PHOSPHORUS Routine 02/09/2025 1:17 AM EDT MAGNESIUM Routine 02/09/2025 1:17 AM EDT VANCOMYCIN, TROUGH Routine 02/09/2025 1: 17 AM EDT COMPREHENSIVE METABOLIC PANEL Routine 02/09/2025 1:17 AM EDT US CHEST LT Routine 02/08/2025 1:51 PM EDT ECHO COMPLETE WO CONTRAST Routine 02/08/2025 12:44 PM EDT IONIZED MAGNESIUM Routine 02/08/2025 12: 29 PM EDT POTASSIUM Routine 02/08/2025 12:29 PM EDT BLOOD GAS, ARTERIAL Routine 02/08/2025 1 1:31 AM EDT CBC WITH AUTO DIFFERENTIAL Routine 02/08/2025 2:02 AM EDT PROTIME & INR Routine 02/08/2025 2:02 AM EDT HEPARIN ANTI XA, UNFRACTIONATED Routine 02/08/2025 2:02 AM EDT PHOSPHORUS Routine 02/08/2025 2:02 AM EDT MAGNESIUM Routine 02/08/2025 2:02 AM EDT COMPREHENSIVE METABOLIC PANEL Routine 02/08/2025 2:02 AM EDT VENTILATION Routine 02/08/2025 12:00 AM EDT HEPARIN ANTI XA, UNFRACTIONATED Routine 02/07/2025 10:03 PM EDT VENTILATION Routine 02/07/2025 8:00 PM EDT HEPARIN ANTI XA, UNFRACTIONATED Routine 02/07/2025 4:33 PM EDT VANCOMYCIN, PEAK Routine 02/07/2025 4:33 PM EDT VANCOMYCIN, TROUGH Routine 02/07/2025 11 :42 AM EDT HEMOGLOBIN AND HEMATOCRIT, BLOOD Routine 02/07/2025 9:11 AM EDT HEPARIN ANTI XA, UNFRACTIONATED Routine 02/07/2025 9:11 AM EDT POTASSIUM Routine 02/07/2025 9:11 AM EDT FL SWALLOW MOTILITY FUNCTION Routine 02/07/2025 8:47 AM EDT RESP PULMONARY DISEASE PATIENT Routine 02/07/2025 8:00 AM EDT TRANSFUSE RED BLOOD CELLS Routine 02/07/2025 5:55 AM EDT TYPE AND SCREEN Routine 02/07/2025 4:02 AM EDT CROSSMATCH RBC Routine 02/07/2025 4:00 AM EDT VENTILATION Routine 02/07/2025 4:00 AM EDT CBC WITH AUTO DIFFERENTIAL Routine 02/07/2025 2:17 AM EDT PROTIME & INR Routine 02/07/2025 2:17 AM EDT PHOSPHORUS Routine 02/07/2025 2:17 AM EDT MAGNESIUM Routine 02/07/2025 2:17 AM EDT COMPREHENSIVE METABOLIC PANEL Routine 02/07/2025 2:17 AM EDT REPEATED ABORH Routine 02/07/2025 2:00 AM EDT HEPARIN ANTI XA, UNFRACTIONATED Routine 02/07/2025 12:05 AM EDT VENTILATION Routine 02/07/2025 12:00 AM EDT VENTILATION Routine 02/06/2025 8:00 PM EDT HEPARIN ANTI XA, UNFRACTIONATED Routine 02/06/2025 5:32 PM EDT HEPARIN ANTI XA, UNFRACTIONATED Routine 02/06/2025 11:15 AM EDT POTASSIUM Routine 02/06/2025 11:15 AM EDT BLOOD GAS, ARTERIAL Routine 02/06/2025 8 :30 AM EDT VENTILATION Routine 02/06/2025 8:00 AM EDT RESP PULMONARY DISEASE PATIENT Routine 02/06/2025 7:44 AM EDT POTASSIUM Routine 02/06/2025 7:07 AM EDT VENTILATION Routine 02/06/2025 4:00 AM EDT CBC WITH AUTO DIFFERENTIAL Routine 02/06/2025 2:01 AM EDT APTT Add-On 02/06/2025 2:01 AM EDT PROTIME & INR Routine 02/06/2025 2:01 AM EDT PHOSPHORUS Routine 02/06/2025 2:01 AM EDT MAGNESIUM Routine 02/06/2025 2:01 AM EDT COMPREHENSIVE METABOLIC PANEL Routine 02/06/2025 2:01 AM EDT VENTILATION Routine 02/06/2025 12:00 AM EDT VENTILATION Routine 02/05/2025 8:00 PM EDT VENTILATION Routine 02/05/2025 4:32 PM EDT VENTILATION Routine 02/05/2025 4:32 PM EDT VENTILATION Routine 02/05/2025 4:32 PM EDT VENTILATION Routine 02/05/2025 4:32 PM EDT VENTILATION Routine 02/05/2025 4:32 PM EDT POTASSIUM Routine 02/05/2025 12:51 PM EDT BLOOD CULTURE STAT 02/05/2025 12:31 PM EDT BLOOD CULTURE STAT 02/05/2025 12:31 PM EDT EXTUBATION Routine 02/05/2025 12:23 PM EDT B-TYPE NATRIURETIC PEPTIDE Routine 02/05/2025 10:11 AM EDT POTASSIUM Routine 02/05/2025 8:01 AM EDT XR CHEST 1 VW Routine 02/05/2025 6:15 AM EDT BLOOD GAS, ARTERIAL Routine 02/05/2025 4 :35 AM EDT RESP ARTERIAL LINE SETUP Routine 02/05/2025 4:00 AM EDT CBC WITH AUTO DIFFERENTIAL Routine 02/05/2025 2:52 AM EDT PROTIME & INR Routine 02/05/2025 2:52 AM EDT PHOSPHORUS Routine 02/05/2025 2:52 AM EDT MAGNESIUM Routine 02/05/2025 2:52 AM EDT COMPREHENSIVE METABOLIC PANEL Routine 02/05/2025 2:52 AM EDT ECG 12-LEAD Routine 02/05/2025 1:10 AM EDT RESP ARTERIAL LINE SETUP Routine 02/05/2025 12:00 AM EDT IONIZED MAGNESIUM Routine 02/04/2025 10: 32 PM EDT PHOSPHORUS Routine 02/04/2025 8:02 PM EDT RESP ARTERIAL LINE SETUP Routine 02/04/2025 8:00 PM EDT TROP I, HIGH SENSITIVITY 1 HOUR STAT 02/04/2025 5:55 PM EDT POTASSIUM Routine 02/04/2025 5:55 PM EDT RESP ARTERIAL LINE SETUP Routine 02/04/2025 4:43 PM EDT VENTILATION Routine 02/04/2025 4:43 PM EDT VENTILATION Routine 02/04/2025 4:43 PM EDT VENTILATION Routine 02/04/2025 4:43 PM EDT ECG 12-LEAD STAT 02/04/2025 3:02 PM EDT BLOOD CULTURE IDENTIFICATION PANEL Routine 02/04/2025 1:35 PM EDT BLOOD CULTURE STAT 02/04/2025 1:35 PM EDT BLOOD CULTURE STAT 02/04/2025 1:35 PM EDT XR CHEST 1 VW STAT 02/04/2025 1:01 PM EDT BLOOD GAS, ARTERIAL Routine 02/04/2025 1 2:13 PM EDT TROPONIN I, HIGH SENSITIVITY 0 HOUR STAT 02/04/2025 12:08 PM EDT TROPONIN I, HIGH SENSITIVITY 0 HOUR STAT 02/04/2025 12:08 PM EDT LACTATE W/ REFLEX STAT 02/04/2025 12: 08 PM EDT THYROID PROFILE INCLUDES TSH FT4 Routine 02/04/2025 12:08 PM EDT CBC WITH AUTO DIFFERENTIAL Routine 02/04/2025 12:08 PM EDT IRON AND TIBC Routine 02/04/2025 12:08 PM EDT PROTIME & INR Routine 02/04/2025 12:08 PM EDT PHOSPHORUS Routine 02/04/2025 12:08 PM EDT B-TYPE NATRIURETIC PEPTIDE Routine 02/04/2025 12:08 PM EDT MAGNESIUM Routine 02/04/2025 12:08 PM EDT HEMOGLOBIN A1C Routine 02/04/2025 12:08 PM EDT FOLATE Routine 02/04/2025 12:08 PM EDT FERRITIN Routine 02/04/2025 12:08 PM EDT VITAMIN B12 Routine 02/04/2025 12:08 PM EDT COMPREHENSIVE METABOLIC PANEL Routine 02/04/2025 12:08 PM EDT ECG 12-LEAD Routine 02/04/2025 11:59 AM EDT MRSA PCR NASAL SWAB Routine 02/04/2025 1 1:47 AM EDT RESP PATHOGENS PANEL/SARS-COV-2 STAT 02/04/2025 11:47 AM EDT LOWER RESP CULTURE SPUTUM CULTURE INC GRAM STAIN Routine 02/04/2025 11:47 AM EDT URINALYSIS Routine 02/04/2025 11:43 AM EDT URINE CULTURE Routine 02/04/2025 11:43 AM EDT BEDSIDE GLUCOSE Routine 02/04/2025 11:24 AM EDT documented in this encounter Results * (ABNORMAL) Blood Gas, Arterial (02/12/2025 10:03 AM EDT) Sample type ARTERIAL 02/12/2025 10:12 AM EDT [facility] pH, Arterial 7.342(L) 7.350 - 7.450 02/12/2025 10:12 AM EDT [facility] pCO2, Arterial 91.5(HH) 35.0 - 45.0 mmHg 02/12/2025 10:12 AM EDT [facility] PO2, Arterial 102(H) 80 - 100 mmHg 02/12/2025 10:12 AM EDT [facility] Base, Excess 20.0(H) 0.0 - 2.0 mmol/L 02/12/2025 10:12 AM T [facility] HCO3, Arterial 49.6(H) 22.0 - 26.0 mmol/L 02/12/2025 10:12 AM T [facility] %O2 Saturation, Arterial 97.0 >90.0 % 02/12/2025 10:12 AM EDT [facility] Diego's test Pass 02/12/2025 10:12 AM EDT [facility] SPO2 100 % 02/12/2025 10:12 AM [facility] Sample site L Rad 02/12/2025 10:12 AM [facility] Insp. O2 conc. 32 % 02/12/2025 10:12 AM [facility] Source Of Oxygen NC 02/12/2025 10:12 AM T [facility] arterial (Blood, Arterial) 02/12/2025 10:03 AM EDT 02/12/2025 10:12 AM EDT us Sha Garcia MD LAB BLOOD ORDERABLES Final Resul t [facility] [address] [place] [address], * (ABNORMAL) CBC auto differential (02/12/2025 4:38 AM EDT) WBC 6.1 4 - 11 x10E9/L 02/12/2025 5:52 AM EDT [facility] RBC Count 3.26(L) 3.8 - 5.2 X10E12/L 02/12/2025 5:52 AM EDT [facility] Hemoglobin 9.5(L) 11.7 - 15.5 g/dL 02/12/2025 5:52 AM EDT [facility] Hematocrit 29.9(L) 35 - 47 % 02/12/2025 5:52 AM EDT [facility] MCV 92 80 - 100 fL 02/12/2025 5:52 AM EDT [facility] MCH 29.1 27 - 34 pg 02/12/2025 5:52 AM EDT [facility] MCHC 31.7(L) 32 - 36 g/dL 02/12/2025 5:52 AM EDT [facility] RDW 22.7(H) 11.5 - 15 % 02/12/2025 5:52 AM EDT [facility] Platelet Count 179 150 - 450 X10E9/L 02/12/2025 5:52 AM EDT [facility] MPV 7.7 7 - 12 fL 02/12/2025 5:52 AM EDT [facility] Neutrophils Relatives 78 % 02/12/2025 5:52 AM EDT [facility] Comment:This is an appended report. These results have been appended to a previously preliminary verified report. Lymphocytes Relative 19 % 02/12/2025 5:52 AM EDT [facility] Comment:This is an appended report. These results have been appended to a previously preliminary verified report. Monocytes Relative 3 % 02/12/2025 5:52 AM EDT [facility] Comment:This is an appended report. These results have been appended to a previously preliminary verified report. Neutrophils Absolute (M) 4.8 1.5 - 6.6 10*3/uL 02/12/2025 5:52 AM EDT [facility] Comment:This is an appended report. These results have been appended to a previously preliminary verified report. Lymphocytes Absolute 1.2 1.0 - 3.5 10*3/uL 02/12/2025 5:52 AM EDT [facility] Comment:This is an appended report. These results have been appended to a previously preliminary verified report. Monocytes Absolute 0.2 0.0 - 0.9 10*3/uL 02/12/2025 5:52 AM EDT [facility] Comment:This is an appended report. These results have been appended to a previously preliminary verified report. Hypochromia 1+ 02/12/2025 5:52 AM EDT [facility] Comment:This is an appended report. These results have been appended to a previously preliminary verified report. Polychromasia 1+ 02/12/2025 5:52 AM EDT [facility] Comment:This is an appended report. These results have been appended to a previously preliminary verified report. Differential Type CELLAVISION DIFFERENTIAL 02/12/2025 5:52 AM EDT [facility] Comment:This is an appended report. These results have been appended to a previously preliminary verified report. Blood Venous blood / Unknown 02/12/2025 4:38 AM EDT 02/12/2025 4:52 AM EDT us Vanessa Mccarthy MD LAB BLOOD ORDERABLES Johanna l Result [facility] LABORATORY [address] [place] [address], [place] [phone] * (ABNORMAL) Protime & INR (02/12/2025 4:38 AM EDT) PROTIME 22.7(H) 9.8 - 13.2 sec 02/12/2025 5:29 AM EDT [facility] INR 2.0(H) 0.9 - 1.2 02/12/2025 5:29 AM EDT [facility] Blood Venous blood / Unknown 02/12/2025 4:38 AM EDT 02/12/2025 4:52 AM EDT us Vanessa Mccarthy MD LAB BLOOD ORDERABLES Johanna l Result [facility] [address] [place] [address], * Phosphorus (02/12/2025 4:38 AM EDT) PHOSPHORUS 2.7 2.4 - 4.9 mg/dL 02/12/2025 5:32 AM EDT [facility] Blood Venous blood / Unknown 02/12/2025 4:38 AM EDT 02/12/2025 4:52 AM EDT us Vanessa Mccarthy MD LAB BLOOD ORDERABLES Johanna l Result Performing Organization Address City/[facility]/ZIP Co de Phone Number [facility] [address] [place] [address], * Magnesium (02/12/2025 4:38 AM EDT) MAGNESIUM 2.0 1.8 - 2.6 mg/dL 02/12/2025 5:32 AM EDT [facility] Blood Venous blood / Unknown 02/12/2025 4:38 AM EDT 02/12/2025 4:52 AM EDT us Vanessa Mccarthy MD LAB BLOOD ORDERABLES Johanna l Result [facility] [address] [place] [address], [place] [phone] * (ABNORMAL) Comprehensive metabolic panel (02/12/2025 4:38 AM EDT) SODIUM 147(H) 134 - 146 mmol/L 02/12/2025 5:32 AM EDT [facility] POTASSIUM 4.1 3.5 - 5.0 mmol/L 02/12/2025 5:32 AM EDT [facility] CHLORIDE 94(L) 98 - 109 mmol/L 02/12/2025 5:32 AM [facility] CARBON DIOXIDE >45(H) 22 - 32 mmol/L 02/12/2025 5:32 AM [facility] ANION GAP <8 5 - 15 mmol/L 02/12/2025 5:32 AM [facility] BLOOD UREA NITROGEN 10 5 - 27 mg/dL 02/12/2025 5:32 AM [facility] CREATININE 0.25(L) 0.40 - 1.00 mg/dL 02/12/2025 5:32 AM [facility] Comment:METHOD TRACEABLE TO IDMA STANDARD GLUCOSE 91 65 - 99 mg/dL 02/12/2025 5:32 AM [facility] CALCIUM 8.4(L) 8.5 - 10.5 mg/dL 02/12/2025 5:32 AM [facility] TOTAL PROTEIN 4.8(L) 6.0 - 8.0 g/dL 02/12/2025 5:32 AM [facility] ALBUMIN 3.2 3.2 - 5.3 g/dL 02/12/2025 5:32 AM [facility] ALKALINE PHOSPHATASE 48 39 - 130 U/L 02/12/2025 5:32 AM [facility] AST 12 <=41 U/L 02/12/2025 5:32 AM [facility] ALT 12 <=31 U/L 02/12/2025 5:32 AM [facility] BILIRUBIN,TOTAL 0.5 0.3 - 1.2 mg/dL 02/12/2025 5:32 AM [facility] EGFR Non-Race Dependent >90 >=60 ml/min/1.7 3sq.m 02/12/2025 5:32 AM [facility] Comment: Reported eGFR is based on the CKD-EPI 2020 equation that does not use a race coefficient. Blood Venous blood / Unknown 02/12/2025 4:38 AM EDT 02/12/2025 4:52 AM EDT Vanessa Mccarthy MD LAB BLOOD ORDERABLES Johanna l Result Performing Organization Address City/[facility]/ZIP Co de Phone Number [facility] [address] [place] [address], [place] [phone] * Magnesium (02/11/2025 3:03 PM EDT) MAGNESIUM 2.1 1.8 - 2.6 mg/dL 02/11/2025 3:56 PM EDT [facility] Blood Venous blood / Unknown Line / Unknown 02/11/2025 3:03 PM EDT 02/11/2025 3:29 PM EDT Sha Garcia MD LAB BLOOD ORDERABLES Final Resul t Performing Organization Address City/[facility]/ZIP Co de Phone Number [facility] [address] [place] [address], [place] [phone] * Potassium (02/11/2025 3:03 PM EDT) POTASSIUM 4.0 3.5 - 5.0 mmol/L 02/11/2025 3:56 PM EDT [facility] Blood Venous blood / Unknown Line / Unknown 02/11/2025 3:03 PM EDT 02/11/2025 3:29 PM EDT Sha Garcia MD LAB BLOOD ORDERABLES Final Resul t [facility] [address] [place] [address], [place] [phone] * (ABNORMAL) Blood Gas, Arterial (02/11/2025 11:20 AM EDT) Sample type ARTERIAL 02/11/2025 11:28 AM EDT [facility] pH, Arterial 7.312(L) 7.350 - 7.450 02/11/2025 11:28 AM EDT [facility] pCO2, Arterial 92.5(HH) 35.0 - 45.0 mmHg 02/11/2025 11:28 AM EDT [facility] PO2, Arterial 85 80 - 100 mmHg 02/11/2025 11:28 AM EDT [facility] Base, Excess 17.0(H) 0.0 - 2.0 mmol/L 02/11/2025 11:28 AM EDT [facility] HCO3, Arterial 46.8(H) 22.0 - 26.0 mmol/L 02/11/2025 11:28 AM EDT [facility] %O2 Saturation, Arterial 94.0 >90.0 % 02/11/2025 11:28 AM EDT [facility] Diego's test Pass 02/11/2025 11:28 AM EDT [facility] SPO2 92 % 02/11/2025 11:28 AM T [facility] Sample site R Rad 02/11/2025 11:28 AM T [facility] Insp. O2 conc. 35 % 02/11/2025 11:28 AM EDT [facility] Source Of Oxygen NC 02/11/2025 11:28 AM EDT [facility] arterial (Blood, Arterial) 02/11/2025 11:20 AM EDT 02/11/2025 11:28 AM EDT us Sha Garcia MD LAB BLOOD ORDERABLES Final Resul t [facility] [address] [place] [address], * Fluoroscopy swallow motility function (02/11/2025 10:37 AM EDT) Anatomical Region Laterality Modality Chest, Abdomen, Body Radio Fluor oscopy 02/11/2025 10:4 5 AM EDT Narrative 02/11/2025 10:59 AM EDT FL SWALLOW MOTILITY FUNCTION HISTORY: Oropharyngeal dysphagia COMPARISON: 02/07/2025 TECHNIQUE: Video fluoroscopic swallow study was performed in conjunction with speech pathologist. Barium contrast materials of varying consistencies administered. FINDINGS: Fluoroscopy time: 1.2 minutes Reference air kerma: 1.8 mGy Runs: 11 Thin: Intermittent penetration with both straw and cup, more significant with straw. Applesauce: No penetration or aspiration. Fruit: No penetration or aspiration. Cracker: No penetration or aspiration. IMPRESSION: 1. Intermittent penetration of thin liquids as detailed. 2. Please correlate with dedicated speech pathology report for additional details and recommendations. Approved by Jody Bradford MD on 02/11/2025 10:45 AM Fede Mclean MD have personally reviewed the image(s) and agree with and/or edited the report Finalized by Fede Pepper MD on 02/11/2025 10:59 AM Procedure Note Fede Pepper MD - 02/11/2025 FL SWALLOW MOTILITY FUNCTION HISTORY: Oropharyngeal dysphagia COMPARISON: 02/07/2025 TECHNIQUE: Video fluoroscopic swallow study was performed in conjunctionwith speech pathologist. Barium contrast materials of varyingconsistencies administered. FINDINGS: Fluoroscopy time: 1.2 minutes Reference air kerma: 1.8 mGy Runs: 11 Thin: Intermittent penetration with both straw and cup, more significantwith straw. Applesauce: No penetration or aspiration. Fruit: No penetration or aspiration. Cracker: No penetration or aspiration. IMPRESSION: 1. Intermittent penetration of thin liquids as detailed. 2. Please correlate with dedicated speech pathology report for additionaldetails and recommendations. Approved by Jody Bradford MD on 02/11/2025 10:45 AM Fede Mclean MD have personally reviewed the image(s) and agree withand/or edited the report Finalized by Fede Pepper MD on 02/11/2025 10:59 AM Sha Garcia MD IMG FLUOROSCOPY ORDERABLES Final Result * (ABNORMAL) Vancomycin, peak (02/11/2025 7:58 AM EDT) VANCOMYCIN PEAK 24.3(L) 30.0 - 40.0 ug/mL 02/11/2025 8:46 AM EDT [facility] Blood Venous blood / Unknown 02/11/2025 7:58 AM EDT 02/11/2025 8:16 AM EDT us Moath H Vishal DO LAB BLOOD ORDERABLES Final Res ult [facility] [address] [place] [address], [place] [phone] * (ABNORMAL) CBC auto differential (02/11/2025 5:19 AM EDT) WBC 6.6 4 - 11 x10E9/L 02/11/2025 8:34 AM EDT [facility] RBC Count 3.48(L) 3.8 - 5.2 X10E12/L 02/11/2025 8:34 AM EDT [facility] Hemoglobin 10.2(L) 11.7 - 15.5 g/dL 02/11/2025 8:34 AM EDT [facility] Hematocrit 31.9(L) 35 - 47 % 02/11/2025 8:34 AM EDT [facility] MCV 92 80 - 100 fL 02/11/2025 8:34 AM EDT [facility] MCH 29.3 27 - 34 pg 02/11/2025 8:34 AM EDT [facility] MCHC 31.9(L) 32 - 36 g/dL 02/11/2025 8:34 AM EDT [facility] RDW 22.5(H) 11.5 - 15 % 02/11/2025 8:34 AM EDT [facility] Platelet Count 159 150 - 450 X10E9/L 02/11/2025 8:34 AM EDT [facility] MPV 7.8 7 - 12 fL 02/11/2025 8:34 AM EDT [facility] % Bands Neutrophils 3 % 02/11/2025 8:34 AM EDT [facility] Comment:This is an appended report. These results have been appended to a previously preliminary verified report. Neutrophils Relatives 81 % 02/11/2025 8:34 AM EDT [facility] Comment:This is an appended report. These results have been appended to a previously preliminary verified report. Lymphocytes Relative 16 % 02/11/2025 8:34 AM EDT [facility] Comment:This is an appended report. These results have been appended to a previously preliminary verified report. Neutrophils Absolute (M) 5.5 1.5 - 6.6 10*3/uL 02/11/2025 8:34 AM EDT [facility] Comment:This is an appended report. These results have been appended to a previously preliminary verified report. Lymphocytes Absolute 1.1 1.0 - 3.5 10*3/uL 02/11/2025 8:34 AM EDT [facility] Comment:This is an appended report. These results have been appended to a previously preliminary verified report. Differential Type CELLAVISION DIFFERENTIAL 02/11/2025 8:34 AM EDT [facility] Comment:This is an appended report. These results have been appended to a previously preliminary verified report. Blood Venous blood / Unknown 02/11/2025 5:19 AM EDT 02/11/2025 5:34 AM EDT us Vanessa Mccarthy MD LAB BLOOD ORDERABLES Johanna l Result [facility] [address] [place] [address], [place] [phone] * (ABNORMAL) Protime & INR (02/11/2025 5:19 AM EDT) PROTIME 24.1(H) 9.8 - 13.2 sec 02/11/2025 6:21 AM EDT [facility] INR 2.1(H) 0.9 - 1.2 02/11/2025 6:21 AM EDT [facility] Blood Venous blood / Unknown 02/11/2025 5:19 AM EDT 02/11/2025 5:34 AM EDT us Vanessa Mccarthy MD LAB BLOOD ORDERABLES Johanna l Result [facility] [address] [place] [address], * Phosphorus (02/11/2025 5:19 AM EDT) PHOSPHORUS 2.6 2.4 - 4.9 mg/dL 02/11/2025 6:06 AM EDT [facility] Blood Venous blood / Unknown 02/11/2025 5:19 AM EDT 02/11/2025 5:34 AM EDT us Vanessa Mccarthy MD LAB BLOOD ORDERABLES Johanna l Result Performing Organization Address City/[facility]/ZIP Co de Phone Number [facility] [address] [place] [address], * Magnesium (02/11/2025 5:19 AM EDT) MAGNESIUM 1.8 1.8 - 2.6 mg/dL 02/11/2025 6:06 AM EDT [facility] Blood Venous blood / Unknown 02/11/2025 5:19 AM EDT 02/11/2025 5:34 AM EDT us Vanessa Mccarthy MD LAB BLOOD ORDERABLES Johanna l Result [facility] [address] [place] [address], [place] [phone] * (ABNORMAL) Comprehensive metabolic panel (02/11/2025 5:19 AM EDT) SODIUM 146 134 - 146 mmol/L 02/11/2025 6:06 AM EDT [facility] POTASSIUM 3.8 3.5 - 5.0 mmol/L 02/11/2025 6:06 AM EDT [facility] CHLORIDE 97(L) 98 - 109 mmol/L 02/11/2025 6:06 AM [facility] CARBON DIOXIDE >45(H) 22 - 32 mmol/L 02/11/2025 6:06 AM [facility] ANION GAP <4(L) 5 - 15 mmol/L 02/11/2025 6:06 AM [facility] BLOOD UREA NITROGEN 12 5 - 27 mg/dL 02/11/2025 6:06 AM [facility] CREATININE 0.28(L) 0.40 - 1.00 mg/dL 02/11/2025 6:06 AM [facility] Comment:METHOD TRACEABLE TO IDMA STANDARD GLUCOSE 194(H) 65 - 99 mg/dL 02/11/2025 6:06 AM [facility] CALCIUM 8.3(L) 8.5 - 10.5 mg/dL 02/11/2025 6:06 AM [facility] TOTAL PROTEIN 5.1(L) 6.0 - 8.0 g/dL 02/11/2025 6:06 AM [facility] ALBUMIN 3.4 3.2 - 5.3 g/dL 02/11/2025 6:06 AM [facility] ALKALINE PHOSPHATASE 49 39 - 130 U/L 02/11/2025 6:06 AM [facility] AST 9 <=41 U/L 02/11/2025 6:06 AM [facility] ALT 12 <=31 U/L 02/11/2025 6:06 AM [facility] BILIRUBIN,TOTAL 0.4 0.3 - 1.2 mg/dL 02/11/2025 6:06 AM [facility] EGFR Non-Race Dependent >90 >=60 ml/min/1.7 3sq.m 02/11/2025 6:06 AM [facility] Comment: Reported eGFR is based on the CKD-EPI 2020 equation that does not use a race coefficient. Blood Venous blood / Unknown 02/11/2025 5:19 AM EDT 02/11/2025 5:34 AM EDT Vanessa Mccarthy MD LAB BLOOD ORDERABLES Johanna l Result [facility] [address] [place] [address], [place] [phone] * Vancomycin, trough To be drawn prior to the 0600 dose. *Time sensitive-DO NOT RETIME without consult pharmacy* (02/11/2025 5:19 AM EDT) VANCOMYCIN TROUGH 10.8 5.0 - 20.0 ug/mL 02/11/2025 6:05 AM EDT [facility] Blood Venous blood / Unknown 02/11/2025 5:19 AM EDT 02/11/2025 5:34 AM EDT Yazmin Rodgers DO LAB BLOOD ORDERABLES Final Res ult [facility] [address] [place] [address], [place] [phone] * (ABNORMAL) Blood Gas, Arterial (02/10/2025 9:38 AM EDT) Sample type ARTERIAL 02/10/2025 10:09 AM EDT [facility] pH, Arterial 7.252(L) 7.350 - 7.450 02/10/2025 10:09 AM EDT [facility] pCO2, Arterial 107.4(HH) 35.0 - 45.0 mmHg 02/10/2025 10:09 AM EDT [facility] PO2, Arterial 116(H) 80 - 100 mmHg 02/10/2025 10:09 AM EDT [facility] Base, Excess 16.0(H) 0.0 - 2.0 mmol/L 02/10/2025 10:09 AM EDT [facility] HCO3, Arterial 47.2(H) 22.0 - 26.0 mmol/L 02/10/2025 10:09 AM EDT [facility] %O2 Saturation, Arterial 97.0 >90.0 % 02/10/2025 10:09 AM EDT [facility] Diego's test Pass 02/10/2025 10:09 AM EDT [facility] SPO2 94 % 02/10/2025 10:09 AM EDT [facility] Sample site R Rad 02/10/2025 10:09 AM EDT [facility] Insp. O2 conc. 36 % 02/10/2025 10:09 AM EDT [facility] Source Of Oxygen NC 02/10/2025 10:09 AM EDT [facility] arterial (Blood, Arterial) 02/10/2025 9:38 AM EDT 02/10/2025 10:09 AM EDT us Alejo Villalobos MD LAB BLOOD ORDERABLES Final Resul t [facility] [address] [place] [address], [place] * X-ray chest 1 view (02/10/2025 9:12 AM EDT) Anatomical Region Laterality Modality Body, Chest N/A Computed Radiogr aphy 02/10/2025 9:26 AM EDT Narrative 02/10/2025 11:23 AM EDT XR CHEST 1 VW HISTORY: Hypoxia COMPARISON: 02/09/2025. CT chest 02/04/2025 FINDINGS: AP portable upright radiograph obtained. Right-sided PICC line terminates in the SVC. Stable appearance of cardiac pacing device and spinal cord stimulator leads. Emphysematous changes. Small right pleural effusion is mildly improved. Similar appearance of mildly prominent interstitial markings compatible with mild pulmonary edema or chronic interstitial lung disease. IMPRESSION: * Mildly improved small right pleural effusion. * Otherwise no significant interval change. Approved by Jody Mohamud DO on 02/10/2025 9:26 AM Manuel Mclean MD have personally reviewed the image(s) and agree with and/or edited the report Finalized by Manuel Fung MD on 02/10/2025 11:23 AM Procedure Note Manuel Fung MD - 02/10/2025 XR CHEST 1 VW HISTORY: Hypoxia COMPARISON: 02/09/2025. CT chest 02/04/2025 FINDINGS: AP portable upright radiograph obtained. Right-sided PICC line terminates in the SVC. Stable appearance of cardiacpacing device and spinal cord stimulator leads. Emphysematous changes.Small right pleural effusion is mildly improved. Similar appearance ofmildly prominent interstitial markings compatible with mild pulmonaryedema or chronic interstitial lung disease. IMPRESSION: * Mildly improved small right pleural effusion. * Otherwise no significant interval change. Approved by Jody Mohamud DO on 02/10/2025 9:26 AM IManuel MD have personally reviewed the image(s) and agree withand/or edited the report Finalized by Manuel Fung MD on 02/10/2025 11:23 AM [facility] Callie JOSHI IM DIAGNOSTIC IMAGING ORDERABLE S Final Result * (ABNORMAL) CBC auto differential (02/10/2025 5:18 AM EDT) WBC 5.1 4 - 11 x10E9/L 02/10/2025 9:14 AM EDT [facility] RBC Count 3.33(L) 3.8 - 5.2 X10E12/L 02/10/2025 9:14 AM EDT [facility] Hemoglobin 9.6(L) 11.7 - 15.5 g/dL 02/10/2025 9:14 AM EDT [facility] Hematocrit 30.5(L) 35 - 47 % 02/10/2025 9:14 AM EDT [facility] MCV 91 80 - 100 fL 02/10/2025 9:14 AM EDT [facility] MCH 28.8 27 - 34 pg 02/10/2025 9:14 AM EDT [facility] MCHC 31.4(L) 32 - 36 g/dL 02/10/2025 9:14 AM EDT [facility] RDW 22.1(H) 11.5 - 15 % 02/10/2025 9:14 AM [facility] Platelet Count 129(L) 150 - 450 X10E9/L 02/10/2025 9:14 AM [facility] MPV 7.4 7 - 12 fL 02/10/2025 9:14 AM [facility] % Bands Neutrophils 1 % 02/10/2025 9:14 AM [facility] Comment:This is an appended report. These results have been appended to a previously preliminary verified report. Neutrophils Relatives 72 % 02/10/2025 9:14 AM [facility] Comment:This is an appended report. These results have been appended to a previously preliminary verified report. Lymphocytes Relative 21 % 02/10/2025 9:14 AM [facility] Comment:This is an appended report. These results have been appended to a previously preliminary verified report. Monocytes Relative 5 % 02/10/2025 9:14 AM [facility] Comment:This is an appended report. These results have been appended to a previously preliminary verified report. Eosinophils Relative 1 % 02/10/2025 9:14 AM [facility] Comment:This is an appended report. These results have been appended to a previously preliminary verified report. Neutrophils Absolute (M) 3.6 1.5 - 6.6 10*3/uL 02/10/2025 9:14 AM [facility] Comment:This is an appended report. These results have been appended to a previously preliminary verified report. Lymphocytes Absolute 1.1 1.0 - 3.5 10*3/uL 02/10/2025 9:14 AM [facility] Comment:This is an appended report. These results have been appended to a previously preliminary verified report. Monocytes Absolute 0.3 0.0 - 0.9 10*3/uL 02/10/2025 9:14 AM [facility] Comment:This is an appended report. These results have been appended to a previously preliminary verified report. Eosinophils Absolute 0.1 0.0 - 0.4 10*3/uL 02/10/2025 9:14 AM EDT [facility] Comment:This is an appended report. These results have been appended to a previously preliminary verified report. Anisocytosis 2+ 02/10/2025 9:14 AM EDT [facility] Comment:This is an appended report. These results have been appended to a previously preliminary verified report. Target Cells 1+ 02/10/2025 9:14 AM EDT [facility] Comment:This is an appended report. These results have been appended to a previously preliminary verified report. Differential Type MANUAL DIFFERENTIAL 02/10/2025 9:14 AM EDT [facility] Comment:This is an appended report. These results have been appended to a previously preliminary verified report. Blood Venous blood / Unknown 02/10/2025 5:18 AM EDT 02/10/2025 5:48 AM EDT Vanessa Mccarthy MD LAB BLOOD ORDERABLES Johanna l Result [facility] [address] [place] [address], [place] [phone] * (ABNORMAL) Protime & INR (02/10/2025 5:18 AM EDT) PROTIME 20.5(H) 9.8 - 13.2 sec 02/10/2025 9:25 AM EDT [facility] INR 1.8(H) 0.9 - 1.2 02/10/2025 9:25 AM EDT [facility] Blood Venous blood / Unknown 02/10/2025 5:18 AM EDT 02/10/2025 5:48 AM EDT us Vanessa Mccarthy MD LAB BLOOD ORDERABLES Johanna l Result [facility] [address] [place] [address], [place] [phone] * Phosphorus (02/10/2025 5:18 AM EDT) PHOSPHORUS 2.5 2.4 - 4.9 mg/dL 02/10/2025 6:39 AM EDT [facility] Blood Venous blood / Unknown 02/10/2025 5:18 AM EDT 02/10/2025 5:48 AM EDT us Vanessa Mccarthy MD LAB BLOOD ORDERABLES Johanna l Result [facility] [address] [place] [address], * Magnesium (02/10/2025 5:18 AM EDT) MAGNESIUM 1.9 1.8 - 2.6 mg/dL 02/10/2025 6:39 AM EDT [facility] Blood Venous blood / Unknown 02/10/2025 5:18 AM EDT 02/10/2025 5:48 AM EDT us Vanessa Mccarthy MD LAB BLOOD ORDERABLES Johanna l Result [facility] [address] [place] [address], * (ABNORMAL) Comprehensive metabolic panel (02/10/2025 5:18 AM EDT) SODIUM 145 134 - 146 mmol/L 02/10/2025 6:39 AM EDT [facility] POTASSIUM 4.3 3.5 - 5.0 mmol/L 02/10/2025 6:39 AM EDT [facility] CHLORIDE 98 98 - 109 mmol/L 02/10/2025 6:39 AM EDT [facility] CARBON DIOXIDE 45(H) 22 - 32 mmol/L 02/10/2025 6:39 AM EDT [facility] ANION GAP 2(L) 5 - 15 mmol/L 02/10/2025 6:39 AM EDT [facility] BLOOD UREA NITROGEN 10 5 - 27 mg/dL 02/10/2025 6:39 AM EDT [facility] CREATININE 0.28(L) 0.40 - 1.00 mg/dL 02/10/2025 6:39 AM EDT [facility] Comment:METHOD TRACEABLE TO IDMA STANDARD GLUCOSE 87 65 - 99 mg/dL 02/10/2025 6:39 AM EDT [facility] CALCIUM 8.3(L) 8.5 - 10.5 mg/dL 02/10/2025 6:39 AM EDT [facility] TOTAL PROTEIN 4.9(L) 6.0 - 8.0 g/dL 02/10/2025 6:39 AM EDT [facility] ALBUMIN 3.2 3.2 - 5.3 g/dL 02/10/2025 6:39 AM EDT [facility] ALKALINE PHOSPHATASE 46 39 - 130 U/L 02/10/2025 6:39 AM EDT [facility] AST 9 <=41 U/L 02/10/2025 6:39 AM EDT [facility] ALT 13 <=31 U/L 02/10/2025 6:39 AM EDT [facility] BILIRUBIN,TOTAL 0.4 0.3 - 1.2 mg/dL 02/10/2025 6:39 AM EDT [facility] EGFR Non-Race Dependent >90 >=60 ml/min/1.7 3sq.m 02/10/2025 6:39 AM EDT [facility] Comment: Reported eGFR is based on the CKD-EPI 2020 equation that does not use a race coefficient. Blood Venous blood / Unknown 02/10/2025 5:18 AM EDT 02/10/2025 5:48 AM EDT us Vanessa Mccarthy MD LAB BLOOD ORDERABLES Johanna l Result [facility] [address] [place] [address], * X-ray chest 1 view (02/09/2025 3:15 PM EDT) Anatomical Region Laterality Modality Body, Chest N/A Computed Radiogr aphy 02/09/2025 3:28 PM EDT Narrative 02/09/2025 3:31 PM EDT PROCEDURE: Single AP view of the chest. INDICATION: PICC ADJUSTED, CONFIRM NEW PLACEMENT . COMPARISON: Serial chest radiographs most recently dated earlier today at 1:02 PM. FINDINGS: Support lines, tubes, devices, surgical hardware, material: Left chest wall AICD/pacemaker with leads overlying the right atrium and right ventricle. Spinal nerve stimulator. Interval repositioning of right-sided PICC with tip overlying the cavoatrial junction. Lungs and Pleura: See Impression. No pneumothorax. Small layering right pleural effusion. Trace left pleural effusion. Cardiovascular and Mediastinum: The cardiomediastinal silhouette appears grossly stable noting a calcified tortuous aorta. IMPRESSION: 1. Interval repositioning of right-sided PICC with tip overlying the cavoatrial junction. 2. Similar mild interstitial edema and small right pleural effusion. 3. Trace left pleural effusion. 4. Emphysema.. Finalized by Kaci Rodriguez MD on 02/09/2025 3:31 PM Procedure Note Kaci Rodriguez MD - 02/09/2025 PROCEDURE: Single AP view of the chest. INDICATION: PICC ADJUSTED, CONFIRM NEW PLACEMENT . COMPARISON: Serial chest radiographs most recently dated earlier today at1:02 PM. FINDINGS: Support lines, tubes, devices, surgical hardware, material: Left chestwall AICD/pacemaker with leads overlying the right atrium and rightventricle. Spinal nerve stimulator. Interval repositioning of right-sidedPICC with tip overlying the cavoatrial junction. Lungs and Pleura: See Impression. No pneumothorax. Small layering rightpleural effusion. Trace left pleural effusion. Cardiovascular and Mediastinum: The cardiomediastinal silhouette appearsgrossly stable noting a calcified tortuous aorta. IMPRESSION: 1. Interval repositioning of right-sided PICC with tip overlying thecavoatrial junction. 2. Similar mild interstitial edema and small right pleural effusion. 3. Trace left pleural effusion. 4. Emphysema.. Finalized by Kaci Rodriguez MD on 02/09/2025 3:31 PM Yazmin Rodgers DO IMG DIAGNOSTIC IMAGING ORDERAB LES Final Result * X-ray chest 1 view (02/09/2025 1:04 PM EDT) Anatomical Region Laterality Modality Body, Chest N/A Computed Radiogr aphy 02/09/2025 1:18 PM EDT Narrative 02/09/2025 1:21 PM EDT EXAM: XR CHEST 1 VW CLINICAL INFORMATION: picc placement. COMPARISON: 02/05/2025 FINDINGS: There is a right approach PICC. The tip terminates over the right apex in the right brachiocephalic vein. Stable mild interstitial edema with trace pleural effusions. There is mild right basilar atelectasis. Stable cardiomediastinal silhouette. The endotracheal tube, gastric tube, and right IJ central venous catheter has been removed in the interval. Stable left chest wall pacemaker and leads. IMPRESSION: 1. Right approach PICC with the tip terminating over the right apex in the brachiocephalic vein. 2. Interval removal of the endotracheal tube, gastric tube, and right IJ central venous catheter. There is no evidence for a pneumothorax or shift of the mediastinal structures. 3. Mild interstitial edema with trace pleural effusions and mild right basilar atelectasis. Finalized by Daniel Moreland MD on 02/09/2025 1:21 PM Procedure Note Daniel Moreland MD - 02/09/2025 EXAM: XR CHEST 1 VW CLINICAL INFORMATION: picc placement. COMPARISON: 02/05/2025 FINDINGS: There is a right approach PICC. The tip terminates over the right apex inthe right brachiocephalic vein. Stable mild interstitial edema with trace pleural effusions. There ismild right basilar atelectasis. Stable cardiomediastinal silhouette. Theendotracheal tube, gastric tube, and right IJ central venous catheter hasbeen removed in the interval. Stable left chest wall pacemaker andleads. IMPRESSION: 1. Right approach PICC with the tip terminating over the right apex in thebrachiocephalic vein. 2. Interval removal of the endotracheal tube, gastric tube, and right IJcentral venous catheter. There is no evidence for a pneumothorax or shiftof the mediastinal structures. 3. Mild interstitial edema with trace pleural effusions and mild rightbasilar atelectasis. Finalized by Daniel Moreland MD on 02/09/2025 1:21 PM Alejo Villalobos MD IMG DIAGNOSTIC IMAGING ORDERABLE S Final Result * (ABNORMAL) Vancomycin, peak (02/09/2025 5:05 AM EDT) [facility] VANCOMYCIN PEAK 20.3(L) 30.0 - 40.0 ug/mL 02/09/2025 5:41 AM EDT [facility] Blood Venous blood / Unknown 02/09/2025 5:05 AM EDT 02/09/2025 5:15 AM EDT Yazmin Rodgers DO LAB BLOOD ORDERABLES Final Res ult [facility] [address] [place] [address], [place] [phone] * (ABNORMAL) CBC auto differential (02/09/2025 1:17 AM EDT) [facility] WBC 5.1 4 - 11 x10E9/L 02/09/2025 2:28 AM EDT [facility] RBC Count 3.32(L) 3.8 - 5.2 X10E12/L 02/09/2025 2:28 AM EDT [facility] Hemoglobin 9.5(L) 11.7 - 15.5 g/dL 02/09/2025 2:28 AM EDT [facility] Hematocrit 29.8(L) 35 - 47 % 02/09/2025 2:28 AM EDT [facility] MCV 90 80 - 100 fL 02/09/2025 2:28 AM EDT [facility] MCH 28.7 27 - 34 pg 02/09/2025 2:28 AM EDT [facility] MCHC 31.9(L) 32 - 36 g/dL 02/09/2025 2:28 AM EDT [facility] RDW 22.8(H) 11.5 - 15 % 02/09/2025 2:28 AM EDT [facility] Platelet Count 129(L) 150 - 450 X10E9/L 02/09/2025 2:28 AM EDT [facility] MPV 8.0 7 - 12 fL 02/09/2025 2:28 AM EDT [facility] % Bands Neutrophils 3 % 02/09/2025 2:28 AM EDT [facility] Comment:This is an appended report. These results have been appended to a previously preliminary verified report. Neutrophils Relatives 82 % 02/09/2025 2:28 AM T [facility] Comment:This is an appended report. These results have been appended to a previously preliminary verified report. Lymphocytes Relative 7 % 02/09/2025 2:28 AM T [facility] Comment:This is an appended report. These results have been appended to a previously preliminary verified report. Monocytes Relative 7 % 02/09/2025 2:28 AM T [facility] Comment:This is an appended report. These results have been appended to a previously preliminary verified report. Atypical Lymphocytes Relative 1 % 02/09/2025 2:28 AM EDT [facility] Comment:This is an appended report. These results have been appended to a previously preliminary verified report. Neutrophils Absolute (M) 4.4 1.5 - 6.6 10*3/uL 02/09/2025 2:28 AM T [facility] Comment:This is an appended report. These results have been appended to a previously preliminary verified report. Lymphocytes Absolute 0.5(L) 1.0 - 3.5 10*3/uL 02/09/2025 2:28 AM EDT [facility] Comment:This is an appended report. These results have been appended to a previously preliminary verified report. Monocytes Absolute 0.4 0.0 - 0.9 10*3/uL 02/09/2025 2:28 AM EDT [facility] Comment:This is an appended report. These results have been appended to a previously preliminary verified report. Anisocytosis 2+ 02/09/2025 2:28 AM EDT [facility] Comment:This is an appended report. These results have been appended to a previously preliminary verified report. Hypochromia 2+ 02/09/2025 2:28 AM EDT [facility] Comment:This is an appended report. These results have been appended to a previously preliminary verified report. Polychromasia 1+ 02/09/2025 2:28 AM EDT [facility] Comment:This is an appended report. These results have been appended to a previously preliminary verified report. Differential Type CELLAVISION DIFFERENTIAL 02/09/2025 2:28 AM EDT [facility] Comment:This is an appended report. These results have been appended to a previously preliminary verified report. Blood Venous blood / Unknown 02/09/2025 1:17 AM EDT 02/09/2025 1:17 AM EDT Vanessa Mccarthy MD LAB BLOOD ORDERABLES Johanna l Result [facility] [address] [place] [address], * (ABNORMAL) Protime & INR (02/09/2025 1:17 AM EDT) PROTIME 26.1(H) 9.8 - 13.2 sec 02/09/2025 2:00 AM EDT [facility] INR 2.3(H) 0.9 - 1.2 02/09/2025 2:00 AM EDT [facility] Blood Venous blood / Unknown 02/09/2025 1:17 AM EDT 02/09/2025 1:17 AM EDT us Vanessa Mccarthy MD LAB BLOOD ORDERABLES Johanna l Result [facility] [address] [place] [address], [place] [phone] * Phosphorus (02/09/2025 1:17 AM EDT) PHOSPHORUS 2.8 2.4 - 4.9 mg/dL 02/09/2025 2:09 AM EDT [facility] Blood Venous blood / Unknown 02/09/2025 1:17 AM EDT 02/09/2025 1:17 AM EDT us Vanessa Mccarthy MD LAB BLOOD ORDERABLES Johanna l Result Performing Organization Address City/[facility]/ZIP Co de Phone Number [facility] [address] [place] [address], [place] [phone] * Magnesium (02/09/2025 1:17 AM EDT) MAGNESIUM 2.0 1.8 - 2.6 mg/dL 02/09/2025 2:09 AM EDT [facility] Blood Venous blood / Unknown 02/09/2025 1:17 AM EDT 02/09/2025 1:17 AM EDT us Vanessa Mccarthy MD LAB BLOOD ORDERABLES Johanna l Result [facility] [address] [place] [address], [place] [phone] * (ABNORMAL) Comprehensive metabolic panel (02/09/2025 1:17 AM EDT) SODIUM 145 134 - 146 mmol/L 02/09/2025 2:09 AM EDT [facility] POTASSIUM 4.3 3.5 - 5.0 mmol/L 02/09/2025 2:09 AM [facility] CHLORIDE 100 98 - 109 mmol/L 02/09/2025 2:09 AM [facility] CARBON DIOXIDE 42(H) 22 - 32 mmol/L 02/09/2025 2:09 AM [facility] ANION GAP 3(L) 5 - 15 mmol/L 02/09/2025 2:09 AM [facility] BLOOD UREA NITROGEN 13 5 - 27 mg/dL 02/09/2025 2:09 AM [facility] CREATININE 0.39(L) 0.40 - 1.00 mg/dL 02/09/2025 2:09 AM [facility] Comment:METHOD TRACEABLE TO [facility] STANDARD GLUCOSE 148(H) 65 - 99 mg/dL 02/09/2025 2:09 AM [facility] CALCIUM 8.3(L) 8.5 - 10.5 mg/dL 02/09/2025 2:09 AM [facility] TOTAL PROTEIN 5.3(L) 6.0 - 8.0 g/dL 02/09/2025 2:09 AM [facility] ALBUMIN 3.5 3.2 - 5.3 g/dL 02/09/2025 2:09 AM [facility] ALKALINE PHOSPHATASE 46 39 - 130 U/L 02/09/2025 2:09 AM [facility] AST 12 <=41 U/L 02/09/2025 2:09 AM [facility] ALT 14 <=31 U/L 02/09/2025 2:09 AM [facility] BILIRUBIN,TOTAL 0.4 0.3 - 1.2 mg/dL 02/09/2025 2:09 AM [facility] EGFR Non-Race Dependent >90 >=60 ml/min/1.7 3sq.m 02/09/2025 2:09 AM [facility] Comment: Reported eGFR is based on the CKD-EPI 2020 equation that does not use a race coefficient. Blood Venous blood / Unknown 02/09/2025 1:17 AM EDT 02/09/2025 1:17 AM EDT Vanessa Mccarthy MD LAB BLOOD ORDERABLES Johanna l Result Performing Organization Address City/[facility]/ZIP Co de Phone Number [facility] [address] [place] [address], * Vancomycin, trough To be drawn 30 minutes prior to the 0200 dose (02/09/2025 1:17 AM EDT) VANCOMYCIN TROUGH 9.8 5.0 - 20.0 ug/mL 02/09/2025 1:54 AM EDT [facility] Blood Venous blood / Unknown 02/09/2025 1:17 AM EDT 02/09/2025 1:17 AM EDT Yazmin Rodgers DO LAB BLOOD ORDERABLES Final Res ult Performing Organization Address [facility]/ZIP Co de Phone Number [facility] [address] [place] [address], * (ABNORMAL) Anti XA unfractionated heparin (02/09/2025 1:17 AM EDT) ANTI XA UFH <0.04(L) 0.30 - 0.70 IU/mL 02/09/2025 2:00 AM EDT [facility] Blood Venous blood / Unknown 02/09/2025 1:17 AM EDT 02/09/2025 1:17 AM EDT Sandro Peters MD LAB BLOOD ORDERABLES Final R esult [facility] [address] [place] [address], * Ultrasound chest left (02/08/2025 1:51 PM EDT) Anatomical Region Laterality Modality Body, Chest Ultrasound 02/08/2025 2:38 PM EDT Narrative 02/08/2025 2:39 PM EDT CLINICAL INFORMATION: Pain and swelling. COMPARISON: None. Findings: Ultrasound scanning in the left chest performed. There is a complex fluid collection measuring 6.6 x 6.2 x 2.0 cm. No internal Doppler flow. The proximity of this abnormality to the patient's pacemaker is difficult to assess may be adjacent to this region. IMPRESSION: Complex fluid collection likely involuting hematoma, other etiologies could include abscess. Follow-up recommended to document resolution. Finalized by Jace Glover MD on 02/08/2025 2:39 PM Procedure Note Jace Glover MD - 02/08/2025 CLINICAL INFORMATION: Pain and swelling. COMPARISON: None. Findings: Ultrasound scanning in the left chest performed. There is a complex fluidcollection measuring 6.6 x 6.2 x 2.0 cm. No internal Doppler flow. Theproximity of this abnormality to the patient's pacemaker is difficult toassess may be adjacent to this region. IMPRESSION: Complex fluid collection likely involuting hematoma, other etiologiescould include abscess. Follow-up recommended to document resolution. Finalized by Jace Glover MD on 02/08/2025 2:39 PM us Khang Andino MD IMG US ORDERABLES Final Res ult * Echo complete W/O contrast (02/08/2025 12:44 PM EDT) LV Systolic Volume 18.60 mL XCELERA EF 61 % XCELERA FS 30 28 - 44 % XCELERA LV Diastolic Volume 47.20 mL XCELERA LVIDd 4.30 3.81 - 5.29 cm XCELERA LVIDs 3.00 2.26 - 3.43 cm XCELERA IVS 1.40 0.6 - 1.1 cm XCELERA PW 1.20 0.6 - 1.1 cm XCELERA LA Volume Index 40.9 mL/m2 XCELERA E/A ratio 1.23 XCELERA E wave deceleration time 106.00 msec XCELERA MV Peak E Carissa 119.00 cm/s XCELERA MV Peak A Carissa 96.80 cm/s XCELERA LA volume 63.40 cm3 XCELERA RV diastolic dimension (basal) 33.0 mm XCELERA TAPSE 1.71 cm XCELERA Est. RA pressure 8 mmHg XCELERA AV peak carissa 157.00 cm/s XCELERA LVOT peak carissa 1.19 m/s XCELERA AV VTI 31.70 cm XCELERA LVOT peak VTI 22.90 cm XCELERA AV mean gradient 5.00 mmHg XCELERA AV peak gradient 9.86 mmHg XCELERA AI pressure 1/2 time 219 ms XCELERA MV mean gradient 3.00 mmHg XCELERA MV peak gradient 10.11 mmHg XCELERA MV VTI 31.40 cm XCELERA MV pressure 1/2 time 31.00 ms XCELERA MV valve area p 1/2 method 7.10 cm2 XCELERA TR Peak Carissa 2.7 m/s XCELERA TR peak gradient 28.30 mmHg XCELERA RV Peak Systolic Pressure 50 mmHg XCELERA PV peak gradient 4.24 mmHg XCELERA Inferior Vena Cava Diameter 1.40 cm XCELERA LV ESV A2C 60.10 mL XCELERA LV ESV A4C 59.00 mL XCELERA Mitral Valve Max Velocity 1.59 cm/s XCELERA LV RWT 2D 55.81 XCELERA Echo EF Estimated 61 % XCELERA AV Velocity Ratio 0.72 XCELERA IVC proximal 14 cm XCELERA Left Ventricle Mass 207.06354 [id number] 1 g XCELERA Interventricular Septum Diastolic Thickness by 2D 14 cm XCELERA ZLVIDS 0.59 XCELERA ZLVIDD -0.43 XCELERA Anatomical Region Laterality Modality Chest N/A Ultrasound Narrative 02/08/2025 2:25 PM EDT Left Ventricle: Left ventricle appears normal in size. There is mild increased wall thickness/hypertrophy. Systolic function is normal with an ejection fraction of 65-70%. Unable to assess diastolic function due to atrial fibrillation/flutter. Tricuspid Valve: There is moderate regurgitation. RVSP calculated at 50 mmHg. RVSP is based on RA pressure of 8 mmHg. Right Ventricle: Systolic function is normal. Normal tricuspid annular plane systolic excursion. A pacer wire is present in the right ventricle. Aorta: The aortic root is normal in size. Pericardium: There is no pericardial effusion. Left Ventricle Left ventricle appears normal in size. There is mild increased wall thickness/hypertrophy. Systolic function is normal with an ejection fraction of 65-70%. No segmental wall motion abnormalities. Unable to assess diastolic function due to atrial fibrillation/flutter. Right Ventricle The right ventricular basal diameter is 33.0 mm. Systolic function is normal. Normal tricuspid annular plane systolic excursion. A pacer wire is present in the right ventricle. Left Atrium The left atrial volume index is 40.9 mL/m2. Right Atrium Right atrium is normal in size. IVC/SVC IVC appears normal. Mitral Valve The leaflets are mildly thickened. There is trace regurgitation. Tricuspid Valve Tricuspid valve appears to be normal. There is moderate regurgitation. RVSP calculated at 50 mmHg. RVSP is based on RA pressure of 8 mmHg. Aortic Valve The aortic valve is trileaflet. The leaflets exhibit focal thickening. There is trace regurgitation. Pulmonic Valve Pulmonic valve structure is grossly normal. There is no regurgitation. The peak gradient is 4.24 mmHg. Ascending Aorta The aortic root is normal in size. Pericardium There is no pericardial effusion. Study Details A complete echo was performed using complete 2D. During the study the apical, parasternal and subcostal views were captured. The study was difficult due to patient's unable to lay left lateral. us Vanessa Mccarthy MD CV ECHO ORDERABLES Final Result * Potassium (02/08/2025 12:29 PM EDT) POTASSIUM 4.8 3.5 - 5.0 mmol/L 02/08/2025 1:33 PM EDT [facility] Blood Venous blood / Unknown 02/08/2025 12:29 PM EDT 02/08/2025 12:50 PM EDT us Yumiko DumontTkrit LAB BLOOD ORDERABLES Final Re sult [facility] [address] [place] [address], * Ionized magnesium (02/08/2025 12:29 PM EDT) Pathologist [facility] IONIZED MAGNESIUM 0.60 0.45 - 0.74 mmol/L 02/08/2025 1:04 PM EDT [facility] Blood Venous blood / Unknown 02/08/2025 12:29 PM EDT 02/08/2025 12:50 PM EDT Sandro Peters MD LAB BLOOD ORDERABLES Final R esult [facility] [address] [place] [address], * (ABNORMAL) Blood Gas, Arterial (02/08/2025 11:31 AM EDT) [facility] Sample type ARTERIAL 02/08/2025 11:34 AM EDT [facility] pH, Arterial 7.338(L) 7.350 - 7.450 02/08/2025 11:34 AM EDT [facility] pCO2, Arterial 74.8(HH) 35.0 - 45.0 mmHg 02/08/2025 11:34 AM EDT [facility] PO2, Arterial 132(H) 80 - 100 mmHg 02/08/2025 11:34 AM EDT [facility] Base, Excess 12.0(H) 0.0 - 2.0 mmol/L 02/08/2025 11:34 AM EDT [facility] HCO3, Arterial 40.1(H) 22.0 - 26.0 mmol/L 02/08/2025 11:34 AM EDT [facility] %O2 Saturation, Arterial 99.0 >90.0 % 02/08/2025 11:34 AM EDT [facility] Diego's test Pass 02/08/2025 11:34 AM EDT [facility] SPO2 99 % 02/08/2025 11:34 AM EDT [facility] Sample site R Rad 02/08/2025 11:34 AM EDT [facility] Insp. O2 conc. 36 % 02/08/2025 11:34 AM EDT [facility] Source Of Oxygen NC 02/08/2025 11:34 AM EDT [facility] arterial (Blood, Arterial) 02/08/2025 11:31 AM EDT 02/08/2025 11:34 AM EDT us Alejo Villalobos MD LAB BLOOD ORDERABLES Final Resul t [facility] [address] [place] [address], [place] * Anti XA unfractionated heparin (02/08/2025 2:02 AM EDT) ANTI XA UFH 0.42 0.30 - 0.70 IU/mL 02/08/2025 2:23 AM EDT [facility] Comment: Optimal time for testing is 6 hrs post dosage This test is specific for monitoring patients on UFH, and is not recommended for use with other Anti-Xa medications. Blood Venous blood / Unknown 02/08/2025 2:02 AM EDT 02/08/2025 2:10 AM EDT us Sandro Peters MD LAB BLOOD ORDERABLES Final R esult [facility] [address] [place] [address], [place] [phone] * (ABNORMAL) CBC auto differential (02/08/2025 2:02 AM EDT) WBC 6.0 4 - 11 x10E9/L 02/08/2025 3:36 AM EDT [facility] RBC Count 3.12(L) 3.8 - 5.2 X10E12/L 02/08/2025 3:36 AM EDT [facility] Hemoglobin 9.0(L) 11.7 - 15.5 g/dL 02/08/2025 3:36 AM EDT [facility] Hematocrit 27.7(L) 35 - 47 % 02/08/2025 3:36 AM EDT [facility] MCV 89 80 - 100 fL 02/08/2025 3:36 AM EDT [facility] MCH 28.8 27 - 34 pg 02/08/2025 3:36 AM EDT [facility] MCHC 32.4 32 - 36 g/dL 02/08/2025 3:36 AM EDT [facility] RDW 23.2(H) 11.5 - 15 % 02/08/2025 3:36 AM EDT [facility] Platelet Count 137(L) 150 - 450 X10E9/L 02/08/2025 3:36 AM EDT [facility] MPV 7.5 7 - 12 fL 02/08/2025 3:36 AM EDT [facility] % Bands Neutrophils 1 % 02/08/2025 3:36 AM EDT [facility] Comment:This is an appended report. These results have been appended to a previously preliminary verified report. Neutrophils Relatives 82 % 02/08/2025 3:36 AM EDT [facility] Comment:This is an appended report. These results have been appended to a previously preliminary verified report. Lymphocytes Relative 10 % 02/08/2025 3:36 AM EDT [facility] Comment:This is an appended report. These results have been appended to a previously preliminary verified report. Monocytes Relative 8 % 02/08/2025 3:36 AM EDT [facility] Comment:This is an appended report. These results have been appended to a previously preliminary verified report. Neutrophils Absolute (M) 5.0 1.5 - 6.6 10*3/uL 02/08/2025 3:36 AM EDT [facility] Comment:This is an appended report. These results have been appended to a previously preliminary verified report. Lymphocytes Absolute 0.6(L) 1.0 - 3.5 10*3/uL 02/08/2025 3:36 AM EDT [facility] Comment:This is an appended report. These results have been appended to a previously preliminary verified report. Monocytes Absolute 0.5 0.0 - 0.9 10*3/uL 02/08/2025 3:36 AM EDT [facility] Comment:This is an appended report. These results have been appended to a previously preliminary verified report. Anisocytosis 2+ 02/08/2025 3:36 AM EDT [facility] Comment:This is an appended report. These results have been appended to a previously preliminary verified report. Polychromasia 1+ 02/08/2025 3:36 AM EDT [facility] Comment:This is an appended report. These results have been appended to a previously preliminary verified report. Elliptocytes 1+ 02/08/2025 3:36 AM EDT [facility] Comment:This is an appended report. These results have been appended to a previously preliminary verified report. Differential Type CELLAVISION DIFFERENTIAL 02/08/2025 3:36 AM EDT [facility] Comment:This is an appended report. These results have been appended to a previously preliminary verified report. Blood Venous blood / Unknown 02/08/2025 2:02 AM EDT 02/08/2025 2:10 AM EDT Vanessa Mccarthy MD LAB BLOOD ORDERABLES Johanna l Result [facility] [address] [place] [address], * (ABNORMAL) Protime & INR (02/08/2025 2:02 AM EDT) PROTIME 26.7(H) 9.8 - 13.2 sec 02/08/2025 2:23 AM EDT [facility] INR 2.3(H) 0.9 - 1.2 02/08/2025 2:23 AM EDT [facility] Blood Venous blood / Unknown 02/08/2025 2:02 AM EDT 02/08/2025 2:10 AM EDT us Vanessa Mccarthy MD LAB BLOOD ORDERABLES Johanna l Result [facility] [address] [place] [address], [place] [phone] * Phosphorus (02/08/2025 2:02 AM EDT) PHOSPHORUS 3.2 2.4 - 4.9 mg/dL 02/08/2025 2:36 AM EDT [facility] Blood Venous blood / Unknown 02/08/2025 2:02 AM EDT 02/08/2025 2:10 AM EDT us Vanessa Mccarthy MD LAB BLOOD ORDERABLES Johanna l Result Performing Organization Address City/[facility]/ZIP Co de Phone Number [facility] [address] [place] [address], [place] [phone] * Magnesium (02/08/2025 2:02 AM EDT) MAGNESIUM 1.9 1.8 - 2.6 mg/dL 02/08/2025 2:36 AM EDT [facility] Blood Venous blood / Unknown 02/08/2025 2:02 AM EDT 02/08/2025 2:10 AM EDT us Vanessa Mccarthy MD LAB BLOOD ORDERABLES Johanna l Result [facility] [address] [place] [address], [place] [phone] * (ABNORMAL) Comprehensive metabolic panel (02/08/2025 2:02 AM EDT) SODIUM 145 134 - 146 mmol/L 02/08/2025 2:36 AM EDT [facility] POTASSIUM 3.8 3.5 - 5.0 mmol/L 02/08/2025 2:36 AM [facility] CHLORIDE 100 98 - 109 mmol/L 02/08/2025 2:36 AM [facility] CARBON DIOXIDE 41(H) 22 - 32 mmol/L 02/08/2025 2:36 AM [facility] ANION GAP 4(L) 5 - 15 mmol/L 02/08/2025 2:36 AM [facility] BLOOD UREA NITROGEN 17 5 - 27 mg/dL 02/08/2025 2:36 AM [facility] CREATININE 0.40 0.40 - 1.00 mg/dL 02/08/2025 2:36 AM [facility] Comment:METHOD TRACEABLE TO IDMA STANDARD GLUCOSE 88 65 - 99 mg/dL 02/08/2025 2:36 AM [facility] CALCIUM 8.1(L) 8.5 - 10.5 mg/dL 02/08/2025 2:36 AM [facility] TOTAL PROTEIN 5.0(L) 6.0 - 8.0 g/dL 02/08/2025 2:36 AM [facility] ALBUMIN 3.3 3.2 - 5.3 g/dL 02/08/2025 2:36 AM [facility] ALKALINE PHOSPHATASE 42 39 - 130 U/L 02/08/2025 2:36 AM [facility] AST 10 <=41 U/L 02/08/2025 2:36 AM [facility] ALT 14 <=31 U/L 02/08/2025 2:36 AM [facility] BILIRUBIN,TOTAL 0.5 0.3 - 1.2 mg/dL 02/08/2025 2:36 AM [facility] EGFR Non-Race Dependent >90 >=60 ml/min/1.7 3sq.m 02/08/2025 2:36 AM [facility] Comment: Reported eGFR is based on the CKD-EPI 2020 equation that does not use a race coefficient. Blood Venous blood / Unknown 02/08/2025 2:02 AM EDT 02/08/2025 2:10 AM EDT Vanessa Mccarthy MD LAB BLOOD ORDERABLES Johanna l Result Performing Organization Address City/[facility]/ZIP Co de Phone Number [facility] [address] [place] [address], [place] [phone] * Anti XA unfractionated heparin (02/07/2025 10:03 PM EDT) ANTI XA UFH 0.35 0.30 - 0.70 IU/mL 02/07/2025 11:04 PM EDT [facility] Comment: Optimal time for testing is 6 hrs post dosage This test is specific for monitoring patients on UFH, and is not recommended for use with other Anti-Xa medications. Blood Venous blood / Unknown 02/07/2025 10:03 PM EDT 02/07/2025 10:13 PM EDT Yumiko Childers MD LAB BLOOD ORDERABLES Final Re sult Performing Organization Address [facility]/ZIP Co de Phone Number [facility] [address] [place] [address], [place] [phone] * (ABNORMAL) Vancomycin, peak (02/07/2025 4:33 PM EDT) VANCOMYCIN PEAK 17.8(L) 30.0 - 40.0 ug/mL 02/07/2025 5:10 PM EDT [facility] Blood Venous blood / Unknown Line / Unknown 02/07/2025 4:33 PM EDT 02/07/2025 4:43 PM EDT Isiah Felix DO LAB BLOOD ORDERABLES Final Resu lt Performing Organization Address City/[facility]/ZIP Co de Phone Number [facility] [address] [place] [address], * Anti XA unfractionated heparin (02/07/2025 4:33 PM EDT) Pathologist [facility] ANTI XA UFH 0.36 0.30 - 0.70 IU/mL 02/07/2025 5:15 PM EDT [facility] Comment: Optimal time for testing is 6 hrs post dosage This test is specific for monitoring patients on UFH, and is not recommended for use with other Anti-Xa medications. Blood Venous blood / Unknown Line / Unknown 02/07/2025 4:33 PM EDT 02/07/2025 4:43 PM EDT Yumiko Childers MD LAB BLOOD ORDERABLES Final Re sult [facility] [address] [place] [address], * Vancomycin, trough To be drawn prior to the 1200 dose (02/07/2025 11:42 AM EDT) [facility] VANCOMYCIN TROUGH 5.4 5.0 - 20.0 ug/mL 02/07/2025 12:23 PM EDT [facility] Blood Venous blood / Unknown Line / Unknown 02/07/2025 11:42 AM EDT 02/07/2025 11:51 AM EDT Isiah Felix DO LAB BLOOD ORDERABLES Final Resu lt [facility] [address] [place] [address], * (ABNORMAL) Hemoglobin and hematocrit, blood (02/07/2025 9:11 AM EDT) [facility] Hemoglobin 8.5(L) 11.7 - 15.5 g/dL 02/07/2025 9:50 AM EDT [facility] Hematocrit 26.5(L) 35 - 47 % 02/07/2025 9:50 AM EDT [facility] Blood Venous blood / Unknown Line / Unknown 02/07/2025 9:11 AM EDT 02/07/2025 9:39 AM EDT us Yumiko Childers MD LAB BLOOD ORDERABLES Final Re sult Performing Organization Address City/[facility]/ZIP Co de Phone Number [facility] [address] [place] [address], * Potassium (02/07/2025 9:11 AM EDT) POTASSIUM 3.8 3.5 - 5.0 mmol/L 02/07/2025 10:06 AM EDT [facility] Blood Venous blood / Unknown Line / Unknown 02/07/2025 9:11 AM EDT 02/07/2025 9:39 AM EDT us Claus Felix MD LAB BLOOD ORDERABLES Final Resul t Performing Organization Address [facility]/[place] de Phone Number [facility] [address] [place] [address], * (ABNORMAL) Anti XA unfractionated heparin (02/07/2025 9:11 AM EDT) ANTI XA UFH 0.23(L) 0.30 - 0.70 IU/mL 02/07/2025 10:01 AM EDT [facility] Comment: Optimal time for testing is 6 hrs post dosage This test is specific for monitoring patients on UFH, and is not recommended for use with other Anti-Xa medications. Blood Venous blood / Unknown Line / Unknown 02/07/2025 9:11 AM EDT 02/07/2025 9:39 AM EDT us Claus Felix MD LAB BLOOD ORDERABLES Final Resul t Performing Organization Address City/[facility]/ZIP Co de Phone Number [facility] [address] [place] [address], [place] [phone] * Transfuse RBC:1 Unit (02/07/2025 9:08 AM EDT) us Claus Felix MD BLOOD TRANSFUSION ORDERABLES Fin al Result * Transfuse RBC:1 Unit (02/07/2025 9:08 AM EDT) us Claus Felix MD BLOOD TRANSFUSION ORDERABLES Fin al Result * Fluoroscopy swallow motility function (02/07/2025 8:47 AM EDT) Anatomical Region Laterality Modality Chest, Abdomen, Body Radio Fluor oscopy 02/07/2025 8:58 AM EDT Narrative 02/07/2025 8:58 AM EDT CLINICAL INFORMATION: Oropharyngeal dysphagia. TECHNIQUE: Lateral videofluoroscopy during oral administration of one or more radiopaque diet consistencies. Reference air kerma: 1.2 mGy. COMPARISON: 01/26/2025. FINDINGS: Drinks Thin: Penetration. Mildly thick: No aspiration or penetration. Food Applesauce: No aspiration or penetration. Fruit: No aspiration or penetration. Cracker: No aspiration or penetration. IMPRESSION: * Penetration of thin liquid consistency. * Exam completed in conjunction with speech pathology. See speech pathology report in [facility] progress notes for details and recommendations. Approved by Resident Mathieu Jones DO on 02/07/2025 8:58 AM Manuel Mclean MD have personally reviewed the image(s) and agree with and/or edited the report Finalized by Manuel Fung MD on 02/07/2025 8:58 AM Procedure Note Manuel Fung MD - 02/07/2025 CLINICAL INFORMATION: Oropharyngeal dysphagia. TECHNIQUE: Lateral videofluoroscopy during oral administration of one ormore radiopaque diet consistencies. Reference air kerma: 1.2 mGy. COMPARISON: 01/26/2025. FINDINGS: Drinks Thin: Penetration. Mildly thick: No aspiration or penetration. Food Applesauce: No aspiration or penetration. Fruit: No aspiration or penetration. Cracker: No aspiration or penetration. IMPRESSION: * Penetration of thin liquid consistency. * Exam completed in conjunction with speech pathology. See speechpathology report in [facility] progress notes for details and recommendations. Approved by Resident Mathieu Jones DO on 02/07/2025 8:58 AM IManuel MD have personally reviewed the image(s) and agree withand/or edited the report Finalized by Manuel Fung MD on 02/07/2025 8:58 AM Vanessa Mccarthy MD IMG FLUOROSCOPY ORDERABLE S Final Result * Type and screen(includes indirect ethan) (02/07/2025 4:02 AM EDT) ABO A 02/07/2025 5:19 AM EDT [facility] RH Positive 02/07/2025 5:19 AM EDT [facility] Antibody Screen Negative 02/07/2025 5:19 AM EDT [facility] Blood Venous blood / Unknown 02/07/2025 4:02 AM EDT 02/07/2025 4:15 AM EDT Claus Felix MD BLOOD BANK TEST ORDERABLES Edite d Result - Final [facility] [address] [place] [address], [facility] [address] [place] [address], * Crossmatch RBC:Number of Units: 1 (02/07/2025 4:00 AM EDT) Blood component type [id number] BLOOD BANK - [employer] Unit number [id number] BL OOD BANK - [employer] Unit ABO A BLOOD BANK - [employer] Unit RH POS BLOOD BANK - [employer] Crossmatch Compatible BLOOD BA NK - MORGAN Status of unit TRANSFUSED BLOO D BANK - [employer] Expiration Date [id number] BLOOD BANK - [employer] BB Type Barcode 6200 BLOOD BANK - [employer] Blood Venous blood / Unknown 02/07/2025 4:00 AM EDT 02/07/2025 4:15 AM EDT us Claus Felix MD BLOOD BANK PRODUCT ORDERABLES Ed ited Result - Final BLOOD BANK - [facility] * (ABNORMAL) CBC auto differential (02/07/2025 2:17 AM EDT) WBC 4.0 4 - 11 x10E9/L 02/07/2025 3:47 AM EDT [facility] RBC Count 2.33(L) 3.8 - 5.2 X10E12/L 02/07/2025 3:47 AM EDT [facility] Hemoglobin 6.8(LL) 11.7 - 15.5 g/dL 02/07/2025 3:47 AM EDT [facility] Hematocrit 21.4(L) 35 - 47 % 02/07/2025 3:47 AM EDT [facility] MCV 92 80 - 100 fL 02/07/2025 3:47 AM EDT [facility] MCH 29.2 27 - 34 pg 02/07/2025 3:47 AM EDT [facility] MCHC 31.8(L) 32 - 36 g/dL 02/07/2025 3:47 AM EDT [facility] RDW 23.9(H) 11.5 - 15 % 02/07/2025 3:47 AM EDT [facility] Platelet Count 144(L) 150 - 450 X10E9/L 02/07/2025 3:47 AM EDT [facility] MPV 7.9 7 - 12 fL 02/07/2025 3:47 AM EDT [facility] Neutrophils Relatives 83 % 02/07/2025 3:47 AM EDT [facility] Comment:This is an appended report. These results have been appended to a previously preliminary verified report. Lymphocytes Relative 9 % 02/07/2025 3:47 AM EDT [facility] Comment:This is an appended report. These results have been appended to a previously preliminary verified report. Monocytes Relative 8 % 02/07/2025 3:47 AM EDT [facility] Comment:This is an appended report. These results have been appended to a previously preliminary verified report. Neutrophils Absolute (M) 3.3 1.5 - 6.6 10*3/uL 02/07/2025 3:47 AM EDT [facility] Comment:This is an appended report. These results have been appended to a previously preliminary verified report. Lymphocytes Absolute 0.4(L) 1.0 - 3.5 10*3/uL 02/07/2025 3:47 AM EDT [facility] Comment:This is an appended report. These results have been appended to a previously preliminary verified report. Monocytes Absolute 0.3 0.0 - 0.9 10*3/uL 02/07/2025 3:47 AM EDT [facility] Comment:This is an appended report. These results have been appended to a previously preliminary verified report. Anisocytosis 2+ 02/07/2025 3:47 AM EDT [facility] Comment:This is an appended report. These results have been appended to a previously preliminary verified report. Polychromasia 1+ 02/07/2025 3:47 AM EDT [facility] Comment:This is an appended report. These results have been appended to a previously preliminary verified report. Stomatocytes 2+ 02/07/2025 3:47 AM EDT [facility] Comment:This is an appended report. These results have been appended to a previously preliminary verified report. Differential Type CELLAVISION DIFFERENTIAL 02/07/2025 3:47 AM EDT [facility] Comment:This is an appended report. These results have been appended to a previously preliminary verified report. Blood Venous blood / Unknown 02/07/2025 2:17 AM EDT 02/07/2025 2:29 AM EDT Vanessa Mccarthy MD LAB BLOOD ORDERABLES Johanna de los santos Result [facility] [address] [place] [address], [place] [phone] * (ABNORMAL) Protime & INR (02/07/2025 2:17 AM EDT) PROTIME 24.7(H) 9.8 - 13.2 sec 02/07/2025 2:50 AM EDT [facility] INR 2.2(H) 0.9 - 1.2 02/07/2025 2:50 AM EDT [facility] Blood Venous blood / Unknown 02/07/2025 2:17 AM EDT 02/07/2025 2:29 AM EDT us Vanessa Mccarthy MD LAB BLOOD ORDERABLES Johanna l Result [facility] [address] [place] [address], * Phosphorus (02/07/2025 2:17 AM EDT) PHOSPHORUS 3.3 2.4 - 4.9 mg/dL 02/07/2025 2:59 AM EDT [facility] Blood Venous blood / Unknown 02/07/2025 2:17 AM EDT 02/07/2025 2:29 AM EDT us Vanessa Mccarthy MD LAB BLOOD ORDERABLES Johanna l Result [facility] [address] [place] [address], [place] [phone] * Magnesium (02/07/2025 2:17 AM EDT) MAGNESIUM 2.0 1.8 - 2.6 mg/dL 02/07/2025 2:59 AM EDT [facility] Blood Venous blood / Unknown 02/07/2025 2:17 AM EDT 02/07/2025 2:29 AM EDT us Vanessa Mccarthy MD LAB BLOOD ORDERABLES Johanna l Result [facility] [address] [place] [address], [place] [phone] * (ABNORMAL) Comprehensive metabolic panel (02/07/2025 2:17 AM EDT) SODIUM 147(H) 134 - 146 mmol/L 02/07/2025 2:59 AM EDT [facility] POTASSIUM 3.6 3.5 - 5.0 mmol/L 02/07/2025 2:59 AM EDT [facility] CHLORIDE 99 98 - 109 mmol/L 02/07/2025 2:59 AM EDT [facility] CARBON DIOXIDE 41(H) 22 - 32 mmol/L 02/07/2025 2:59 AM EDT [facility] ANION GAP 7 5 - 15 mmol/L 02/07/2025 2:59 AM EDT [facility] BLOOD UREA NITROGEN 23 5 - 27 mg/dL 02/07/2025 2:59 AM EDT [facility] CREATININE 0.39(L) 0.40 - 1.00 mg/dL 02/07/2025 2:59 AM EDT [facility] Comment:METHOD TRACEABLE TO IDMS STANDARD GLUCOSE 98 65 - 99 mg/dL 02/07/2025 2:59 AM EDT [facility] CALCIUM 8.6 8.5 - 10.5 mg/dL 02/07/2025 2:59 AM EDT [facility] TOTAL PROTEIN 4.9(L) 6.0 - 8.0 g/dL 02/07/2025 2:59 AM EDT [facility] ALBUMIN 3.2 3.2 - 5.3 g/dL 02/07/2025 2:59 AM EDT [facility] ALKALINE PHOSPHATASE 46 39 - 130 U/L 02/07/2025 2:59 AM EDT [facility] AST 10 <=41 U/L 02/07/2025 2:59 AM EDT [facility] ALT 15 <=31 U/L 02/07/2025 2:59 AM EDT [facility] BILIRUBIN,TOTAL 0.6 0.3 - 1.2 mg/dL 02/07/2025 2:59 AM EDT [facility] EGFR Non-Race Dependent >90 >=60 ml/min/1.7 3sq.m 02/07/2025 2:59 AM EDT [facility] Comment: Reported eGFR is based on the CKD-EPI 2020 equation that does not use a race coefficient. Blood Venous blood / Unknown 02/07/2025 2:17 AM EDT 02/07/2025 2:29 AM EDT Vanessa Mccarthy MD LAB BLOOD ORDERABLES Johanna l Result Performing Organization Address City/[facility]/ZIP Co de Phone Number [facility] [address] [place] [address], [place] [phone] * ABO Rh Repeat (02/07/2025 2:00 AM EDT) ABO A 02/07/2025 4:19 AM EDT [facility] RH Positive 02/07/2025 4:19 AM EDT [facility] 02/07/2025 2:00 AM EDT 02/07/2025 4:07 AM EDT Claus Felix MD BLOOD BANK TEST ORDERABLES Final Result [facility] [address] [place] [address], [place] * (ABNORMAL) Anti XA unfractionated heparin (02/07/2025 12:05 AM EDT) ANTI XA UFH 0.25(L) 0.30 - 0.70 IU/mL 02/07/2025 12:45 AM EDT [facility] Comment: Optimal time for testing is 6 hrs post dosage This test is specific for monitoring patients on UFH, and is not recommended for use with other Anti-Xa medications. Blood Venous blood / Unknown 02/07/2025 12:05 AM EDT 02/07/2025 12:12 AM EDT us Alejo Villalobos MD LAB BLOOD ORDERABLES Final Resul t Performing Organization Address [facility] Co de Phone Number [facility] [address] [place] [address], [place] [phone] * (ABNORMAL) Anti XA unfractionated heparin (02/06/2025 5:32 PM EDT) ANTI XA UFH 0.16(L) 0.30 - 0.70 IU/mL 02/06/2025 6:02 PM EDT [facility] Comment: Optimal time for testing is 6 hrs post dosage This test is specific for monitoring patients on UFH, and is not recommended for use with other Anti-Xa medications. Blood Venous blood / Unknown Line / Unknown 02/06/2025 5:32 PM EDT 02/06/2025 5:42 PM EDT us Alejo Villalobos MD LAB BLOOD ORDERABLES Final Resul t Performing Organization Address [facility] Phone Number [facility] [address] [place] [address], [place] [phone] * Potassium (02/06/2025 11:15 AM EDT) POTASSIUM 4.0 3.5 - 5.0 mmol/L 02/06/2025 12:15 PM EDT [facility] Blood Venous blood / Unknown 02/06/2025 11:15 AM EDT 02/06/2025 11:23 AM EDT us Alejo Villalobos MD LAB BLOOD ORDERABLES Final Resul t Performing Organization Address City/[facility] Co de Phone Number [facility] [address] [place] [address], [place] [phone] * (ABNORMAL) Anti XA unfractionated heparin (02/06/2025 11:15 AM EDT) Pathologist [facility] ANTI XA UFH 0.20(L) 0.30 - 0.70 IU/mL 02/06/2025 11:35 AM EDT [facility] Comment: Optimal time for testing is 6 hrs post dosage This test is specific for monitoring patients on UFH, and is not recommended for use with other Anti-Xa medications. Blood Venous blood / Unknown 02/06/2025 11:15 AM EDT 02/06/2025 11:23 AM EDT us Claus Felix MD LAB BLOOD ORDERABLES Final Resul t [facility] [address] [place] [address], * (ABNORMAL) Blood Gas, Arterial (02/06/2025 8:30 AM EDT) [facility] Sample type ARTERIAL 02/06/2025 9:32 AM EDT [facility] pH, Arterial 7.473(H) 7.350 - 7.450 02/06/2025 9:32 AM EDT [facility] pCO2, Arterial 60.1(H) 35.0 - 45.0 mmHg 02/06/2025 9:32 AM EDT [facility] PO2, Arterial 100 80 - 100 mmHg 02/06/2025 9:32 AM EDT [facility] Base, Excess 18.0(H) 0.0 - 2.0 mmol/L 02/06/2025 9:32 AM EDT [facility] HCO3, Arterial 44.1(H) 22.0 - 26.0 mmol/L 02/06/2025 9:32 AM T [facility] %O2 Saturation, Arterial 98.0 >90.0 % 02/06/2025 9:32 AM EDT [facility] Diego's test N/A 02/06/2025 9:32 AM EDT [facility] SPO2 97 % 02/06/2025 9:32 AM EDT [facility] Sample site A Line 02/06/2025 9:32 AM EDT [facility] Insp. O2 conc. 40 % 02/06/2025 9:32 AM EDT [facility] Source Of Oxygen NPPV 02/06/2025 9:32 AM EDT [facility] arterial (Blood, Arterial) 02/06/2025 8:30 AM EDT 02/06/2025 9:32 AM EDT us Alejo Villalobos MD LAB BLOOD ORDERABLES Final Resul t [facility] [address] [place] [address], [place] * Potassium (02/06/2025 7:07 AM EDT) POTASSIUM 3.6 3.5 - 5.0 mmol/L 02/06/2025 7:50 AM EDT [facility] Blood Venous blood / Unknown Line / Unknown 02/06/2025 7:07 AM EDT 02/06/2025 7:19 AM EDT us Claus Felix MD LAB BLOOD ORDERABLES Final Resul t Performing Organization Address City/[facility]/ZIP Co de Phone Number [facility] [address] [place] [address], [place] [phone] * APTT (02/06/2025 2:01 AM EDT) APTT 26 26 - 37 sec 02/06/2025 6:13 AM EDT [facility] Blood Venous blood / Unknown 02/06/2025 2:01 AM EDT 02/06/2025 2:13 AM EDT us Claus Felix MD LAB BLOOD ORDERABLES Final Resul t [facility] [address] [place] [id number], [place] [phone] * (ABNORMAL) CBC auto differential (02/06/2025 2:01 AM EDT) WBC 4.1 4 - 11 x10E9/L 02/06/2025 3:31 AM EDT [facility] RBC Count 2.68(L) 3.8 - 5.2 X10E12/L 02/06/2025 3:31 AM EDT [facility] Hemoglobin 7.8(L) 11.7 - 15.5 g/dL 02/06/2025 3:31 AM EDT [facility] Hematocrit 24.3(L) 35 - 47 % 02/06/2025 3:31 AM EDT [facility] MCV 91 80 - 100 fL 02/06/2025 3:31 AM EDT [facility] MCH 29.0 27 - 34 pg 02/06/2025 3:31 AM EDT [facility] MCHC 32.0 32 - 36 g/dL 02/06/2025 3:31 AM EDT [facility] RDW 24.4(H) 11.5 - 15 % 02/06/2025 3:31 AM EDT [facility] Platelet Count 161 150 - 450 X10E9/L 02/06/2025 3:31 AM EDT [facility] MPV 7.8 7 - 12 fL 02/06/2025 3:31 AM EDT [facility] % Bands Neutrophils 3 % 02/06/2025 3:31 AM EDT [facility] Comment:This is an appended report. These results have been appended to a previously preliminary verified report. Neutrophils Relatives 91 % 02/06/2025 3:31 AM EDT [facility] Comment:This is an appended report. These results have been appended to a previously preliminary verified report. Lymphocytes Relative 4 % 02/06/2025 3:31 AM EDT [facility] Comment:This is an appended report. These results have been appended to a previously preliminary verified report. Monocytes Relative 2 % 02/06/2025 3:31 AM EDT [facility] Comment:This is an appended report. These results have been appended to a previously preliminary verified report. Neutrophils Absolute (M) 3.8 1.5 - 6.6 10*3/uL 02/06/2025 3:31 AM EDT [facility] Comment:This is an appended report. These results have been appended to a previously preliminary verified report. Lymphocytes Absolute 0.2(L) 1.0 - 3.5 10*3/uL 02/06/2025 3:31 AM EDT [facility] Comment:This is an appended report. These results have been appended to a previously preliminary verified report. Monocytes Absolute 0.1 0.0 - 0.9 10*3/uL 02/06/2025 3:31 AM EDT [facility] Comment:This is an appended report. These results have been appended to a previously preliminary verified report. Anisocytosis 2+ 02/06/2025 3:31 AM EDT [facility] Comment:This is an appended report. These results have been appended to a previously preliminary verified report. Stomatocytes 1+ 02/06/2025 3:31 AM EDT [facility] Comment:This is an appended report. These results have been appended to a previously preliminary verified report. Differential Type CELLAVISION DIFFERENTIAL 02/06/2025 3:31 AM EDT [facility] Comment:This is an appended report. These results have been appended to a previously preliminary verified report. Blood Venous blood / Unknown 02/06/2025 2:01 AM EDT 02/06/2025 2:13 AM EDT us Vanessa Mccarthy MD LAB BLOOD ORDERABLES Johanna de los santos Result [facility] [address] [place] [address], [place] [phone] * (ABNORMAL) Protime & INR (02/06/2025 2:01 AM EDT) PROTIME 20.1(H) 9.8 - 13.2 sec 02/06/2025 3:11 AM EDT [facility] INR 1.8(H) 0.9 - 1.2 02/06/2025 3:11 AM EDT [facility] Blood Venous blood / Unknown 02/06/2025 2:01 AM EDT 02/06/2025 2:13 AM EDT us Vanessa Mccarthy MD LAB BLOOD ORDERABLES Johanna l Result [facility] [address] [place] [address], * Phosphorus (02/06/2025 2:01 AM EDT) PHOSPHORUS 4.6 2.4 - 4.9 mg/dL 02/06/2025 2:40 AM EDT [facility] Blood Venous blood / Unknown 02/06/2025 2:01 AM EDT 02/06/2025 2:13 AM EDT us Vaenssa Mccarthy MD LAB BLOOD ORDERABLES Johanna l Result [facility] [address] [place] [address], [place] [phone] * Magnesium (02/06/2025 2:01 AM EDT) MAGNESIUM 2.0 1.8 - 2.6 mg/dL 02/06/2025 2:40 AM EDT [facility] Blood Venous blood / Unknown 02/06/2025 2:01 AM EDT 02/06/2025 2:13 AM EDT us Vanessa Mccarthy MD LAB BLOOD ORDERABLES Johanna l Result [facility] [address] [place] [address], * (ABNORMAL) Comprehensive metabolic panel (02/06/2025 2:01 AM EDT) SODIUM 148(H) 134 - 146 mmol/L 02/06/2025 2:40 AM EDT [facility] POTASSIUM 3.4(L) 3.5 - 5.0 mmol/L 02/06/2025 2:40 AM EDT [facility] CHLORIDE 96(L) 98 - 109 mmol/L 02/06/2025 2:40 AM EDT [facility] CARBON DIOXIDE 44(H) 22 - 32 mmol/L 02/06/2025 2:40 AM EDT [facility] ANION GAP 8 5 - 15 mmol/L 02/06/2025 2:40 AM EDT [facility] BLOOD UREA NITROGEN 21 5 - 27 mg/dL 02/06/2025 2:40 AM EDT [facility] CREATININE 0.50 0.40 - 1.00 mg/dL 02/06/2025 2:40 AM EDT [facility] Comment:METHOD TRACEABLE TO IDMA STANDARD GLUCOSE 152(H) 65 - 99 mg/dL 02/06/2025 2:40 AM EDT [facility] CALCIUM 8.5 8.5 - 10.5 mg/dL 02/06/2025 2:40 AM EDT [facility] TOTAL PROTEIN 5.4(L) 6.0 - 8.0 g/dL 02/06/2025 2:40 AM EDT [facility] ALBUMIN 3.3 3.2 - 5.3 g/dL 02/06/2025 2:40 AM EDT [facility] ALKALINE PHOSPHATASE 53 39 - 130 U/L 02/06/2025 2:40 AM EDT [facility] AST 12 <=41 U/L 02/06/2025 2:40 AM EDT [facility] ALT 19 <=31 U/L 02/06/2025 2:40 AM EDT [facility] BILIRUBIN,TOTAL 0.6 0.3 - 1.2 mg/dL 02/06/2025 2:40 AM EDT [facility] EGFR Non-Race Dependent >90 >=60 ml/min/1.7 3sq.m 02/06/2025 2:40 AM EDT [facility] Comment: Reported eGFR is based on the CKD-EPI 2020 equation that does not use a race coefficient. Blood Venous blood / Unknown 02/06/2025 2:01 AM EDT 02/06/2025 2:13 AM EDT Vanessa Mccarthy MD LAB BLOOD ORDERABLES Johanna l Result [facility] [address] [place] [address], * Potassium (02/05/2025 12:51 PM EDT) POTASSIUM 4.5 3.5 - 5.0 mmol/L 02/05/2025 1:24 PM EDT [facility] Blood Venous blood / Unknown Line / Unknown 02/05/2025 12:51 PM EDT 02/05/2025 12:59 PM EDT Yusef Morales MD LAB BLOOD ORDERABLES Final Resul t [facility] [address] [place] [address], [place] [phone] * Blood culture #2 (02/05/2025 12:31 PM EDT) CULTURE RESULTS NO GROWTH 5 DAYS 02/10/2025 2:01 PM EDT [facility] Blood Venous blood / Unknown 02/05/2025 12:31 PM EDT 02/05/2025 12:31 PM EDT us Moath H Elhady DO MICROBIOLOGY - GENERAL ORDERAB LES Final Result [facility] [address] [place] [address], * Blood culture #1 (02/05/2025 12:31 PM EDT) CULTURE RESULTS NO GROWTH 5 DAYS 02/10/2025 2:01 PM EDT [facility] Blood Venous blood / Unknown 02/05/2025 12:31 PM EDT 02/05/2025 12:31 PM EDT Yazmin Rodgers DO MICROBIOLOGY - GENERAL ORDERAB LES Final Result Performing Organization Address City/[facility]/ZIP Co de Phone Number [facility] [address] [place] [address], * (ABNORMAL) B-type natriuretic peptide (02/05/2025 10:11 AM EDT) BNP 169(H) <=100 pg/mL 02/05/2025 10:51 AM EDT [facility] Blood Venous blood / Unknown Line / Unknown 02/05/2025 10:11 AM EDT 02/05/2025 10:22 AM EDT Uli Orlando MD LAB BLOOD ORDERABLES Final Re sult [facility] [address] [place] [address], [place] [phone] * Potassium (02/05/2025 8:01 AM EDT) POTASSIUM 3.7 3.5 - 5.0 mmol/L 02/05/2025 8:41 AM EDT [facility] Blood Venous blood / Unknown Line / Unknown 02/05/2025 8:01 AM EDT 02/05/2025 8:10 AM EDT us Deja Coffey MD LAB BLOOD ORDERABLES Final R esult [facility] [address] [place] [address], [place] [phone] * X-ray chest 1 view (02/05/2025 6:15 AM EDT) Anatomical Region Laterality Modality Body, Chest N/A Computed Radiogr aphy 02/05/2025 7:12 AM EDT Narrative 02/05/2025 8:00 AM EDT CLINICAL INFORMATION: Shortness of breath, difficulty breathing. TECHNIQUE: Chest radiograph, single AP view. COMPARISON: 02/04/2025. FINDINGS Endotracheal tube and right IJ catheter in similar position. Enteric tube sidehole projects over the stomach. Cardiomediastinal silhouette is unchanged. No pneumothorax. Small bilateral pleural effusions. Mild central pulmonary vascular congestion, similar to prior. IMPRESSION: * No significant interval change. Approved by Resident Mathieu Jones DO on 02/05/2025 7:12 AM Manuel Mclean have personally reviewed the image(s) and agree with and/or edited the report Finalized by Manuel Milligan on 02/05/2025 8:00 AM Procedure Note Manuel Milligan MD - 02/05/2025 CLINICAL INFORMATION: Shortness of breath, difficulty breathing. TECHNIQUE: Chest radiograph, single AP view. COMPARISON: 02/04/2025. FINDINGS Endotracheal tube and right IJ catheter in similar position. Enteric tubesidehole projects over the stomach. Cardiomediastinal silhouette is unchanged. No pneumothorax. Smallbilateral pleural effusions. Mild central pulmonary vascular congestion,similar to prior. IMPRESSION: * No significant interval change. Approved by Resident Mathieu Jones DO on 02/05/2025 7:12 AM Manuel Mclean have personally reviewed the image(s) and agree withand/or edited the report Finalized by Manuel Milligan on 02/05/2025 8:00 AM us Deja Coffey MD IMG DIAGNOSTIC IMAGING ORDER ALESSIO Final Result * (ABNORMAL) Blood Gas, Arterial (02/05/2025 4:35 AM EDT) Sample type ARTERIAL 02/05/2025 4:40 AM EDT [facility] pH, Arterial 7.516(H) 7.350 - 7.450 02/05/2025 4:40 AM EDT [facility] pCO2, Arterial 54.1(H) 35.0 - 45.0 mmHg 02/05/2025 4:40 AM EDT [facility] PO2, Arterial 84 80 - 100 mmHg 02/05/2025 4:40 AM EDT [facility] Base, Excess 19.0(H) 0.0 - 2.0 mmol/L 02/05/2025 4:40 AM EDT [facility] HCO3, Arterial 43.8(H) 22.0 - 26.0 mmol/L 02/05/2025 4:40 AM EDT [facility] %O2 Saturation, Arterial 97.0 >90.0 % 02/05/2025 4:40 AM EDT [facility] Diego's test N/A 02/05/2025 4:40 AM EDT [facility] SPO2 95 % 02/05/2025 4:40 AM T [facility] Sample site A Line 02/05/2025 4:40 AM EDT [facility] Insp. O2 conc. 40 % 02/05/2025 4:40 AM EDT [facility] Source Of Oxygen Vent 02/05/2025 4:40 AM EDT [facility] arterial (Blood, Arterial) 02/05/2025 4:35 AM EDT 02/05/2025 4:40 AM EDT us Alejo Villalobos MD LAB BLOOD ORDERABLES Final Resul t [facility] [address] [place] [address], [place] * (ABNORMAL) CBC auto differential (02/05/2025 2:52 AM EDT) WBC 11.3(H) 4 - 11 x10E9/L 02/05/2025 4:30 AM EDT [facility] RBC Count 2.65(L) 3.8 - 5.2 X10E12/L 02/05/2025 4:30 AM EDT [facility] Hemoglobin 7.6(L) 11.7 - 15.5 g/dL 02/05/2025 4:30 AM EDT [facility] Hematocrit 24.0(L) 35 - 47 % 02/05/2025 4:30 AM T [facility] MCV 91 80 - 100 fL 02/05/2025 4:30 AM T [facility] MCH 28.8 27 - 34 pg 02/05/2025 4:30 AM EDT [facility] MCHC 31.8(L) 32 - 36 g/dL 02/05/2025 4:30 AM T [facility] RDW 24.5(H) 11.5 - 15 % 02/05/2025 4:30 AM T [facility] Platelet Count 251 150 - 450 X10E9/L 02/05/2025 4:30 AM T [facility] MPV 7.8 7 - 12 fL 02/05/2025 4:30 AM [facility] % Bands Neutrophils 5 % 02/05/2025 4:30 AM T [facility] Comment:This is an appended report. These results have been appended to a previously preliminary verified report. Neutrophils Relatives 89 % 02/05/2025 4:30 AM EDT [facility] Comment:This is an appended report. These results have been appended to a previously preliminary verified report. Lymphocytes Relative 1 % 02/05/2025 4:30 AM T [facility] Comment:This is an appended report. These results have been appended to a previously preliminary verified report. Monocytes Relative 5 % 02/05/2025 4:30 AM T [facility] Comment:This is an appended report. These results have been appended to a previously preliminary verified report. Neutrophils Absolute (M) 10.6(H) 1.5 - 6.6 10*3/uL 02/05/2025 4:30 AM EDT [facility] Comment:This is an appended report. These results have been appended to a previously preliminary verified report. Lymphocytes Absolute 0.1(L) 1.0 - 3.5 10*3/uL 02/05/2025 4:30 AM EDT [facility] Comment:This is an appended report. These results have been appended to a previously preliminary verified report. Monocytes Absolute 0.5 0.0 - 0.9 10*3/uL 02/05/2025 4:30 AM EDT [facility] Comment:This is an appended report. These results have been appended to a previously preliminary verified report. Anisocytosis 2+ 02/05/2025 4:30 AM EDT [facility] Comment:This is an appended report. These results have been appended to a previously preliminary verified report. Stomatocytes 1+ 02/05/2025 4:30 AM EDT [facility] Comment:This is an appended report. These results have been appended to a previously preliminary verified report. Differential Type CELLAVISION DIFFERENTIAL 02/05/2025 4:30 AM EDT [facility] Comment:This is an appended report. These results have been appended to a previously preliminary verified report. Blood Venous blood / Unknown 02/05/2025 2:52 AM EDT 02/05/2025 3:06 AM EDT us Vanessa Mccarthy MD LAB BLOOD ORDERABLES Johanna l Result [facility] [address] [place] [address], [place] [phone] * (ABNORMAL) Protime & INR (02/05/2025 2:52 AM EDT) PROTIME 32.2(H) 9.8 - 13.2 sec 02/05/2025 3:19 AM EDT [facility] INR 2.8(H) 0.9 - 1.2 02/05/2025 3:19 AM EDT [facility] Blood Venous blood / Unknown 02/05/2025 2:52 AM EDT 02/05/2025 3:06 AM EDT us Vanessa Mccarthy MD LAB BLOOD ORDERABLES Johanna l Result [facility] [address] [place] [address], [place] [phone] * Magnesium (02/05/2025 2:52 AM EDT) Pathologist [facility] MAGNESIUM 2.6 1.8 - 2.6 mg/dL 02/05/2025 3:38 AM EDT [facility] Blood Venous blood / Unknown 02/05/2025 2:52 AM EDT 02/05/2025 3:06 AM EDT Vanessa Mccarthy MD LAB BLOOD ORDERABLES Johanna l Result Performing Organization Address City/[facility]/ZIP Co de Phone Number [facility] [address] [place] [address], [place] [phone] * (ABNORMAL) Comprehensive metabolic panel (02/05/2025 2:52 AM EDT) SODIUM 145 134 - 146 mmol/L 02/05/2025 3:38 AM EDT [facility] POTASSIUM 3.6 3.5 - 5.0 mmol/L 02/05/2025 3:38 AM EDT [facility] CHLORIDE 94(L) 98 - 109 mmol/L 02/05/2025 3:38 AM EDT [facility] CARBON DIOXIDE 43(H) 22 - 32 mmol/L 02/05/2025 3:38 AM EDT [facility] ANION GAP 8 5 - 15 mmol/L 02/05/2025 3:38 AM EDT [facility] BLOOD UREA NITROGEN 17 5 - 27 mg/dL 02/05/2025 3:38 AM EDT [facility] CREATININE 0.55 0.40 - 1.00 mg/dL 02/05/2025 3:38 AM EDT [facility] Comment:METHOD TRACEABLE TO IDMA STANDARD GLUCOSE 135(H) 65 - 99 mg/dL 02/05/2025 3:38 AM EDT [facility] CALCIUM 8.6 8.5 - 10.5 mg/dL 02/05/2025 3:38 AM EDT [facility] TOTAL PROTEIN 5.1(L) 6.0 - 8.0 g/dL 02/05/2025 3:38 AM EDT [facility] ALBUMIN 3.2 3.2 - 5.3 g/dL 02/05/2025 3:38 AM EDT [facility] ALKALINE PHOSPHATASE 55 39 - 130 U/L 02/05/2025 3:38 AM EDT [facility] AST 15 <=41 U/L 02/05/2025 3:38 AM EDT [facility] ALT 23 <=31 U/L 02/05/2025 3:38 AM EDT [facility] BILIRUBIN,TOTAL 0.7 0.3 - 1.2 mg/dL 02/05/2025 3:38 AM EDT [facility] EGFR Non-Race Dependent >90 >=60 ml/min/1.7 3sq.m 02/05/2025 3:38 AM EDT [facility] Comment: Reported eGFR is based on the CKD-EPI 2020 equation that does not use a race coefficient. Blood Venous blood / Unknown 02/05/2025 2:52 AM EDT 02/05/2025 3:06 AM EDT us Vanessa Mccarthy MD LAB BLOOD ORDERABLES Johanna l Result [facility] [address] [place] [address], [place] [phone] * Phosphorus (02/05/2025 2:52 AM EDT) PHOSPHORUS 3.4 2.4 - 4.9 mg/dL 02/05/2025 3:38 AM EDT [facility] Blood Venous blood / Unknown 02/05/2025 2:52 AM EDT 02/05/2025 3:06 AM EDT Vanessa Mccarthy MD LAB BLOOD ORDERABLES Johanna l Result [facility] [address] [place] [address], * ECG 12 Lead (02/05/2025 1:10 AM EDT) 02/05/2025 1:10 AM EDT Narrative [facility] - 02/05/2025 2:17 PM EDT Deja Coffey MD ECG ORDERABLES Final Result Performing Organization Address [facility]/ZIP Co de Phone Number [facility] * (ABNORMAL) Ionized magnesium (02/04/2025 10:32 PM EDT) IONIZED MAGNESIUM 0.81(H) 0.45 - 0.74 mmol/L 02/04/2025 11:19 PM EDT [facility] Blood Venous blood / Unknown 02/04/2025 10:32 PM EDT 02/04/2025 10:42 PM EDT Yumiko Childers MD LAB BLOOD ORDERABLES Final Re sult Performing Organization Address City/[facility]/ZIP Co de Phone Number [facility] [address] [place] [address], * (ABNORMAL) Phosphorus (02/04/2025 8:02 PM EDT) PHOSPHORUS 2.0(L) 2.4 - 4.9 mg/dL 02/04/2025 9:51 PM EDT [facility] Blood Venous blood / Unknown 02/04/2025 8:02 PM EDT 02/04/2025 9:21 PM EDT us Yumiko Childers MD LAB BLOOD ORDERABLES Final Re sult [facility] [address] [place] [address], [place] [phone] * Potassium (02/04/2025 5:55 PM EDT) POTASSIUM 4.2 3.5 - 5.0 mmol/L 02/04/2025 6:40 PM EDT [facility] Blood Venous blood / Unknown 02/04/2025 5:55 PM EDT 02/04/2025 6:09 PM EDT us Yumiko Childers MD LAB BLOOD ORDERABLES Final Re sult Performing Organization Address City/[facility]/ZIP Co de Phone Number [facility] [address] [place] [address], * (ABNORMAL) Troponin I, High Sensitivity 1 Hour (02/04/2025 5:55 PM EDT) TROPONIN I, HIGH SENSITIVITY 81(H) <16 ng/L 02/04/2025 6:42 PM EDT [facility] Blood Venous blood / Unknown 02/04/2025 5:55 PM EDT 02/04/2025 6:09 PM EDT Narrative [facility] - 02/04/2025 6:42 PM EDT Elevations of hs-Troponin may be due to causes other than myocardial ischemia. Recommend serial hs-Troponin testing be performed. For the initial evaluation and management of chest pain patients, refer to the algorithms linked below. Emergency Patient: [email or web address] [email or web address]: [email or web address] Vanessa Mccarthy MD LAB BLOOD ORDERABLES Johanna l Result Performing Organization Address City/[facility]/ZIP Co de Phone Number [facility] [address] [place] [address], [place] [phone] * ECG 12 lead (02/04/2025 3:02 PM EDT) 02/04/2025 3:02 PM EDT Narrative [facility] - 02/05/2025 2:17 PM EDT Khang Andino MD ECG ORDERABLES Final Resul t Performing Organization Address [facility]/[place] de Phone Number [facility] * (ABNORMAL) BLOOD CULTURE IDENTIFICATION PANEL (02/04/2025 1:35 PM EDT) Staphylococcus species PCR Detected( A) Not Detected 02/05/2025 10:49 AM EDT [facility] Comment: (not S. aureus, S.epidermidis, or S.lugdunensis) This is an appended report. These results have been appended to a previously final verified report. Blood Venous blood / Unknown Line / Unknown 02/04/2025 1:35 PM EDT 02/04/2025 4:01 PM EDT Yumiko Childers MD MICROBIOLOGY - GENERAL ORDERA BLES Edited Result - Final Performing Organization Address [facility] Co de Phone Number [facility] [address] [place] [address], [place] [phone] * (ABNORMAL) Blood culture #2 (02/04/2025 1:35 PM EDT) CULTURE RESULTS Staphylococcus hominis(A) 02/07/2025 7:50 AM EDT [facility] Comment: Not S. lugdunensis Additional culture positive. Susceptibility testing initiated. GRAM STAIN Gram positive cocci in clusters(A) 02/07/2025 7:50 AM EDT [facility] Blood Venous blood / Unknown Line / Unknown 02/04/2025 1:35 PM EDT 02/04/2025 4:01 PM EDT [facility] - 02/07/2025 7:50 AM EDT Suboptimal volume of blood collected, Results may be affected. Organism Antibiotic Method Susceptibility Staphylococcus hominis Clindamycin >=4.0: Resistant Staphylococcus hominis Doxycycline 4.0: Susceptible Staphylococcus hominis Oxacillin >=4.0: Resistant Staphylococcus hominis Trimethoprim + Sulfamethoxazole 4.0: Resistant Staphylococcus hominis Vancomycin 2.0: Susceptible Staphylococcus hominis Cefazolin Resistant (deduced) Staphylococcus hominis Susceptibility Comment us Yumiko Silvat MICROBIOLOGY - GENERAL ORDERA BLES Final Result [facility] [address] [place] [address], * (ABNORMAL) Blood culture #1 (02/04/2025 1:35 PM EDT) CULTURE RESULTS Staphylococcus hominis(A) 02/07/2025 7:49 AM EDT [facility] Comment: Not S. lugdunensis Additional culture positive. Susceptibility testing initiated. GRAM STAIN Gram positive cocci in clusters(A) 02/07/2025 7:49 AM EDT [facility] Blood Venous blood / Unknown Line / Unknown 02/04/2025 1:35 PM EDT 02/04/2025 4:02 PM EDT [facility] - 02/07/2025 7:49 AM EDT Suboptimal volume of blood collected, Results may be affected. Organism Antibiotic Method Susceptibility Staphylococcus hominis Clindamycin >=4.0: Resistant Staphylococcus hominis Doxycycline 4.0: Susceptible Staphylococcus hominis Oxacillin >=4.0: Resistant Staphylococcus hominis Trimethoprim + Sulfamethoxazole 4.0: Resistant Staphylococcus hominis Vancomycin 2.0: Susceptible Staphylococcus hominis Cefazolin Resistant (deduced) Staphylococcus hominis Susceptibility Comment Yumiko Bearden Al-Tkrit MICROBIOLOGY - GENERAL ORDERA BLES Final Result [facility] [address] [place] [address], [place] [phone] * X-ray chest 1 view (02/04/2025 1:01 PM EDT) Anatomical Region Laterality Modality Body, Chest N/A Computed Radiogr aphy 02/04/2025 1:20 PM EDT Narrative 02/04/2025 1:21 PM EDT Chest radiograph dated: 02/04/2025. Reason for study: new line cvc. Comparison studies: Chest x-ray from 01/28/2025. Technique: Portable upright chest view AP. Findings/impression: 1. Endotracheal tube distal tip is approximately 3.5 cm from the diane. Right central venous catheter with the distal tip at the central right brachiocephalic vein. Enteric tube is seen coursing below the level of the diaphragm with the distal tip not seen. 2. Nonenlarged cardiomediastinal silhouette. Possible trace interstitial edema more pronounced on the right. 3. Small bilateral pleural effusions. Scant bibasilar airspace opacities which may relate to subsegmental atelectatic change versus developing pneumonia in the appropriate clinical setting. Minimally improved aeration of right lung base. 4. No definitive pneumothorax. Finalized by Aden Ellsworth MD on 02/04/2025 1:21 PM Procedure Note Aden Ellsworth MD - 02/04/2025 Chest radiograph dated: 02/04/2025. Reason for study: new line cvc. Comparison studies: Chest x-ray from 01/28/2025. Technique: Portable upright chest view AP. Findings/impression: 1. Endotracheal tube distal tip is approximately 3.5 cm from the diane.Right central venous catheter with the distal tip at the central rightbrachiocephalic vein. Enteric tube is seen coursing below the level of thediaphragm with the distal tip not seen. 2. Nonenlarged cardiomediastinal silhouette. Possible trace interstitialedema more pronounced on the right. 3. Small bilateral pleural effusions. Scant bibasilar airspace opacitieswhich may relate to subsegmental atelectatic change versus developingpneumonia in the appropriate clinical setting. Minimally improved aerationof right lung base. 4. No definitive pneumothorax. Finalized by Aden Ellsworth MD on 02/04/2025 1:21 PM us Yumiko Serrato-Tkrit IMG DIAGNOSTIC IMAGING ORDERA BLES Final Result * (ABNORMAL) Blood Gas, Arterial (02/04/2025 12:13 PM EDT) Sample type ARTERIAL 02/04/2025 12:23 PM [facility] pH, Arterial 7.555(H) 7.350 - 7.450 02/04/2025 12:23 PM [facility] pCO2, Arterial 55.5(H) 35.0 - 45.0 mmHg 02/04/2025 12:23 PM [facility] PO2, Arterial 161(H) 80 - 100 mmHg 02/04/2025 12:23 PM [facility] Base, Excess 24.0(H) 0.0 - 2.0 mmol/L 02/04/2025 12:23 PM [facility] HCO3, Arterial 49.1(H) 22.0 - 26.0 mmol/L 02/04/2025 12:23 PM [facility] %O2 Saturation, Arterial 100.0 >90.0 % 02/04/2025 12:23 PM [facility] Diego's test Pass 02/04/2025 12:23 PM [facility] SPO2 161 % 02/04/2025 12:23 PM [facility] Sample site R Brach 02/04/2025 12:23 PM EDT [facility] Insp. O2 conc. 50 % 02/04/2025 12:23 PM EDT [facility] Source Of Oxygen Vent 02/04/2025 12:23 PM EDT [facility] arterial (Blood, Arterial) 02/04/2025 12:13 PM EDT 02/04/2025 12:23 PM EDT Alejo Villalobos MD LAB BLOOD ORDERABLES Final Resul t [facility] [address] [facility] [place] [address], [place] * Ferritin (02/04/2025 12:08 PM EDT) FERRITIN 90 11 - 307 ng/mL 02/04/2025 2:25 PM EDT [facility] Blood 02/04/2025 12:0 8 PM EDT 02/04/2025 1:24 PM EDT Vanessa Mccarthy MD LAB BLOOD ORDERABLES Johanna l Result [facility] [address] [place] [address], [place] [phone] * (ABNORMAL) Iron and TIBC (02/04/2025 12:08 PM EDT) IRON 34(L) 50 - 170 ug/dL 02/04/2025 2:03 PM EDT [facility] TRANSFERRIN 215 168 - 336 mg/dL 02/04/2025 2:03 PM EDT [facility] IRON BINDING 301 250 - 425 ug/dL 02/04/2025 2:03 PM EDT [facility] IRON SATURATION 11(L) 15 - 50 % SATURATION 02/04/2025 2:03 PM EDT [facility] Blood Venous blood / Unknown 02/04/2025 12:08 PM EDT 02/04/2025 1:24 PM EDT us Vanessa Mccarthy MD LAB BLOOD ORDERABLES Johanna l Result [facility] [address] [place] [address], [place] [phone] * Folate (02/04/2025 12:08 PM EDT) FOLIC ACID 12.0 >5.8 ng/mL 02/04/2025 2:25 PM EDT [facility] Blood Venous blood / Unknown 02/04/2025 12:08 PM EDT 02/04/2025 1:24 PM EDT us Vanessa Mccarthy MD LAB BLOOD ORDERABLES Johanna l Result [facility] [address] [place] [address], [place] [phone] * Vitamin B12 (02/04/2025 12:08 PM EDT) VITAMIN B12 200 180 - 914 pg/mL 02/04/2025 2:25 PM EDT [facility] Blood Venous blood / Unknown 02/04/2025 12:08 PM EDT 02/04/2025 1:24 PM EDT us Vanessa Mccarthy MD LAB BLOOD ORDERABLES Johanna l Result [facility] [address] [place] [address], [place] [phone] * Lactate w/ Reflex (02/04/2025 12:08 PM EDT) LACTATE W/REFLEX 1.6 0.4 - 2.0 mmol/L 02/04/2025 1:54 PM EDT [facility] Blood Venous blood / Unknown 02/04/2025 12:08 PM EDT 02/04/2025 1:24 PM EDT Narrative [facility] - 02/04/2025 1:54 PM EDT Result did not trigger repeat Lactate, re-order if needed. Vanessa Mccarthy MD LAB BLOOD ORDERABLES Johanna l Result [facility] [address] [place] [address], [place] [phone] * (ABNORMAL) Troponin I, High Sensitivity 0 Hour (02/04/2025 12:08 PM EDT) Pathologist [facility] TROPONIN I, HIGH SENSITIVITY 96(H) <16 ng/L 02/04/2025 3:05 PM EDT [facility] Blood Venous blood / Unknown 02/04/2025 12:08 PM EDT 02/04/2025 1:24 PM EDT Vanessa Mccarthy MD LAB BLOOD ORDERABLES Johanna l Result [facility] [address] [place] [address], [place] [phone] * (ABNORMAL) CBC auto differential (02/04/2025 12:08 PM EDT) WBC 11.9(H) 4 - 11 x10E9/L 02/04/2025 2:35 PM EDT [facility] RBC Count 2.80(L) 3.8 - 5.2 X10E12/L 02/04/2025 2:35 PM EDT [facility] Hemoglobin 7.9(L) 11.7 - 15.5 g/dL 02/04/2025 2:35 PM EDT [facility] Hematocrit 25.6(L) 35 - 47 % 02/04/2025 2:35 PM EDT [facility] MCV 92 80 - 100 fL 02/04/2025 2:35 PM EDT [facility] MCH 28.3 27 - 34 pg 02/04/2025 2:35 PM T [facility] MCHC 30.9(L) 32 - 36 g/dL 02/04/2025 2:35 PM EDT [facility] RDW 23.3(H) 11.5 - 15 % 02/04/2025 2:35 PM EDT [facility] Platelet Count 236 150 - 450 X10E9/L 02/04/2025 2:35 PM EDT [facility] MPV 7.9 7 - 12 fL 02/04/2025 2:35 PM EDT [facility] % Bands Neutrophils 13 % 02/04/2025 2:35 PM T [facility] Comment:This is an appended report. These results have been appended to a previously preliminary verified report. Neutrophils Relatives 75 % 02/04/2025 2:35 PM EDT [facility] Comment:This is an appended report. These results have been appended to a previously preliminary verified report. Lymphocytes Relative 6 % 02/04/2025 2:35 PM EDT [facility] Comment:This is an appended report. These results have been appended to a previously preliminary verified report. Monocytes Relative 6 % 02/04/2025 2:35 PM T [facility] Comment:This is an appended report. These results have been appended to a previously preliminary verified report. Neutrophils Absolute (M) 10.5(H) 1.5 - 6.6 10*3/uL 02/04/2025 2:35 PM EDT [facility] Comment:This is an appended report. These results have been appended to a previously preliminary verified report. Lymphocytes Absolute 0.7(L) 1.0 - 3.5 10*3/uL 02/04/2025 2:35 PM EDT [facility] Comment:This is an appended report. These results have been appended to a previously preliminary verified report. Monocytes Absolute 0.7 0.0 - 0.9 10*3/uL 02/04/2025 2:35 PM EDT [facility] Comment:This is an appended report. These results have been appended to a previously preliminary verified report. Anisocytosis 2+ 02/04/2025 2:35 PM EDT [facility] Comment:This is an appended report. These results have been appended to a previously preliminary verified report. Polychromasia 1+ 02/04/2025 2:35 PM EDT [facility] Comment:This is an appended report. These results have been appended to a previously preliminary verified report. Target Cells 1+ 02/04/2025 2:35 PM EDT [facility] Comment:This is an appended report. These results have been appended to a previously preliminary verified report. Differential Type MANUAL DIFFERENTIAL 02/04/2025 2:35 PM EDT [facility] Comment:This is an appended report. These results have been appended to a previously preliminary verified report. Blood Venous blood / Unknown 02/04/2025 12:08 PM EDT 02/04/2025 1:23 PM EDT us Vanessa Mccarthy MD LAB BLOOD ORDERABLES Johanna l Result [facility] [address] [place] [address], [place] [phone] * (ABNORMAL) Protime & INR (02/04/2025 12:08 PM EDT) PROTIME 36.4(H) 9.8 - 13.2 sec 02/04/2025 1:36 PM EDT [facility] INR 3.2(H) 0.9 - 1.2 02/04/2025 1:36 PM EDT [facility] Blood Venous blood / Unknown 02/04/2025 12:08 PM EDT 02/04/2025 1:23 PM EDT us Vanessa Mccarthy MD LAB BLOOD ORDERABLES Johanna l Result [facility] [address] [place] [address], * (ABNORMAL) Phosphorus (02/04/2025 12:08 PM EDT) PHOSPHORUS 2.1(L) 2.4 - 4.9 mg/dL 02/04/2025 2:03 PM EDT [facility] Blood Venous blood / Unknown 02/04/2025 12:08 PM EDT 02/04/2025 1:24 PM EDT us Vanessa Mccarthy MD LAB BLOOD ORDERABLES Johanna l Result Performing Organization Address City/[facility]/ZIP Co de Phone Number [facility] [address] [place] [address], * (ABNORMAL) Magnesium (02/04/2025 12:08 PM EDT) MAGNESIUM 1.6(L) 1.8 - 2.6 mg/dL 02/04/2025 2:03 PM EDT [facility] Blood Venous blood / Unknown 02/04/2025 12:08 PM EDT 02/04/2025 1:24 PM EDT us Vanessa Mccarthy MD LAB BLOOD ORDERABLES Johanna l Result [facility] [address] [place] [address], [place] [phone] * (ABNORMAL) Comprehensive metabolic panel (02/04/2025 12:08 PM EDT) SODIUM 145 134 - 146 mmol/L 02/04/2025 2:03 PM EDT [facility] POTASSIUM 3.7 3.5 - 5.0 mmol/L 02/04/2025 2:03 PM EDT [facility] CHLORIDE 91(L) 98 - 109 mmol/L 02/04/2025 2:03 PM [facility] CARBON DIOXIDE >45(H) 22 - 32 mmol/L 02/04/2025 2:03 PM [facility] ANION GAP <9 5 - 15 mmol/L 02/04/2025 2:03 PM [facility] BLOOD UREA NITROGEN 12 5 - 27 mg/dL 02/04/2025 2:03 PM [facility] CREATININE 0.39(L) 0.40 - 1.00 mg/dL 02/04/2025 2:03 PM [facility] Comment:METHOD TRACEABLE TO IDMA STANDARD GLUCOSE 108(H) 65 - 99 mg/dL 02/04/2025 2:03 PM [facility] CALCIUM 8.2(L) 8.5 - 10.5 mg/dL 02/04/2025 2:03 PM [facility] TOTAL PROTEIN 5.1(L) 6.0 - 8.0 g/dL 02/04/2025 2:03 PM [facility] ALBUMIN 3.2 3.2 - 5.3 g/dL 02/04/2025 2:03 PM [facility] ALKALINE PHOSPHATASE 65 39 - 130 U/L 02/04/2025 2:03 PM [facility] AST 26 <=41 U/L 02/04/2025 2:03 PM [facility] ALT 26 <=31 U/L 02/04/2025 2:03 PM [facility] BILIRUBIN,TOTAL 0.8 0.3 - 1.2 mg/dL 02/04/2025 2:03 PM [facility] EGFR Non-Race Dependent >90 >=60 ml/min/1.7 3sq.m 02/04/2025 2:03 PM [facility] Comment: Reported eGFR is based on the CKD-EPI 2020 equation that does not use a race coefficient. Blood Venous blood / Unknown 02/04/2025 12:08 PM EDT 02/04/2025 1:24 PM EDT us Vanessa Mccarthy MD LAB BLOOD ORDERABLES Johanna l Result [facility] [address] [place] [address], [place] [phone] * (ABNORMAL) B-type natriuretic peptide (02/04/2025 12:08 PM EDT) BNP 302(H) <=100 pg/mL 02/04/2025 2:27 PM EDT [facility] Blood Venous blood / Unknown 02/04/2025 12:08 PM EDT 02/04/2025 1:23 PM EDT us Vanessa Mccarthy MD LAB BLOOD ORDERABLES Johanna l Result Performing Organization Address City/[facility] Co de Phone Number [facility] [address] [place] [address], [place] [phone] * (ABNORMAL) Thyroid profile includes TSH FT4 (02/04/2025 12:08 PM EDT) [facility] FREE T4 0.82 0.61 - 1.60 ng/dL 02/04/2025 2:25 PM EDT [facility] TSH 0.13(L) 0.49 - 4.67 uIU/mL 02/04/2025 2:25 PM EDT [facility] Blood Venous blood / Unknown 02/04/2025 12:08 PM EDT 02/04/2025 1:24 PM EDT us Vanessa Mccarthy MD LAB BLOOD ORDERABLES Johanna l Result [facility] [address] [place] [address], [place] [phone] * Hemoglobin A1c (02/04/2025 12:08 PM EDT) Pathologist [facility] HEMOGLOBIN A1C 4.8 4.4 - 5.6 % 02/05/2025 8:42 AM EDT [facility] Comment: ADA Guidelines Result HgbA1c Normal : less than 5.7 % Prediabetes : 5.7 % to 6.4 % Diabetes : > 6.4 % Use with caution in patients with abnormal hemoglobin variants as the half-life of red blood cells and in vivo glycation rates are affected. EST. AVERAGE GLUCOSE 91 mg/dL 02/05/2025 8:42 AM EDT [facility] Blood Venous blood / Unknown 02/04/2025 12:08 PM EDT 02/04/2025 1:23 PM EDT us Vanessa Mccarthy MD LAB BLOOD ORDERABLES Johanna l Result Performing Organization Address City/[facility]/ZIP Co de Phone Number [facility] [address] [place] [address], [place] [phone] * ECG 12 Lead (02/04/2025 11:59 AM EDT) 02/04/2025 11:5 9 AM EDT Narrative [facility] - 02/05/2025 2:17 PM EDT us Vanessa Mccarthy MD ECG ORDERABLES Final Res ult Performing Organization Address City/[facility]/ZIP Co de Phone Number [facility] * Resp Pathogens Panel/SARS CoV-2 (02/04/2025 11:47 AM EDT) [facility] SARS COV 2 BY PCR Not Detected Not Detected 02/04/2025 12:56 PM EDT [facility] ADENOVIRUS Not Detected Not Detected 02/04/2025 12:56 PM EDT [facility] CORONAVIRUS 229E Not Detected Not Detected 02/04/2025 12:56 PM EDT [facility] CORONAVIRUS HKU1 Not Detected Not Detected 02/04/2025 12:56 PM EDT [facility] CORONAVIRUS NL63 Not Detected Not Detected 02/04/2025 12:56 PM EDT [facility] CORONAVIRUS OC43 Not Detected Not Detected 02/04/2025 12:56 PM EDT [facility] HUMAN METAPNEUVIRUS Not Detected Not Detected 02/04/2025 12:56 PM EDT [facility] RHINO/ENTEROVIRU S Not Detected Not Detected 02/04/2025 12:56 PM EDT [facility] INFLUENZA A Not Detected Not Detected 02/04/2025 12:56 PM EDT [facility] INFLUENZA B Not Detected Not Detected 02/04/2025 12:56 PM EDT [facility] PARAINFLUENZA 1 Not Detected Not Detected 02/04/2025 12:56 PM EDT [facility] PARAINFLUENZA 2 Not Detected Not Detected 02/04/2025 12:56 PM EDT [facility] PARAINFLUENZA 3 Not Detected Not Detected 02/04/2025 12:56 PM EDT [facility] PARAINFLUENZA 4 Not Detected Not Detected 02/04/2025 12:56 PM EDT [facility] RESP SYNCYTIAL VIRUS Not Detected Not Detected 02/04/2025 12:56 PM EDT [facility] BORD PARAPERTUSSIS Not Detected Not Detected 02/04/2025 12:56 PM EDT [facility] BORDETELLA PERTUSSIS Not Detected Not Detected 02/04/2025 12:56 PM EDT [facility] CHLAM.PNEUMONIAE Not Detected Not Detected 02/04/2025 12:56 PM EDT [facility] MYCOPLASMA PNEUMONIAE Not Detected Not Detected 02/04/2025 12:56 PM EDT [facility] Swab Nasopharyngeal structure / Unknown 02/04/2025 11:47 AM EDT 02/04/2025 11:59 AM EDT [facility] - 02/04/2025 12:56 PM EDT The BioFire Respiratory Panel 2.1 (RP2.1) is a multiplexed nucleic acid test intended for the simultaneous qualitative detection and differentiation of nucleic acid from multiple viral and bacterial respiratory organisms, including nucleic acid from Severe Acute Respiratory Syndrome Coronavirus 2 (SARS-CoV-2), in nasopharyngeal swabs obtained from individuals suspected of COVID-19 by their healthcare provider. Testing is limited to laboratories certified under the Clinical Laboratory Improvement Amendments of 1988 (CLIA), to perform high complexity or moderate complexity tests. SARS-CoV-2 RNA and nucleic acids from the other respiratory viral and bacterial organisms identified by this test are generally detectable in nasopharyngeal swabs during the acute phase of infection. The detection and identification of specific viral and bacterial nucleic acids from individuals exhibiting signs and/or symptoms of respiratory infection is indicative of the presence of the identified microorganism and aids in the diagnosis of respiratory infection if used in conjunction with other clinical and epidemiological information. Positive results are indicative of the presence of the identified organism, but do not rule out co-infection with other pathogens. The agent(s) detected by the BioFire RP2.1 may not be the definite cause of disease and clinical correlation with patient history and other diagnostic information is necessary to determine patient infection status. Negative results in the setting of a respiratory illness may be due to infection with pathogens not detected by this test, or lower respiratory tract infection that may not be detected by a nasopharyngeal specimen. Negative results do not preclude SARS-CoV-2 infection and should not be used as the sole basis for patient management decisions. Negative RADHA-CoV-2 results must be combined with clinical observations, patient history and epidemiological information. Negative results for other organisms identified by the test may require additional laboratory testing when evaluating a patient with possible respiratory tract infection. us Vanessa Mccarthy MD MICROBIOLOGY - GENERAL OR DERABLES Final Result [facility] [address] [place] [address], * Mrsa Pcr nasal swab (02/04/2025 11:47 AM EDT) MRSA PCR NASAL Negative Negative 02/04/2025 1:18 PM EDT [facility] Swab Structure of anterior naris / Unknown 02/04/2025 11:47 AM EDT 02/04/2025 11:59 AM EDT us Vanessa Mccarthy MD MICROBIOLOGY - GENERAL OR DERABLES Final Result [facility] [address] [place] [address], [place] [phone] * (ABNORMAL) Lower resp/sputum culture inc gram stain: Patient acquired (02/04/2025 11:47 AM EDT) CULTURE RESULTS Few Mackenzie albicans(A) 02/06/2025 1:55 PM EDT [facility] CULTURE RESULTS Rare Non-lactose fermenting gram negative bacilli(A) 02/06/2025 1:55 PM EDT [facility] Comment:Encapsulated GRAM STAIN >25 White Blood Cells/LPF(A) 02/06/2025 1:55 PM EDT [facility] GRAM STAIN 1 to 9 Squamous Epithelial Cells/LPF(A) 02/06/2025 1:55 PM EDT [facility] GRAM STAIN 0 Ciliated Epithelial Cells/LPF(A) 02/06/2025 1:55 PM EDT [facility] GRAM STAIN Moderate Gram positive cocci in pairs, chains and clusters(A) 02/06/2025 1:55 PM EDT [facility] GRAM STAIN Few Gram negative bacilli(A) 02/06/2025 1:55 PM EDT [facility] GRAM STAIN Few Yeast(A) 02/06/2025 1:55 PM EDT [facility] Aspirate Bronchial structure / Unknown 02/04/2025 11:47 AM EDT 02/04/2025 4:19 PM EDT Narrative [facility] - 02/06/2025 1:55 PM EDT Along with Many Normal Respiratory Teresita. us Vanessa Mccarthy MD MICROBIOLOGY - GENERAL OR DERABLES Final Result [facility] [address] [place] [address], [place] [phone] * (ABNORMAL) Urine Culture Urine, Indwelling Catheter (02/04/2025 11:43 AM EDT) CULTURE RESULTS 10,000-50,0 00 CFU/mL Mackenzie albicans(A) 02/06/2025 11:52 AM EDT [facility] Urine (Urine, Indwelling Catheter) 02/04/2025 11:43 AM EDT 02/04/2025 9:25 PM EDT us Vanessa Mccarthy MD MICROBIOLOGY - GENERAL OR DERABLES Final Result [facility] [address] [place] [address], [place] [phone] * Urinalysis (02/04/2025 11:43 AM EDT) COLOR Yellow Yellow, Colorless 02/04/2025 9:56 PM EDT [facility] TURBIDITY Clear Clear 02/04/2025 9:56 PM EDT [facility] SPECIFIC GRAVITY 1.032 1.003 - 1.035 02/04/2025 9:56 PM EDT [facility] NITRITE Negative Negative 02/04/2025 9:56 PM EDT [facility] PH,URINE 8.0 5.0 - 8.5 02/04/2025 9:56 PM EDT [facility] LEUKOCYTE ESTERASE Negative Negative 02/04/2025 9:56 PM EDT [facility] PROTEIN Negative Negative 02/04/2025 9:56 PM EDT [facility] KETONES (URINE) Negative Negative 9:56 PM EDT [facility] UROBILINOGEN <1.1 eu/dL <1.1 eu/dL 02/04/2025 9:56 PM EDT [facility] BILIRUBIN (URINE) Negative Negative 02/04/2025 9:56 PM EDT [facility] BLOOD/HGB Negative Negative 02/04/2025 9:56 PM EDT [facility] GLUCOSE (URINE) Negative Negative 9:56 PM EDT [facility] Urine (Urine, Indwelling Catheter) 02/04/2025 11:43 AM EDT 02/04/2025 9:24 PM EDT us Vanessa Mccarthy MD URINE ORDERABLES Final Re sult [facility] [address] [place] [address], [place] [phone] * Bedside Glucose *Place/Obtain serum glucose if >500 per glucometer. (02/04/2025 11:24 AM EDT) Bedside Glucose (POC) 83 65 - 99 mg/dL 02/05/2025 1:18 AM EDT [facility] arterial/capilla ry 02/04/2025 11:24 AM EDT 02/05/2025 1:18 AM EDT us Alejo Villalobos MD POINT OF CARE TEST ORDERABLES Fi nal Result [facility] [address] [place] [address], [place] documented in this encounter Visit Diagnoses Diagnosis Acute on chronic respiratory failure ([facility]-H[facility])- Primary Coagulase negative Staphylococcus bacteremia Chronic low back pain, unspecified back pain laterality, unspecified whether sciatica present senior living (current) use of anticoagulants Long-term (current) use of anticoagulants Typical atrial flutter (CMS-HCC) COPD, severe (CMS-HCC) Chronic respiratory failure with hypoxia and hypercapnia (CMS-HCC) WILIAN treated with BiPAP documented in this encounter Admitting Diagnoses Diagnosis Acute on chronic respiratory failure (CMS-HCC) documented in this encounter Administered Medications Inactive Administered Medications - up to 3 most recent administrations Medication Order MAR Action Action Date Dose Rate Site acetaminophen (OFIRMEV) IVPB Premix 1,000 mg 1,000 mg, intravenous, at 400 mL/hr, Administer over 15 Minutes, Every 8 hours PRN, mild pain - pain scale 1-3, moderate pain - pain scale 4-6, Starting on 02/06/25 at 0448, For 24 hours New Bag 02/06/2025 4:59 PM EDT 1,000 mg 400 mL/hr Rate/Dose Verify 02/06/2025 5:01 AM EDT 400 mL/ hr New Bag 02/06/2025 4:57 AM EDT 1,000 mg 400 mL/hr acetaminophen (TYLENOL EXTRA STRENGTH) tablet 1,000 mg 1,000 mg, oral, Every 6 hours PRN, mild pain - pain scale 1-3, temperature greater than 38 C, headaches, Starting on Fri02/07/25 at 1135 Given 02/08/2025 9:15 AM EDT 1,000 mg Given 02/07/2025 11:59 AM EDT 1,000 mg albuterol (PROVENTIL HFA;VENTOLIN HFA) inhaler 2 puff 2 puff, inhalation, Every 4 hours PRN, wheezing, Starting on Fri02/07/25 at 2124, RN to contact RT for instruction of spacer., Implement INPATIENT/ED Bronchodilator Clinical Practice Guidelines? Yes, Document: https://online.[employer]/action/api/find/nd c/patch_f/00773274087 atorvastatin (LIPITOR) tablet 10 mg 10 mg, oral, Daily, First dose on Fri02/07/25 at 1730, Look-alike/sound-alike medication - verify indication for use. Given 02/12/2025 9:04 AM EDT 10 mg Given 02/11/2025 8:32 AM EDT 10 mg Given 02/10/2025 12:50 PM EDT 10 mg azithromycin (ZITHROMAX) tablet 250 mg 250 mg, oral, 3 times weekly (Once per day on Friday), First dose (after last modification) on Fri02/10/25 at 1115, Indication: Other, Specify: COPD maintainence Given 02/12/2025 9:0 4 AM EDT 250 mg Given 02/10/2025 12:46 PM EDT 250 mg barium sulfate (VARIBAR NECTAR) 40 % (w/v) suspension 10 mL 10 mL, oral, Once in imaging, contrast, barium sulfate (VARIBAR NECTAR) 40 % (w/v) suspension, Starting on Fri02/07/25 at 0850, For 1 dose Given 02/07/2025 8:53 AM EDT 10 mL barium sulfate (VARIBAR PUDDING) 40 % (w/v), 30% (w/w) oral paste 60 mL 60 mL, oral, Once in imaging, contrast, barium sulfate (VARIBAR PUDDING) 40 % (w/v), 30% (w/w) oral paste, Starting on Fri02/07/25 at 0848, For 1 dose Given 02/07/2025 8:53 AM EDT 30 mL barium sulfate (VARIBAR PUDDING) 40 % (w/v), 30% (w/w) oral paste 60 mL 60 mL, oral, Once in imaging, contrast, barium sulfate (VARIBAR PUDDING) 40 % (w/v), 30% (w/w) oral paste, Starting on Fri02/11/25 at 1036, For 1 dose Given 02/11/2025 10:37 AM EDT 30 mL barium sulfate (VARIBAR THIN) 81 % (w/w) powder 148 g 148 g, oral, Once in imaging, contrast, barium sulfate (VARIBAR THIN) 40 % (w/v) powder, Starting on Fri02/07/25 at 0848, For 1 dose Given 02/07/2025 8:53 AM EDT 10 g barium sulfate (VARIBAR THIN) 81 % (w/w) powder 148 g 148 g, oral, Once in imaging, contrast, barium sulfate (VARIBAR THIN) 40 % (w/v) powder, Starting on Fri02/11/25 at 1036, For 1 dose Given 02/11/2025 10:37 AM EDT 10 g bisacodyL (DULCOLAX) suppository 10 mg 10 mg, rectal, Daily PRN, constipation, Starting on Fri02/11/25 at 1724, Look-alike/sound-alike medication - verify indication for use. bumetanide (BUMEX) 3 mg in sodium chloride 0.9 % 50 mL IVPB 3 mg, intravenous, at 124 mL/hr, Administer over 30 Minutes, Once, On 02/05/25 at 1630, For 1 dose New Bag 02/05/2025 4:52 PM EDT 3 mg 124 mL/hr busPIRone (BUSPAR) tablet 10 mg 10 mg, oral, Nightly, First dose on Fri02/07/25 at 2200, Look-alike/sound-alike medication - verify indication for use. Avoid grapefruit juice. Given 02/11/2025 8:22 PM EDT 10 mg Given 02/10/2025 9:54 PM EDT 10 mg Given 02/09/2025 8:18 PM EDT 10 mg calcium gluconate 3,000 mg in sodium chloride 0.9 % 100 mL IVPB 3,000 mg, intravenous, at 130 mL/hr, Administer over 60 Minutes, As needed, for ionized calcium level less than 3 mg/dL, Starting on Fri02/04/25 at 1107, CALL PHYSICIAN if this dose is administered. Recheck ionized calcium 6 hours after infusion. Hold calcium replacement for phosphorus greater than 5.5 mg/dL. VESICANT (RED) calcium gluconate IVPB 1000 mg/50 mL (20 mg/mL premix) 1,000 mg, intravenous, at 50 mL/hr, Administer over 60 Minutes, As needed, for ionized calcium level 3.5 to 4.4 mg/dL, Starting on Fri02/04/25 at 1107, Recheck ionized calcium 6 hours after infusion. Hold calcium replacement for phosphorus greater than 5.5 mg/dL. VESICANT (RED) calcium gluconate IVPB 2000 mg/100 mL (20 mg/mL premix) 2,000 mg, intravenous, at 100 mL/hr, Administer over 60 Minutes, As needed, for ionized calcium level 3 to 3.4 mg/dL, Starting on Fri02/04/25 at 1107, Recheck ionized calcium 6 hours after infusion. Hold calcium replacement for phosphorus greater than 5.5 mg/dL. VESICANT (RED) chlorhexidine (PERIDEX) 0.12 % solution 15 mL 15 mL, mouth/throat, 2 times daily, First dose on Fri02/04/25 at 2100, Swish undiluted for 30 seconds, then spit. Given 02/05/2025 9:26 AM EDT 15 mL Given 02/04/2025 7:19 PM EDT 15 mL dexmedeTOMIDine (PRECEDEX) infusion 400 mcg/100 mL in sodium chloride 0.9% (4 mcg/mL premix) 0.2-1 mcg/kg/hr 57.5 kg (2.875-14.375 mL/hr, rounded to 2.9-14.4 mL/hr), intravenous, Continuous, Starting on 02/05/25 at 0945, Start at 0.2 mcg/kg/hr. Titrate by 0.1 mcg/kg/hr every 30 minutes to achieve target RASS sedation level. Look-alike/sound-alike medication - verify indication for use., Indication: Sedation, Sequence of Sedation- Use this medication: First, Wean Sequence: Wean Second Rate/Dose Change 02/07/2025 11:59 AM EDT 0.2 mcg/kg/hr 2.9 mL/hr Rate/Dose Change 02/07/2025 11:41 AM EDT 0.3 mcg/kg/hr 4.3 mL/hr Rate/Dose Verify 02/07/2025 11:41 AM EDT 0.4 mcg/kg/hr 5.8 mL/hr DULoxetine (CYMBALTA) DR capsule 80 mg 80 mg, oral, Daily, First dose on 02/07/25 at 1800, Look-alike/sound-alike medication - verify indication for use. Swallow whole-do not crush or chew. Although the furnace door tender does not recommend opening the capsule, the contents of capsule may be sprinkled on applesauce or in apple juice and swallowed (without chewing) immediately; do not sprinkle contents on chocolate pudding. Given 02/12/2025 9:05 AM EDT 80 mg Given 02/11/2025 8:32 AM EDT 80 mg Given 02/10/2025 12:59 PM EDT 80 mg ferrous sulfate tablet 325 mg 325 mg, oral, Every 48 hours, First dose on Leann 02/10/25 at 1200, Give ferrous sulfate 2 hours before or 4 hours after antacids. Given 02/12/2025 11:28 AM EDT 325 mg Given 02/10/2025 1:55 PM EDT 325 mg fluticasone furoate-vilanteroL (BREO ELLIPTA) 200-25 mcg/dose inhaler 1 puff 1 puff, inhalation, Daily, First dose on Fri02/08/25 at 1000, Rinse mouth with water and spit after every dose. Given 02/12/2025 9:06 AM EDT 1 puff Given 02/11/2025 8:46 AM EDT 1 puff Given 02/10/2025 12:51 PM EDT 1 puff furosemide (LASIX) injection 40 mg 40 mg, intravenous, Once, On Fri02/11/25 at 0915, For 1 dose, Look-alike/sound-alike medication - verify indication for use. IVP rate = 20 mg/min Given 02/11/2025 11:15 AM EDT 40 mg furosemide (LASIX) tablet 20 mg 20 mg, oral, Daily, First dose on Fri02/07/25 at 1730, Look-alike/sound-alike medication - verify indication for use. Given 02/11/2025 8:34 AM EDT 20 mg Given 02/10/2025 12:46 PM EDT 20 mg Given 02/09/2025 9:35 AM EDT 20 mg furosemide (LASIX) tablet 40 mg 40 mg, oral, Daily, First dose on Fri02/12/25 at 0900, Look-alike/sound-alike medication - verify indication for use. Given 02/12/2025 9:04 AM EDT 40 mg gabapentin (NEURONTIN) capsule 300 mg 300 mg, oral, 3 times daily, First dose on Fri02/07/25 at 1730, Look-alike/sound-alike medication - verify indication for use. Given 02/12/2025 1:35 PM EDT 300 mg Given 02/12/2025 6:04 AM EDT 300 mg Given 02/11/2025 8:22 PM EDT 300 mg guaiFENesin (MUCINEX) tablet 600 mg 600 mg, oral, Every 12 hours PRN, cough, Starting on Fri02/11/25 at 1116, Look-alike/sound-alike medication - verify indication for use. Do not crush or chew. heparin infusion 60750 units/500 mL in 0.45% NaCl (50 units/mL premix) 300-3,500 Units/hr (6-70 mL/hr), intravenous, Continuous, Starting on Fri02/06/25 at 0515, Please titrate from initial infusion rate listed above. MAXIMUM initial infusion: 1000 units/hr Heparin Low Intensity Infusion (Cardiology) Heparin Adjustment Table: Anti-Xa Therapeutic Goal: 0.3 - 0.7 IU/mL Anti-Xa results (IU/mL): Ant-Xa every 6 hours after dosage adjustment until therapeutic x 2 then every AM -less than 0.1 IU/mL: bolus 2000 units, increase rate by 150 units/hr (3 mL/hr), next Anti-Xa in 6 hrs. -0.1 - 0.29 IU/mL: increase rate by 100 units/hr (2 mL/hr), next Anti-Xa in 6 hours. -Notify provider if: Anti-Xa less than 0.3 IU per mL for 2 consecutive results. -0.3 - 0.7 IU/mL: Therapeutic level: next Anti-Xa in 6 hours then every AM. -0.71 - 0.8 IU/mL: decrease rate by 50 units/hr (1 mL/hr), next Anti-Xa in 6 hours. -0.81 - 1.6 IU/mL: stop infusion for 30 minutes, decrease rate by 100 units/hr (2 mL/hr), next Anti-Xa in 6 hours. -1.61 - 2 IU/mL: stop infusion for 60 minutes, decrease rate by 150 units/hr (3 mL/hr), next Anti-Xa in 6 hours. - Greater than 2 IU/mL: stop infusion for 90 minutes, decrease rate by 250 units/hr (5 mL/hr), next Anti-Xa in 6 hours. -Notify provider if: Platelet count less than 100,000/mm3 or less than or equal to 50% of baseline Monitor for signs of bleeding. Look-alike/sound-alike medication - verify indication for use., Indication: Afib or Mechanical Valve, INITIAL Infusion Dose (Units/hr): 650 units/hr Rate/Dose Verify 02/08/2025 6:31 AM EDT 1,050 Units/hr 21 mL/hr New Bag 02/07/2025 9:59 PM EDT 1,050 Units/hr 21 mL/hr Rate/Dose Verify 02/07/2025 6:08 PM EDT 1,050 Units/hr 21 mL/hr hydrALAZINE (APRESOLINE) injection 10 mg 10 mg, intravenous, Every 6 hours PRN, high blood pressure, Starting on Fri02/06/25 at 0318, For systolic blood pressure greater than 180 mmHg Look-alike/sound-alike medication - verify indication for use. Administer IV doses as a slow IV push; maximum rate: 5 mg/minute. Given 02/06/2025 3:50 AM EDT 10 mg HYDROcodone-acetaminophen (NORCO) 5-325 mg per tablet 1 tablet 1 tablet, oral, Every 6 hours PRN, severe pain - pain scale 7-10, Starting on Fri02/08/25 at 1250, Look-alike/sound-alike medication - verify indication for use. Given 02/12/2025 2:33 PM EDT 1 ta blet Given 02/12/2025 7:51 AM EDT 1 tablet Given 02/11/2025 4:48 PM EDT 1 tablet hydrocortisone sod succ (PF) (Solu-CORTEF) injection 100 mg 100 mg, intravenous, Once, On Fri02/04/25 at 1215, For 1 dose, Administer over 30 seconds. May alter blood glucose or insulin requirements. Look-alike/sound-alike medication - verify indication for use. Given 02/04/2025 12:18 PM EDT 100 mg hydrocortisone sod succ (PF) (Solu-CORTEF) injection 50 mg 50 mg, intravenous, Every 6 hours, First dose on Fri02/04/25 at 1800, Administer over 30 seconds. May alter blood glucose or insulin requirements. Look-alike/sound-alike medication - verify indication for use. Given 02/05/2025 11:59 AM EDT 50 mg Given 02/05/2025 5:03 AM EDT 50 mg Given 02/04/2025 11:07 PM EDT 50 mg hydrOXYzine (ATARAX) tablet 25 mg 25 mg, oral, 4 times daily PRN, anxiety, Starting on Fri02/07/25 at 0905, Look-alike/sound-alike medication - verify indication for use. Given 02/12/2025 2:34 PM EDT 25 mg Given 02/12/2025 7:53 AM EDT 25 mg Given 02/11/2025 11:58 PM EDT 25 mg ipratropium-albuteroL (DUONEB) 0.5 mg-3 mg(2.5 mg base)/3 mL nebulizer solution 3 mL 3 mL, nebulization, Every 6 hours, First dose (after last modification) on Fri02/04/25 at 2000, Implement INPATIENT/ED Bronchodilator Clinical Practice Guidelines? Yes Given 02/05/2025 1:34 AM EDT 3 mL Given 02/04/2025 7:20 PM EDT 3 mL ipratropium-albuteroL (DUONEB) 0.5 mg-3 mg(2.5 mg base)/3 mL nebulizer solution 3 mL 3 mL, nebulization, 3 times daily, First dose (after last modification) on [facility] 02/05/25 at 1500, Implement INPATIENT/ED Bronchodilator Clinical Practice Guidelines? Yes Given 02/07/2025 2:54 PM EDT 3 mL Given 02/07/2025 7:21 AM EDT 3 mL Given 02/06/2025 10:03 PM EDT 3 mL ipratropium-albuteroL (DUONEB) 0.5 mg-3 mg(2.5 mg base)/3 mL nebulizer solution 3 mL 3 mL, nebulization, Every 6 hours, First dose (after last modification) on Fri02/07/25 at 2000, Implement INPATIENT/ED Bronchodilator Clinical Practice Guidelines? Yes Given 02/10/2025 9:26 AM EDT 3 mL Given 02/10/2025 2:07 AM EDT 3 mL Given 02/09/2025 8:22 PM EDT 3 mL ipratropium-albuteroL (DUONEB) 0.5 mg-3 mg(2.5 mg base)/3 mL nebulizer solution 3 mL 3 mL, nebulization, 3 times daily, First dose (after last modification) on [facility] 02/10/25 at 1400, Implement INPATIENT/ED Bronchodilator Clinical Practice Guidelines? Yes Given 02/12/2025 2:17 PM EDT 3 mL Given 02/12/2025 8:17 AM EDT 3 mL Given 02/11/2025 8:54 PM EDT 3 mL ipratropium-albuteroL (DUONEB) 0.5 mg-3 mg(2.5 mg base)/3 mL nebulizer solution 3 mL 3 mL, nebulization, Every 4 hours PRN, shortness of breath, wheezing, Starting on Leann 02/10/25 at 1224, Implement INPATIENT/ED Bronchodilator Clinical Practice Guidelines? Yes iron sucrose (VENOFER) 100 mg in sodium chloride 0.9 % 50 mL IVPB 100 mg, intravenous, at 220 mL/hr, Administer over 15 Minutes, Once, On Fri02/07/25 at 0830, For 1 dose, Monitor patient for hypersensitivity reactions for at least 30 minutes after the infusion. AVOID the use of H1 antihistamines, such as diphenhydramine, as this may worsen hypersensitivity reactions. Have resuscitation equipment and medications available. New Bag 02/07/2025 9:13 AM EDT 100 mg 220 mL/h r liothyronine (CYTOMEL) tablet 25 mcg 25 mcg, oral, Daily, First dose on Fri02/07/25 at 1800, Look-alike/sound-alike medication - verify indication for use. Given 02/12/2025 9:04 AM EDT 25 mcg Given 02/11/2025 8:31 AM EDT 25 mcg Given 02/10/2025 12:49 PM EDT 25 mcg LORazepam (ATIVAN) injection 0.5 mg 0.5 mg, intravenous, Once, On Fri02/06/25 at 0715, For 1 dose, Look-alike/sound-alike medication - verify indication for use;IV use requires increased monitoring of HR,BP,Respirations and Pulse Oximetry;For IV-dilute with equal volume PF sod chloride, Indication: Agitation Given 02/06/2025 7:01 AM EDT 0.5 mg magnesium sulfate IVPB 2000 mg/50 mL in iso-osmotic water (40 mg/mL premix) 2,000 mg, intravenous, at 25 mL/hr, Administer over 120 Minutes, As needed, for magnesium level 1.7 to 1.9 mg/dL or ionized magnesium level 0.45 to 0.5 mmol/L, Starting on Fri02/04/25 at 1107, Use premix solution. Default to ionized magnesium level in cases where patient has both magnesium and ionized magnesium results. If administered, check ionized magnesium (or total magnesium if ionized magnesium unavailable) level 4 hours after infusion. New Bag 02/11/2025 8:40 AM EDT 2,000 mg 25 mL/hr Rate/Dose Verify 02/08/2025 6:31 AM EDT 25 mL/h r Rate/Dose Verify 02/08/2025 5:56 AM EDT 25 mL/h r magnesium sulfate IVPB 4000 mg/100 mL in iso-osmotic water (40 mg/mL premix) 4,000 mg, intravenous, at 25 mL/hr, Administer over 240 Minutes, As needed, for magnesium level 1.6 mg/mL or less, or ionized magnesium level 0.44 mmol/L or less, Starting on Fri02/04/25 at 1107, Use premix solution. Default to ionized magnesium level in cases where patient has both magnesium and ionized magnesium results. If administered, check ionized magnesium (or total magnesium if ionized magnesium unavailable) level 4 hours after infusion. methylPREDNISolone sod suc(PF) (Solu-MEDROL) 125 mg/2 mL injection - Pyxis Override Pull Starting on 02/05/25 at 1620, For 1 dose, Heather Whitten: cabinet override May alter blood glucose or insulin requirements. Look-alike/sound-alike medication - verify indication for use. methylPREDNISolone sod suc(PF) (Solu-MEDROL) injection 125 mg 125 mg, intravenous, Once, On 02/05/25 at 1630, For 1 dose, May alter blood glucose or insulin requirements. Look-alike/sound-alike medication - verify indication for use. Given 02/05/2025 4:22 PM EDT 125 mg methylPREDNISolone sod suc(PF) (Solu-MEDROL) injection 40 mg 40 mg, intravenous, Every 12 hours scheduled, First dose on Fri02/06/25 at 0900, May alter blood glucose or insulin requirements. Look-alike/sound-alike medication - verify indication for use. Given 02/06/2025 8:00 AM EDT 40 mg methylPREDNISolone sod suc(PF) (Solu-MEDROL) injection 40 mg 40 mg, intravenous, Every 24 hours scheduled, First dose (after last modification) on Fri02/07/25 at 0900, May alter blood glucose or insulin requirements. Look-alike/sound-alike medication - verify indication for use. Given 02/07/2025 8:04 AM EDT 40 m g metoprolol succinate XL (TOPROL XL) 24 hr tablet 50 mg 50 mg, oral, Daily, First dose on Fri02/07/25 at 1730, Look-alike/sound-alike medication - verify indication for use. Do not crush or chew. Given 02/09/2025 9:35 AM EDT 50 mg Given 02/08/2025 9:15 AM EDT 50 mg Given 02/07/2025 6:17 PM EDT 50 mg norepinephrine (LEVOPHED) infusion 8 mg/250 mL in sod chlor 0.9% (0.032 mg/mL PMX) 0.01-0.4 mcg/kg/min 57.2 kg (1.0725-42.9 mL/hr, rounded to 1.1-42.9 mL/hr), intravenous, Continuous, Starting on Fri02/04/25 at 1115, Preferred central line administration. Start at 0.04 mcg/kg/min. Titrate by 0.02 mcg/kg/min every 5 min to achieve MAP >65. VESICANT (RED) Requires Smart Pump., Indication: Hypotension, Sequence of Pressors - Use this medication: First, Wean Sequence: Wean First Rate/Dose Change 02/04/2025 1:55 PM EDT 0.02 mcg/kg/min 2.1 mL/hr Rate/Dose Change 02/04/2025 1:42 PM EDT 0.04 mcg/kg/min 4. 3 mL/hr Rate/Dose Change 02/04/2025 1:35 PM EDT 0.06 mcg/kg/min 6. 4 mL/hr oxyCODONE (ROXICODONE) immediate release tablet 5 mg 5 mg, oral, Once, On Fri02/07/25 at 1830, For 1 dose, Look-alike/sound-alike medication - verify indication for use. Immediate release. Given 02/07/2025 6:30 PM EDT 5 mg pantoprazole (PROTONIX) injection 40 mg 40 mg, intravenous, Every morning before breakfast, First dose on Fri02/04/25 at 1115, Look-alike/sound-alike medication - verify indication for use., Indication: Other (LAKEISHA), Please specify: Stress Ulcer Prophylaxis Given 02/08/2025 5:17 AM EDT 40 mg Given 02/07/2025 8:04 AM EDT 40 mg Given 02/06/2025 5:15 AM EDT 40 mg phenylephrine HCl in 0.9% NaCl (NOE-SYNEPHRINE) 20 mg/250 mL (80 mcg/mL) premix infusion 0.5-2.5 mcg/kg/min 56.9 kg (21.3375-106.6875 mL/hr, rounded to 21.3-106.7 mL/hr), intravenous, Continuous, Starting on Fri02/04/25 at 1215, Preferred central line administration. Start at 0.5 mcg/kg/min. Titrate by 0.2 mcg/kg/min every 5 min to achieve MAP 65. VESICANT (RED), Indication: Hypotension, Sequence of Pressors - Use this medication: First, Wean Sequence: Wean First Rate/Dose Change 02/05/2025 7:57 AM EDT 0.2 mcg/kg/min 8.5 mL/hr Rate/Dose Verify 02/05/2025 6:51 AM EDT 0.3 mcg/kg/min 12. 8 mL/hr Rate/Dose Verify 02/05/2025 5:52 AM EDT 0.3 mcg/kg/min 12. 8 mL/hr piperacillin-tazobactam (ZOSYN) 3.375 g in sodium chloride 0.9 % 50 mL IVPB W/ADAPTER 3.375 g, intravenous, at 12.5 mL/hr, Administer over 4 Hours, Every 8 hours, First dose on Fri02/04/25 at 1700, Dose adjusted per [facility] approved piperacillin-tazobactam policy. First dose of 3.375 gram to be 4 hours after 4.5 gram dose if frequency is every 8 hours or 8 hours after 4.5 gram dose if frequency is every 12 hours. For Vial-2-Bag: Attach bag and vial to adapter - Use immediately after activating; dissolve drug prior to administration., Indication: Hospital-acquired pneumonia New Bag 02/07/2025 8:04 AM EDT 3.375 g 12.5 mL/hr Rate/Dose Verify 02/07/2025 4:05 AM EDT 12.5 mL /hr New Bag 02/07/2025 12:08 AM EDT 3.375 g 12.5 mL/hr piperacillin-tazobactam (ZOSYN) 4.5 g in sodium chloride 0.9 % 50 mL IVPB W/ADAPTER 4.5 g, intravenous, at 100 mL/hr, Administer over 30 Minutes, Once, On Fri02/04/25 at 1300, For 1 dose, Loading dose per [facility] approved piperacillin-tazobactam policy. First dose of 3.375 gram to be 4 hours after 4.5 gram dose if frequency is every 8 hours or 8 hours after 4.5 gram dose if frequency is every 12 hours. For Vial-2-Bag: Attach bag and vial to adapter - Use immediately after activating; dissolve drug prior to administration., Indication: Hospital-acquired pneumonia New Bag 02/04/2025 1:30 PM EDT 4.5 g 100 mL/hr potassium chloride (K-TAB,KLOR-CON) CR tablet 20-50 mEq 20-50 mEq, oral, As needed, for potassium replacement, Starting on Fri02/04/25 at 1107, Progress to oral potassium replacement when patient tolerating oral intake. If dose administered, recheck potassium level 4 hours after last dose. For potassium level 3.4 to 3.8 mmol/L and Serum Creatinine 1.2 or less=30 mEq. For potassium level 3.1 to 3.3 mmol/L and Serum Creatinine 1.2 or less=40 mEq. For potassium level 3 mmol/L or less and Serum Creatinine 1.2 or less=50 mEq. For potassium level 3.4 to 3.8 mmol/L and Serum Creatinine greater than 1.2=20 mEq. For potassium level 3.1 to 3.3 mmol/L and Serum Creatinine greater than 1.2=30 mEq. For potassium level 3 mmol/L or less and Serum Creatinine greater than 1.2=40 mEq. Do not crush or chew. Given 02/11/2025 11:15 AM EDT 30 mEq potassium chloride (KAYCIEL) 20 mEq/15 mL solution 20-50 mEq 20-50 mEq, oral, As needed, potassium replacement, Starting on Fri02/04/25 at 1107, Progress to oral potassium replacement when patient tolerating oral intake. If dose administered, recheck potassium level 4 hours after last dose. For potassium level 3.4 to 3.8 mmol/L and Serum Creatinine 1.2 or less=30 mEq (22.5mL). For potassium level 3.1 to 3.3 mmol/L and Serum Creatinine 1.2 or less=40 mEq (30mL). For potassium level 3 mmol/L or less and Serum Creatinine 1.2 or less=50 mEq (37.5mL). For potassium level 3.4 to 3.8 mmol/L and Serum Creatinine greater than 1.2=20 mEq (15mL). For potassium level 3.1 to 3.3 mmol/L and Serum Creatinine greater than 1.2=30 mEq (22.5mL). For potassium level 3 mmol/L or less and Serum Creatinine greater than 1.2=40 mEq (30mL). Must dilute before use - Mix in 3-8 ounces of water or juice before administration When administering in feeding tube, flush before and after per policy and monitor potassium levels Given 02/05/2025 3:48 AM EDT 30 mEq Given 02/04/2025 2:46 PM EDT 30 mEq potassium chloride IVPB 10 mEq/100 mL in water (0.1 mEq/mL premix) 10 mEq, intravenous, at 100 mL/hr, Administer over 60 Minutes, As needed, for potassium replacement, Starting on Fri02/04/25 at 1107, Administer Potassium Chloride IVPB in 10 mEq increments. Maximum infusion rates: Central Line = 20 mEq/hour; Peripheral Line = 10 mEq/hour (10 mEq/100 mL). If dose administered, recheck potassium level 1 hour after infusion complete. For potassium level 3.4 to 3.8 mmol/L and Serum Creatinine 1.2 or less = 30 mEq For potassium level 3.1 to 3.3 mmol/L and Serum Creatinine 1.2 or less = 40 mEq For potassium level 3 mmol/L or less and Serum Creatinine 1.2 or less = 50 mEq For potassium level 3.4 to 3.8 mmol/L and Serum Creatinine greater than 1.2 = 20 mEq For potassium level 3.1 to 3.3 mmol/L and Serum Creatinine greater than 1.2 = 30 mEq For potassium level 3 mmol/L or less and Serum Creatinine greater than 1.2 = 40 mEq VESICANT (YELLOW) Infuse each 10 mEq over a minimum of 1 hour. potassium chloride IVPB 10 mEq/100 mL in water (0.1 mEq/mL premix) 10 mEq, intravenous, at 100 mL/hr, Administer over 60 Minutes, Once, On Fri02/04/25 at 1500, For 1 dose, VESICANT (YELLOW) Infuse each 10 mEq over a minimum of 1 hour. New Bag 02/04/2025 3:11 PM EDT 10 mEq 100 mL/hr potassium chloride IVPB 10 mEq/50 mL in water (0.2 mEq/mL premix) 10 mEq, intravenous, at 50 mL/hr, Administer over 1 Hours, As needed, for potassium replacement, Starting on Fri02/04/25 at 1107, Administer Potassium Chloride IVPB in 10 mEq increments. Maximum infusion rates: Central Line = 20 mEq/hour. Administer via Central Line Only. If dose administered, recheck potassium level 1 hour after infusion complete. For potassium level 3.4 to 3.8 mmol/L and Serum Creatinine 1.2 or less = 30 mEq For potassium level 3.1 to 3.3 mmol/L and Serum Creatinine 1.2 or less = 40 mEq For potassium level 3 mmol/L or less and Serum Creatinine 1.2 or less = 50 mEq For potassium level 3.4 to 3.8 mmol/L and Serum Creatinine greater than 1.2 = 20 mEq For potassium level 3.1 to 3.3 mmol/L and Serum Creatinine greater than 1.2 = 30 mEq For potassium level 3 mmol/L or less and Serum Creatinine greater than 1.2 = 40 mEq VESICANT (YELLOW) New Bag 02/08/2025 9:07 AM EDT 10 mEq 50 mL /hr New Bag 02/08/2025 6:33 AM EDT 10 mEq 50 mL/hr Rate/Dose Verify 02/08/2025 5:56 AM EDT 50 mL/h r predniSONE (DELTASONE) tablet 40 mg 40 mg, oral, Daily with breakfast, First dose on Fri02/08/25 at 0800, For 3 doses, Look-alike/sound-alike medication - verify indication for use. Food-Drug Interaction Education Required May alter blood glucose or insulin requirements Take/give with food Look-alike/sound-alike medication - verify indication for use. Given 02/10/2025 12:48 PM EDT 40 mg Given 02/09/2025 9:35 AM EDT 40 mg Given 02/08/2025 9:15 AM EDT 40 mg propofol (DIPRIVAN) bolus from bag 50 mg 50 mg (rounded from 569 mg = 10 mg/kg 56.9 kg), intravenous, Once, On Fri02/04/25 at 1300, For 1 dose, Administer bolus dose from infusion. For any bolus dose greater than 50 mg, a second order is required. Look-alike/sound-alike medication - verify indication for use. Tubing and any unused portions of propofol vials should be discarded after 12 hours. Bolus from Bag 02/04/2025 12:25 PM EDT 50 mg propofoL (DIPRIVAN) infusion 5-50 mcg/kg/min 57.2 kg (1.716-17.16 mL/hr, rounded to 1.7-17.2 mL/hr), intravenous, Continuous, Starting on Fri02/04/25 at 1115, Start propofol infusion at 30 mcg/kg/min. Titrate by 5 mcg/kg/min IV every 5 minutes until ordered RASS sedation level is achieved. Maximum infusion rate 50 mcg/kg/min. (Usual maintenance dose 5 to 50 mcg/kg/min). Check triglyceride level every 3 days while on propofol. Look-alike/sound-alike medication - verify indication for use. Tubing and any unused portions of propofol vials should be discarded after 12 hours., Indication: Sedation, Sequence of Sedation- Use this medication: First, Wean Sequence: Wean First Rate/Dose Change 02/05/2025 11:57 AM EDT 20 mcg/kg/min 6.9 mL/hr Rate/Dose Change 02/05/2025 10:58 AM EDT 25 mcg/kg/min 8.6 mL/hr Rate/Dose Change 02/05/2025 10:06 AM EDT 30 mcg/kg/min 10. 3 mL/hr sennosides-docusate sodium (SENOKOT-S) 8.6-50 mg 2 tablet 2 tablet, oral, 2 times daily, First dose on Leann 02/10/25 at 1300 Given 02/12/2025 9:04 AM EDT 2 tablets Given 02/11/2025 8:32 AM EDT 2 tablets Given 02/10/2025 9:54 PM EDT 2 tablets sod phos di, mono-K phos mono (K-PHOS NEUTRAL) 250 mg tablet 2 tablet 2 tablet, oral, As needed, for phosphorous level 2.3 mg/dL or less, Starting on Fri02/04/25 at 1107, If dose administered, recheck phosphorus level 4 hours after last dose. Look-alike/sound-alike medication - verify indication for use. Give with a full glass of water. Given 02/04/2025 10:53 PM EDT 2 tablets Given 02/04/2025 3:56 PM EDT 2 tablets sodium chloride 0.9 % flush 10 mL 10 mL, intravenous, Every 12 hours, First dose on Fri02/09/25 at 0900, PICC line. Administer 10 mL per lumen; 10 mL total (for single lumen flush) Given 02/12/2025 9:06 AM EDT 10 mL Given 02/11/2025 9:00 PM EDT 10 mL Given 02/11/2025 8:32 AM EDT 10 mL sodium chloride 0.9 % flush 10 mL 10 mL, intravenous, As needed, line care, Starting on Fri02/09/25 at 0853, PICC line. Administer 10 mL to each lumen before and after each use. Administer 10 mL per lumen; 10 mL total (for single lumen flush) sodium chloride 0.9 % flush 20 mL 20 mL, intravenous, As needed, line care, Starting on Fri02/09/25 at 0853, PICC line. Administer 20 mL to each lumen after lab draws, blood infusion, and meds known to precipitate. Administer 20 mL per lumen; 20 mL total (for single lumen flush) sodium chloride 0.9 % flush 30 mL 30 mL, intravenous, Every 8 hours, First dose on Fri02/05/25 at 1200, Short Term Central line. For difficult IV access and therapy duration 14 days or less. Administer 10 mL to each lumen. Administer 10 mL per lumen; 30 mL total (for triple lumen flush) Given 02/11/2025 6:01 AM EDT 30 mL Given 02/10/2025 9:55 PM EDT 30 mL Given 02/10/2025 1:01 PM EDT 30 mL sodium chloride 0.9 % infusion 10 mL/hr, intravenous, Continuous PRN, to maintain patency of lines, Starting on Fri02/04/25 at 1107, For 1 day, Line #2 Restarted 02/05/2025 1:19 PM EDT 10 mL/hr Restarted 02/05/2025 12:06 PM EDT 10 mL/hr Rate/Dose Verify 02/05/2025 6:51 AM EDT 10 mL/h r sodium chloride 0.9 % infusion 10 mL/hr, intravenous, Continuous PRN, to maintain patency of lines, Starting on Fri02/04/25 at 1107, For 1 day, Line #3 Restarted 02/05/2025 10:54 AM EDT 10 mL/hr Restarted 02/05/2025 10:22 AM EDT 10 mL/hr Rate/Dose Verify 02/05/2025 9:03 AM EDT 10 mL/h r sodium chloride 0.9 % infusion 3 mL/hr, intra-arterial, Continuous, Starting on Fri02/04/25 at 1645 Rate/Dose Verify 02/06/2025 7:29 PM EDT 3 mL/hr 3 mL/hr Rate/Dose Verify 02/06/2025 6:46 PM EDT 3 mL/hr 3 mL/hr Rate/Dose Verify 02/06/2025 6:09 PM EDT 3 mL/hr 3 mL/hr sodium chloride 0.9 % infusion 10 mL/hr, intravenous, Continuous PRN, to maintain patency of lines, Starting on Fri02/05/25 at 1151, For 1 day, Line #3 Restarted 02/06/2025 9:57 AM EDT 10 mL/hr Restarted 02/06/2025 9:11 AM EDT 10 mL/hr Restarted 02/06/2025 8:29 AM EDT 10 mL/hr sodium chloride 0.9 % infusion 20 mL/hr, intravenous, Continuous PRN, per policy for blood product transfusion, Starting on Fri02/07/25 at 0341, Initiate prior to blood product transfusion. Continue before and after each blood product transfusion. Discontinue upon completion of blood product transfusion(s). sodium phosphate 20 mmol in sodium chloride 0.9 % 100 mL IVPB 20 mmol, intravenous, at 26.7 mL/hr, Administer over 4 Hours, As needed, for phosphorous level 2.3 mg/dL or less, Starting on Fri02/04/25 at 1107, Administer over 4 hours via dedicated line(central line). If administered, recheck phosphorus level 4 hours after infusion complete. Infuse using central line access. sodium phosphate 20 mmol in sodium chloride 0.9 % 250 mL IVPB 20 mmol, intravenous, at 42.8 mL/hr, Administer over 6 Hours, As needed, for phosphorous level 2.3 mg/dL or less, Starting on Fri02/04/25 at 1107, Administer over 6 hours via dedicated line (peripheral line). If administered, recheck phosphorus level 4 hours after infusion complete. traZODone (DESYREL) tablet 25 mg 25 mg, oral, Nightly, First dose on Fri02/07/25 at 2200, Look-alike/sound-alike medication - verify indication for use. Given 02/11/2025 8:22 PM EDT 25 m g Given 02/10/2025 9:55 PM EDT 25 mg Given 02/09/2025 8:19 PM EDT 25 mg vancomycin (VANCOCIN) 1,000 mg in sodium chloride 0.9 % 250 mL IVPB W/ADAPTER 1,000 mg, intravenous, at 250 mL/hr, Administer over 60 Minutes, Every 12 hours, First dose (after last modification) on Fri02/09/25 at 1400, For Vial-2-Bag: Attach bag and vial to adapter - Use immediately after activating; dissolve drug prior to administration., Indication: Bacteremia New Bag 02/12/2025 6:06 AM EDT 1,000 mg 250 mL/h r New Bag 02/11/2025 8:30 PM EDT 1,000 mg 250 mL/hr New Bag 02/11/2025 5:48 AM EDT 1,000 mg 250 mL/hr vancomycin (VANCOCIN) 1,250 mg in sodium chloride 0.9 % 250 mL IVPB W/ADAPTER 1,250 mg (rounded from 1,138 mg = 20 mg/kg 56.9 kg), intravenous, at 167 mL/hr, Administer over 90 Minutes, Once, On Fri02/04/25 at 1300, For 1 dose, For Vial-2-Bag: Attach bag and vial to adapter - Use immediately after activating; dissolve drug prior to administration., Indication: Community-acquired pneumonia New Bag 02/04/2025 2:09 PM EDT 1,250 mg 16 7 mL/hr vancomycin (VANCOCIN) 750 mg in sodium chloride 0.9 % 250 mL IVPB W/ADAPTER 750 mg (rounded from 853.5 mg = 15 mg/kg 56.9 kg), intravenous, at 250 mL/hr, Administer over 60 Minutes, Every 24 hours, First dose (after last reorder) on Fri02/05/25 at 1300, For Vial-2-Bag: Attach bag and vial to adapter - Use immediately after activating; dissolve drug prior to administration., Indication: Community-acquired pneumonia New Bag 02/07/2025 1:57 PM EDT 750 mg 25 0 mL/hr New Bag 02/06/2025 12:40 PM EDT 750 mg 250 mL/hr Rate/Dose Verify 02/05/2025 12:28 PM EDT 250 mL /hr vancomycin (VANCOCIN) 750 mg in sodium chloride 0.9 % 250 mL IVPB W/ADAPTER 750 mg, intravenous, at 250 mL/hr, Administer over 60 Minutes, Every 12 hours, First dose on Fri02/08/25 at 0200, For Vial-2-Bag: Attach bag and vial to adapter - Use immediately after activating; dissolve drug prior to administration., Indication: Bacteremia New Bag 02/09/2025 2:10 AM EDT 750 mg 250 mL/hr New Bag 02/08/2025 3:02 PM EDT 750 mg 250 mL/hr New Bag 02/08/2025 1:58 AM EDT 750 mg 250 mL/hr warfarin (COUMADIN) tablet 2.5 mg 2.5 mg, oral, Daily, First dose (after last modification) on Fri02/07/25 at 1600, Food-Drug Interaction Education Required Look-alike/sound-alike medication - verify indication for use Avoid intake of foods with large amounts of vitamin K Enteral Feeding: If patient is on tube feedings, avoid formulas containing soy protein Transition to oral diet may require decrease in warfarin dose, Target INR: 2 - 3, Indication: Atrial fibrillation/embolism, Hold warfarin & notify prescriber if INR greater than: 3 Given 02/09/2025 6:04 PM EDT 2.5 mg Given 02/08/2025 3:03 PM EDT 2.5 mg Given 02/07/2025 4:31 PM EDT 2.5 mg warfarin (COUMADIN) tablet 3 mg 3 mg, oral, Daily, First dose (after last modification) on Leann 02/10/25 at 1600, Food-Drug Interaction Education Required Look-alike/sound-alike medication - verify indication for use Avoid intake of foods with large amounts of vitamin K Enteral Feeding: If patient is on tube feedings, avoid formulas containing soy protein Transition to oral diet may require decrease in warfarin dose, Target INR: 2 - 3, Indication: Atrial fibrillation/embolism, Hold warfarin & notify prescriber if INR greater than: 3 Given 02/12/2025 3:33 PM EDT 3 mg Given 02/11/2025 4:42 PM EDT 3 mg Given 02/10/2025 3:46 PM EDT 3 mg documented in this encounter Active and Recently Administered Medications Times are shown in EDT. Scheduled Medication Order 02/10/2025 02/11/2025 02/12/2025 atorvastatin (LIPITOR) tablet 10 mg 10 mg, oral, Daily, First dose on Fri02/07/25 at 1730, Look-alike/sound-alike medication - verify indication for use. 1250 (Given - Provider: Lisa Irving RN) 0832 (Given - Provider: Lisa Irving RN) 0904 (Given - Provider: Dedra Jean RN) azithromycin (ZITHROMAX) tablet 250 mg 250 mg, oral, 3 times weekly (Once per day on Friday), First dose (after last modification) on Fri02/10/25 at 1115, Indication: Other, Specify: COPD maintainence 1246 (Given - Provider: Lisa Irving RN) 0904 (Given - Provider: Dedra Jean RN) busPIRone (BUSPAR) tablet 10 mg 10 mg, oral, Nightly, First dose on Fri02/07/25 at 2200, Look-alike/sound-alike medication - verify indication for use. Avoid grapefruit juice. 2153 (Given - Provider: Huey Medae RN) 2021 (Given - Provider: Samra Moss RN) DULoxetine (CYMBALTA) DR capsule 80 mg 80 mg, oral, Daily, First dose on Fri02/07/25 at 1800, Look-alike/sound-alike medication - verify indication for use. Swallow whole-do not crush or chew. Although the furnace door tender does not recommend opening the capsule, the contents of capsule may be sprinkled on applesauce or in apple juice and swallowed (without chewing) immediately; do not sprinkle contents on chocolate pudding. 1259 (Given - Provider: Lisa Irving RN) 0832 (Given - Provider: Lisa Irving RN) 0905 (Given - Provider: Dedra Jean RN) ferrous sulfate tablet 325 mg 325 mg, oral, Every 48 hours, First dose on Fri02/10/25 at 1200, Give ferrous sulfate 2 hours before or 4 hours after antacids. 1355 (Given - Provider: Lisa Irving RN) 1128 (Given - Provider: Dedra Jean RN) fluticasone furoate-vilanteroL (BREO ELLIPTA) 200-25 mcg/dose inhaler 1 puff 1 puff, inhalation, Daily, First dose on Fri02/08/25 at 1000, Rinse mouth with water and spit after every dose. 1251 (Given - Provider: Lisa Irving RN) 0846 (Given - Provider: Lisa Irving RN)1000 (Canceled Entry - Provider: Lisa Irving RN) 0906 (Given - Provider: Dedra Jean RN) furosemide (LASIX) injection 40 mg (COMPLETED) 40 mg, intravenous, Once, On Fri02/11/25 at 0915, For 1 dose, Look-alike/sound-alike medication - verify indication for use. IVP rate = 20 mg/min 1115 (Given - Provider: Lisa Irving RN) furosemide (LASIX) tablet 20 mg (CANCELED) 20 mg, oral, Daily, First dose on Fri02/07/25 at 1730, Look-alike/sound-alike medication - verify indication for use. 1246 (Given - Provider: Lisa Irving RN) 0834 (Given - Provider: Lisa Irving RN) furosemide (LASIX) tablet 40 mg 40 mg, oral, Daily, First dose on Fri02/12/25 at 0900, Look-alike/sound-alike medication - verify indication for use. 0904 (Given - Provider: Dedra Jean RN) gabapentin (NEURONTIN) capsule 300 mg 300 mg, oral, 3 times daily, First dose on Fri02/07/25 at 1730, Look-alike/sound-alike medication - verify indication for use. 0548 (Given - Provider: Huey Meade, MARLIN)1300 (Given - Provider: Lisa Irving RN)2155 (Given - Provider: Huey Meade, MARLIN) 0546 (Given - Provider: Huey Meade, RN)1323 (Given - Provider: Lisa Irving RN)202 (Given - Provider: Samra Moss, MARLIN) 0604 (Given - Provider: Samra Moss RN)1335 (Given - Provider: Dedra Jean RN) ipratropium-albuteroL (DUONEB) 0.5 mg-3 mg(2.5 mg base)/3 mL nebulizer solution 3 mL (CANCELED) 3 mL, nebulization, Every 6 hours, First dose (after last modification) on Fri02/07/25 at 2000, Implement INPATIENT/ED Bronchodilator Clinical Practice Guidelines? Yes 0207 (Given - Provider: Abdon Mallory RCP)0926 (Given - Provider: Katia Williamson RCP) ipratropium-albuteroL (DUONEB) 0.5 mg-3 mg(2.5 mg base)/3 mL nebulizer solution 3 mL 3 mL, nebulization, 3 times daily, First dose (after last modification) on Leann 02/10/25 at 1400, Implement INPATIENT/ED Bronchodilator Clinical Practice Guidelines? Yes 1426 (Given - Provider: Katia Williamson RCP)2113 (Given - Provider: Yuliet Horvath RCP) 0903 (Given - Provider: Katia Williamson RCP)1445 (Given - Provider: Lisa Irving RN)2054 (Given - Provider: Jeanna Molina RCP) 0817 (Given - Provider: Claudia Cruz RCP)1417 (Given - Provider: Claudia Cruz RCP) liothyronine (CYTOMEL) tablet 25 mcg 25 mcg, oral, Daily, First dose on Fri02/07/25 at 1800, Look-alike/sound-alike medication - verify indication for use. 1249 (Given - Provider: Lisa Irving RN) 0831 (Given - Provider: Lisa Irving RN) 0904 (Given - Provider: Dedra Jean, MARLIN) predniSONE (DELTASONE) tablet 40 mg (COMPLETED) 40 mg, oral, Daily with breakfast, First dose on Fri02/08/25 at 0800, For 3 doses, Look-alike/sound-alike medication - verify indication for use. Food-Drug Interaction Education Required May alter blood glucose or insulin requirements Take/give with food Look-alike/sound-alike medication - verify indication for use. 1248 (Given - Provider: Lisa Irving RN) sennosides-docusate sodium (SENOKOT-S) 8.6-50 mg 2 tablet 2 tablet, oral, 2 times daily, First dose on Fri02/10/25 at 1300 1258 (Given - Provider: Lisa Irving RN)2154 (Given - Provider: Huey Meade RN) 0832 (Given - Provider: Lisa Irving RN)202 (Not Given - Provider: Samra Moss RN - Reason: Patient/family refused) 0904 (Given - Provider: Dedra Jean, MARLIN) sodium chloride 0.9 % flush 10 mL(Linked Group 1) 10 mL, intravenous, Every 12 hours, First dose on Fri02/09/25 at 0900, PICC line. Administer 10 mL per lumen; 10 mL total (for single lumen flush) 1252 (Given - Provider: Lisa Irving RN)2158 (Given - Provider: Huey Meade RN) 0832 (Given - Provider: Lisa Irving RN)2100 (Given - Provider: Samra Moss, MARLIN) 0906 (Given - Provider: Dedra Jean, MARLIN) sodium chloride 0.9 % flush 30 mL (CANCELED)(Linked Group 2) 30 mL, intravenous, Every 8 hours, First dose on Fri02/05/25 at 1200, Short Term Central line. For difficult IV access and therapy duration 14 days or less. Administer 10 mL to each lumen. Administer 10 mL per lumen; 30 mL total (for triple lumen flush) 0552 (Given - Provider: Huey Meade RN)1301 (Given - Provider: Lisa Irving, MARLIN)215 (Given - Provider: Huey Meade RN) 06 (Given - Provider: Huey Meade RN) traZODone (DESYREL) tablet 25 mg 25 mg, oral, Nightly, First dose on Fri02/07/25 at 2200, Look-alike/sound-alike medication - verify indication for use. 2154 (Given - Provider: Huey Meade RN) 2021 (Given - Provider: Samra Moss, MARLIN) vancomycin (VANCOCIN) 1,000 mg in sodium chloride 0.9 % 250 mL IVPB W/ADAPTER 1,000 mg, intravenous, at 250 mL/hr, Administer over 60 Minutes, Every 12 hours, First dose (after last modification) on Fri02/09/25 at 1400, For Vial-2-Bag: Attach bag and vial to adapter - Use immediately after activating; dissolve drug prior to administration., Indication: Bacteremia 0540 (New Bag - Provider: Huey Meade RN)0640 (Stop Bag - Provider: Lisa Irving RN)1743 (New Bag - Provider: Lisa Irving RN)1843 (Stop Bag - Provider: Huey Meade RN) 0548 (New Bag - Provider: Huey Meade RN)0648 (Stop Bag - Provider: Lisa Irving RN)2030 (New Bag - Provider: Samra Moss RN)2130 (Stop Bag - Provider: Samra Moss RN) 0606 (New Bag - Provider: Samra Moss RN)0706 (Stop Bag - Provider: Dedra Jean RN) warfarin (COUMADIN) tablet 3 mg 3 mg, oral, Daily, First dose (after last modification) on Fri02/10/25 at 1600, Food-Drug Interaction Education Required Look-alike/sound-alike medication - verify indication for use Avoid intake of foods with large amounts of vitamin K Enteral Feeding: If patient is on tube feedings, avoid formulas containing soy protein Transition to oral diet may require decrease in warfarin dose, Target INR: 2 - 3, Indication: Atrial fibrillation/embolism, Hold warfarin & notify prescriber if INR greater than: 3 1546 (Given - Provider: Lisa Irving RN) 1642 (Given - Provider: Lisa Irving RN) 1533 (Given - Provider: Dedra Jean RN) PRN Medication Order 02/10/2025 02/11/2025 02/12/2025 acetaminophen (TYLENOL EXTRA STRENGTH) tablet 1,000 mg 1,000 mg, oral, Every 6 hours PRN, mild pain - pain scale 1-3, temperature greater than 38 C, headaches, Starting on Fri02/07/25 at 1135 albuterol (PROVENTIL HFA;VENTOLIN HFA) inhaler 2 puff 2 puff, inhalation, Every 4 hours PRN, wheezing, Starting on Fri02/07/25 at 2124, RN to contact RT for instruction of spacer., Implement INPATIENT/ED Bronchodilator Clinical Practice Guidelines? Yes, Document: https://online.[employer]/ lco/action/api/find/ndc/ patch_f/29354943405 barium sulfate (VARIBAR PUDDING) 40 % (w/v), 30% (w/w) oral paste 60 mL (COMPLETED) 60 mL, oral, Once in imaging, contrast, barium sulfate (VARIBAR PUDDING) 40 % (w/v), 30% (w/w) oral paste, Starting on Fri02/11/25 at 1036, For 1 dose 1037 (Given - Provider: PAVAN Landeros) barium sulfate (VARIBAR THIN) 81 % (w/w) powder 148 g (COMPLETED) 148 g, oral, Once in imaging, contrast, barium sulfate (VARIBAR THIN) 40 % (w/v) powder, Starting on Fri02/11/25 at 1036, For 1 dose 1037 (Given - Provider: PAVAN Landeros) bisacodyL (DULCOLAX) suppository 10 mg 10 mg, rectal, Daily PRN, constipation, Starting on Fri02/11/25 at 1724, Look-alike/sound-alike medication - verify indication for use. calcium gluconate 3,000 mg in sodium chloride 0.9 % 100 mL IVPB(Linked Group 3) 3,000 mg, intravenous, at 130 mL/hr, Administer over 60 Minutes, As needed, for ionized calcium level less than 3 mg/dL, Starting on Fri02/04/25 at 1107, CALL PHYSICIAN if this dose is administered. Recheck ionized calcium 6 hours after infusion. Hold calcium replacement for phosphorus greater than 5.5 mg/dL. VESICANT (RED) calcium gluconate IVPB 1000 mg/50 mL (20 mg/mL premix)(Linked Group 3) 1,000 mg, intravenous, at 50 mL/hr, Administer over 60 Minutes, As needed, for ionized calcium level 3.5 to 4.4 mg/dL, Starting on Fri02/04/25 at 1107, Recheck ionized calcium 6 hours after infusion. Hold calcium replacement for phosphorus greater than 5.5 mg/dL. VESICANT (RED) calcium gluconate IVPB 2000 mg/100 mL (20 mg/mL premix)(Linked Group 3) 2,000 mg, intravenous, at 100 mL/hr, Administer over 60 Minutes, As needed, for ionized calcium level 3 to 3.4 mg/dL, Starting on Fri02/04/25 at 1107, Recheck ionized calcium 6 hours after infusion. Hold calcium replacement for phosphorus greater than 5.5 mg/dL. VESICANT (RED) dextrose (GLUTOSE) 40 % gel 15 g 15 g, oral, As needed, low blood sugar, blood glucose less than 70 mg/dL, Starting on Fri02/04/25 at 1107, If patient conscious and taking PO. If blood glucose is not greater than 70 mg/dL after initial treatment, repeat treatment. dextrose 50 % in water (D50W) 50% solution 25 mL 25 mL, intravenous, As needed, low blood sugar, blood glucose less than 70 mg/dL and unconscious or NPO with IV access, Starting on Fri02/04/25 at 1107, Push over 1-3 minutes STAT. If conscious and not NPO, immediately follow with meal tray or high protein (7 grams) snack if tray not available. If NPO, initiate 5% dextrose in water at 100 mL/hr and contact prescriber for additional orders. If blood glucose is not greater than 70 mg/dL after initial treatment, repeat treatment. VESICANT (RED) Warning: HYPERTONIC solution. glucagon HCL injection 1 mg 1 mg, intramuscular, As needed, low blood sugar, blood glucose less than 70 mg/dL and unconscious or NPO without IV access., Starting on Fri02/04/25 at 1107, If conscious and not NPO, immediately follow with meal tray or high protein (7Grams) snack if tray not available. If NPO, initiate IV 5% Dextrose/Water at 100 mL/hr and contact prescriber for additional orders. If blood glucose is not greater than 70 mg/dL after initial treatment, repeat treatment. guaiFENesin (MUCINEX) tablet 600 mg 600 mg, oral, Every 12 hours PRN, cough, Starting on Fri02/11/25 at 1116, Look-alike/sound-alike medication - verify indication for use. Do not crush or chew. hydrALAZINE (APRESOLINE) injection 10 mg 10 mg, intravenous, Every 6 hours PRN, high blood pressure, Starting on Fri02/06/25 at 0318, For systolic blood pressure greater than 180 mmHg Look-alike/sound-alike medication - verify indication for use. Administer IV doses as a slow IV push; maximum rate: 5 mg/minute. HYDROcodone-acetaminophe n (NORCO) 5-325 mg per tablet 1 tablet 1 tablet, oral, Every 6 hours PRN, severe pain - pain scale 7-10, Starting on Fri02/08/25 at 1250, Look-alike/sound-alike medication - verify indication for use. 0548 (Given - Provider: Huey Meade RN)1538 (Given - Provider: Lisa Irving RN)2154 (Given - Provider: Huey Meade RN) 0845 (Given - Provider: Lisa Irving, MARLIN)1648 (Given - Provider: Lisa Irving RN) 0751 (Given - Provider: Dedra Jean RN)1433 (Given - Provider: Dedra Jean RN) hydrOXYzine (ATARAX) tablet 25 mg 25 mg, oral, 4 times daily PRN, anxiety, Starting on Fri02/07/25 at 0905, Look-alike/sound-alike medication - verify indication for use. 1443 (Given - Provider: Lisa Irving RN)2358 (Given - Provider: Samra Moss, MARLIN) 0753 (Given - Provider: Dedra Jean, MARLIN)1434 (Given - Provider: Dedra Jean, MARLIN) ipratropium-albuteroL (DUONEB) 0.5 mg-3 mg(2.5 mg base)/3 mL nebulizer solution 3 mL 3 mL, nebulization, Every 4 hours PRN, shortness of breath, wheezing, Starting on Leann 02/10/25 at 1224, Implement INPATIENT/ED Bronchodilator Clinical Practice Guidelines? Yes magnesium sulfate IVPB 2000 mg/50 mL in iso-osmotic water (40 mg/mL premix)(Linked Group 4) 2,000 mg, intravenous, at 25 mL/hr, Administer over 120 Minutes, As needed, for magnesium level 1.7 to 1.9 mg/dL or ionized magnesium level 0.45 to 0.5 mmol/L, Starting on Fri02/04/25 at 1107, Use premix solution. Default to ionized magnesium level in cases where patient has both magnesium and ionized magnesium results. If administered, check ionized magnesium (or total magnesium if ionized magnesium unavailable) level 4 hours after infusion. 0840 (New Bag - Provider: Lisa Irving RN)1040 (Stop Bag - Provider: Lisa Irving RN) magnesium sulfate IVPB 4000 mg/100 mL in iso-osmotic water (40 mg/mL premix)(Linked Group 4) 4,000 mg, intravenous, at 25 mL/hr, Administer over 240 Minutes, As needed, for magnesium level 1.6 mg/mL or less, or ionized magnesium level 0.44 mmol/L or less, Starting on Fri02/04/25 at 1107, Use premix solution. Default to ionized magnesium level in cases where patient has both magnesium and ionized magnesium results. If administered, check ionized magnesium (or total magnesium if ionized magnesium unavailable) level 4 hours after infusion. 0840 (See Alternative - Provider: Lisa Irving RN)1040 (See Alternative - Provider: Lisa Irving RN) potassium chloride (K-TAB,KLOR-CON) CR tablet 20-50 mEq(Linked Group 5) 20-50 mEq, oral, As needed, for potassium replacement, Starting on Fri02/04/25 at 1107, Progress to oral potassium replacement when patient tolerating oral intake. If dose administered, recheck potassium level 4 hours after last dose. For potassium level 3.4 to 3.8 mmol/L and Serum Creatinine 1.2 or less=30 mEq. For potassium level 3.1 to 3.3 mmol/L and Serum Creatinine 1.2 or less=40 mEq. For potassium level 3 mmol/L or less and Serum Creatinine 1.2 or less=50 mEq. For potassium level 3.4 to 3.8 mmol/L and Serum Creatinine greater than 1.2=20 mEq. For potassium level 3.1 to 3.3 mmol/L and Serum Creatinine greater than 1.2=30 mEq. For potassium level 3 mmol/L or less and Serum Creatinine greater than 1.2=40 mEq. Do not crush or chew. 1115 (Given - Provider: Lisa Irving RN) potassium chloride (KAYCIEL) 20 mEq/15 mL solution 20-50 mEq(Linked Group 5) 20-50 mEq, oral, As needed, potassium replacement, Starting on Fri02/04/25 at 1107, Progress to oral potassium replacement when patient tolerating oral intake. If dose administered, recheck potassium level 4 hours after last dose. For potassium level 3.4 to 3.8 mmol/L and Serum Creatinine 1.2 or less=30 mEq (22.5mL). For potassium level 3.1 to 3.3 mmol/L and Serum Creatinine 1.2 or less=40 mEq (30mL). For potassium level 3 mmol/L or less and Serum Creatinine 1.2 or less=50 mEq (37.5mL). For potassium level 3.4 to 3.8 mmol/L and Serum Creatinine greater than 1.2=20 mEq (15mL). For potassium level 3.1 to 3.3 mmol/L and Serum Creatinine greater than 1.2=30 mEq (22.5mL). For potassium level 3 mmol/L or less and Serum Creatinine greater than 1.2=40 mEq (30mL). Must dilute before use - Mix in 3-8 ounces of water or juice before administration When administering in feeding tube, flush before and after per policy and monitor potassium levels 1115 (See Alternative - Provider: Lisa Irving RN) potassium chloride IVPB 10 mEq/100 mL in water (0.1 mEq/mL premix)(Linked Group 6) 10 mEq, intravenous, at 100 mL/hr, Administer over 60 Minutes, As needed, for potassium replacement, Starting on Fri02/04/25 at 1107, Administer Potassium Chloride IVPB in 10 mEq increments. Maximum infusion rates: Central Line = 20 mEq/hour; Peripheral Line = 10 mEq/hour (10 mEq/100 mL). If dose administered, recheck potassium level 1 hour after infusion complete. For potassium level 3.4 to 3.8 mmol/L and Serum Creatinine 1.2 or less = 30 mEq For potassium level 3.1 to 3.3 mmol/L and Serum Creatinine 1.2 or less = 40 mEq For potassium level 3 mmol/L or less and Serum Creatinine 1.2 or less = 50 mEq For potassium level 3.4 to 3.8 mmol/L and Serum Creatinine greater than 1.2 = 20 mEq For potassium level 3.1 to 3.3 mmol/L and Serum Creatinine greater than 1.2 = 30 mEq For potassium level 3 mmol/L or less and Serum Creatinine greater than 1.2 = 40 mEq VESICANT (YELLOW) Infuse each 10 mEq over a minimum of 1 hour. potassium chloride IVPB 10 mEq/50 mL in water (0.2 mEq/mL premix)(Linked Group 6) 10 mEq, intravenous, at 50 mL/hr, Administer over 1 Hours, As needed, for potassium replacement, Starting on Fri02/04/25 at 1107, Administer Potassium Chloride IVPB in 10 mEq increments. Maximum infusion rates: Central Line = 20 mEq/hour. Administer via Central Line Only. If dose administered, recheck potassium level 1 hour after infusion complete. For potassium level 3.4 to 3.8 mmol/L and Serum Creatinine 1.2 or less = 30 mEq For potassium level 3.1 to 3.3 mmol/L and Serum Creatinine 1.2 or less = 40 mEq For potassium level 3 mmol/L or less and Serum Creatinine 1.2 or less = 50 mEq For potassium level 3.4 to 3.8 mmol/L and Serum Creatinine greater than 1.2 = 20 mEq For potassium level 3.1 to 3.3 mmol/L and Serum Creatinine greater than 1.2 = 30 mEq For potassium level 3 mmol/L or less and Serum Creatinine greater than 1.2 = 40 mEq VESICANT (YELLOW) sod phos di, mono-K phos mono (K-PHOS NEUTRAL) 250 mg tablet 2 tablet(Linked Group 7) 2 tablet, oral, As needed, for phosphorous level 2.3 mg/dL or less, Starting on Fri02/04/25 at 1107, If dose administered, recheck phosphorus level 4 hours after last dose. Look-alike/sound-alike medication - verify indication for use. Give with a full glass of water. sodium chloride 0.9 % flush 10 mL(Linked Group 1) 10 mL, intravenous, As needed, line care, Starting on Fri02/09/25 at 0853, PICC line. Administer 10 mL to each lumen before and after each use. Administer 10 mL per lumen; 10 mL total (for single lumen flush) sodium chloride 0.9 % flush 20 mL(Linked Group 1) 20 mL, intravenous, As needed, line care, Starting on Fri02/09/25 at 0853, PICC line. Administer 20 mL to each lumen after lab draws, blood infusion, and meds known to precipitate. Administer 20 mL per lumen; 20 mL total (for single lumen flush) sodium chloride 0.9 % infusion 20 mL/hr, intravenous, Continuous PRN, per policy for blood product transfusion, Starting on Fri02/07/25 at 0341, Initiate prior to blood product transfusion. Continue before and after each blood product transfusion. Discontinue upon completion of blood product transfusion(s). sodium phosphate 20 mmol in sodium chloride 0.9 % 100 mL IVPB(Linked Group 7) 20 mmol, intravenous, at 26.7 mL/hr, Administer over 4 Hours, As needed, for phosphorous level 2.3 mg/dL or less, Starting on Fri02/04/25 at 1107, Administer over 4 hours via dedicated line(central line). If administered, recheck phosphorus level 4 hours after infusion complete. Infuse using central line access. sodium phosphate 20 mmol in sodium chloride 0.9 % 250 mL IVPB(Linked Group 7) 20 mmol, intravenous, at 42.8 mL/hr, Administer over 6 Hours, As needed, for phosphorous level 2.3 mg/dL or less, Starting on Fri02/04/25 at 1107, Administer over 6 hours via dedicated line (peripheral line). If administered, recheck phosphorus level 4 hours after infusion complete. Linked Groups Order Group 1: Consult PICC nurse - PICC (COMPLETED) Reason for consult? Insert PICC, Indication: Duration of therapy 14 days or less, Difficult Access, Number of Lumen(s): 1 Lumen And sodium chloride 0.9 % flush 10 mLJump to med 10 mL, intravenous, Every 12 hours, First dose on Fri02/09/25 at 0900, PICC line. Administer 10 mL per lumen; 10 mL total (for single lumen flush) And sodium chloride 0.9 % flush 10 mLJump to med 10 mL, intravenous, As needed, line care, Starting on Fri02/09/25 at 0853, PICC line. Administer 10 mL to each lumen before and after each use. Administer 10 mL per lumen; 10 mL total (for single lumen flush) And sodium chloride 0.9 % flush 20 mLJump to med 20 mL, intravenous, As needed, line care, Starting on Fri02/09/25 at 0853, PICC line. Administer 20 mL to each lumen after lab draws, blood infusion, and meds known to precipitate. Administer 20 mL per lumen; 20 mL total (for single lumen flush) Group 2: sodium chloride 0.9 % flush 30 mL (CANCELED)Jump to med 30 mL, intravenous, Every 8 hours, First dose on 02/05/25 at 1200, Short Term Central line. For difficult IV access and therapy duration 14 days or less. Administer 10 mL to each lumen. Administer 10 mL per lumen; 30 mL total (for triple lumen flush) And sodium chloride 0.9 % flush 30 mL (CANCELED) 30 mL, intravenous, As needed, line care, Starting on 02/05/25 at 1011, Short Term Central line. Administer 10 mL to each lumen before and after each use. Administer 10 mL per lumen; 30 mL total (for triple lumen flush) And sodium chloride 0.9 % flush 60 mL (CANCELED) 60 mL, intravenous, As needed, line care, Starting on 02/05/25 at 1011, Short Term Central line. Administer 20 mL to each lumen after lab draws, blood infusion, and meds known to precipitate. Administer 20 mL per lumen; 60 mL total (for triple lumen flush) Group 3: calcium gluconate IVPB 1000 mg/50 mL (20 mg/mL premix)Jump to med 1,000 mg, intravenous, at 50 mL/hr, Administer over 60 Minutes, As needed, for ionized calcium level 3.5 to 4.4 mg/dL, Starting on Fri02/04/25 at 1107, Recheck ionized calcium 6 hours after infusion. Hold calcium replacement for phosphorus greater than 5.5 mg/dL. VESICANT (RED) Or calcium gluconate IVPB 2000 mg/100 mL (20 mg/mL premix)Jump to med 2,000 mg, intravenous, at 100 mL/hr, Administer over 60 Minutes, As needed, for ionized calcium level 3 to 3.4 mg/dL, Starting on Fri02/04/25 at 1107, Recheck ionized calcium 6 hours after infusion. Hold calcium replacement for phosphorus greater than 5.5 mg/dL. VESICANT (RED) Or calcium gluconate 3,000 mg in sodium chloride 0.9 % 100 mL IVPBJump to med 3,000 mg, intravenous, at 130 mL/hr, Administer over 60 Minutes, As needed, for ionized calcium level less than 3 mg/dL, Starting on Fri02/04/25 at 1107, CALL PHYSICIAN if this dose is administered. Recheck ionized calcium 6 hours after infusion. Hold calcium replacement for phosphorus greater than 5.5 mg/dL. VESICANT (RED) Group 4: magnesium sulfate IVPB 2000 mg/50 mL in iso-osmotic water (40 mg/mL premix)Jump to med 2,000 mg, intravenous, at 25 mL/hr, Administer over 120 Minutes, As needed, for magnesium level 1.7 to 1.9 mg/dL or ionized magnesium level 0.45 to 0.5 mmol/L, Starting on Fri02/04/25 at 1107, Use premix solution. Default to ionized magnesium level in cases where patient has both magnesium and ionized magnesium results. If administered, check ionized magnesium (or total magnesium if ionized magnesium unavailable) level 4 hours after infusion. Or magnesium sulfate IVPB 4000 mg/100 mL in iso-osmotic water (40 mg/mL premix)Jump to med 4,000 mg, intravenous, at 25 mL/hr, Administer over 240 Minutes, As needed, for magnesium level 1.6 mg/mL or less, or ionized magnesium level 0.44 mmol/L or less, Starting on Fri02/04/25 at 1107, Use premix solution. Default to ionized magnesium level in cases where patient has both magnesium and ionized magnesium results. If administered, check ionized magnesium (or total magnesium if ionized magnesium unavailable) level 4 hours after infusion. Group 5: potassium chloride (K-TAB,KLOR-CON) CR tablet 20-50 mEqJump to med 20-50 mEq, oral, As needed, for potassium replacement, Starting on Fri02/04/25 at 1107, Progress to oral potassium replacement when patient tolerating oral intake. If dose administered, recheck potassium level 4 hours after last dose. For potassium level 3.4 to 3.8 mmol/L and Serum Creatinine 1.2 or less=30 mEq. For potassium level 3.1 to 3.3 mmol/L and Serum Creatinine 1.2 or less=40 mEq. For potassium level 3 mmol/L or less and Serum Creatinine 1.2 or less=50 mEq. For potassium level 3.4 to 3.8 mmol/L and Serum Creatinine greater than 1.2=20 mEq. For potassium level 3.1 to 3.3 mmol/L and Serum Creatinine greater than 1.2=30 mEq. For potassium level 3 mmol/L or less and Serum Creatinine greater than 1.2=40 mEq. Do not crush or chew. Or potassium chloride (KAYCIEL) 20 mEq/15 mL solution 20-50 mEqJump to med 20-50 mEq, oral, As needed, potassium replacement, Starting on Fri02/04/25 at 1107, Progress to oral potassium replacement when patient tolerating oral intake. If dose administered, recheck potassium level 4 hours after last dose. For potassium level 3.4 to 3.8 mmol/L and Serum Creatinine 1.2 or less=30 mEq (22.5mL). For potassium level 3.1 to 3.3 mmol/L and Serum Creatinine 1.2 or less=40 mEq (30mL). For potassium level 3 mmol/L or less and Serum Creatinine 1.2 or less=50 mEq (37.5mL). For potassium level 3.4 to 3.8 mmol/L and Serum Creatinine greater than 1.2=20 mEq (15mL). For potassium level 3.1 to 3.3 mmol/L and Serum Creatinine greater than 1.2=30 mEq (22.5mL). For potassium level 3 mmol/L or less and Serum Creatinine greater than 1.2=40 mEq (30mL). Must dilute before use - Mix in 3-8 ounces of water or juice before administration When administering in feeding tube, flush before and after per policy and monitor potassium levels Group 6: potassium chloride IVPB 10 mEq/50 mL in water (0.2 mEq/mL premix)Jump to med 10 mEq, intravenous, at 50 mL/hr, Administer over 1 Hours, As needed, for potassium replacement, Starting on Fri02/04/25 at 1107, Administer Potassium Chloride IVPB in 10 mEq increments. Maximum infusion rates: Central Line = 20 mEq/hour. Administer via Central Line Only. If dose administered, recheck potassium level 1 hour after infusion complete. For potassium level 3.4 to 3.8 mmol/L and Serum Creatinine 1.2 or less = 30 mEq For potassium level 3.1 to 3.3 mmol/L and Serum Creatinine 1.2 or less = 40 mEq For potassium level 3 mmol/L or less and Serum Creatinine 1.2 or less = 50 mEq For potassium level 3.4 to 3.8 mmol/L and Serum Creatinine greater than 1.2 = 20 mEq For potassium level 3.1 to 3.3 mmol/L and Serum Creatinine greater than 1.2 = 30 mEq For potassium level 3 mmol/L or less and Serum Creatinine greater than 1.2 = 40 mEq VESICANT (YELLOW) Or potassium chloride IVPB 10 mEq/100 mL in water (0.1 mEq/mL premix)Jump to med 10 mEq, intravenous, at 100 mL/hr, Administer over 60 Minutes, As needed, for potassium replacement, Starting on Fri02/04/25 at 1107, Administer Potassium Chloride IVPB in 10 mEq increments. Maximum infusion rates: Central Line = 20 mEq/hour; Peripheral Line = 10 mEq/hour (10 mEq/100 mL). If dose administered, recheck potassium level 1 hour after infusion complete. For potassium level 3.4 to 3.8 mmol/L and Serum Creatinine 1.2 or less = 30 mEq For potassium level 3.1 to 3.3 mmol/L and Serum Creatinine 1.2 or less = 40 mEq For potassium level 3 mmol/L or less and Serum Creatinine 1.2 or less = 50 mEq For potassium level 3.4 to 3.8 mmol/L and Serum Creatinine greater than 1.2 = 20 mEq For potassium level 3.1 to 3.3 mmol/L and Serum Creatinine greater than 1.2 = 30 mEq For potassium level 3 mmol/L or less and Serum Creatinine greater than 1.2 = 40 mEq VESICANT (YELLOW) Infuse each 10 mEq over a minimum of 1 hour. Group 7: sodium phosphate 20 mmol in sodium chloride 0.9 % 250 mL IVPBJump to med 20 mmol, intravenous, at 42.8 mL/hr, Administer over 6 Hours, As needed, for phosphorous level 2.3 mg/dL or less, Starting on Fri02/04/25 at 1107, Administer over 6 hours via dedicated line (peripheral line). If administered, recheck phosphorus level 4 hours after infusion complete. Or sodium phosphate 20 mmol in sodium chloride 0.9 % 100 mL IVPBJump to med 20 mmol, intravenous, at 26.7 mL/hr, Administer over 4 Hours, As needed, for phosphorous level 2.3 mg/dL or less, Starting on Fri02/04/25 at 1107, Administer over 4 hours via dedicated line(central line). If administered, recheck phosphorus level 4 hours after infusion complete. Infuse using central line access. Or sod phos di, mono-K phos mono (K-PHOS NEUTRAL) 250 mg tablet 2 tabletJump to med 2 tablet, oral, As needed, for phosphorous level 2.3 mg/dL or less, Starting on Fri02/04/25 at 1107, If dose administered, recheck phosphorus level 4 hours after last dose. Look-alike/sound-alike medication - verify indication for use. Give with a full glass of water. documented in this encounter Additional Health Concerns Assessment Noted Time PHQ-9 Depression Total Score: 18 025 11:23 AM EDT documented as of this encounter Care Teams Creping Machine Operator Relationship Specialty Start Date End Date Houston Brown MD [address] [place] [id number] PCP - General Pediatrics 12/02/24 documented as of this encounter
[2025-02-15] VITALS (75 sets, daily range): BP systolic 86–216; BP diastolic 60–130; PULSE 76–199; RESP 14; TEMP 37.3; O2SAT 71–100; BMI 22.3
--- NOTE | 2025-02-15 10:14 | ECG_ITS ---
[facility] Test Date: 2025-02-15 Pat Name: JESSE FAJARDO Department: Room: - Gender: Female Chemistry Quality Control Analyst: : 1960 Requested By: 1030 Order Number: [id number] Reading MD: KASEY GOLDSTEIN M.D. Measurements Intervals [place] Rate: 69 P: -03434 MA: -60233 QRS: 155 QRSD: 134 T: 56 QT: 420 QTc: 439 Interpretive Statements 51100 Electronic ventricular pacemaker Baseline Artifact Abnormal ECG No previous ECG available for comparison Electronically Signed On 02-15-2025 18:11:59 EDT by KASEY GOLDSTEIN M.D.
--- NOTE | 2025-02-15 10:14 | XR_ITS ---
[facility] [place] [id number] Patient Name: JESSE FAJARDO MRN: [id number] date: 1960 Sex: F Assigned Patient Location: ED.MAIN Current Patient Location: ED.MAIN Accession/Order Number: [id number] Exam Date: 02/15/2025 10:35 Report Date: 02/15/2025 10:38 At the request of: GRIS KIDD MD Procedure: XR chest 1V PORTABLE AP ERECT CHEST 1027 hours CLINICAL HISTORY: SOB COMPARISON: CT and chest x-ray 02/04/2025 A PICC line is visualized on the right and a pacemaker on the left. Patient also has a dorsal stimulator. The heart is top normal in size. There is no vascular congestion. The lungs are hyperinflated. Scarring and/or atelectasis is visualized. There is continued pleural-parenchymal opacity at the right base partially obscuring the hemidiaphragm. No pneumothorax is seen. The bony structures are osteopenic. XR/XR chest 1V IMPRESSION: OBSTRUCTIVE LUNG DISEASE WITH SCARRING AND/OR ATELECTASIS. CONTINUED MILD RIGHT BASILAR PLEURAL-PARENCHYMAL CHANGE. Impression dictated by: Angélica Burgess M.D. 02/15/2025 10:38 AM Dictation Location: [place] [address] Electronically authenticated by: [id number] Y Date: 02/15/2025 10:38
[2025-02-15] MEDS: ALBUTEROL SULFATE 2.5 MG/3 ML VIAL NEB IH (10:15)
--- OUTSIDE RECORDS SUMMARY | 2025-02-15 10:21 | XMS_ITS | Encounter Summary ---
Author Organization [email or web address] Address [id number] [address] [place] [address] Care Team Providers Care Air Support Control Officer Name Role Phone Char Luu MD Primary Care Provider + Reason for Visit * Reason Onset Date Comments Med Refill 07/12/2022 Encounter Details Date Type Department Care Team (Late st Contact Info) Description 07/12/2022 Refill [facility] [address] [place] [address] Iva Zamora RN Med Refill Social History Tobacco Use Types Packs/Day Years Used Date Smoking Tobacco: Former Smokeless Tobacco: Never Alcohol Use Standard Drinks/Week Comments Not Currently 0 (1 standard drink = 0.6 oz pur e alcohol) Social Connection and Isolation Panel [NHANES] A nswer Date Recorded In a typical week, how many times do you talk on the phone with family, friends, or neighbors? Three times a week 06/25/2022 How often do you get togethe r with friends or relatives? Never 06/25/2022 How often do you attend chur ch or rastafarian services? Never 06/25/2022 Do you belong to any clubs o r organizations such as orthodoxy groups, unions, fraternal or athletic groups, or school groups? No 06/25/2022 How often do you attend meet ings of the clubs or organizations you belong to? Never 06/25/2022 Are you , , di vorced, , never , or living with a partner? 06/25/2022 AUDIT-C Answer Date Recorded Q1: How often do you have a drink containing alcohol? Never 06/25/2022 Q2: How many drinks containi ng alcohol do you have on a typical day when you are drinking? Patient does not drink Q3: How often do you have si x or more drinks on one occasion? Never 06/25/2022 Overall Financial Resource Strain (CARDIA) Answe r Date Recorded How hard is it for you to pa y for the very basics like food, housing, medical care, and heating? Very hard 06/25/2022 PHQ-2 Answer Date Recorded Total Score 18 06/25/2022 [facility] of Occupat ional Health - Occupational Stress [...] medical appointments or from getting medications? No 06/15 In the past 12 months, has l ack of transportation kept you from meetings, work, or from getting things needed for daily living? No 06/25/2022 Childcare Answer Date Recorded Do problems getting child ca re make it difficult for you to work or study? No 06/25/2022 Employment Answer Date Recorded Do you need help finding a l ocal career center and/or a training program? No 06/25/2022 Purpose - Life Answer Date Recorded I have a purpose and direction in my life. Somew hat Disagree 06/25/2022 Comments No Sex and Gender Information Value Date Recorded Sex Assigned at Not on file Legal Sex Female 11:29 AM EDT Gender Identity Not on file Sexual Orientation Not on file COVID-19 Exposure Response Date Recorded In the last month, have you been in contact with someone who was confirmed or suspected to have Coronavirus / COVID-19? No / Unsure 07/15/2022 2:07 PM EDT documented as of this encounter Plan of Treatment Upcoming Encounters Date Type Department Care Team (Late st Contact Info) Description 03/01/2025 2:00 PM EDT Clinical Support [facility] [address] [place] [address] documented as of this encounter Visit Diagnoses Not on filedocumented in this encounter Additional Health Concerns Infection Onset Date Last Indicated Resolved Time COVID-19 Rule-Out 09/01/2022 09/01/2022 09/01/2022 9:00 PM EST Influenza 09/01/2022 09/01/2022 09/08/2022 11:1 3 PM EST Respiratory Rule-Out 01/25/2025 01/25/2025 025 12:26 PM EDT Assessment Noted Time PHQ-9 Depression Total Score: 18 022 12:26 AM EDT documented as of this encounter Care Teams Air Support Control Officer Relationship Specialty Start Date End Date Char Luu MD [address] [place] [address] PCP - General Pediatrics 12/02/24 documented as of this encounter
--- OUTSIDE RECORDS SUMMARY | 2025-02-15 10:21 | XMS_ITS | Encounter Summary ---
Author Organization [employer] [facility] tem Address [id number] [address] [place] [address] Care Team Providers Care Eyeglass Frames Inspector Name Role Phone Char Luu MD Primary Care Provider + Encounter Details Date Type Department Care Team (Late st Contact Info) Description 01/28[facility]2024 [facility] [address] [phone] Gabbi Garcia RN Social History Tobacco Use Types Packs/Day Years [...] often do you attend chur ch or yarsanism services? Never 06/25/2022 Do you belong to any clubs o r organizations such as zoroastrian groups, unions, fraternal or athletic groups, or [...] Answer Date Recorded Total Score 18 06/25/2022 [facility] Occupat ional Health - [...] Recorded Do you need help finding a [employer] career center and/or a training program? No 06/25/2022 Hunger Screening Answer Date Recorded Within the past 12 months we worried whether our food would run out before we got money to buy more. Never True 09/26/2022 Within the past 12 months th e food we bought just didn't last and we didn't have money to get more. Never True 09/26/2022 Purpose - Life Answer Date Recorded I have a purpose and direction in my life. Somew hat Disagree 06/25/2022 Comments No Sex and Gender Information Value Date Recorded Sex Assigned at Not on file Legal Sex Female 11:29 AM EDT Gender Identity Not on file Sexual Orientation Not on file documented as of this encounter Miscellaneous Notes * Telephone Encounter - Gabbi Garcia RN - 01/28/2024 10:41 AM EDT Cleaners spoke to patient and informed per Dr Gunter, CT chest showed nodules are stable. Recommend patient to repeat CT chest WO in one year and to keep f/u appt with physician on 04-15-24 at our [place] office. Patient agreeable CT chest WO order placed for one year Placed CT chest order and appt reminder in outgoing mail to patient ----- Message from Viki Gunter DO sent at 01/27/2024 1:31 PM EDT ----- Nodules are stable. Will repeat in 1 year. Thank you ----- Message ----- From: Gabbi Garcia RN Sent: 01/27/2024 10:56 AM EDT To: Viki Gunter DO Patient called and requested results. Please review and advise Thank you! documented in this encounter Plan of Treatment Upcoming Encounters Date Type Department Care Team (Late st Contact Info) Description 03/01/2025 2:00 PM EDT Clinical Support [facility] [address] [place] [address] documented as of this encounter Visit Diagnoses Diagnosis Pulmonary nodule- Primary Other diseases of lung, not elsewhere classified documented in this encounter Additional Health Concerns Infection Onset Date Last Indicated Resolved Time Respiratory Rule-Out 01/25/2025 01/25/2025 025 12:26 PM EDT Assessment Noted Time PHQ-9 Depression Total Score: 18 022 12:26 AM EDT documented as of this encounter Care Teams Eyeglass Frames Inspector Relationship Specialty Start Date End Date Char Luu MD [address] [place] [phone] PCP - General Pediatrics 12/02/24 documented as of this encounter
--- OUTSIDE RECORDS SUMMARY | 2025-02-15 10:21 | XMS_ITS | Encounter Summary ---
Author Organization [employer] s tem Address [facility] [id number] [address] [place] [address] Care Team Providers Care Service Vehicle Operator Name Role Phone Char Luu MD Primary Care Provider + Encounter Details Date Type Department Care Team (Late st Contact Info) Description 07/22/2024 [facility]phone [facility] [address] [place] [phone] Katia Hanson RN Social History Tobacco Use Types Packs/Day [...] often do you attend chur ch or mu-ism services? Never 06/25/2022 Do you belong to any clubs o r organizations such as gnosticism groups, unions, fraternal or athletic groups, or [...] Answer Date Recorded Total Score 18 06/25/2022 [facility] ional [facility] - Occupational [...] Do you need help finding a [facility] and/or a training program? No [...] on file documented as of this encounter Plan of Treatment Upcoming Encounters Date Type Department Care Team (Late st Contact Info) Description 03/01/2025 2:00 PM EDT Clinical Support [facility] Card[facility] [address] [place] [phone] documented as of this encounter Visit Diagnoses Not on filedocumented in this encounter Additional Health Concerns Infection Onset Date Last Indicated Resolved Time Respiratory Rule-Out 01/25/2025 01/25/2025 025 12:26 PM EDT Assessment Noted Time PHQ-9 Depression Total Score: 18 022 12:26 AM EDT documented as of this encounter Care Teams Service Vehicle Operator Relationship Specialty Start Date End Date Char Luu MD [address] [place] [phone] PCP - General Pediatrics 12/02/24 documented as of this encounter
--- OUTSIDE RECORDS SUMMARY | 2025-02-15 10:21 | XMS_ITS | Encounter Summary ---
Author Organization [employer] tem Address [facility] [id number] [address] [place] [address] Care Team Providers Care Employee Relation Manager Name Role Phone Char Luu MD Primary Care Provider + Reason for Visit * Reason Comments Med Change Request Encounter Details Date Type Department Care Team (Late st Contact Info) Description 06/26/2022 Refill [facility] [address] [place] [address] Tammy Baca MD [address] [place] [address] COPD exacerbation ([facility]) Social History Tobacco Use Types Packs/Day Years [...] often do you attend chur ch or sikhism services? Never 06/25/2022 Do you belong to any clubs o r organizations such as holiness groups, unions, fraternal or athletic groups, or [...] Answer Date Recorded Total Score 18 06/25/2022 [facility] of Occupat ional Health - Occupational Stress [...] have Coronavirus / COVID-19? No / Unsure 06/28/2022 2:18 PM EDT documented as of this encounter Plan of Treatment Upcoming Encounters Date Type Department Care Team (Late st Contact Info) Description 03/01/2025 2:00 PM EDT Clinical Support [facility] [address] [place] [address] documented as of this encounter Visit Diagnoses Diagnosis COPD exacerbation ([facility]) Obstructive chronic bronchitis with exacerbation documented in this encounter Additional Health Concerns Infection Onset Date Last Indicated Resolved Time COVID-19 Rule-Out 09/01/2022 09/01/2022 09/01/2022 9:00 PM EST Influenza 09/01/2022 09/01/2022 09/08/2022 11:1 3 PM EST Respiratory Rule-Out 01/25/2025 01/25/2025 025 12:26 PM EDT Assessment Noted Time PHQ-9 Depression Total Score: 18 022 12:26 AM EDT documented as of this encounter Care Teams Employee Relation Manager Relationship Specialty Start Date End Date Char Luu MD [address] [place] [address] PCP - General Pediatrics 12/02/24 documented as of this encounter
--- OUTSIDE RECORDS SUMMARY | 2025-02-15 10:22 | XMS_ITS | Encounter Summary ---
Author Organization [facility] Address [address] [place] [address] Care Team Providers Care Catalytic Converter Operator Name Role Phone Unavailable Primary Care Provider Unavailabl e Encounter Details Date Type Department Care Team (Late st Contact Info) Description 02/14/2025 Telephone [facility] Infectious Disease [address] [place] [address], [address] [place] [phone] Jackie Watts MA Social History Tobacco Use Types Packs/Day Years Used Date Smoking Tobacco: Never Assessed [place] Safety & Environment Answer Date Rec orded Fear of Current or Ex-Partner Not on file Emotionally Abused Not on file 11/06/2023 Physically Abused Not on file 11/06/2023 Sexually Abused Not on file 11/06/2023 Physically or Sexually Abused Not on file Sex and Gender Information Value Date Recorded Sex Assigned at Not on file Gender Identity Not on file Sexual Orientation Not on file documented as of this encounter Miscellaneous Notes * Telephone Encounter - Jackie Watts MA - 02/14/2025 1:00 PM EDT Opat confirmed pt is scheduled will try to set up telemed appt for pt to be seen sooner. documented in this encounter Plan of Treatment Upcoming Encounters Date Type Department Care Team (Late st Contact Info) Description 02/17/2025 11:20 AM EDT Telemedicine [facility] Infectious Disease [address], [address] [place] [address] Deepa Ruiz, BAGGAGE CLERK [address] [facility] [phone] 03/30/2025 1:30 PM EDT Follow-Up [facility] Pulmonary [address] [place] [phone] Vandana Lopez MD [address] [place], [place] [phone] documented as of this encounter Visit Diagnoses Not on filedocumented in this encounter
--- OUTSIDE RECORDS SUMMARY | 2025-02-15 10:22 | XMS_ITS | Referral Summary ---
Author Organization [facility] Address [address] [place] [address] Care Team Providers Care Railroad Crane Operator Name Role Phone Unavailable Primary Care Provider Unavailabl e Encounters Date Type Department Care Team Description 02/14/2025 Telephone [facility] Infectious [facility] [address], [address] [place] [address] Jackie Watts MA from Last 3 Months Social History Tobacco Use Types Packs/Day Years [...] on file Sexual Orientation Not on file Plan of Treatment Upcoming Encounters Date Type Department Care Team (Late st Contact Info) Description 02/17/2025 11:20 AM EDT Telemedicine [facility] Infectious [facility] [address], [address] [place] [address] Deepa Ruiz, RELAY SHOP TESTER [address] [facility]/[place] [address] 03/30/2025 1:30 PM EDT Follow-Up [facility] Pul[facility] [address] [place] [address] Vandana Lopez MD [address] [place] [address]
--- OUTSIDE RECORDS SUMMARY | 2025-02-15 10:22 | XMS_ITS | Encounter Summary ---
Author Organization [employer] [facility] tem Address [id number] [address] [place] [address] Care Team Providers Care Fruit Grading Supervisor Name Role Phone Char Luu MD Primary Care Provider + Encounter Details Date Type Department Care Team (Late st Contact Info) Description 01/15/2024 Orders Only [facility] Pulmonary/Sleep Medicine [address] [place] [phone] Gabbi Garcia RN COPD, severe ([facility]) Social History Tobacco Use Types Packs/Day Years [...] often do you attend chur ch or presybeterian services? Never 06/25/2022 Do you belong to any clubs o r organizations such as nondenominational groups, unions, fraternal or athletic groups, or [...] Answer Date Recorded Total Score 18 06/25/2022 [facility] - Occupational Stress Questionnaire Answer [...] [facility] [address] [place] [phone] documented as of this encounter Visit Diagnoses Diagnosis COPD, severe ([facility]) documented in this encounter Additional Health Concerns Infection Onset Date Last Indicated Resolved Time Respiratory Rule-Out 01/25/2025 01/25/2025 025 12:26 PM EDT Assessment Noted Time PHQ-9 Depression Total Score: 18 022 12:26 AM EDT documented as of this encounter Care Teams Fruit Grading Supervisor Relationship Specialty Start Date End Date Char Luu MD [address] [place] [address] PCP - General Pediatrics 12/02/24 documented as of this encounter
--- OUTSIDE RECORDS SUMMARY | 2025-02-15 10:22 | XMS_ITS | Clinical Summary ---
Author Organization [facility] Address [address] [place] [address] Care Team Providers Care Ocularist Name Role Phone Unavailable Primary Care Provider Unavailabl e Encounters Date Type Department Care Team Description 02/14/2025 Telephone [facility] Infectious [facility] [address], [address] [place] [address] Jackie Watts MA from Last [...] 02/17/2025 11:20 AM EDT Telemedicine [facility] Infectious [facility] [address], [address] [place] [address] Deepa Ruiz, LOADING SUPERVISOR [address] [facility]/[place] [address] 03/30/2025 1:30 PM EDT Follow-Up [facility] Pul[facility] [address] [place] [address] Vandana Lopez MD [address] [place] [address] Health Maintenance Due Date Last Done Comments CT Colonography 1959 Colonoscopy 1959 Colorectal Cancer Screening 1959 FIT-DNA 1959 FIT 1959 FOBT 1959 Medicare Annual Wellness (AWV) 1959 Medicare Initial Physical (IPPE) 1959 Sigmoidoscopy 1959 Pneumococcal Vaccine: 65+ Years (1 of 2 - PCV) 12/15/1965 Depression Screening 1971 Pap Smear 12/15/1980 Adult Tetanus 12/15/1981 Cervical Cancer Screening 12/15/1989 HPV/Cotest 12/15/1989 Mammogram 1999 Zoster Vaccines (1 of 2) 12/15/2009 COVID-19 Vaccine (3 - season) 2024 01/09/2021, 12/12/2020 Fall Risk Screening 12/15/2024 Influenza Vaccine (Season Ended) 2025 06/16/2019, 06/10/2018, 10/06/2017, Additional history exists HIB Vaccines Aged Out No longer eligi ble based on patient's age to complete this topic HPV Vaccines Aged Out No longer eligi ble based on patient's age to complete this topic IPV Vaccines Aged Out No longer eligi ble based on patient's age to complete this topic Meningococcal B Vaccine Aged Out No l onger eligible based on patient's age to complete this topic Meningococcal Vaccine Aged Out No owen jordan eligible based on patient's age to complete this topic Rotavirus Vaccines Aged Out No longer eligible based on patient's age to complete this topic
--- OUTSIDE RECORDS SUMMARY | 2025-02-15 10:22 | XMS_ITS | Patient Health Record ---
Author Organization [facility] Address [address] [place] [address] Care Team Providers Care Non Ferrous Material Handler Name Role Phone Char Luu MD Primary Care Provider Germania vailable Reason For Referral No Information Medications Medication SIG (Take, Route, Frequency, Duration) Notes Start Date End Date Status Pravachol 10 mg 1 tablet DAILY Active Norvasc 5 mg 1 tablet BID Act fawn Pacerone 200 mg 1 tablet DAILY Active Furosemide 20 mg 1 tablet DAILY Active Neurontin 300 mg 1 capsule TID Active Famotidine 20 mg 1 tablet DAILY Active folic acid 1 mg 1 tablet DAILY Active Cymbalta 60 mg 1 delayed release ca psule DAILY Active DuoNeb 2.5 mg-0.5 mg/3 ml solution TID Active Remeron 15 mg 1 tablet DAILY Active Aspirin 81 mg 1 DAILY Activ e HM Senna 8.6 mg 2 tablet PRN Active Problems Problem Type SNOMED Code ICD Code Onset Dates Problem Status W/U Status Risk Notes Problem 34703406 Non-ST elevation (NSTEMI) myocardial infarction (I21.4) Active confirmed Problem 925349546 Paroxysmal atrial fibrillation (I48.0) Active confirmed Problem 932789071 Chronic obstructive pulmonary disease with (acute) exacerbation (J44.1) Active confirmed Problem 93619404816257 Acute and chronic respiratory failure with hypoxia (J96.21) Active confirmed Problem [id number] Acute and chronic respiratory failure with hypercapnia (J96.22) Active confirmed Plan Of Treatment No Information Insurance Providers Payer Name Payer Address Payer Phone Subscriber Number Group Number Insured Name Patient Relationship to Insured Coverage Start Date [facility]age End Date [facility] [id number] [place] [phone] DOI [id number] [phone] Minnie Cortez Self - patient is the insured
--- OUTSIDE RECORDS SUMMARY | 2025-02-15 10:23 | XMS_ITS | Encounter Summary ---
Author Organization [facility] [employer] [facility] tem Address [id number] [address] [place] [address] Care Team Providers Care Senior Erp Consultant Name Role Phone Char Luu MD Primary Care Provider + Reason for Visit * Reason Comments Med Refill Encounter Details Date Type Department Care Team (Late st Contact Info) Description 11/15/2023 Refill [facility] Pharmacy Medication Management [address] [place] [phone] Dedra Krishnan, DAMASO-POLITICAL CARTOONIST [address] [place] [address] PAF (paroxysmal atrial fibrillation) ([facility]) Social History Tobacco Use Types Packs/Day Years [...] often do you attend chur ch or jehovah's witness services? Never 06/25/2022 Do you belong to [...] Answer Date Recorded Total Score 18 06/25/2022 [facility] of Occupat ional Health - [...] encounter Miscellaneous Notes * Telephone Encounter - ANGELICA Long - 11/15/2023 9:44 AM EST duplicate documented in this encounter Plan of Treatment Upcoming Encounters Date Type Department Care Team (Late st Contact Info) Description 03/01/2025 2:00 PM EDT Clinical Support [facility] Card[facility] [address] [place] [phone] documented as of this encounter Visit Diagnoses Diagnosis PAF (paroxysmal atrial fibrillation) ([facility]) Atrial fibrillation documented in this encounter Additional Health Concerns Infection Onset Date Last Indicated Resolved Time Respiratory Rule-Out 01/25/2025 01/25/2025 025 12:26 PM EDT Assessment Noted Time PHQ-9 Depression Total Score: 18 022 12:26 AM EDT documented as of this encounter Care Teams Senior Erp Consultant Relationship Specialty Start Date End Date Char Luu MD [address] [facility] [place] [address] PCP - General Pediatrics 12/02/24 documented as of this encounter
--- OUTSIDE RECORDS SUMMARY | 2025-02-15 10:23 | XMS_ITS | Encounter Summary ---
Author Organization [employer] tem Address [facility] [place]-[id number] [address] [place] [address] Care Team Providers Care In Home Aide Name Role Phone Char Luu MD Primary Care Provider + Encounter Details Date Type Department Care Team (Late Contact Info) Description 03/28/2021 Orders Only [facility] [address] [place] [phone] External, Scanning Provider Social History Tobacco Use Types Packs/Day Years Used Date Smoking Tobacco: Every Day Smokeless Tobacco: Never Childcare Answer Date Recorded Childcare Unknown 02/24/2019 Employment Answer Date Recorded Employment Unknown 02/24/2019 Purpose - Life Answer Date Recorded Purpose and direction in life Unknown Comments Unknown Sex and Gender Information Value Date Recorded Sex Assigned at Not on file Legal Sex Female 11:29 AM EDT Gender Identity Not on file Sexual Orientation Not on file COVID-19 Exposure Response Date Recorded In the last month, have you been in contact with someone who was confirmed or suspected to have Coronavirus / COVID-19? No / Unsure 03/27/2021 3:50 PM EDT documented as of this encounter Plan of Treatment Upcoming Encounters Date Type Department Care Team (Late Contact Info) Description 03/01/2025 2:00 PM EDT Clinical Support [facility] [address] [place] [address] documented as of this encounter Procedures Procedure Name Priority Date/Time Associated Diagnosis Comments EMG WITH NCV Routine 05/11/2014 documented in this encounter Results * EMG With NCV (05/11/2014) us Scanning Provider External NEUROLOGY ORDERABLES Final Result [facility] EXTERNAL NON-INTERFACED REF LAB [address] [facility] [place] [address] documented in this encounter Visit Diagnoses Not on filedocumented in this encounter Additional Health Concerns Infection Onset Date Last Indicated Resolved Time MRSA Comment:MRSA; sputum; 12/09/10 Infection converted via [employer] from [employer] system information 12/12/2010 12/12/2010 05/11/2021 11:19 PM EDT COVID-19 Rule-Out 06/24/2022 06/24/2022 06/24/2022 9:45 PM EDT COVID-19 Rule-Out 09/01/2022 09/01/2022 09/01/2022 9:00 PM EST Influenza 09/01/2022 09/01/2022 09/08/2022 11:1 3 PM EST Respiratory Rule-Out 01/25/2025 01/25/2025 025 12:26 PM EDT documented as of this encounter Care Teams In Home Aide Relationship Specialty Start Date End Date Char Luu MD [address] [place] [phone] PCP - General Pediatrics 12/02/24 documented as of this encounter
--- OUTSIDE RECORDS SUMMARY | 2025-02-15 10:23 | XMS_ITS | Encounter Summary ---
Author Organization [facility] tem Address [facility] [id number] [address] [place] [address] Care Team Providers Care Roller Inspector Name Role Phone Char Luu MD Primary Care Provider + Encounter Details Date Type Department Care Team (Late st Contact Info) Description 08/22/2023 Telephone [facility] - Pharmacy Medication Management [address] [place] [address] Medication Management, [facility] [address] [place] [address] Social History Tobacco Use Types Packs/Day Years [...] often do you attend chur ch or baptist services? Never 06/25/2022 Do you belong to any clubs o r organizations such as presybeterian groups, unions, fraternal or athletic groups, or [...] Answer Date Recorded Total Score 18 06/25/2022 [facility] of Occupat ional Health - Occupational [...] Recorded Do you need help finding a [facility] and/or a training program? [...] encounter Miscellaneous Notes * Telephone Encounter - Chanel Terry - 08/22/2023 1:40 PM EST Patient called to cx her appt for today. She is now r/s for 08/26/23, due to illness. documented in this encounter Plan of Treatment Upcoming Encounters Date Type Department Care Team (Late st Contact Info) Description 03/01/2025 2:00 PM EDT Clinical Support [facility] [address] [place] [phone] documented as of this encounter Visit Diagnoses Not on filedocumented in this encounter Additional Health Concerns Infection Onset Date Last Indicated Resolved Time Respiratory Rule-Out 01/25/2025 01/25/2025 025 12:26 PM EDT Assessment Noted Time PHQ-9 Depression Total Score: 18 022 12:26 AM EDT documented as of this encounter Care Teams Roller Inspector Relationship Specialty Start Date End Date Char Luu MD [address] [place] [address] PCP - General Pediatrics 12/02/24 documented as of this encounter
--- OUTSIDE RECORDS SUMMARY | 2025-02-15 10:23 | XMS_ITS | Clinical Summary ---
Author Organization [employer] tem Address [facility] [place]-[id number] [address] [place] [address] Care Team Providers Care Religious Education Coordinator Name Role Phone Char Luu MD Primary Care Provider + Allergies Active Allergy Reactions Criticality Noted Date Comments Pregabalin 10/27/2017 Nickel Rash Low 05/30/2022 Zonisamide Swelling 03/04/2013 Trouble breathing, tongue swells Medications duloxetine HCl (DULOXETINE ORAL) Take 80 mg by mouth in the morning. Active traZODone (DESYREL) 50 mg tablet Take 0.5 tablets (25 mg total) by mouth nightly. Active busPIRone (BUSPAR) 5 mg tablet Take 2 tablets (10 mg total) by mouth nightly. Active hydrOXYzine (ATARAX) 25 mg tablet Take 1 tablet (25 mg total) by mouth as needed in the morning and 1 tablet (25 mg total) as needed at noon and 1 tablet (25 mg total) as needed in the evening and 1 tablet (25 mg total) as needed before bedtime. Active loratadine (CLARITIN) 10 mg tablet Take 1 tablet (10 mg total) by mouth in the morning. Active guaiFENesin (MUCINEX) 600 mg tablet extended release 12hr Take 1 tablet (600 mg total) by mouth every 12 (twelve) hours. Active oxygen Inhale continuously. Active fluticasone-ume clidin-vilanter (TRELEGY ELLIPTA) 100-62.5-25 mcg blister with deviceIndicatio ns:COPD, severe (CMS-HCC) Inhale 1 puff in the morning. Lot Number: [id number] Expiration Date: 01/2026 Lot Number: [id number] Expiration Date: 02/2026. 2 each 025 Active acetaminophen (TYLENOL) 325 mg tablet Take 2 tablets (650 mg total) by mouth every 6 (six) hours as needed for pain. 30 tablet 025 Active gabapentin (NEURONTIN) 300 mg capsuleIndicati ons:Myoclonus Take 1 capsule (300 mg total) by mouth 3 (three) times a day. 025 Active ipratropium-alb uteroL (DUONEB) 0.5 mg-3 mg(2.5 mg base)/3 mL nebulizerIndica tions:COPD, severe (CMS-HCC) Inhale 3 mL by nebulization in the morning and 3 mL at noon and 3 mL in the evening. 025 Active liothyronine (CYTOMEL) 25 MCG tablet Take 1 tablet (25 mcg total) by mouth in the morning. 025 Active furosemide (LASIX) 20 mg tablet Take 1 tablet (20 mg total) by mouth daily. 025 Active azithromycin (ZITHROMAX) 250 mg tabletIndicatio ns:COPD, severe (CMS-HCC) Take 1 tablet (250 mg total) by mouth 3 (three) times a week. Friday, , Friday 025 2025 Active atorvastatin (LIPITOR) 10 mg tablet Take 1 tablet (10 mg total) by mouth in the morning. Active albuterol (PROVENTIL HFA;VENTOLIN HFA) 90 mcg/actuation inhaler Inhale 2 puffs every 6 (six) hours as needed for wheezing. Active albuterol (ACCUNEB) 0.63 mg/3 mL nebulizer solution Inhale 3 mL (0.63 mg total) by nebulization every 4 (four) hours as needed for wheezing or shortness of breath. Active heparin lock flush, porcine, 10 unit/mL injection Infuse 1-5 mL (10-50 Units total) into a venous catheter as needed (line care per nursing agency protocol.). Active heparin lock flush, porcine, injection 100 unit/mL solution Infuse 1-5 mL (100-500 Units total) into a venous catheter as needed (line care per nursing agency protocol.). Active sodium chloride injection Infuse 10-20 mL into a venous catheter as needed for line care (line care per nursing agency protocol.). Active vancomycin 1,000 mg in sodium chloride 0.9 % 250 mL IVPB W/ADAPTER Infuse 1,000 mg into a venous catheter every 12 (twelve) hours for 8 days. End of therapy 02/18/2025 Weekly CBC, BMP and vanco trough while on vancomycin , fax results to [phone] 1 each 025 2024 Active ferrous sulfate 325 (65 FE) MG tablet Take 1 tablet (325 mg total) by mouth every other day for 60 days. 30 tablet 025 2024 Active warfarin (COUMADIN) 1 mg tablet Take 3 tablets (3 mg total) by mouth in the evening. Active HYDROcodone-meek taminophen (NORCO) 5-325 mg per tabletIndicatio ns:Chronic low back pain, unspecified back pain laterality, unspecified whether sciatica present Take 1 tablet by mouth every 6 (six) hours as needed for pain for up to 3 days. Max Daily Amount: 4 tablets 12 tablet 025 2024 Active gabapentin (NEURONTIN) 600 mg tablet Take 1 tablet (600 mg total) by mouth in the morning and 1 tablet (600 mg total) at noon and 1 tablet (600 mg total) before bedtime. 2024 Discontinued(S top Taking at Discharge) tiZANidine (ZANAFLEX) 4 mg tablet Take 1 tablet (4 mg total) by mouth 2 (two) times a day as needed for muscle spasms. 2024 Discontinued(S top Taking at Discharge) HYDROcodone-meek taminophen (NORCO) 5-325 mg per tablet Take 1 tablet by mouth every 6 (six) hours as needed for pain. 2024 Discontinued(S top Taking at Discharge) albuterol (ACCUNEB) 0.63 mg/3 mL nebulizer solutionIndicat ions:COPD exacerbation ([facility]) USE 1 VIAL IN NEBULIZER MACHINE EVERY 4 HOURS NEEDED FOR WHEEZING FOR UP TO 30 DAYS. 90 mL 12 022 2024 Discontinued(T herapy completed) albuterol (PROVENTIL HFA;VENTOLIN HFA) 90 mcg/actuation inhalerIndicati ons:COPD, severe (CMS-HCC) Inhale 2 puffs every 6 (six) hours as needed for wheezing. Patient prefers Ventolin 18 g 11 023 2024 Discontinued(T herapy completed) albuterol (PROVENTIL,VENT SAMINA) 2.5 mg /3 mL (0.083 %) nebulizer solutionIndicat ions:COPD, severe (CMS-HCC) Inhale 3 mL (2.5 mg total) by nebulization 4 (four) times a day as needed for wheezing. 75 mL 12 025 2024 Discontinued(T herapy completed) azithromycin (ZITHROMAX) 250 mg tabletIndicatio ns:COPD, severe (CMS-HCC) Take 1 tablet (250 mg total) by mouth 3 (three) times a week. Friday, , Friday 36 tablet 3 2024 Discontinued warfarin (COUMADIN) 5 mg tabletIndicatio ns:PAF (paroxysmal atrial fibrillation) ([facility]) TAKE 1 TABLET BY MOUTH ONCE DAILY IN THE EVENING [facility] tablet 1 025 2024 Discontinued(S top Taking at Discharge) furosemide (LASIX) 20 mg tablet Take 2 tablets by mouth once daily 180 tablet 2024 Discontinued(S top Taking at Discharge) metoprolol succinate XL (TOPROL XL) 25 mg 24 hr tablet TAKE 1 TABLET BY MOUTH IN THE MORNING 90 tablet 3 2024 Discontinued(S top Taking at Discharge) pravastatin (PRAVACHOL) 10 mg tablet TAKE 1 TABLET BY MOUTH IN THE EVENING. Must complete fasting labs for further fills 30 tablet 025 2024 Discontinued(T herapy completed) flecainide (TAMBOCOR) 50 mg tablet Take 1 tablet (50 mg total) by mouth every 12 (twelve) hours. 2024 Discontinued metoprolol succinate XL (TOPROL XL) 50 mg 24 hr tablet Take 1 tablet (50 mg total) by mouth in the morning. 2024 Discontinued(S top Taking at Discharge) doxycycline (VIBRAMYCIN) 100 mg capsule Take 1 capsule (100 mg total) by mouth in the morning and 1 capsule (100 mg total) before bedtime. Do all this for 2 days. 2024 predniSONE (DELTASONE) 20 mg tablet Take 2 tablets (40 mg total) by mouth daily with breakfast for 2 days. 2024 warfarin (COUMADIN) 5 mg tablet 5mg PO daily until otherwise indicated 2024 Discontinued(S top Taking at Discharge) warfarin (COUMADIN) 1 mg tablet 1mg on 01/30 then 2.5mg qd starting 01/31/2025 2024 Discontinued vancomycin 1,000 mg in sodium chloride 0.9 % 250 mL IVPB W/ADAPTER Infuse 1,000 mg into a venous catheter every 12 (twelve) hours for 9 days. 2024 Discontinued HYDROcodone-meek taminophen (NORCO) 5-325 mg per tabletIndicatio ns:Chronic low back pain, unspecified back pain laterality, unspecified whether sciatica present Take 1 tablet by mouth every 6 (six) hours as needed for pain for up to 3 days. Max Daily Amount: 4 tablets 12 tablet 2024 Discontinued Active Problems Problem Noted Date Diagnosed Date Presence of permanent cardia c pacemaker Oliveros RV lead at [facility] 01/28/25 Dr Jamir Manzanares 02/09/2025 Paroxysmal atrial fibrillation 02/09/2025 Acute on chronic respiratory failure 02/04/2025 Myoclonus 01/25/2025 Mixed hyperlipidemia 10/22/2024 COPD, severe 09/26/2022 Chronic respiratory failure with hypoxia and hyp ercapnia 09/26/2022 WILIAN treated with BiPAP 09/26/2022 Anxiety 06/26/2022 Primary hypertension 06/25/2022 Assessment & Plan (08/05/2022 6:34 PM EST): Controlled on Toprol. In the past was on Norvasc no indication for that. Continue low-dose diuretic that she is on chronically. No indication was spironolactone. Seasonal allergies 06/25/2022 Pulmonary nodule less than 6 mm determined by computed tomography of lung 06/25/2022 Typical atrial flutter 06/17/2022 Overview (08/05/2022): Symptomatic typical with rapid ventricular response. Cardioversion in May 2022 following that typical atrial flutter ablation June 19, 2022. Chads Vasc score of 2 given hypertension and sex Assessment & Plan (08/05/2022 6:33 PM EST): She has not had any documented AFib whatsoever during her admission in May and in June at [facility] both of them were typical atrial flutter with rapid rates. Also since then after the ablation on June 19 had admission with community-acquired pneumonia with no AFib. In light of no recurrent with AFib atrial flutter I would keep her on warfarin for now but I suspect her only atrial arrhythmia was typical atrial flutter. With many patient with atrial flutter can have AFib as well I would keep her on warfarin for now. I suggested getting a smart watch record daily pulse and rhythm and I will see her back in 6 months and see if that she has had any out of range rhythm or pulse if so will investigate this further. Optimally/ideally would like to get a 30 day continuous senior business broker unfortunate patient does not have any insurance and she is a self a and cost will be S2 normal call hence we are holding off on continuous 30 day senior business broker. If at that visit in 6 months if she has not had any recurrent rhythm or pulse shows a concerning for AFib will plan to stop the warfarin and start her on aspirin. She is tolerating beta-david well hence I would continue that dose that she is presently on. I asked her to follow-up with General Cardiology for which she has a follow-up I believe in October in 3 months from now and then she will see me in 6 months. rn documentation specialist (current) use of anticoagulants 2021 Resolved Problems Problem Noted Date Diagnosed Date Resolved Date NSTEMI (non-ST elevated myoc ardial infarction) 01/14/2025 02/09/2025 Influenza A 09/02/2022 09/26/2022 Acute respiratory failure 09/02/2022 CAP (community acquired pneumonia) 06/26/2022 09/26/2022 Hospital-acquired pneumonia 06/24/2022 09/26/2022 Subtherapeutic anticoagulation 06/17/2022 10/22/2024 COPD exacerbation 05/30/2022 09/26/2022 Encounters Date Type Department Care Team Description 02/07/2025 Orders Only [facility] [address] [place] [phone] Transcribe, Orders Support User Pain (Primary Dx) 02/04/2025 10:58 AM EDT - 02/12/2025 4:14 PM EDT Hospital Encounter [facility] - GEN [address] Acute [address] [place] [phone] Alejo Villalobos MD Noumi, Andre, MD Coagulase negative Staphylococcus bacteremia (Primary Dx); Chronic low back pain, unspecified back pain laterality, unspecified whether sciatica present; alf (current) use of anticoagulants; Typical atrial flutter ([facility]); COPD, severe ([facility]); Chronic respiratory failure with hypoxia and hypercapnia ([facility]); WILIAN treated with BiPAP Discharge Disposition: Assisted Facility-Medicare Cert 02/04/2025 8:45 AM EDT Ancillary Procedure [facility] [address] [place] [phone] Pain 02/04/2025 8:40 AM EDT Ancillary Procedure [facility] [address] [place] [phone] Pain 02/04/2025 8:35 AM EDT Ancillary Procedure [facility] [address] [place] [phone] Pain 02/04/2025 8:00 AM EDT Ancillary Procedure [facility] [address] [place] [address] Pain 02/04/2025 Travel 02/03/2025 Telephone [facility] [address] [place] [address] Sugey Nick CMA 01/31/2025 Telephone [facility] [address] [place] [address] Ivonne Manzanares MD PT Discharge 01/31/2025 Follow Up Anticoagulation [facility] - Pharmacy Medication Management [address] [place] [phone] [facility] rn documentation specialist (current) use of anticoagulants (Primary Dx) 01/28/2025 8:00 AM EDT - 01/28/2025 10:00 AM EDT Surgery [facility] - [facility] Rhythm [facility] [address] [place] [phone] Ivonne Manzanares MD EP Invasive Oliveros single-chamber pacemaker/AV node ablation 01/27/2025 Telephone [facility] [address] [place] [address] Oseas Carson CMA Patient Information 01/24/2025 Telephone [facility] [address] [place] [address] Silvana Cantor Atrial Fibrillation (Contract: [id number] Echols [facility] Afib w/RVR; Rm [id number]) 01/24/2025 Telephone [facility] [address] [place] [address] Brianna Cole UPDATE FOR PATIENT 01/21/2025 Telephone [facility] [address] [place] [address] [facility] Follow-up 01/17/2025 Telephone [facility] [address] [place] [address] Mechelle Bailey, RN Critical CO2 from [facility] 01/17/2025 Telephone [facility] - Pharmacy Medication Management [address] [place] [address] Doris Ramirez MA 01/15/2025 Telephone [facility] [address] [place] [phone] Melody Mann bipap mgmt 01/15/2025 Telephone [facility] [address] [place] [address] Melody Mann nstemi 01/14/2025 11:18 PM EDT - 01/30/2025 12:33 PM EDT Hospital Encounter [facility] - GEN 5 Acute [address] [place] [phone] Meeta Weiss MD Bommana, MD Saud Pina Ravi P, MD Maqsood, Aadil, MD Coarse tremor (Primary Dx); COPD, severe ([facility]); Myoclonus; NSTEMI (non-ST elevated myocardial infarction) ([facility]) Discharge Disposition: Assisted Facility-Medicare [facility] 01/14/2025 2:25 PM EDT - 01/14/2025 10:10 PM EDT Emergency [facility] - Emergency [address] [phone] Brit Billy MD NSTEMI (non-ST elevated myocardial infarction) ([facility]) (Primary Dx); Atrial fibrillation with RVR ([facility]) Discharge Disposition: [facility] 01/14/2025 Telephone [facility] [address] [place] [address] Brianna Cole ; NSTEMI 01/14/2025 Travel 01/14/2025 Telephone [facility] [address] [place] [address] Rosa Han, DONOR SERVICES TEAM LEADER 01/07/2025 Telephone [facility] - Pharmacy Medication Management [address] [place] [address] Medication Management, [facility] 12/21/2024 Refill [facility] [address] [place] [phone] Monae Peña [employer] Med Refill 12/14/2024 Refill [facility] [address] [place] [phone] Monae Peña [employer] Med Refill 12/10/2024 2:00 PM EDT Follow Up Anticoagulation [facility] - Pharmacy Medication Management [address] [place] [address] rn documentation specialist (current) use of anticoagulants (Primary Dx) 12/10/2024 Travel 12/02/2024 10:10 PM EDT - 12/02/2024 11:55 PM EDT Emergency [facility] - Emergency [address] [place] [address] Kiley Bettencourt MD Epistaxis (Primary Dx) Discharge Disposition: Home 12/02/2024 Travel 11/28/2024 Refill [facility] [address] [place] [phone] Monae Peña [employer] Med Refill 11/22/2024 Telephone [facility] - Pharmacy Medication Management [address] [place] [address] Medication Management, [facility] 11/17/2024 Refill [facility] [address] [place] [phone] Monae Peña [employer] Med Refill 11/17/2024 Refill [facility] [address] [place] [phone] NobleJace APRN-CNP Med Refill 11/16/2024 Refill [facility] - Pharmacy Medication Management [address] [place] [address] Dedra Krishnan APRN-CNP PAF (paroxysmal atrial fibrillation) ([facility]) 11/15/2024 Refill [facility] [address] [facility] [place] [address] Ting Henry RMA COPD, severe ([facility]) from Last 3 Months Immunizations Immunization Administration Dates Next Due COVID-19, mRNA, LNP-S, PF, 1 00mcg/0.5mL Dose 01/09/2021,12/12/2020 Influenza, Injectable, Quadrivalent 06/16/2019 Influenza, Injectable, quadrivalent (PF) 018,10/06/2017,07/23/2013 Family History Medical History Relation Name Comments Alcohol abuse Brother 1 Alcohol abuse Brother 2 Cancer Father Cancer Mother throat Parkinsonism Sister Relation Name Status Comments Brother 1 Brother 2 Father Mother Sister Social History Tobacco Use Types Packs/Day Years Used Date Smoking Tobacco: Former Smokeless Tobacco: Never Tobacco Cessation:Counseling Given: Not Answered Alcohol Use Standard Drinks/Week Comments Not Currently 0 (1 standard drink = 0.6 oz pur e alcohol) [facility] Utilities Answer Date Recorded In the past 12 months has [email or web address], gas, oil, or water [employer] threatened to shut off services in your [...] often do you attend chur ch or baptism services? Never 06/25/2022 Do you belong to any clubs o r organizations such as jain groups, unions, fraternal or athletic groups, or [...] Answer Date Recorded Total Score 18 01/15/2025 [facility] - Occupational Stress [...] on file Sexual Orientation Not on file Last Filed Vital Signs Vital Sign Reading [...] Mass Index 24.35 02/06/2025 11:51 PM EDT Plan of Treatment Upcoming Encounters Date Type Department Care Team (Late st Contact Info) Description 03/01/2025 2:00 PM EDT Clinical Support [facility] [address] [place] [phone] Health Maintenance Due Date Last Done Comments DTaP,Tdap and Td Vaccines (1 - Tdap) 12/15/1978 Zoster (Shingles) Vaccine (1 of 2) 12/15/2009 COVID-19 Vaccine (3 - 2023-2 5 season) 2024 01/09/2021, 12/12/2020 Fall Risk Screening 12/15/2024 Influenza Vaccine 05/16/2025 06/16/2019, , 10/06/2017, Additional history exists Depression Screening 01/15/2026 01/15/2025 Tobacco Screening 02/10/2026 02/10/2025 Adult BMI Screening 02/12/2026 02/12/2025 Goals Goal Patient Goal Type Associated Problems Recent Progress Patient-Stated? Author SNF General Yes Olena Paris, RN Note: Evaluation of progress towards goal: Progress to a safe discharge Medical Devices Implanted Type Area Locomotive Crane Operator Helper Device Identifier Shelf Expiration Date Model / Serial / Lot Lead Pcng 65cm Ultipace Mr Conditional Bp Strd Kriss Pu Ptfe - [id number] - [id number] Implanted:Qty: 1 on 01/28/2025 by Ivonne Manzanares MD at [facility] Implant Lead Left: Chest [facility] [employer] MGT [id number] 11/13/2027 [id number] / [id number] / Lead Pcng 52cm Ultipace Mr Conditional Bp Strd Kriss Pu Ptfe - [id number] - [id number] Implanted:Qty: 1 on 01/28/2025 by Ivonne Manzanares MD at [facility] Implant Lead Left: Chest [employer] MGT [id number] 11/13/2027 [id number]/ [id number] / [id number] / Pacemaker Thk6mm Assurity Mri 2 Chmbr Is-1 Cnct [id number] [facility] [id number] - [id number] Implanted:Qty: 1 on 01/28/2025 by Ivonne Manzanares MD at [facility] Other Implant Left: Chest [employer] MGT [id number] 04/14/2026 [id number] / [id number] / Procedures Procedure Name Priority Date/Time Associated Diagnosis Comments BLOOD GAS, ARTERIAL Routine 02/12/2025 1 0:03 AM EDT CBC WITH AUTO DIFFERENTIAL Routine 02/12/2025 4:38 AM EDT PROTIME & INR Routine 02/12/2025 4:38 AM EDT PHOSPHORUS Routine 02/12/2025 4:38 AM EDT MAGNESIUM Routine 02/12/2025 4:38 AM EDT COMPREHENSIVE METABOLIC PANEL Routine 02/12/2025 4:38 AM EDT MAGNESIUM Routine 02/11/2025 3:03 PM EDT POTASSIUM Routine 02/11/2025 3:03 PM EDT BLOOD GAS, ARTERIAL Routine 02/11/2025 1 1:20 AM EDT FL SWALLOW MOTILITY FUNCTION Routine 02/11/2025 10:37 AM EDT BIPAP/CPAP/AUTOPAP Routine 02/11/2025 8: 00 AM EDT VANCOMYCIN, PEAK Routine 02/11/2025 7:58 AM EDT VANCOMYCIN, TROUGH Routine 02/11/2025 5: 19 AM EDT CBC WITH AUTO DIFFERENTIAL Routine 02/11/2025 5:19 AM EDT PROTIME & INR Routine 02/11/2025 5:19 AM EDT PHOSPHORUS Routine 02/11/2025 5:19 AM EDT MAGNESIUM Routine 02/11/2025 5:19 AM EDT COMPREHENSIVE METABOLIC PANEL Routine 02/11/2025 [...] VANCOMYCIN, PEAK Routine 02/09/2025 5:05 AM EDT HEPARIN ANTI XA, UNFRACTIONATED Routine 02/09/2025 1:17 AM EDT CBC WITH AUTO DIFFERENTIAL Routine 02/09/2025 1:17 AM EDT PROTIME & INR Routine 02/09/2025 1:17 AM EDT PHOSPHORUS Routine 02/09/2025 1:17 AM EDT MAGNESIUM Routine 02/09/2025 1:17 AM EDT COMPREHENSIVE METABOLIC PANEL Routine 02/09/2025 1:17 AM EDT VANCOMYCIN, TROUGH Routine 02/09/2025 1: 17 AM EDT US CHEST LT Routine 02/08/2025 1:51 PM EDT ECHO COMPLETE WO CONTRAST Routine 02/08/2025 12:44 PM EDT POTASSIUM Routine 02/08/2025 12:29 PM EDT IONIZED MAGNESIUM Routine 02/08/2025 12: 29 PM EDT BLOOD GAS, ARTERIAL Routine 02/08/2025 1 1:31 AM EDT HEPARIN ANTI XA, UNFRACTIONATED Routine 02/08/2025 2:02 AM EDT CBC WITH AUTO DIFFERENTIAL Routine 02/08/2025 2:02 AM EDT PROTIME & INR Routine 02/08/2025 2:02 AM EDT PHOSPHORUS Routine 02/08/2025 2:02 AM EDT MAGNESIUM Routine 02/08/2025 2:02 AM EDT COMPREHENSIVE METABOLIC PANEL Routine 02/08/2025 2:02 AM EDT VENTILATION Routine 02/08/2025 12:00 AM EDT HEPARIN ANTI XA, UNFRACTIONATED Routine 02/07/2025 10:03 PM EDT VENTILATION Routine 02/07/2025 8:00 PM EDT VANCOMYCIN, PEAK Routine 02/07/2025 4:33 PM EDT HEPARIN ANTI XA, UNFRACTIONATED Routine 02/07/2025 4:33 PM EDT VANCOMYCIN, TROUGH Routine 02/07/2025 11 :42 AM EDT HEMOGLOBIN AND HEMATOCRIT, BLOOD Routine 02/07/2025 9:11 AM EDT POTASSIUM Routine 02/07/2025 9:11 AM EDT HEPARIN ANTI XA, UNFRACTIONATED Routine 02/07/2025 9:11 AM EDT FL SWALLOW [...] XA, UNFRACTIONATED Routine 02/06/2025 5:32 PM EDT POTASSIUM Routine 02/06/2025 11:15 AM EDT HEPARIN ANTI XA, UNFRACTIONATED Routine 02/06/2025 11:15 AM EDT BLOOD GAS, ARTERIAL Routine 02/06/2025 8 :30 AM EDT VENTILATION Routine 02/06/2025 8:00 AM EDT RESP PULMONARY DISEASE PATIENT Routine 02/06/2025 7:44 AM EDT POTASSIUM Routine 02/06/2025 7:07 AM EDT VENTILATION Routine 02/06/2025 4:00 AM EDT APTT Add-On 02/06/2025 2:01 AM EDT CBC WITH AUTO DIFFERENTIAL Routine 02/06/2025 2:01 AM EDT PROTIME & INR [...] & INR Routine 02/05/2025 2:52 AM EDT MAGNESIUM Routine 02/05/2025 2:52 AM EDT COMPREHENSIVE METABOLIC PANEL Routine 02/05/2025 2:52 AM EDT PHOSPHORUS Routine 02/05/2025 2:52 AM EDT ECG 12-LEAD Routine 02/05/2025 1:10 AM EDT RESP ARTERIAL LINE SETUP Routine 02/05/2025 12:00 AM EDT IONIZED MAGNESIUM Routine 02/04/2025 10: 32 PM EDT PHOSPHORUS Routine 02/04/2025 8:02 PM EDT RESP ARTERIAL LINE SETUP Routine 02/04/2025 8:00 PM EDT POTASSIUM Routine 02/04/2025 5:55 PM EDT TROP I, HIGH SENSITIVITY 1 HOUR STAT 02/04/2025 5:55 PM EDT RESP ARTERIAL LINE [...] ARTERIAL Routine 02/04/2025 1 2:13 PM EDT FERRITIN Routine 02/04/2025 12:08 PM EDT IRON AND TIBC Routine 02/04/2025 12:08 PM EDT FOLATE Routine 02/04/2025 12:08 PM EDT VITAMIN B12 Routine 02/04/2025 12:08 PM EDT LACTATE W/ REFLEX STAT 02/04/2025 12: 08 PM EDT TROPONIN I, HIGH SENSITIVITY 0 HOUR STAT 02/04/2025 12:08 PM EDT CBC WITH AUTO DIFFERENTIAL Routine 02/04/2025 12:08 PM EDT PROTIME & INR Routine 02/04/2025 12:08 PM EDT B-TYPE NATRIURETIC PEPTIDE Routine 02/04/2025 12:08 PM EDT TROPONIN I, HIGH SENSITIVITY 0 HOUR STAT 02/04/2025 12:08 PM EDT THYROID PROFILE INCLUDES TSH FT4 Routine 02/04/2025 12:08 PM EDT PHOSPHORUS Routine 02/04/2025 12:08 PM EDT MAGNESIUM Routine 02/04/2025 12:08 PM EDT HEMOGLOBIN A1C Routine 02/04/2025 12:08 PM EDT COMPREHENSIVE METABOLIC PANEL Routine 02/04/2025 12:08 PM EDT ECG 12-LEAD Routine 02/04/2025 11:59 AM EDT RESP PATHOGENS PANEL/SARS-COV-2 STAT 02/04/2025 11:47 AM EDT MRSA PCR NASAL SWAB Routine 02/04/2025 1 1:47 AM EDT LOWER RESP CULTURE SPUTUM CULTURE INC GRAM STAIN Routine 02/04/2025 11:47 AM EDT URINALYSIS Routine 02/04/2025 11:43 AM EDT URINE CULTURE Routine 02/04/2025 11:43 AM EDT BEDSIDE GLUCOSE Routine 02/04/2025 11:[address] ABDOMEN AND PELVIS W CONT Routine 02/04/2025 8:[address] CHEST W CONT Routine 02/04/2025 8:[address] BRAIN WO CONT Routine 02/04/2025 8:35 AM EDT Pain XR CHEST 1 VW Routine 02/04/2025 8:00 AM EDT Pain RESP/PULM RESULTS REPORT (SCANNED INTO EHR) 02/03/2025 10:09 AM EDT PROTIME & INR Routine 01/30/2025 5:20 AM EDT CBC WITH AUTO DIFFERENTIAL Routine 01/30/2025 5:20 AM EDT MAGNESIUM Routine 01/30/2025 5:20 AM EDT COMPREHENSIVE METABOLIC PANEL Routine 01/30/2025 5:20 AM EDT BEDSIDE GLUCOSE Routine 01/29/2025 8:51 AM EDT PROTIME & INR Routine 01/29/2025 6:27 AM EDT CBC WITH AUTO DIFFERENTIAL Routine 01/29/2025 6:27 AM EDT MAGNESIUM Routine 01/29/2025 6:27 AM EDT COMPREHENSIVE METABOLIC PANEL Routine 01/29/2025 6:27 AM EDT BIPAP/CPAP/AUTOPAP Routine 01/28/2025 8: 00 PM EDT XR CHEST 1 VW STAT 01/28/2025 2:03 PM EDT ECG 12-LEAD Routine 01/28/2025 1:29 PM EDT EP INVASIVE Routine 01/28/2025 11:35 AM EDT PROTIME & INR Routine 01/28/2025 7:48 AM EDT CBC WITH AUTO DIFFERENTIAL Routine 01/28/2025 7:48 AM EDT MAGNESIUM Routine 01/28/2025 7:48 AM EDT COMPREHENSIVE METABOLIC PANEL Routine 01/28/2025 7:48 AM EDT BIPAP/CPAP/AUTOPAP Routine 01/27/2025 8: 37 PM EDT ECG 12-LEAD Routine 01/27/2025 4:08 PM EDT PROTIME & INR Routine 01/27/2025 4:39 AM EDT CBC WITH AUTO DIFFERENTIAL Routine 01/27/2025 4:39 AM EDT MAGNESIUM Routine 01/27/2025 4:39 AM EDT COMPREHENSIVE METABOLIC PANEL Routine 01/27/2025 4:39 AM EDT FL SWALLOW MOTILITY FUNCTION Routine 01/26/2025 1:56 PM EDT POTASSIUM Routine 01/26/2025 11:49 AM EDT VENTILATION Routine 01/26/2025 8:00 AM EDT PROTIME & INR Routine 01/26/2025 4:25 AM EDT HEPARIN ANTI XA, UNFRACTIONATED Routine 01/26/2025 4:25 AM EDT CBC WITH AUTO DIFFERENTIAL Routine 01/26/2025 2:20 AM EDT MAGNESIUM Routine 01/26/2025 2:20 AM EDT COMPREHENSIVE METABOLIC PANEL Routine 01/26/2025 2:20 AM EDT HEPARIN ANTI XA, UNFRACTIONATED Routine 01/25/2025 8:44 PM EDT ECHO LIMITED WITHOUT CONTRAST Routine 01/25/2025 2:12 PM EDT EEG VIDEO MONITORING Routine 01/25/2025 1:30 PM EDT DISCONTINUE IN PROCESS EEG TESTING Routine 01/25/2025 1:30 PM EDT VENTILATION Routine 01/25/2025 12:00 PM EDT PROTIME & INR Routine 01/25/2025 10:38 AM EDT VENTILATION Routine 01/25/2025 10:37 AM EDT VENTILATION Routine 01/25/2025 10:37 AM EDT VENTILATION Routine 01/25/2025 10:37 AM EDT VENTILATION Routine 01/25/2025 10:37 AM EDT VENTILATION Routine 01/25/2025 10:37 AM EDT RESP PATHOGENS PANEL/SARS-COV-2 STAT 01/25/2025 10:31 AM EDT BLOOD GAS, ARTERIAL Routine 01/25/2025 1 0:30 AM EDT POTASSIUM, URINE, RANDOM Routine 01/25/2025 7:43 AM EDT CHLORIDE, URINE, RANDOM Routine 01/25/2025 7:43 AM EDT POTASSIUM Routine 01/25/2025 7:43 AM EDT EEG VIDEO MONITORING Routine 01/25/2025 6:00 AM EDT BLOOD GAS, ARTERIAL Routine 01/25/2025 5 :29 AM EDT EEG Routine 01/25/2025 4:48 AM EDT BLOOD GAS, ARTERIAL Routine 01/25/2025 3 :26 AM EDT SALICYLATE LEVEL Add-On 01/25/2025 2:02 AM EDT TROP I, HIGH SENSITIVITY 1 HOUR STAT 01/25/2025 2:02 AM EDT CBC WITH AUTO DIFFERENTIAL Routine 01/25/2025 2:02 AM EDT MAGNESIUM Routine 01/25/2025 2:02 AM EDT COMPREHENSIVE METABOLIC PANEL Routine 01/25/2025 2:[address] ABDOMEN AND PELVIS W CONT Routine 01/25/2025 1:[address] CTA CHEST STAT 01/25/2025 1:[address] BRAIN WO CONT Routine 01/25/2025 1:21 AM EDT RESP ARTERIAL LINE SETUP Routine 01/25/2025 12:00 AM EDT TROPONIN I, HIGH SENSITIVITY 0 HOUR STAT 01/24/2025 11:47 PM EDT TROPONIN I, HIGH SENSITIVITY 0 HOUR STAT 01/24/2025 11:47 PM EDT PROTIME & INR STAT 01/24/2025 11:38 PM EDT RESP ARTERIAL LINE SETUP Routine 01/24/2025 11:24 PM EDT RESP ARTERIAL LINE SETUP Routine 01/24/2025 11:24 PM EDT RESP ARTERIAL LINE SETUP Routine 01/24/2025 11:24 PM EDT ECG 12-LEAD STAT 01/24/2025 10:24 PM EDT XR CHEST 1 VW STAT 01/24/2025 10:17 PM EDT TROP I, HIGH SENSITIVITY 1 HOUR STAT 01/24/2025 10:11 PM EDT HEPARIN ANTI XA, UNFRACTIONATED Routine 01/24/2025 10:11 PM EDT APTT Routine 01/24/2025 10:11 PM EDT TROPONIN I, HIGH SENSITIVITY 0 HOUR STAT 01/24/2025 10:09 PM EDT ECG 12-LEAD STAT 01/24/2025 9:57 PM EDT PROCALCITONIN Routine 01/24/2025 7:18 PM EDT AMMONIA Routine 01/24/2025 7:18 PM EDT LACTATE W/ REFLEX Routine 01/24/2025 7:1 8 PM EDT BLOOD CULTURE STAT 01/24/2025 7:18 PM EDT BLOOD CULTURE STAT 01/24/2025 7:18 PM EDT VENTILATION Routine 01/24/2025 6:38 PM EDT VENTILATION Routine 01/24/2025 6:38 PM EDT VENTILATION Routine 01/24/2025 6:38 PM EDT VENTILATION Routine 01/24/2025 6:38 PM EDT XR ABD NG TUBE PLACEMENT 1 VIEW Routine 01/24/2025 6:38 PM EDT POCT ABG WITH NA, K GLU, ICA AND HCT Routine 01/24/2025 6:33 PM EDT BEDSIDE GLUCOSE Routine 01/24/2025 6:32 PM EDT URINE CULTURE Routine 01/24/2025 6:32 PM EDT B-TYPE NATRIURETIC PEPTIDE Add-On 01/24/2025 6:31 PM EDT MAGNESIUM STAT 01/24/2025 6:31 PM EDT CBC WITH AUTO DIFFERENTIAL STAT 01/24/2025 6:31 PM EDT COMPREHENSIVE METABOLIC PANEL STAT 01/24/2025 6:31 PM EDT XR CHEST 1 VW STAT 01/24/2025 6:30 PM EDT BEDSIDE GLUCOSE Routine 01/24/2025 5:54 PM EDT PROTIME & INR Routine 01/24/2025 4:44 AM EDT CBC WITH AUTO DIFFERENTIAL Routine 01/24/2025 4:44 AM EDT MAGNESIUM Routine 01/24/2025 4:44 AM EDT COMPREHENSIVE METABOLIC PANEL Routine 01/24/2025 4:44 AM EDT VENTILATION Routine 01/23/2025 4:00 PM EDT VENTILATION Routine 01/23/2025 12:00 PM EDT VENTILATION Routine 01/23/2025 8:00 AM EDT PROTIME & INR Routine 01/23/2025 5:05 AM EDT CBC WITH AUTO DIFFERENTIAL Routine 01/23/2025 5:05 AM EDT MAGNESIUM Routine 01/23/2025 5:05 AM EDT COMPREHENSIVE METABOLIC PANEL Routine 01/23/2025 5:05 AM EDT VENTILATION Routine 01/23/2025 4:00 AM EDT VENTILATION Routine 01/23/2025 12:00 AM EDT VENTILATION Routine 01/22/2025 8:00 PM EDT VENTILATION Routine 01/22/2025 12:00 PM EDT MRSA PCR NASAL SWAB Routine 01/22/2025 9 :26 AM EDT FL SWALLOW MOTILITY FUNCTION Routine 01/22/2025 8:53 AM EDT VENTILATION Routine 01/22/2025 8:00 AM EDT POTASSIUM Add-On 01/22/2025 5:28 AM EDT PROCALCITONIN Routine 01/22/2025 5:28 AM EDT HEPARIN ANTI XA, UNFRACTIONATED Routine 01/22/2025 5:28 AM EDT PROTIME & INR Routine 01/22/2025 5:28 AM EDT CBC WITH AUTO DIFFERENTIAL Routine 01/22/2025 5:28 AM EDT MAGNESIUM Routine 01/22/2025 5:28 AM EDT COMPREHENSIVE METABOLIC PANEL Routine 01/22/2025 5:28 AM EDT VENTILATION Routine 01/22/2025 4:00 AM EDT VENTILATION Routine 01/21/2025 4:00 PM EDT XR CHEST 1 VW STAT 01/21/2025 9:52 AM EDT HEPARIN ANTI XA, UNFRACTIONATED Routine 01/21/2025 6:00 AM EDT PROTIME & INR Routine 01/21/2025 6:00 AM EDT CBC WITH AUTO DIFFERENTIAL Routine 01/21/2025 6:00 AM EDT MAGNESIUM Routine 01/21/2025 6:00 AM EDT COMPREHENSIVE METABOLIC PANEL Routine 01/21/2025 6:00 AM EDT VENTILATION Routine 01/21/2025 12:00 AM EDT VENTILATION Routine 01/20/2025 8:00 AM EDT CBC WITH AUTO DIFFERENTIAL Routine 01/20/2025 6:08 AM EDT HEPARIN ANTI XA, UNFRACTIONATED Routine 01/20/2025 6:07 AM EDT PROTIME & INR Routine 01/20/2025 6:07 AM EDT MAGNESIUM Routine 01/20/2025 6:07 AM EDT COMPREHENSIVE METABOLIC PANEL Routine 01/20/2025 6:07 AM EDT VENTILATION Routine 01/19/2025 4:00 PM EDT VENTILATION Routine 01/19/2025 12:00 PM EDT VENTILATION Routine 01/19/2025 8:00 AM EDT HEPARIN ANTI XA, UNFRACTIONATED Routine 01/19/2025 6:09 AM EDT PROTIME & INR Routine 01/19/2025 6:09 AM EDT CBC WITH AUTO DIFFERENTIAL Routine 01/19/2025 6:09 AM EDT MAGNESIUM Routine 01/19/2025 6:09 AM EDT COMPREHENSIVE METABOLIC PANEL Routine 01/19/2025 6:09 AM EDT VENTILATION Routine 01/19/2025 4:00 AM EDT VENTILATION Routine 01/19/2025 12:00 AM EDT BLOOD GAS, VENOUS Routine 01/18/2025 8:3 2 PM EDT HEPARIN ANTI XA, UNFRACTIONATED Routine 01/18/2025 6:08 PM EDT VENTILATION Routine 01/18/2025 4:00 PM EDT HEPARIN ANTI XA, UNFRACTIONATED Routine 01/18/2025 11:52 AM EDT HEPARIN ANTI XA, UNFRACTIONATED Routine 01/18/2025 5:59 AM EDT PROTIME & INR Routine 01/18/2025 5:59 AM EDT THYROID ANTIBODIES INCLUDES TPO AND TGAB Routine 01/18/2025 5:59 AM EDT CBC WITH AUTO DIFFERENTIAL Routine 01/18/2025 5:59 AM EDT MAGNESIUM Routine 01/18/2025 5:59 AM EDT COMPREHENSIVE METABOLIC PANEL Routine 01/18/2025 5:59 AM EDT VENTILATION Routine 01/18/2025 4:00 AM EDT VENTILATION Routine 01/18/2025 12:00 AM EDT VENTILATION Routine 01/17/2025 8:00 PM EDT BLOOD GAS, VENOUS Routine 01/17/2025 7:3 3 PM EDT POTASSIUM Routine 01/17/2025 7:27 PM EDT VENTILATION Routine 01/17/2025 4:00 PM EDT HEPARIN ANTI XA, UNFRACTIONATED Routine 01/17/2025 6:10 AM EDT CBC WITH AUTO DIFFERENTIAL Routine 01/17/2025 6:10 AM EDT MAGNESIUM Routine 01/17/2025 6:10 AM EDT COMPREHENSIVE METABOLIC PANEL Routine 01/17/2025 6:10 AM EDT VENTILATION Routine 01/17/2025 4:00 AM EDT VENTILATION Routine 01/16/2025 8:00 PM EDT VENTILATION Routine 01/16/2025 4:00 PM EDT POTASSIUM Routine 01/16/2025 2:44 PM EDT POTASSIUM Routine 01/16/2025 9:14 AM EDT VENTILATION Routine 01/16/2025 4:00 AM EDT CBC WITH AUTO DIFFERENTIAL Routine 01/16/2025 1:21 AM EDT PHOSPHORUS Routine 01/16/2025 1:21 AM EDT MAGNESIUM Routine 01/16/2025 1:21 AM EDT COMPREHENSIVE METABOLIC PANEL Routine 01/16/2025 1:21 AM EDT HEPARIN ANTI XA, UNFRACTIONATED Routine 01/16/2025 1:21 AM EDT VENTILATION Routine 01/16/2025 12:00 AM EDT HEPARIN ANTI XA, UNFRACTIONATED Routine 01/15/2025 7:11 PM EDT VENTILATION Routine 01/15/2025 4:00 PM EDT ECHO COMPLETE WO CONTRAST Routine 01/15/2025 12:50 PM EDT VENTILATION Routine 01/15/2025 8:00 AM EDT T3, FREE Add-On 01/15/2025 7:13 AM EDT VITAMIN B12 Add-On 01/15/2025 7:13 AM EDT FERRITIN Add-On 01/15/2025 7:13 AM EDT FOLATE Add-On 01/15/2025 7:13 AM EDT IRON AND TIBC Add-On 01/15/2025 7:13 AM EDT THYROID PROFILE INCLUDES TSH FT4 Routine 01/15/2025 7:13 AM EDT HEPARIN ANTI XA, UNFRACTIONATED Routine 01/15/2025 7:13 AM EDT PROTIME & INR Routine 01/15/2025 7:13 AM EDT APTT Routine 01/15/2025 7:13 AM EDT PLATELET COUNT Routine 01/15/2025 7:13 AM EDT HEMOGLOBIN Routine 01/15/2025 7:13 AM EDT VENTILATION Routine 01/15/2025 4:00 AM EDT BLOOD GAS, ARTERIAL Routine 01/15/2025 3 :25 AM EDT VENTILATION Routine 01/15/2025 12:01 AM EDT VENTILATION Routine 01/14/2025 11:56 PM EDT VENTILATION Routine 01/14/2025 11:56 PM EDT VENTILATION Routine 01/14/2025 11:56 PM EDT VENTILATION Routine 01/14/2025 11:56 PM EDT VENTILATION Routine 01/14/2025 11:[address] CTA CHEST STAT 01/14/2025 8:43 PM EDT BIPAP/CPAP/AUTOPAP Routine 01/14/2025 8: 06 PM EDT BLOOD GAS, ARTERIAL Routine 01/14/2025 8 :03 PM EDT TROP I, HIGH SENSITIVITY 3 HOUR STAT 01/14/2025 6:29 PM EDT ECG 12-LEAD STAT 01/14/2025 5:57 PM EDT XR CHEST 1 VW STAT 01/14/2025 4:12 PM EDT TROP I, HIGH SENSITIVITY 1 HOUR STAT 01/14/2025 3:46 PM EDT BLOOD GAS, ARTERIAL Routine 01/14/2025 3 :36 PM EDT HEPARIN ANTI XA, UNFRACTIONATED Add-On 01/14/2025 2:43 PM EDT TROPONIN I, HIGH SENSITIVITY 0 HOUR STAT 01/14/2025 2:43 PM EDT TROPONIN I, HIGH SENSITIVITY 0 HOUR STAT 01/14/2025 2:43 PM EDT MAGNESIUM STAT 01/14/2025 2:43 PM EDT BASIC METABOLIC PANEL STAT 01/14/2025 2:43 PM EDT CBC WITH AUTO DIFFERENTIAL STAT 01/14/2025 2:43 PM EDT THYROID PROFILE INCLUDES TSH FT4 Routine 01/14/2025 2:43 PM EDT APTT STAT 01/14/2025 2:43 PM EDT PROTIME & INR STAT 01/14/2025 2:43 PM EDT ECG 12-LEAD STAT 01/14/2025 2:36 PM EDT PM ED CRITICAL CARE Routine 01/14/2025 2 :27 PM EDT POCT PROTIME / INR Routine 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 Sample type ARTERIAL 02/12/2025 10:12 AM EDT [facility] pH, Arterial 7.342(L) 7.350 - 7.450 02/12/2025 10:12 AM EDT [facility] pCO2, Arterial 91.5(HH) 35.0 - 45.0 mmHg 02/12/2025 10:12 AM EDT [facility] PO2, Arterial 102(H) 80 - 100 mmHg 02/12/2025 10:12 AM EDT [facility] Base, Excess 20.0(H) 0.0 - 2.0 mmol/L 02/12/2025 10:12 AM EDT [facility] HCO3, Arterial 49.6(H) 22.0 - 26.0 mmol/L 02/12/2025 10:12 AM EDT [facility] %O2 Saturation, Arterial 97.0 >90.0 % 02/12/2025 10:12 AM EDT [facility] Diego's test Pass 02/12/2025 10:12 AM EDT [facility] SPO2 100 % 02/12/2025 10:12 AM EDT [facility] Sample site L Rad 02/12/2025 10:12 AM EDT [facility] Insp. O2 conc. 32 % 02/12/2025 10:12 AM EDT [facility] Source Of Oxygen NC 02/12/2025 10:12 AM EDT [facility] arterial (Blood, Arterial) 02/12/2025 10:03 AM EDT 02/12/2025 10:12 AM EDT us Sha Garcia MD LAB BLOOD ORDERABLES Final Resul t [facility] [address] [facility] [place] [address], [place] * (ABNORMAL) CBC auto differential (02/12/2025 4:38 AM EDT) Only the most recent of26 resultswithin the time period is included. WBC 6.1 4 - 11 x10E9/L 02/12/2025 5:52 AM EDT [facility] RBC Count 3.26(L) 3.8 - 5.2 X10E12/L 02/12/2025 5:52 AM EDT [facility] Hemoglobin 9.5(L) 11.7 - 15.5 g/dL 02/12/2025 5:52 AM EDT [facility] Hematocrit 29.9(L) 35 - 47 % 02/12/2025 5:52 AM EDT [facility] MCV 92 80 - 100 fL 02/12/2025 5:52 AM EDT [facility] MCH 29.1 27 - 34 pg 02/12/2025 5:52 AM EDT [facility] MCHC 31.7(L) 32 - 36 g/dL 02/12/2025 5:52 AM EDT [facility] RDW 22.7(H) 11.5 - 15 % 02/12/2025 5:52 AM EDT [facility] Platelet Count 179 150 - 450 X10E9/L 02/12/2025 5:52 AM EDT [facility] MPV 7.7 7 - 12 fL 02/12/2025 5:52 AM EDT [facility] Neutrophils Relatives 78 % 02/12/2025 5:52 AM EDT [facility] Comment:This is an appended report. These results have been appended to a previously preliminary verified report. Lymphocytes Relative 19 % 02/12/2025 5:52 AM EDT [facility] Comment:This is an appended report. These results have been appended to a previously preliminary verified report. Monocytes Relative 3 % 02/12/2025 5:52 AM EDT [facility] Comment:This is an appended report. These results have been appended to a previously preliminary verified report. Neutrophils Absolute (M) 4.8 1.5 - 6.6 10*3/uL 02/12/2025 5:52 AM EDT [facility] Comment:This is an appended report. These results have been appended to a previously preliminary verified report. Lymphocytes Absolute 1.2 1.0 - 3.5 10*3/uL 02/12/2025 5:52 AM EDT [facility] Comment:This is an appended report. These results have been appended to a previously preliminary verified report. Monocytes Absolute 0.2 0.0 - 0.9 10*3/uL 02/12/2025 5:52 AM EDT [facility] Comment:This is an appended report. These results have been appended to a previously preliminary verified report. Hypochromia 1+ 02/12/2025 5:52 AM EDT [facility] Comment:This is an appended report. These results have been appended to a previously preliminary verified report. Polychromasia 1+ 02/12/2025 5:52 AM EDT [facility] Comment:This is an appended report. These results have been appended to a previously preliminary verified report. Differential Type CELLAVISION DIFFERENTIAL 02/12/2025 5:52 AM EDT [facility] Comment:This is an appended report. These results have been appended to a previously preliminary verified report. Blood Venous blood / Unknown 02/12/2025 4:38 AM EDT 02/12/2025 4:52 AM EDT us Vanessa Mccarthy MD LAB BLOOD ORDERABLES Johanna l Result [facility] [address] [place] [address], [place] [phone] * (ABNORMAL) Protime & INR (02/12/2025 4:38 AM EDT) Only the most recent of26 resultswithin the time period is included. PROTIME 22.7(H) 9.8 - 13.2 sec 02/12/2025 5:29 AM EDT [facility] INR 2.0(H) 0.9 - 1.2 02/12/2025 5:29 AM EDT [facility] Blood Venous blood / Unknown 02/12/2025 4:38 AM EDT 02/12/2025 4:52 AM EDT us Vanessa Mccarthy MD LAB BLOOD ORDERABLES Johanna l Result Performing Organization Address City/[facility]/ZIP Co de Phone Number [facility] [address] [place] [address], [place] [phone] * Phosphorus (02/12/2025 4:38 AM EDT) Only the most recent of11 resultswithin the time period is included. PHOSPHORUS 2.7 2.4 - 4.9 mg/dL 02/12/2025 5:32 AM EDT [facility] Blood Venous blood / Unknown 02/12/2025 4:38 AM EDT 02/12/2025 4:52 AM EDT Vanessa Mccarthy MD LAB BLOOD ORDERABLES Johanna l Result [facility] [address] [place] [address], [place] [phone] * Magnesium (02/12/2025 4:38 AM EDT) Only the most recent of27 resultswithin the time period is included. MAGNESIUM 2.0 1.8 - 2.6 mg/dL 02/12/2025 5:32 AM EDT [facility] Blood Venous blood / Unknown 02/12/2025 4:38 AM EDT 02/12/2025 4:52 AM EDT us Vanessa Mccarthy MD LAB BLOOD ORDERABLES Johanna l Result [facility] [address] [place] [address], [place] [phone] * (ABNORMAL) Comprehensive metabolic panel (02/12/2025 4:38 AM EDT) Only the most recent of25 resultswithin the time period is included. SODIUM 147(H) 134 - 146 mmol/L 02/12/2025 5:32 AM EDT [facility] POTASSIUM 4.1 3.5 - 5.0 mmol/L 02/12/2025 5:32 AM EDT [facility] CHLORIDE 94(L) 98 - 109 mmol/L 02/12/2025 5:32 AM [facility] CARBON DIOXIDE >45(H) 22 - 32 mmol/L 02/12/2025 5:32 AM [facility] ANION GAP <8 5 - 15 mmol/L 02/12/2025 5:32 AM [facility] BLOOD UREA NITROGEN 10 5 - 27 mg/dL 02/12/2025 5:32 AM [facility] CREATININE 0.25(L) 0.40 - 1.00 mg/dL 02/12/2025 5:32 AM [facility] Comment:METHOD TRACEABLE TO IDHI STANDARD GLUCOSE 91 65 - 99 mg/dL 02/12/2025 5:32 AM [facility] CALCIUM 8.4(L) 8.5 - 10.5 mg/dL 02/12/2025 5:32 AM [facility] TOTAL PROTEIN 4.8(L) 6.0 - 8.0 g/dL 02/12/2025 5:32 AM [facility] ALBUMIN 3.2 3.2 - 5.3 g/dL 02/12/2025 5:32 AM [facility] ALKALINE PHOSPHATASE 48 39 - 130 U/L 02/12/2025 5:32 AM [facility] AST 12 <=41 U/L 02/12/2025 5:32 AM [facility] ALT 12 <=31 U/L 02/12/2025 5:32 AM [facility] BILIRUBIN,TOTAL 0.5 0.3 - 1.2 mg/dL 02/12/2025 5:32 AM [facility] EGFR Non-Race Dependent >90 >=60 ml/min/1.7 3sq.m 02/12/2025 5:32 AM [facility] Comment: Reported eGFR is based on the CKD-EPI 2020 equation that does not use a race coefficient. Blood Venous blood / Unknown 02/12/2025 4:38 AM EDT 02/12/2025 4:52 AM EDT Vanessa Mccarthy MD LAB BLOOD ORDERABLES Johanna l Result Performing Organization Address City/[facility]/ZIP Co de Phone Number [facility] [address] [place] [address], * Potassium (02/11/2025 3:03 PM EDT) Only the most recent of14 resultswithin the time period is included. POTASSIUM 4.0 3.5 - 5.0 mmol/L 02/11/2025 3:56 PM EDT [facility] Blood Venous blood / Unknown Line / Unknown 02/11/2025 3:03 PM EDT 02/11/2025 3:29 PM EDT Sha Garcia MD LAB BLOOD ORDERABLES Final Resul t Performing Organization Address City/[facility] Co de Phone Number [facility] [address] [place] [address], * Fluoroscopy swallow motility function (02/11/2025 10:37 AM EDT) Only the most recent of4 resultswithin the time period is included. Anatomical Region Laterality Modality Chest, Abdomen, Body [...] by Jody Bradford MD on 02/11/2025 10:45 Fede FALL MD have personally reviewed the image(s) and [...] report for additionaldetails and recommendations. Approved by Res Roberto Bradford MD on 02/11/2025 10:45 AM Fede Mclean MD have personally reviewed the image(s) and agree withand/or edited the report Finalized by Fede Pepper MD on 02/11/2025 10:59 AM Sha Garcia MD IMG FLUOROSCOPY ORDERABLES Final Result * (ABNORMAL) Vancomycin, peak (02/11/2025 7:58 AM EDT) Only the most recent of3 resultswithin the time period is included. VANCOMYCIN PEAK 24.3(L) 30.0 - 40.0 ug/mL 02/11/2025 8:46 AM EDT [facility] Blood Venous blood / Unknown 02/11/2025 7:58 AM EDT 02/11/2025 8:16 AM EDT Yazmin Rodgers DO LAB BLOOD ORDERABLES Final Res ult [facility] [address] [place] [address], [place] [phone] * Vancomycin, trough To be drawn prior to the 0600 dose. *Time sensitive-DO NOT RETIME without consult pharmacy* (02/11/2025 5:19 AM EDT) Only the most recent of3 resultswithin the time period is included. VANCOMYCIN TROUGH 10.8 5.0 - 20.0 ug/mL 02/11/2025 6:05 AM EDT [facility] Blood Venous blood / Unknown 02/11/2025 5:19 AM EDT 02/11/2025 5:34 AM EDT us Yazmin Rodgers DO LAB BLOOD ORDERABLES Final Res ult [facility] [address] [place] [address], [place] [phone] * X-ray chest 1 view (02/10/2025 9:12 AM EDT) Only the most recent of11 resultswithin the time period is included. Anatomical Region Laterality Modality Body, Chest N/A [...] Otherwise no significant interval change. Approved by Res Augustin Mohamud DO on 02/10/2025 9:26 AM Manuel [...] Manuel Fung MD on 02/10/2025 11:23 AM us Eliud Ledesma MD IMG DIAGNOSTIC IMAGING ORDERABLE S Final Result * (ABNORMAL) Anti XA unfractionated heparin (02/09/2025 1:17 AM EDT) Only the most recent of23 resultswithin the time period is included. ANTI XA UFH <0.04(L) 0.30 - 0.70 IU/mL 02/09/2025 2:00 AM EDT [facility] Blood Venous blood / Unknown 02/09/2025 1:17 AM EDT 02/09/2025 1:17 AM EDT us Sandro Peters MD LAB BLOOD ORDERABLES Final R esult [facility] [address] [place] [address], [place] [phone] * Ultrasound chest left (02/08/2025 1:51 PM [...] proximal 14 cm XCELERA Left Ventricle Mass 207.13140 [id number] 1 g XCELERA Interventricular Septum Diastolic Thickness [...] to patient's unable to lay left lateral. Vanessa Mccarthy MD CV ECHO ORDERABLES Final Result * Ionized magnesium (02/08/2025 12:29 PM EDT) Only the most recent of2 resultswithin the time period is included. IONIZED MAGNESIUM 0.60 0.45 - 0.74 mmol/L 02/08/2025 1:04 PM EDT [facility] Blood Venous blood / Unknown 02/08/2025 12:29 PM EDT 02/08/2025 12:50 PM EDT Sandro Peters MD LAB BLOOD ORDERABLES Final R esult [facility] [address] [place] [address], [place] [phone] * (ABNORMAL) Hemoglobin and hematocrit, blood (02/07/2025 9:11 AM EDT) Pathologist [facility] Hemoglobin 8.5(L) 11.7 - 15.5 g/dL 02/07/2025 9:50 AM EDT [facility] Hematocrit 26.5(L) 35 - 47 % 02/07/2025 9:50 AM EDT [facility] Blood Venous blood / Unknown Line / Unknown 02/07/2025 9:11 AM EDT 02/07/2025 9:39 AM EDT Yumiko Childers MD LAB BLOOD ORDERABLES Final Re sult [facility] [address] [place] [address], * Transfuse RBC:1 Unit (02/07/2025 9:08 AM EDT) Claus Felix MD BLOOD TRANSFUSION ORDERABLES Fin al Result * Type and screen(includes indirect ethan) (02/07/2025 4:02 AM EDT) Pathologist [facility] ABO A 02/07/2025 5:19 AM EDT [facility] RH Positive 02/07/2025 5:19 AM EDT [facility] Antibody Screen Negative 02/07/2025 5:19 AM EDT [facility] Blood Venous blood / Unknown 02/07/2025 4:02 AM EDT 02/07/2025 4:15 AM EDT Claus Felix MD BLOOD BANK TEST ORDERABLES Edite d Result - Final [facility] [address] [place] [address], [facility] [address] [place] [address], * Crossmatch RBC:Number of Units: 1 (02/07/2025 4:00 AM EDT) [facility] Blood component type [id number] BLOOD DESIREE MORA Unit number [id number] BL OOD DESIREE - MORGAN Unit ABO A BLOOD BANK - MORGAN Unit RH POS BLOOD BANK - MORGAN Crossmatch Compatible BLOOD BA NK - MORGAN Status of unit TRANSFUSED BLOO D DESIREE MORA Expiration Date BLOOD BANK - MORGAN BB Type Barcode 6200 BLOOD BANK - MORGAN Blood Venous blood / Unknown 02/07/2025 4:00 AM EDT 02/07/2025 4:15 AM EDT us Claus Felix MD BLOOD BANK PRODUCT ORDERABLES Ed ited Result - Final BLOOD DESIREE - MORGAN * ABO Rh Repeat (02/07/2025 2:00 AM EDT) ABO A 02/07/2025 4:19 AM EDT [facility] RH Positive 02/07/2025 4:19 AM EDT [facility] 02/07/2025 2:00 AM EDT 02/07/2025 4:07 AM EDT us Claus Felix MD BLOOD BANK TEST ORDERABLES Final Result Performing Organization Address City/[facility]/ZIP Co de Phone Number [facility] [address] [place] [address], [place] * APTT (02/06/2025 2:01 AM EDT) Only the most recent of5 resultswithin the time period is included. APTT 26 26 - 37 sec 02/06/2025 6:13 AM EDT [facility] Blood Venous blood / Unknown 02/06/2025 2:01 AM EDT 02/06/2025 2:13 AM EDT us Claus Felix MD LAB BLOOD ORDERABLES Final Resul t [facility] [address] [place] [address], [place] [phone] * Blood culture #2 (02/05/2025 12:31 PM EDT) Only the most recent of6 resultswithin the time period is included. CULTURE RESULTS NO GROWTH 5 DAYS 02/10/2025 2:01 PM EDT [facility] Blood Venous blood / Unknown 02/05/2025 12:31 PM EDT 02/05/2025 12:31 PM EDT Yazmin Rodgers DO MICROBIOLOGY - GENERAL ORDERAB LES Final Result [facility] [address] [place] [address], * (ABNORMAL) B-type natriuretic peptide (02/05/2025 10:11 AM EDT) Only the most recent of3 resultswithin the time period is included. BNP 169(H) <=100 pg/mL 02/05/2025 10:51 AM EDT [facility] Blood Venous blood / Unknown Line / Unknown 02/05/2025 10:11 AM EDT 02/05/2025 10:22 AM EDT Uli Orlando MD LAB BLOOD ORDERABLES Final Re sult Performing Organization Address City/[facility]/ZIP Co de Phone Number [facility] [address] [place] [address], * ECG 12 Lead (02/05/2025 1:10 AM EDT) Only the most recent of9 resultswithin the time period is included. 02/05/2025 1:10 AM EDT Narrative [facility] - 02/05/2025 2:17 PM EDT Deja Coffey MD ECG ORDERABLES Final Result [facility] * (ABNORMAL) Troponin I, High Sensitivity 1 Hour (02/04/2025 5:55 PM EDT) Only the most recent of4 resultswithin the time period is included. [facility] TROPONIN I, HIGH SENSITIVITY 81(H) <16 ng/L 02/04/2025 6:42 PM EDT [facility] Blood Venous blood / Unknown 02/04/2025 5:55 PM EDT 02/04/2025 6:09 PM EDT Narrative [facility] - 02/04/2025 6:42 PM EDT Elevations of hs-Troponin may be due to causes other than myocardial ischemia. Recommend serial hs-Troponin testing be performed. For the initial evaluation and management of chest pain patients, refer to the algorithms linked below. Emergency Patient: [email or web address]: [email or web address] Vanessa Mccarthy MD LAB BLOOD ORDERABLES Johanna l Result [facility] [address] [place] [address], * (ABNORMAL) BLOOD CULTURE IDENTIFICATION PANEL (02/04/2025 1:35 PM EDT) [facility] Staphylococcus species PCR Detected( A) Not Detected 02/05/2025 10:49 AM EDT [facility] Comment: (not S. aureus, S.epidermidis, or S.lugdunensis) This is an appended report. These results have been appended to a previously final verified report. Blood Venous blood / Unknown Line / Unknown 02/04/2025 1:35 PM EDT 02/04/2025 4:01 PM EDT us Yumiko Childers MD MICROBIOLOGY - GENERAL ORDERA BLES Edited Result - Final Performing Organization Address City/[facility]/ZIP Co de Phone Number [facility] [address] [place] [address], [place] [phone] * (ABNORMAL) Troponin I, High Sensitivity 0 Hour (02/04/2025 12:08 PM EDT) Only the most recent of3 resultswithin the time period is included. TROPONIN I, HIGH SENSITIVITY 96(H) <16 ng/L 02/04/2025 3:05 PM EDT [facility] Blood Venous blood / Unknown 02/04/2025 12:08 PM EDT 02/04/2025 1:24 PM EDT us Vanessa Mccarthy MD LAB BLOOD ORDERABLES Johanna l Result Performing Organization Address City/[facility]/ZIP Co de Phone Number [facility] [address] [place] [address], [place] [phone] * Lactate w/ Reflex (02/04/2025 12:08 PM EDT) Only the most recent of2 resultswithin the time period is included. LACTATE W/REFLEX 1.6 0.4 - 2.0 mmol/L 02/04/2025 1:54 PM EDT [facility] Blood Venous blood / Unknown 02/04/2025 12:08 PM EDT 02/04/2025 1:24 PM EDT Narrative [facility] - 02/04/2025 1:54 PM EDT Result did not trigger repeat Lactate, re-order if needed. us Vanessa Mccarthy MD LAB BLOOD ORDERABLES Johanna l Result [facility] [address] [place] [address], [place] [phone] * (ABNORMAL) Thyroid profile includes TSH FT4 (02/04/2025 12:08 PM EDT) Only the most recent of3 resultswithin the time period is included. FREE T4 0.82 0.61 - 1.60 ng/dL 02/04/2025 2:25 PM EDT [facility] TSH 0.13(L) 0.49 - 4.67 uIU/mL 02/04/2025 2:25 PM EDT [facility] Blood Venous blood / Unknown 02/04/2025 12:08 PM EDT 02/04/2025 1:24 PM EDT us Vanessa Mccarthy MD LAB BLOOD ORDERABLES Johanna l Result [facility] [address] [place] [address], [place] [phone] * (ABNORMAL) Iron and TIBC (02/04/2025 12:08 PM EDT) Only the most recent of2 resultswithin the time period is included. IRON 34(L) 50 - 170 ug/dL 02/04/2025 2:03 PM EDT [facility] TRANSFERRIN 215 168 - 336 mg/dL 02/04/2025 2:03 PM EDT [facility] IRON BINDING 301 250 - 425 ug/dL 02/04/2025 2:03 PM EDT [facility] IRON SATURATION 11(L) 15 - 50 % SATURATION 02/04/2025 2:03 PM EDT [facility] Blood Venous blood / Unknown 02/04/2025 12:08 PM EDT 02/04/2025 1:24 PM EDT us Vanessa Mccarthy MD LAB BLOOD ORDERABLES Johanna l Result [facility] [address] [place] [address], [place] [phone] * Hemoglobin A1c (02/04/2025 12:08 PM EDT) HEMOGLOBIN A1C 4.8 4.4 - 5.6 % 02/05/2025 8:42 AM EDT [facility] Comment: ADA Guidelines Result HgbA1c Normal : less than 5.7 % Prediabetes : 5.7 % to 6.4 % Diabetes : > 6.4 % Use with caution in patients with abnormal hemoglobin variants as the half-life of red blood cells and in vivo glycation rates are affected. EST. AVERAGE GLUCOSE 91 mg/dL 02/05/2025 8:42 AM EDT [facility] Blood Venous blood / Unknown 02/04/2025 12:08 PM EDT 02/04/2025 1:23 PM EDT us Vanessa Mccarthy MD LAB BLOOD ORDERABLES Johanna l Result [facility] [address] [place] [address], * Folate (02/04/2025 12:08 PM EDT) Only the most recent of2 resultswithin the time period is included. FOLIC ACID 12.0 >5.8 ng/mL 02/04/2025 2:25 PM EDT [facility] Blood Venous blood / Unknown 02/04/2025 12:08 PM EDT 02/04/2025 1:24 PM EDT us Vanessa Mccarthy MD LAB BLOOD ORDERABLES Johanna l Result [facility] [address] [place] [address], [place] [phone] * Ferritin (02/04/2025 12:08 PM EDT) Only the most recent of2 resultswithin the time period is included. FERRITIN 90 11 - 307 ng/mL 02/04/2025 2:25 PM EDT [facility] Blood 02/04/2025 12:0 8 PM EDT 02/04/2025 1:24 PM EDT us Vanessa Mccarthy MD LAB BLOOD ORDERABLES Johanna l Result [facility] [address] [place] [address], [place] [phone] * Vitamin B12 (02/04/2025 12:08 PM EDT) Only the most recent of2 resultswithin the time period is included. [facility] VITAMIN B12 200 180 - 914 pg/mL 02/04/2025 2:25 PM EDT [facility] Blood Venous blood / Unknown 02/04/2025 12:08 PM EDT 02/04/2025 1:24 PM EDT us Vanessa Mccarthy MD LAB BLOOD ORDERABLES Johanna l Result [facility] [address] [place] [address], [place] [phone] * Mrsa Pcr nasal swab (02/04/2025 11:47 AM EDT) Only the most recent of2 resultswithin the time period is included. [facility] MRSA PCR NASAL Negative Negative 02/04/2025 1:18 PM EDT [facility] Swab Structure of anterior naris / Unknown 02/04/2025 11:47 AM EDT 02/04/2025 11:59 AM EDT us Vanessa Mccarthy MD MICROBIOLOGY - GENERAL OR DERABLES Final Result [facility] [address] [place] [address], * Resp Pathogens Panel/SARS CoV-2 (02/04/2025 11:47 AM EDT) Only the most recent of2 resultswithin the time period is included. SARS COV 2 BY PCR Not Detected Not Detected 02/04/2025 12:56 PM EDT [facility] ADENOVIRUS Not Detected Not Detected 02/04/2025 12:56 PM EDT [facility] CORONAVIRUS 229E Not Detected Not Detected 02/04/2025 12:56 PM EDT [facility] CORONAVIRUS HKU1 Not Detected Not Detected 02/04/2025 12:56 PM EDT [facility] CORONAVIRUS NL63 Not Detected Not Detected 02/04/2025 12:56 PM EDT [facility] CORONAVIRUS OC43 Not Detected Not Detected 02/04/2025 12:56 PM EDT [facility] HUMAN METAPNEUVIRUS Not Detected Not Detected 02/04/2025 12:56 PM EDT [facility] RHINO/ENTEROVIRU S Not Detected Not Detected 02/04/2025 12:56 PM EDT [facility] INFLUENZA A Not Detected Not Detected 02/04/2025 12:56 PM EDT [facility] INFLUENZA B Not Detected Not Detected 02/04/2025 12:56 PM EDT [facility] PARAINFLUENZA 1 Not Detected Not Detected 02/04/2025 12:56 PM EDT [facility] PARAINFLUENZA 2 Not Detected Not Detected 02/04/2025 12:56 PM EDT [facility] PARAINFLUENZA 3 Not Detected Not Detected 02/04/2025 12:56 PM EDT [facility] PARAINFLUENZA 4 Not Detected Not Detected 02/04/2025 12:56 PM EDT [facility] RESP SYNCYTIAL VIRUS Not Detected Not Detected 02/04/2025 12:56 PM EDT [facility] BORD PARAPERTUSSIS Not Detected Not Detected 02/04/2025 12:56 PM EDT [facility] BORDETELLA PERTUSSIS Not Detected Not Detected 02/04/2025 12:56 PM EDT [facility] CHLAM.PNEUMONIAE Not Detected Not Detected 02/04/2025 12:56 PM EDT [facility] MYCOPLASMA PNEUMONIAE Not Detected Not Detected 02/04/2025 12:56 PM EDT [facility] Swab Nasopharyngeal structure / Unknown 02/04/2025 11:47 AM EDT 02/04/2025 11:59 AM EDT [facility] - 02/04/2025 12:56 PM EDT [...] MICROBIOLOGY - GENERAL OR DERABLES Final Result [facility] [address] [place] [address], [place] [phone] * (ABNORMAL) Lower resp/sputum culture inc gram stain: Patient acquired (02/04/2025 11:47 AM EDT) CULTURE RESULTS Few Bonnie albicans(A) 02/06/2025 1:55 PM EDT [facility] CULTURE RESULTS Rare Non-lactose fermenting gram negative bacilli(A) 02/06/2025 1:55 PM EDT [facility] Comment:Encapsulated GRAM STAIN >25 White Blood Cells/LPF(A) 02/06/2025 1:55 PM EDT [facility] GRAM STAIN 1 to 9 Squamous Epithelial Cells/LPF(A) 02/06/2025 1:55 PM EDT [facility] GRAM STAIN 0 Ciliated Epithelial Cells/LPF(A) 02/06/2025 1:55 PM EDT [facility] GRAM STAIN Moderate Gram positive cocci in pairs, chains and clusters(A) 02/06/2025 1:55 PM EDT [facility] GRAM STAIN Few Gram negative bacilli(A) 02/06/2025 1:55 PM EDT [facility] GRAM STAIN Few Yeast(A) 02/06/2025 1:55 PM EDT [facility] Aspirate Bronchial structure / Unknown 02/04/2025 11:47 AM EDT 02/04/2025 4:19 PM EDT Narrative [facility] - 02/06/2025 1:55 PM EDT Along with Many Normal Respiratory Terseita. us Vanessa Mccarthy MD MICROBIOLOGY - GENERAL OR DERABLES Final Result [facility] [address] [place] [address], [place] [phone] * Urinalysis (02/04/2025 11:43 AM EDT) COLOR Yellow Yellow, Colorless 02/04/2025 9:56 PM EDT [facility] TURBIDITY Clear Clear 02/04/2025 9:56 PM EDT [facility] SPECIFIC GRAVITY 1.032 1.003 - 1.035 02/04/2025 9:56 PM EDT [facility] NITRITE Negative Negative 02/04/2025 9:56 PM EDT [facility] PH,URINE 8.0 5.0 - 8.5 02/04/2025 9:56 PM EDT [facility] LEUKOCYTE ESTERASE Negative Negative 02/04/2025 9:56 PM EDT [facility] PROTEIN Negative Negative 02/04/2025 9:56 PM EDT [facility] KETONES (URINE) Negative Negative 9:56 PM EDT [facility] UROBILINOGEN <1.1 eu/dL <1.1 eu/dL 02/04/2025 9:56 PM EDT [facility] BILIRUBIN (URINE) Negative Negative 02/04/2025 9:56 PM EDT [facility] BLOOD/HGB Negative Negative 02/04/2025 9:56 PM EDT [facility] GLUCOSE (URINE) Negative Negative 9:56 PM EDT [facility] Urine (Urine, Indwelling Catheter) 02/04/2025 11:43 AM EDT 02/04/2025 9:24 PM EDT us Vanessa Mccarthy MD URINE ORDERABLES Final Re sult [facility] [address] [place] [address], [place] [phone] * (ABNORMAL) Urine Culture Urine, Indwelling Catheter (02/04/2025 11:43 AM EDT) Only the most recent of2 resultswithin the time period is included. CULTURE RESULTS 10,000-50,0 00 CFU/mL Bonnie albicans(A) 02/06/2025 11:52 AM EDT [facility] Urine (Urine, Indwelling Catheter) 02/04/2025 11:43 AM EDT 02/04/2025 9:25 PM EDT Vanessa Mccarthy MD MICROBIOLOGY - GENERAL OR DERABLES Final Result Performing Organization Address City/[facility]/ZIP Co de Phone Number [facility] [address] [place] [address], [place] [phone] * Bedside Glucose *Place/Obtain serum glucose if >500 per glucometer. (02/04/2025 11:24 AM EDT) Only the most recent of4 resultswithin the time period is included. Bedside Glucose (POC) 83 65 - 99 mg/dL 02/05/2025 1:18 AM EDT [facility] arterial/capilla ry 02/04/2025 11:24 AM EDT 02/05/2025 1:18 AM EDT Alejo Villalobos MD POINT OF CARE TEST ORDERABLES Fi nal Result Performing Organization Address [facility]/ZIP Co de Phone Number [facility] [address] [place] [address], [place] * CT abdomen and pelvis with contrast (02/04/2025 8:45 AM EDT) Only the most recent of2 resultswithin the time period is included. us Scanning Provider External IMG CT ORDERABLES Fin al Result * CT chest with contrast (02/04/2025 8:40 AM EDT) us Scanning Provider External IMG CT ORDERABLES Fin al Result * CT brain without contrast (02/04/2025 8:35 AM EDT) Only the most recent of2 resultswithin the time period is included. us Scanning Provider External IMG CT ORDERABLES Fin al Result * EP INVASIVE (01/28/2025 11:35 AM EDT) Narrative [facility]ON - 01/28/2025 12:14 PM EDT Successful dual-chamber pacemaker with RV lead placed at left bundle area location following that AV node ablation. Ricketts: Return back to CVU bedrest until 2:00 p.m. chest x-ray 2:00 p.m. to rule out pneumothorax, remove the dressing tomorrow morning pacemaker check in the morning. Ambulate after 2:00 p.m.. Additional antibiotic. Okay to resume warfarin no heparin. Will continue flecainide for now with current dose that she is on to maintain sinus node as long as she can along with low-dose of AV sherine agents such as beta-david. Patient will need follow-up with EP nurse practitioner for site check in 10-14 days and device interrogation 4-6 weeks. Procedure Details Indication: Patient with recurrent symptomatic paroxysmal atrial fibrillation with rapid ventral response despite of medical therapy remote history of flutter ablation now has recurrent rapid rates intermittent sinus rhythm difficult to controlled rate moderate left atrial dilatation presents today for dual-chamber pacemaker with left bundle area lead following that AV node ablation. Patient will develop complete irreversible complete heart block following the AV node ablation and hence the indication for pacemaker, will be using left bundle lead. Next para Procedure: Dual-chamber pacemaker insertion with the RV lead placed at left bundle area via left axillary venous access utilizing venography-Oliveros AV node ablation using CARTO 3D electron mapping system His bundle recording Conscious sedation Technique: After obtaining informed consent explaining risks, benefits alternatives patient was brought to the EP lab. She was prepped and draped usual sterile manner local anesthesia injected the left infraclavicular region following that 4 cm incision was made using brought to sub pressure deltopectoral fascia plane was reached. Bleeders were cauterized pocket for future pacemaker was made. Using anatomic landmarks and fluoroscopy early attempted to engage left axillary vein however was unsuccessful following that venography was performed to separate axillary accesses were obtained. Over the 1st J-wire left bundle sheath was advanced via that lead was prepped and introduced. Screw was deployed within the sheath following that using the curvature of the sheath and fluoroscopy in MCLEAN projection CS os was marked using that as anatomic landmarks lead was placed across 2 cm towards apical septal location in the RV septal area lead tip position confirmed pacing performed notched lead V1 was noted lead tip was reviewed in MCLEAN projection. With rotation with the screw out screw/lead was deployed with continuous pacing changing morphology was noted initial rise and impedance and then drop was observed and noted. Final sensing in unipolar, bipolar and impedance as well as threshold was acceptable for acute and chronic measure. Sheath was retracted and slit silk tie was placed to 100 deltopectoral fascia as an anchoring tie. V6 PT was 60 milliseconds. Over the 2nd J-wire 6 Congolese venous sheath was advanced via the right atrial lead was placed in right atrial appendage. Lead tip position confirm MCLEAN and AP projection screw was deployed. Pace, sense impedance numbers checked which were acceptable acute and chronic measure. Final P waves were 3, impedance of 510 Ohms and threshold 0.7 5.5. Sheath was peeled silk tie was placed 10 volts of pacing performed no diaphragm stim noted. Pocket was regressed irrigated antibiotic solution. New device was brought to sterile field RA and RV lead connected device header device was introduced in pocket with lead coiled post device. Silk tie was placed on device header under deltopectoral fascia as an anchoring tie. Surgiflo placed in the pocket for hemostasis. Incision was closed in 3 layers deep, middle superficial. Deep and middle layers closed in 2 0 Vicryl contains fashion subcuticular layer closed in 4 0 Vicryl contains fashion Steri-Strips were applied antibiotic applied over the Steri- Strips following that Telfa Tegaderm dressing was applied. Device is programmed DDDR 60 to 130 beats per minute in unipolar fashion 5 at 1 milliseconds until the 1st check. Most which is VVIR 70 beats per minute. Following this right common femoral vein region was approach using local anesthetic that was injected the right common femoral vein region and ultrasound right common femoral vein was engaged and a J-wire was placed 1st 8 Congolese sheath was placed that was exchanged for Agilis with the long J-wire. Next para Baseline AH was 72 and HV of 40 [address] the Agilis sheath ST SF D curve catheter was placed, respiratory gating, calibration and 0 was obtained. 3D electron map of the content but AV node and his bundle was done. With a power of 35 w radiofrequency energy was delivered achieved heart block with the 1st RF lesion 2nd RF lesion was delivered. We waited for more than 15 minutes checking the conduction every 5 minutes to see if there is any escape none was noted patient remained paced at VVI 40. At this point procedure was concluded catheters and sheaths were removed with manual pressure was applied for hemostasis. Please see attached procedure log report regarding lead and device who numbers as model numbers. Device is programmed DDDR 60-130 beats per minute with a backup mode switch of VVIR 70 beats per minute. Output in the RV/left bundle lead is 5 at 1 In unipolar fashion until the 1st check in 4-6 weeks. Following the based on the threshold programming will be performed /adjusted. MODERATE SEDATION FOR PROCEDURE: Moderate sedation was given during this procedure. The total dose of fentanyl was 25 mcg and the total dose of midazolam was 1 mg. I supervised and directed the trained healthcare provider who assisted in monitoring the patient's hemodynamic and respiratory status and response to these medications. Please see the full detailed procedure report generated by the electrophysiology laboratory staff for exact procedure start and stop times. Patient tolerated moderate sedation quite well. There were no complications regarding this sedation aspect of the procedure. Complication: None Blood loss: 5-10 cc us Diego Mars [employer] CV ELECTROPHYSIOLOGY O RDERABLES Final Result AARON * Echo limited W/O contrast (01/25/2025 2:12 PM EDT) FS 34 28 - 44 % XCELERA LVIDd 3.50 3.90 - 5.42 cm XCELERA LVIDs 2.30 2.32 - 3.51 cm XCELERA IVS 1.30 0.6 - 1.1 cm XCELERA PW 1.30 0.6 - 1.1 cm XCELERA LV RWT 2D 74.29 XCELERA Left Ventricle Mass 153.72957 [id number] 7 g XCELERA Interventricular Septum Diastolic Thickness by 2D 13 cm XCELERA ZLVIDS -1.70 XCELERA ZLVIDD -2.73 XCELERA Anatomical Region Laterality Modality Chest N/A Ultrasound Narrative 01/25/2025 3:35 PM EDT Left Ventricle: Left ventricle is small. There is moderate increased wall thickness/hypertrophy. Systolic function is normal with an ejection fraction of 60-65%. Left Ventricle Left ventricle is small. There is moderate increased wall thickness/hypertrophy. Systolic function is normal with an ejection fraction of 60-65%. Prominent chordae noted. IVC/SVC IVC appears normal. There is normal collapse with deep inspiration. Pericardium There is a trivial pericardial effusion. Study Details A limited echo was performed using limited 2D. During the study the apical, parasternal and subcostal views were captured. us Valentin Hwang MD ECHO ORDERABLES [facility] al Result * EEG VIDEO MONITORING (01/25/2025 1:30 PM EDT) Narrative MANUALLY TRANSCRIBED RESULTS - 01/25/2025 2:44 PM EDT Images from the original result were not included. [place] Video Snf EEG Report EEG Service Date: 01/25/2025 07:00 until 01/25/2025 13:05. Day 2 of recording Date of Report: 01/25/2025 History: 64 year old woman with myoclonus, concern for seizures Medications: Precedex, Gabapentin, Zofran Technique: This EEG was acquired with electrodes placed according to the 10-20 electrode placement system. A single EKG channel was recorded for cardiac rhythm monitoring. Video was recorded simultaneously. The quality of recording was good. The entire EEG study along with video for selected events was reviewed. EEG Classification: Abnormal III State of Consciousness: Stupor EEG Findings: 1.) Dominant Rhythm: No PDR was seen in awake states 2.) Background: The background was slow, without a PDR. Reactivity to external stimuli was appreciated. No progressive sleep stages were seen. 3.) There is asymmetry, decreased amplitude, background rhythm, right hemisphere, seen throughout the recording. 4.) Occasional EMG artifact was seen, without associated movements on camera, without EEG correlate. One reported event at 08:52 did not show clear changes on video, and did not have any associated EEG changes. 5.) There is continuous slow, generalized, underlying delta > theta waves, seen throughout the recording. Overlying triphasic wave like morphologies were seen throughout. 6.) HR 48-50 BPM, irregular Impression: This vEEG is indicative of right hemispheric dysfunction and severe diffuse encephalopathy. EMG artifact did not have EEG correlate. A reported patient event did not have EEG correlate. No epileptiform discharges or seizures were seen. In comparison with yesterday's recording, there is no significant change. 10 uV Sensitivity, reported event Regina Sow MD Machine Rep[employer] [place] [facility] Rob Sotelo MD NEUROLOGY ORDERABLES Final Resul t Performing Organization Address City/[facility] Co de Phone Number MANUALLY TRANSCRIBED RESULTS * DISCONTINUE IN PROCESS EEG TESTING (01/25/2025 1:30 PM EDT) Aimee Jimenez MD NEUROLOGY ORDERABLES Final Result * Potassium, urine, random (01/25/2025 7:43 AM EDT) URINE POTASSIUM,RAND OM 82.8 mmol/L 01/25/2025 10:47 AM EDT [facility] Urine 01/25/2025 7:43 AM EDT 01/25/2025 10:16 AM EDT Deja Coffey MD URINE ORDERABLES Final Resul t Performing Organization Address [facility] de Phone Number [facility] [address] [place] [address], [place] [phone] * Chloride, urine, random (01/25/2025 7:43 AM EDT) URINE CHLORIDE,RANDO M <15 mmol/L 01/25/2025 10:47 AM EDT [facility] Urine 01/25/2025 7:43 AM EDT 01/25/2025 10:16 AM EDT Deja Coffey MD URINE ORDERABLES Final Resul t Performing Organization Address [facility] Co de Phone Number [facility] [address] [place] [address], [place] [phone] * EEG VIDEO MONITORING IN PROGRESS (01/25/2025 6:00 AM EDT) Narrative MANUALLY TRANSCRIBED RESULTS - 01/25/2025 8:12 AM EDT Images from the original result were not included. [place] Video Safety And Security Manager EEG Report EEG Service Date: 01/25/2025 04:51 until 01/25/2025 07:00. Day 1 of recording Date of Report: 01/25/2025 History: 64 year old woman with myoclonus, concern for seizures Medications: Precedex, Gabapentin, Zofran Technique: This EEG was acquired with electrodes placed according to the 10-20 electrode placement system. A single EKG channel was recorded for cardiac rhythm monitoring. Video was recorded simultaneously. The quality of recording was good. The entire EEG study along with video for selected events was reviewed. EEG Classification: Abnormal III State of Consciousness: Comatose EEG Findings: 1.) Dominant Rhythm: No PDR was seen 2.) Background: The background was slow, without a PDR. Reactivity to external stimuli was appreciated. No progressive sleep stages were seen. 3.) There is asymmetry, decreased amplitude, background rhythm, right hemisphere, seen throughout the recording. 4.) Occasional EMG artifact was seen, without associated movements on camera, without EEG correlate. 5.) There is continuous slow, generalized, underlying delta > theta waves, seen throughout the recording. 6.) HR 48-50 BPM, irregular Impression: This EEG is indicative of right hemispheric dysfunction and severe diffuse encephalopathy. EMG artifact did not have EEG correlate. No epileptiform discharges or seizures were seen. Regina Sow MD [employer] [place] [facility] us Rob Sotelo MD NEUROLOGY ORDERABLES Final Resul t MANUALLY TRANSCRIBED RESULTS * EEG (01/25/2025 4:48 AM EDT) Narrative MANUALLY TRANSCRIBED RESULTS - 01/25/2025 8:07 AM EDT Images from the original result were not included. [place] Routine EEG Report Length of Study: 28 minutes EEG Service Date: 01/25/2025 History: 64 year old woman with myoclonus, concern for seizures Medications: Precedex, Gabapentin, Zofran Technique: This EEG was acquired with electrodes placed according to the 10-20 electrode placement system. A single EKG channel was recorded for cardiac rhythm monitoring. The quality of recording was good. EEG Classification: Abnormal III State of Consciousness: Comatose EEG Findings: 1.) Dominant Rhythm: No PDR was seen 2.) Background: The background was slow, without a PDR. Reactivity to external stimuli was appreciated. No progressive sleep stages were seen. 3.) Activating procedures: Hyperventilation was not performed. Photic stimulation was performed and did produce sharply contoured discharges at 3 Hz and 5 Hz frequencies, consistent with a photoparoxysmal response. 4.) There is asymmetry, decreased amplitude, background rhythm, right hemisphere, seen throughout the recording. 5.) Occasional EMG artifact was seen from reported body twitching (the camera was not on the patient at this time), without EEG correlate. 6.) There is continuous slow, generalized, underlying delta > theta waves, seen throughout the recording. 7.) HR 48-50 BPM, irregular Impression: This EEG is indicative of right hemispheric dysfunction and severe diffuse encephalopathy. A photoparoxysmal response was seen with photic stimulation, indicating possible generalized epileptogenicity. EMG artifact from reported twitching did not have EEG correlate. 7 uV Sensitivity, muscle twitch 7 uV Sensitivity, photoparoxysmal response Regina Sow MD [employer] [place] [facility] Rob Sotelo MD NEUROLOGY ORDERABLES Final Resul t MANUALLY TRANSCRIBED RESULTS * Salicylate level (01/25/2025 2:02 AM EDT) SALICYLATE <2.5 2.0 - 25.0 mg/dL 01/25/2025 7:52 AM EDT [facility] Blood 01/25/2025 2:02 AM EDT 01/25/2025 2:13 AM EDT Narrative [facility] - 01/25/2025 7:52 AM EDT Reference ranges are for therapeutic limits. Vanessa Mccarthy MD LAB BLOOD ORDERABLES Johanna de los santos Result [facility] [address] [place] [address], [place] [phone] * CT angiogram chest (01/25/2025 1:21 AM EDT) Only the most recent of2 resultswithin the time period is included. Anatomical Region Laterality Modality Lung, Body, Chest, Vascular, Body Covera N/A Computed Tomography 01/25/2025 2:43 AM EDT Narrative 01/25/2025 2:48 AM EDT Clinical history: Respiratory distress Technique: CT angiography of the pulmonary arteries was performed following the intravenous administration of contrast material. Multidetector CT angiogram performed through the pulmonary arteries without complication, including source images and maximum intensity projection 3-D images displayed and reviewed on a PACS workstation by the radiologist. Automated exposure control was utilized. Comparison: 01/14/2025 Findings: The pulmonary arteries are well opacified and show no intraluminal filling defects to suggest pulmonary embolism. There is a right-sided pleural effusion is new since the previous examination. There are advanced emphysematous changes seen throughout both lung hastings. The lung hastings are otherwise clear for an active process. No hilar or mediastinal mass or adenopathy are seen. There are scattered coronary artery calcifications. Impression: * No evidence of pulmonary embolism * Right-sided pleural effusion, new since the previous examination * Advanced emphysematous changes. All CT scans at this facility use dose modulation, iterative reconstruction, and/or weight based dosing when appropriate to reduce radiation dose to as low as reasonably achievable Finalized by Cirilo العلي MD on 01/25/2025 2:48 AM Procedure Note Cirilo العلي MD - 01/25/2025 Clinical history: Respiratory distress Technique: CT angiography of the pulmonary arteries was performedfollowing the intravenous administration of contrast material.Multidetector CT angiogram performed through the pulmonary arterieswithout complication, including source images and maximum intensityprojection 3-D images displayed and reviewed on a PACS workstation by the radiologist. Automated exposurecontrol was utilized. Comparison: 01/14/2025 Findings: The pulmonary arteries are well opacified and show nointraluminal filling defects to suggest pulmonary embolism. There is a right-sided pleural effusion is new since the previousexamination. There are advanced emphysematous changes seen throughout bothlung hastings. The lung hastings are otherwise clear for an active process. Nohilar or mediastinal mass or adenopathy are seen. There are scatteredcoronary artery calcifications. Impression: * No evidence of pulmonary embolism * Right-sided pleural effusion, new since the previous examination * Advanced emphysematous changes. All CT scans at this facility use dose modulation, iterativereconstruction, and/or weight based dosing when appropriate to reduceradiation dose to as low as reasonably achievable Finalized by Cirilo العلي MD on 01/25/2025 2:48 AM us Vanessa Mccarthy MD IMG CT ORDERABLES Final R esult * Procalcitonin (01/24/2025 7:18 PM EDT) Only the most recent of2 resultswithin the time period is included. Pathologist [facility] PROCALCITONIN <0.05 <0.05 ng/mL 01/24/2025 8:04 PM EDT [facility] Blood Venous blood / Unknown 01/24/2025 7:18 PM EDT 01/24/2025 7:18 PM EDT Narrative [facility] - 01/24/2025 8:04 PM EDT <0.50 ng/mL - Low risk of severe sepsis and/or septic shock. <2.00 ng/mL - Recommend retesting within 6-24 hours. >2.00 ng/mL - High risk of sepsis and/or septic shock. us Vanessa Mccarthy MD LAB BLOOD ORDERABLES Johanna l Result [facility] [address] [place] [address], [place] [phone] * Ammonia (01/24/2025 7:18 PM EDT) AMMONIA 49 18 - 72 umol/L 01/24/2025 8:49 PM EDT [facility] Blood Venous blood / Unknown 01/24/2025 7:18 PM EDT 01/24/2025 7:18 PM EDT us Vanessa Mccarthy MD LAB BLOOD ORDERABLES Johanna l Result [facility] [address] [place] [address], [place] [phone] * X-ray abdomen NG Tube placement 1 view (01/24/2025 6:38 PM EDT) Anatomical Region Laterality Modality Body, Abdomen N/A Computed Radiogr aphy 01/24/2025 6:57 PM EDT Narrative 01/24/2025 6:58 PM EDT XR ABD NG TUBE PLACEMENT 1 VIEW Clinical history:NG tube placement Comparison: 05/31/2022. Impression: Enteric catheter tip in the region of the mid stomach. Finalized by Manuel Fung MD on 01/24/2025 6:58 PM Procedure Note Manuel Fung MD - 01/24/2025 XR ABD NG TUBE PLACEMENT 1 VIEW Clinical history:NG tube placement Comparison: 05/31/2022. Impression: Enteric catheter tip in the region of the mid stomach. Finalized by Manuel Fung MD on 01/24/2025 6:58 PM Vanessa Mccarthy MD IMG DIAGNOSTIC IMAGING OR DERABLES Final Result * (ABNORMAL) POCT ABG with NA, K, GLU, ICA and HCT (01/24/2025 6:33 PM EDT) POC Sodium 135 134 - 146 mmol/L 01/24/2025 6:37 PM EDT [facility] POC Potassium 4.2 3.5 - 5.0 mmol/L 01/24/2025 6:37 PM EDT [facility] POC Glucose 220(H) 65 - 99 mg/dL 01/24/2025 6:37 PM EDT [facility] POC Hematocrit 28(L) 35 - 47 % 01/24/2025 6:37 PM T [facility] POC Ionized Calcium 4.4(L) 4.5 - 5.3 mg/dL 01/24/2025 6:37 PM T [facility] Sample type ARTERIAL 01/24/2025 6:37 PM EDT [facility] pH, Arterial 7.450 7.350 - 7.450 01/24/2025 6:37 PM EDT [facility] pCO2, Arterial 68.2(H) 35.0 - 45.0 mmHg 01/24/2025 6:37 PM EDT [facility] PO2, Arterial 83 80 - 100 mmHg 01/24/2025 6:37 PM T [facility] Base, Excess 21.0(H) 0.0 - 2.0 mmol/L 01/24/2025 6:37 PM T [facility] HCO3, Arterial 47.4(H) 22.0 - 26.0 mmol/L 01/24/2025 6:37 PM T [facility] %O2 Saturation, Arterial 96.0 >90.0 % 01/24/2025 6:37 PM T [facility] Diego's test Pass 01/24/2025 6:37 PM [facility] SPO2 96 % 01/24/2025 6:37 PM T [facility] Sample site R Brach 01/24/2025 6:37 PM T [facility] Insp. O2 conc. 40 % 01/24/2025 6:37 PM T [facility] Source Of Oxygen Vent 01/24/2025 6:37 PM T [facility] arterial 01/24/2025 6:33 PM EDT 01/24/2025 6:37 PM EDT us Javi Villavicencio MD POINT OF CARE TEST ORDERABL ES Final Result [facility] [address] [place] [address], [place] * Thyroid antibodies includes TPO and TGAB (01/18/2025 5:59 AM EDT) THYROPEROXIDASE AB <1 <10 IU/mL 2024 7:46 AM EDT [facility] THYROGLOBULIN AB <1 <4 IU/mL 01/19/20 7:46 AM EDT [facility] Blood Venous blood / Unknown 01/18/2025 5:59 AM EDT 01/18/2025 5:59 AM EDT us Nohelia Edwards [employer] LAB BLOOD ORDERABLES Johanna de los santos Result [facility] [address] [place] [address], [place] [phone] * (ABNORMAL) Blood gas, venous (01/17/2025 7:33 PM EDT) Sample type VENOUS 01/17/2025 7:51 PM EDT [facility] pH, Venous 7.294(L) 7.320 - 7.420 01/17/2025 7:51 PM EDT [facility] pCO2, Venous 92.0(H) 35.0 - 50.0 mmHg 01/17/2025 7:51 PM EDT [facility] pO2, Venous 29(L) 30 - 50 mmHg 01/17/2025 7:51 PM EDT [facility] Base, Excess 15.0(H) 0.0 - 2.0 mmol/L 01/17/2025 7:51 PM EDT [facility] HCO3, Venous 44.6 mmol/L 01/17/2025 7:51 PM EDT [facility] %O2 Saturation, Venous 44.0 % 01/17/2025 7:51 PM EDT [facility] Diego's test N/A 01/17/2025 7:51 PM EDT [facility] SPO2 96 % 01/17/2025 7:51 PM EDT [facility] Sample site R Brach 01/17/2025 7:51 PM EDT [facility] Insp. O2 conc. 35 % 01/17/2025 7:51 PM EDT [facility] Source Of Oxygen NPPV 01/17/2025 7:51 PM EDT [facility] venous Venous blood / Unknown 01/17/2025 7:33 PM EDT 01/17/2025 7:51 PM EDT us Theron Rajni Botello MD LAB BLOOD ORDERABLES Fi nal Result [facility] [address] [place] [address], [place] * Echo complete W/O contrast (01/15/2025 12:50 PM EDT) LV Systolic Volume 22.90 mL XCELERA EF 56 % XCELERA FS 43 28 - 44 % XCELERA LV Diastolic Volume 52.10 mL XCELERA LVIDd 4.20 3.77 - 5.23 cm XCELERA LVIDs 2.40 2.24 - 3.39 cm XCELERA IVS 1.20 0.6 - 1.1 cm XCELERA PW 1.30 0.6 - 1.1 cm XCELERA TDI 10.30 cm/s XCELERA MV TDI E' (medial) 7.51 cm/s XCELERA LA Volume Index 42.1 mL/m2 XCELERA E/A ratio 1.07 XCELERA E wave deceleration time 154.00 msec XCELERA MV Peak E Carissa 113.00 cm/s XCELERA MV Peak A Carissa 106.00 cm/s XCELERA LA size 4.60 cm XCELERA Aortic root 3.00 cm XCELERA LA volume 62.90 cm3 XCELERA TAPSE 2.64 cm XCELERA AV peak carissa 170.00 cm/s XCELERA LVOT peak carissa 1.37 m/s XCELERA AV VTI 30.80 cm XCELERA LVOT peak VTI 25.90 cm XCELERA AV mean gradient 6.00 mmHg XCELERA AV peak gradient 11.56 mmHg XCELERA MV pressure 1/2 time 45.00 ms XCELERA MV valve area p 1/2 method 4.89 cm2 XCELERA TR Peak Carissa 2.7 m/s XCELERA TR peak gradient 28.09 mmHg XCELERA LV ESV A2C 68.30 mL XCELERA LV ESV A4C 58.20 mL XCELERA LV RWT 2D 61.90 XCELERA Echo EF Estimated 56 % XCELERA AV Velocity Ratio 0.84 XCELERA Left Ventricle Mass 189.24384 [id number] 2 g XCELERA Interventricular Septum Diastolic Thickness by 2D 12 cm XCELERA RA area 11.0 cm2 XCELERA ZLVIDS -1.10 XCELERA ZLVIDD -0.56 XCELERA Energy loss index 10.67 XCELERA Anatomical Region Laterality Modality Chest N/A Ultrasound Narrative 01/15/2025 5:34 PM EDT Left Ventricle: Left ventricle appears normal in size. Systolic function is normal with an ejection fraction of 55-60%. Left Ventricle Left ventricle appears normal in size. There is mild concentric increased wall thickness/hypertrophy. Systolic function is normal with an ejection fraction of 55-60%. No segmental wall motion abnormalities. Lateral E' is 10.30 cm/s. Medial E' is 7.51 cm/s. Right Ventricle Right ventricular size appears normal. Systolic function is normal. Left Atrium Left atrium volume index is moderately increased. The left atrial volume index is 42.1 mL/m2. Right Atrium Right atrium is normal in size. The right atrial area is 11.0 cm2. IVC/SVC IVC appears normal. Mitral Valve Mitral valve structure is normal. There is trace regurgitation. There is no evidence of mitral valve stenosis. Tricuspid Valve Tricuspid valve appears to be normal. There is trace regurgitation. Aortic Valve The aortic valve is trileaflet. There is no regurgitation or stenosis. Pulmonic Valve Pulmonic valve structure is grossly normal. There is trace regurgitation. Ascending Aorta The aortic root is normal in size. Pericardium There is no pericardial effusion. Study Details A complete echo was performed using complete 2D, color flow Doppler and spectral Doppler. BP: 151/80 Wall Scoring Baseline Score Index: 1.12 The following segments are hypokinetic: basal inferior and basal inferolateral. All other segments are normal. us Fawn R Elio [employer] CV ECHO ORDERABLES Fi nal Result * (ABNORMAL) Platelet count (01/15/2025 7:13 AM EDT) Platelet Count 148(L) 150 - 450 X10E9/L 01/15/2025 7:32 AM EDT [facility] MPV 8.4 7 - 12 fL 01/15/2025 7:32 AM EDT [facility] Blood Venous blood / Unknown 01/15/2025 7:13 AM EDT 01/15/2025 7:23 AM EDT Ting Vuong [employer] LAB BLOOD ORDERABLES Final Result Performing Organization Address City/[facility]/ZIP Co de Phone Number [facility] [address] [place] [address], [place] [phone] * (ABNORMAL) Hemoglobin (01/15/2025 7:13 AM EDT) Only the most recent of2 resultswithin the time period is included. Pathologist [facility] Hemoglobin 8.4(L) 11.7 - 15.5 g/dL 01/15/2025 7:32 AM EDT [facility] Blood Venous blood / Unknown 01/15/2025 7:13 AM EDT 01/15/2025 7:23 AM EDT Ting Vuong [employer] LAB BLOOD ORDERABLES Final Result [facility] [address] [place] [address], [place] [phone] * T3, free (01/15/2025 7:13 AM EDT) FREE T3 3.43 2.50 - 3.90 pg/mL 01/15/2025 6:14 PM EDT [facility] Blood 01/15/2025 7:13 AM EDT 01/15/2025 7:23 AM EDT us Shireen DOMINGUEZ LAB BLOOD ORDERABLE S Final Result [facility] [address] [place] [address], [place] [phone] * (ABNORMAL) Troponin I, High Sensitivity 3 Hour (01/14/2025 6:29 PM EDT) Pathologist [facility] TROPONIN I, HIGH SENSITIVITY 876(HH) <16 ng/L 01/14/2025 7:08 PM EDT [facility] Blood Venous blood / Unknown 01/14/2025 6:29 PM EDT 01/14/2025 6:31 PM EDT Narrative [facility] - 01/14/2025 7:08 PM EDT Elevations of hs-Troponin may be due to causes other than myocardial ischemia. Recommend serial hs-Troponin testing be performed. For the initial evaluation and management of chest pain patients, refer to the algorithms linked below. Emergency Patient: [email or web address] Inpatient: [email or web address] us Luis A Ingram MD LAB BLOOD ORDERABLES Final Result [facility] [address] [place] [address], [place] * (ABNORMAL) Basic Metabolic Panel (01/14/2025 2:43 PM EDT) [facility] SODIUM 143 134 - 146 mmol/L 01/14/2025 3:00 PM EDT [facility] POTASSIUM 3.5 3.5 - 5.0 mmol/L 01/14/2025 3:00 PM EDT [facility] CHLORIDE 87(L) 98 - 109 mmol/L 01/14/2025 3:00 PM EDT [facility] CARBON DIOXIDE 46(H) 22 - 32 mmol/L 01/14/2025 3:00 PM EDT [facility] ANION GAP 10 5 - 15 mmol/L 01/14/2025 3:00 PM EDT [facility] BLOOD UREA NITROGEN 17 5 - 27 mg/dL 01/14/2025 3:00 PM EDT [facility] CREATININE 0.64 0.40 - 1.00 mg/dL 01/14/2025 3:00 PM EDT [facility] Comment:METHOD TRACEABLE TO IDMS STANDARD GLUCOSE 165(H) 65 - 99 mg/dL 01/14/2025 3:00 PM EDT [facility] CALCIUM 9.1 8.5 - 10.5 mg/dL 01/14/2025 3:00 PM EDT [facility] EGFR Non-Race Dependent >90 >=60 ml/min/1.7 3sq.m 01/14/2025 3:00 PM EDT [facility] Comment: eGFR not reported due to non-numeric value for Creatinine. Reported eGFR is based on the CKD-EPI 2020 equation that does not use a race coefficient. Blood Venous blood / Unknown Line / Unknown 01/14/2025 2:43 PM EDT 01/14/2025 2:45 PM EDT us Brit Billy MD LAB BLOOD ORDERABLES Final Re sult [facility] [address] [place] [address], * Critical Care (01/14/2025 2:27 PM EDT) Narrative Brit Billy MD - 01/14/2025 2:27 PM EDT Brit Billy MD 01/19/2025 8:24 AM Critical Care Performed by: Brit Billy MD Authorized by: Brit Billy MD Critical care provider statement: Critical care time (minutes): 30 Critical care was necessary to treat or prevent imminent or life-threatening deterioration of the following conditions: Cardiac failure Critical care was time spent personally by me on the following activities: Re-evaluation of patient's condition Brit Billy MD PROCEDURE/MINOR SURGICAL ORDE RABLES Final Result * (ABNORMAL) POCT Protime / INR (12/10/2024) INR 2.4(A) 0.8 - 1.2 MANUALLY TRANSCRIBED RESULTS 12/10/2024 [facility] Medication Management POINT O F CARE TEST ORDERABLES Final Result MANUALLY TRANSCRIBED RESULTS * (ABNORMAL) Hematocrit (12/02/2024 10:25 PM EDT) Hematocrit 32.6(L) 35 - 47 % 12/02/2024 10:41 PM EDT [facility] Blood Blood / Unknown 12/02/2024 1 0:25 PM EDT 12/02/2024 10:30 PM EDT Kiley Bettencourt MD LAB BLOOD ORDERABLES Final Result [address] [place] [address] from Last 3 Months Insurance [employer] MEDICARE Advance Directives Documents on File Type Date Recorded Patient Metaphysicist Expl anation Durable Power of Bowstring Maker 02/02/2025 3:56 PM * Full Code (Latest Code Status on File) Date Activated Date Inactivated Comments 02/04/2025 11:10 AM 02/12/2025 6:19 PM * Full Code Date Activated Date Inactivated Comments 01/15/2025 1:22 AM 01/30/2025 2:33 PM * Full Code Date Activated Date Inactivated Comments 09/02/2022 8:29 PM 09/05/2022 4:40 PM * Full Code Date Activated Date Inactivated Comments 06/25/2022 1:52 AM 06/27/2022 4:55 PM * Full Code Date Activated Date Inactivated Comments 06/17/2022 12:26 PM 06/19/2022 9:41 PM Care Teams Religious Education Coordinator Relationship Specialty Start Date End Date Char Luu MD [address] [place] [phone] PCP - General Pediatrics 12/02/24
--- OUTSIDE RECORDS SUMMARY | 2025-02-15 10:23 | XMS_ITS ---
Author Organization [facility] Care Team Providers Care Wedding Designer Name Role Phone Lester Pablo Unavailable Unavailable Filipe Serrano Unavailable Unavailable Allergies and adverse reactions Code CodeSystem Substance Reaction Severity StartDate Concern Status Codiene, nickel, zadagrain Unknown Unkno wn active Care Team Name Role Address Phone Organization Dates Lester Pablo PCP [address], [place], [address], [place] (Office): : [facility] 01/16/2012 - 02/18/2012 Filipe Serrano [address], [place], [address], [place] (Office): [facility] 01/16/2012 - 02/18/2012 Immunizations Immunization Status Vaccine Details Vaccine Code CodeSystem Date Notes Influenza new Influenza, high-dose, split virus, quadrivalent, injectable, preservative free 197 CVX created date: 01/22/2012 consent date: 01/22/2012 TB 2 Step Mantoux Skin Test completed tuberculin skin test; unspecified formulation Given Right Forearm Step 1 of Multi-step with next step required 98 CVX created date: 01/21/2012 consent date: 01/21/2012 administere d date: 01/17/2012 PPSV 23 cancelled pneumococcal polysaccharide vaccine, 23 valent 33 CVX created date: 01/22/2012 consent date: 01/22/2012 Mental Status Section Date Assessment Total Score Description 02/18/2012 BIMS 15 cognitively int act PHQ-9 11 moderate depres marbin 01/20/2012 BIMS 15 cognitively int act PHQ-9 19 moderately lori re depression Reason for Referral No Reasons for Referral Entered Social History Social History Observation Description Start Date End Date Code Code System Current Smoking Status Tobacco smoking consumption unknown 557020970 SNOMED CT Sex Assigned At Female 1960 73448-0 [facility] Gender Identity Vital Signs Code Code System Vitals Name Values and Units Timing Information 13277-2 [facility] Weight Hpwwf=443.0 Units=Lbs 10/2011 9279-1 [facility] Respiratory Rate Value=20.0 Units=/m in 02/09/2012 8462-4 [facility] Blood Pressure-Diastolic Value=73 Un its=mmHg 02/09/2012 8480-6 [facility] Blood Pressure-Systolic Abpaf=066 Un its=mmHg 02/09/2012 8867-4 [facility] Heart rate Value=83.0 Units=/min 51942-8 [facility] O2 % dC Oximetry Value=95.0 Units= % 02/08/2012 8310-5 [facility] Body Temperature Value=97.1 Units= F 01/25/2012 8302-2 [facility] Height Value=64.8 Units=Inches 01/17/2012
--- OUTSIDE RECORDS SUMMARY | 2025-02-15 10:25 | XMS_ITS | Encounter Summary ---
Author Organization [employer] tem Address [id number] [address] [place] [address] Care Team Providers Care Identification Printing Machine Setter Name Role Phone Char Luu MD Primary Care Provider + Reason for Visit * Reason Onset Date Comments Patient Information 01/27/2025 Encounter Details Date Type Department Care Team (Late st Contact Info) Description 01/27/2025 [facility] [address] [place] [address] Oseas Carson CMA Patient Information Social History Tobacco Use Types Packs/Day Years Used Date Smoking Tobacco: Former Smokeless Tobacco: Never Alcohol Use Standard Drinks/Week Comments Not Currently 0 (1 standard drink = 0.6 oz pur e alcohol) [facility] Utilities Answer Date Recorded In the past 12 months has [employer], gas, oil, or water [employer] threatened to shut off services in your home? No 01/15/2025 Social Connection and Isolation Panel [NHANES] A nswer Date Recorded In a typical week, how many times do you talk on the phone with family, friends, or neighbors? Three times a week 06/25/2022 How often do you get togethe r with friends or relatives? Never 06/25/2022 How often do you attend chur ch or jew services? Never 06/25/2022 Do you belong to any clubs o r organizations such as samaritan groups, unions, fraternal or athletic groups, or [...] Answer Date Recorded Total Score 18 01/15/2025 [facility] of Occupat ional Health - Occupational Stress [...] medical appointments or from getting medications? No 11/2024 In the past 12 months, has l ack of transportation kept you from meetings, work, or from getting things needed for daily living? No 01/15/2025 Housing Instability Answer Date Recorde d Are you worried or concerned that in the next two months you may not have stable housing that you own, rent or stay in as a part of a household? No 01/15/2025 Childcare Answer Date Recorded Do problems getting child ca re make it difficult for you to work or study? No 06/25/2022 Employment Answer Date Recorded Do you need help finding a [facility] career center and/or a training program? No 06/25/2022 Hunger Screening Answer Date Recorded Within the past 12 months we worried whether our food would run out before we got money to buy more. Never True 01/15/2025 Within the past 12 months th e food we bought just didn't last and we didn't have money to get more. Never True 01/15/2025 Purpose - Life Answer Date Recorded I have a purpose and direction in my life. Somew hat Disagree 06/25/2022 Comments No Sex and Gender Information Value Date Recorded Sex Assigned at Not on file Legal Sex Female 11:29 AM EDT Gender Identity Not on file Sexual Orientation Not on file documented as of this encounter Miscellaneous Notes * Telephone Encounter - Oseas Carson CMA - 01/27/2025 2:29 PM EDT Resident [facility] called into office to inform provider patient has been transitioned from ICU to general care. Resident states patient has transitioned from room A711 to room A518 . documented in this encounter Plan of Treatment Upcoming Encounters Date Type Department Care Team (Late st Contact Info) Description 03/01/2025 2:00 PM EDT Clinical Support [facility] Cardiology [address] [place] [address] documented as of this encounter Visit Diagnoses Not on filedocumented in this encounter Additional Health Concerns Assessment Noted Time PHQ-9 Depression Total Score: 18 025 11:23 AM EDT documented as of this encounter Care Teams Identification Printing Machine Setter Relationship Specialty Start Date End Date Char Luu MD [address] [place] [phone] PCP - General Pediatrics 12/02/24 documented as of this encounter
--- OUTSIDE RECORDS SUMMARY | 2025-02-15 10:25 | XMS_ITS | Encounter Summary ---
Author Organization [employer] Address [facility] [id number] [address] [place] [address] Care Team Providers Care Crystal Cutter Name Role Phone Char Luu MD Primary Care Provider + Encounter Details Date Type Department Care Team (Late st Contact Info) Description 02/07/2025 Orders Only [facility] [address] [place] [phone] Transcribe, Orders Support User Pain (Primary Dx) Social History Tobacco Use Types Packs/Day Years Used Date Smoking Tobacco: Former Smokeless Tobacco: Never Alcohol Use Standard Drinks/Week Comments Not Currently 0 (1 standard drink = 0.6 oz pur e alcohol) [facility] Utilities Answer Date Recorded In the past 12 months has [employer], gas, oil, or water company threatened to [...] often do you attend chur ch or samaritan services? Never 06/25/2022 Do you belong to [...] Answer Date Recorded Total Score 18 01/15/2025 [facility] of Occupat ional Health - Occupational Stress [...] Recorded Do you need help finding a [facility] career center and/or a training program? No [...] documented as of this encounter Functional Status documented as of this encounter Mental Status * Question Answer Entry Date Author Overall Cognitive Status X 02/08/2025 2:25 PM EDT Lisa Hernandez OT/Jean Claude documented in this encounter Plan of Treatment Upcoming Encounters Date Type Department Care Team (Late st Contact Info) Description 03/01/2025 2:00 PM EDT Clinical Support [facility] Card[facility] [address] [place] [address] documented as of this encounter Goals Goal Patient Goal Type Associated Problems Recent Progress Patient-Stated? Author SNF General Yes Olena Paris, RN Note: Evaluation of progress towards goal: Progress to a safe discharge documented as of this encounter Results * CT abdomen and pelvis with contrast (02/04/2025 8:45 AM EDT) us Scanning Provider External IMG CT ORDERABLES Fin al Result * CT chest with contrast (02/04/2025 8:40 AM EDT) us Scanning Provider External IMG CT ORDERABLES Fin al Result * CT brain without contrast (02/04/2025 8:35 AM EDT) us Scanning Provider External IMG CT ORDERABLES Fin al Result * X-ray chest 1 view (02/04/2025 8:00 AM EDT) us Scanning Provider External IMG DIAGNOSTIC IMAGIN G ORDERABLES Final Result documented in this encounter Visit Diagnoses Diagnosis Pain- Primary Generalized pain documented in this encounter Additional Health Concerns Assessment Noted Time PHQ-9 Depression Total Score: 18 025 11:23 AM EDT documented as of this encounter Care Teams Crystal Cutter Relationship Specialty Start Date End Date Char Luu MD [address] [place] [address] PCP - General Pediatrics 12/02/24 documented as of this encounter
--- OUTSIDE RECORDS SUMMARY | 2025-02-15 10:25 | XMS_ITS | Encounter Summary ---
Author Organization [employer] Address [id number] [address] [place] [address] Care Team Providers Care Automatic Pattern Edger Name Role Phone Char Luu MD Primary Care Provider + Reason for Referral * Diagnostic Imaging (Routine) - Closed Specialty Diagnoses / Procedures Referred By Estrella de anda Referred To Contact Radiology Diagnoses Pulmonary nodule Procedures CT chest without contrast Viki Gunter DO [address] [address] Phone: tel: fax: Referral ID Status Reason Start Date Expiration Date Visits Re quested Visits Authorized [id number] Closed 05/23/2023 05/22/2024 1 1 Encounter Details Date Type Department Care Team (Late st Contact Info) Description 05/23/2023 Telephone [facility] Pulmonary/Sleep Medicine [address] [phone] Gabbi Garcia RN Social History Tobacco Use [...] often do you attend chur ch or gnosticist services? Never 06/25/2022 Do you belong to any clubs o r organizations such as worship groups, unions, fraternal or athletic groups, or [...] Answer Date Recorded Total Score 18 06/25/2022 [facility] [place] of Occupat ional Health - Occupational Stress [...] Recorded Do you need help finding a [facility] career center and/or a training [...] Telephone Encounter - Gabbi Garcia RN - 05/23/2023 12:21 PM EDT Rehabilitation Center Manager spoke to patient and informed per Dr Gunter, CT chest reveiwed. It showed LLL nodule is moreprominent. Dr Gunter would like to monitor this closely. It is too small for PET CT or biopsy. Recommend patient to repeat CT chest WO in 3 months and to keep f/u appt with physician. Patient agreeable Second, informed 2 samples of Trelegy 100 available for shredder picker at [place] office on 05-26-23. Patient agreeable CT chest order placed in outgoing mail to patient ----- Message from Viki Gunter DO sent at 05/22/2023 4:24 PM EDT ----- CT reviewed and LLL nodule is more prominent. I would like to watch this closely. It is too small for PET/CT or biopsy but will repeat CT chest in 3 months please. documented in this encounter Plan of Treatment Upcoming Encounters Date Type Department Care Team (Late st Contact Info) Description 03/01/2025 2:00 PM EDT [facility] [address] [place] [phone] documented as of this encounter Results * CT chest without contrast (01/26/2024 11:40 AM EDT) Anatomical Region Laterality Modality Lung, Chest, Body Covera N/A Compute d Tomography 01/27/2024 8:19 AM EDT Narrative 01/27/2024 8:27 AM EDT Study: CT chest without contrast History:Pulmonary nodule Protocol:CT chest without contrast Contrast COMPARISON:05/20/2023 Findings: Lower Neck:Normal Mediastinum:No adenopathy Khadijah:No adenopathy Vessels:No aortic aneurysm Heart:Mild coronary artery calcification Lungs:Paraseptal and centrilobular emphysema. Linear scarring in the lingula. Previously noted pulmonary nodule measuring 6.5 mm in the superior segment of the left lower lobe series 2 image 44 is decreased in size and now measures approximately 3 mm. Series 2 image 40 on today's study. There is a stable pulmonary nodule also in the superior segment of the left lower lobe measuring approximately 2.3 mm series 2 image 50. In the area of lingular scarring there is a small focus of round density related to the scar or could be small nodule that measures approximately 4.3 mm in size which is unchanged to slightly decreased in size. Series 2 image 76 on today's study. No right-sided nodules identified. Nodules: Pleura:No effusion Chest wall:Normal Upper abdomen:Normal Bones:Degenerative changes in the thoracic spine and spinal cord stimulator present Impression: Pulmonary nodule seen on prior exam are either stable or decreased in size. All CT scans at this facility use dose modulation, iterative reconstruction, and/or weight based dosing when appropriate to reduce radiation dose to as low as reasonably achievable. Finalized by Floyd Dorsey MD on 01/27/2024 8:27 AM Procedure Note Floyd Dorsey MD - 01/27/2024 Study: CT chest without contrast History:Pulmonary nodule Protocol:CT chest without contrast Contrast COMPARISON:05/20/2023 Findings: Lower Neck:Normal Mediastinum:No adenopathy Khadijah:No adenopathy Vessels:No aortic aneurysm Heart:Mild coronary artery calcification Lungs:Paraseptal and centrilobular emphysema. Linear scarring in thelingula. Previously noted pulmonary nodule measuring 6.5 mm in thesuperior segment of the left lower lobe series 2 image 44 is decreased insize and now measures approximately 3 mm. Series 2 image 40 on today'sstudy. There is a stable pulmonary nodule also in the superior segment of the left lowerlobe measuring approximately 2.3 mm series 2 image 50. In the area oflingular scarring there is a small focus of round density related to thescar or could be small nodule that measures approximately 4.3 mm in sizewhich is unchanged to slightly decreased in size. Series 2 image 76 on today'sstudy. No right-sided nodules identified. Nodules: Pleura:No effusion Chest wall:Normal Upper abdomen:Normal Bones:Degenerative changes in the thoracic spine and spinal cordstimulator present Impression: Pulmonary nodule seen on prior exam are either stable or decreased insize. All CT scans at this facility use dose modulation, iterativereconstruction, and/or weight based dosing when appropriate to reduceradiation dose to as low as reasonably achievable. Finalized by Floyd Dorsey MD on 01/27/2024 8:27 AM Viki Gunter DO [facility] [place] ORDERABLES Final Resul t documented in this encounter Visit Diagnoses Diagnosis Pulmonary nodule less than 6 mm determined by computed tomography of lung- Primary Pulmonary nodule Other diseases of lung, not elsewhere classified Pulmonary nodule Other diseases of lung, not elsewhere classified documented in this encounter Additional Health Concerns Infection Onset Date Last Indicated Resolved Time Respiratory Rule-Out 01/25/2025 01/25/2025 025 12:26 PM EDT Assessment Noted Time PHQ-9 Depression Total Score: 18 022 12:26 AM EDT documented as of this encounter Care Teams Automatic Pattern Edger Relationship Specialty Start Date End Date Char Luu MD [address] [place] [address] PCP - General Pediatrics 12/02/24 documented as of this encounter
--- OUTSIDE RECORDS SUMMARY | 2025-02-15 10:25 | XMS_ITS | Encounter Summary ---
Author Organization [employer] tem Address [id number] [address] [place] [address] Care Team Providers Care Cigar Maker Name Role Phone Char Luu MD Primary Care Provider + Encounter Details Date Type Department Care Team (Latest Contact Info) Description 02/04/2025 Travel Social History Tobacco Use Types Packs/Day Years Used Date Smoking Tobacco: Former Smokeless Tobacco: Never Alcohol Use Standard Drinks/Week Comments Not Currently 0 (1 standard drink = 0.6 oz pur e alcohol) [facility] Utilities Answer Date Recorded In the past 12 months has [employer], gas, oil, or water company threatened [...] often do you attend chur ch or sabianist services? Never 06/25/2022 Do you belong to [...] Answer Date Recorded Total Score 18 01/15/2025 [facility] of Occupat ional Health - Occupational [...] unable to answer 02/04/2025 2:15 PM EDT Annalias Celis RN Within the last year, have [...] [facility] [address] [place] [address] documented as of this encounter Visit Diagnoses Not on filedocumented in this encounter Additional Health Concerns Assessment Noted Time PHQ-9 Depression Total Score: 18 025 11:23 AM EDT documented as of this encounter Care Teams Cigar Maker Relationship Specialty Start Date End Date Char Luu MD [address] [place] [phone] PCP - General Pediatrics 12/02/24 documented as of this encounter
--- OUTSIDE RECORDS SUMMARY | 2025-02-15 10:25 | XMS_ITS | Encounter Summary ---
Author Organization [employer] Address [facility] [place]-[id number] [address] [place] [address] Care Team Providers Care Profile Grinder Name Role Phone Char Luu MD Primary Care Provider + Encounter Details Date Type Department Care Team (Late st Contact Info) Description 01/14/2025 Telephone [facility] Pul[facility]/Sleep Medicine [address] [place] [phone] Rosa Han, [facility] Social History Tobacco Use Types Packs/Day Years Used Date Smoking Tobacco: Former Smokeless Tobacco: Never Alcohol Use Standard Drinks/Week Comments Not Currently 0 (1 standard drink = 0.6 oz pur e alcohol) [facility] Utilities Answer Date Recorded In the past 12 months has [employer] electric, gas, oil, or water company threatened [...] often do you attend chur ch or holiness services? Never 06/25/2022 Do you belong to any clubs o r organizations such as advent groups, unions, fraternal or athletic groups, or [...] Do you need help finding a [facility] career center and/or a training program? [...] as of this encounter Functional Status * Question Answer Date of Assessment Author Functional Status Moderate assistance 01/15/2025 12:18 PM EDT Lianne Ignacio RN * Audit-C Score Answer Date of Assessment Author 0 01/15/2025 11:20 AM Ann Huston RN * Intimate Partner Violence Question Answer Date of Assessment Author Within the last year, have y ou been humiliated or emotionally abused in other ways by your partner or ex-partner? No 01/15/2025 11:20 AM Suzette Huston RN Within the last year, have y ou been afraid of your partner or ex-partner? No 01/15/2025 11:20 AM Rika Huston RN Within the last year, have y ou been raped or forced to have any kind of sexual activity by your partner or ex-partner? No 01/15/2025 11:20 AM Suzette Huston RN Within the last year, have y ou been kicked, hit, slapped, or otherwise physically hurt by your partner or ex-partner? No 01/15/2025 11:20 AM Ann Huston RN * Question Answer Date of Assessment Author Q1: How often do you have a drink containing alcohol? Never 01/15/2025 11:20 AM Rika Huston RN Q2: How many drinks containing alcohol do you have on a typical day when you are drinking? Patient does not drink 01/15/2025 11:20 AM Ann Huston RN Q3: How often do you have six or more drinks on one occasion? Never 01/15/2025 11:20 AM EDT Rika Traylor RN documented as of this encounter Miscellaneous Notes * Telephone Encounter - Rosa Han CMA - 01/14/2025 10:59 AM EDT Patient's daughter in law Monica called office and began listing things happening with patient. Licensed Appraiser wrote them down and then called ( [facility]), Jason to discuss. He said that patient is complaining not getting enough oxygen, but they have not been checking pulse ox. Patient went and got her portable concentrator and had on both her nasal cannulas from stationary concentrator and her portable at same time. Patient also later took off one of the nasal cannulas and placed in her mouth to get better oxygen. verified last few weeks she has been acting differently and has been combative at times. Patient is not sleeping and not eating well. Licensed Appraiser advised patient should be taken toED for evaluation. * Telephone Encounter - Viki Gunter DO - 01/14/2025 10:59 AM EDT Did patient go to ER? Is there an update. I was off this day * Telephone Encounter - REN Anguiano - 01/14/2025 10:59 AM EDT Looks like patient went to ED and is currently admitted. documented in this encounter Plan of Treatment Upcoming Encounters Date Type Department Care Team (Late st Contact Info) Description 03/01/2025 2:00 PM EDT Clinical Support [facility] Cardiology [address] [place] [address] documented as of this encounter Visit Diagnoses Not on filedocumented in this encounter Additional Health Concerns Infection Onset Date Last Indicated Resolved Time Respiratory Rule-Out 01/25/2025 01/25/2025 05/13/2 025 12:26 PM EDT Assessment Noted Time PHQ-9 Depression Total Score: 18 022 12:26 AM EDT documented as of this encounter Care Teams Profile Grinder Relationship Specialty Start Date End Date Char Luu MD [address] [place] [address] PCP - General Pediatrics 12/02/24 documented as of this encounter
--- OUTSIDE RECORDS SUMMARY | 2025-02-15 10:25 | XMS_ITS | Encounter Summary ---
Author Organization [employer] tem Address [facility] [id number] [address] [place] [address] Care Team Providers Care Launderer Hand Name Role Phone Char Luu MD Primary Care Provider + Reason for Visit * Reason Onset Date Comments Hospital Follow-up 01/21/2025 Encounter Details Date Type Department Care Team (Late st Contact Info) Description 01/21/2025 Telephone [facility] Cardiology [address] [place] [address] [facility] Follow-up Social History Tobacco Use Types Packs/Day Years Used Date Smoking Tobacco: Former Smokeless Tobacco: Never Alcohol Use Standard Drinks/Week Comments Not Currently 0 (1 standard drink = 0.6 oz pur e alcohol) [facility] Utilities Answer Date Recorded In the past 12 months has [employer], gas, oil, or water [employer] threatened to shut off services in your [...] often do you attend chur ch or restorationism services? Never 06/25/2022 Do you belong to any clubs o r organizations such as jehovah's witness groups, unions, fraternal or athletic groups, or [...] Answer Date Recorded Total Score 18 01/15/2025 [facility] Occupat ional Health - Occupational [...] Recorded Do you need help finding a [facility] and/or a training program? [...] on file documented as of this encounter Mental Status * Question Answer Entry Date Author Overall Cognitive Status X 01/24/2025 10:39 AM EDT Danika Payne, OTR/L documented in this encounter Miscellaneous Notes * Telephone Encounter - Mitzy Carson - 01/21/2025 8:52 AM EDT Message from the 01/18/25 discharge list per AUTOMOTIVE HARDWARE ENGINEER. He signed off patient care from [facility] Dx Paroxysmal atrial fibrillation/flutter, prior CTI RFA 2021 NSTEMI, hs-trop 876 Hypertension Hyperlipidemia Coronary calcifications seen on CT Acute on chronic hypoxic respiratory failure COPD with acute exacerbation Obstructive sleep apnea Hypothyroidism Iron-deficiency anemia Patient to f/u in 1 to 2 weeks post d/c bvb * Telephone Encounter - Brit Estrada - 01/21/2025 8:52 AM EDT PT STILL ADMITTED * Telephone Encounter - Ness Ponce CMA - 01/21/2025 8:52 AM EDT PT STILL ADMITTED * Telephone Encounter - Brit Estrada - 01/21/2025 8:52 AM EDT PT STILL ADMITTED * Telephone Encounter - Brit Estrada - 01/21/2025 8:52 AM EDT PT STILL ADMITTED * Telephone Encounter - Ness Ponce CMA - 01/21/2025 8:52 AM EDT PT STILL ADMITTED * Telephone Encounter - Ness Ponce CMA - 01/21/2025 8:52 AM EDT PT STILL CURRENTLY ADMITTED * Telephone Encounter - Sugey Herrera MA - 01/21/2025 8:52 AM EDT Called pt to schedule f/u appt from recent IP stay. No Answer. LMOM. JLW * Telephone Encounter - uSgey Nick CMA - 01/21/2025 8:52 AM EDT Attempted to phone pt to sched hosp fu and unable to lm as vm full, letter mailed to pt. documented in this encounter Plan of Treatment Upcoming Encounters Date Type Department Care Team (Late st Contact Info) Description 03/01/2025 2:00 PM EDT Clinical Support [facility] Cardiology [address] [place] [address] documented as of this encounter Visit Diagnoses Not on filedocumented in this encounter Additional Health Concerns Infection Onset Date Last Indicated Resolved Time Respiratory Rule-Out 01/25/2025 01/25/2025 025 12:26 PM EDT Assessment Noted Time PHQ-9 Depression Total Score: 18 025 11:23 AM EDT documented as of this encounter Care Teams Launderer Hand Relationship Specialty Start Date End Date Char Luu MD [address] [place] [phone] PCP - General Pediatrics 12/02/24 documented as of this encounter
--- OUTSIDE RECORDS SUMMARY | 2025-02-15 10:25 | XMS_ITS | Encounter Summary ---
Author [facility] Address [facility] [place]-[id number] [address] [place] [address] Care Team Providers Care Full Stack Net Developer Name Role Phone Char Luu MD Primary Care Provider + Reason for Visit * Reason Onset Date Comments PT Discharge 01/31/2025 Encounter Details Date Type Department Care Team (Late st Contact Info) Description 01/31/2025 Telephone [facility] [address] [place] [address] Ivonne Manzanares MD [address] [place], [place] [phone] PT Discharge Social History Tobacco Use Types Packs/Day Years Used Date Smoking Tobacco: Former Smokeless Tobacco: Never Alcohol Use Standard Drinks/Week Comments Not Currently 0 (1 standard drink = 0.6 oz pur e alcohol) [facility] Utilities Answer Date Recorded In the past 12 months has th [email or web address] electric, gas, oil, or water company threatened [...] Never 06/25/2022 How often do you attend [facility] or confucianism services? Never 06/25/2022 Do you belong to any clubs o r organizations such as congregational groups, unions, fraternal or athletic groups, or [...] Answer Date Recorded Total Score 18 01/15/2025 [facility] of Occupat ional Health - Occupational [...] encounter Miscellaneous Notes * Telephone Encounter - Stephanie Cantor - 01/31/2025 10:09 AM EDT PER MESSAGE FROM THE 01/28/2025 PROCEDURE LIST: PER JBP; PT DCD FROM [facility] S/P Successful dual-chamberpacemaker with RV lead placed at left bundle area location following that AV node ablation. Patient will need follow-up with EP nurse practitioner for site check in 10-14 days and device interrogation 4-6 weeks.-K[facility] * Telephone Encounter - Linsey Betts - 01/31/2025 10:09 AM EDT Lmr 5-19 to schedule appt-Ok to add on for wound ck on 02/10 @ 11:30 w/jinny-per arely/jinny * Telephone Encounter - Linsey Betts - 01/31/2025 10:09 AM EDT Lmr 5-22 for pt to schedule appt documented in this encounter Plan of Treatment Upcoming Encounters Date Type Department Care Team (Late st Contact Info) Description 03/01/2025 2:00 PM EDT Clinical Support [facility] [address] [place] [phone] documented as of this encounter Visit Diagnoses Not on filedocumented in this encounter Additional Health Concerns Assessment Noted Time PHQ-9 Depression Total Score: 18 025 11:23 AM EDT documented as of this encounter Care Teams Full Stack Net Developer Relationship Specialty Start Date End Date Char Luu MD [address] [place] [phone] PCP - General Pediatrics 12/02/24 documented as of this encounter
--- OUTSIDE RECORDS SUMMARY | 2025-02-15 10:25 | XMS_ITS | Encounter Summary ---
Author Organization [facility] tem Address [facility] [place]-[id number] [address] [place] [address] Care Team Providers Care Director Of Home Health Services Name Role Phone Char Luu MD Primary Care Provider + Encounter Details Date Type Department Care Team (Latest Contact Info) Description 01/31/2025 Follow Up Anticoagulation [facility] - Pharmacy Medication Management [address] [place] [address] Db Nino, [facility] [address] [place] [address] halfway (current) use of anticoagulants (Primary Dx) Social History Tobacco Use Types Packs/Day Years Used Date Smoking Tobacco: Former Smokeless Tobacco: Never Alcohol Use Standard Drinks/Week Comments Not Currently 0 (1 standard drink = 0.6 oz pur e alcohol) [facility] Utilities Answer Date Recorded In the past 12 months has th [employer] electric, gas, oil, or water company threatened [...] Never 06/25/2022 How often do you attend [facility] or denominational services? Never 06/25/2022 Do you belong to any clubs o r organizations such as sikh groups, unions, fraternal or athletic groups, or [...] Answer Date Recorded Total Score 18 01/15/2025 [facility] of Occupat ional Health - [...] Recorded Do you need help finding a [facility] career center and/or a training program? [...] Status Assistive device 02/07/2025 10:43 AM EDT Olena Paris RN * Intimate Partner Violence Question Answer Date of Assessment Author Within the last year, have you been humiliated or emotionally abused in other ways by your partner or ex-partner? Patient unable to answer 02/04/2025 2:15 PM EDT Annalisa Celis RN Within the last year, have you been afraid of your partner or ex-partner? Patient unable to answer 02/04/2025 2:15 PM KEELYT Annalisa Celis RN Within the last year, have you been raped or forced to have any kind of sexual activity by your partner or ex-partner? Patient unable to answer 02/04/2025 2:15 PM KEELYT Annalisa Celis RN Within the last year, have you been kicked, hit, slapped, or otherwise physically hurt by your partner or ex-partner? Patient unable to answer 02/04/2025 2:15 PM EDT Annalisa Celis RN documented as of this encounter Mental Status * Question Answer Entry Date Author Overall Cognitive Status X 02/12/2025 8:55 AM EDT Ethan Servin PTA documented in this encounter Progress Notes * Db Nino, [facility] - 01/31/2025 7:57 AM EDT Patient presented to [facility] ED on 5/2/25 with tachycardia and chest pain. Patent had elevated troponin snf pH of 7.29. EKG also noted atrial fibrillation. She was tarted on diltiazem. She was started on BiPAP and transferred to [facility]. Hospital stay included intubation, AV node ablation with dual chamber placement on 01/28/25. New medications ast discharge include flecainide 50 mg every 12 hours, doxycyline 100 mg twice daily for two days, gabapentin 300 mg TID, liothyronine 25 mch daily, prednisone 40 mg daily for two days, and Duoneb nebulizer. Patient's furosemide and metoprolol succinate dose adjusted as well. Patient discharged to [facility]. Fax sent to facility requesting they notify [facility] of discharge. Will resolve episode. Db Nino [facility] 01/31/25 0839 * Lisa Holbrook [facility] - 01/31/2025 7:57 AM EDT Updated referral received from Dr. Khang Moreland. Patient was found unresponsive at [facility]25 for septic shock secondary to Staph bacteremia and hospital-acquired pneumonia.She was treated with IV vancomycin through 02/18/25. She was intubated for acute on chronic hypoxic respiratory failure 02/04-02/05 and completed a 4 day course of prednisone. EP discontinued her metoprolol and flecainide. Warfarin dosing updated in Anticoag Track and then episode resolved again. Referral is from a pharmacy intern hospitalist so will keep referral under [facility]. Lisa Holbrook [facility] 02/14/25 0942 documented in this encounter Plan of Treatment Upcoming Encounters Date Type Department Care Team (Late st Contact Info) Description 03/01/2025 2:00 PM EDT Clinical Support [facility] [address] [place] [phone] documented as of this encounter Goals Goal Patient Goal Type Associated Problems Recent Progress Patient-Stated? Author [facility] General Yes Olena Paris, RN Note: Evaluation of progress towards goal: Progress to a safe discharge documented as of this encounter Visit Diagnoses Diagnosis continuous churn buttermaker (current) use of anticoagulants- Primary Long-term (current) use of anticoagulants documented in this encounter Additional Health Concerns Assessment Noted Time PHQ-9 Depression Total Score: 18 025 11:23 AM EDT documented as of this encounter Care Teams Director Of Home Health Services Relationship Specialty Start Date End Date Char Luu MD [address] [facility] [place] [address] PCP - General Pediatrics 12/02/24 documented as of this encounter
--- OUTSIDE RECORDS SUMMARY | 2025-02-15 10:25 | XMS_ITS | Clinical Summary ---
Author Organization [facility] Address [address] [place] [address] Care Team Providers Care Custom Protection Officer Name Role Phone Rodrigo Ibarra MD Primary Care Provider [phone] Allergies Active Allergy Reactions Criticality Noted Date Comments Zonisamide 03/04/2013 Trouble breathing, tongue swells Medications oxymorphone (OPANA) 10 MG tablet Take 10 mg by mouth 2 times daily. Active gabapentin (NEURONTIN) 300 MG capsule Take 300 mg by mouth 4 times daily. Active aspirin 325 MG tablet Take 325 mg by mouth daily. Active amLODIPine (NORVASC) 5 MG tablet Take 2.5 mg by mouth daily. Active furosemide (LASIX) 20 MG tablet Take 20 mg by mouth daily. Active buPROPion (WELLBUTRIN) 100 MG tablet Take 100 mg by mouth daily. Active oxyCODONE-aceta minophen (PERCOCET) 5-325 MG per tablet Take 1 tablet by mouth every 8 hours as needed. Active diazepam (VALIUM) 5 MG tablet Take 5 mg by mouth daily. prn Active pravastatin (PRAVACHOL) 20 MG tablet Take 10 mg by mouth daily. Active DULoxetine (CYMBALTA) 60 MG capsule Take 60 mg by mouth daily. Active escitalopram (LEXAPRO) 10 MG tablet Take 15 mg by mouth daily. Active senna (SENOKOT) 8.6 MG tablet Take 1 tablet by mouth 3 times daily as needed. Active diclofenac sodium 1 % GEL Apply 2 g topically 4 times daily. prn Active eszopiclone (ESZOPICLONE) 3 MG TABS Take 3 mg by mouth nightly. Active Family History Medical History Relation Name Comments Heart Disease Father Cancer Mother Relation Name Status Comments Father Alive Mother Social History Tobacco Use Types Packs/Day Years Used Date Smoking Tobacco: Former Cigarettes 1.5 30 Alcohol Use Standard Drinks/Week Comments Yes 0 (1 standard drink = 0.6 oz pur e alcohol) rare Comments Unknown Sex and Gender Information Value Date Recorded Sex Assigned at Not on file Legal Sex Female 8:43 PM EST Gender Identity Not on file Sexual Orientation Not on file Last Filed Vital Signs Vital Sign Reading Time Taken Comments Blood Pressure 120/75 03/10/2013 9:30 AM EDT Pulse 75 03/10/2013 9:30 AM EDT Temperature 36 C (96.8 F) 03/10/2013 9:17 AM EDT Respiratory Rate 16 03/10/2013 9:30 AM EDT Oxygen Saturation 98% 03/10/2013 9:30 AM EDT Inhaled Oxygen Concentration - - Weight 88.9 kg (196 lb) 03/10/2013 7:16 AM EDT Height 160 cm (5' 3 ) 03/10/2013 7:16 AM EDT Body Mass Index 34.72 03/10/2013 7:16 AM EDT Plan of Treatment Not on file Insurance [employer] [facility] Care Teams Custom Protection Officer Relationship Specialty Start Date End Date Rodrigo Ibarra MD [address] [phone] PCP - General 03/03/13
--- OUTSIDE RECORDS SUMMARY | 2025-02-15 10:25 | XMS_ITS | Encounter Summary ---
Author Organization [employer] [employer] tem Address [facility] [place]-[id number] [address] [place] [address] Care Team Providers Care Assistant Golf Course Superintendent Name Role Phone Char Luu MD Primary Care Provider + Reason for Visit * Reason Onset Date Comments Atrial Fibrillation 01/24/2025 Contract: [id number] [phone] [facility] Afib w/RVR; Rm [id number] Encounter Details Date Type Department Care Team (Late st Contact Info) Description 01/24/2025 Telephone [facility] [address] [place] [phone] Silvana Cantor Atrial [facility]ibrillation ([phone] [facility] Afib w/RVR; Rm [id number]) Social History Tobacco Use Types Packs/Day Years Used Date Smoking Tobacco: Former Smokeless Tobacco: Never Alcohol Use Standard Drinks/Week Comments Not Currently 0 (1 standard drink = 0.6 oz pur e alcohol) [facility] Utilities Answer Date Recorded In the past 12 months has [employer] electric, gas, oil, or water company threatened [...] Answer Date Recorded Total Score 18 01/15/2025 [facility] of Occupat ional Health - [...] Recorded Do you need help finding a [facility] career center and/or a training [...] X 01/24/2025 10:39 AM EDT Danika Payne, DENNISR/Jean Claude documented in this encounter Miscellaneous Notes * Telephone Encounter - Silvana Cantor - 01/24/2025 9:32 PM EDT Contract: [facility] [phone] [facility] Afib w/RVR; Rm [id number] documented in this encounter Plan of Treatment Upcoming Encounters Date Type Department Care Team (Late st Contact Info) Description 03/01/2025 2:00 PM EDT Clinical Support [facility] [address] [place] [phone] documented as of this encounter Visit Diagnoses Not on filedocumented in this encounter Additional Health Concerns Infection Onset Date Last Indicated Resolved Time Respiratory Rule-Out 01/25/2025 01/25/2025 025 12:26 PM EDT Assessment Noted Time PHQ-9 Depression Total Score: 18 025 11:23 AM EDT documented as of this encounter Care Teams Assistant Golf Course Superintendent Relationship Specialty Start Date End Date Char Luu MD [address] [place] [address] PCP - General Pediatrics 12/02/24 documented as of this encounter
--- OUTSIDE RECORDS SUMMARY | 2025-02-15 10:25 | XMS_ITS | Encounter Summary ---
Author Organization [facility] tem Address [facility] [place]-[id number] [address] [place] [address] Care Team Providers Care Automobile Body Repair Supervisor Name Role Phone Char Luu MD Primary Care Provider + Encounter Details Date Type Department Care Team (Late st Contact Info) Description 04/24/2023 [facility] [address] [phone] Gabbi Garcia RN Social History Tobacco Use [...] often do you attend chur ch or orthodox services? Never 06/25/2022 Do you belong to any clubs o r organizations such as adventism groups, unions, fraternal or athletic groups, or [...] Answer Date Recorded Total Score 18 06/25/2022 [facility] of Occupat ional Health - [...] Recorded Do you need help finding a [facility] career center and/or a training program? [...] Telephone Encounter - Gabbi Garcia RN - 04/24/2023 12:50 PM EDT Patient called nurse line and left message requesting Trelegy 100 samples. Returned call. No answer. Left message informing Trelegy 100 [place] Office hours provided. Left office phone number for any further questions/concerns documented in this encounter Plan of Treatment Upcoming Encounters Date Type Department Care Team (Late st Contact Info) Description 03/01/2025 2:00 PM EDT Clinical Support [facility] [address] [place] [phone] documented as of this encounter Visit Diagnoses Not on filedocumented in this encounter Additional Health Concerns Infection Onset Date Last Indicated Resolved Time Respiratory Rule-Out 01/25/2025 01/25/2025 025 12:26 PM EDT Assessment Noted Time PHQ-9 Depression Total Score: 18 022 12:26 AM EDT documented as of this encounter Care Teams Automobile Body Repair Supervisor Relationship Specialty Start Date End Date Char Luu MD [address] [facility] [place] [place] [address] PCP - General Pediatrics 12/02/24 documented as of this encounter
--- OUTSIDE RECORDS SUMMARY | 2025-02-15 10:25 | XMS_ITS | Encounter Summary ---
Author Organization [facility] Address [id number] [address] [place] [address] Care Team Providers Care Healthcare Technician Name Role Phone Char Luu MD Primary Care Provider + Reason for Visit * Reason Comments Med Refill Encounter Details Date Type Department Care Team (Late st Contact Info) Description 12/21/2024 Refill [facility] [address] [place] [phone] Monae Peña, SCALLOP BINDER-BRIM EDGE TRIMMER [address] [place] [address] Med Refill Social History Tobacco Use Types [...] any clubs o r organizations such as episcopal groups, unions, fraternal or athletic groups, or [...] Answer Date Recorded Total Score 18 06/25/2022 [facility] Occupat ional Health - Occupational [...] Recorded Do you need help finding a [facility] uclaal career center and/or a training program? No 06/25/2022 Hunger Screening Answer Date Recorded Within the past 12 months we worried whether our food would run out before we got money to buy more. Never True 10/22/2024 Within the past 12 months th e food we bought just didn't last and we didn't have money to get more. Never True 10/22/2024 Purpose - Life Answer Date Recorded I have a purpose and direction in my life. Somew hat Disagree 06/25/2022 Comments No Sex and Gender Information Value Date Recorded Sex Assigned at Not on file Legal Sex Female 11:29 AM EDT Gender Identity Not on file Sexual Orientation Not on file documented as of this encounter Miscellaneous Notes * Telephone Encounter - Jannette Moss RN - 12/21/2024 5:42 AM EDT Pt needs to complete labs as ordered. Per previous refill letter was mailed. Med refilled 12/07/24 documented in this encounter Plan of Treatment Upcoming Encounters Date Type Department Care Team (Late st Contact Info) Description 03/01/2025 2:00 PM EDT Clinical Support [facility] [address] [place] [address] documented as of this encounter Visit Diagnoses Not on filedocumented in this encounter Additional Health Concerns Infection Onset Date Last Indicated Resolved Time Respiratory Rule-Out 01/25/2025 01/25/2025 025 12:26 PM EDT Assessment Noted Time PHQ-9 Depression Total Score: 18 022 12:26 AM EDT documented as of this encounter Care Teams Healthcare Technician Relationship Specialty Start Date End Date Char Luu MD [address] [place] [phone] PCP - General Pediatrics 12/02/24 documented as of this encounter
--- OUTSIDE RECORDS SUMMARY | 2025-02-15 10:25 | XMS_ITS | Encounter Summary ---
Author Organization [employer] Address [facility] [place]-[id number] [address] [place] [address] Care Team Providers Care Janitorial Services Supervisor Name Role Phone Char Luu MD Primary Care Provider + Reason for Visit * Reason Onset Date Comments nstemi 01/15/2025 Encounter Details Date Type Department Care Team (Late st Contact Info) Description 01/15/2025 Telephone [facility] [address] [place] [phone] Melody Mann nstemi Social History Tobacco Use Types Packs/Day Years Used Date Smoking Tobacco: Former Smokeless Tobacco: Never Alcohol Use Standard Drinks/Week Comments Not Currently 0 (1 standard drink = 0.6 oz pur e alcohol) [facility] Utilities Answer Date Recorded In the past 12 months has [employer], gas, oil, or water [employer] threatened to shut off services in your [...] any clubs o r organizations such as faith groups, unions, fraternal or athletic groups, or [...] Answer Date Recorded Total Score 18 01/15/2025 [facility] of Occupat ional Health - Occupational Stress [...] Recorded Do you need help finding a [place] [employer] career center and/or a training program? No [...] Functional Status Moderate assistance 01/15/2025 12:18 PM Lianne May RN * Audit-C Score Answer Date of [...] Traylor RN documented as of this encounter Mental Status * Question Answer Entry Date Author Overall Cognitive Status X 01/18/2025 2:01 PM EDT Ina Haque PT documented in this encounter Miscellaneous Notes * Telephone Encounter - Melody Mann - 01/15/2025 12:40 AM EDT Contract: [facility] [phone] [facility] Nstemi Secure chat sent documented in this encounter Plan of Treatment Upcoming Encounters Date Type Department Care Team (Late st Contact Info) Description 03/01/2025 2:00 PM EDT Clinical Support [facility] [address] [place] [phone] documented as of this encounter Visit Diagnoses Not on filedocumented in this encounter Additional Health Concerns Infection Onset Date Last Indicated Resolved Time Respiratory Rule-Out 01/25/2025 01/25/2025 025 12:26 PM EDT Assessment Noted Time PHQ-9 Depression Total Score: 18 025 11:23 AM EDT documented as of this encounter Care Teams Janitorial Services Supervisor Relationship Specialty Start Date End Date Char Luu MD [address] [facility] [place] [address] PCP - General Pediatrics 12/02/24 documented as of this encounter
--- OUTSIDE RECORDS SUMMARY | 2025-02-15 10:25 | XMS_ITS | Encounter Summary ---
Author Organization [employer] tem Address [id number] [address] [place] [address] Care Team Providers Care Director Human Services Name Role Phone Char Luu MD Primary Care Provider + Reason for Visit * Reason Onset Date Comments NEW CONSULT 01/14/2025 NSTEMI 01/14/2025 Encounter Details Date Type Department Care Team (Late st Contact Info) Description 01/14/20[facility] [address] [place] [phone] Brianna Cole NEW CONSULT ; NSTEMI Social History Tobacco Use Types Packs/Day Years Used Date Smoking Tobacco: Former Smokeless Tobacco: Never Alcohol Use Standard Drinks/Week Comments Not Currently 0 (1 standard drink = 0.6 oz pur e alcohol) [facility] Utilities Answer Date Recorded In the past 12 months has [employer], gas, oil, or water [employer] threatened to shut off services in your [...] often do you attend chur ch or oriental orthodox services? Never 06/25/2022 Do you belong to any clubs o r organizations such as shinto groups, unions, fraternal or athletic groups, or [...] Answer Date Recorded Total Score 18 01/15/2025 [facility] - Occupational Stress Questionnaire Answer Date Recorded [...] Recorded Do you need help finding a [facility] career center and/or a training program? No [...] Patient does not drink 01/15/2025 11:20 AM EDT Traylor, Ann, RN Q3: How often do you have six or more drinks on one occasion? Never 01/15/2025 11:20 AM EDT Rika Traylor RN documented as of this encounter Miscellaneous Notes * Telephone Encounter - Brianna Douglas - 01/14/2025 6:14 PM EDT Contract: [facility] re Nstemi New Consult * Telephone Encounter - Brianna Cole - 01/14/2025 6:14 PM EDT Secure Chat sent and Routing documented in this encounter Plan of Treatment Upcoming Encounters Date Type Department Care Team (Late st Contact Info) Description 03/01/2025 2:00 PM EDT Clinical Support [facility] [address] [place] [phone] documented as of this encounter Visit Diagnoses Not on filedocumented in this encounter Additional Health Concerns Infection Onset Date Last Indicated Resolved Time Respiratory Rule-Out 01/25/2025 01/25/2025 025 12:26 PM EDT Assessment Noted Time PHQ-9 Depression Total Score: 18 022 12:26 AM EDT documented as of this encounter Care Teams Director Human Services Relationship Specialty Start Date End Date Char Luu MD [address] [facility] [place] [address] PCP - General Pediatrics 12/02/24 documented as of this encounter
--- OUTSIDE RECORDS SUMMARY | 2025-02-15 10:25 | XMS_ITS | Encounter Summary ---
Author Organization [employer] tem Address [id number] [address] [place] [address] Care Team Providers Care Senior Credit Analyst Name Role Phone Char Luu MD Primary Care Provider + Reason for Visit * Reason Onset Date Comments Critical CO2 from [facility] 01/17/2025 Encounter Details Date Type Department Care Team (Late st Contact Info) Description [facility]/17/[facility] [address] [place] [address] Mechelle Bailey RN Critical CO2 from [facility] Social History Tobacco Use Types Packs/Day Years Used Date Smoking Tobacco: Former Smokeless Tobacco: Never Alcohol Use Standard Drinks/Week Comments Not Currently 0 (1 standard drink = 0.6 oz pur e alcohol) [facility] Utilities Answer Date Recorded In the past 12 months has [employer] gas, oil, or water [employer] threatened to shut off services in your home? No 01/15/2025 Social Connection and Isolation Panel [NHANES] A nswer Date Recorded In a typical week, how many times do you talk on the phone with family, friends, or neighbors? Three times a week 06/25/2022 How often do you get togethe r with friends or relatives? Never 06/25/2022 How often do you attend chur or christian services? Never 06/25/2022 Do you belong to any clubs o r organizations such as yarsanism groups, unions, fraternal or athletic groups, or [...] Answer Date Recorded Total Score 18 01/15/2025 [facility] of Occupat ional Health - Occupational [...] Recorded Do you need help finding a [facility] career center and/or a training program? No [...] Entry Date Author Overall Cognitive Status X 01/20/2025 2:47 PM EDT Mary Grace Sousa COTA/Jean Claude documented in this encounter Miscellaneous Notes * Telephone Encounter - Mechelle Bailey RN - 01/17/2025 7:46 PM EDT Contract: 91 Nurse Pulido @[email or web address] calling requesting page to on-call provider re: Critical CO2 from [facility]. Pt currently in Rm [id number]. Nurse's contact number [phone]. * Telephone Encounter - Mechelle Bailey RN - 01/17/2025 7:46 PM EDT Contract: 91 On-call provider Ruddy Yancey MD contacted and transferred through to speak with nurse Pulido at this time. documented in this encounter Plan of Treatment Upcoming Encounters Date Type Department Care Team (Late st Contact Info) Description 03/01/2025 2:00 PM EDT Clinical Support [facility] [address] [place] [phone] documented as of this encounter Visit Diagnoses Not on filedocumented in this encounter Additional Health Concerns Infection Onset Date Last Indicated Resolved Time Respiratory Rule-Out 01/25/2025 01/25/2025 025 12:26 PM EDT Assessment Noted Time PHQ-9 Depression Total Score: 18 025 11:23 AM EDT documented as of this encounter Care Teams Senior Credit Analyst Relationship Specialty Start Date End Date Char Luu MD [address] [facility] [place] [address] PCP - General Pediatrics 12/02/24 documented as of this encounter
--- OUTSIDE RECORDS SUMMARY | 2025-02-15 10:25 | XMS_ITS | Encounter Summary ---
Author Organization [employer] [facility] tem Address [facility] [place]-[id number] [address] [place] [address] Care Team Providers Care Button Decorating Machine Operator Name Role Phone Char Luu MD Primary Care Provider + Encounter Details Date Type Department Care Team (Late st Contact Info) Description 04/21/2023 [facility] [address] [phone] Gabbi Garcia RN Social History Tobacco Use [...] often do you attend chur ch or episcopalian services? Never 06/25/2022 Do you belong to [...] Recorded Do you need help finding a [employer] career center and/or a training program? [...] Telephone Encounter - Gabbi Garcia RN - 04/21/2023 1:11 PM EDT Patient called nurse line and stated in Sep [address] chest was ordered. Unfortunately, patient hasno insurance and [facility] stated unable to schedule unless patient puts deposit of 1/2 down on imaging. Patient reports she is able to do that now. Instructions and centralized scheduling number provided. Patient agreeable Second, patient asking for Trelegy 100 samples. Bottoming Room Supervisor informed, do not have any at this time but to call back on to see if any samples came in. Patient agreeable. documented in this encounter Plan of Treatment Upcoming Encounters Date Type Department Care Team (Late st Contact Info) Description 03/01/2025 2:00 PM EDT Clinical Support [facility] [address] [place] [phone] documented as of this encounter Visit Diagnoses Not on filedocumented in this encounter Additional Health Concerns Infection Onset Date Last Indicated Resolved Time Respiratory Rule-Out 01/25/2025 01/25/2025 025 12:26 PM EDT Assessment Noted Time PHQ-9 Depression Total Score: 18 022 12:26 AM EDT documented as of this encounter Care Teams Button Decorating Machine Operator Relationship Specialty Start Date End Date Char Luu MD [address] [place] [address] PCP - General Pediatrics 12/02/24 documented as of this encounter
--- OUTSIDE RECORDS SUMMARY | 2025-02-15 10:25 | XMS_ITS | Encounter Summary ---
Author Organization [employer] Address [facility] [id number] [address] [place] [address] Care Team Providers Care Lacrosse Coach Name Role Phone Cahr Luu MD Primary Care Provider + Encounter Details Date Type Department Care Team (Late st Contact Info) Description 02/03/2025 Telephone [facility] [address] [place] [phone] Sugey Nick CMA Social History Tobacco Use Types Packs/Day Years Used Date Smoking Tobacco: Former Smokeless Tobacco: Never Alcohol Use Standard Drinks/Week Comments Not Currently 0 (1 standard drink = 0.6 oz pur e alcohol) [facility] Utilities Answer Date Recorded In the past 12 months has [employer], gas, oil, or water [employer] threatened to shut off services in your [...] any clubs o r organizations such as religion groups, unions, fraternal or athletic groups, or [...] Answer Date Recorded Total Score 18 01/15/2025 [facility] of Occupat ional Health [...] encounter Miscellaneous Notes * Telephone Encounter - Sugey Nick CMA - 02/03/2025 10:19 AM EDT Attempted to phone pt to sched hosp fu and unable to lm as vm full, letter mailed to pt. documented in this encounter Plan of Treatment Upcoming Encounters Date Type Department Care Team (Late st Contact Info) Description 03/01/2025 2:00 PM EDT Clinical Support [facility] [address] [place] [address] documented as of this encounter Visit Diagnoses Not on filedocumented in this encounter Additional Health Concerns Assessment Noted Time PHQ-9 Depression Total Score: 18 025 11:23 AM EDT documented as of this encounter Care Teams Lacrosse Coach Relationship Specialty Start Date End Date Char Luu MD [address] [place] [address] PCP - General Pediatrics 12/02/24 documented as of this encounter
[2025-02-15] MEDS: METHYLPREDNISOLONE SOD SUCC PF 125 MG/2 ML VIAL IVP (10:27)
[2025-02-15 10:40] LABS: Basophils Percent Auto 0.2 % (0.2-2.0); Eosinophils Absolute Auto 0.2 10^3/uL (0.0-0.7); Eosinophils Percent Auto 2.2 % (0.9-7.0); Hematocrit 38.1 % (36.0-48.0); Hemoglobin 11.1 g/dL (12.0-16.0); Immature Granulocytes Abs Auto 0.03 10^3/uL (0.00-0.03); Immature Granulocytes Pct Auto 0.3 % (0.0-0.5); Lymphocytes Absolute Auto 1.3 10^3/uL (1.2-3.8); Lymphocytes Percent Auto 12.7 % (20.5-60.0); Mean Corpuscular HGB Conc 29.1 g/dL (29.9-35.2); Mean Corpuscular Hemoglobin 29.1 pg (26.7-34.0); Mean Corpuscular Volume 99.7 fL (81.0-99.0); Mean Platelet Volume 9.4 fL (9.5-13.5); Monocytes Absolute Auto 1.1 10^3/uL (0.3-0.8); Monocytes Percent Auto 10.8 % (1.7-12.0); Neutrophils Absolute Auto 7.6 10^3/uL (1.4-6.5); Neutrophils Percent Auto 73.8 % (43.0-75.0); Platelet Count 281 10^3/uL (150-450); Red Blood Count 3.82 10^6/uL (4.20-5.40); Red Cell Distribution Width 19.1 % (11.0-15.0); White Blood Count 10.2 10^3/uL (4.0-11.0)
[2025-02-15] MEDS: DIAZEPAM 10 MG/2 ML SYRINGE 2 MG IV (10:48)
[2025-02-15 11:08] LABS: Internal Control Within Normal Limits; SARS-CoV-2 Ag NEGATIVE (NEGATIVE)
[2025-02-15 11:12] LABS: Anion Gap 4.7; BUN Creatinine Ratio 18.8; Calcium 9.3 mg/dL (8.5-10.1); Carbon Dioxide 47.3 mmol/L (21.0-32.0); Chloride 99 mmol/L (98-107); Estimated GFR (African America >60 (>=60 mL/min/1.73m^2); Estimated GFR (Non-African Ame >60 (>=60 mL/min/1.73m^2); Glucose 141 mg/dL (74-106); Lactate/Lactic Acid 1.9 mmol/L (0.4-2.0); Sodium 147 mmol/L (136-145); Troponin I High Sensitivity 50.1 pg/mL (4.0-51.3)
--- NOTE | 2025-02-15 11:13 | ED_ITS ---
HPI HPI - General Adult General Chief complaint: Shortness of Breath/Dyspnea Stated complaint: SOB Time Seen by Provider: 02/15/25 10:14 Source: patient Mode of arrival: ambulance History of Present Illness HPI narrative: 64-year-old female presents to the emergency department for difficulty breathing. She was transported here by paramedics and upon arrival she was noted to have a pulse ox in the lower 70s. She has a history of COPD and is being treated with IV vancomycin for pneumonia. She had not yet had her morning dose of the IV vancomycin. She was given an aerosol treatment at the [facility], the facility where she is staying. She does not complain of chest pain. Her breathing got worse this morning. Related Data Home Medications ?Medication ?Instructions ?Recorded ?Confirmed albuterol sulfate 90 mcg/actuation inhalation 02/15/25 aerosol inhaler atorvastatin 10 mg tablet 10 mg PO DAILY 02/15/2512/07 azithromycin 250 mg tablet mg 02/15/25 buspirone 5 mg tablet 10 mg 02/15/25 duloxetine 20 mg capsule,delayed 80 mg PO 02/15/25 release ferrous sulfate 325 mg (65 mg 325 mg PO DAILY 02/15/25 02/15/25 iron) tablet fluticasone fur. 100 mcg-umeclid 1 inh inhalation ANIBAL Y 02/15/25 02/15/25 62.5 mcg-vilant 25 mcg inhalat.powder (Trelegy Ellipta) furosemide 20 mg tablet mg 02/15/25 gabapentin 600 mg tablet mg 02/15/25 guaifenesin 600 mg tablet, 600 mg PO BID PRN congestio n 02/15/25 02/15/25 extended release 12 hr hydrocodone 5 mg-acetaminophen 325 tab 02/15/25 mg tablet hydroxyzine HCl 25 mg tablet mg 02/15/25 liothyronine 25 mcg tablet mcg 02/15/25 trazodone 50 mg tablet 50 mg PO DAILY 02/15/2512/07 vancomycin 1,000 mg intravenous 02/15/25 injection warfarin 5 mg tablet 3 mg 02/15/25 Allergies Allergy/AdvReac Type Severity Reaction Status Date / Time nickel Allergy Severe Unknown Verified 02/15/25 10:23 pregabalin (From Lyrica) Allergy Severe Unknown Verified 02/15/25 10:23 zonisamide Allergy Severe Unknown Verified 02/15/25 10:23 Review of Systems ROS Narrative A ten point review of systems is negative except as noted above. [facility] Medical History (Updated 02/15/25 @ 14:49 by Yandel Pedroza MD) Emphysema lung ?J43.9 - Emphysema, unspecified (ICD-10) Pacemaker ?Z95.0 - Presence of cardiac pacemaker (ICD-10) Tremor ?R25.1 - Tremor, unspecified (ICD-10) Hypertension ?I10 - Essential (primary) hypertension (ICD-10) Anxiety ?F41.9 - Anxiety disorder, unspecified (ICD-10) WILIAN (obstructive sleep apnea) ?G47.33 - Obstructive sleep apnea (adult) (pediatric) (ICD-10) NSTEMI (non-ST elevated myocardial infarction) ?I21.4 - Non-ST elevation (NSTEMI) myocardial infarction (ICD-10) Atrial fibrillation with RVR ?I48.91 - Unspecified atrial fibrillation (ICD-10) COPD (chronic obstructive pulmonary disease) ?J44.9 - Chronic obstructive pulmonary disease, unspecified (ICD-10) Pneumonia ?J18.9 - Pneumonia, unspecified organism (ICD-10) Social History Little interest or pleasure in doing things: not at all Feeling down, depressed, or hopeless: not at all Exam Narrative Exam Narrative: Nurses note and vital signs reviewed and patient is not hypoxic. General: The patient appears dyspneic. She is able to speak in short sentences. Skin: Warm, dry, no pallor noted. There is no rash noted. Large ecchymosis present on the left lateral chest wall region without crepitus. Family reports it has been there for a few weeks. Head: Normocephalic, atraumatic Eye: Normal conjunctiva, no drainage Ears, Nose, Mouth, and Throat: oral mucosa is moist. Nares patent. Cardiovascular: Regular Rate and Rhythm Respiratory: Breath sounds are equal, she is tachypneic and does not take in deep breaths. Back: non-tender GI: Soft and nontender Musculoskeletal: Mild bilateral ankle edema present Neurological: A&O, normal speech, tremorous Psychiatric: Cooperative Constitutional Vital Signs, click to edit/add: Last Vital Signs Temp 99.2 F 02/15/25 10:28 Pulse 159 H 02/15/25 14:10 Resp 17 02/15/25 14:20 BP 177/80 H 02/15/25 14:01 Pulse Ox 100 02/15/25 14:20 O2 Del Method Nonrebreather 02/15/25 10:20 O2 Flow Rate 15 02/15/25 10:20 FiO2 50 02/15/25 10:25 Course Vital Signs Vital signs: Vital Signs Pulse Rate 160 H 02/15/25 10:15 Respiratory Rate 36 H 02/15/25 10:15 Pulse Oximetry 71 L 02/15/25 10:15 Oxygen Delivery Method Nasal Cannula 02/15/25 10:15 Oxygen Delivery Flow Rate 4 02/15/25 10:15 Temperature 99.2 F 02/15/25 10:28 Pulse Rate 159 H 02/15/25 14:10 Respiratory Rate 17 02/15/25 14:20 Blood Pressure 177/80 H 02/15/25 14:01 Pulse Oximetry 100 02/15/25 14:20 Oxygen Delivery Method Nonrebreather 02/15/25 10:20 Oxygen Delivery Flow Rate 15 02/15/25 10:20 Fraction of Inspired Oxygen 50 02/15/25 10:25 Medical Decision Making MDM Narrative Medical decision making narrative: Upon arrival the patient was given aerosol treatment and IV Solu-Medrol and placed on BiPAP. Her work of breathing improved and her respiratory rate come down. She is feeling more comfortable and is maintained on the BiPAP. Chest x- ray shows continued right lung base density. She has been treated with IV vancomycin for this pneumonia and she was given her morning dose of IV vancomycin here. She had not yet received it today. Family had already requested hospice consultation and they were to meet with the hospice clinical manager late this afternoon. The hospice clinical manager was able to come here to the hospital and speak with family thoroughly to give them options. I had an appropriate discussion with the patient's and the rest of the patient's family regarding DNR status. The patient continues to want to be intubated if the need arose. The patient would be most appropriately cared for at [facility] rather than here and this was discussed thoroughly with the family. Spoke to Dr. Sanchez at [facility] who accepts the patient. The patient is stable and agreeable for transfer. Differential Diagnosis Differential Diagnosis: Respiratory failure, pneumonia Medical Records Medical records reviewed: Yes I reviewed the patient's medical records Lab Data Lab results reviewed: Yes I reviewed the patient's lab results Labs: Lab Results 02/15/25 02/15/25 Range/Units 10:20 10:42 WBC 10.2 (4.0-11.0) 10^3/uL RBC 3.82 L (4.20-5.40) 10^6/uL Hgb 11.1 L (12.0-16.0) g/dL Hct 38.1 (36.0-48.0) % MCV 99.7 H (81.0-99.0) fL MCH 29.1 (26.7-34.0) pg MCHC 29.1 L (29.9-35.2) g/dL RDW 19.1 H (11.0-15.0) % Plt Count 281 (150-450) 10^3/uL MPV 9.4 L (9.5-13.5) fL Neut % (Auto) 73.8 (43.0-75.0) % Lymph % (Auto) 12.7 L (20.5-60.0) % [place] % (Auto) 10.8 (1.7-12.0) % Eos % (Auto) 2.2 (0.9-7.0) % Baso % (Auto) 0.2 (0.2-2.0) % Neut # (Auto) 7.6 H (1.4-6.5) 10^3/uL Lymph # (Auto) 1.3 (1.2-3.8) 10^3/uL [place] # (Auto) 1.1 H (0.3-0.8) 10^3/uL Eos # (Auto) 0.2 (0.0-0.7) 10^3/uL Baso # (Auto) 0.0 (0.0-0.1) 10^3/uL Abs Immat Gran (auto) 0.03 (0.00-0.03) 10^3/uL Imm/Tot Granulo (auto) 0.3 (0.0-0.5) % PT 16.7 H (9.0-11.6) sec INR 1.66 Sodium 147 H (136-145) mmol/L Potassium 4.0 (3.5-5.1) mmol/L Chloride 99 (98-107) mmol/L Carbon Dioxide 47.3 H (21.0-32.0) mmol/L Anion Gap 4.7 BUN 6.0 L (7.0-18.0) mg/dL Creatinine 0.32 L (0.55-1.02) mg/dL Est GFR ( Amer) >60 (>=60 mL/min/1.73m^2) Est GFR (Non-Af Amer) >60 (>=60 mL/min/1.73m^2) BUN/Creatinine Ratio 18.8 Glucose 141 H (74-106) mg/dL Lactate 1.9 (0.4-2.0) mmol/L Calcium 9.3 (8.5-10.1) mg/dL Troponin I High Sens 50.1 (4.0-51.3) pg/mL SARS-CoV-2 Ag (CV2AG) Negative (NEGATIVE) Imaging Data Chest x-ray: Radiologist's impression: ITS Impressions Chest X-Ray 02/15/25 10:14 IMPRESSION: OBSTRUCTIVE LUNG DISEASE WITH SCARRING AND/OR ATELECTASIS. CONTINUED MILD RIGHT BASILAR PLEURAL-PARENCHYMAL CHANGE. Impression dictated by: Angélica Burgess M.D. 02/15/2025 10:38 AM Dictation Location: [place] [address] Electronically authenticated by: [id number] Y Date: 02/15/2025 10:38 ECG Data Attestation: I personally reviewed and interpreted this ECG as follows: (EKG on my interpretation shows large amount of artifact, paced rhythm.) Critical Care Time Critical Care Time Critical Care Time: Yes Total Critical Care Time: 50 Attestation: Due to the high probability of sudden and clinically significant deterioration in the patient's condition he/she required the highest level of my preparedness to intervene urgently I provided critical care time including documentation time, medication orders and management, reevaluation, vital sign assessment, ordering and reviewing of lab tests, ordering and reviewing of x-ray studies, and admission orders. Aggregate critical care time is 50 minutes including only time during which I was engaged in work directly related to his/her care and did not include time spent treating other patients simultaneously. Discharge Plan Discharge Chief Complaint: Shortness of Breath/Dyspnea Clinical Impression: Respiratory failure Patient Disposition: [facility] Time of Disposition Decision: 14:49 Discharge Location: [facility] Condition: Fair Mode of Transportation: EMS
[2025-02-15 11:16] LABS: INR 1.66; Prothrombin Time 16.7 sec (9.0-11.6)
[2025-02-15] MEDS: VANCOMYCIN HCL 1,000 MG in 0.9 % SODIUM CHLORIDE 250 ML 200 MG IV (11:24)
--- NOTE | 2025-02-15 11:34 | PC.NURSE ---
1134- pt does look and act much better. states it's easier to breathe. remains on BiPAP. family at bedside
--- NOTE | 2025-02-15 11:37 | PC.NURSE ---
Pt's Indu WILLIAM (DIL), speaking with staff and informing of [facility] consult today -- their staff will be coming to hospital to discuss with family further options. Dr Pedroza aware
--- NOTE | 2025-02-15 13:44 | SWNOTE1 ---
VALENTIN spoke with Janice from [facility] in regards to pt. She voiced they have been following patient for several months, but she has not signed on to hospice or palliative care at this time. The family is aware of the services that hospice can offer and have been in contact with Janice off and on. Janice has spoke to family and doctor and they are unsure of plans for pt at this time. Possibility of pt needing higher level of care. VALENTIN to update Janice once decision is made.
--- NOTE | 2025-02-15 17:43 | PC.NURSE ---
pt is resting comfortably in bed at this time. no signs of resp distress. remaiins on BiPAP. Sleeping. Informed Indu WILLIAM, of her transfer update. Deny any other questions.
[2025-02-15] MEDS: DIAZEPAM 10 MG/2 ML SYRINGE 2.5 MG IV (18:40)
--- NOTE | 2025-02-15 19:17 | PC.NURSE ---
1917 - SPOKE WITH GAY AT [facility], GAVE PHONE REPORT. DENIES ANY OTHER NEEDS OR CONCERNS
--- NOTE | 2025-02-15 21:10 | PC.NURSE ---
[employer] Administrator checked this chart as a RpH from [facility] called with questions in regards to INR and vanco.
== END 2025-02-15 18:40 | disposition short-term general hospital (02) ==
PROVIDERS: Emergency Provider Emergency Medicine
DX: J96.90 Respiratory failure, unspecified, unspecified whether with hypoxia or hypercapnia (principal); J44.0 Chronic obstructive pulmonary disease with (acute) lower respiratory infection; J18.9 Pneumonia, unspecified organism; Z95.0 Presence of cardiac pacemaker
CPT/HCPCS: 36415; 71045; 80048; 83605; 84484; 85025; 85610; 87040; 87811; 93005; 94640; 94660; 96365; 96366; 96375; 96376; 99285; J2919; J3360; J3370